=== PATIENT | female | born 1950 | race Caucasian/White ===

== ENCOUNTER 2020-04-10 13:35 | Inpatient (IN) | payer MEDICARE, OTHER ==
[~2020-04-10] VITALS: Ht 160 cm; Wt 86.2 kg
[~2020-04-10 13:35] MED LIST: CIPRO500 MG PO
[2020-04-10] MEDS ORDERED: SODIUM CHLORIDE 0.9% 1000ML 1,000 ML IV STA (13:41)
--- NOTE | 2020-04-10 13:59 | Emergency Department Note ---
History of Present Illnes History of Present Illness Chief Complaint: Genitourinary History of Present Illness This is a 69 year old female . SENT FROM [facility] FOR HEMATURIA, WEAKNESS, AND PSEUDOMONAS IN URINE. CLIENT TO ROOM 9 AND PLACED IN CONTACT ISOLATION. HAS URINARY CATHETER IN PLACE. 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 Any updates have been documented here. (HÉCTOR THOMSON NP) Past Medical History Recent Fever: No Clinical Suspicion of Infectio: Yes New/Unexplained Change in Ment: No Past Medical History: Hypertension, CHF, UTI's, Hyperlipedemia Other Medical History: DYSPHAGIA, AMS UNSPECIFIED; CONSTIPATION;HIGH CHOLESTEROL ; ANEMIA DEMENTIA Past Surgical History: Cholecysctectomy (HÉCTOR THOMSON NP) Social History Smoking Cessation: Never Smoker Alcohol Use: None Any Illegal Drug Use: No TB Exposure/Symptoms: No (HÉCTOR THOMSON NP) Family History Family history of heart diseas: No (HÉCTOR THOMSON NP) Other Last Tetanus: UNKNOWN Any Pre-Existing Lines (PICC,: Yes (patel) (HÉCTOR THOMSON NP) Review of Systems Review of Systems Constitutional: no symptoms EENTM: no symptoms Cardiovascular: no symptoms Respiratory: no symptoms Gastrointestinal: no symptoms Genitourinary: no symptoms Musculoskeletal: no symptoms Neurological: no symptoms Psychological: no symptoms Endocrine: no symptoms Hematological/Lymphatic: no symptoms Review of other systems All other systems reviewed and negative. (HÉCTOR THOMSON NP) Physical Exam Related Data Allergies: Coded Allergies: No Known Allergies (Unverified , 02/17/16) Triage Vital Signs Vital Signs Date Time Temp Pulse Resp B/P (MAP) Pulse Ox O2 Delivery O2 Flow Rate FiO2 04/10/20 13:37 98.0 60 16 129/95 98 Vital signs reviewed: Yes (HÉCTOR THOMSON NP) Physical Exam CONSTITUTIONAL Constitutional: well-nourished HENT HENT: normocephalic, atraumatic HENT L/R: left ext ear normal, right ext ear normal EYES Eyes: conjunctivae normal NECK Neck: ROM normal PULMONARY Pulmonary: effort normal, breath sounds normal CARDIOVASCULAR Cardiovascular: regular rhythm, heart sounds normal, capillary refill normal, normal rate GASTROINTESTINAL Abdominal: soft, nontender, bowel sounds normal GENITOURINARY Genitourinary: exam deferred SKIN Skin: warm, dry; erythema, pale, rash, jaundiced, bruising, lesion, other MUSCULOSKELETAL Musculoskeletal: ROM normal NEUROLOGICAL Neurological: alert, other (orient x 2 ) PSYCHOLOGICAL Psychological: mood/affect normal, behavior normal Exam - additional comments pt hx dementia / pleasent / resting quietly Dr Sweet at bed side eval pt - explained why she was here and plan of care (HÉCTOR THOMSON NP) Results Laboratory Laboratory Laboratory Tests Test 04/10/20 14:24 04/10/20 13:10 White Blood Count 4.22 x10e3/uL (4.8-10.8) Red Blood Count 4.40 x10e6/uL (3.6-5.1) Hemoglobin 11.4 g/dL (12.0-16.0) Hematocrit 38.4 % (34.2-44.1) Mean Corpuscular Volume 87.3 fL (81-99) Mean Corpuscular Hemoglobin 25.9 pg (28-32) Mean Corpuscular Hemoglobin Concent 29.7 g/dL (31-35) Red Cell Distribution Width 16.3 % (11.7-14.4) Platelet Count 171 x10e3/uL (140-360) Neutrophils (%) (Auto) 65.2 % (38.7-80.0) Lymphocytes (%) (Auto) 19.9 % (18.0-39.1) Monocytes (%) (Auto) 6.2 % (4.4-11.3) Eosinophils (%) (Auto) 7.1 % (0.0-6.0) Basophils (%) (Auto) 0.9 % (0.0-1.0) Neutrophils # (Auto) 2.8 (2.1-6.9) Lymphocytes # (Auto) 0.8 (1.0-3.2) Monocytes # (Auto) 0.3 (0.2-0.8) Eosinophils # (Auto) 0.3 (0.0-0.4) Basophils # (Auto) 0.0 (0.0-0.1) Absolute Immature Granulocyte (auto 0.03 x10e3/uL (0-0.1) Prothrombin Time 13.4 seconds (11.9-14.5) Prothromb Time International Ratio 0.96 Activated Partial Thromboplast Time 34.3 seconds (23.8-35.5) Urine Color [employer] [place] (YELLOW) Urine Clarity Cloudy (CLEAR) Urine pH 6.5 (5 - 7) Urine Specific [place] >=1.030 (1.010-1.025) Urine Protein >=300 (NEGATIVE) Urine Glucose (UA) Negative (NEGATIVE) Urine Ketones Negative (NEGATIVE) Urine Blood Large (NEGATIVE) Urine Nitrite Negative (NEGATIVE) Urine Bilirubin Small (NEGATIVE) Urine Urobilinogen 1 mg/dL (0.2 - 1) Urine Leukocyte Esterase Large (NEGATIVE) Urine RBC >50 /HPF (0-5) Urine WBC >50 /HPF (0-5) Urine Epithelial Cells Few /LPF (NONE) Urine Bacteria Many /HPF (NONE) Sodium Level 143 mmol/L (136-145) Potassium Level 4.0 mmol/L (3.5-5.1) Chloride Level 107 mmol/L (98-107) Carbon Dioxide Level 27 mmol/L (22-29) Anion Gap 13.0 mmol/L (8-16) Blood Urea Nitrogen 13 mg/dL (7-26) Creatinine 1.04 mg/dL (0.57-1.11) Estimat Glomerular Filtration Rate 53 ML/MIN (60-) BUN/Creatinine Ratio 13 (6-25) Glucose Level 101 mg/dL (74-118) Calcium Level 8.7 mg/dL (8.4-10.2) Total Bilirubin 0.7 mg/dL (0.2-1.2) Aspartate Amino Transf (AST/SGOT) 16 IU/L (5-34) Alanine Aminotransferase (ALT/SGPT) 8 IU/L (0-55) Alkaline Phosphatase 115 IU/L (40-150) Creatine Kinase 11 IU/L (29-168) Creatine Kinase MB 0.20 ng/mL (0-5.0) Troponin I 0.003 ng/mL (0-0.300) Total Protein 6.9 g/dL (6.5-8.1) Albumin 2.7 g/dL (3.5-5.0) Globulin 4.2 g/dL (2.3-3.5) Albumin/Globulin Ratio 0.6 (0.8-2.0) Lab results reviewed: Yes (HÉCTOR THOMSON NP) Imaging Imaging results reviewed: Yes Impressions Procedure: [id number] DX/CHEST SINGLE (PORTABLE) Exam Date: 04/10/20 Exam Time: 1436 REPORT STATUS: Signed EXAMINATION: CHEST SINGLE (PORTABLE) INDICATION: Pseudomonas in urine. COMPARISON: None FINDINGS: TUBES and LINES: None. LUNGS: Lungs are well inflated. There is no evidence of pneumonia or pulmonary edema. Minimal patchy left basilar opacity, likely atelectasis. PLEURA: No pleural effusion or pneumothorax. HEART AND MEDIASTINUM: The cardiomediastinal silhouette is unremarkable. There are atherosclerotic calcifications within the aorta. BONES AND SOFT TISSUES: No acute osseous lesion. Soft tissues are unremarkable. UPPER ABDOMEN: No free air under the diaphragm. There are cholecystectomy clips. IMPRESSION: No acute thoracic abnormality. Signed by: Dr. Glenna Phipps MD on 04/10/2020 3:06 PM Dictated By: GLENNA PHIPPS MD [id number] Transcribed By: DAVID on 04/10/20 1506 COPY TO: HÉCTOR THOMSON NP~ (HÉCTOR THOMSON NP) Procedures 12 Lead ECG Interpretation Embedded Firmware Engineer: Interpreted by ED physician (Dr Peña) Date: April 10, 2020 Time: 15:29 Rhythm: sinus bradycardia Rate: bradycardia BPM: 50 QRS axis: normal ST segments normal: Yes T waves normal: Yes Other findings: no other findings (HÉCTOR THOMSON NP) Critical Care Time Subsequent provider I assumed direction of critical care for this patient from another provider of my specialty. (HÉCTOR THOMSON NP) Assessment & Plan Assessment & Plan Problems: (1) Urinary tract infection Assessment & Plan 69y f presented to ed from [place] sent to ed for eval admit for iv abx for UTI - Dr Peña in eval pt status - lab ekg cxr ordered - pt medicated w/ ns and tobramycin in ed Dr Peña spoke w/ Dr Rizvi will admit Dr Peña spoke w/ Dr Funez will consult (HÉCTOR THOMSON NP) Depart Disposition: ADMITTED Last Vital Signs Date Time Temp Pulse Resp B/P (MAP) Pulse Ox O2 Delivery O2 Flow Rate FiO2 5/17/20 13:37 98.0 60 16 129/95 98 (HÉCTOR THOMSON ELECTRICAL SYSTEMS DESIGNER) Home Meds Reported Medications Ciprofloxacin Hcl (CIPRO) 500 Mg Tablet, 500 MG PO Q12H, #30 TAB 02/17/16 Medications in the ED Sodium Chloride 1,000 ml @ 0 mls/hr Q0M STAT IV ; Start 04/10/20 at 13:41; Stop 04/10/20 at 13:42 Tobramycin 80 mg ONCE ONCE IV ; Start 04/10/20 at 13:45; Stop 04/10/20 at 13:46; Status UNV (HÉCTOR THOMSON ELECTRICAL SYSTEMS DESIGNER) Attestation Provider Attestation Pt seen and examined with laborer hoisting, pt presents for GENERALIZED WEAKNESS, AND UTI WITH CX GROWING PSEUDOMONAS SENSITIVE ONLY TO TOBRAMYCIN Exam as follows - ALERT, ORIENTED TO NAME & PLACE NOT TIME, GENERALIZED 4/5 STR THROUGHOUT, NON-FOCAL NEURO EXAM I agree with laborer hoisting assessment and disposition. (KENY PEÑA MD) HÉCTOR THOMSON NP April 10, 2020 13:58 KENY PEÑA MD April 10, 2020 15:48
[2020-04-10] MEDS ORDERED: TOBRAMYCIN 40 MG/ML 2ML VIAL IV ONE (14:00)
[2020-04-10] MEDS ORDERED: TOBRAMYCIN IV ONE (14:30)
[2020-04-10] MEDS ORDERED: SODIUM CHLORIDE 0.9% IV ONE (14:30)
[2020-04-10 14:33] LABS: BASOPHILS % 0.9 % (0.0-1.0); EOSINOPHILS # (AUTO) 0.3 (0.0-0.4); EOSINOPHILS % 7.1 % (0.0-6.0); HEMATOCRIT 38.4 % (34.2-44.1); HEMOGLOBIN 11.4 g/dL (12.0-16.0); LYMPHOCYTES # (AUTO) 0.8 (1.0-3.2); LYMPHOCYTES % 19.9 % (18.0-39.1); MEAN CORPUSCULAR HEMOGLOBIN 25.9 pg (28-32); MEAN CORPUSCULAR HGB CONC 29.7 g/dL (31-35); MEAN CORPUSCULAR VOLUME 87.3 fL (81-99); MONOCYTES # (AUTO) 0.3 (0.2-0.8); MONOCYTES % 6.2 % (4.4-11.3); NEUTROPHILS # (AUTO) 2.8 (2.1-6.9); NEUTROPHILS % 65.2 % (38.7-80.0); PLATELET COUNT 171 x10e3/uL (140-360); RED CELL DISTRIBUTION WIDTH 16.3 % (11.7-14.4)
[2020-04-10 14:45] LABS: INR 0.96; PROTHROMBIN TIME 13.4 seconds (11.9-14.5)
[2020-04-10 14:46] LABS: PARTIAL THROMBOPLASTIN TIME 34.3 seconds (23.8-35.5)
[2020-04-10 14:54] LABS: ALBUMIN 2.7 g/dL (3.5-5.0); ALBUMIN/GLOBULIN RATIO 0.6 (0.8-2.0); CALCIUM 8.7 mg/dL (8.4-10.2); CREATININE, SERUM 1.04 mg/dL (0.57-1.11)
[2020-04-10 15:00] LABS: CREATINE KINASE MB 0.2 ng/mL (0-5.0)
--- NOTE | 2020-04-10 15:09 | Diagnostic Imaging Report ---
EXAMINATION: CHEST SINGLE (PORTABLE) INDICATION: Pseudomonas in urine. COMPARISON: None FINDINGS: TUBES and LINES: None. LUNGS: Lungs are well inflated. There is no evidence of pneumonia or pulmonary edema. Minimal patchy left basilar opacity, likely atelectasis. PLEURA: No pleural effusion or pneumothorax. HEART AND MEDIASTINUM: The cardiomediastinal silhouette is unremarkable. There are atherosclerotic calcifications within the aorta. BONES AND SOFT TISSUES: No acute osseous lesion. Soft tissues are unremarkable. UPPER ABDOMEN: No free air under the diaphragm. There are cholecystectomy clips. IMPRESSION: No acute thoracic abnormality. Signed by: Dr. Eber Buitrago MD on 04/10/2020 3:06 PM
[2020-04-10 15:15] LABS: CLARITY,URINE CLOUDY (CLEAR); COLOR,URINE ORANGE (YELLOW); LEUKOCYTE ESTERASE ,URINE LARGE (NEGATIVE); NITRITE,URINE NEGATIVE (NEGATIVE); PROTEIN,URINE DIPSTICK >=300 (NEGATIVE)
[2020-04-10 15:16] LABS: BILIRUBIN,URINE SMALL (NEGATIVE); KETONES,URINE NEGATIVE (NEGATIVE); URINE UROBILINOGEN 1 mg/dL (0.2 - 1)
[2020-04-10 15:21] LABS: WBC,URINE (MAN) >50 /HPF (0-5)
[2020-04-10 15:22] LABS: RBC,URINE >50 /HPF (0-5)
[2020-04-10 15:23] LABS: BACTERIA,URINE MANY /HPF; EPITHELIAL CELLS,URINE FEW /LPF
[2020-04-10] MEDS ORDERED: SODIUM CHLORIDE 0.9% 1000ML 1,000 ML IV ONE (15:45)
[2020-04-10] MEDS ORDERED: ONDANSETRON HCL INJ 2MG/ML 2ML 2 MG/ML VIAL IV PRN (15:45)
[2020-04-10 17:10] VITALS: BP 119/69
--- NOTE | 2020-04-10 17:10 | NUR ---
PATIENT RECEIVED FROM ER PER STRETCHER. ALERT AND VERBALLY RESPONSIVE. SKIN WARM AND DRY TO TOUCH WITH SOME REDNESS TO PERINEAL AREA AND SACRUM, RESPIRATION EVEN AND UNLABORED, ABDOMEN SOFT AND NON DISTENDED. SUPRAPUBIC CATHETER WITH REDNESS AROUND THE SITE. ASSISTED WITH DIAPER CHANGE, HAD A MODERATE BM. BED IN LOWER POSITION AND LOCKED. CALL LIGHT AT REACH.
--- NOTE | 2020-04-10 19:09 | Diagnostic Imaging Report ---
EXAM: CT Abdomen and Pelvis WITHOUT contrast INDICATION: Stone protocol. COMPARISON: None. TECHNIQUE: Abdomen and pelvis were scanned utilizing a multidetector helical scanner from the lung base to the pubic symphysis without administration of IV contrast. Absence of intravenous contrast decreases sensitivity for detection of focal lesions and vascular pathology. Coronal and sagittal reformations were obtained. Stone protocol is performed. IV CONTRAST: None. ORAL CONTRAST: None. RADIATION DOSE: Total DLP: 413.4 mGy*cm Estimated effective dose: (DLP x 0.015 x size factor) mSv COMPLICATIONS: None FINDINGS: LOWER THORAX: Mitral annular calcifications. Trace pericardial effusion. Mild cardiomegaly. Coronary atherosclerosis. Bronchial wall thickening with minimal patchy opacities in the bilateral lower lobes. HEPATOBILIARY: No focal hepatic lesions. No biliary ductal dilation. GALLBLADDER: Status post cholecystectomy. SPLEEN: No splenomegaly. PANCREAS: No focal masses or ductal dilatation. Fatty atrophy. ADRENALS: No adrenal nodules KIDNEYS/URETERS: There is a 1.1 cm conglomerate of stones in the right renal pelvis with mild right pelviectasis and no hydronephrosis. There is a 0.8 cm nonobstructing left lower pole renal stone. Additional punctate bilateral nonobstructing nephrolithiasis. No evidence of ureteral stone. Left-sided double-J internal ureteral stent without hydronephrosis. No evidence of solid mass. GI TRACT: No evidence of bowel obstruction or wall thickening. Moderate amount of stool in the colon. Sigmoid colonic diverticulosis without evidence of colitis. Normal appendix. PELVIC ORGANS/BLADDER: Suprapubic catheter terminates in the bladder which appears decompressed and possibly thick walled. LYMPH NODES: No lymphadenopathy. VESSELS: There is severe atherosclerotic disease in the aorta and major arterial branches. PERITONEUM / RETROPERITONEUM: No free air or fluid. BONES: Unremarkable. SOFT TISSUES: Diffuse mild anasarca. There is a midline decubitus ulcer which does not extend to the bony surface. There is subcutaneous edema within the presacral and posterior sacral soft tissues. No specific findings of osteomyelitis. Skin folds versus subcutaneous decubitus ulcers in the bilateral gluteal regions. IMPRESSION: Bilateral nonobstructing left lithiasis, measuring up to 1.1 cm in the right renal pelvis and 0.8 cm in the left lower pole kidney. Left-sided internal ureteral stent in place. No evidence of ureteral stone. Suprapubic catheter terminates in the bladder which is decompressed and appears mildly thick-walled. Suggest correlation for possible cystitis. Decubitus ulcer superficial to the coccyx which extends inferiorly to the level of the anus. Surrounding inflammatory changes. No specific findings of osteomyelitis. Skin folds versus subcutaneous decubitus ulcers in the bilateral gluteal regions. Recommend clinical correlation. Nonspecific presacral fat stranding may be secondary to anasarca or nonspecific inflammatory changes. Bronchial wall thickening with minimal patchy opacities in the lower lobes, likely representing small foci of aspiration in this patient with dementia. Signed by: Dr. Eber Buitrago MD on 04/10/2020 7:06 PM
[2020-04-10] MEDS ORDERED: ACETAMINOPHEN 325 MG TAB PO PRN (19:15)
[2020-04-10] MEDS ORDERED: HYDRALAZINE HCL 20 MG/ML VIAL IV PRN (19:15)
[2020-04-10] MEDS ORDERED: MELATONIN 5 MG TABLET PO PRN (19:15)
[2020-04-10] MEDS ORDERED: METOPROLOL TART50 MG PO (19:22)
[2020-04-10] MEDS ORDERED: LACTULOSE20 GM/30 M PO (19:22)
[2020-04-10] MEDS ORDERED: MIDODRINE HCL5 MG PO (19:22)
[2020-04-10] MEDS ORDERED: NEPHRO-VITE TABL1 EA PO (19:22)
[2020-04-10] MEDS ORDERED: DOCUSATE SODIU100 MG PO (19:22)
[2020-04-10] MEDS ORDERED: LEVOTHYROXINE75 MCG PO (19:22)
[2020-04-10] MEDS ORDERED: ASPIRIN81 MG PO (19:22)
[2020-04-10] MEDS ORDERED: FERROUS SULFAT325 MG PO (19:22)
[2020-04-10] MEDS ORDERED: ATORVASTATIN CA40 MG PO (19:22)
[2020-04-10] MEDS ORDERED: PRADAXA75 MG PO (19:22)
[2020-04-10] MEDS ORDERED: LORAZEPAM INJ 2 MG/ML VIAL IV PRN (19:30)
[2020-04-10] MEDS ORDERED: ACETAMINOPHEN/CODEINE 300MG - 30MG TAB PO PRN (19:30)
[2020-04-10 20:35] VITALS: BP 103/57
[2020-04-10] MEDS: TOBRAMYCIN IV SCH (20:47)
[2020-04-10] MEDS: SODIUM CHLORIDE 0.9% IV SCH (20:47)
[2020-04-10] MEDS: METOPROLOL TARTRATE 50 MG TAB PO SCH (20:47)
[2020-04-10] MEDS ORDERED: ATORVASTATIN 40 MG TAB PO SCH (21:00)
[2020-04-10 21:25] VITALS: BP 103/57
[2020-04-10] MEDS ORDERED: TOBRAMYCIN 40 MG/ML 2ML VIAL IV SCH (22:00)
[2020-04-11 01:08] VITALS: BP 126/47
[2020-04-11] MEDS: TOBRAMYCIN IV SCH ×2 (05:42→14:43)
[2020-04-11] MEDS: SODIUM CHLORIDE 0.9% IV SCH ×2 (05:42→14:43)
[2020-04-11 05:48] VITALS: BP 108/53
[2020-04-11] MEDS ORDERED: LEVOTHYROXINE SODIUM 75 MCG TAB PO SCH (06:00)
--- NOTE | 2020-04-11 06:38 | NUR ---
patient is resting comfortably in the bed. no distress noted. bed is in lowest position.
[2020-04-11 06:48] LABS: BASOPHILS # (AUTO) 0.1 (0.0-0.1); EOSINOPHILS # (AUTO) 0.3 (0.0-0.4); EOSINOPHILS % 6.3 % (0.0-6.0); HEMOGLOBIN 10.2 g/dL (12.0-16.0); LYMPHOCYTES # (AUTO) 0.9 (1.0-3.2); LYMPHOCYTES % 17.7 % (18.0-39.1); MEAN CORPUSCULAR HEMOGLOBIN 26.8 pg (28-32); MEAN CORPUSCULAR VOLUME 89.2 fL (81-99); MONOCYTES # (AUTO) 0.3 (0.2-0.8); MONOCYTES % 5.3 % (4.4-11.3); NEUTROPHILS # (AUTO) 3.5 (2.1-6.9); NEUTROPHILS % 69.3 % (38.7-80.0); PLATELET COUNT 144 x10e3/uL (140-360); RED BLOOD COUNT 3.81 x10e6/uL (3.6-5.1); RED CELL DISTRIBUTION WIDTH 15.9 % (11.7-14.4)
[2020-04-11 07:01] LABS: ALBUMIN 2.3 g/dL (3.5-5.0); ALBUMIN/GLOBULIN RATIO 0.7 (0.8-2.0); ALKALINE PHOSPHATASE 91 IU/L (40-150); ANION GAP 10.9 mmol/L (8-16); BLOOD UREA NITROGEN 11 mg/dL (7-26); BUN/CREATININE RATIO 13 (6-25); CALCIUM 8.1 mg/dL (8.4-10.2); CARBON DIOXIDE 21 mmol/L (22-29); CHLORIDE 114 mmol/L (98-107); CREATININE, SERUM 0.86 mg/dL (0.57-1.11); EST GLOMERULAR FILTRATION RATE > 60 ML/MIN (60-); GLUCOSE 80 mg/dL (74-118); POTASSIUM 3.9 mmol/L (3.5-5.1); SODIUM 142 mmol/L (136-145)
[2020-04-11 07:02] LABS: ALANINE AMINOTRANSFERASE < 6 IU/L (0-55)
--- NOTE | 2020-04-11 07:14 | NUR ---
PATIENT IN BED RESTING WITH EYES CLOSED, NO DISTRESS NOTED. SUPRAPUBIC CATHETER DRAINING PINKISH URINE. BED IN LOWER POSITION, CALL LIGHT AT REACH.
[2020-04-11] MEDS: FAMOTIDINE 20 MG TAB PO SCH ×2 (07:30→16:30)
[2020-04-11 07:41] VITALS: BP 120/56
[2020-04-11 07:49] VITALS: BP 120/56
[2020-04-11] MEDS: METOPROLOL TARTRATE 50 MG TAB PO SCH (09:00)
[2020-04-11] MEDS ORDERED: DABIGATRAN ETEXILATE 75 MG CAP PO SCH (09:00)
[2020-04-11] MEDS ORDERED: ASPIRIN 81 MG CHEW TAB PO SCH (09:00)
[2020-04-11] MEDS ORDERED: LACTULOSE SYRUP 20 GM/30 ML UDC PO SCH (09:00)
[2020-04-11] MEDS ORDERED: DOCUSATE SODIUM 100 MG CAP PO SCH (09:00)
[2020-04-11] MEDS: FERROUS SULFATE 325 MG TAB PO SCH ×2 (09:10→17:16)
[2020-04-11] MEDS: MIDODRINE HCL 5 MG TABLET PO SCH ×2 (09:10→17:16)
--- NOTE | 2020-04-11 11:08 | NUR ---
WOUND CARE STAFF IN TO SEE PATIENT. NEW ORDER RECEIVED.
[2020-04-11 11:35] VITALS: BP 129/53
--- NOTE | 2020-04-11 14:23 | NUR ---
WOUND CARE CONSULT FOR 69 YO FEMALE HX OF DEMENTIA , UTI NAVYA PUP STATUS AND INTERVENTIONS AND MATTRESS LABS: WBC-PEND HGB_PEND GLUCOSE-PEND SKIN ASSESSMENT COMPLETE PATIENT PRESENTS WITH SACRAL STAGE 2 ULCERATION 0.5CM X0.5CM X0.1CM DENUDED ASTRID AREA RELATED TO MOISTURE IRRITATION RECOMMENDATIONS: NURSING TO CONTINUE TO MAINTAIN MODERATE PUP STATUS AND INTERVENTIONS AND ALTERNATING PRESSURE MATTRESS NURSING TO CONTINUE TO ASSIST PATIENT OUT OF BED FOR MEALS AND MUCH TOLERATED NURSING TO CONTINUE TO ASSIST PATIENT NEEDED WITH MEALS AND NUTRITIONAL SUPPLEMENTS TO ENSURE PROPER REQUIREMENTS FOR HEALING NURSING TO CONTINUE TO OFFLOAD FEET AND HEELS NEEDED WITH PILLOW SUSPENSION WHEN IN BED NURSING TO CLEAN SACRAL STAGE 2 ULCERATION WITH NORMAL SALINE DAILY AND APPLY VENELEX OINTMENT AND ALLEVYN FOAM DRESSING NURSING TO CLEAN ASTRID AREA IRRITATION WITH SOAP AND WATER DAILY AND APPLY REMEDY BARRIER PASTE KEEP PATIENT CLEAN AND DRY Addendum: 04/11/20 at 1429 by Everett Galvan RN Amended: Links added.
--- NOTE | 2020-04-11 14:46 | NUR ---
Spoke with DAX Phillip regarding plan. Possible transfer back to [place] today, pending ID rec for abx. Spoke with pt's daughter in law Mounika Brunson [phone] regarding DC plan. Pt lives at [facility] and family is agreeable with pt returning on discharge. Choice letter placed in front of chart. Spoke to Osmel, director of online merchandising at [facility]. Updated her on discharge plan. States pt can return today, if discharged. Will call back with room number. Clinicals faxed to [facility] at [phone].
--- NOTE | 2020-04-11 15:22 | NUR ---
PATIENT ASSISTED WITH DIAPER CHANGE, HAD A LARGE BM. REPOSITIONED IN BED, CALL LIGHT AT REACH.
[2020-04-11 16:01] VITALS: BP 119/63
--- NOTE | 2020-04-11 16:23 | NUR ---
LONG-TERM FACILITY DISCHARGE INFORMATION PATIENT HAS BEEN ACCEPTED TO: [facility] [address] [place] [address] ACCEPTING STABLE HAND: Dario Rice ACCEPTING MD: Dr. Janay Brody ROOM: 48 NURSE CALL REPORT TO: [phone] IMM SIGNED AND OBTAINED (if applicable): THE FOLLOWING DOCUMENTS MUST ACCOMPANY PATIENT FOR TRANSFER: copy of chart, transfer MAR COPIED CHART: [place], rn progressive care unit RTF: completed and placed with pt's packet at nurses station; MEGHA Gunter informed [id number] DNR: n/a Spoke with Osmel. Informed her that [facility] test every pt for COVID, regardless of symptoms, and results are still pending. She states it's fine to send pt back since they just tested the whole facility last week and pt was negative. Also spoke with Osmel about pt's medications - pt is to not receive Aspirin and Pradaxa needs to be stopped starting Saturday. Pt to return to hospital on Saturday for urologic procedure on Saturday.
--- NOTE | 2020-04-11 18:49 | NUR ---
PATIENT TRANSFERRED TO HALF-WAY FACILITY. REPORT CALLED AND GIVEN TO RECEIVING NURSE. IV TO LEFT AC REMOVED WITH TIP INTACT. ALL PERSONAL ITEMS TAKEN WITH PATIENT. FAMILY MEMBER NOTIFIED OF TRANSFER. LEFT UNIT ON STRETCHER PER AMBULANCE IN STABLE CONDITION.
--- NOTE | 2020-04-12 01:02 | Discharge Summary ---
ADMISSION DIAGNOSES: 1. Pseudomonas urinary tract infection, present on admission. 2. Hypertension. 3. Dementia. 4. Bilateral nonobstructing stone with left stent. 5. Coronary artery disease. 6. Hypothyroidism. DISCHARGE DIAGNOSES: 1. Pseudomonas urinary tract infection, present on admission. 2. Hypertension. 3. Dementia. 4. Bilateral nonobstructing stone with left stent. 5. Coronary artery disease. 6. Hypothyroidism.. HISTORY: Hypertension, dementia, hyperlipidemia, hypothyroidism, CAD, neurogenic bladder with suprapubic catheter placement. SURGICAL HISTORY: Unable to obtain. FAMILY HISTORY: Unable to obtain. SOCIAL HISTORY: Noncontributory. HOSPITAL COURSE: A 69-year-old female, admitted from [facility] for weakness and Pseudomonas in the urine. Per custodial staff, the patient was sent to the hospital to monitor renal function, even though they are able to do tobramycin IV at the facility. Due to the suprapubic catheter, Urology was consulted and Infectious Disease was also consulted. Due to the bilateral nonobstructing stone and the left stent, Urology wants to have a cystoscopy and take out the stones and exchange the stent, but the patient is taking aspirin and Pradaxa in the custodial. Her last dose was yesterday. According to Urology, the patient needs to be off aspirin for one week and according to Dr. Rizvi, she can be off the Pradaxa for 2 days. retirement staff was instructed on these requests. Per Infectious Disease recommendation, the patient is colonized with Pseudomonas. She does not have an acute Pseudomonas UTI. They recommend that she does not get any antibiotics as that will increase her resistance. Dr. Rizvi agrees with plan. The patient was discharged back to [facility] with the aspirin and anticoagulation instructions and will readmit in one week for Urology workup. At the time of discharge, vital signs are stable and the patient afebrile. Dictated by Marjan Kwok NP Festus Rizvi MD MEAGHAN/MODL /[id number]
[2020-04-12] MEDS ORDERED: BALSAM PERU/CASTOR OIL 60 GM OINT...G. TP SCH (09:00)
--- NOTE | 2020-04-12 11:18 | NUR ---
. Pseudomonas urinary tract infection, present on admission. 2. Hypertension. 3. Dementia. 4. Bilateral nonobstructing stone with left stent. 5. Coronary artery disease. 6. Hypothyroidism. [id number] late entery 04/11/2020 patiient was seen and examined
--- NOTE | 2020-04-12 16:19 | Consultation ---
DATE OF CONSULTATION: 04/12/2020 REASON FOR CONSULTATION: UTI. HISTORY OF PRESENT ILLNESS: This patient, who is a 69-year-old female, who comes into the emergency room of [facility] with a diagnosis of altered mental status. The patient, who does have underlying history of hypertension, dementia, hyperlipidemia, obesity, hypothyroidism, suprapubic catheter, neurogenic bladder, and coronary artery disease, comes in with altered mental status. Urine culture shows Pseudomonas. The patient was started on antibiotic and Infectious Disease was consulted. When I saw the patient, she was alert. She is complaining of shoulder pain. Since her hospitalization, there was no fever, no chills. She is confused, but that is her underlying condition. The patient when she first came, she was on aspirin 81 mg daily, atorvastatin 40 daily, Pradaxa, docusate, folic acid, and levothyroxine. PAST MEDICAL HISTORY: In addition to what mentioned above, hypothyroidism. PAST SURGICAL HISTORY: Suprapubic catheter. ALLERGIES: NKA. SOCIAL HISTORY: From halfway. FAMILY HISTORY: Could not be obtained. REVIEW OF SYSTEMS: She denies any as mentioned above. LABORATORY DATA: White count 5.29 and hemoglobin 10.2. Sodium 142, potassium 3.9 with creatinine 0.86. The patient apparently was getting tobramycin. Her blood culture was negative. Urine culture showed 10-50,000 E. coli pansensitive and I was told at halfway she had Pseudomonas aeruginosa. PHYSICAL EXAMINATION: GENERAL: She is currently alert and oriented. Does not seem to be in acute distress. VITAL SIGNS: Stable, currently afebrile. HEENT: She is not icteric. NECK: Supple. CHEST: Clear. COR: S1 and S2. No S3, S4, or murmur. ABDOMEN: Soft. Bowel sounds present. No tenderness. EXTREMITIES: No edema. IMPRESSION: 1. This 69-year-old from a halfway comes with altered mental status. 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 There is no need for antibiotic. Continue local care. Can try to give Hiprex 1 g p.o. b.i.d. 2. No need for antibiotic. Discussed with Internal Medicine. Answered all their questions. 3. Dementia. 4. History of hypothyroidism. Thank you for asking me to see this patient. MD ERIC West/CARMELA /[id number]
[2020-04-12] MEDS ORDERED: [UNRECOGNIZED DRUG - OTHER] TOP (17:09)
[2020-04-12] MEDS ORDERED: ACETAMINOPHEN650 M1 PO (17:09)
[2020-04-12] MEDS ORDERED: MELATONIN3 MG PO (17:09)
[2020-04-12] MEDS ORDERED: ZOFRAN8 MG PO (17:09)
== END 2020-04-11 18:48 | DRG 699 ==
LOC: ER 14:08 → ERHOLD 15:47 → MED/SURG3 16:16
PROVIDERS: ADMIT Internal Medicine; ATTEND Internal Medicine
DX: T83.510A Infection and inflammatory reaction due to cystostomy catheter, initial encounter (principal); N30.00 Acute cystitis without hematuria; R78.81 Bacteremia; N20.1 Calculus of ureter; B96.5 Pseudomonas (aeruginosa) (mallei) (pseudomallei) as the cause of diseases classified elsewhere; I10 Essential (primary) hypertension; F03.90 Unspecified dementia, unspecified severity, without behavioral disturbance, psychotic disturbance, mood disturbance, and anxiety; E78.5 Hyperlipidemia, unspecified; E03.9 Hypothyroidism, unspecified; I25.10 Atherosclerotic heart disease of native coronary artery without angina pectoris; N31.9 Neuromuscular dysfunction of bladder, unspecified; Z96.0 Presence of urogenital implants; L89.892 Pressure ulcer of other site, stage 2; R41.82 Altered mental status, unspecified; D64.9 Anemia, unspecified; E66.9 Obesity, unspecified; Z68.33 Body mass index [BMI] 33.0-33.9, adult; B96.20 Unspecified Escherichia coli [E. coli] as the cause of diseases classified elsewhere
CPT/HCPCS: 36415; 71045; 74176; 80053; 81001; 82550; 82553; 84443; 84484; 85025; 85610; 85730; 87040; 87086; 87186; 87635; 93005; 97139; 99251; J3260; J7030

== ENCOUNTER → 2020-04-13 | Day surgery (SDC) | payer MEDICARE ==
[~2020-04-13] MED LIST changes: +ACETAMINOPHEN650 M1 PO; +ASPIRIN81 MG PO; +ATORVASTATIN CA40 MG PO; +B&O 60MG R/S 60 MG SUPP PR ONE; +BUPIVACAINE HCL 0.5% INJ 30 ML VIAL INJ ONE; +CEFAZOLIN SOD 1 GM/NS 50ML 50 ML IV ONE; +DOCUSATE SODIU100 MG PO; +ETOMIDATE 2 MG/ML 10 ML INJ IV ONE; +FENTANYL CITRATE/PF 100MCG/2 ML INJ ONE; +FERROUS SULFAT325 MG PO; +IOPAMIDOL 300MG/ML 50ML INFUS..BTL IV ONE; +LACTULOSE20 GM/30 M PO; +LEVOTHYROXINE75 MCG PO; +LIDOCAINE 1% W/EPINEPHRINE 20 ML VIAL ONE; +MELATONIN3 MG PO; +METOPROLOL TART50 MG PO; +MIDODRINE HCL5 MG PO; +NEPHRO-VITE TABL1 EA PO; +PRADAXA75 MG PO; +SEVOFLURANE INHAL SOLN 250 ML PEN BTL ONE; +SODIUM CHLORIDE 0.9% IV ONE; +TOBRAMYCIN 40 MG/ML 2ML VIAL IV ONE; +TOBRAMYCIN IV ONE; +ZOFRAN8 MG PO; +[UNRECOGNIZED DRUG - OTHER] TOP
--- NOTE | 2020-04-13 12:44 | Diagnostic Imaging Report ---
OR Fluoroscopy: IMPRESSION: Fluoroscopy service provided in the OR. Interpretation not requested. Signed by: Josiah Rendon MD on 04/13/2020 12:40 PM
[2020-04-13 12:55] VITALS: BP 146/55
--- NOTE | 2020-04-13 14:09 | Operative Report ---
DATE OF PROCEDURE: 04/13/2020 SURGEON: Clayton Du MD SERVICE: Urology. PREOPERATIVE DIAGNOSES: 1. Bilateral nephrolithiasis. 2. Left double-J stent. 3. Urinary tract infection. 4. Chronic suprapubic tube. POSTOPERATIVE DIAGNOSES: 1. Bilateral nephrolithiasis. 2. Left double-J stent. 3. Urinary tract infection. 4. Chronic suprapubic tube. OPERATIONS PERFORMED: 1. Cystoscopy and right retrograde pyelograms under fluoroscopic control, not related to the contralateral side. 2. Placement of double-J stent to the right side, 22 cm long 6-[place]. 3. Removal of double-J stent from the left kidney. 4. Left retrograde pyelograms under fluoroscopy control. 5. Left ureteroscopy with holmium laser fragmentation of stone. 6. Placement of double-J stent to the left side. This is done for hydronephrosis as well as the stone. 7. Interpretation of x-ray. Radiologist not present. 8. Supervision of fluoroscopy. Radiologist not present. 9. Change of suprapubic tube, 24-[place] 5 mL. PHOTO OPTICS TECHNICIAN: None. ANESTHESIA: General. CLINICAL INDICATION NOTE: This is a 69-year-old [facility] patient, who has bilateral nephrolithiasis. She had treatment of the stone initially on the left side by another urologist and in another facility. She has a double-J stent in place. She was brought for assessment of both sides and possible laser treatment of stones on the left. Procedure was discussed with her daughter. Potential benefit and complication discussed and this is a staged procedure. She will require additional procedures in the future. DESCRIPTION OF PROCEDURE AND FINDING: After proper level of anesthesia was achieved, she was placed in lithotomy position, prepped and draped in a sterile fashion. Urethra inspected and is unremarkable. The bladder is quite small and appeared to be having inflammatory changes in the bladder. The double-J stent was protruding to the left ureteral orifice. The right ureteral orifice was identified. Open-end catheter was placed and retrograde pyelogram demonstrating minimal dilation of the ureter and upper collecting system. A possibility of a stone was seen on the x-ray and in the pelvis. The J-stent was then placed with a 6-[place] 22 cm long to the right side. Proper position was verified by x-ray and endoscopy. Following this, the left double-J stent was removed. Open-end catheter was inserted. Retrograde pyelogram demonstrating some minimal dilation. No obstruction of the ureter. Wire was kept in place and a flexible ureteroscopy was done. Stones were identified in the mid calyx, however, was not possible to enter the lower calyx stones. A few stone was seen and fragmented with holmium laser 200 fiber. Following this, a wire was kept in place and a double-J stent 6-[place] 22 cm long was properly positioned on the left side. The bladder was then irrigated. The scope was removed. The suprapubic tube was removed and a 24-[place] 5 mL Jansen catheter was inserted. The suprapubic x-ray was done with the cystogram to verify the proper positioning of the catheter. The patient tolerated the procedure well and was transferred in satisfactory condition to recovery room. If she recovers well, she may be sent back to the [facility]. The procedure was explained and discussed with her daughter. MD TENISHA Dyer/CARMELA /[id number]
--- OUTSIDE RECORDS SUMMARY | 2020-04-14 08:49 | XMS REPORT ---
Author Author [facility] t Organization [facility] Address [address] [place] [address] Phone Unavailable Care Team Providers Care Factory Process Workers Name Role Phone MD Miguel REA PCP HAMPEL, NEHEMIA Attphys Unavailable JUANY AWAD Attphys Unavailable JUANY AWAD Admphys Unavailable Payers Payer Name Policy Type Policy Number Effective Date Expiration Date S ource Advance Directives Directive Decision Effective Date Termination Date Comments Sour ce Yes N/A [facility] Problems Condition Name Condition Details Condition Category Status Onset Date Resolution Date Last Treatment Date Treating Clinician Comments Source Urinary tract infection Problem [facility] Weakness Problem [facility] Dementia Problem [facility] Pseudomonas urinary tract infection Problem [facility] Allergies, Adverse Reactions, Alerts Allergy Name Allergy Type Status Severity Reaction(s) Onset Date Inacti ve Date Treating Clinician Comments Source No Known Allergies DA Active U 2020-03-24 00:00:00 [facility] No Known Allergies DA Active U 2019-06-26 00:00:00 [facility] No Known Allergies DA Active U 2019-05-04 00:00:00 [facility] No Known Allergies DA Active U 2019-03-07 00:00:00 [facility] No Known Allergies DA Active U 2017-11-26 00:00:00 [facility] Social History Social Habit Start Date Stop Date Quantity Comments Source Sex Assigned At 1950 00:00:00 1950 00:00:00 Female [facility] Medications Ordered Medication Name Filled Medication Name Start Date Stop Da te Current Medication? Ordering Clinician Indication Dosage Frequency Signature (SIG) Comments Components Source Aspirin Aspirin Yes 1 [facility] Atorvastatin Calcium Atorvastatin Calcium Yes 40 [facility] Dabigatran Etexilate Mesylate (Pradaxa) 75 Mg CAPSULE Dabigatran Etexilate Mesylate (Pradaxa) 75 Mg CAPSULE Yes 1 [facility] Docusate Sodium Docusate Sodium Yes 100 [facility] Ferrous Sulfate Ferrous Sulfate Yes 1 [facility] Folic Acid/Cyanocob/Pyridoxine (Nephro-Annie Tablet) 1 Ea TAB Folic Acid/Cyanocob/Pyridoxine (Nephro-Annie Tablet) 1 Ea TAB Yes 1 [facility] Lactulose Lactulose Yes 30 [facility] Levothyroxine Sodium Levothyroxine Sodium Yes 75 [facility] Metoprolol Tartrate Metoprolol Tartrate Yes 75 [facility] Midodrine Hcl Midodrine Hcl Yes 5 [facility] Ciprofloxacin Hcl (Cipro) 500 Mg TABLET Ciprofloxacin Hcl (C ipro) 500 Mg TABLET 2020-04-11 00:00:00 No 500 [facility] Vital Signs Vital Name Observation Time Observation Value Comments Source Body Temperature 2020-04-11 16:01:00 98.3 [degF] [facility] BMI (Body Mass Index) 2020-04-10 17:10:00 33.7 kg/m2 [facility] Weight 2020-04-10 13:37:00 190 [lb_av] [facility] Procedures Procedure Date / Time Performed Performing Clinician Eyal wakefield CT of abdomen and pelvis without contrast 2020-04-10 00:00:00 [facility] Encounters Start Date/Time End Date/Time [facility] ID Source 2020-04-10 15:47:00 2020-04-11 18:48:00 Discharged Inpatient 1 JUANY AWAD [facility] [id number] [facility] Results Test Description Test Time Test Comments Results Result Comments Source RETROGRADE PYELOGRAM 2020-04-13 12:40:00 [place] [address] Patient Name: SADA KARIMI MR #: [id number] : 1950 Age/Sex: 69/F Req #: [id number] Adm Physician: Ordered by: ARSLAN GRIGSBY MD Report #: [id number] Location: OR Room/Bed: Procedure: [id number] DX/RETROGRADE PYELOGRAM Exam Date: 04/13/20 Exam Time: 946 REPORT STATUS: Signed OR Fluoroscopy: IMPRESSION: Fluoroscopy service provided in the OR. Interpretation not requested. Signed by: Josiah Gandhi MD on 04/13/2020 12:40 PM Dictated By: JOSIAH GANDHI MD 1240 [address] anscribed By: DAVID on 04/13/20 1240 COPY TO: ARSLAN GRIGSBY MD Blood leukocytes automated count (number/volume) 2020-04-11 05:20:00 Test Item White Blood Count (test code = 6690-2) 5.09 [facility] automated count (number/volume)2020-04-11 05:20:00* Test Item Value Reference Range Interpretation Comments Red Blood Count (test code = 789-8) 3.81 [facility] hemoglobin measurement (moles/volume)2020-04-11 05:20:00* Test Item Value Reference Range Interpretation Comments Hemoglobin (test code = 77582-1) 10.2 [facility] blood hematocrit (volume fraction)2020-04-11 05:20:00* Test Item Value Reference Range Interpretation Comments Hematocrit (test code = 4544-3) 34.0 [facility]Automated erythrocyte mean corpuscular dsuapd5843-75-04 05:20:00* Test Item Value Reference Range Interpretation Comments Mean Corpuscular Volume (test code = 787-2) 89.2 [facility]Autom[facility] erythrocyte mean corpuscular hemoglobin (mass per erythrocyte)2020-04-11 05:20:00* Test Item Value Reference Range Interpretation Comments Mean Corpuscular Hemoglobin (test code = 785-6) 26.8 [facility] CampusAutomated erythrocyte mean corpuscular hemoglobin concentration measurement (mass/volume)2020-04-11 05:20:00* Test Item Value Reference Range Interpretation Comments Mean Corpuscular Hemoglobin Concent (test code = 786-4) 30.0 [facility] CampusRDW XndJr-Fcc7137-00-18 05:20:00* Test Item Value Reference Range Interpretation Comments Red Cell Distribution Width (test code = 91881-4) 15.9 [facility] CampusAutomated blood platelet count (count/volume)2020-04-11 05:20:00* Test Item Value Reference Range Interpretation Comments Platelet Count (test code = 777-3) [address] [facility] segmented neutrophil count as percentage of total luqtzsrbwx4411-33-38 05:20:00* Test Item Value Reference Range Interpretation Comments Neutrophils (%) (Auto) (test code = 61695-7) 69.3 [facility] CampusAutomated blood lymphocyte count as percentage ot total wdzikibluz7264-63-06 05:20:00* Test Item Value Reference Range Interpretation Comments Lymphocytes (%) (Auto) (test code = 736-9) 17.7 [facility] CampusAutom[facility] blood monocyte count as percentage of total hrbswvjzwe0735-46-86 05:20:00* Test Item Value Reference Range Interpretation Comments Monocytes (%) (Auto) (test code = 5905-5) 5.3 [facility] CampusAutomated blood eosinophil count as percentage of total qnjbwuevzl5547-25-45 05:20:00* Test Item Value Reference Range Interpretation Comments Eosinophils (%) (Auto) (test code = 713-8) 6.3 [facility] CampusAutomated blood basophil count as percentage of total xtotsmcamc8318-33-02 05:20:00* Test Item Value Reference Range Interpretation Comments Basophils (%) (Auto) (test code = 706-2) 1.0 [facility] CampusFluoroscopic procedure less than one hour itxkxssm0743-14-96 05:20:00* Test Item Value Reference Range Interpretation Comments IM GRANULOCYTES % (test code = IM GRANULOCYTES %) 0.4 [facility] CampusAutom[facility] blood neutrophil count 2020-04-11 05:20:00* Test Item Value Reference Range Interpretation Comments Neutrophils # (Auto) (test code = 751-8) 3.5 [facility] lymphocytes count (number/volume) 2020-04-11 05:20:00* Test Item Value Reference Range Interpretation Comments Lymphocytes # (Auto) (test code = 65394-8) 0.9 [facility] monocytes automated count (number/volume)2020-04-11 05:20:00* Test Item Value Reference Range Interpretation Comments Monocytes # (Auto) (test code = 742-7) 0.3 [facility] CampusAutomated blood eosinophil count 2020-04-11 05:20:00* Test Item Value Reference Range Interpretation Comments Eosinophils # (Auto) (test code = 711-2) 0.3 [facility] CampusAutomated blood basophil count (count/volume)2020-04-11 05:20:00* Test Item Value Reference Range Interpretation Comments Basophils # (Auto) (test code = 704-7) 0.1 [facility] CampusFluoroscopic procedure less than one hour zecjhcmn6562-20-01 05:20:00* Test Item Value Reference Range Interpretation Comments Absolute Immature Granulocyte (auto (kaz t code = Absolute Immature Granulocyte (auto) 0.02 [facility] sodium measurement (moles/volume)2020-04-11 05:20:00* Test Item Value Reference Range Interpretation Comments Sodium Level (test code = 2951-2) 142 [facility] plasma potassium measurement (moles/volume)2020-04-11 05:20:00* Test Item Value Reference Range Interpretation Comments Potassium Level (test code = 2823-3) 3.9 [facility] plasma chloride measurement (moles/volume)2020-04-11 05:20:00* Test Item Value Reference Range Interpretation Comments Chloride Level (test code = 2075-0) 114 [facility] or plasma carbon dioxide, total measurement (moles/volume)2020-04-11 05:20:00* Test Item Value Reference Range Interpretation Comments Carbon Dioxide Level (test code = 2028-9) 21 [facility] or plasma anion wra5049-10-51 05:20:00* Test Item Value Reference Range Interpretation Comments Anion Gap (test code = 41185-5) 10.9 [facility] plasma urea nitrogen measurement (mass/volume)2020-04-11 05:20:00* Test Item Value Reference Range Interpretation Comments Blood Urea Nitrogen (test code = 3094-0) 11 [facility] plasma creatinine measurement (mass/volume)2020-04-11 05:20:00* Test Item Value Reference Range Interpretation Comments Creatinine (test code = 2160-0) 0.86 [facility] or plasma urea nitrogen/creatinine mass ycydc7003-46-37 05:20:00* Test Item Value Reference Range Interpretation Comments BUN/Creatinine Ratio (test code = 3097-3) 13 [facility] CampusEstimated glomerular filtration rate (GFR) egkvnnawkksng2793-07-75 05:20:00* Test Item Value Reference Range Interpretation Comments Estimat Glomerular Filtration Rate (test code = 973024587) > 60 [facility] CampusGlucose mitjkvwuucj2567-33-31 05:20:00* Test Item Value Reference Range Interpretation Comments Glucose Level (test code = AJC6414) 80 [facility] plasma calcium measurement (mass/volume)2020-04-11 05:20:00* Test Item Value Reference Range Interpretation Comments Calcium Level (test code = 98933-0) 8.1 [facility] or plasma total bilirubin measurement (mass/volume)2020-04-11 05:20:00* Test Item Value Reference Range Interpretation Comments Total Bilirubin (test code = 1975-2) 0.6 [facility] CampusFluoroscopic procedure less than one hour qmjdboxa9837-97-34 05:20:00* Test Item Value Reference Range Interpretation Comments Aspartate Amino Transf (AST/SGOT) (test code = Aspartate Amino Transf (AST/SGOT)) 13 [facility] or plasma alanine aminotransferase measurement (enzymatic activity/volume)2020-04-11 05:20:00* Test Item Value Reference Range Interpretation Comments Alanine Aminotransferase (ALT/SGPT) (test code = 1742-6) < 6 [facility] or plasma protein measurement (mass/volume)2020-04-11 05:20:00* Test Item Value Reference Range Interpretation Comments Total Protein (test code = 2885-2) 5.6 [facility] or plasma albumin measurement (mass/volume)2020-04-11 05:20:00* Test Item Value Reference Range Interpretation Comments Albumin (test code = 1751-7) 2.3 [facility] CampusPlasma globulin measurement (mass/volume) 2020-04-11 05:20:00* Test Item Value Reference Range Interpretation Comments Globulin (test code = 44425-8) 3.3 [facility] or plasma albumin/globulin mass ceidp1779-19-42 05:20:00* Test Item Value Reference Range Interpretation Comments Albumin/Globulin Ratio (test code = 1759-0) 0.7 [facility] or plasma alkaline phosphatase measurement (enzymatic activity/volume)2020-04-11 05:20:00* Test Item Value Reference Range Interpretation Comments Alkaline Phosphatase (test code = 6768-6) 91 [facility]er[facility] or plasma thyrotropin measurement by detection limit <= 0.005 miu/l (units/volume)2020-04-11 05:20:00* Test Item Value Reference Range Interpretation Comments Thyroid Stimulating Hormone (TSH) (test code = 37982-7) 7.359 [facility] CampusCT ABDOMEN/PELVIS PZ1986-55-06 17:02:00 [place] [address] Patient Name: SADA KARIMI MR #: [id number] : 1950 Age/Sex: 69/F Req #: [id number] Adm Physician: JUANY AWAD MD Ordered by: KENY PEÑA MD Re port #: [id number] Location: [facility] Room/ Bed: [facility] Procedure: CT/CT ABDOMEN /PELVIS WO Exam Date: 04/10/20 Exam Time: 1600 REPORT STATUS: Signed EXAM: CT Abdome n and Pelvis WITHOUT contrast INDICATION: Stone protocol. COMPARISON : None. TECHNIQUE: Abdomen and pelvis were scanned utilizing a multidetecto r helical scanner from the lung base to the pubic symphysis without administra tion of IV contrast. Absence of intravenous contrast decreases sensitivity for detection of focal lesions and vascular pathology. Coronal and sagittal refor mations were obtained. Stone protocol is performed. IV CONTRAST: None. ORAL CONTRAST: None. RADIATION DOSE: Total DL P: 413.4 mGy*cm Estimated effective dose: (DLP x 0.015 x size fac tor) mSv COMPLICATIONS: None FINDINGS: LOWER THORAX: Mitral annular calcifications. Trace pericardial effusion. Mild cardiomegaly. Daniels ry atherosclerosis. Bronchial wall thickening with minimal patchy opacities in the bilateral lower lobes. HEPATOBILIARY: No focal hepatic lesions. N o biliary ductal dilation. GALLBLADDER: Status post cholecystectomy. SPLEEN: No splenomegaly. PANCREAS: No focal masses or ductal dilatation. Fatty atrophy. ADRENALS: No adrenal nodules KIDNEYS/URETERS: There is a 1.1 cm conglomerate of stones in the right renal pelvis with mild right pelviectasis and no hydronephrosis. There is a 0.8 cm nonobstructing left lowe r pole renal stone. Additional punctate bilateral nonobstructing nephrolithias is. No evidence of ureteral stone. Left-sided double-J internal ureteral stent without hydronephrosis. No evidence of solid mass. GI TRACT: No evidence of bowel obstruction or wall thickening. Moderate amount of stool in the colo n. Sigmoid colonic diverticulosis without evidence of colitis. Normal appendix . PELVIC ORGANS/BLADDER: Suprapubic catheter terminates in the bladder whic h appears decompressed and possibly thick walled. LYMPH NODES: No lymphad enopathy. VESSELS: There is severe atherosclerotic disease in the aorta and major arterial branches. PERITONEUM / RETROPERITONEUM: No free air or fl uid. BONES: Unremarkable. SOFT TISSUES: Diffuse mild anasarca. There i s a midline decubitus ulcer which does not extend to the bony surface. There i s subcutaneous edema within the presacral and posterior sacral soft tissues. N o specific findings of osteomyelitis. Skin folds versus subcutaneous decubitus ulcers in the bilateral gluteal regions. IMPRESSION: Bilateral nonob structing left lithiasis, measuring up to 1.1 cm in the right renal pelvis and 0.8 cm in the left lower pole kidney. Left-sided internal ureteral stent in p lace. No evidence of ureteral stone. Suprapubic catheter terminates in the bladder which is decompressed and appears mildly thick-walled. Suggest correla tion for possible cystitis. Decubitus ulcer superficial to the coccyx which extends inferiorly to the level of the anus. Surrounding inflammatory changes . No specific findings of osteomyelitis. Skin folds versus subcutaneous decubi tus ulcers in the bilateral gluteal regions. Recommend clinical correlation . Nonspecific presacral fat stranding may be secondary to anasarca or nons pecific inflammatory changes. Bronchial wall thickening with minimal patc hy opacities in the lower lobes, likely representing small foci of aspiration in this patient with dementia. Signed by: Dr. Glenna Phipps MD on 04/10/2020 7 :06 PM Dictated By: GLENNA PHIPPS MD 05 Transcribed By: DAVID on 04/10/201905 COPY TO: KENY SMITH MD CHEST SINGLE (PORTABLE)2020-04-10 15:05:00 [place] [address] Patient Name: SADA KARIMI MR #: [id number] : 1950 Age/Sex: 69/F Req #: [id number] Adm Physician: Ordered by: HÉCTOR THOMSON CONTRACT PROCESSOR Report #: [id number] Location: [facility] bah/Bed: Procedure: [id number] DX/CHEST SI NGLE (PORTABLE) Exam Date: 04/10/20 Exam Time: 1436 REPORT STATUS: Signed EXAMINATIO N: CHEST SINGLE (PORTABLE) INDICATION: Pseudomonas in urine. COMP ARISON: None FINDINGS: TUBES and LINES: None. LUNGS: Lungs a re well inflated. There is no evidence of pneumonia or pulmonary edema. Minim al patchy left basilar opacity, likely atelectasis. PLEURA: No pleural eff usion or pneumothorax. HEART AND MEDIASTINUM: The cardiomediastinal silho uette is unremarkable. There are atherosclerotic calcifications within the aor ta. BONES AND SOFT TISSUES: No acute osseous lesion. Soft tissues are u nremarkable. UPPER ABDOMEN: No free air under the diaphragm. There are chol ecystectomy clips. IMPRESSION: No acute thoracic abnormality. Sig jose by: Dr. Glenna Phipps MD on 04/10/2020 3:06 PM Dictated By: GLENNA Calixto 150 Transcribed By: ODALYS PEREZ on 04/10/20 1506 COPY TO: HÉCTOR THOMSON NP Prothrombin time (PT) in platelet poor plasma by coagulation josmr7596-34-13 13:10:00* Test Item Value Reference Range Interpretation Comments Prothrombin Time (test code = 5902-2) 13.4 [facility]INR in Platelet poor plasma by Coagulation zhffy8889-54-53 13:10:00* Test Item Value Reference Range Interpretation Comments Prothromb Time International Ratio (test code = 6301-6) 0.96 [facility] CampusActivated partial thromboplastin time (aPTT) in platelet poor plasma by coagulation gnilg0680-50-92 13:10:00* Test Item Value Reference Range Interpretation Comments Activated Partial Thromboplast Time (test code = 93295-5) 34.3 [facility] CampusUrine color hpqkkjsunivts1260-19-08 13:10:00* Test Item Value Reference Range Interpretation Comments Urine Color (test code = 5778-6) ORANGE [facility] CampusUrine cmpctnh7627-61-32 13:10:00* Test Item Value Reference Range Interpretation Comments Urine Clarity (test code = 94965-3) CLOUDY [facility] Hospitalpecific gravity of Urine by Test strip 2020-04-10 13:10:00* Test Item Value Reference Range Interpretation Comments Urine Specific [place] (test code = 5811-5) >=1.030 [facility] pH measurement by automated test fsthb3500-58-60 13:10:00* Test Item Value Reference Range Interpretation Comments Urine pH (test code = 87350-9) 6.5 [facility] CampusUrine leukocyte esterase detection by esaysplv4767-88-52 13:10:00* Test Item Value Reference Range Interpretation Comments Urine Leukocyte Esterase (test code = 5799-2) LARGE [facility] CampusUrine nitrite lelzvxife1282-77-40 13:10:00* Test Item Value Reference Range Interpretation Comments Urine Nitrite (test code = 36658-3) NEGATIVE [facility]Urine protein measurement by test strip (mass/volume)2020-04-10 13:10:00* Test Item Value Reference Range Interpretation Comments Urine Protein (test code = 5804-0) >=300 [facility] CampusUrine glucose ndckhwxxu1670-84-18 13:10:00* Test Item Value Reference Range Interpretation Comments Urine Glucose (UA) (test code = 2349-9) NEGATIVE [facility] CampusUrine ketones detection by automated test srxkc0565-20-80 13:10:00* Test Item Value Reference Range Interpretation Comments Urine Ketones (test code = 38197-9) NEGATIVE [facility] CampusUrine urobilinogen measurement by test strip (mass/volume)2020-04-10 13:10:00* Test Item Value Reference Range Interpretation Comments Urine Urobilinogen (test code = 00997-3) 1 [facility] CampusUrine total bilirubin measurement (mass/volume)2020-04-10 13:10:00* Test Item Value Reference Range Interpretation Comments Urine Bilirubin (test code = 1978-6) SMALL [facility] CampusUrine erythrocytes zvrrqfgia4788-29-91 13:10:00* Test Item Value Reference Range Interpretation Comments Urine Blood (test code = 49990-3) LARGE [facility] CampusAutomated urine sediment leukocyte count by microscopy (number/high power field)2020-04-10 13:10:00* Test Item Value Reference Range Interpretation Comments Urine WBC (test code = 5821-4) >50 [facility] CampusErythrocytes detection in urine sediment by light pkinjsbzkv5310-19-61 13:10:00* Test Item Value Reference Range Interpretation Comments Urine RBC (test code = 30852-2) >50 [facility] CampusBacteria detection in urine sediment by light fsyrdznclt6432-27-70 13:10:00* Test Item Value Reference Range Interpretation Comments Urine Bacteria (test code = 38737-7) MANY [facility] CampusEpithelial cells detection in urine sediment by light ewkbsxcatl2322-44-06 13:10:00* Test Item Value Reference Range Interpretation Comments Urine Epithelial Cells (test code = 29025-1) FEW [facility] or plasma creatine kinase measurement (enzymatic activity/volume)2020-04-10 13:10:00* Test Item Value Reference Range Interpretation Comments Creatine Kinase (test code = 2157-6) 11 [facility] or plasma creatine kinase MB measurement (mass/volume)2020-04-10 13:10:00* Test Item Value Reference Range Interpretation Comments Creatine Kinase MB (test code = 51271-8) 0.20 [facility] CampusTroponin I measurement by highly sensitive enzyme zdbizwgfahj1164-21-53 13:10:00* Test Item Value Reference Range Interpretation Comments Troponin I (test code = 20134-2) 0.003 [facility] CampusBlood exgboim7492-58-96 13:10:00* Test Item Value Reference Range Interpretation Comments Blood Culture (test code = 32365523) NO GROWTH AFTER 24 HOURS [facility] CampusBacterial urine xtmhkwd3609-64-69 13:10:00* Test Item Value Reference Range Interpretation Comments Urine Culture (test code = 630-4) GRAM NEGATIVE BACILLUS [facility] CampusTROPONIN-V2642-82-81 08:22:00* Test Item Value Reference Range Interpretation Comments TROPONIN-I (test code = TROPI) <0.015 ng/mL 0-0.045 N - CT ABD PELVIS W/DRVG2794-65-35 08:11:00 Name: SADA KARIMI [facility] : 1950 Age/S: 69 / F [address] Unit #: [id number] Loc: [place] [address] Phys: Carlos Townsend DO Acct: [id number] Dis Date: Status: REG ER PHONE #: [phone] Exam Date: 03/24/2020753 FAX #: [phone] Reason: abd pain EXAMS: CPT CODE: [id number] CT ABD PELVIS W/CONT 37238 HISTORY: Abdominal pain. COMPARISON: CT scan from February 29, 2020. Location: [facility]. CT abdomen and pelvis with IV contrast: 100 mL of Isovue-370. Automated exposure control. CT of abdomen: The lung bases demonstrating small left effusion. Dependent changes. Cardiomegaly with small pericardial effusion. The liver is enhancing homogeneously. No mass. Patient is post cholecystectomy. Portal vein and hepatic artery are patent. Liver is not enlarged. Unremarkable spleen with accessory spleens. Stomach is distended incompletely and is very limited in evaluation. Pancreas is enhancing homogeneously. Unremarkable adrenals with hyperplasia on the left. Both kidneys are free from hydroureteronephrosis with double-J stent noted left side to be in good position. Multiple calyceal stones seen previously are poorly visible but noted on either side and appear essentially unchanged. Partially obstructing 6.6 mm right renal pelvic stone. Excretion is visi ble on the right and not clearly seen on the left. Delayed enhancement as well on the left kidney. No pathologic adenopathy. Heavy atheros clerotic calcifications of the abdominal and pelvic vasculature which bernadette ins patent. No bowel obstruction or colitis or diverticulitis or e nteritis. Constipation. CT PELVIS: Appendix i s normal. Pelvic bowel loops are unobstructed with extensive sigmoid dive rticulosis. Fecal impaction in the rectosigmoid colon with mild pericolon ic inflammation. Correlate for stercoral colitis. Double-J stent on the left. Suprapubic catheter noted within the PAGE 1 Signed Report (CONTINUED) Name: SADA KARIMI [facility] : 1950 Age/S: 69 / F [address] [facility] Unit #: [id number] Loc: [place] [address] Phys: Carlos Townsend DO Acct: [id number] Dis Date: atus: REG ER PHONE #: [phone] Exam [facility] e: 03/24/2020 075 FAX #: [phone] Reason: abd zuleika n EXAMS: CPT CODE: [id number] CT ABD PELVIS W/CONT 90044 <Continued> decompressed urinary bladder is well which is difficult to assess. Unremarkable uterus. Ovaries are not clearly identified separately. No free fluid or free air or abscess. No pelvic pathologic adenopathy. Subcutaneous tissues and musculature are normal in appearance. No lytic or blastic lesions noted within the bony skeleton. DJD. Bone island within the posterior lip of the left acetabulum. IMPRESSION: Delayed enhancement and no excretion noted within the left kidney with double-J stent which is in good position. No overt hydroureteronephrosis noted. No hydroureteronephrosis on the right with partially obstructing renal pelvic stone measuring 6.6 mm. Decompressed urinary bladder with suprapubic catheter and left sided double-J stent. Normal appendix without bowel obstruction. Moderate amount of fecal material in the rectosigmoid colon with inflammation may suggest stercoral colitis. Sigmoid diverticulosis without diverticulitis. No free fluid or free air or abscess. at 0811 Reported and signed by: Ty Avery M.D. CC: Carlos Townsend DO Technologist:RT Bry(R),CT CTDI: DLP: Trnscb Date/Time: 03/24/2020 (810) [email or web address] Orig Print D/T: S: 03/24/2020 (813) PAGE 2 Signed Report BASIC METABOLIC [id number] 08:04:00* Test Item Value Reference Range Interpretation Comments SODIUM (test code = NA) 142 mmol/L 136-145 N POTASSIUM (test code = K) 4.6 mmol/L 3.5-5.1 N CHLORIDE (test code = CL) 110.0 mmol/L 98-107 H CARBON DIOXIDE (test code = CO2) 23.0 mmol/L 21-32 N ANION GAP (test code = GAP) 13.6 10-20 N GLUCOSE (test code = GLU) 82 mg/dL 74-106 N BLOOD UREA NITROGEN (test code = BUN) 14 mg/dL 7-18 N GLOMERULAR FILTRATION RATE (test code = GFR) > 60 mL/min >=60 Estimated GFR by using Modified MDRD formula.Chronic kidney disease is defined as either kidney damageor GFR <60 mL/min/1.73 m2 for >3 months. CREATININE (test code = CREAT) 0.90 mg/dL 0.55-1.02 N Note change in reference range due to change in reagent. BUN/CREATININE RATIO (test code = BUN/CREA) 15.6 10-20 N CALCIUM (test code = CA) 8.0 mg/dL 8.5-10.1 L HEPATIC FUNCTION [id number] 08:04:00* Test Item Value Reference Range Interpretation Comments TOTAL PROTEIN (test code = PROT) 6.9 gram/dL 6.4-8.2 N ALBUMIN (test code = ALB) 2.2 g/dL 3.4-5.0 L GLOBULIN (test code = GLOB) 4.7 gram/dL 2.7-4.2 H ALBUMIN/GLOBULIN RATIO (test code = A/G) 0.5 0.75-1.50 L BILIRUBIN TOTAL (test code = BILT) 0.50 mg/dL 0.0-1.0 N BILIRUBIN DIRECT (test code = BILD) 0.12 mg/dL 0.0-0.20 N SGOT/AST (test code = AST) 21 IUnit/L 15-37 N SGPT/ALT (test code = ALT) 8 IUnit/L 12-78 L ALKALINE PHOSPHATASE TOTAL (test code = ALKP) 112 IUnit/L 45-117 N Note change in reference range due to change in reagent. [id number] 08:04:00* Test Item Value Reference Range Interpretation Comments LIPASE (test code = LIP) 66 U/L 73.0-393.0 L BASIC METABOLIC [id number] 07:16:00* Test Item Value Reference Range Interpretation Comments SODIUM (test code = NA) 142 mmol/L 136-145 N POTASSIUM (test code = K) 4.6 mmol/L 3.5-5.1 N CHLORIDE (test code = CL) 110.0 mmol/L 98-107 H CARBON DIOXIDE (test code = CO2) 23.0 mmol/L 21-32 N ANION GAP (test code = GAP) 13.6 10-20 N GLUCOSE (test code = GLU) 82 mg/dL 74-106 N BLOOD UREA NITROGEN (test code = BUN) 14 mg/dL 7-18 N GLOMERULAR FILTRATION RATE (test code = GFR) > 60 mL/min >=60 Estimated GFR by using Modified MDRD formula.Chronic kidney disease is defined as either kidney damageor GFR <60 mL/min/1.73 m2 for >3 months. CREATININE (test code = CREAT) 0.90 mg/dL 0.55-1.02 N Note change in reference range due to change in reagent. BUN/CREATININE RATIO (test code = BUN/CREA) 15.6 10-20 N CALCIUM (test code = CA) 8.0 mg/dL 8.5-10.1 L HEPATIC FUNCTION [id number] 07:16:00* Test Item Value Reference Range Interpretation Comments TOTAL PROTEIN (test code = PROT) gram/dL 6.4-8.2 ALBUMIN (test code = ALB) g/dL 3.4-5.0 GLOBULIN (test code = GLOB) gram/dL 2.7-4.2 ALBUMIN/GLOBULIN RATIO (test code = A/G) 0.75-1.50 BILIRUBIN TOTAL (test code = BILT) mg/dL 0.0-1.0 BILIRUBIN DIRECT (test code = BILD) mg/dL 0.0-0.20 SGOT/AST (test code = AST) IUnit/L 15-37 SGPT/ALT (test code = ALT) IUnit/L 12-78 ALKALINE PHOSPHATASE TOTAL (test code = ALKP) IUnit/L 45-117 [id number] 07:16:00* Test Item Value Reference Range Interpretation Comments LIPASE (test code = LIP) U/L 73.0-393.0 BASIC METABOLIC [id number] 07:08:00* Test Item Value Reference Range Interpretation Comments SODIUM (test code = NA) 142 mmol/L 136-145 N POTASSIUM (test code = K) 4.6 mmol/L 3.5-5.1 N CHLORIDE (test code = CL) 110.0 mmol/L 98-107 H CARBON DIOXIDE (test code = CO2) mmol/L 21-32 ANION GAP (test code = GAP) 10-20 GLUCOSE (test code = GLU) mg/dL 74-106 BLOOD UREA NITROGEN (test code = BUN) mg/dL 7-18 GLOMERULAR FILTRATION RATE (test code = GFR) mL/min >=60 CREATININE (test code = CREAT) mg/dL 0.55-1.02 BUN/CREATININE RATIO (test code = BUN/CREA) 10-20 CALCIUM (test code = CA) mg/dL 8.5-10.1 HEPATIC FUNCTION [id number] 07:08:00* Test Item Value Reference Range Interpretation Comments TOTAL PROTEIN (test code = PROT) gram/dL 6.4-8.2 ALBUMIN (test code = ALB) g/dL 3.4-5.0 GLOBULIN (test code = GLOB) gram/dL 2.7-4.2 ALBUMIN/GLOBULIN RATIO (test code = A/G) 0.75-1.50 BILIRUBIN TOTAL (test code = BILT) mg/dL 0.0-1.0 BILIRUBIN DIRECT (test code = BILD) mg/dL 0.0-0.20 SGOT/AST (test code = AST) IUnit/L 15-37 SGPT/ALT (test code = ALT) IUnit/L 12-78 ALKALINE PHOSPHATASE TOTAL (test code = ALKP) IUnit/L 45-117 [id number] 07:08:00* Test Item Value Reference Range Interpretation Comments LIPASE (test code = LIP) U/L 73.0-393.0 CBC W/O [id number] 06:33:00* Test Item Value Reference Range Interpretation Comments WHITE BLOOD CELL (test code = WBC) 6.1 K/mm3 4.5-12.5 N RED BLOOD CELL (test code = RBC) 4.21 mill/mm3 3.7-5.2 N HEMOGLOBIN (test code = HGB) 11.1 gram/dL 11.5-15.5 L HEMATOCRIT (test code = HCT) 37.2 % 36.0-46.0 N MEAN CELL VOLUME (test code = MCV) 88.4 fL 80-98 N MEAN CELL HGB (test code = MCH) 26.4 picogram 27.0-33.0 L MEAN CELL HGB CONCETRATION (test code = MCHC) 29.8 gram/dL 33.0-36. 0 L RED CELL DISTRIBUTION WIDTH (test code = RDW) 16.8 % 11.6-16. 2 H PLATELET COUNT (test code = PLT) 172 K/mm3 150-450 N MEAN PLATELET VOLUME (test code = MPV) 10.4 fL 6.7-11.0 N - XR CHEST 1 [id number] 06:21:00 FAX: Carlos Townsend DO [place]: B St: REG Name: SADA LANDAVERDE [facility] : [birth year] Age/S: 69/F [address] Unit #: [id number] Loc: [place] [address] Phys: Carlos Townsend DO Acct: [id number] Dis Date: Status: REG ER PHONE #: [phone] Exam Date: 03/24/2020603 FAX #: [phone] Reason: abd pain EXAMS: CPT CODE: [id number] XR CHEST 1 V 35761 - XR CHEST 1 V, 03/24/2020 5:49 AM Reason For Examination: abd pain Comparison: February 29, 2020 Location: R16 Findings LUNGS : No definite pulmonary edema or consolidation, although exam findings limited by low lung volumes PLEURA: No pleural effusion s CARDIOMEDIASTINAL SILHOUETTE Unremarkable IMPRESSION: No plain film evidence of acute cardiopulmonary abnormality within the given limitations above Elect ronically Signed by Rosana Akers M.D. on 02/25 at 0621 Reported and signed by: Maximus Akers M.D. CC: Carlos Townsend DO Technologist: LUZ ESPINOZA JR Trnscrd Date/Time/By: 03/24/2020 (620) : By: [email or web address] Orig Print D/T: S: 03/24/2020 (1222) PAGE 1 Signed Report URINALYSIS [id number] 06:19:00* Test Item Value Reference Range Interpretation Comments UA COLOR (test code = COLU) RED YELLOW A Previously reported result: ORANGE Edited by: [email or web address] on 03/24/20:15790003/24/20 06: COLOR previously reported as: ORANGE H UA APPEARANCE (test code = APPU) TURBID CLEAR A UA GLUCOSE DIPSTICK (test code = DGLUU) NEGATIVE mg/dL NEGATIVE UA BILIRUBIN DIPSTICK (test code = BILU) NEGATIVE mg/dL NEGATIVE UA KETONE DIPSTICK (test code = KETU) NEGATIVE mg/dL NEGATIVE UA SPECIFIC GRAVITY (test code = SGU) 1.012 1.001-1.035 UA BLOOD DIPSTICK (test code = VU) 1.0 mg/dL (3+) mg/dL NEGATIVE A UA PH DIPSTICK (test code = NIDHI) 6.0 5.0-8.0 UA PROTEIN DIPSTICK (test code = PROU) 70 (1+) mg/dL NEGATIVE A UA UROBILINIOGEN DIPSTICK (test code = URO) Normal mg/dL NEGATIVE UA NITRITE DIPSTICK (test code = DENISE) NEGATIVE NEGATIVE UA LEUKOCYTE ESTERASE W REFLEX (test code = LEUUR) 500 Fermin/u L (3+) Fermin/uL NEGATIVE A UA WBC (test code = WBCU) >200 per HPF 0-5 A UA RBC (test code = RBCU) >200 #/HPF 0-5 UA WBC CLUMPS (test code = WBCUCL) >10 /HPF NONE A UA EPITHELIAL CELLS (test code = EPIU) None seen per HPF FEW UA BACTERIA (test code = BACU) MANY #/HPF NONE A UA MUCUS (test code = MUCU) FEW #/LPF FEW Urine Source? Clean CatchURINALYSIS [id number] 06:17:00* Test Item Value Reference Range Interpretation Comments UA COLOR (test code = COLU) ORANGE YELLOW A UA APPEARANCE (test code = APPU) TURBID CLEAR A UA GLUCOSE DIPSTICK (test code = DGLUU) NEGATIVE mg/dL NEGATIVE UA BILIRUBIN DIPSTICK (test code = BILU) NEGATIVE mg/dL NEGATIVE UA KETONE DIPSTICK (test code = KETU) NEGATIVE mg/dL NEGATIVE UA SPECIFIC GRAVITY (test code = SGU) 1.012 1.001-1.035 UA BLOOD DIPSTICK (test code = VU) 1.0 mg/dL (3+) mg/dL NEGATIVE A UA PH DIPSTICK (test code = NIDHI) 6.0 5.0-8.0 UA PROTEIN DIPSTICK (test code = PROU) 70 (1+) mg/dL NEGATIVE A UA UROBILINIOGEN DIPSTICK (test code = URO) Normal mg/dL NEGATIVE UA NITRITE DIPSTICK (test code = DENISE) NEGATIVE NEGATIVE UA LEUKOCYTE ESTERASE W REFLEX (test code = LEUUR) 500 Fermin/u L (3+) Fermin/uL NEGATIVE A UA WBC (test code = WBCU) >200 per HPF 0-5 A UA RBC (test code = RBCU) >200 #/HPF 0-5 UA WBC CLUMPS (test code = WBCUCL) >10 /HPF NONE A UA EPITHELIAL CELLS (test code = EPIU) None seen per HPF FEW UA BACTERIA (test code = BACU) MANY #/HPF NONE A UA MUCUS (test code = MUCU) FEW #/LPF FEW Urine Source? Clean Catch- XR CYSTOURETHRO [id number] 13:42:00 FAX: Ashu Carlton MD [phone] [place]: St: ADM FAX: Jaden Mcmahon [phone] Name: SADA KARIMI [facility] : 1950 Age/S: 69/F [address] [facility] Unit #: [id number] Loc: V.[address] [place] [address] Phys: Jaden Rodgers Acct: [id number] Dis Date: Status: ADM IN PHONE #: [phone] Exam Date: 03/11/2020 1330 FAX #: [phone] Reason: CYSTO EXAMS: CPT CODE: [id number] XR CYSTOURETHRO RETRO 01268 CLINICAL HISTORY: CYSTO TECHNIQUE: Intraoperative fluoroscopic images from retrograde urogram. Fluoroscopy time 18 seconds;D ose: 3.1 mGy. IMPRESSION: Left percutaneous ne phrostomy tube was removed and left ureteral stent was placed. Location: [facility] Electronically Signed by Caleb Salas MD on at 1342 Reported and signed by: Caleb Salas MD CC: Ashu Carlton MD; Jaden Rodgers M.D. Technologist: Felecia Fuentes (R) crd Date/Time/By: 03/11/2020 (1683) : By: [email or web address] Orig Print D/T: S: 03/11/2020 (2110) PAGE 1 Signed Report BASIC METABOLIC [id number] 05:57:00* Test Item Value Reference Range Interpretation Comments SODIUM (test code = NA) 143 mmol/L 136-145 N POTASSIUM (test code = K) 4.1 mmol/L 3.5-5.1 N CHLORIDE (test code = CL) 110.0 mmol/L 98-107 H CARBON DIOXIDE (test code = CO2) 27.0 mmol/L 21-32 N ANION GAP (test code = GAP) 10.1 10-20 N GLUCOSE (test code = GLU) 72 mg/dL 74-106 L BLOOD UREA NITROGEN (test code = BUN) 6 mg/dL 7-18 L GLOMERULAR FILTRATION RATE (test code = GFR) > 60 mL/min >=60 Estimated GFR by using Modified MDRD formula.Chronic kidney disease is defined as either kidney damageor GFR <60 mL/min/1.73 m2 for >3 months. CREATININE (test code = CREAT) 0.70 mg/dL 0.55-1.02 N Note change in reference range due to change in reagent. BUN/CREATININE RATIO (test code = BUN/CREA) 8.6 10-20 L CALCIUM (test code = CA) 7.6 mg/dL 8.5-10.1 L CBC W/O [id number] 05:26:00* Test Item Value Reference Range Interpretation Comments WHITE BLOOD CELL (test code = WBC) 7.6 K/mm3 4.5-12.5 N RED BLOOD CELL (test code = RBC) 3.39 mill/mm3 3.7-5.2 L HEMOGLOBIN (test code = HGB) 8.9 gram/dL 11.5-15.5 L HEMATOCRIT (test code = HCT) 30.0 % 36.0-46.0 L MEAN CELL VOLUME (test code = MCV) 88.5 fL 80-98 N MEAN CELL HGB (test code = MCH) 26.3 picogram 27.0-33.0 L MEAN CELL HGB CONCETRATION (test code = MCHC) 29.7 gram/dL 33.0-36. 0 L RED CELL DISTRIBUTION WIDTH (test code = RDW) 15.3 % 11.6-16. 2 N PLATELET COUNT (test code = PLT) 197 K/mm3 150-450 N MEAN PLATELET VOLUME (test code = MPV) 10.9 fL 6.7-11.[id number] 18:04:00* Test Item Value Reference Range Interpretation Comments FLUID SOURCE (test code = SOURCEFL) ABSCESS FLUID COLOR (test code = COLFL) PINKISH COLORLESS FLUID APPEARANCE (test code = APPFL) HAZY FLUID WBC AUTO (test code = WBCFLA) 501951 cells/uL FLUID RBC AUTO (test code = RBCFLA) 066752 cells/uL FLUID TOTAL CELLS (test code = TCFL) 360934 cells/uL >0 Fluid WBC RBC Type cells/uL cells/uL CSF (0-5) n/a Peritoneal n/a n/a Pleural n/a n/a Synovial <200 n/a CSF (0-30) n/a FLUID POLY (test code = POLYFL) 68.2 % FLUID LYMPHOCYTE (test code = LYMPHFL) 14.0 % FLUID EOSINOPHIL (test code = EOSFL) 15.0 % FLUID BASOPHIL (test code = BASOFL) 0.0 % FLUID MACROPHAGE (test code = MACFL) 2.8 % FLUID OTHER CELL (test code = OTHERFL) 0.0 % TOTAL CELLS COUNTED ON DIFF (test code = TOTCELLFL) 100 cells REVIEWED BY (test code = REVIEW) PATHOLOGIST RODRÍGUEZ SHELLEY M.D.03/10/20REVIEWED - [facility] NEPHR CATH [id number] 15:23:00 Name: SADA KARIMI [facility] : 1950 Age/S: 69 / F [facility] Unit #: [id number] Loc: [place] [address] Phys: Ashu Carlton MD Acct: [id number] Dis Date: Status: ADM IN PHONE #: [phone] Exam Date: 03/10/2020 1029 FAX #: [phone] Reason: EXAMS: CPT CODE: [id number] [facility] [place] [address] Fluoro Time: 322 DAP (Gy m2): 8.83 Air Kerma (mGy): 77 EXAM: Antegrade nephrostogram with sonographic and fluoroscopic guidance; percutaneous nephrostomy; insertion of a nephroureteral tube; INFORMATION: Sepsis; left ureteral stone; failed attempt at retrograde insertion of a ureteral stent; TECHNIQUE AND FINDINGS: Informed consent was obtained and the patient was placed prone on the procedure table. General anesthesia was initiated. The patient's skin in the left flank region was prepped and draped in the usual sterile fashion. Using sonographic guidance a 20-gauge Chiba needle was inserted into a mid calyx. Small amount of dilute contrast material was injected opacifying slightly dilated collecting system with irregular filling defects. Pus was aspirated from the needle. Using the Daily Dealy system, an 035 guidewire was inserted. A 5 Barbadian Kumpe catheter was then inserted into the proximal ureter. Contrast was injected and ir regular filling defects were seen in the ureter consistent with curette ma terial and probably also a stone. However this stone was not clearly ident ified due to other filling defects. The guidewire was then directed into t he urinary bladder which have been decompressed with a Jansen catheter. 9 Barbadian peel-away sheath was inserted followed by insertion of a secon d guidewire. Subsequently, a 10 Barbadian nephrostomy tube was inserted and c oiled with its pigtail portion in the renal pelvis. Purulent urine w as aspirated and samples were sent to the lab. A [address] was then advanced over the second guidewire and was positioned with it s tip in the urinary bladder. This catheter was flushed and was then close d. The nephrostomy tube was also flushed, was sutured to the skin and connected to a drainage bag. No apparent complications. IMPRESSION: 1. Antegrade puncture of the mildly dilated left renal colle cting system with sonographic guidance showed evidence of pyuria. A limi orquidea nephrostogram showed irregular filling defects consistent with pus within the collecting system. Mild hydronephrosis and mild hydroureter were present. 2. Successful insertion of a 10 Barbadian nephrostomy t ube. 3. Successful insertion of a temporary 5 Barbadian nephroureteral internal/external tube. Fluoroscopy Time: 322 sec PAGE 1 Signed Report (CONTINUED) Name: SADA MAYFIELD [facility] : [birth year] Age/S: 69 / F [address] Unit #: [id number] Loc: [place] [address] Phys: Ashu Carlton Acct: [id number] Dis Date: Status: ADM IN PHONE #: [phone] Exam Date: 03/10/2020 1029 FAX #: [phone] R dale: EXAMS: CPT CODE: [id number] [facility] [place] [address] Fluoro Time: 322 DAP (Gy m2): 8.83 Air Kerma (mGy): 77 <Continued> CAK : 77 mGy DAP : 8830 mGy sq cm Location code: [facility] at 1523 Reported and signed by: Gregorio Hartman M.D. CC: Ashu Carlton MD Technologist: Nicolle Fernandez Trnflb Date/Time: 03/10/2020 (1523) [email or web address] Orig Print D/T: S: 03/10/2020 (1526) PAGE 2 Signed Report - [facility] NEPH [id number] 15:23:00 Name: SADA KARIMI [facility] : 1950 Age/S: 69 / F [address] [facility] Unit #: [id number] Loc: [place] [address] Phys: Ashu Carlton MD Acct: [id number] Dis Date: Status: ADM IN PHONE #: [phone] Exam Date: 03/10/2020 1029 FAX #: [phone] Reason: EXAMS: CPT CODE: [id number] [facility] NEPH CATH [address] Fluoro Time: 322 DAP (Gy m2): 8.83 Air Kerma (mGy): 77 EXAM: Antegrade nephrostogram with sonographic and fluoroscopic guidance; percutaneous nephrostomy; insertion of a nephroureteral tube; INFORMATION: Sepsis; left ureteral stone; failed attempt at retrograde insertion of a ureteral stent; TECHNIQUE AND FINDINGS: Informed consent was obtained and the patient was placed prone on the procedure table. General anesthesia was initiated. The patient's skin in the left flank region was prepped and draped in the usual sterile fashion. Using sonographic guidance a 20-gauge Chiba needle was inserted into a mid calyx. Small amount of dilute contrast material was injected opacifying slightly dilated collecting system with irregular filling defects. Pus was aspirated from the needle. Using the Daily Dealy system, an 035 guidewire was inserted. A 5 Barbadian Kumpe catheter was then inserted into the proximal ureter. Contrast was injected and irregular filling defects were seen in the ureter consistent with curette material and probably also a stone. However this stone was not clearly identified due to other filling defects. The guidewire was then directed into the urinary bladder which have been decompressed with a Jansen catheter. 9 Barbadian peel-away sheath was inserted followed by insertion of a second guidewire. Subsequently, a 10 Barbadian nephrostomy tube was inserted and c oiled with its pigtail portion in the renal pelvis. Purulent urine w as aspirated and samples were sent to the lab. A [address] was then advanced over the second guidewire and was positioned with it s tip in the urinary bladder. This catheter was flushed and was then close d. The nephrostomy tube was also flushed, was sutured to the skin and connected to a drainage bag. No apparent complications. IMPRESSION: 1. Antegrade puncture of the mildly dilated left renal colle cting system with sonographic guidance showed evidence of pyuria. A limi orquidea nephrostogram showed irregular filling defects consistent with pus within the collecting system. Mild hydronephrosis and mild hydroureter were present. 2. Successful insertion of a 10 Barbadian nephrostomy t ube. 3. Successful insertion of a temporary 5 Barbadian nephroureteral internal/external tube. Fluoroscopy Time: 322 sec PAGE 1 Signed Report (CONTINUED) Name: SADA MAYFIELD [facility] : [birth year] Age/S: 69 / F [address] [facility] Unit #: [id number] Loc: [place] [address] Phys: Ashu Carlton Acct: [id number] Dis Date: Status: ADM IN PHONE #: Exam Date: 03/10/2020 1029 FAX #: [phone] R dale: EXAMS: CPT CODE: [id number] [facility] NEPH CATH [address] Fluoro Time: 322 DAP (Gy m2): 8.83 Air Kerma (mGy): 77 <Continued> CAK : 77 mGy DAP : 8830 mGy sq cm Location code: [facility] at 1523 Reported and signed by: Gregorio Hartman M.D. CC: Ashu Carlton MD Technologist: Nicolle Fernandez Trnflb Date/Time: 03/10/2020 (1522) [email or web address] Orig Print D/T: S: 03/10/2020 (2716) PAGE 2 Signed Report - [facility] NEPH NEW [id number] 15:23:00 Name: SADA KARIMI [facility] : 1950 Age/S: 69 / F [address] [facility] Unit #: [id number] Loc: [place] [address] Phys: Ashu Carlton MD Acct: [id number] Dis Date: Status: ADM IN PHONE #: [phone] Exam Date: 03/10/2020 1029 FAX #: [phone] Reason: EXAMS: CPT CODE: [id number] [facility] NEPH NEW ACCESS [address] Fluoro Time: 322 DAP (Gy m2): 8.83 Air Kerma (mGy): 77 EXAM: Antegrade nephrostogram with sonographic and fluoroscopic guidance; percutaneous nephrostomy; insertion of a nephroureteral tube; INFORMATION: Sepsis; left ureteral stone; failed attempt at retrograde insertion of a ureteral stent; TECHNIQUE AND FINDINGS: Informed consent was obtained and the patient was placed prone on the procedure table. General anesthesia was initiated. The patient's skin in the left flank region was prepped and draped in the usual sterile fashion. Using sonographic guidance a 20-gauge Chiba needle was inserted into a mid calyx. Small amount of dilute contrast material was injected opacifying slightly dilated collecting system with irregular filling defects. Pus was aspirated from the needle. Using the Daily Dealy system, an 035 guidewire was inserted. A 5 Barbadian Kumpe catheter was then inserted into the proximal ureter. Contrast was injected and irregular filling defects were seen in the ureter consistent with curette material and probably also a stone. However this stone was not clearly identified due to other filling defects. The guidewire was then directed into the urinary bladder which have been decompressed with a Jansen catheter. 9 Barbadian peel-away sheath was inserted followed by insertion of a second guidewire. Subsequently, a 10 Barbadian nephrostomy tube was inserted and c oiled with its pigtail portion in the renal pelvis. Purulent urine w as aspirated and samples were sent to the lab. A [address] [place] [address] was then advanced over the second guidewire and was positioned with it s tip in the urinary bladder. This catheter was flushed and was then close d. The nephrostomy tube was also flushed, was sutured to the skin and connected to a drainage bag. No apparent complications. IMPRESSION: 1. Antegrade puncture of the mildly dilated left renal colle cting system with sonographic guidance showed evidence of pyuria. A limi orquidea nephrostogram showed irregular filling defects consistent with pus within the collecting system. Mild hydronephrosis and mild hydroureter were present. 2. Successful insertion of a 10 Barbadian nephrostomy t ube. 3. Successful insertion of a temporary 5 Barbadian nephroureteral internal/external tube. Fluoroscopy Time: 322 sec PAGE 1 Signed Report (CONTINUED) Name: INGRID ALEJASADA ALTA [facility] : 951 Age/S: 69 / F [address] [facility] Unit #: [id number] Loc: [place] [address] Phys: Ashu Carlton Acct: [id number] Dis Date: Status: ADM IN PHONE #: Exam Date: 03/10/2020 1025 FAX #: [phone] R dale: EXAMS: CPT CODE: [id number] INJ NEPH NEW ACCESS 23322 Fluoro Time: 322 DAP (Gy m2): 8.83 Air Kerma (mGy): 77 <Continued> CAK : 77 mGy DAP : 8830 mGy sq cm Location code: [facility] at 1523 Reported and signed by: Gregorio Hartman M.D. CC: Ashu Carlton MD Technologist: Nicolle Fernandez Trnflb Date/Time: 03/10/2020 (1522) [email or web address] Orig Print D/T: S: 03/10/2020 (1526) PAGE 2 Signed Report - USG NDL PLACEMENT (Bxg/Asp) 2020-03-10 15:23:00 Name: SADA KARIMI [facility] : 1950 Age/S: 69 / F [address] [facility] Unit #: [id number] Loc: [place] [address] Phys: Gregorio Hartman MD Acct: [id number] Dis Date: Status: ADM IN PHONE #: [phone] Exam Date: 03/10/2020 1021 FAX #: [phone] Reason: KIDNEY STONE EXAMS: CPT CODE: [id number] USG NDL PLACEMENT (Bxg/Asp) 60486 EXAM: Antegrade nephrostogram with sonographic and fluoroscopic guidance; percutaneous nephrostomy; insertion of a nephroureteral tube; INFORMATION: Sepsis; left ureteral stone; failed attempt at retrograde insertion of a ureteral stent; TECHNIQUE AND FINDINGS: Informed consent was obtained and the patient was placed prone on the procedure table. General anesthesia was initiated. The patient's skin in the left flank region was prepped and draped in the usual sterile fashion. Using sonographic guidance a 20-gauge Chiba needle was inserted into a mid calyx. Small amount of dilute contrast material was injected opacifying slightly dilated collecting system with irregular filling defects. Pus was aspirated from the needle. Using the Daily Dealy system, an 035 guidewire was inserted. A 5 Barbadian Kumpe catheter was then inserted into the proximal ureter. Contrast was injected and irregular filling defects were seen in the ureter consistent with curette material and probably also a stone. However this stone was not clearly identified due to other filling defects. The guidewire was then directed into the urinary bladder which have been decompressed with a Jansen catheter. 9 Barbadian peel-away sheath was inserted followed by insertion of a second guidewire. Subsequently, a 10 Barbadian nephrostomy tube was inserted and coiled with its pigtail portion in the renal pelvis. Purulent urine was aspirated and samples were sent to the lab. A 5 Barbadian Omni Flush catheter was then advanced over the second guidewire and was positioned with its tip in the urinary bladder. This catheter was flushed and was then closed. The nephrostomy tube was also flushed, was sutured to the skin and connected to a drainage bag. No apparent complications. IMPRESSION: 1. Antegrade puncture of the mildly dilated lef t renal collecting system with sonographic guidance showed evidence of p yuria. A limited nephrostogram showed irregular filling defects consiste nt with pus within the collecting system. Mild hydronephrosis and mild h ydroureter were present. 2. Successful insertion of a 10 Barbadian nephrostomy tube. 3. Successful insertion of a temporary 5 Barbadian nephro ureteral internal/external tube. PAGE 1 Signed Report (CONTINUED) Name: SADA KARIMI [facility] : 1950 Age/S: 69 / F [address] [facility] Unit #: [id number] Loc: [place] [address] Phys: Gregorio Hartman MD Acct: [id number] Dis Date: Status: ADM IN PHONE #: [phone] Exam Date: 1021 FAX #: [phone] Reason: KIDNEY STONE EXAMS: CPT CODE: [id number] USG NDL PLACEMENT (Bxg/Asp) 67080 <Continued> Fluoroscopy Time: 322 sec CAK : 77 mGy DAP : 8830 mGy sq cm Location code: [facility] at 1523 Reported and signed by: Gregorio Hartman M.D. CC: Ashu Carlton MD Technologist: SUELLEN HUDDLESTON RT(R),RDMS Trnflb Date/Time: 03/10/2020 (1523) [email or web address] Orig Print D/T: S: 03/10/2020 (1526) Probe: PAGE 2 Signed Report BODY FLUID CELL [id number] 13:11:00 * Test Item Value Reference Range Interpretation Comments FLUID SOURCE (test code = SOURCEFL) ABSCESS FLUID COLOR (test code = COLFL) PINKISH COLORLESS FLUID APPEARANCE (test code = APPFL) HAZY FLUID WBC AUTO (test code = WBCFLA) 721079 cells/uL FLUID RBC AUTO (test code = RBCFLA) 240800 cells/uL FLUID TOTAL CELLS (test code = TCFL) 089117 cells/uL >0 Fluid WBC RBC Type cells/uL cells/uL CSF (0-5) n/a Peritoneal n/a n/a Pleural n/a n/a Synovial <200 n/a CSF (0-30) n/a FLUID POLY (test code = POLYFL) 68.2 % FLUID LYMPHOCYTE (test code = LYMPHFL) 14.0 % FLUID EOSINOPHIL (test code = EOSFL) 15.0 % FLUID BASOPHIL (test code = BASOFL) 0.0 % FLUID MACROPHAGE (test code = MACFL) 2.8 % FLUID OTHER CELL (test code = OTHERFL) 0.0 % TOTAL CELLS COUNTED ON DIFF (test code = TOTCELLFL) 100 cells REVIEWED BY (test code = REVIEW) PATHOLOGIST BODY FLUID CELL [id number] 13:00:00* Test Item Value Reference Range Interpretation Comments FLUID SOURCE (test code = SOURCEFL) FLUID COLOR (test code = COLFL) COLORLESS FLUID APPEARANCE (test code = APPFL) FLUID WBC (test code = WBCFL) per mm3 0-150 FLUID WBC AUTO (test code = WBCFLA) 682242 cells/uL FLUID RBC (test code = RBCFL) per mm3 0-50 FLUID RBC AUTO (test code = RBCFLA) 792971 cells/uL FLUID TOTAL CELLS (test code = TCFL) 100095 cells/uL >0 Fluid WBC RBC Type cells/uL cells/uL CSF (0-5) n/a Peritoneal n/a n/a Pleural n/a n/a Synovial <200 n/a CSF (0-30) n/a FLUID POLY (test code = POLYFL) 68.2 % FLUID LYMPHOCYTE (test code = LYMPHFL) 14.0 % FLUID EOSINOPHIL (test code = EOSFL) 15.0 % FLUID BASOPHIL (test code = BASOFL) 0.0 % FLUID MACROPHAGE (test code = MACFL) 2.8 % FLUID OTHER CELL (test code = OTHERFL) 0.0 % TOTAL CELLS COUNTED ON DIFF (test code = TOTCELLFL) cells REVIEWED BY (test code = REVIEW) PATHOLOGIST BODY FLUID CELL [id number] 10:57:00* Test Item Value Reference Range Interpretation Comments FLUID SOURCE (test code = SOURCEFL) FLUID COLOR (test code = COLFL) COLORLESS FLUID APPEARANCE (test code = APPFL) FLUID WBC (test code = WBCFL) per mm3 0-150 FLUID WBC AUTO (test code = WBCFLA) 103601 cells/uL FLUID RBC (test code = RBCFL) per mm3 0-50 FLUID RBC AUTO (test code = RBCFLA) 098214 cells/uL FLUID TOTAL CELLS (test code = TCFL) 234904 cells/uL >0 Fluid WBC RBC Type cells/uL cells/uL CSF (0-5) n/a Peritoneal n/a n/a Pleural n/a n/a Synovial <200 n/a CSF (0-30) n/a TOTAL CELLS COUNTED ON DIFF (test code = TOTCELLFL) cells REVIEWED BY (test code = REVIEW) PATHOLOGIST CBC W/MANUAL [id number] 06:28:00* Test Item Value Reference Range Interpretation Comments WHITE BLOOD CELL (test code = WBC) 7.2 K/mm3 4.5-12.5 N RED BLOOD CELL (test code = RBC) 3.40 mill/mm3 3.7-5.2 L HEMOGLOBIN (test code = HGB) 8.8 gram/dL 11.5-15.5 L HEMATOCRIT (test code = HCT) 29.9 % 36.0-46.0 L MEAN CELL VOLUME (test code = MCV) 87.9 fL 80-98 N MEAN CELL HGB (test code = MCH) 25.9 picogram 27.0-33.0 L MEAN CELL HGB CONCETRATION (test code = MCHC) 29.4 gram/dL 33.0-36. 0 L RED CELL DISTRIBUTION WIDTH (test code = RDW) 15.6 % 11.6-16. 2 N RED CELL DISTRIBUTION WIDTH SD (test code = RDW-SD) 48.0 fL 37 .0-51.0 N PLATELET COUNT (test code = PLT) 216 K/mm3 150-450 N MEAN PLATELET VOLUME (test code = MPV) 10.6 fL 6.7-11.0 N IMMATURE GRANULOCYTE % (test code = IG%) 6.4 % 0.0-5.0 H "The appearance of immature granulocytes (myelocytes,pro-myelocytes, meta-myelocytes) in the peripheral blood ofnon- individuals can indicate a response toinfection, inflammation, or other stimulus to the bonemarrow" NUCLEATED RBC % (test code = NRBC%) 0.0 % 0-0 N NEUTROPHIL # (test code = NT#) 5.05 K/mm3 1.8-7.7 N IMMATURE GRANULOCYTE # (test code = IG#) 0.46 x10 3/uL 0-0.03 H LYMPHOCYTE # (test code = LY#) 1.09 K/mm3 1.0-5.0 N MONOCYTE # (test code = MO#) 0.33 K/mm3 0-0.8 N EOSINOPHIL # (test code = EO#) 0.24 K/mm3 0.0-0.5 N BASOPHIL # (test code = BA#) 0.05 K/mm3 0.0-0.2 N NUCLEATED RBC # (test code = NRBC#) 0.00 K/mm3 0.0-0.1 N MANUAL DIFF REQUIRED (test code = MDIFF) YES STAIN ACCEPTABILITY (test code = STN ACCEPTABLE) STAIN ACCEPTABLE TOTAL CELLS COUNTED (test code = TCC) 115 #CELLS SEGMENTED NEUTROPHILS (test code = SEG) 74.8 % 39-69 H BAND NEUTROPHIL (test code = BAND) 7.8 % 0-10 N LYMPHOCYTE (test code = LYMPH) 12.2 % 25-55 L REACTIVE LYMPH (test code = RELYMPH) 0 % MONOCYTE (test code = MON) 0.9 % 0-10 N EOSINOPHIL (test code = EOS) 0 % 0.0-5.0 N BASOPHIL (test code = BASO) 0.8 % 0-1.0 N METAMYELOCYTE (test code = META) 0.9 % 0-0 H MYELOCYTE (test code = MYELO) 2.6 % 0.0-0.0 H PROMYELOCYTE (test code = PROM) 0 % 0-0 N POLYCHROMASIA (test code = POLC) 1+ HYPOCHROMIA (test code = HYPO) 1+ ANISOCYTOSIS (test code = ANISO) 1+ MICROCYTOSIS (test code = MICR) 1+ PLATELET ESTIMATE (test code = PLTEST) ADEQUATE PLATELET MORPHOLOGY (test code = PLTMORPH) NORMAL IMMATURE FORMS (test code = IMMAT) 0 % 0-0 N PROTHROMBIN [id number] 05:07:00* Test Item Value Reference Range Interpretation Comments PROTHROMBIN TIME PATIENT (test code = PTP) 12.7 seconds 9.0-14.0 N INTERNATIONAL NORMAL RATIO (test code = INR) 1.1 0.8-1.2 N The therapeutic range for oral anticoagulant therapy formost indications is an international normalized ratio (INR)of between 2.0 and 3.0. The recommended therapeutic INRrange for various clinical situations is listed below: Clinical Situation INR range Pulmonary e mbolism treatment (2.0-3.0)Venous thrombosis treatmentVenous thrombosis prophylaxis (high risk surgery)Prevention of systemic embolism from: Acute myocardial infarction Valvular heart disease Atrial fibrillation Mechanical prosthetic heart valves (2.5-3.5) IS PATIENT ON ANTICOAGULANTS? YLIST ANTICOAGULANTS ASPIRIN HEPARINSPECIM EN COMMENTS: FOR PROCEDURE TOMORROW.SPECIMEN COMMENTS: FPR PROCEDURE TOMORROW. THROMBOPLASTIN TIME [id number] 05:07:00* Test Item Value Reference Range Interpretation Comments THROMBOPLASTIN TIME PARTIAL (test code = PTT) 44.6 seconds 25.0-36. 5 H IS PATIENT ON ANTICOAGULANTS? YLIST ANTICOAGULANTS ASPIRIN HEPARINSPECIM EN COMMENTS: FOR PROCEDURE TOMORROW.SPECIMEN COMMENTS: FPR PROCEDURE TOMORROW. CBC W/MANUAL [id number] 05:00:00* Test Item Value Reference Range Interpretation Comments WHITE BLOOD CELL (test code = WBC) 7.2 K/mm3 4.5-12.5 N RED BLOOD CELL (test code = RBC) 3.40 mill/mm3 3.7-5.2 L HEMOGLOBIN (test code = HGB) 8.8 gram/dL 11.5-15.5 L HEMATOCRIT (test code = HCT) 29.9 % 36.0-46.0 L MEAN CELL VOLUME (test code = MCV) 87.9 fL 80-98 N MEAN CELL HGB (test code = MCH) 25.9 picogram 27.0-33.0 L MEAN CELL HGB CONCETRATION (test code = MCHC) 29.4 gram/dL 33.0-36. 0 L RED CELL DISTRIBUTION WIDTH (test code = RDW) 15.6 % 11.6-16. 2 N RED CELL DISTRIBUTION WIDTH SD (test code = RDW-SD) 48.0 fL 37 .0-51.0 N PLATELET COUNT (test code = PLT) 216 K/mm3 150-450 N MEAN PLATELET VOLUME (test code = MPV) 10.6 fL 6.7-11.0 N IMMATURE GRANULOCYTE % (test code = IG%) 6.4 % 0.0-5.0 H "The appearance of immature granulocytes (myelocytes,pro-myelocytes, meta-myelocytes) in the peripheral blood ofnon- individuals can indicate a response toinfection, inflammation, or other stimulus to the bonemarrow" NUCLEATED RBC % (test code = NRBC%) 0.0 % 0-0 N NEUTROPHIL # (test code = NT#) 5.05 K/mm3 1.8-7.7 N IMMATURE GRANULOCYTE # (test code = IG#) 0.46 x10 3/uL 0-0.03 H LYMPHOCYTE # (test code = LY#) 1.09 K/mm3 1.0-5.0 N MONOCYTE # (test code = MO#) 0.33 K/mm3 0-0.8 N EOSINOPHIL # (test code = EO#) 0.24 K/mm3 0.0-0.5 N BASOPHIL # (test code = BA#) 0.05 K/mm3 0.0-0.2 N NUCLEATED RBC # (test code = NRBC#) 0.00 K/mm3 0.0-0.1 N MANUAL DIFF REQUIRED (test code = MDIFF) YES STAIN ACCEPTABILITY (test code = STN ACCEPTABLE) TOTAL CELLS COUNTED (test code = TCC) #CELLS SEGMENTED NEUTROPHILS (test code = SEG) % 39-69 LYMPHOCYTE (test code = LYMPH) % 25-55 MONOCYTE (test code = MON) % 0-10 EOSINOPHIL (test code = EOS) % 0.0-5.0 CABOT RINGS (test code = CAB) MORPHOLOGY COMMENT (test code = MOC) PLATELET ESTIMATE (test code = PLTEST) PLATELET MORPHOLOGY (test code = PLTMORPH) CBC W/MANUAL [id number] 05:00:00* Test Item Value Reference Range Interpretation Comments WHITE BLOOD CELL (test code = WBC) 7.2 K/mm3 4.5-12.5 N RED BLOOD CELL (test code = RBC) 3.40 mill/mm3 3.7-5.2 L HEMOGLOBIN (test code = HGB) 8.8 gram/dL 11.5-15.5 L HEMATOCRIT (test code = HCT) 29.9 % 36.0-46.0 L MEAN CELL VOLUME (test code = MCV) 87.9 fL 80-98 N MEAN CELL HGB (test code = MCH) 25.9 picogram 27.0-33.0 L MEAN CELL HGB CONCETRATION (test code = MCHC) 29.4 gram/dL 33.0-36. 0 L RED CELL DISTRIBUTION WIDTH (test code = RDW) 15.6 % 11.6-16. 2 N RED CELL DISTRIBUTION WIDTH SD (test code = RDW-SD) 48.0 fL 37 .0-51.0 N PLATELET COUNT (test code = PLT) 216 K/mm3 150-450 N MEAN PLATELET VOLUME (test code = MPV) 10.6 fL 6.7-11.0 N IMMATURE GRANULOCYTE % (test code = IG%) 6.4 % 0.0-5.0 H "The appearance of immature granulocytes (myelocytes,pro-myelocytes, meta-myelocytes) in the peripheral blood ofnon- individuals can indicate a response toinfection, inflammation, or other stimulus to the bonemarrow" NUCLEATED RBC % (test code = NRBC%) 0.0 % 0-0 N NEUTROPHIL # (test code = NT#) 5.05 K/mm3 1.8-7.7 N IMMATURE GRANULOCYTE # (test code = IG#) 0.46 x10 3/uL 0-0.03 H LYMPHOCYTE # (test code = LY#) 1.09 K/mm3 1.0-5.0 N MONOCYTE # (test code = MO#) 0.33 K/mm3 0-0.8 N EOSINOPHIL # (test code = EO#) 0.24 K/mm3 0.0-0.5 N BASOPHIL # (test code = BA#) 0.05 K/mm3 0.0-0.2 N NUCLEATED RBC # (test code = NRBC#) 0.00 K/mm3 0.0-0.1 N MANUAL DIFF REQUIRED (test code = MDIFF) YES STAIN ACCEPTABILITY (test code = STN ACCEPTABLE) TOTAL CELLS COUNTED (test code = TCC) #CELLS SEGMENTED NEUTROPHILS (test code = SEG) % 39-69 LYMPHOCYTE (test code = LYMPH) % 25-55 MONOCYTE (test code = MON) % 0-10 EOSINOPHIL (test code = EOS) % 0.0-5.0 MORPHOLOGY COMMENT (test code = MOC) PLATELET ESTIMATE (test code = PLTEST) PLATELET MORPHOLOGY (test code = PLTMORPH) CBC W/MANUAL [id number] 05:00:00* Test Item Value Reference Range Interpretation Comments WHITE BLOOD CELL (test code = WBC) 7.2 K/mm3 4.5-12.5 N RED BLOOD CELL (test code = RBC) 3.40 mill/mm3 3.7-5.2 L HEMOGLOBIN (test code = HGB) 8.8 gram/dL 11.5-15.5 L HEMATOCRIT (test code = HCT) 29.9 % 36.0-46.0 L MEAN CELL VOLUME (test code = MCV) 87.9 fL 80-98 N MEAN CELL HGB (test code = MCH) 25.9 picogram 27.0-33.0 L MEAN CELL HGB CONCETRATION (test code = MCHC) 29.4 gram/dL 33.0-36. 0 L RED CELL DISTRIBUTION WIDTH (test code = RDW) 15.6 % 11.6-16. 2 N RED CELL DISTRIBUTION WIDTH SD (test code = RDW-SD) 48.0 fL 37 .0-51.0 N PLATELET COUNT (test code = PLT) 216 K/mm3 150-450 N MEAN PLATELET VOLUME (test code = MPV) 10.6 fL 6.7-11.0 N IMMATURE GRANULOCYTE % (test code = IG%) 6.4 % 0.0-5.0 H "The appearance of immature granulocytes (myelocytes,pro-myelocytes, meta-myelocytes) in the peripheral blood ofnon- individuals can indicate a response toinfection, inflammation, or other stimulus to the bonemarrow" NUCLEATED RBC % (test code = NRBC%) 0.0 % 0-0 N NEUTROPHIL # (test code = NT#) 5.05 K/mm3 1.8-7.7 N IMMATURE GRANULOCYTE # (test code = IG#) 0.46 x10 3/uL 0-0.03 H LYMPHOCYTE # (test code = LY#) 1.09 K/mm3 1.0-5.0 N MONOCYTE # (test code = MO#) 0.33 K/mm3 0-0.8 N EOSINOPHIL # (test code = EO#) 0.24 K/mm3 0.0-0.5 N BASOPHIL # (test code = BA#) 0.05 K/mm3 0.0-0.2 N NUCLEATED RBC # (test code = NRBC#) 0.00 K/mm3 0.0-0.1 N MANUAL DIFF REQUIRED (test code = MDIFF) YES STAIN ACCEPTABILITY (test code = STN ACCEPTABLE) TOTAL CELLS COUNTED (test code = TCC) #CELLS SEGMENTED NEUTROPHILS (test code = SEG) % 39-69 LYMPHOCYTE (test code = LYMPH) % 25-55 MONOCYTE (test code = MON) % 0-10 MORPHOLOGY COMMENT (test code = MOC) PLATELET ESTIMATE (test code = PLTEST) PLATELET MORPHOLOGY (test code = PLTMORPH) CBC W/MANUAL [id number] 04:59:00* Test Item Value Reference Range Interpretation Comments WHITE BLOOD CELL (test code = WBC) 7.2 K/mm3 4.5-12.5 N RED BLOOD CELL (test code = RBC) 3.40 mill/mm3 3.7-5.2 L HEMOGLOBIN (test code = HGB) 8.8 gram/dL 11.5-15.5 L HEMATOCRIT (test code = HCT) 29.9 % 36.0-46.0 L MEAN CELL VOLUME (test code = MCV) 87.9 fL 80-98 N MEAN CELL HGB (test code = MCH) 25.9 picogram 27.0-33.0 L MEAN CELL HGB CONCETRATION (test code = MCHC) 29.4 gram/dL 33.0-36. 0 L RED CELL DISTRIBUTION WIDTH (test code = RDW) 15.6 % 11.6-16. 2 N RED CELL DISTRIBUTION WIDTH SD (test code = RDW-SD) 48.0 fL 37 .0-51.0 N PLATELET COUNT (test code = PLT) 216 K/mm3 150-450 N MEAN PLATELET VOLUME (test code = MPV) 10.6 fL 6.7-11.0 N IMMATURE GRANULOCYTE % (test code = IG%) 6.4 % 0.0-5.0 H "The appearance of immature granulocytes (myelocytes,pro-myelocytes, meta-myelocytes) in the peripheral blood ofnon- individuals can indicate a response toinfection, inflammation, or other stimulus to the bonemarrow" NUCLEATED RBC % (test code = NRBC%) 0.0 % 0-0 N NEUTROPHIL # (test code = NT#) 5.05 K/mm3 1.8-7.7 N IMMATURE GRANULOCYTE # (test code = IG#) 0.46 x10 3/uL 0-0.03 H LYMPHOCYTE # (test code = LY#) 1.09 K/mm3 1.0-5.0 N MONOCYTE # (test code = MO#) 0.33 K/mm3 0-0.8 N EOSINOPHIL # (test code = EO#) 0.24 K/mm3 0.0-0.5 N BASOPHIL # (test code = BA#) 0.05 K/mm3 0.0-0.2 N NUCLEATED RBC # (test code = NRBC#) 0.00 K/mm3 0.0-0.1 N MANUAL DIFF REQUIRED (test code = MDIFF) YES STAIN ACCEPTABILITY (test code = STN ACCEPTABLE) TOTAL CELLS COUNTED (test code = TCC) #CELLS SEGMENTED NEUTROPHILS (test code = SEG) % 39-69 LYMPHOCYTE (test code = LYMPH) % 25-55 MONOCYTE (test code = MON) % 0-10 EOSINOPHIL (test code = EOS) % 0.0-5.0 CABOT RINGS (test code = CAB) MORPHOLOGY COMMENT (test code = MOC) PLATELET ESTIMATE (test code = PLTEST) PLATELET MORPHOLOGY (test code = PLTMORPH) CBC W/MANUAL [id number] 04:59:00* Test Item Value Reference Range Interpretation Comments WHITE BLOOD CELL (test code = WBC) 7.2 K/mm3 4.5-12.5 N RED BLOOD CELL (test code = RBC) 3.40 mill/mm3 3.7-5.2 L HEMOGLOBIN (test code = HGB) 8.8 gram/dL 11.5-15.5 L HEMATOCRIT (test code = HCT) 29.9 % 36.0-46.0 L MEAN CELL VOLUME (test code = MCV) 87.9 fL 80-98 N MEAN CELL HGB (test code = MCH) 25.9 picogram 27.0-33.0 L MEAN CELL HGB CONCETRATION (test code = MCHC) 29.4 gram/dL 33.0-36. 0 L RED CELL DISTRIBUTION WIDTH (test code = RDW) 15.6 % 11.6-16. 2 N RED CELL DISTRIBUTION WIDTH SD (test code = RDW-SD) 48.0 fL 37 .0-51.0 N PLATELET COUNT (test code = PLT) 216 K/mm3 150-450 N MEAN PLATELET VOLUME (test code = MPV) 10.6 fL 6.7-11.0 N IMMATURE GRANULOCYTE % (test code = IG%) 6.4 % 0.0-5.0 H "The appearance of immature granulocytes (myelocytes,pro-myelocytes, meta-myelocytes) in the peripheral blood ofnon- individuals can indicate a response toinfection, inflammation, or other stimulus to the bonemarrow" NUCLEATED RBC % (test code = NRBC%) 0.0 % 0-0 N NEUTROPHIL # (test code = NT#) 5.05 K/mm3 1.8-7.7 N IMMATURE GRANULOCYTE # (test code = IG#) 0.46 x10 3/uL 0-0.03 H LYMPHOCYTE # (test code = LY#) 1.09 K/mm3 1.0-5.0 N MONOCYTE # (test code = MO#) 0.33 K/mm3 0-0.8 N EOSINOPHIL # (test code = EO#) 0.24 K/mm3 0.0-0.5 N BASOPHIL # (test code = BA#) 0.05 K/mm3 0.0-0.2 N NUCLEATED RBC # (test code = NRBC#) 0.00 K/mm3 0.0-0.1 N MANUAL DIFF REQUIRED (test code = MDIFF) YES STAIN ACCEPTABILITY (test code = STN ACCEPTABLE) TOTAL CELLS COUNTED (test code = TCC) #CELLS SEGMENTED NEUTROPHILS (test code = SEG) % 39-69 LYMPHOCYTE (test code = LYMPH) % 25-55 MONOCYTE (test code = MON) % 0-10 EOSINOPHIL (test code = EOS) % 0.0-5.0 CABOT RINGS (test code = CAB) MORPHOLOGY COMMENT (test code = MOC) PLATELET ESTIMATE (test code = PLTEST) PLATELET MORPHOLOGY (test code = PLTMORPH) BASIC METABOLIC [id number] 04:56:00* Test Item Value Reference Range Interpretation Comments SODIUM (test code = NA) 146 mmol/L 136-145 H POTASSIUM (test code = K) 3.3 mmol/L 3.5-5.1 L CHLORIDE (test code = CL) 114.0 mmol/L 98-107 H CARBON DIOXIDE (test code = CO2) 26.0 mmol/L 21-32 N ANION GAP (test code = GAP) 9.3 10-20 L GLUCOSE (test code = GLU) 78 mg/dL 74-106 N BLOOD UREA NITROGEN (test code = BUN) 8 mg/dL 7-18 N GLOMERULAR FILTRATION RATE (test code = GFR) > 60 mL/min >=60 Estimated GFR by using Modified MDRD formula.Chronic kidney disease is defined as either kidney damageor GFR <60 mL/min/1.73 m2 for >3 months. CREATININE (test code = CREAT) 0.80 mg/dL 0.55-1.02 N Note change in reference range due to change in reagent. BUN/CREATININE RATIO (test code = BUN/CREA) 10.0 10-20 N CALCIUM (test code = CA) 7.9 mg/dL 8.5-10.1 L BASIC METABOLIC [id number] 04:49:00* Test Item Value Reference Range Interpretation Comments SODIUM (test code = NA) 146 mmol/L 136-145 H POTASSIUM (test code = K) 3.3 mmol/L 3.5-5.1 L CHLORIDE (test code = CL) 114.0 mmol/L 98-107 H CARBON DIOXIDE (test code = CO2) mmol/L 21-32 ANION GAP (test code = GAP) 10-20 GLUCOSE (test code = GLU) mg/dL 74-106 BLOOD UREA NITROGEN (test code = BUN) mg/dL 7-18 GLOMERULAR FILTRATION RATE (test code = GFR) mL/min >=60 CREATININE (test code = CREAT) mg/dL 0.55-1.02 BUN/CREATININE RATIO (test code = BUN/CREA) 10-20 CALCIUM (test code = CA) mg/dL 8.5-10.1 BASIC METABOLIC [id number] 05:09:00* Test Item Value Reference Range Interpretation Comments SODIUM (test code = NA) 145 mmol/L 136-145 N POTASSIUM (test code = K) 4.2 mmol/L 3.5-5.1 N CHLORIDE (test code = CL) 115.0 mmol/L 98-107 H CARBON DIOXIDE (test code = CO2) 22.0 mmol/L 21-32 N ANION GAP (test code = GAP) 12.2 10-20 N GLUCOSE (test code = GLU) 82 mg/dL 74-106 N BLOOD UREA NITROGEN (test code = BUN) 11 mg/dL 7-18 N GLOMERULAR FILTRATION RATE (test code = GFR) > 60 mL/min >=60 Estimated GFR by using Modified MDRD formula.Chronic kidney disease is defined as either kidney damageor GFR <60 mL/min/1.73 m2 for >3 months. CREATININE (test code = CREAT) 0.90 mg/dL 0.55-1.02 N Note change in reference range due to change in reagent. BUN/CREATININE RATIO (test code = BUN/CREA) 12.2 10-20 N CALCIUM (test code = CA) 7.1 mg/dL 8.5-10.1 L BASIC METABOLIC [id number] 05:05:00* Test Item Value Reference Range Interpretation Comments SODIUM (test code = NA) 145 mmol/L 136-145 N POTASSIUM (test code = K) 4.2 mmol/L 3.5-5.1 N CHLORIDE (test code = CL) 115.0 mmol/L 98-107 H CARBON DIOXIDE (test code = CO2) mmol/L 21-32 ANION GAP (test code = GAP) 10-20 GLUCOSE (test code = GLU) mg/dL 74-106 BLOOD UREA NITROGEN (test code = BUN) mg/dL 7-18 GLOMERULAR FILTRATION RATE (test code = GFR) mL/min >=60 CREATININE (test code = CREAT) mg/dL 0.55-1.02 BUN/CREATININE RATIO (test code = BUN/CREA) 10-20 CALCIUM (test code = CA) 7.1 mg/dL 8.5-10.1 L BASIC METABOLIC [id number] 11:48:00* Test Item Value Reference Range Interpretation Comments SODIUM (test code = NA) 147 mmol/L 136-145 H POTASSIUM (test code = K) 4.5 mmol/L 3.5-5.1 N CHLORIDE (test code = CL) 113.0 mmol/L 98-107 H CARBON DIOXIDE (test code = CO2) 26.0 mmol/L 21-32 N ANION GAP (test code = GAP) 12.5 10-20 N GLUCOSE (test code = GLU) 95 mg/dL 74-106 N BLOOD UREA NITROGEN (test code = BUN) 11 mg/dL 7-18 N GLOMERULAR FILTRATION RATE (test code = GFR) 45 mL/min >=60 Estimated GFR by using Modified MDRD formula.Chronic kidney disease is defined as either kidney damageor GFR <60 mL/min/1.73 m2 for >3 months. CREATININE (test code = CREAT) 1.20 mg/dL 0.55-1.02 H Note change in reference range due to change in reagent. BUN/CREATININE RATIO (test code = BUN/CREA) 9.2 10-20 L CALCIUM (test code = CA) 7.6 mg/dL 8.5-10.1 L CBC W/AUTO [id number] 03:31:00* Test Item Value Reference Range Interpretation Comments WHITE BLOOD CELL (test code = WBC) 6.4 K/mm3 4.5-12.5 N RED BLOOD CELL (test code = RBC) 3.67 mill/mm3 3.7-5.2 L HEMOGLOBIN (test code = HGB) 9.4 gram/dL 11.5-15.5 L HEMATOCRIT (test code = HCT) 31.5 % 36.0-46.0 L MEAN CELL VOLUME (test code = MCV) 85.8 fL 80-98 N MEAN CELL HGB (test code = MCH) 25.6 picogram 27.0-33.0 L MEAN CELL HGB CONCETRATION (test code = MCHC) 29.8 gram/dL 33.0-36. 0 L RED CELL DISTRIBUTION WIDTH (test code = RDW) 14.6 % 11.6-16. 2 N RED CELL DISTRIBUTION WIDTH SD (test code = RDW-SD) 45.9 fL 37 .0-51.0 N PLATELET COUNT (test code = PLT) 130 K/mm3 150-450 L MEAN PLATELET VOLUME (test code = MPV) 11.4 fL 6.7-11.0 H NEUTROPHIL % (test code = NT%) 67.4 % 39.0-69.0 N IMMATURE GRANULOCYTE % (test code = IG%) 4.4 % 0.0-5.0 N LYMPHOCYTE % (test code = LY%) 18.6 % 25.0-55.0 L MONOCYTE % (test code = MO%) 5.4 % 0.0-10.0 N EOSINOPHIL % (test code = EO%) 3.6 % 0.0-5.0 N BASOPHIL % (test code = BA%) 0.6 % 0.0-1.0 N NUCLEATED RBC % (test code = NRBC%) 0.0 % 0-0 N NEUTROPHIL # (test code = NT#) 4.28 K/mm3 1.8-7.7 N IMMATURE GRANULOCYTE # (test code = IG#) 0.28 x10 3/uL 0-0.03 H LYMPHOCYTE # (test code = LY#) 1.18 K/mm3 1.0-5.0 N MONOCYTE # (test code = MO#) 0.34 K/mm3 0-0.8 N EOSINOPHIL # (test code = EO#) 0.23 K/mm3 0.0-0.5 N BASOPHIL # (test code = BA#) 0.04 K/mm3 0.0-0.2 N NUCLEATED RBC # (test code = NRBC#) 0.00 K/mm3 0.0-0.1 N MANUAL DIFF REQUIRED (test code = MDIFF) NO, ONLY SCAN NEEDED DIFFERENTIAL [id number] 03:31:00* Test Item Value Reference Range Interpretation Comments STAIN ACCEPTABILITY (test code = STN ACCEPTABLE) STAIN ACCEPTABLE MORPHOLOGY COMMENT (test code = MOC) TEST NOT PERFORMED PLATELET ESTIMATE (test code = PLTEST) DECREASED PLATELET MORPHOLOGY (test code = PLTMORPH) NORMAL BASIC METABOLIC [id number] 02:25:00* Test Item Value Reference Range Interpretation Comments SODIUM (test code = NA) 146 mmol/L 136-145 H POTASSIUM (test code = K) 3.9 mmol/L 3.5-5.1 N CHLORIDE (test code = CL) 117.0 mmol/L 98-107 H CARBON DIOXIDE (test code = CO2) 25.0 mmol/L 21-32 N ANION GAP (test code = GAP) 7.9 10-20 L GLUCOSE (test code = GLU) 92 mg/dL 74-106 N BLOOD UREA NITROGEN (test code = BUN) 20 mg/dL 7-18 H GLOMERULAR FILTRATION RATE (test code = GFR) 49 mL/min >=60 Estimated GFR by using Modified MDRD formula.Chronic kidney disease is defined as either kidney damageor GFR <60 mL/min/1.73 m2 for >3 months. CREATININE (test code = CREAT) 1.10 mg/dL 0.55-1.02 H Note change in reference range due to change in reagent. BUN/CREATININE RATIO (test code = BUN/CREA) 18.2 10-20 N CALCIUM (test code = CA) 7.8 mg/dL 8.5-10.1 L [id number] 02:25:00* Test Item Value Reference Range Interpretation Comments PHOSPHORUS (test code = PHOS) 2.1 mg/dL 2.5-4.9 L [id number] 02:25:00* Test Item Value Reference Range Interpretation Comments MAGNESIUM (test code = MAG) 2.0 mg/dL 1.8-2.4 N CALCIUM [id number] 02:25:00* Test Item Value Reference Range Interpretation Comments CALCIUM IONIZED (test code = OCHOA) 1.20 mmol/L 1.12-1.32 N BASIC METABOLIC [id number] 02:18:00* Test Item Value Reference Range Interpretation Comments SODIUM (test code = NA) 146 mmol/L 136-145 H POTASSIUM (test code = K) 3.9 mmol/L 3.5-5.1 N CHLORIDE (test code = CL) 117.0 mmol/L 98-107 H CARBON DIOXIDE (test code = CO2) 25.0 mmol/L 21-32 N ANION GAP (test code = GAP) 7.9 10-20 L GLUCOSE (test code = GLU) 92 mg/dL 74-106 N BLOOD UREA NITROGEN (test code = BUN) 20 mg/dL 7-18 H GLOMERULAR FILTRATION RATE (test code = GFR) 49 mL/min >=60 Estimated GFR by using Modified MDRD formula.Chronic kidney disease is defined as either kidney damageor GFR <60 mL/min/1.73 m2 for >3 months. CREATININE (test code = CREAT) 1.10 mg/dL 0.55-1.02 H Note change in reference range due to change in reagent. BUN/CREATININE RATIO (test code = BUN/CREA) 18.2 10-20 N CALCIUM (test code = CA) 7.8 mg/dL 8.5-10.1 L [id number] 02:18:00* Test Item Value Reference Range Interpretation Comments PHOSPHORUS (test code = PHOS) 2.1 mg/dL 2.5-4.9 L [id number] 02:18:00* Test Item Value Reference Range Interpretation Comments MAGNESIUM (test code = MAG) 2.0 mg/dL 1.8-2.4 N CALCIUM [id number] 02:18:00* Test Item Value Reference Range Interpretation Comments CALCIUM IONIZED (test code = OCHOA) mmol/L 1.12-1.32 CBC W/AUTO [id number] 02:14:00* Test Item Value Reference Range Interpretation Comments WHITE BLOOD CELL (test code = WBC) 6.4 K/mm3 4.5-12.5 N RED BLOOD CELL (test code = RBC) 3.67 mill/mm3 3.7-5.2 L HEMOGLOBIN (test code = HGB) 9.4 gram/dL 11.5-15.5 L HEMATOCRIT (test code = HCT) 31.5 % 36.0-46.0 L MEAN CELL VOLUME (test code = MCV) 85.8 fL 80-98 N MEAN CELL HGB (test code = MCH) 25.6 picogram 27.0-33.0 L MEAN CELL HGB CONCETRATION (test code = MCHC) 29.8 gram/dL 33.0-36. 0 L RED CELL DISTRIBUTION WIDTH (test code = RDW) 14.6 % 11.6-16. 2 N RED CELL DISTRIBUTION WIDTH SD (test code = RDW-SD) 45.9 fL 37 .0-51.0 N PLATELET COUNT (test code = PLT) 130 K/mm3 150-450 L MEAN PLATELET VOLUME (test code = MPV) 11.4 fL 6.7-11.0 H NEUTROPHIL % (test code = NT%) 67.4 % 39.0-69.0 N IMMATURE GRANULOCYTE % (test code = IG%) 4.4 % 0.0-5.0 N LYMPHOCYTE % (test code = LY%) 18.6 % 25.0-55.0 L MONOCYTE % (test code = MO%) 5.4 % 0.0-10.0 N EOSINOPHIL % (test code = EO%) 3.6 % 0.0-5.0 N BASOPHIL % (test code = BA%) 0.6 % 0.0-1.0 N NUCLEATED RBC % (test code = NRBC%) 0.0 % 0-0 N NEUTROPHIL # (test code = NT#) 4.28 K/mm3 1.8-7.7 N IMMATURE GRANULOCYTE # (test code = IG#) 0.28 x10 3/uL 0-0.03 H LYMPHOCYTE # (test code = LY#) 1.18 K/mm3 1.0-5.0 N MONOCYTE # (test code = MO#) 0.34 K/mm3 0-0.8 N EOSINOPHIL # (test code = EO#) 0.23 K/mm3 0.0-0.5 N BASOPHIL # (test code = BA#) 0.04 K/mm3 0.0-0.2 N NUCLEATED RBC # (test code = NRBC#) 0.00 K/mm3 0.0-0.1 N MANUAL DIFF REQUIRED (test code = MDIFF) NO, ONLY SCAN NEEDED DIFFERENTIAL [id number] 02:14:00* Test Item Value Reference Range Interpretation Comments STAIN ACCEPTABILITY (test code = STN ACCEPTABLE) CABOT RINGS (test code = CAB) MORPHOLOGY COMMENT (test code = MOC) PLATELET ESTIMATE (test code = PLTEST) PLATELET MORPHOLOGY (test code = PLTMORPH) CBC W/AUTO [id number] 02:14:00* Test Item Value Reference Range Interpretation Comments WHITE BLOOD CELL (test code = WBC) 6.4 K/mm3 4.5-12.5 N RED BLOOD CELL (test code = RBC) 3.67 mill/mm3 3.7-5.2 L HEMOGLOBIN (test code = HGB) 9.4 gram/dL 11.5-15.5 L HEMATOCRIT (test code = HCT) 31.5 % 36.0-46.0 L MEAN CELL VOLUME (test code = MCV) 85.8 fL 80-98 N MEAN CELL HGB (test code = MCH) 25.6 picogram 27.0-33.0 L MEAN CELL HGB CONCETRATION (test code = MCHC) 29.8 gram/dL 33.0-36. 0 L RED CELL DISTRIBUTION WIDTH (test code = RDW) 14.6 % 11.6-16. 2 N RED CELL DISTRIBUTION WIDTH SD (test code = RDW-SD) 45.9 fL 37 .0-51.0 N PLATELET COUNT (test code = PLT) 130 K/mm3 150-450 L MEAN PLATELET VOLUME (test code = MPV) 11.4 fL 6.7-11.0 H NEUTROPHIL % (test code = NT%) 67.4 % 39.0-69.0 N IMMATURE GRANULOCYTE % (test code = IG%) 4.4 % 0.0-5.0 N LYMPHOCYTE % (test code = LY%) 18.6 % 25.0-55.0 L MONOCYTE % (test code = MO%) 5.4 % 0.0-10.0 N EOSINOPHIL % (test code = EO%) 3.6 % 0.0-5.0 N BASOPHIL % (test code = BA%) 0.6 % 0.0-1.0 N NUCLEATED RBC % (test code = NRBC%) 0.0 % 0-0 N NEUTROPHIL # (test code = NT#) 4.28 K/mm3 1.8-7.7 N IMMATURE GRANULOCYTE # (test code = IG#) 0.28 x10 3/uL 0-0.03 H LYMPHOCYTE # (test code = LY#) 1.18 K/mm3 1.0-5.0 N MONOCYTE # (test code = MO#) 0.34 K/mm3 0-0.8 N EOSINOPHIL # (test code = EO#) 0.23 K/mm3 0.0-0.5 N BASOPHIL # (test code = BA#) 0.04 K/mm3 0.0-0.2 N NUCLEATED RBC # (test code = NRBC#) 0.00 K/mm3 0.0-0.1 N MANUAL DIFF REQUIRED (test code = MDIFF) NO, ONLY SCAN NEEDED DIFFERENTIAL [id number] 02:14:00* Test Item Value Reference Range Interpretation Comments STAIN ACCEPTABILITY (test code = STN ACCEPTABLE) CABOT RINGS (test code = CAB) MORPHOLOGY COMMENT (test code = MOC) PLATELET ESTIMATE (test code = PLTEST) PLATELET MORPHOLOGY (test code = PLTMORPH) CBC W/AUTO [id number] 02:14:00* Test Item Value Reference Range Interpretation Comments WHITE BLOOD CELL (test code = WBC) 6.4 K/mm3 4.5-12.5 N RED BLOOD CELL (test code = RBC) 3.67 mill/mm3 3.7-5.2 L HEMOGLOBIN (test code = HGB) 9.4 gram/dL 11.5-15.5 L HEMATOCRIT (test code = HCT) 31.5 % 36.0-46.0 L MEAN CELL VOLUME (test code = MCV) 85.8 fL 80-98 N MEAN CELL HGB (test code = MCH) 25.6 picogram 27.0-33.0 L MEAN CELL HGB CONCETRATION (test code = MCHC) 29.8 gram/dL 33.0-36. 0 L RED CELL DISTRIBUTION WIDTH (test code = RDW) 14.6 % 11.6-16. 2 N RED CELL DISTRIBUTION WIDTH SD (test code = RDW-SD) 45.9 fL 37 .0-51.0 N PLATELET COUNT (test code = PLT) 130 K/mm3 150-450 L MEAN PLATELET VOLUME (test code = MPV) 11.4 fL 6.7-11.0 H NEUTROPHIL % (test code = NT%) 67.4 % 39.0-69.0 N IMMATURE GRANULOCYTE % (test code = IG%) 4.4 % 0.0-5.0 N LYMPHOCYTE % (test code = LY%) 18.6 % 25.0-55.0 L MONOCYTE % (test code = MO%) 5.4 % 0.0-10.0 N EOSINOPHIL % (test code = EO%) 3.6 % 0.0-5.0 N BASOPHIL % (test code = BA%) 0.6 % 0.0-1.0 N NUCLEATED RBC % (test code = NRBC%) 0.0 % 0-0 N NEUTROPHIL # (test code = NT#) 4.28 K/mm3 1.8-7.7 N IMMATURE GRANULOCYTE # (test code = IG#) 0.28 x10 3/uL 0-0.03 H LYMPHOCYTE # (test code = LY#) 1.18 K/mm3 1.0-5.0 N MONOCYTE # (test code = MO#) 0.34 K/mm3 0-0.8 N EOSINOPHIL # (test code = EO#) 0.23 K/mm3 0.0-0.5 N BASOPHIL # (test code = BA#) 0.04 K/mm3 0.0-0.2 N NUCLEATED RBC # (test code = NRBC#) 0.00 K/mm3 0.0-0.1 N MANUAL DIFF REQUIRED (test code = MDIFF) NO, ONLY SCAN NEEDED DIFFERENTIAL [id number] 02:14:00* Test Item Value Reference Range Interpretation Comments STAIN ACCEPTABILITY (test code = STN ACCEPTABLE) MORPHOLOGY COMMENT (test code = MOC) PLATELET ESTIMATE (test code = PLTEST) PLATELET MORPHOLOGY (test code = PLTMORPH) CBC W/AUTO [id number] 02:14:00* Test Item Value Reference Range Interpretation Comments WHITE BLOOD CELL (test code = WBC) 6.4 K/mm3 4.5-12.5 N RED BLOOD CELL (test code = RBC) 3.67 mill/mm3 3.7-5.2 L HEMOGLOBIN (test code = HGB) 9.4 gram/dL 11.5-15.5 L HEMATOCRIT (test code = HCT) 31.5 % 36.0-46.0 L MEAN CELL VOLUME (test code = MCV) 85.8 fL 80-98 N MEAN CELL HGB (test code = MCH) 25.6 picogram 27.0-33.0 L MEAN CELL HGB CONCETRATION (test code = MCHC) 29.8 gram/dL 33.0-36. 0 L RED CELL DISTRIBUTION WIDTH (test code = RDW) 14.6 % 11.6-16. 2 N RED CELL DISTRIBUTION WIDTH SD (test code = RDW-SD) 45.9 fL 37 .0-51.0 N PLATELET COUNT (test code = PLT) 130 K/mm3 150-450 L MEAN PLATELET VOLUME (test code = MPV) 11.4 fL 6.7-11.0 H NEUTROPHIL % (test code = NT%) 67.4 % 39.0-69.0 N IMMATURE GRANULOCYTE % (test code = IG%) 4.4 % 0.0-5.0 N LYMPHOCYTE % (test code = LY%) 18.6 % 25.0-55.0 L MONOCYTE % (test code = MO%) 5.4 % 0.0-10.0 N EOSINOPHIL % (test code = EO%) 3.6 % 0.0-5.0 N BASOPHIL % (test code = BA%) 0.6 % 0.0-1.0 N NUCLEATED RBC % (test code = NRBC%) 0.0 % 0-0 N NEUTROPHIL # (test code = NT#) 4.28 K/mm3 1.8-7.7 N IMMATURE GRANULOCYTE # (test code = IG#) 0.28 x10 3/uL 0-0.03 H LYMPHOCYTE # (test code = LY#) 1.18 K/mm3 1.0-5.0 N MONOCYTE # (test code = MO#) 0.34 K/mm3 0-0.8 N EOSINOPHIL # (test code = EO#) 0.23 K/mm3 0.0-0.5 N BASOPHIL # (test code = BA#) 0.04 K/mm3 0.0-0.2 N NUCLEATED RBC # (test code = NRBC#) 0.00 K/mm3 0.0-0.1 N MANUAL DIFF REQUIRED (test code = MDIFF) NO, ONLY SCAN NEEDED DIFFERENTIAL [id number] 02:14:00* Test Item Value Reference Range Interpretation Comments STAIN ACCEPTABILITY (test code = STN ACCEPTABLE) CABOT RINGS (test code = CAB) MORPHOLOGY COMMENT (test code = MOC) PLATELET ESTIMATE (test code = PLTEST) PLATELET MORPHOLOGY (test code = PLTMORPH) BASIC METABOLIC [id number] 02:13:00* Test Item Value Reference Range Interpretation Comments SODIUM (test code = NA) 146 mmol/L 136-145 H POTASSIUM (test code = K) 3.9 mmol/L 3.5-5.1 N CHLORIDE (test code = CL) 117.0 mmol/L 98-107 H CARBON DIOXIDE (test code = CO2) mmol/L 21-32 ANION GAP (test code = GAP) 10-20 GLUCOSE (test code = GLU) mg/dL 74-106 BLOOD UREA NITROGEN (test code = BUN) mg/dL 7-18 GLOMERULAR FILTRATION RATE (test code = GFR) mL/min >=60 CREATININE (test code = CREAT) mg/dL 0.55-1.02 BUN/CREATININE RATIO (test code = BUN/CREA) 10-20 CALCIUM (test code = CA) mg/dL 8.5-10.1 [id number] 02:13:00* Test Item Value Reference Range Interpretation Comments PHOSPHORUS (test code = PHOS) mg/dL 2.5-4.9 [id number] 02:13:00* Test Item Value Reference Range Interpretation Comments MAGNESIUM (test code = MAG) mg/dL 1.8-2.4 CALCIUM [id number] 02:13:00* Test Item Value Reference Range Interpretation Comments CALCIUM IONIZED (test code = OCHOA) mmol/L 1.12-1.32 CALCIUM [id number] 05:02:00* Test Item Value Reference Range Interpretation Comments CALCIUM IONIZED (test code = OCHOA) 1.19 mmol/L 1.12-1.32 N REQUESTED A SERUM TUBE, NOTIFIED [id number] CBC W/AUTO [id number] 02:31:00* Test Item Value Reference Range Interpretation Comments WHITE BLOOD CELL (test code = WBC) 7.5 K/mm3 4.5-12.5 N RED BLOOD CELL (test code = RBC) 3.75 mill/mm3 3.7-5.2 N HEMOGLOBIN (test code = HGB) 9.7 gram/dL 11.5-15.5 L HEMATOCRIT (test code = HCT) 33.1 % 36.0-46.0 L MEAN CELL VOLUME (test code = MCV) 88.3 fL 80-98 N MEAN CELL HGB (test code = MCH) 25.9 picogram 27.0-33.0 L MEAN CELL HGB CONCETRATION (test code = MCHC) 29.3 gram/dL 33.0-36. 0 L RED CELL DISTRIBUTION WIDTH (test code = RDW) 14.8 % 11.6-16. 2 N RED CELL DISTRIBUTION WIDTH SD (test code = RDW-SD) 48.1 fL 37 .0-51.0 N PLATELET COUNT (test code = PLT) 135 K/mm3 150-450 L MEAN PLATELET VOLUME (test code = MPV) 11.3 fL 6.7-11.0 H NEUTROPHIL % (test code = NT%) 80.1 % 39.0-69.0 H IMMATURE GRANULOCYTE % (test code = IG%) 1.2 % 0.0-5.0 N LYMPHOCYTE % (test code = LY%) 11.5 % 25.0-55.0 L MONOCYTE % (test code = MO%) 3.3 % 0.0-10.0 N EOSINOPHIL % (test code = EO%) 3.4 % 0.0-5.0 N BASOPHIL % (test code = BA%) 0.5 % 0.0-1.0 N NUCLEATED RBC % (test code = NRBC%) 0.0 % 0-0 N NEUTROPHIL # (test code = NT#) 6.03 K/mm3 1.8-7.7 N IMMATURE GRANULOCYTE # (test code = IG#) 0.09 x10 3/uL 0-0.03 H LYMPHOCYTE # (test code = LY#) 0.87 K/mm3 1.0-5.0 L MONOCYTE # (test code = MO#) 0.25 K/mm3 0-0.8 N EOSINOPHIL # (test code = EO#) 0.26 K/mm3 0.0-0.5 N BASOPHIL # (test code = BA#) 0.04 K/mm3 0.0-0.2 N NUCLEATED RBC # (test code = NRBC#) 0.00 K/mm3 0.0-0.1 N MANUAL DIFF REQUIRED (test code = MDIFF) NO, ONLY SCAN NEEDED DIFFERENTIAL [id number] 02:31:00* Test Item Value Reference Range Interpretation Comments STAIN ACCEPTABILITY (test code = STN ACCEPTABLE) STAIN ACCEPTABLE POIKILOCYTOSIS (test code = POIK) 1+ ANISOCYTOSIS (test code = ANISO) 1+ MICROCYTOSIS (test code = MICR) 1+ AMELIA CELLS (test code = AMELIA) 2+ NONE MORPHOLOGY COMMENT (test code = MOC) TEST NOT PERFORMED PLATELET ESTIMATE (test code = PLTEST) DECREASED PLATELET MORPHOLOGY (test code = PLTMORPH) NORMAL BASIC METABOLIC [id number] 02:30:00* Test Item Value Reference Range Interpretation Comments SODIUM (test code = NA) 146 mmol/L 136-145 H POTASSIUM (test code = K) 3.8 mmol/L 3.5-5.1 N CHLORIDE (test code = CL) 118.0 mmol/L 98-107 H CARBON DIOXIDE (test code = CO2) 23.0 mmol/L 21-32 N ANION GAP (test code = GAP) 8.8 10-20 L GLUCOSE (test code = GLU) 80 mg/dL 74-106 N BLOOD UREA NITROGEN (test code = BUN) 21 mg/dL 7-18 H GLOMERULAR FILTRATION RATE (test code = GFR) 45 mL/min >=60 Estimated GFR by using Modified MDRD formula.Chronic kidney disease is defined as either kidney damageor GFR <60 mL/min/1.73 m2 for >3 months. CREATININE (test code = CREAT) 1.20 mg/dL 0.55-1.02 H Note change in reference range due to change in reagent. BUN/CREATININE RATIO (test code = BUN/CREA) 17.5 10-20 N CALCIUM (test code = CA) 7.8 mg/dL 8.5-10.1 L [id number] 02:30:00* Test Item Value Reference Range Interpretation Comments PHOSPHORUS (test code = PHOS) 2.5 mg/dL 2.5-4.9 N [id number] 02:30:00* Test Item Value Reference Range Interpretation Comments MAGNESIUM (test code = MAG) 2.0 mg/dL 1.8-2.4 N CALCIUM [id number] 02:30:00* Test Item Value Reference Range Interpretation Comments CALCIUM IONIZED (test code = OCHOA) mmol/L 1.12-1.32 BASIC METABOLIC [id number] 02:25:00* Test Item Value Reference Range Interpretation Comments SODIUM (test code = NA) 146 mmol/L 136-145 H POTASSIUM (test code = K) 3.8 mmol/L 3.5-5.1 N CHLORIDE (test code = CL) 118.0 mmol/L 98-107 H CARBON DIOXIDE (test code = CO2) mmol/L 21-32 ANION GAP (test code = GAP) 10-20 GLUCOSE (test code = GLU) mg/dL 74-106 BLOOD UREA NITROGEN (test code = BUN) mg/dL 7-18 GLOMERULAR FILTRATION RATE (test code = GFR) mL/min >=60 CREATININE (test code = CREAT) mg/dL 0.55-1.02 BUN/CREATININE RATIO (test code = BUN/CREA) 10-20 CALCIUM (test code = CA) mg/dL 8.5-10.1 [id number] 02:25:00* Test Item Value Reference Range Interpretation Comments PHOSPHORUS (test code = PHOS) mg/dL 2.5-4.9 [id number] 02:25:00* Test Item Value Reference Range Interpretation Comments MAGNESIUM (test code = MAG) mg/dL 1.8-2.4 CALCIUM [id number] 02:25:00* Test Item Value Reference Range Interpretation Comments CALCIUM IONIZED (test code = OCHOA) mmol/L 1.12-1.32 CBC W/AUTO [id number] 02:11:00* Test Item Value Reference Range Interpretation Comments WHITE BLOOD CELL (test code = WBC) 7.5 K/mm3 4.5-12.5 N RED BLOOD CELL (test code = RBC) 3.75 mill/mm3 3.7-5.2 N HEMOGLOBIN (test code = HGB) 9.7 gram/dL 11.5-15.5 L HEMATOCRIT (test code = HCT) 33.1 % 36.0-46.0 L MEAN CELL VOLUME (test code = MCV) 88.3 fL 80-98 N MEAN CELL HGB (test code = MCH) 25.9 picogram 27.0-33.0 L MEAN CELL HGB CONCETRATION (test code = MCHC) 29.3 gram/dL 33.0-36. 0 L RED CELL DISTRIBUTION WIDTH (test code = RDW) 14.8 % 11.6-16. 2 N RED CELL DISTRIBUTION WIDTH SD (test code = RDW-SD) 48.1 fL 37 .0-51.0 N PLATELET COUNT (test code = PLT) 135 K/mm3 150-450 L MEAN PLATELET VOLUME (test code = MPV) 11.3 fL 6.7-11.0 H NEUTROPHIL % (test code = NT%) 80.1 % 39.0-69.0 H IMMATURE GRANULOCYTE % (test code = IG%) 1.2 % 0.0-5.0 N LYMPHOCYTE % (test code = LY%) 11.5 % 25.0-55.0 L MONOCYTE % (test code = MO%) 3.3 % 0.0-10.0 N EOSINOPHIL % (test code = EO%) 3.4 % 0.0-5.0 N BASOPHIL % (test code = BA%) 0.5 % 0.0-1.0 N NUCLEATED RBC % (test code = NRBC%) 0.0 % 0-0 N NEUTROPHIL # (test code = NT#) 6.03 K/mm3 1.8-7.7 N IMMATURE GRANULOCYTE # (test code = IG#) 0.09 x10 3/uL 0-0.03 H LYMPHOCYTE # (test code = LY#) 0.87 K/mm3 1.0-5.0 L MONOCYTE # (test code = MO#) 0.25 K/mm3 0-0.8 N EOSINOPHIL # (test code = EO#) 0.26 K/mm3 0.0-0.5 N BASOPHIL # (test code = BA#) 0.04 K/mm3 0.0-0.2 N NUCLEATED RBC # (test code = NRBC#) 0.00 K/mm3 0.0-0.1 N MANUAL DIFF REQUIRED (test code = MDIFF) NO, ONLY SCAN NEEDED DIFFERENTIAL [id number] 02:11:00* Test Item Value Reference Range Interpretation Comments STAIN ACCEPTABILITY (test code = STN ACCEPTABLE) CABOT RINGS (test code = CAB) MORPHOLOGY COMMENT (test code = MOC) PLATELET ESTIMATE (test code = PLTEST) PLATELET MORPHOLOGY (test code = PLTMORPH) CBC W/AUTO [id number] 02:11:00* Test Item Value Reference Range Interpretation Comments WHITE BLOOD CELL (test code = WBC) 7.5 K/mm3 4.5-12.5 N RED BLOOD CELL (test code = RBC) 3.75 mill/mm3 3.7-5.2 N HEMOGLOBIN (test code = HGB) 9.7 gram/dL 11.5-15.5 L HEMATOCRIT (test code = HCT) 33.1 % 36.0-46.0 L MEAN CELL VOLUME (test code = MCV) 88.3 fL 80-98 N MEAN CELL HGB (test code = MCH) 25.9 picogram 27.0-33.0 L MEAN CELL HGB CONCETRATION (test code = MCHC) 29.3 gram/dL 33.0-36. 0 L RED CELL DISTRIBUTION WIDTH (test code = RDW) 14.8 % 11.6-16. 2 N RED CELL DISTRIBUTION WIDTH SD (test code = RDW-SD) 48.1 fL 37 .0-51.0 N PLATELET COUNT (test code = PLT) 135 K/mm3 150-450 L MEAN PLATELET VOLUME (test code = MPV) 11.3 fL 6.7-11.0 H NEUTROPHIL % (test code = NT%) 80.1 % 39.0-69.0 H IMMATURE GRANULOCYTE % (test code = IG%) 1.2 % 0.0-5.0 N LYMPHOCYTE % (test code = LY%) 11.5 % 25.0-55.0 L MONOCYTE % (test code = MO%) 3.3 % 0.0-10.0 N EOSINOPHIL % (test code = EO%) 3.4 % 0.0-5.0 N BASOPHIL % (test code = BA%) 0.5 % 0.0-1.0 N NUCLEATED RBC % (test code = NRBC%) 0.0 % 0-0 N NEUTROPHIL # (test code = NT#) 6.03 K/mm3 1.8-7.7 N IMMATURE GRANULOCYTE # (test code = IG#) 0.09 x10 3/uL 0-0.03 H LYMPHOCYTE # (test code = LY#) 0.87 K/mm3 1.0-5.0 L MONOCYTE # (test code = MO#) 0.25 K/mm3 0-0.8 N EOSINOPHIL # (test code = EO#) 0.26 K/mm3 0.0-0.5 N BASOPHIL # (test code = BA#) 0.04 K/mm3 0.0-0.2 N NUCLEATED RBC # (test code = NRBC#) 0.00 K/mm3 0.0-0.1 N MANUAL DIFF REQUIRED (test code = MDIFF) NO, ONLY SCAN NEEDED DIFFERENTIAL [id number] 02:11:00* Test Item Value Reference Range Interpretation Comments STAIN ACCEPTABILITY (test code = STN ACCEPTABLE) CABOT RINGS (test code = CAB) MORPHOLOGY COMMENT (test code = MOC) PLATELET ESTIMATE (test code = PLTEST) PLATELET MORPHOLOGY (test code = PLTMORPH) CBC W/AUTO [id number] 02:11:00* Test Item Value Reference Range Interpretation Comments WHITE BLOOD CELL (test code = WBC) 7.5 K/mm3 4.5-12.5 N RED BLOOD CELL (test code = RBC) 3.75 mill/mm3 3.7-5.2 N HEMOGLOBIN (test code = HGB) 9.7 gram/dL 11.5-15.5 L HEMATOCRIT (test code = HCT) 33.1 % 36.0-46.0 L MEAN CELL VOLUME (test code = MCV) 88.3 fL 80-98 N MEAN CELL HGB (test code = MCH) 25.9 picogram 27.0-33.0 L MEAN CELL HGB CONCETRATION (test code = MCHC) 29.3 gram/dL 33.0-36. 0 L RED CELL DISTRIBUTION WIDTH (test code = RDW) 14.8 % 11.6-16. 2 N RED CELL DISTRIBUTION WIDTH SD (test code = RDW-SD) 48.1 fL 37 .0-51.0 N PLATELET COUNT (test code = PLT) 135 K/mm3 150-450 L MEAN PLATELET VOLUME (test code = MPV) 11.3 fL 6.7-11.0 H NEUTROPHIL % (test code = NT%) 80.1 % 39.0-69.0 H IMMATURE GRANULOCYTE % (test code = IG%) 1.2 % 0.0-5.0 N LYMPHOCYTE % (test code = LY%) 11.5 % 25.0-55.0 L MONOCYTE % (test code = MO%) 3.3 % 0.0-10.0 N EOSINOPHIL % (test code = EO%) 3.4 % 0.0-5.0 N BASOPHIL % (test code = BA%) 0.5 % 0.0-1.0 N NUCLEATED RBC % (test code = NRBC%) 0.0 % 0-0 N NEUTROPHIL # (test code = NT#) 6.03 K/mm3 1.8-7.7 N IMMATURE GRANULOCYTE # (test code = IG#) 0.09 x10 3/uL 0-0.03 H LYMPHOCYTE # (test code = LY#) 0.87 K/mm3 1.0-5.0 L MONOCYTE # (test code = MO#) 0.25 K/mm3 0-0.8 N EOSINOPHIL # (test code = EO#) 0.26 K/mm3 0.0-0.5 N BASOPHIL # (test code = BA#) 0.04 K/mm3 0.0-0.2 N NUCLEATED RBC # (test code = NRBC#) 0.00 K/mm3 0.0-0.1 N MANUAL DIFF REQUIRED (test code = MDIFF) NO, ONLY SCAN NEEDED DIFFERENTIAL [id number] 02:11:00* Test Item Value Reference Range Interpretation Comments STAIN ACCEPTABILITY (test code = STN ACCEPTABLE) MORPHOLOGY COMMENT (test code = MOC) PLATELET ESTIMATE (test code = PLTEST) PLATELET MORPHOLOGY (test code = PLTMORPH) CBC W/AUTO [id number] 02:11:00* Test Item Value Reference Range Interpretation Comments WHITE BLOOD CELL (test code = WBC) 7.5 K/mm3 4.5-12.5 N RED BLOOD CELL (test code = RBC) 3.75 mill/mm3 3.7-5.2 N HEMOGLOBIN (test code = HGB) 9.7 gram/dL 11.5-15.5 L HEMATOCRIT (test code = HCT) 33.1 % 36.0-46.0 L MEAN CELL VOLUME (test code = MCV) 88.3 fL 80-98 N MEAN CELL HGB (test code = MCH) 25.9 picogram 27.0-33.0 L MEAN CELL HGB CONCETRATION (test code = MCHC) 29.3 gram/dL 33.0-36. 0 L RED CELL DISTRIBUTION WIDTH (test code = RDW) 14.8 % 11.6-16. 2 N RED CELL DISTRIBUTION WIDTH SD (test code = RDW-SD) 48.1 fL 37 .0-51.0 N PLATELET COUNT (test code = PLT) 135 K/mm3 150-450 L MEAN PLATELET VOLUME (test code = MPV) 11.3 fL 6.7-11.0 H NEUTROPHIL % (test code = NT%) 80.1 % 39.0-69.0 H IMMATURE GRANULOCYTE % (test code = IG%) 1.2 % 0.0-5.0 N LYMPHOCYTE % (test code = LY%) 11.5 % 25.0-55.0 L MONOCYTE % (test code = MO%) 3.3 % 0.0-10.0 N EOSINOPHIL % (test code = EO%) 3.4 % 0.0-5.0 N BASOPHIL % (test code = BA%) 0.5 % 0.0-1.0 N NUCLEATED RBC % (test code = NRBC%) 0.0 % 0-0 N NEUTROPHIL # (test code = NT#) 6.03 K/mm3 1.8-7.7 N IMMATURE GRANULOCYTE # (test code = IG#) 0.09 x10 3/uL 0-0.03 H LYMPHOCYTE # (test code = LY#) 0.87 K/mm3 1.0-5.0 L MONOCYTE # (test code = MO#) 0.25 K/mm3 0-0.8 N EOSINOPHIL # (test code = EO#) 0.26 K/mm3 0.0-0.5 N BASOPHIL # (test code = BA#) 0.04 K/mm3 0.0-0.2 N NUCLEATED RBC # (test code = NRBC#) 0.00 K/mm3 0.0-0.1 N MANUAL DIFF REQUIRED (test code = MDIFF) NO, ONLY SCAN NEEDED DIFFERENTIAL [id number] 02:11:00* Test Item Value Reference Range Interpretation Comments STAIN ACCEPTABILITY (test code = STN ACCEPTABLE) CABOT RINGS (test code = CAB) MORPHOLOGY COMMENT (test code = MOC) PLATELET ESTIMATE (test code = PLTEST) PLATELET MORPHOLOGY (test code = PLTMORPH) [id number] 17:36:00* Test Item Value Reference Range Interpretation Comments VANCOMYCIN (test code = VANCO) 10.2 UG/ML 5.0-45.0 N WANTS LAB STILL COLLECTED V.LAB.LB2 03/03/20 1639CBC W/AUTO [id number] 04:19:00* Test Item Value Reference Range Interpretation Comments WHITE BLOOD CELL (test code = WBC) 12.6 K/mm3 4.5-12.5 H RED BLOOD CELL (test code = RBC) 3.45 mill/mm3 3.7-5.2 L HEMOGLOBIN (test code = HGB) 9.0 gram/dL 11.5-15.5 L HEMATOCRIT (test code = HCT) 30.5 % 36.0-46.0 L MEAN CELL VOLUME (test code = MCV) 88.4 fL 80-98 N MEAN CELL HGB (test code = MCH) 26.1 picogram 27.0-33.0 L MEAN CELL HGB CONCETRATION (test code = MCHC) 29.5 gram/dL 33.0-36. 0 L RED CELL DISTRIBUTION WIDTH (test code = RDW) 15.2 % 11.6-16. 2 N RED CELL DISTRIBUTION WIDTH SD (test code = RDW-SD) 49.1 fL 37 .0-51.0 N PLATELET COUNT (test code = PLT) 121 K/mm3 150-450 L MEAN PLATELET VOLUME (test code = MPV) 10.9 fL 6.7-11.0 N NEUTROPHIL % (test code = NT%) 87.7 % 39.0-69.0 H IMMATURE GRANULOCYTE % (test code = IG%) 1.6 % 0.0-5.0 N LYMPHOCYTE % (test code = LY%) 5.5 % 25.0-55.0 L MONOCYTE % (test code = MO%) 2.4 % 0.0-10.0 N EOSINOPHIL % (test code = EO%) 2.5 % 0.0-5.0 N BASOPHIL % (test code = BA%) 0.3 % 0.0-1.0 N NUCLEATED RBC % (test code = NRBC%) 0.0 % 0-0 N NEUTROPHIL # (test code = NT#) 11.00 K/mm3 1.8-7.7 H IMMATURE GRANULOCYTE # (test code = IG#) 0.20 x10 3/uL 0-0.03 H LYMPHOCYTE # (test code = LY#) 0.69 K/mm3 1.0-5.0 L MONOCYTE # (test code = MO#) 0.30 K/mm3 0-0.8 N EOSINOPHIL # (test code = EO#) 0.32 K/mm3 0.0-0.5 N BASOPHIL # (test code = BA#) 0.04 K/mm3 0.0-0.2 N NUCLEATED RBC # (test code = NRBC#) 0.00 K/mm3 0.0-0.1 N MANUAL DIFF REQUIRED (test code = MDIFF) NO, ONLY SCAN NEEDED DIFFERENTIAL [id number] 04:19:00* Test Item Value Reference Range Interpretation Comments STAIN ACCEPTABILITY (test code = STN ACCEPTABLE) STAIN ACCEPTABLE POIKILOCYTOSIS (test code = POIK) 2+ ANISOCYTOSIS (test code = ANISO) 1+ AMELIA CELLS (test code = AMELIA) 1+ NONE MORPHOLOGY COMMENT (test code = MOC) TEST NOT PERFORMED PLATELET ESTIMATE (test code = PLTEST) DECREASED PLATELET MORPHOLOGY (test code = PLTMORPH) NORMAL BASIC METABOLIC [id number] 04:16:00* Test Item Value Reference Range Interpretation Comments SODIUM (test code = NA) 146 mmol/L 136-145 H POTASSIUM (test code = K) 3.8 mmol/L 3.5-5.1 N CHLORIDE (test code = CL) 118.0 mmol/L 98-107 H CARBON DIOXIDE (test code = CO2) 23.0 mmol/L 21-32 N ANION GAP (test code = GAP) 8.8 10-20 L GLUCOSE (test code = GLU) 104 mg/dL 74-106 N BLOOD UREA NITROGEN (test code = BUN) 30 mg/dL 7-18 H GLOMERULAR FILTRATION RATE (test code = GFR) 37 mL/min >=60 Estimated GFR by using Modified MDRD formula.Chronic kidney disease is defined as either kidney damageor GFR <60 mL/min/1.73 m2 for >3 months. CREATININE (test code = CREAT) 1.40 mg/dL 0.55-1.02 H Note change in reference range due to change in reagent. BUN/CREATININE RATIO (test code = BUN/CREA) 21.4 10-20 H CALCIUM (test code = CA) 7.4 mg/dL 8.5-10.1 L [id number] 04:16:00* Test Item Value Reference Range Interpretation Comments PHOSPHORUS (test code = PHOS) 2.5 mg/dL 2.5-4.9 N [id number] 04:16:00* Test Item Value Reference Range Interpretation Comments MAGNESIUM (test code = MAG) 2.2 mg/dL 1.8-2.4 N CALCIUM [id number] 04:16:00* Test Item Value Reference Range Interpretation Comments CALCIUM IONIZED (test code = OCHOA) 1.17 mmol/L 1.12-1.32 N BASIC METABOLIC [id number] 04:04:00* Test Item Value Reference Range Interpretation Comments SODIUM (test code = NA) mmol/L 136-145 POTASSIUM (test code = K) mmol/L 3.5-5.1 CHLORIDE (test code = CL) mmol/L 98-107 CARBON DIOXIDE (test code = CO2) mmol/L 21-32 ANION GAP (test code = GAP) 10-20 GLUCOSE (test code = GLU) mg/dL 74-106 BLOOD UREA NITROGEN (test code = BUN) mg/dL 7-18 GLOMERULAR FILTRATION RATE (test code = GFR) mL/min >=60 CREATININE (test code = CREAT) mg/dL 0.55-1.02 BUN/CREATININE RATIO (test code = BUN/CREA) 10-20 CALCIUM (test code = CA) mg/dL 8.5-10.1 [id number] 04:04:00* Test Item Value Reference Range Interpretation Comments PHOSPHORUS (test code = PHOS) mg/dL 2.5-4.9 [id number] 04:04:00* Test Item Value Reference Range Interpretation Comments MAGNESIUM (test code = MAG) mg/dL 1.8-2.4 CALCIUM [id number] 04:04:00* Test Item Value Reference Range Interpretation Comments CALCIUM IONIZED (test code = OCHOA) 1.17 mmol/L 1.12-1.32 N CBC W/AUTO [id number] 03:51:00* Test Item Value Reference Range Interpretation Comments WHITE BLOOD CELL (test code = WBC) 12.6 K/mm3 4.5-12.5 H RED BLOOD CELL (test code = RBC) 3.45 mill/mm3 3.7-5.2 L HEMOGLOBIN (test code = HGB) 9.0 gram/dL 11.5-15.5 L HEMATOCRIT (test code = HCT) 30.5 % 36.0-46.0 L MEAN CELL VOLUME (test code = MCV) 88.4 fL 80-98 N MEAN CELL HGB (test code = MCH) 26.1 picogram 27.0-33.0 L MEAN CELL HGB CONCETRATION (test code = MCHC) 29.5 gram/dL 33.0-36. 0 L RED CELL DISTRIBUTION WIDTH (test code = RDW) 15.2 % 11.6-16. 2 N RED CELL DISTRIBUTION WIDTH SD (test code = RDW-SD) 49.1 fL 37 .0-51.0 N PLATELET COUNT (test code = PLT) 121 K/mm3 150-450 L MEAN PLATELET VOLUME (test code = MPV) 10.9 fL 6.7-11.0 N NEUTROPHIL % (test code = NT%) 87.7 % 39.0-69.0 H IMMATURE GRANULOCYTE % (test code = IG%) 1.6 % 0.0-5.0 N LYMPHOCYTE % (test code = LY%) 5.5 % 25.0-55.0 L MONOCYTE % (test code = MO%) 2.4 % 0.0-10.0 N EOSINOPHIL % (test code = EO%) 2.5 % 0.0-5.0 N BASOPHIL % (test code = BA%) 0.3 % 0.0-1.0 N NUCLEATED RBC % (test code = NRBC%) 0.0 % 0-0 N NEUTROPHIL # (test code = NT#) 11.00 K/mm3 1.8-7.7 H IMMATURE GRANULOCYTE # (test code = IG#) 0.20 x10 3/uL 0-0.03 H LYMPHOCYTE # (test code = LY#) 0.69 K/mm3 1.0-5.0 L MONOCYTE # (test code = MO#) 0.30 K/mm3 0-0.8 N EOSINOPHIL # (test code = EO#) 0.32 K/mm3 0.0-0.5 N BASOPHIL # (test code = BA#) 0.04 K/mm3 0.0-0.2 N NUCLEATED RBC # (test code = NRBC#) 0.00 K/mm3 0.0-0.1 N MANUAL DIFF REQUIRED (test code = MDIFF) NO, ONLY SCAN NEEDED DIFFERENTIAL [id number] 03:51:00* Test Item Value Reference Range Interpretation Comments STAIN ACCEPTABILITY (test code = STN ACCEPTABLE) CABOT RINGS (test code = CAB) MORPHOLOGY COMMENT (test code = MOC) PLATELET ESTIMATE (test code = PLTEST) PLATELET MORPHOLOGY (test code = PLTMORPH) CBC W/AUTO [id number] 03:51:00* Test Item Value Reference Range Interpretation Comments WHITE BLOOD CELL (test code = WBC) 12.6 K/mm3 4.5-12.5 H RED BLOOD CELL (test code = RBC) 3.45 mill/mm3 3.7-5.2 L HEMOGLOBIN (test code = HGB) 9.0 gram/dL 11.5-15.5 L HEMATOCRIT (test code = HCT) 30.5 % 36.0-46.0 L MEAN CELL VOLUME (test code = MCV) 88.4 fL 80-98 N MEAN CELL HGB (test code = MCH) 26.1 picogram 27.0-33.0 L MEAN CELL HGB CONCETRATION (test code = MCHC) 29.5 gram/dL 33.0-36. 0 L RED CELL DISTRIBUTION WIDTH (test code = RDW) 15.2 % 11.6-16. 2 N RED CELL DISTRIBUTION WIDTH SD (test code = RDW-SD) 49.1 fL 37 .0-51.0 N PLATELET COUNT (test code = PLT) 121 K/mm3 150-450 L MEAN PLATELET VOLUME (test code = MPV) 10.9 fL 6.7-11.0 N NEUTROPHIL % (test code = NT%) 87.7 % 39.0-69.0 H IMMATURE GRANULOCYTE % (test code = IG%) 1.6 % 0.0-5.0 N LYMPHOCYTE % (test code = LY%) 5.5 % 25.0-55.0 L MONOCYTE % (test code = MO%) 2.4 % 0.0-10.0 N EOSINOPHIL % (test code = EO%) 2.5 % 0.0-5.0 N BASOPHIL % (test code = BA%) 0.3 % 0.0-1.0 N NUCLEATED RBC % (test code = NRBC%) 0.0 % 0-0 N NEUTROPHIL # (test code = NT#) 11.00 K/mm3 1.8-7.7 H IMMATURE GRANULOCYTE # (test code = IG#) 0.20 x10 3/uL 0-0.03 H LYMPHOCYTE # (test code = LY#) 0.69 K/mm3 1.0-5.0 L MONOCYTE # (test code = MO#) 0.30 K/mm3 0-0.8 N EOSINOPHIL # (test code = EO#) 0.32 K/mm3 0.0-0.5 N BASOPHIL # (test code = BA#) 0.04 K/mm3 0.0-0.2 N NUCLEATED RBC # (test code = NRBC#) 0.00 K/mm3 0.0-0.1 N MANUAL DIFF REQUIRED (test code = MDIFF) NO, ONLY SCAN NEEDED DIFFERENTIAL [id number] 03:51:00* Test Item Value Reference Range Interpretation Comments STAIN ACCEPTABILITY (test code = STN ACCEPTABLE) MORPHOLOGY COMMENT (test code = MOC) PLATELET ESTIMATE (test code = PLTEST) PLATELET MORPHOLOGY (test code = PLTMORPH) CBC W/AUTO [id number] 03:50:00* Test Item Value Reference Range Interpretation Comments WHITE BLOOD CELL (test code = WBC) 12.6 K/mm3 4.5-12.5 H RED BLOOD CELL (test code = RBC) 3.45 mill/mm3 3.7-5.2 L HEMOGLOBIN (test code = HGB) 9.0 gram/dL 11.5-15.5 L HEMATOCRIT (test code = HCT) 30.5 % 36.0-46.0 L MEAN CELL VOLUME (test code = MCV) 88.4 fL 80-98 N MEAN CELL HGB (test code = MCH) 26.1 picogram 27.0-33.0 L MEAN CELL HGB CONCETRATION (test code = MCHC) 29.5 gram/dL 33.0-36. 0 L RED CELL DISTRIBUTION WIDTH (test code = RDW) 15.2 % 11.6-16. 2 N RED CELL DISTRIBUTION WIDTH SD (test code = RDW-SD) 49.1 fL 37 .0-51.0 N PLATELET COUNT (test code = PLT) 121 K/mm3 150-450 L MEAN PLATELET VOLUME (test code = MPV) 10.9 fL 6.7-11.0 N NEUTROPHIL % (test code = NT%) 87.7 % 39.0-69.0 H IMMATURE GRANULOCYTE % (test code = IG%) 1.6 % 0.0-5.0 N LYMPHOCYTE % (test code = LY%) 5.5 % 25.0-55.0 L MONOCYTE % (test code = MO%) 2.4 % 0.0-10.0 N EOSINOPHIL % (test code = EO%) 2.5 % 0.0-5.0 N BASOPHIL % (test code = BA%) 0.3 % 0.0-1.0 N NUCLEATED RBC % (test code = NRBC%) 0.0 % 0-0 N NEUTROPHIL # (test code = NT#) 11.00 K/mm3 1.8-7.7 H IMMATURE GRANULOCYTE # (test code = IG#) 0.20 x10 3/uL 0-0.03 H LYMPHOCYTE # (test code = LY#) 0.69 K/mm3 1.0-5.0 L MONOCYTE # (test code = MO#) 0.30 K/mm3 0-0.8 N EOSINOPHIL # (test code = EO#) 0.32 K/mm3 0.0-0.5 N BASOPHIL # (test code = BA#) 0.04 K/mm3 0.0-0.2 N NUCLEATED RBC # (test code = NRBC#) 0.00 K/mm3 0.0-0.1 N MANUAL DIFF REQUIRED (test code = MDIFF) NO, ONLY SCAN NEEDED DIFFERENTIAL [id number] 03:50:00* Test Item Value Reference Range Interpretation Comments STAIN ACCEPTABILITY (test code = STN ACCEPTABLE) CABOT RINGS (test code = CAB) MORPHOLOGY COMMENT (test code = MOC) PLATELET ESTIMATE (test code = PLTEST) PLATELET MORPHOLOGY (test code = PLTMORPH) CBC W/AUTO [id number] 03:50:00* Test Item Value Reference Range Interpretation Comments WHITE BLOOD CELL (test code = WBC) 12.6 K/mm3 4.5-12.5 H RED BLOOD CELL (test code = RBC) 3.45 mill/mm3 3.7-5.2 L HEMOGLOBIN (test code = HGB) 9.0 gram/dL 11.5-15.5 L HEMATOCRIT (test code = HCT) 30.5 % 36.0-46.0 L MEAN CELL VOLUME (test code = MCV) 88.4 fL 80-98 N MEAN CELL HGB (test code = MCH) 26.1 picogram 27.0-33.0 L MEAN CELL HGB CONCETRATION (test code = MCHC) 29.5 gram/dL 33.0-36. 0 L RED CELL DISTRIBUTION WIDTH (test code = RDW) 15.2 % 11.6-16. 2 N RED CELL DISTRIBUTION WIDTH SD (test code = RDW-SD) 49.1 fL 37 .0-51.0 N PLATELET COUNT (test code = PLT) 121 K/mm3 150-450 L MEAN PLATELET VOLUME (test code = MPV) 10.9 fL 6.7-11.0 N NEUTROPHIL % (test code = NT%) 87.7 % 39.0-69.0 H IMMATURE GRANULOCYTE % (test code = IG%) 1.6 % 0.0-5.0 N LYMPHOCYTE % (test code = LY%) 5.5 % 25.0-55.0 L MONOCYTE % (test code = MO%) 2.4 % 0.0-10.0 N EOSINOPHIL % (test code = EO%) 2.5 % 0.0-5.0 N BASOPHIL % (test code = BA%) 0.3 % 0.0-1.0 N NUCLEATED RBC % (test code = NRBC%) 0.0 % 0-0 N NEUTROPHIL # (test code = NT#) 11.00 K/mm3 1.8-7.7 H IMMATURE GRANULOCYTE # (test code = IG#) 0.20 x10 3/uL 0-0.03 H LYMPHOCYTE # (test code = LY#) 0.69 K/mm3 1.0-5.0 L MONOCYTE # (test code = MO#) 0.30 K/mm3 0-0.8 N EOSINOPHIL # (test code = EO#) 0.32 K/mm3 0.0-0.5 N BASOPHIL # (test code = BA#) 0.04 K/mm3 0.0-0.2 N NUCLEATED RBC # (test code = NRBC#) 0.00 K/mm3 0.0-0.1 N MANUAL DIFF REQUIRED (test code = MDIFF) NO, ONLY SCAN NEEDED DIFFERENTIAL [id number] 03:50:00* Test Item Value Reference Range Interpretation Comments STAIN ACCEPTABILITY (test code = STN ACCEPTABLE) CABOT RINGS (test code = CAB) MORPHOLOGY COMMENT (test code = MOC) PLATELET ESTIMATE (test code = PLTEST) PLATELET MORPHOLOGY (test code = PLTMORPH) - XR SWLW [facility] W/C [id number] 15:24:00 FAX: Desi Mcmillan MD [phone] [place]: St: [facility] FAX: Shaun Benjamin MD Name: SADA KARIMI [facility] : 1950 Age/S: 69/F [age] [address] Unit #: [id number] Loc: [address] [address] Phys: Desi Mcmillan MD Acct: [id number] Dis Date: Status: ADM IN PHONE #: [phone] Exam Date: 03/02/2020 1538 FAX #: [phone] Reason: DYSPHAGIA EXAMS: CPT CODE: [id number] XR SWLElder PITTMANC W/C V 22581 EXAM: Modified barium swallow; INFORMATION: Dyspha dalia; IMPRESSION: 1. Silent aspiration was noticed with t hin liquids via cup. 2. Laryngeal penetration was noticed with thin liqu ids wire cup and also with nectar via straw. Fluorosco py Time: 119.2 sec CAK : 7.01 mGy Location code: [facility] at 1524 Reported and signed by: Gregorio Hartman M.D. CC: Desi Mcmillan MD; Shaun Benjamin MD Technologist: Rose Mary JIMENEZ) Trnscrd Date/Time/By: 03/02/2020 (2106) : By: ShirleyGRW Orig Print D/T: S: 03/02/2020 (6458) PAGE 1 Signed Report BASIC METABOLIC [id number] 04:33:00* Test Item Value Reference Range Interpretation Comments SODIUM (test code = NA) 148 mmol/L 136-145 H POTASSIUM (test code = K) 3.6 mmol/L 3.5-5.1 N CHLORIDE (test code = CL) 118.0 mmol/L 98-107 H CARBON DIOXIDE (test code = CO2) 23.0 mmol/L 21-32 N ANION GAP (test code = GAP) 10.6 10-20 N GLUCOSE (test code = GLU) 91 mg/dL 74-106 N BLOOD UREA NITROGEN (test code = BUN) 34 mg/dL 7-18 H GLOMERULAR FILTRATION RATE (test code = GFR) 32 mL/min >=60 Estimated GFR by using Modified MDRD formula.Chronic kidney disease is defined as either kidney damageor GFR <60 mL/min/1.73 m2 for >3 months. CREATININE (test code = CREAT) 1.60 mg/dL 0.55-1.02 H Note change in reference range due to change in reagent. BUN/CREATININE RATIO (test code = BUN/CREA) 21.3 10-20 H CALCIUM (test code = CA) 7.7 mg/dL 8.5-10.1 L [id number] 04:33:00* Test Item Value Reference Range Interpretation Comments PHOSPHORUS (test code = PHOS) 3.0 mg/dL 2.5-4.9 N [id number] 04:33:00* Test Item Value Reference Range Interpretation Comments MAGNESIUM (test code = MAG) 2.2 mg/dL 1.8-2.4 N CALCIUM [id number] 04:33:00* Test Item Value Reference Range Interpretation Comments CALCIUM IONIZED (test code = OCHOA) 1.17 mmol/L 1.12-1.32 N BASIC METABOLIC [id number] 04:32:00* Test Item Value Reference Range Interpretation Comments SODIUM (test code = NA) mmol/L 136-145 POTASSIUM (test code = K) mmol/L 3.5-5.1 CHLORIDE (test code = CL) mmol/L 98-107 CARBON DIOXIDE (test code = CO2) mmol/L 21-32 ANION GAP (test code = GAP) 10-20 GLUCOSE (test code = GLU) mg/dL 74-106 BLOOD UREA NITROGEN (test code = BUN) mg/dL 7-18 GLOMERULAR FILTRATION RATE (test code = GFR) mL/min >=60 CREATININE (test code = CREAT) mg/dL 0.55-1.02 BUN/CREATININE RATIO (test code = BUN/CREA) 10-20 CALCIUM (test code = CA) mg/dL 8.5-10.1 [id number] 04:32:00* Test Item Value Reference Range Interpretation Comments PHOSPHORUS (test code = PHOS) mg/dL 2.5-4.9 [id number] 04:32:00* Test Item Value Reference Range Interpretation Comments MAGNESIUM (test code = MAG) mg/dL 1.8-2.4 CALCIUM [id number] 04:32:00* Test Item Value Reference Range Interpretation Comments CALCIUM IONIZED (test code = OCHOA) 1.17 mmol/L 1.12-1.32 N CBC W/MANUAL [id number] 04:26:00* Test Item Value Reference Range Interpretation Comments WHITE BLOOD CELL (test code = WBC) 18.3 K/mm3 4.5-12.5 H RED BLOOD CELL (test code = RBC) 3.45 mill/mm3 3.7-5.2 L HEMOGLOBIN (test code = HGB) 9.0 gram/dL 11.5-15.5 L HEMATOCRIT (test code = HCT) 30.8 % 36.0-46.0 L MEAN CELL VOLUME (test code = MCV) 89.3 fL 80-98 N MEAN CELL HGB (test code = MCH) 26.1 picogram 27.0-33.0 L MEAN CELL HGB CONCETRATION (test code = MCHC) 29.2 gram/dL 33.0-36. 0 L RED CELL DISTRIBUTION WIDTH (test code = RDW) 15.2 % 11.6-16. 2 N RED CELL DISTRIBUTION WIDTH SD (test code = RDW-SD) 49.5 fL 37 .0-51.0 N PLATELET COUNT (test code = PLT) 148 K/mm3 150-450 L MEAN PLATELET VOLUME (test code = MPV) 10.8 fL 6.7-11.0 N NEUTROPHIL % (test code = NT%) 85.6 % 39.0-69.0 H IMMATURE GRANULOCYTE % (test code = IG%) 6.9 % 0.0-5.0 H "The appearance of immature granulocytes (myelocytes,pro-myelocytes, meta-myelocytes) in the peripheral blood ofnon- individuals can indicate a response toinfection, inflammation, or other stimulus to the bonemarrow" LYMPHOCYTE % (test code = LY%) 3.9 % 25.0-55.0 L MONOCYTE % (test code = MO%) 2.4 % 0.0-10.0 N EOSINOPHIL % (test code = EO%) 1.0 % 0.0-5.0 N BASOPHIL % (test code = BA%) 0.2 % 0.0-1.0 N NUCLEATED RBC % (test code = NRBC%) 0.0 % 0-0 N NEUTROPHIL # (test code = NT#) 15.67 K/mm3 1.8-7.7 H IMMATURE GRANULOCYTE # (test code = IG#) 1.26 x10 3/uL 0-0.03 H LYMPHOCYTE # (test code = LY#) 0.72 K/mm3 1.0-5.0 L MONOCYTE # (test code = MO#) 0.44 K/mm3 0-0.8 N EOSINOPHIL # (test code = EO#) 0.19 K/mm3 0.0-0.5 N BASOPHIL # (test code = BA#) 0.04 K/mm3 0.0-0.2 N NUCLEATED RBC # (test code = NRBC#) 0.00 K/mm3 0.0-0.1 N MANUAL DIFF REQUIRED (test code = MDIFF) DIFF NEEDED STAIN ACCEPTABILITY (test code = STN ACCEPTABLE) STAIN ACCEPTABLE TOTAL CELLS COUNTED (test code = TCC) 100 #CELLS SEGMENTED NEUTROPHILS (test code = SEG) 84 % 39-69 H BAND NEUTROPHIL (test code = BAND) 6 % 0-10 N LYMPHOCYTE (test code = LYMPH) 5 % 25-55 L MONOCYTE (test code = MON) 2 % 0-10 N EOSINOPHIL (test code = EOS) 3 % 0.0-5.0 N POIKILOCYTOSIS (test code = POIK) 1+ ANISOCYTOSIS (test code = ANISO) 1+ AMELIA CELLS (test code = AMELIA) 1+ NONE MORPHOLOGY COMMENT (test code = MOC) TEST NOT PERFORMED PLATELET ESTIMATE (test code = PLTEST) SLIGHTLY DECREASED PLATELET MORPHOLOGY (test code = PLTMORPH) NORMAL CBC W/MANUAL [id number] 04:07:00* Test Item Value Reference Range Interpretation Comments WHITE BLOOD CELL (test code = WBC) 18.3 K/mm3 4.5-12.5 H RED BLOOD CELL (test code = RBC) 3.45 mill/mm3 3.7-5.2 L HEMOGLOBIN (test code = HGB) 9.0 gram/dL 11.5-15.5 L HEMATOCRIT (test code = HCT) 30.8 % 36.0-46.0 L MEAN CELL VOLUME (test code = MCV) 89.3 fL 80-98 N MEAN CELL HGB (test code = MCH) 26.1 picogram 27.0-33.0 L MEAN CELL HGB CONCETRATION (test code = MCHC) 29.2 gram/dL 33.0-36. 0 L RED CELL DISTRIBUTION WIDTH (test code = RDW) 15.2 % 11.6-16. 2 N RED CELL DISTRIBUTION WIDTH SD (test code = RDW-SD) 49.5 fL 37 .0-51.0 N PLATELET COUNT (test code = PLT) 148 K/mm3 150-450 L MEAN PLATELET VOLUME (test code = MPV) 10.8 fL 6.7-11.0 N NEUTROPHIL % (test code = NT%) 85.6 % 39.0-69.0 H IMMATURE GRANULOCYTE % (test code = IG%) 6.9 % 0.0-5.0 H "The appearance of immature granulocytes (myelocytes,pro-myelocytes, meta-myelocytes) in the peripheral blood ofnon- individuals can indicate a response toinfection, inflammation, or other stimulus to the bonemarrow" LYMPHOCYTE % (test code = LY%) 3.9 % 25.0-55.0 L MONOCYTE % (test code = MO%) 2.4 % 0.0-10.0 N EOSINOPHIL % (test code = EO%) 1.0 % 0.0-5.0 N BASOPHIL % (test code = BA%) 0.2 % 0.0-1.0 N NUCLEATED RBC % (test code = NRBC%) 0.0 % 0-0 N NEUTROPHIL # (test code = NT#) 15.67 K/mm3 1.8-7.7 H IMMATURE GRANULOCYTE # (test code = IG#) 1.26 x10 3/uL 0-0.03 H LYMPHOCYTE # (test code = LY#) 0.72 K/mm3 1.0-5.0 L MONOCYTE # (test code = MO#) 0.44 K/mm3 0-0.8 N EOSINOPHIL # (test code = EO#) 0.19 K/mm3 0.0-0.5 N BASOPHIL # (test code = BA#) 0.04 K/mm3 0.0-0.2 N NUCLEATED RBC # (test code = NRBC#) 0.00 K/mm3 0.0-0.1 N MANUAL DIFF REQUIRED (test code = MDIFF) DIFF NEEDED STAIN ACCEPTABILITY (test code = STN ACCEPTABLE) TOTAL CELLS COUNTED (test code = TCC) #CELLS SEGMENTED NEUTROPHILS (test code = SEG) % 39-69 LYMPHOCYTE (test code = LYMPH) % 25-55 MONOCYTE (test code = MON) % 0-10 EOSINOPHIL (test code = EOS) % 0.0-5.0 CABOT RINGS (test code = CAB) MORPHOLOGY COMMENT (test code = MOC) PLATELET ESTIMATE (test code = PLTEST) PLATELET MORPHOLOGY (test code = PLTMORPH) CBC W/MANUAL [id number] 04:07:00* Test Item Value Reference Range Interpretation Comments WHITE BLOOD CELL (test code = WBC) 18.3 K/mm3 4.5-12.5 H RED BLOOD CELL (test code = RBC) 3.45 mill/mm3 3.7-5.2 L HEMOGLOBIN (test code = HGB) 9.0 gram/dL 11.5-15.5 L HEMATOCRIT (test code = HCT) 30.8 % 36.0-46.0 L MEAN CELL VOLUME (test code = MCV) 89.3 fL 80-98 N MEAN CELL HGB (test code = MCH) 26.1 picogram 27.0-33.0 L MEAN CELL HGB CONCETRATION (test code = MCHC) 29.2 gram/dL 33.0-36. 0 L RED CELL DISTRIBUTION WIDTH (test code = RDW) 15.2 % 11.6-16. 2 N RED CELL DISTRIBUTION WIDTH SD (test code = RDW-SD) 49.5 fL 37 .0-51.0 N PLATELET COUNT (test code = PLT) 148 K/mm3 150-450 L MEAN PLATELET VOLUME (test code = MPV) 10.8 fL 6.7-11.0 N NEUTROPHIL % (test code = NT%) 85.6 % 39.0-69.0 H IMMATURE GRANULOCYTE % (test code = IG%) 6.9 % 0.0-5.0 H "The appearance of immature granulocytes (myelocytes,pro-myelocytes, meta-myelocytes) in the peripheral blood ofnon- individuals can indicate a response toinfection, inflammation, or other stimulus to the bonemarrow" LYMPHOCYTE % (test code = LY%) 3.9 % 25.0-55.0 L MONOCYTE % (test code = MO%) 2.4 % 0.0-10.0 N EOSINOPHIL % (test code = EO%) 1.0 % 0.0-5.0 N BASOPHIL % (test code = BA%) 0.2 % 0.0-1.0 N NUCLEATED RBC % (test code = NRBC%) 0.0 % 0-0 N NEUTROPHIL # (test code = NT#) 15.67 K/mm3 1.8-7.7 H IMMATURE GRANULOCYTE # (test code = IG#) 1.26 x10 3/uL 0-0.03 H LYMPHOCYTE # (test code = LY#) 0.72 K/mm3 1.0-5.0 L MONOCYTE # (test code = MO#) 0.44 K/mm3 0-0.8 N EOSINOPHIL # (test code = EO#) 0.19 K/mm3 0.0-0.5 N BASOPHIL # (test code = BA#) 0.04 K/mm3 0.0-0.2 N NUCLEATED RBC # (test code = NRBC#) 0.00 K/mm3 0.0-0.1 N MANUAL DIFF REQUIRED (test code = MDIFF) DIFF NEEDED STAIN ACCEPTABILITY (test code = STN ACCEPTABLE) TOTAL CELLS COUNTED (test code = TCC) #CELLS SEGMENTED NEUTROPHILS (test code = SEG) % 39-69 LYMPHOCYTE (test code = LYMPH) % 25-55 MONOCYTE (test code = MON) % 0-10 EOSINOPHIL (test code = EOS) % 0.0-5.0 MORPHOLOGY COMMENT (test code = MOC) PLATELET ESTIMATE (test code = PLTEST) PLATELET MORPHOLOGY (test code = PLTMORPH) CBC W/MANUAL [id number] 04:07:00* Test Item Value Reference Range Interpretation Comments WHITE BLOOD CELL (test code = WBC) 18.3 K/mm3 4.5-12.5 H RED BLOOD CELL (test code = RBC) 3.45 mill/mm3 3.7-5.2 L HEMOGLOBIN (test code = HGB) 9.0 gram/dL 11.5-15.5 L HEMATOCRIT (test code = HCT) 30.8 % 36.0-46.0 L MEAN CELL VOLUME (test code = MCV) 89.3 fL 80-98 N MEAN CELL HGB (test code = MCH) 26.1 picogram 27.0-33.0 L MEAN CELL HGB CONCETRATION (test code = MCHC) 29.2 gram/dL 33.0-36. 0 L RED CELL DISTRIBUTION WIDTH (test code = RDW) 15.2 % 11.6-16. 2 N RED CELL DISTRIBUTION WIDTH SD (test code = RDW-SD) 49.5 fL 37 .0-51.0 N PLATELET COUNT (test code = PLT) 148 K/mm3 150-450 L MEAN PLATELET VOLUME (test code = MPV) 10.8 fL 6.7-11.0 N NEUTROPHIL % (test code = NT%) 85.6 % 39.0-69.0 H IMMATURE GRANULOCYTE % (test code = IG%) 6.9 % 0.0-5.0 H "The appearance of immature granulocytes (myelocytes,pro-myelocytes, meta-myelocytes) in the peripheral blood ofnon- individuals can indicate a response toinfection, inflammation, or other stimulus to the bon[place]" LYMPHOCYTE % (test code = LY%) 3.9 % 25.0-55.0 L MONOCYTE % (test code = MO%) 2.4 % 0.0-10.0 N EOSINOPHIL % (test code = EO%) 1.0 % 0.0-5.0 N BASOPHIL % (test code = BA%) 0.2 % 0.0-1.0 N NUCLEATED RBC % (test code = NRBC%) 0.0 % 0-0 N NEUTROPHIL # (test code = NT#) 15.67 K/mm3 1.8-7.7 H IMMATURE GRANULOCYTE # (test code = IG#) 1.26 x10 3/uL 0-0.03 H LYMPHOCYTE # (test code = LY#) 0.72 K/mm3 1.0-5.0 L MONOCYTE # (test code = MO#) 0.44 K/mm3 0-0.8 N EOSINOPHIL # (test code = EO#) 0.19 K/mm3 0.0-0.5 N BASOPHIL # (test code = BA#) 0.04 K/mm3 0.0-0.2 N NUCLEATED RBC # (test code = NRBC#) 0.00 K/mm3 0.0-0.1 N MANUAL DIFF REQUIRED (test code = MDIFF) DIFF NEEDED STAIN ACCEPTABILITY (test code = STN ACCEPTABLE) TOTAL CELLS COUNTED (test code = TCC) #CELLS SEGMENTED NEUTROPHILS (test code = SEG) % 39-69 LYMPHOCYTE (test code = LYMPH) % 25-55 MONOCYTE (test code = MON) % 0-10 MORPHOLOGY COMMENT (test code = MOC) PLATELET ESTIMATE (test code = PLTEST) PLATELET MORPHOLOGY (test code = PLTMORPH) CBC W/MANUAL [id number] 04:06:00* Test Item Value Reference Range Interpretation Comments WHITE BLOOD CELL (test code = WBC) 18.3 K/mm3 4.5-12.5 H RED BLOOD CELL (test code = RBC) 3.45 mill/mm3 3.7-5.2 L HEMOGLOBIN (test code = HGB) 9.0 gram/dL 11.5-15.5 L HEMATOCRIT (test code = HCT) 30.8 % 36.0-46.0 L MEAN CELL VOLUME (test code = MCV) 89.3 fL 80-98 N MEAN CELL HGB (test code = MCH) 26.1 picogram 27.0-33.0 L MEAN CELL HGB CONCETRATION (test code = MCHC) 29.2 gram/dL 33.0-36. 0 L RED CELL DISTRIBUTION WIDTH (test code = RDW) 15.2 % 11.6-16. 2 N RED CELL DISTRIBUTION WIDTH SD (test code = RDW-SD) 49.5 fL 37 .0-51.0 N PLATELET COUNT (test code = PLT) 148 K/mm3 150-450 L MEAN PLATELET VOLUME (test code = MPV) 10.8 fL 6.7-11.0 N NEUTROPHIL % (test code = NT%) 85.6 % 39.0-69.0 H IMMATURE GRANULOCYTE % (test code = IG%) 6.9 % 0.0-5.0 H "The appearance of immature granulocytes (myelocytes,pro-myelocytes, meta-myelocytes) in the peripheral blood ofnon- individuals can indicate a response toinfection, inflammation, or other stimulus to the bonemarrow" LYMPHOCYTE % (test code = LY%) 3.9 % 25.0-55.0 L MONOCYTE % (test code = MO%) 2.4 % 0.0-10.0 N EOSINOPHIL % (test code = EO%) 1.0 % 0.0-5.0 N BASOPHIL % (test code = BA%) 0.2 % 0.0-1.0 N NUCLEATED RBC % (test code = NRBC%) 0.0 % 0-0 N NEUTROPHIL # (test code = NT#) 15.67 K/mm3 1.8-7.7 H IMMATURE GRANULOCYTE # (test code = IG#) 1.26 x10 3/uL 0-0.03 H LYMPHOCYTE # (test code = LY#) 0.72 K/mm3 1.0-5.0 L MONOCYTE # (test code = MO#) 0.44 K/mm3 0-0.8 N EOSINOPHIL # (test code = EO#) 0.19 K/mm3 0.0-0.5 N BASOPHIL # (test code = BA#) 0.04 K/mm3 0.0-0.2 N NUCLEATED RBC # (test code = NRBC#) 0.00 K/mm3 0.0-0.1 N MANUAL DIFF REQUIRED (test code = MDIFF) DIFF NEEDED STAIN ACCEPTABILITY (test code = STN ACCEPTABLE) TOTAL CELLS COUNTED (test code = TCC) #CELLS SEGMENTED NEUTROPHILS (test code = SEG) % 39-69 LYMPHOCYTE (test code = LYMPH) % 25-55 MONOCYTE (test code = MON) % 0-10 EOSINOPHIL (test code = EOS) % 0.0-5.0 CABOT RINGS (test code = CAB) MORPHOLOGY COMMENT (test code = MOC) PLATELET ESTIMATE (test code = PLTEST) PLATELET MORPHOLOGY (test code = PLTMORPH) CBC W/MANUAL [id number] 04:06:00* Test Item Value Reference Range Interpretation Comments WHITE BLOOD CELL (test code = WBC) 18.3 K/mm3 4.5-12.5 H RED BLOOD CELL (test code = RBC) 3.45 mill/mm3 3.7-5.2 L HEMOGLOBIN (test code = HGB) 9.0 gram/dL 11.5-15.5 L HEMATOCRIT (test code = HCT) 30.8 % 36.0-46.0 L MEAN CELL VOLUME (test code = MCV) 89.3 fL 80-98 N MEAN CELL HGB (test code = MCH) 26.1 picogram 27.0-33.0 L MEAN CELL HGB CONCETRATION (test code = MCHC) 29.2 gram/dL 33.0-36. 0 L RED CELL DISTRIBUTION WIDTH (test code = RDW) 15.2 % 11.6-16. 2 N RED CELL DISTRIBUTION WIDTH SD (test code = RDW-SD) 49.5 fL 37 .0-51.0 N PLATELET COUNT (test code = PLT) 148 K/mm3 150-450 L MEAN PLATELET VOLUME (test code = MPV) 10.8 fL 6.7-11.0 N NEUTROPHIL % (test code = NT%) 85.6 % 39.0-69.0 H IMMATURE GRANULOCYTE % (test code = IG%) 6.9 % 0.0-5.0 H "The appearance of immature granulocytes (myelocytes,pro-myelocytes, meta-myelocytes) in the peripheral blood ofnon- individuals can indicate a response toinfection, inflammation, or other stimulus to the bonemarrow" LYMPHOCYTE % (test code = LY%) 3.9 % 25.0-55.0 L MONOCYTE % (test code = MO%) 2.4 % 0.0-10.0 N EOSINOPHIL % (test code = EO%) 1.0 % 0.0-5.0 N BASOPHIL % (test code = BA%) 0.2 % 0.0-1.0 N NUCLEATED RBC % (test code = NRBC%) 0.0 % 0-0 N NEUTROPHIL # (test code = NT#) 15.67 K/mm3 1.8-7.7 H IMMATURE GRANULOCYTE # (test code = IG#) 1.26 x10 3/uL 0-0.03 H LYMPHOCYTE # (test code = LY#) 0.72 K/mm3 1.0-5.0 L MONOCYTE # (test code = MO#) 0.44 K/mm3 0-0.8 N EOSINOPHIL # (test code = EO#) 0.19 K/mm3 0.0-0.5 N BASOPHIL # (test code = BA#) 0.04 K/mm3 0.0-0.2 N NUCLEATED RBC # (test code = NRBC#) 0.00 K/mm3 0.0-0.1 N MANUAL DIFF REQUIRED (test code = MDIFF) DIFF NEEDED STAIN ACCEPTABILITY (test code = STN ACCEPTABLE) TOTAL CELLS COUNTED (test code = TCC) #CELLS SEGMENTED NEUTROPHILS (test code = SEG) % 39-69 LYMPHOCYTE (test code = LYMPH) % 25-55 MONOCYTE (test code = MON) % 0-10 EOSINOPHIL (test code = EOS) % 0.0-5.0 CABOT RINGS (test code = CAB) MORPHOLOGY COMMENT (test code = MOC) PLATELET ESTIMATE (test code = PLTEST) PLATELET MORPHOLOGY (test code = PLTMORPH) BASIC METABOLIC [id number] 15:09:00* Test Item Value Reference Range Interpretation Comments SODIUM (test code = NA) 147 mmol/L 136-145 H POTASSIUM (test code = K) 3.9 mmol/L 3.5-5.1 N CHLORIDE (test code = CL) 116.0 mmol/L 98-107 H CARBON DIOXIDE (test code = CO2) 22.0 mmol/L 21-32 N ANION GAP (test code = GAP) 12.9 10-20 N GLUCOSE (test code = GLU) 92 mg/dL 74-106 N BLOOD UREA NITROGEN (test code = BUN) 32 mg/dL 7-18 H GLOMERULAR FILTRATION RATE (test code = GFR) 28 mL/min >=60 Estimated GFR by using Modified MDRD formula.Chronic kidney disease is defined as either kidney damageor GFR <60 mL/min/1.73 m2 for >3 months. CREATININE (test code = CREAT) 1.80 mg/dL 0.55-1.02 H Note change in reference range due to change in reagent. BUN/CREATININE RATIO (test code = BUN/CREA) 17.8 10-20 N CALCIUM (test code = CA) 7.4 mg/dL 8.5-10.1 L [id number] 15:09:00* Test Item Value Reference Range Interpretation Comments PHOSPHORUS (test code = PHOS) 3.6 mg/dL 2.5-4.9 N [id number] 15:09:00* Test Item Value Reference Range Interpretation Comments MAGNESIUM (test code = MAG) 2.3 mg/dL 1.8-2.4 N BASIC METABOLIC [id number] 15:03:00* Test Item Value Reference Range Interpretation Comments SODIUM (test code = NA) 147 mmol/L 136-145 H POTASSIUM (test code = K) 3.9 mmol/L 3.5-5.1 N CHLORIDE (test code = CL) 116.0 mmol/L 98-107 H CARBON DIOXIDE (test code = CO2) mmol/L 21-32 ANION GAP (test code = GAP) 10-20 GLUCOSE (test code = GLU) mg/dL 74-106 BLOOD UREA NITROGEN (test code = BUN) mg/dL 7-18 GLOMERULAR FILTRATION RATE (test code = GFR) mL/min >=60 CREATININE (test code = CREAT) mg/dL 0.55-1.02 BUN/CREATININE RATIO (test code = BUN/CREA) 10-20 CALCIUM (test code = CA) mg/dL 8.5-10.1 [id number] 15:03:00* Test Item Value Reference Range Interpretation Comments PHOSPHORUS (test code = PHOS) mg/dL 2.5-4.9 [id number] 15:03:00* Test Item Value Reference Range Interpretation Comments MAGNESIUM (test code = MAG) mg/dL 1.8-2.4 [id number] 13:05:00* Test Item Value Reference Range Interpretation Comments TROPONIN-I (test code = TROPI) 0.037 ng/mL 0-0.045 N COMMENTS TO LANDSCAPE ARCHITECTURE PROFESSOR: COLLECT 3 HOURS AFTER PREVIOUS [id number] 10:40:00* Test Item Value Reference Range Interpretation Comments TROPONIN-I (test code = TROPI) 0.049 ng/mL 0-0.045 HH Results called to [id number] by [email or web address] 03/01/20 1040Critical results verified and read back by Nurse? YES [id number] 08:33:00* Test Item Value Reference Range Interpretation Comments TROPONIN-I (test code = TROPI) 0.068 ng/mL 0-0.045 HH Results called to [id number] by [email or web address] 03/01/20 0833Critical results verified and read back by Nurse? YES COMMENTS TO LANDSCAPE ARCHITECTURE PROFESSOR: COLLECT 3 HOURS AFTER PREVIOUS SAMPLELIPID PROFILE (CORONARY RISK)2020-03-01 03:48:00* Test Item Value Reference Range Interpretation Comments TRIGLYCERIDES (test code = TRIG) 112 mg/dL 20-150 N CHOLESTEROL (test code = CHOL) 62 mg/dL 0-200 N CHOLESTEROL/HDL RATIO (test code = CHOLHDL) 2.0 RATIO 0-4.9 N RISK ASSOCIATED WITH CHOL/HDL RATIOS: Risk Male Female1/2 AVERAGE 3.43 3.27AVERAGE 4.97 4.442X AVERAGE 9.55 7.053X AVERAGE 23.39 11.04 REFERENCE VALUE IS RELATED TO RISK LEVELS ASRECOMMENDED BY THE [facility]. HEART, LUNG, AND BLOOD INST. HDL CHOLESTEROL (test code = HDL) 22 mg/dL 40-60 L LIPOPROTEIN LDL (test code = LDL) 17 mg/dL 100-129 L Reference Interval: mg/dL mmol/L Optimal <100 <2.6Near/above optimal 100-129 2.6- 3.3Borderline High 130-159 3.4-4.1High 160-189 4.1-4.9Very High >=190 >=4.9========= This LDL result is a direct measurement.========= BASIC METABOLIC [id number] 03:39:00* Test Item Value Reference Range Interpretation Comments SODIUM (test code = NA) 146 mmol/L 136-145 H POTASSIUM (test code = K) 3.6 mmol/L 3.5-5.1 N CHLORIDE (test code = CL) 118.0 mmol/L 98-107 H CARBON DIOXIDE (test code = CO2) 21.0 mmol/L 21-32 N ANION GAP (test code = GAP) 10.6 10-20 N GLUCOSE (test code = GLU) 131 mg/dL 74-106 H BLOOD UREA NITROGEN (test code = BUN) 30 mg/dL 7-18 H GLOMERULAR FILTRATION RATE (test code = GFR) 23 mL/min >=60 Estimated GFR by using Modified MDRD formula.Chronic kidney disease is defined as either kidney damageor GFR <60 mL/min/1.73 m2 for >3 months. CREATININE (test code = CREAT) 2.10 mg/dL 0.55-1.02 H Note change in reference range due to change in reagent. BUN/CREATININE RATIO (test code = BUN/CREA) 14.3 10-20 N CALCIUM (test code = CA) 6.8 mg/dL 8.5-10.1 L [id number] 03:39:00* Test Item Value Reference Range Interpretation Comments PHOSPHORUS (test code = PHOS) 3.5 mg/dL 2.5-4.9 N [id number] 03:39:00* Test Item Value Reference Range Interpretation Comments MAGNESIUM (test code = MAG) 1.6 mg/dL 1.8-2.4 L CALCIUM [id number] 03:39:00* Test Item Value Reference Range Interpretation Comments CALCIUM IONIZED (test code = OCHOA) 1.07 mmol/L 1.12-1.32 L BASIC METABOLIC [id number] 03:19:00* Test Item Value Reference Range Interpretation Comments SODIUM (test code = NA) 146 mmol/L 136-145 H POTASSIUM (test code = K) 3.6 mmol/L 3.5-5.1 N CHLORIDE (test code = CL) 118.0 mmol/L 98-107 H CARBON DIOXIDE (test code = CO2) 21.0 mmol/L 21-32 N ANION GAP (test code = GAP) 10.6 10-20 N GLUCOSE (test code = GLU) 131 mg/dL 74-106 H BLOOD UREA NITROGEN (test code = BUN) 30 mg/dL 7-18 H GLOMERULAR FILTRATION RATE (test code = GFR) 23 mL/min >=60 Estimated GFR by using Modified MDRD formula.Chronic kidney disease is defined as either kidney damageor GFR <60 mL/min/1.73 m2 for >3 months. CREATININE (test code = CREAT) 2.10 mg/dL 0.55-1.02 H Note change in reference range due to change in reagent. BUN/CREATININE RATIO (test code = BUN/CREA) 14.3 10-20 N CALCIUM (test code = CA) 6.8 mg/dL 8.5-10.1 L [id number] 03:19:00* Test Item Value Reference Range Interpretation Comments PHOSPHORUS (test code = PHOS) 3.5 mg/dL 2.5-4.9 N [id number] 03:19:00* Test Item Value Reference Range Interpretation Comments MAGNESIUM (test code = MAG) 1.6 mg/dL 1.8-2.4 L CALCIUM [id number] 03:19:00* Test Item Value Reference Range Interpretation Comments CALCIUM IONIZED (test code = OCHOA) mmol/L 1.12-1.32 BASIC METABOLIC [id number] 03:15:00* Test Item Value Reference Range Interpretation Comments SODIUM (test code = NA) 146 mmol/L 136-145 H POTASSIUM (test code = K) 3.6 mmol/L 3.5-5.1 N CHLORIDE (test code = CL) 118.0 mmol/L 98-107 H CARBON DIOXIDE (test code = CO2) mmol/L 21-32 ANION GAP (test code = GAP) 10-20 GLUCOSE (test code = GLU) mg/dL 74-106 BLOOD UREA NITROGEN (test code = BUN) mg/dL 7-18 GLOMERULAR FILTRATION RATE (test code = GFR) mL/min >=60 CREATININE (test code = CREAT) mg/dL 0.55-1.02 BUN/CREATININE RATIO (test code = BUN/CREA) 10-20 CALCIUM (test code = CA) 6.8 mg/dL 8.5-10.1 L [id number] 03:15:00* Test Item Value Reference Range Interpretation Comments PHOSPHORUS (test code = PHOS) mg/dL 2.5-4.9 [id number] 03:15:00* Test Item Value Reference Range Interpretation Comments MAGNESIUM (test code = MAG) mg/dL 1.8-2.4 CALCIUM [id number] 03:15:00* Test Item Value Reference Range Interpretation Comments CALCIUM IONIZED (test code = OCHOA) mmol/L 1.12-1.32 CBC W/MANUAL [id number] 03:13:00* Test Item Value Reference Range Interpretation Comments WHITE BLOOD CELL (test code = WBC) 26.9 K/mm3 4.5-12.5 H RED BLOOD CELL (test code = RBC) 3.69 mill/mm3 3.7-5.2 L HEMOGLOBIN (test code = HGB) 9.8 gram/dL 11.5-15.5 L HEMATOCRIT (test code = HCT) 32.8 % 36.0-46.0 L MEAN CELL VOLUME (test code = MCV) 88.9 fL 80-98 N MEAN CELL HGB (test code = MCH) 26.6 picogram 27.0-33.0 L MEAN CELL HGB CONCETRATION (test code = MCHC) 29.9 gram/dL 33.0-36. 0 L RED CELL DISTRIBUTION WIDTH (test code = RDW) 14.7 % 11.6-16. 2 N RED CELL DISTRIBUTION WIDTH SD (test code = RDW-SD) 47.8 fL 37 .0-51.0 N PLATELET COUNT (test code = PLT) 170 K/mm3 150-450 N MEAN PLATELET VOLUME (test code = MPV) 9.7 fL 6.7-11.0 N NEUTROPHIL % (test code = NT%) 88.1 % 39.0-69.0 H IMMATURE GRANULOCYTE % (test code = IG%) 6.2 % 0.0-5.0 H "The appearance of immature granulocytes (myelocytes,pro-myelocytes, meta-myelocytes) in the peripheral blood ofnon- individuals can indicate a response toinfection, inflammation, or other stimulus to the bonemarrow" LYMPHOCYTE % (test code = LY%) 2.5 % 25.0-55.0 L MONOCYTE % (test code = MO%) 2.9 % 0.0-10.0 N EOSINOPHIL % (test code = EO%) 0.0 % 0.0-5.0 N BASOPHIL % (test code = BA%) 0.3 % 0.0-1.0 N NUCLEATED RBC % (test code = NRBC%) 0.0 % 0-0 N NEUTROPHIL # (test code = NT#) 23.70 K/mm3 1.8-7.7 H IMMATURE GRANULOCYTE # (test code = IG#) 1.66 x10 3/uL 0-0.03 H LYMPHOCYTE # (test code = LY#) 0.68 K/mm3 1.0-5.0 L MONOCYTE # (test code = MO#) 0.78 K/mm3 0-0.8 N EOSINOPHIL # (test code = EO#) 0.01 K/mm3 0.0-0.5 N BASOPHIL # (test code = BA#) 0.07 K/mm3 0.0-0.2 N NUCLEATED RBC # (test code = NRBC#) 0.00 K/mm3 0.0-0.1 N MANUAL DIFF REQUIRED (test code = MDIFF) DIFF NEEDED STAIN ACCEPTABILITY (test code = STN ACCEPTABLE) STAIN ACCEPTABLE TOTAL CELLS COUNTED (test code = TCC) 115 #CELLS SEGMENTED NEUTROPHILS (test code = SEG) 81.7 % 39-69 H BAND NEUTROPHIL (test code = BAND) 13.0 % 0-10 H LYMPHOCYTE (test code = LYMPH) 0.9 % 25-55 L REACTIVE LYMPH (test code = RELYMPH) 0 % MONOCYTE (test code = MON) 0 % 0-10 N EOSINOPHIL (test code = EOS) 0 % 0.0-5.0 N BASOPHIL (test code = BASO) 0 % 0-1.0 N METAMYELOCYTE (test code = META) 4.4 % 0-0 H MYELOCYTE (test code = MYELO) 0 % 0.0-0.0 N PROMYELOCYTE (test code = PROM) 0 % 0-0 N POIKILOCYTOSIS (test code = POIK) 1+ ANISOCYTOSIS (test code = ANISO) 1+ OVALOCYTES (test code = OVAL) 1+ MORPHOLOGY COMMENT (test code = MOC) TEST NOT PERFORMED PLATELET ESTIMATE (test code = PLTEST) ADEQUATE PLATELET MORPHOLOGY (test code = PLTMORPH) NORMAL IMMATURE FORMS (test code = IMMAT) 0 % 0-0 N CBC W/MANUAL [id number] 02:50:00* Test Item Value Reference Range Interpretation Comments WHITE BLOOD CELL (test code = WBC) 26.9 K/mm3 4.5-12.5 H RED BLOOD CELL (test code = RBC) 3.69 mill/mm3 3.7-5.2 L HEMOGLOBIN (test code = HGB) 9.8 gram/dL 11.5-15.5 L HEMATOCRIT (test code = HCT) 32.8 % 36.0-46.0 L MEAN CELL VOLUME (test code = MCV) 88.9 fL 80-98 N MEAN CELL HGB (test code = MCH) 26.6 picogram 27.0-33.0 L MEAN CELL HGB CONCETRATION (test code = MCHC) 29.9 gram/dL 33.0-36. 0 L RED CELL DISTRIBUTION WIDTH (test code = RDW) 14.7 % 11.6-16. 2 N RED CELL DISTRIBUTION WIDTH SD (test code = RDW-SD) 47.8 fL 37 .0-51.0 N PLATELET COUNT (test code = PLT) 170 K/mm3 150-450 N MEAN PLATELET VOLUME (test code = MPV) 9.7 fL 6.7-11.0 N NEUTROPHIL % (test code = NT%) 88.1 % 39.0-69.0 H IMMATURE GRANULOCYTE % (test code = IG%) 6.2 % 0.0-5.0 H "The appearance of immature granulocytes (myelocytes,pro-myelocytes, meta-myelocytes) in the peripheral blood ofnon- individuals can indicate a response toinfection, inflammation, or other stimulus to the bonemarrow" LYMPHOCYTE % (test code = LY%) 2.5 % 25.0-55.0 L MONOCYTE % (test code = MO%) 2.9 % 0.0-10.0 N EOSINOPHIL % (test code = EO%) 0.0 % 0.0-5.0 N BASOPHIL % (test code = BA%) 0.3 % 0.0-1.0 N NUCLEATED RBC % (test code = NRBC%) 0.0 % 0-0 N NEUTROPHIL # (test code = NT#) 23.70 K/mm3 1.8-7.7 H IMMATURE GRANULOCYTE # (test code = IG#) 1.66 x10 3/uL 0-0.03 H LYMPHOCYTE # (test code = LY#) 0.68 K/mm3 1.0-5.0 L MONOCYTE # (test code = MO#) 0.78 K/mm3 0-0.8 N EOSINOPHIL # (test code = EO#) 0.01 K/mm3 0.0-0.5 N BASOPHIL # (test code = BA#) 0.07 K/mm3 0.0-0.2 N NUCLEATED RBC # (test code = NRBC#) 0.00 K/mm3 0.0-0.1 N MANUAL DIFF REQUIRED (test code = MDIFF) DIFF NEEDED STAIN ACCEPTABILITY (test code = STN ACCEPTABLE) TOTAL CELLS COUNTED (test code = TCC) #CELLS SEGMENTED NEUTROPHILS (test code = SEG) % 39-69 LYMPHOCYTE (test code = LYMPH) % 25-55 MONOCYTE (test code = MON) % 0-10 MORPHOLOGY COMMENT (test code = MOC) PLATELET ESTIMATE (test code = PLTEST) PLATELET MORPHOLOGY (test code = PLTMORPH) CBC W/MANUAL [id number] 02:47:00* Test Item Value Reference Range Interpretation Comments WHITE BLOOD CELL (test code = WBC) 26.9 K/mm3 4.5-12.5 H RED BLOOD CELL (test code = RBC) 3.69 mill/mm3 3.7-5.2 L HEMOGLOBIN (test code = HGB) 9.8 gram/dL 11.5-15.5 L HEMATOCRIT (test code = HCT) 32.8 % 36.0-46.0 L MEAN CELL VOLUME (test code = MCV) 88.9 fL 80-98 N MEAN CELL HGB (test code = MCH) 26.6 picogram 27.0-33.0 L MEAN CELL HGB CONCETRATION (test code = MCHC) 29.9 gram/dL 33.0-36. 0 L RED CELL DISTRIBUTION WIDTH (test code = RDW) 14.7 % 11.6-16. 2 N RED CELL DISTRIBUTION WIDTH SD (test code = RDW-SD) 47.8 fL 37 .0-51.0 N PLATELET COUNT (test code = PLT) 170 K/mm3 150-450 N MEAN PLATELET VOLUME (test code = MPV) 9.7 fL 6.7-11.0 N NEUTROPHIL % (test code = NT%) 88.1 % 39.0-69.0 H IMMATURE GRANULOCYTE % (test code = IG%) 6.2 % 0.0-5.0 H "The appearance of immature granulocytes (myelocytes,pro-myelocytes, meta-myelocytes) in the peripheral blood ofnon- individuals can indicate a response toinfection, inflammation, or other stimulus to the bonemarrow" LYMPHOCYTE % (test code = LY%) 2.5 % 25.0-55.0 L MONOCYTE % (test code = MO%) 2.9 % 0.0-10.0 N EOSINOPHIL % (test code = EO%) 0.0 % 0.0-5.0 N BASOPHIL % (test code = BA%) 0.3 % 0.0-1.0 N NUCLEATED RBC % (test code = NRBC%) 0.0 % 0-0 N NEUTROPHIL # (test code = NT#) 23.70 K/mm3 1.8-7.7 H IMMATURE GRANULOCYTE # (test code = IG#) 1.66 x10 3/uL 0-0.03 H LYMPHOCYTE # (test code = LY#) 0.68 K/mm3 1.0-5.0 L MONOCYTE # (test code = MO#) 0.78 K/mm3 0-0.8 N EOSINOPHIL # (test code = EO#) 0.01 K/mm3 0.0-0.5 N BASOPHIL # (test code = BA#) 0.07 K/mm3 0.0-0.2 N NUCLEATED RBC # (test code = NRBC#) 0.00 K/mm3 0.0-0.1 N MANUAL DIFF REQUIRED (test code = MDIFF) DIFF NEEDED STAIN ACCEPTABILITY (test code = STN ACCEPTABLE) TOTAL CELLS COUNTED (test code = TCC) #CELLS SEGMENTED NEUTROPHILS (test code = SEG) % 39-69 LYMPHOCYTE (test code = LYMPH) % 25-55 MONOCYTE (test code = MON) % 0-10 EOSINOPHIL (test code = EOS) % 0.0-5.0 CABOT RINGS (test code = CAB) MORPHOLOGY COMMENT (test code = MOC) PLATELET ESTIMATE (test code = PLTEST) PLATELET MORPHOLOGY (test code = PLTMORPH) CBC W/MANUAL [id number] 02:47:00* Test Item Value Reference Range Interpretation Comments WHITE BLOOD CELL (test code = WBC) 26.9 K/mm3 4.5-12.5 H RED BLOOD CELL (test code = RBC) 3.69 mill/mm3 3.7-5.2 L HEMOGLOBIN (test code = HGB) 9.8 gram/dL 11.5-15.5 L HEMATOCRIT (test code = HCT) 32.8 % 36.0-46.0 L MEAN CELL VOLUME (test code = MCV) 88.9 fL 80-98 N MEAN CELL HGB (test code = MCH) 26.6 picogram 27.0-33.0 L MEAN CELL HGB CONCETRATION (test code = MCHC) 29.9 gram/dL 33.0-36. 0 L RED CELL DISTRIBUTION WIDTH (test code = RDW) 14.7 % 11.6-16. 2 N RED CELL DISTRIBUTION WIDTH SD (test code = RDW-SD) 47.8 fL 37 .0-51.0 N PLATELET COUNT (test code = PLT) 170 K/mm3 150-450 N MEAN PLATELET VOLUME (test code = MPV) 9.7 fL 6.7-11.0 N NEUTROPHIL % (test code = NT%) 88.1 % 39.0-69.0 H IMMATURE GRANULOCYTE % (test code = IG%) 6.2 % 0.0-5.0 H "The appearance of immature granulocytes (myelocytes,pro-myelocytes, meta-myelocytes) in the peripheral blood ofnon- individuals can indicate a response toinfection, inflammation, or other stimulus to the bonemarrow" LYMPHOCYTE % (test code = LY%) 2.5 % 25.0-55.0 L MONOCYTE % (test code = MO%) 2.9 % 0.0-10.0 N EOSINOPHIL % (test code = EO%) 0.0 % 0.0-5.0 N BASOPHIL % (test code = BA%) 0.3 % 0.0-1.0 N NUCLEATED RBC % (test code = NRBC%) 0.0 % 0-0 N NEUTROPHIL # (test code = NT#) 23.70 K/mm3 1.8-7.7 H IMMATURE GRANULOCYTE # (test code = IG#) 1.66 x10 3/uL 0-0.03 H LYMPHOCYTE # (test code = LY#) 0.68 K/mm3 1.0-5.0 L MONOCYTE # (test code = MO#) 0.78 K/mm3 0-0.8 N EOSINOPHIL # (test code = EO#) 0.01 K/mm3 0.0-0.5 N BASOPHIL # (test code = BA#) 0.07 K/mm3 0.0-0.2 N NUCLEATED RBC # (test code = NRBC#) 0.00 K/mm3 0.0-0.1 N MANUAL DIFF REQUIRED (test code = MDIFF) DIFF NEEDED STAIN ACCEPTABILITY (test code = STN ACCEPTABLE) TOTAL CELLS COUNTED (test code = TCC) #CELLS SEGMENTED NEUTROPHILS (test code = SEG) % 39-69 LYMPHOCYTE (test code = LYMPH) % 25-55 MONOCYTE (test code = MON) % 0-10 EOSINOPHIL (test code = EOS) % 0.0-5.0 CABOT RINGS (test code = CAB) MORPHOLOGY COMMENT (test code = MOC) PLATELET ESTIMATE (test code = PLTEST) PLATELET MORPHOLOGY (test code = PLTMORPH) CBC W/MANUAL [id number] 02:47:00* Test Item Value Reference Range Interpretation Comments WHITE BLOOD CELL (test code = WBC) 26.9 K/mm3 4.5-12.5 H RED BLOOD CELL (test code = RBC) 3.69 mill/mm3 3.7-5.2 L HEMOGLOBIN (test code = HGB) 9.8 gram/dL 11.5-15.5 L HEMATOCRIT (test code = HCT) 32.8 % 36.0-46.0 L MEAN CELL VOLUME (test code = MCV) 88.9 fL 80-98 N MEAN CELL HGB (test code = MCH) 26.6 picogram 27.0-33.0 L MEAN CELL HGB CONCETRATION (test code = MCHC) 29.9 gram/dL 33.0-36. 0 L RED CELL DISTRIBUTION WIDTH (test code = RDW) 14.7 % 11.6-16. 2 N RED CELL DISTRIBUTION WIDTH SD (test code = RDW-SD) 47.8 fL 37 .0-51.0 N PLATELET COUNT (test code = PLT) 170 K/mm3 150-450 N MEAN PLATELET VOLUME (test code = MPV) 9.7 fL 6.7-11.0 N NEUTROPHIL % (test code = NT%) 88.1 % 39.0-69.0 H IMMATURE GRANULOCYTE % (test code = IG%) 6.2 % 0.0-5.0 H "The appearance of immature granulocytes (myelocytes,pro-myelocytes, meta-myelocytes) in the peripheral blood ofnon- individuals can indicate a response toinfection, inflammation, or other stimulus to the bonemarrow" LYMPHOCYTE % (test code = LY%) 2.5 % 25.0-55.0 L MONOCYTE % (test code = MO%) 2.9 % 0.0-10.0 N EOSINOPHIL % (test code = EO%) 0.0 % 0.0-5.0 N BASOPHIL % (test code = BA%) 0.3 % 0.0-1.0 N NUCLEATED RBC % (test code = NRBC%) 0.0 % 0-0 N NEUTROPHIL # (test code = NT#) 23.70 K/mm3 1.8-7.7 H IMMATURE GRANULOCYTE # (test code = IG#) 1.66 x10 3/uL 0-0.03 H LYMPHOCYTE # (test code = LY#) 0.68 K/mm3 1.0-5.0 L MONOCYTE # (test code = MO#) 0.78 K/mm3 0-0.8 N EOSINOPHIL # (test code = EO#) 0.01 K/mm3 0.0-0.5 N BASOPHIL # (test code = BA#) 0.07 K/mm3 0.0-0.2 N NUCLEATED RBC # (test code = NRBC#) 0.00 K/mm3 0.0-0.1 N MANUAL DIFF REQUIRED (test code = MDIFF) DIFF NEEDED STAIN ACCEPTABILITY (test code = STN ACCEPTABLE) TOTAL CELLS COUNTED (test code = TCC) #CELLS SEGMENTED NEUTROPHILS (test code = SEG) % 39-69 LYMPHOCYTE (test code = LYMPH) % 25-55 MONOCYTE (test code = MON) % 0-10 EOSINOPHIL (test code = EOS) % 0.0-5.0 MORPHOLOGY COMMENT (test code = MOC) PLATELET ESTIMATE (test code = PLTEST) PLATELET MORPHOLOGY (test code = PLTMORPH) CBC W/MANUAL [id number] 02:47:00* Test Item Value Reference Range Interpretation Comments WHITE BLOOD CELL (test code = WBC) 26.9 K/mm3 4.5-12.5 H RED BLOOD CELL (test code = RBC) 3.69 mill/mm3 3.7-5.2 L HEMOGLOBIN (test code = HGB) 9.8 gram/dL 11.5-15.5 L HEMATOCRIT (test code = HCT) 32.8 % 36.0-46.0 L MEAN CELL VOLUME (test code = MCV) 88.9 fL 80-98 N MEAN CELL HGB (test code = MCH) 26.6 picogram 27.0-33.0 L MEAN CELL HGB CONCETRATION (test code = MCHC) 29.9 gram/dL 33.0-36. 0 L RED CELL DISTRIBUTION WIDTH (test code = RDW) 14.7 % 11.6-16. 2 N RED CELL DISTRIBUTION WIDTH SD (test code = RDW-SD) 47.8 fL 37 .0-51.0 N PLATELET COUNT (test code = PLT) 170 K/mm3 150-450 N MEAN PLATELET VOLUME (test code = MPV) 9.7 fL 6.7-11.0 N NEUTROPHIL % (test code = NT%) 88.1 % 39.0-69.0 H IMMATURE GRANULOCYTE % (test code = IG%) 6.2 % 0.0-5.0 H "The appearance of immature granulocytes (myelocytes,pro-myelocytes, meta-myelocytes) in the peripheral blood ofnon- individuals can indicate a response toinfection, inflammation, or other stimulus to the bon[place]arrow" LYMPHOCYTE % (test code = LY%) 2.5 % 25.0-55.0 L MONOCYTE % (test code = MO%) 2.9 % 0.0-10.0 N EOSINOPHIL % (test code = EO%) 0.0 % 0.0-5.0 N BASOPHIL % (test code = BA%) 0.3 % 0.0-1.0 N NUCLEATED RBC % (test code = NRBC%) 0.0 % 0-0 N NEUTROPHIL # (test code = NT#) 23.70 K/mm3 1.8-7.7 H IMMATURE GRANULOCYTE # (test code = IG#) 1.66 x10 3/uL 0-0.03 H LYMPHOCYTE # (test code = LY#) 0.68 K/mm3 1.0-5.0 L MONOCYTE # (test code = MO#) 0.78 K/mm3 0-0.8 N EOSINOPHIL # (test code = EO#) 0.01 K/mm3 0.0-0.5 N BASOPHIL # (test code = BA#) 0.07 K/mm3 0.0-0.2 N NUCLEATED RBC # (test code = NRBC#) 0.00 K/mm3 0.0-0.1 N MANUAL DIFF REQUIRED (test code = MDIFF) DIFF NEEDED STAIN ACCEPTABILITY (test code = STN ACCEPTABLE) TOTAL CELLS COUNTED (test code = TCC) #CELLS SEGMENTED NEUTROPHILS (test code = SEG) % 39-69 LYMPHOCYTE (test code = LYMPH) % 25-55 MONOCYTE (test code = MON) % 0-10 EOSINOPHIL (test code = EOS) % 0.0-5.0 CABOT RINGS (test code = CAB) MORPHOLOGY COMMENT (test code = MOC) PLATELET ESTIMATE (test code = PLTEST) PLATELET MORPHOLOGY (test code = PLTMORPH) URINALYSIS [id number] 22:37:00* Test Item Value Reference Range Interpretation Comments UA COLOR (test code = COLU) Dark-Yellow YELLOW UA APPEARANCE (test code = APPU) TURBID CLEAR A UA GLUCOSE DIPSTICK (test code = DGLUU) NEGATIVE mg/dL NEGATIVE UA BILIRUBIN DIPSTICK (test code = BILU) NEGATIVE mg/dL NEGATIVE UA KETONE DIPSTICK (test code = KETU) NEGATIVE mg/dL NEGATIVE UA SPECIFIC GRAVITY (test code = SGU) 1.018 1.001-1.035 UA BLOOD DIPSTICK (test code = VU) 1.0 mg/dL (3+) mg/dL NEGATIVE A UA PH DIPSTICK (test code = NIDHI) 6.0 5.0-8.0 UA PROTEIN DIPSTICK (test code = PROU) 300 (3+) mg/dL NEGATIVE A UA UROBILINIOGEN DIPSTICK (test code = URO) Normal mg/dL NEGATIVE UA NITRITE DIPSTICK (test code = DENISE) NEGATIVE NEGATIVE UA LEUKOCYTE ESTERASE W REFLEX (test code = LEUUR) 500 Fermin/u L (3+) Fermin/uL NEGATIVE A UA WBC (test code = WBCU) per HPF 0-5 UA RBC (test code = RBCU) per HPF 0-5 UA EPITHELIAL CELLS (test code = EPIU) per HPF Few UA BACTERIA (test code = BACU) per HPF NONE Urine Source? Clean CatchURINALYSIS [id number] 22:37:00* Test Item Value Reference Range Interpretation Comments UA COLOR (test code = COLU) Dark-Yellow YELLOW UA APPEARANCE (test code = APPU) TURBID CLEAR A UA GLUCOSE DIPSTICK (test code = DGLUU) NEGATIVE mg/dL NEGATIVE UA BILIRUBIN DIPSTICK (test code = BILU) NEGATIVE mg/dL NEGATIVE UA KETONE DIPSTICK (test code = KETU) NEGATIVE mg/dL NEGATIVE UA SPECIFIC GRAVITY (test code = SGU) 1.018 1.001-1.035 UA BLOOD DIPSTICK (test code = VU) 1.0 mg/dL (3+) mg/dL NEGATIVE A UA PH DIPSTICK (test code = NIDHI) 6.0 5.0-8.0 UA PROTEIN DIPSTICK (test code = PROU) 300 (3+) mg/dL NEGATIVE A UA UROBILINIOGEN DIPSTICK (test code = URO) Normal mg/dL NEGATIVE UA NITRITE DIPSTICK (test code = DENISE) NEGATIVE NEGATIVE UA LEUKOCYTE ESTERASE W REFLEX (test code = LEUUR) 500 Fermin/u L (3+) Fermin/uL NEGATIVE A UA WBC (test code = WBCU) >200 per HPF 0-5 A UA RBC (test code = RBCU) >200 #/HPF 0-5 UA WBC CLUMPS (test code = WBCUCL) >10 /HPF NONE A UA EPITHELIAL CELLS (test code = EPIU) FEW per HPF FEW UA BACTERIA (test code = BACU) MANY #/HPF NONE A Urine Source? Clean Catch- CT ABD PELVIS W/O [id number] 22:00:00 Name: SADA KARIMI [facility] : 1950 Age/S: 69 / F [address] Unit #: [id number] Loc: L[place]I [place] [address] Phys: Erick Frias MD Acct: [id number] Di s Date: Status: REG ER PHONE #: Exam Date: 02/29/20202148 FAX #: Reason: ttp lower abd EXAMS: CPT CODE: [id number] CT ABD PELVIS W/O CONT 82636 REASON FOR EXAM: ttp lowe r abd EXAM ORDER DATE: 02/29/2020 9:28 PM Ordering M.D .: Leilani Frias MD PROCEDURE: - CT ABD PELVIS W/O CONT non contrast axial CT images were acquired through the abdomen/pelvis at 5 mm intervals. Sagittal and coronal reformatted images were generated. Autom ated exposure control was utilized for this reduction. Phase s of contrast: None COMPARISON: CT of the abdomen and pelvis Octob er 2018 FINDINGS: The absence of IV contrast bowens its sensitivity of this exam for the detection of soft tissue pathology Visualized thorax: Trace bilateral pleural effusions with compressiv e subsegmental atelectasis in the underlying lower lobes. There is also bronchial wall thickening in the right lung base with small calcificat ions which may represent dendriform summary ossifications secondary to chr onic aspiration. Three-vessel coronary atherosclerosis is present. There i s also calcifications of the mitral annulus Hepatobiliary system: Prior cholecystectomy. Hepatic parenchyma is grossly normal Pancreas: Atrophic Spleen: Grossly normal Adrenal gl ands: Grossly normal Genitourinary system: there is a stone in th e distal left ureter () that measures 5 mm in size and there is ipsila teral hydroureter and hydronephrosis suggesting obstruction. 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 The right ureter is normal in c aliber. Urinary bladder is decompressed by Suprapubic catheter. There has been a prior hysterectomy Gastrointestinal tract and appendix: The re is diverticulosis of the PAGE 1 Signed Report (CONTINUED) [facility] 1950 Age/S: 69 / F [address] [facility] Unit #: [id number] Loc: L[place]I [place] [address] Phys: Leilani Frias MD Acct: [id number] Dis Date: Status: REG ER PHONE #: [phone] Exam Date: 02/29/20202148 FAX #: [phone] Reason: ttp lower abd EXAMS: CPT CODE: [id number] CT ABD PELVIS W/O CONT 87055 < Continued> sigmoid and descending colon without evidence of diverticulitis. The remainder of the gastrointestinal tract is within normal limits. The appendix is grossly unremarkable Abdominal vascular structures: Severe atherosclerotic calcifications are seen throughout the abdominal aorta and the iliac arteries Peritoneum and retroperitoneum: No free fluid or free air. No omental or mesenteric masses. No abnormal lymph nodes. Musculoskeletal structures and abdominal wall: Degenerative changes are seen throughout the visualized spine IMPRESSION: Obstructing stone in the distal left ureter measures 5 mm in size. There are additional stones in both kidneys. Diverticulosis of the sigmoid and descending colon without evidence of diverticulitis. Bronchial wall thickening in the right lower lobe with dendriform pulmonary ossifications chronic aspiration. Location: [facility] at 2200 Reported and signed by: Caleb Salas MD CC: Leilani Frias MD Technologist:Cristal Hamilton RT(R); [facility] CTDI: DLP: Trnscb Date/Time: 02/29/2020 (2199) [email or web address] Orig Print D/T: S: 02/29/2020 (2202) PAGE 2 Signed Report LACTIC [id number] 21:02:00* Test Item Value Reference Range Interpretation Comments LACTIC ACID (test code = LACT) 1.6 mmol/L 0.4-1.9 N - CT HEAD/BRAIN W/O [id number] 20:57:00 Name: SADA KARIMI [facility] : 1950 Age/S: 69 / F [address] [facility] Unit #: [id number] Loc: LENI S[place] [address] Phys: Leilani Frias MD Acct: [id number] Dis Date: Status: REG ER PHONE #: [phone] Exam Date: 02/29/20202049 FAX #: [phone] Reason: AMS EXAMS: CPT CODE: [id number] CT HEAD/BRAIN W/O CONT 27102 HISTORY: AMS TECHNIQUE: Noncontrast 2.[address] of the head. Examination acquired within 24 hours of arrival. Automated exposure control for dose reduction. COMPARISON: Noncontrast CT brain September 02, 2017 FINDINGS: No lacerations or contusions of the scalp or facial soft tissues. Calvarium and skull base are intact. No acute hemorrhage. No intracranial mass, mass effect, or midline shift. No effacement of the sulci or kay-white matter interface. 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 Visualized paranasal sinuses are clear. Mastoid air cells and middle ear cavities are clear. There is cerumen in the bilateral external auditory canals. Orbital contents are unremarkable. IMPRESSION: No acute intracranial process or appreciable change from prior CT scan of the brain. Location: [facility] at 2056 Reported and signed by: Caleb Salas MD CC: Leilani Alanis MD Technologist:Cristal Hamilton RT (R); [facility] CTDI: DLP: Trnscb Date/Time: 02/29/2020 (2056) [email or web address] Orig Print D/T: S: 02/29/2020 (2100) PAGE 1 Signed Report - XR CHEST 1 V 2020-02-29 20:16:00 FAX: Ashley Denis [phone] [place]: St: REG FAX: Leilani Bedolla [phone] Name: SADA KARIMI [facility] : 1950 Age/S: 69/F [address] [facility] Unit #: [id number] Loc: LENI [place] [address] Phys: Ashley Atkinson MD Acct: [id number] Dis Date: Status: REG ER PHONE #: [phone] Exam Date: 02/29/2020 0824 FAX #: [phone] Reason: line placement EXAMS: CPT CODE: [id number] XR CHEST 1 V [id number] REASON FOR EXAM: line placement Exam Order Date: 02/29/2020 8:05 PM Ordering M.DZakiya: Ashley Atkinson MD PROCEDURE: - XR CHEST 1 V COMPARISON: Chest x-ray earlier today FINDINGS/ IMPRESSION: A right IJ central line has been placed into the right atrium. No postprocedure pneumothorax. Remaining findings are unchanged. Location: [facility] at 2016 Reported and signed by: Caleb Salas MD CC: Ashley Atkinson MD; Leilani Frias MD Technologist: BHARTI MARIN , RT(R); ... Trnscrd Date/Time/By: 02/29/2020 (2015) : By: [email or web address] Orig Print D/T: S: 02/29/2020 (2023) PAGE 1 Signed Report CBC W/MANUAL [id number] 17:24:00* Test Item Value Reference Range Interpretation Comments WHITE BLOOD CELL (test code = WBC) 30.3 K/mm3 4.5-12.5 H RESULT VERIFIED BY REPEAT ANALYSIS RED BLOOD CELL (test code = RBC) 4.37 mill/mm3 3.7-5.2 N HEMOGLOBIN (test code = HGB) 11.6 gram/dL 11.5-15.5 N HEMATOCRIT (test code = HCT) 38.5 % 36.0-46.0 N MEAN CELL VOLUME (test code = MCV) 88.1 fL 80-98 N MEAN CELL HGB (test code = MCH) 26.5 picogram 27.0-33.0 L MEAN CELL HGB CONCETRATION (test code = MCHC) 30.1 gram/dL 33.0-36. 0 L RED CELL DISTRIBUTION WIDTH (test code = RDW) 14.6 % 11.6-16. 2 N RED CELL DISTRIBUTION WIDTH SD (test code = RDW-SD) 46.7 fL 37 .0-51.0 N PLATELET COUNT (test code = PLT) 214 K/mm3 150-450 N MEAN PLATELET VOLUME (test code = MPV) 9.7 fL 6.7-11.0 N IMMATURE GRANULOCYTE % (test code = IG%) 4.0 % 0.0-5.0 N NUCLEATED RBC % (test code = NRBC%) 0.0 % 0-0 N NEUTROPHIL # (test code = NT#) 27.48 K/mm3 1.8-7.7 H IMMATURE GRANULOCYTE # (test code = IG#) 1.21 x10 3/uL 0-0.03 H LYMPHOCYTE # (test code = LY#) 0.45 K/mm3 1.0-5.0 L MONOCYTE # (test code = MO#) 1.03 K/mm3 0-0.8 H EOSINOPHIL # (test code = EO#) 0.00 K/mm3 0.0-0.5 N BASOPHIL # (test code = BA#) 0.12 K/mm3 0.0-0.2 N NUCLEATED RBC # (test code = NRBC#) 0.00 K/mm3 0.0-0.1 N MANUAL DIFF REQUIRED (test code = MDIFF) YES STAIN ACCEPTABILITY (test code = STN ACCEPTABLE) STAIN ACCEPTABLE TOTAL CELLS COUNTED (test code = TCC) 115 #CELLS SEGMENTED NEUTROPHILS (test code = SEG) 75.4 % 39-69 H BAND NEUTROPHIL (test code = BAND) 21.1 % 0-10 H LYMPHOCYTE (test code = LYMPH) 0.9 % 25-55 L REACTIVE LYMPH (test code = RELYMPH) 0 % MONOCYTE (test code = MON) 2.6 % 0-10 N EOSINOPHIL (test code = EOS) 0 % 0.0-5.0 N BASOPHIL (test code = BASO) 0 % 0-1.0 N METAMYELOCYTE (test code = META) 0 % 0-0 N MYELOCYTE (test code = MYELO) 0 % 0.0-0.0 N PROMYELOCYTE (test code = PROM) 0 % 0-0 N MORPHOLOGY COMMENT (test code = MOC) TEST NOT PERFORMED PLATELET ESTIMATE (test code = PLTEST) ADEQUATE PLATELET MORPHOLOGY (test code = PLTMORPH) NORMAL IMMATURE FORMS (test code = IMMAT) 0 % 0-0 N B-TYPE NATRIURETIC [id number] 17:22:00* Test Item Value Reference Range Interpretation Comments B-TYPE NATRIURETIC PEPTIDE (test code = BNP) 388.52 pgram/mL 0-100 H BASIC METABOLIC [id number] 17:11:00* Test Item Value Reference Range Interpretation Comments SODIUM (test code = NA) 143 mmol/L 136-145 N POTASSIUM (test code = K) 3.9 mmol/L 3.5-5.1 N CHLORIDE (test code = CL) 108.0 mmol/L 98-107 H CARBON DIOXIDE (test code = CO2) 22.0 mmol/L 21-32 N ANION GAP (test code = GAP) 16.9 10-20 N GLUCOSE (test code = GLU) 158 mg/dL 74-106 H BLOOD UREA NITROGEN (test code = BUN) 31 mg/dL 7-18 H GLOMERULAR FILTRATION RATE (test code = GFR) 15 mL/min >=60 Estimated GFR by using Modified MDRD formula.Chronic kidney disease is defined as either kidney damageor GFR <60 mL/min/1.73 m2 for >3 months. CREATININE (test code = CREAT) 3.00 mg/dL 0.55-1.02 H Note change in reference range due to change in reagent. BUN/CREATININE RATIO (test code = BUN/CREA) 10.3 10-20 N CALCIUM (test code = CA) 8.7 mg/dL 8.5-10.1 N HEPATIC FUNCTION [id number] 17:11:00* Test Item Value Reference Range Interpretation Comments TOTAL PROTEIN (test code = PROT) 7.4 gram/dL 6.4-8.2 N ALBUMIN (test code = ALB) 1.9 g/dL 3.4-5.0 L GLOBULIN (test code = GLOB) 5.5 gram/dL 2.7-4.2 H ALBUMIN/GLOBULIN RATIO (test code = A/G) 0.4 0.75-1.50 L BILIRUBIN TOTAL (test code = BILT) 0.60 mg/dL 0.0-1.0 N BILIRUBIN DIRECT (test code = BILD) 0.21 mg/dL 0.0-0.20 H SGOT/AST (test code = AST) 24 IUnit/L 15-37 N SGPT/ALT (test code = ALT) 9 IUnit/L 12-78 L ALKALINE PHOSPHATASE TOTAL (test code = ALKP) 100 IUnit/L 45-117 N Note change in reference range due to change in reagent. [id number] 17:11:00* Test Item Value Reference Range Interpretation Comments LIPASE (test code = LIP) 30 U/L 73.0-393.0 L [id number] 17:11:00* Test Item Value Reference Range Interpretation Comments TROPONIN-I (test code = TROPI) 0.076 ng/mL 0-0.045 HH Results called to [id number] by V.LAB.SPR 02/29/20 1710Critical results verified and read back by Nurse? Y LACTIC [id number] 17:10:00* Test Item Value Reference Range Interpretation Comments LACTIC ACID (test code = LACT) 6.7 mmol/L 0.4-1.9 HH Results called to [id number] by [employer].LAB.SPR 02/29/20 1710Critical results verified and read back by Nurse? Y PROTHROMBIN [id number] 16:58:00* Test Item Value Reference Range Interpretation Comments PROTHROMBIN TIME PATIENT (test code = PTP) 16.7 seconds 9.0-14.0 H INTERNATIONAL NORMAL RATIO (test code = INR) 1.4 0.8-1.2 H The therapeutic range for oral anticoagulant therapy formost indications is an international normalized ratio (INR)of between 2.0 and 3.0. The recommended therapeutic INRrange for various clinical situations is listed below: Clinical Situation INR range Pulmonary e mbolism treatment (2.0-3.0)Venous thrombosis treatmentVenous thrombosis prophylaxis (high risk surgery)Prevention of systemic embolism from: Acute myocardial infarction Valvular heart disease Atrial fibrillation Mechanical prosthetic heart valves (2.5-3.5) IS PATIENT ON ANTICOAGULANTS? NTHROMBOPLASTIN TIME [id number] 16:58:00* Test Item Value Reference Range Interpretation Comments THROMBOPLASTIN TIME PARTIAL (test code = PTT) 52.1 seconds 25.0-36. 5 H IS PATIENT ON ANTICOAGULANTS? N- XR CHEST 1 [id number] 16:57:00 FAX: Leilani Bedolla [phone] [place]: St: REG Name: SADA LANDAVERDE [facility] : [birth year] Age/S: 69/F [address] [facility] Unit #: [id number] Loc: [place] [address] Phys: Leilani Frias Acct: [id number] Dis Date: Status: REG ER PHONE #: [phone] Exam Date: 02/29/2020 1635 FAX #: [phone] Reason: CODE SEPSIS EXAMS: CPT CODE: [id number] XR CHEST 1 V [id number] REASON FOR EXAM: CODE SEPS IS Exam Order Date: 02/29/2020 4:23 PM Ordering M.Laverne: Leilani Frias MD PROCEDURE: - XR CHEST 1 V COM PARISON: Chest x-ray June 26, 2019 FINDINGS: The lungs ar e hypoinflated but clear. There is no pleural effusion or pneumothorax. P ulmonary vascularity is within normal limits. Cardiomediastinal si lhouette is prominent but stable in size. The mediastinal contours are wit hin normal limits. Degenerative changes are again seen in the spin e. The visualized upper abdomen is within normal limits. IMPRESSION: No acute cardiopulmonary process. Cardiomegal y is unchanged from prior exam. Location: [facility] at 1657 Reported and signed by: Caleb Salas MD CC: Leilani Frias MD Technologist: Rei Bell RT(R; ... Trnscrd Date/Time/By: 02/29/2020 (8949) : By: Geronimo .[email or web address] Orig Print D/T: S: 02/29/2020 (4587) PAGE 1 Signed Report BASIC METABOLIC [id number] 16:56:00* Test Item Value Reference Range Interpretation Comments SODIUM (test code = NA) 143 mmol/L 136-145 N POTASSIUM (test code = K) 3.9 mmol/L 3.5-5.1 N CHLORIDE (test code = CL) 108.0 mmol/L 98-107 H CARBON DIOXIDE (test code = CO2) mmol/L 21-32 ANION GAP (test code = GAP) 10-20 GLUCOSE (test code = GLU) mg/dL 74-106 BLOOD UREA NITROGEN (test code = BUN) mg/dL 7-18 GLOMERULAR FILTRATION RATE (test code = GFR) mL/min >=60 CREATININE (test code = CREAT) mg/dL 0.55-1.02 BUN/CREATININE RATIO (test code = BUN/CREA) 10-20 CALCIUM (test code = CA) mg/dL 8.5-10.1 HEPATIC FUNCTION [id number] 16:56:00* Test Item Value Reference Range Interpretation Comments TOTAL PROTEIN (test code = PROT) gram/dL 6.4-8.2 ALBUMIN (test code = ALB) g/dL 3.4-5.0 GLOBULIN (test code = GLOB) gram/dL 2.7-4.2 ALBUMIN/GLOBULIN RATIO (test code = A/G) 0.75-1.50 BILIRUBIN TOTAL (test code = BILT) mg/dL 0.0-1.0 BILIRUBIN DIRECT (test code = BILD) mg/dL 0.0-0.20 SGOT/AST (test code = AST) IUnit/L 15-37 SGPT/ALT (test code = ALT) IUnit/L 12-78 ALKALINE PHOSPHATASE TOTAL (test code = ALKP) IUnit/L 45-117 [id number] 16:56:00* Test Item Value Reference Range Interpretation Comments LIPASE (test code = LIP) U/L 73.0-393.0 [id number] 16:56:00* Test Item Value Reference Range Interpretation Comments TROPONIN-I (test code = TROPI) ng/mL 0-0.045 CBC W/MANUAL [id number] 16:49:00* Test Item Value Reference Range Interpretation Comments WHITE BLOOD CELL (test code = WBC) 30.3 K/mm3 4.5-12.5 H RESULT VERIFIED BY REPEAT ANALYSIS RED BLOOD CELL (test code = RBC) 4.37 mill/mm3 3.7-5.2 N HEMOGLOBIN (test code = HGB) 11.6 gram/dL 11.5-15.5 N HEMATOCRIT (test code = HCT) 38.5 % 36.0-46.0 N MEAN CELL VOLUME (test code = MCV) 88.1 fL 80-98 N MEAN CELL HGB (test code = MCH) 26.5 picogram 27.0-33.0 L MEAN CELL HGB CONCETRATION (test code = MCHC) 30.1 gram/dL 33.0-36. 0 L RED CELL DISTRIBUTION WIDTH (test code = RDW) 14.6 % 11.6-16. 2 N RED CELL DISTRIBUTION WIDTH SD (test code = RDW-SD) 46.7 fL 37 .0-51.0 N PLATELET COUNT (test code = PLT) 214 K/mm3 150-450 N MEAN PLATELET VOLUME (test code = MPV) 9.7 fL 6.7-11.0 N IMMATURE GRANULOCYTE % (test code = IG%) 4.0 % 0.0-5.0 N NUCLEATED RBC % (test code = NRBC%) 0.0 % 0-0 N NEUTROPHIL # (test code = NT#) 27.48 K/mm3 1.8-7.7 H IMMATURE GRANULOCYTE # (test code = IG#) 1.21 x10 3/uL 0-0.03 H LYMPHOCYTE # (test code = LY#) 0.45 K/mm3 1.0-5.0 L MONOCYTE # (test code = MO#) 1.03 K/mm3 0-0.8 H EOSINOPHIL # (test code = EO#) 0.00 K/mm3 0.0-0.5 N BASOPHIL # (test code = BA#) 0.12 K/mm3 0.0-0.2 N NUCLEATED RBC # (test code = NRBC#) 0.00 K/mm3 0.0-0.1 N MANUAL DIFF REQUIRED (test code = MDIFF) YES STAIN ACCEPTABILITY (test code = STN ACCEPTABLE) TOTAL CELLS COUNTED (test code = TCC) #CELLS SEGMENTED NEUTROPHILS (test code = SEG) % 39-69 LYMPHOCYTE (test code = LYMPH) % 25-55 MONOCYTE (test code = MON) % 0-10 MORPHOLOGY COMMENT (test code = MOC) PLATELET ESTIMATE (test code = PLTEST) PLATELET MORPHOLOGY (test code = PLTMORPH) CBC W/MANUAL [id number] 16:48:00* Test Item Value Reference Range Interpretation Comments WHITE BLOOD CELL (test code = WBC) 30.3 K/mm3 4.5-12.5 H RESULT VERIFIED BY REPEAT ANALYSIS RED BLOOD CELL (test code = RBC) 4.37 mill/mm3 3.7-5.2 N HEMOGLOBIN (test code = HGB) 11.6 gram/dL 11.5-15.5 N HEMATOCRIT (test code = HCT) 38.5 % 36.0-46.0 N MEAN CELL VOLUME (test code = MCV) 88.1 fL 80-98 N MEAN CELL HGB (test code = MCH) 26.5 picogram 27.0-33.0 L MEAN CELL HGB CONCETRATION (test code = MCHC) 30.1 gram/dL 33.0-36. 0 L RED CELL DISTRIBUTION WIDTH (test code = RDW) 14.6 % 11.6-16. 2 N RED CELL DISTRIBUTION WIDTH SD (test code = RDW-SD) 46.7 fL 37 .0-51.0 N PLATELET COUNT (test code = PLT) 214 K/mm3 150-450 N MEAN PLATELET VOLUME (test code = MPV) 9.7 fL 6.7-11.0 N IMMATURE GRANULOCYTE % (test code = IG%) 4.0 % 0.0-5.0 N NUCLEATED RBC % (test code = NRBC%) 0.0 % 0-0 N NEUTROPHIL # (test code = NT#) 27.48 K/mm3 1.8-7.7 H IMMATURE GRANULOCYTE # (test code = IG#) 1.21 x10 3/uL 0-0.03 H LYMPHOCYTE # (test code = LY#) 0.45 K/mm3 1.0-5.0 L MONOCYTE # (test code = MO#) 1.03 K/mm3 0-0.8 H EOSINOPHIL # (test code = EO#) 0.00 K/mm3 0.0-0.5 N BASOPHIL # (test code = BA#) 0.12 K/mm3 0.0-0.2 N NUCLEATED RBC # (test code = NRBC#) 0.00 K/mm3 0.0-0.1 N MANUAL DIFF REQUIRED (test code = MDIFF) YES STAIN ACCEPTABILITY (test code = STN ACCEPTABLE) TOTAL CELLS COUNTED (test code = TCC) #CELLS SEGMENTED NEUTROPHILS (test code = SEG) % 39-69 LYMPHOCYTE (test code = LYMPH) % 25-55 MONOCYTE (test code = MON) % 0-10 EOSINOPHIL (test code = EOS) % 0.0-5.0 CABOT RINGS (test code = CAB) MORPHOLOGY COMMENT (test code = MOC) PLATELET ESTIMATE (test code = PLTEST) PLATELET MORPHOLOGY (test code = PLTMORPH) CBC W/MANUAL [id number] 16:48:00* Test Item Value Reference Range Interpretation Comments WHITE BLOOD CELL (test code = WBC) 30.3 K/mm3 4.5-12.5 H RESULT VERIFIED BY REPEAT ANALYSIS RED BLOOD CELL (test code = RBC) 4.37 mill/mm3 3.7-5.2 N HEMOGLOBIN (test code = HGB) 11.6 gram/dL 11.5-15.5 N HEMATOCRIT (test code = HCT) 38.5 % 36.0-46.0 N MEAN CELL VOLUME (test code = MCV) 88.1 fL 80-98 N MEAN CELL HGB (test code = MCH) 26.5 picogram 27.0-33.0 L MEAN CELL HGB CONCETRATION (test code = MCHC) 30.1 gram/dL 33.0-36. 0 L RED CELL DISTRIBUTION WIDTH (test code = RDW) 14.6 % 11.6-16. 2 N RED CELL DISTRIBUTION WIDTH SD (test code = RDW-SD) 46.7 fL 37 .0-51.0 N PLATELET COUNT (test code = PLT) 214 K/mm3 150-450 N MEAN PLATELET VOLUME (test code = MPV) 9.7 fL 6.7-11.0 N IMMATURE GRANULOCYTE % (test code = IG%) 4.0 % 0.0-5.0 N NUCLEATED RBC % (test code = NRBC%) 0.0 % 0-0 N NEUTROPHIL # (test code = NT#) 27.48 K/mm3 1.8-7.7 H IMMATURE GRANULOCYTE # (test code = IG#) 1.21 x10 3/uL 0-0.03 H LYMPHOCYTE # (test code = LY#) 0.45 K/mm3 1.0-5.0 L MONOCYTE # (test code = MO#) 1.03 K/mm3 0-0.8 H EOSINOPHIL # (test code = EO#) 0.00 K/mm3 0.0-0.5 N BASOPHIL # (test code = BA#) 0.12 K/mm3 0.0-0.2 N NUCLEATED RBC # (test code = NRBC#) 0.00 K/mm3 0.0-0.1 N MANUAL DIFF REQUIRED (test code = MDIFF) YES STAIN ACCEPTABILITY (test code = STN ACCEPTABLE) TOTAL CELLS COUNTED (test code = TCC) #CELLS SEGMENTED NEUTROPHILS (test code = SEG) % 39-69 LYMPHOCYTE (test code = LYMPH) % 25-55 MONOCYTE (test code = MON) % 0-10 EOSINOPHIL (test code = EOS) % 0.0-5.0 CABOT RINGS (test code = CAB) MORPHOLOGY COMMENT (test code = MOC) PLATELET ESTIMATE (test code = PLTEST) PLATELET MORPHOLOGY (test code = PLTMORPH) CBC W/MANUAL [id number] 16:48:00* Test Item Value Reference Range Interpretation Comments WHITE BLOOD CELL (test code = WBC) 30.3 K/mm3 4.5-12.5 H RESULT VERIFIED BY REPEAT ANALYSIS RED BLOOD CELL (test code = RBC) 4.37 mill/mm3 3.7-5.2 N HEMOGLOBIN (test code = HGB) 11.6 gram/dL 11.5-15.5 N HEMATOCRIT (test code = HCT) 38.5 % 36.0-46.0 N MEAN CELL VOLUME (test code = MCV) 88.1 fL 80-98 N MEAN CELL HGB (test code = MCH) 26.5 picogram 27.0-33.0 L MEAN CELL HGB CONCETRATION (test code = MCHC) 30.1 gram/dL 33.0-36. 0 L RED CELL DISTRIBUTION WIDTH (test code = RDW) 14.6 % 11.6-16. 2 N RED CELL DISTRIBUTION WIDTH SD (test code = RDW-SD) 46.7 fL 37 .0-51.0 N PLATELET COUNT (test code = PLT) 214 K/mm3 150-450 N MEAN PLATELET VOLUME (test code = MPV) 9.7 fL 6.7-11.0 N IMMATURE GRANULOCYTE % (test code = IG%) 4.0 % 0.0-5.0 N NUCLEATED RBC % (test code = NRBC%) 0.0 % 0-0 N NEUTROPHIL # (test code = NT#) 27.48 K/mm3 1.8-7.7 H IMMATURE GRANULOCYTE # (test code = IG#) 1.21 x10 3/uL 0-0.03 H LYMPHOCYTE # (test code = LY#) 0.45 K/mm3 1.0-5.0 L MONOCYTE # (test code = MO#) 1.03 K/mm3 0-0.8 H EOSINOPHIL # (test code = EO#) 0.00 K/mm3 0.0-0.5 N BASOPHIL # (test code = BA#) 0.12 K/mm3 0.0-0.2 N NUCLEATED RBC # (test code = NRBC#) 0.00 K/mm3 0.0-0.1 N MANUAL DIFF REQUIRED (test code = MDIFF) YES STAIN ACCEPTABILITY (test code = STN ACCEPTABLE) TOTAL CELLS COUNTED (test code = TCC) #CELLS SEGMENTED NEUTROPHILS (test code = SEG) % 39-69 LYMPHOCYTE (test code = LYMPH) % 25-55 MONOCYTE (test code = MON) % 0-10 EOSINOPHIL (test code = EOS) % 0.0-5.0 MORPHOLOGY COMMENT (test code = MOC) PLATELET ESTIMATE (test code = PLTEST) PLATELET MORPHOLOGY (test code = PLTMORPH) CBC W/MANUAL [id number] 16:48:00* Test Item Value Reference Range Interpretation Comments WHITE BLOOD CELL (test code = WBC) 30.3 K/mm3 4.5-12.5 H RESULT VERIFIED BY REPEAT ANALYSIS RED BLOOD CELL (test code = RBC) 4.37 mill/mm3 3.7-5.2 N HEMOGLOBIN (test code = HGB) 11.6 gram/dL 11.5-15.5 N HEMATOCRIT (test code = HCT) 38.5 % 36.0-46.0 N MEAN CELL VOLUME (test code = MCV) 88.1 fL 80-98 N MEAN CELL HGB (test code = MCH) 26.5 picogram 27.0-33.0 L MEAN CELL HGB CONCETRATION (test code = MCHC) 30.1 gram/dL 33.0-36. 0 L RED CELL DISTRIBUTION WIDTH (test code = RDW) 14.6 % 11.6-16. 2 N RED CELL DISTRIBUTION WIDTH SD (test code = RDW-SD) 46.7 fL 37 .0-51.0 N PLATELET COUNT (test code = PLT) 214 K/mm3 150-450 N MEAN PLATELET VOLUME (test code = MPV) 9.7 fL 6.7-11.0 N IMMATURE GRANULOCYTE % (test code = IG%) 4.0 % 0.0-5.0 N NUCLEATED RBC % (test code = NRBC%) 0.0 % 0-0 N NEUTROPHIL # (test code = NT#) 27.48 K/mm3 1.8-7.7 H IMMATURE GRANULOCYTE # (test code = IG#) 1.21 x10 3/uL 0-0.03 H LYMPHOCYTE # (test code = LY#) 0.45 K/mm3 1.0-5.0 L MONOCYTE # (test code = MO#) 1.03 K/mm3 0-0.8 H EOSINOPHIL # (test code = EO#) 0.00 K/mm3 0.0-0.5 N BASOPHIL # (test code = BA#) 0.12 K/mm3 0.0-0.2 N NUCLEATED RBC # (test code = NRBC#) 0.00 K/mm3 0.0-0.1 N MANUAL DIFF REQUIRED (test code = MDIFF) YES STAIN ACCEPTABILITY (test code = STN ACCEPTABLE) TOTAL CELLS COUNTED (test code = TCC) #CELLS SEGMENTED NEUTROPHILS (test code = SEG) % 39-69 LYMPHOCYTE (test code = LYMPH) % 25-55 MONOCYTE (test code = MON) % 0-10 EOSINOPHIL (test code = EOS) % 0.0-5.0 CABOT RINGS (test code = CAB) MORPHOLOGY COMMENT (test code = MOC) PLATELET ESTIMATE (test code = PLTEST) PLATELET MORPHOLOGY (test code = PLTMORPH) - XR FLUORO [id number] 14:03:00 Name: SADA KARIMI [facility] : 1950 Age/S: 68 / F [address] [facility] Unit #: [id number] Loc: LEN[place] [address] Phys: Andrew Hedrick II, MD Acct: [id number] Dis Date: Status: ADM IN PHONE #: [phone] Exam Date: 09/03/2019 1305 FAX #: [phone] Reason: EXAMS: CPT CODE: [id number] XR FLUORO NDL [id number] Fluoro Time: 33 DAP (Gy m2): 2.91 Air Kerma (mGy): 9 REASON FOR EXAM:Nonfunctioning suprapubic catheter PROCEDURE: Ultrasound and fluoroscopic guided peripherally inserted Central catheter placement FINDINGS: Prior to the procedure, informed consent was obtained after risks and benefits of the procedure were explained to the patient. The patient agreed and wanted to proceed. The patient was brought to special procedures and placed supine on the table. The abdomen was prepped was draped in the usual fashion. All elements of maximal sterile barrier techniques were applied. The existing suprapubic catheter was removed. A micropuncture sheath was advanced into the tract. Contrast injected shows opacification of a contracted urinary bladder. A guidewire was inserted through the micropuncture sheath into the urinary bladder. A 22 Barbadian Jansen catheter was advanced over the guidewire into the urinary bladder. The retention balloon was inflated. Contrast was injected to document intraluminal position of the new suprapubic catheter MEDICATIONS: None COMPLICATIONS: None Blood loss: Less than 5 mL Fluoroscopic time: 33 seconds Radiation dose: 9 mGy IMPRESSION: Technically successful placement of 22 Barbadian suprapubic catheter at 1403 Reported and signed by: Richie Howard M.D. CC: Andrew Hedrick II, MD Technologist: Kena Avina RT(R) Trnscb Date/Time: 09/03/2019 (6894) ShirleyVTL Orig Print D/T: S: 09/03/2019 (6553) PAGE 1 Signed Report PROTHROMBIN [id number] 12:38:00* Test Item Value Reference Range Interpretation Comments PROTHROMBIN TIME PATIENT (test code = PTP) 12.7 seconds 9.0-14.0 N INTERNATIONAL NORMAL RATIO (test code = INR) 1.1 0.8-1.2 N The therapeutic range for oral anticoagulant therapy formost indications is an international normalized ratio (INR)of between 2.0 and 3.0. The recommended therapeutic INRrange for various clinical situations is listed below: Clinical Situation INR range Pulmonary e mbolism treatment (2.0-3.0)Venous thrombosis treatmentVenous thrombosis prophylaxis (high risk surgery)Prevention of systemic embolism from: Acute myocardial infarction Valvular heart disease Atrial fibrillation Mechanical prosthetic heart valves (2.5-3.5) IS PATIENT ON ANTICOAGULANTS? YLIST ANTICOAGULANTS ASPIRINCOMMENTS TO PHLEBO TOMIST: NEED STAT FOR PROCEDURETHROMBOPLASTIN TIME [id number] 12:38:00* Test Item Value Reference Range Interpretation Comments THROMBOPLASTIN TIME PARTIAL (test code = PTT) 38.3 seconds 25.0-36. 5 H IS PATIENT ON ANTICOAGULANTS? YLIST ANTICOAGULANTS ASPIRINCOMMENTS TO PHLEBO TOMIST: NEED STAT FOR PROCEDURE- CT ABD PELVIS W/O [id number] 18:52:00 Name: SADA KARIMI [facility] : 1950 Age/S: 68 / F [address] [facility] Unit #: [id number] Loc: L[place] [address] Phys: Flavio Michele MD Acct: [id number] Di s Date: Status: REG ER PHONE #: [phone] Exam Date: 09/02/2019 0354 FAX #: [phone] Reason: abd pain, suprapubic cath placement Report Has Been Amended EXAMS: CPT CODE: [id number] CT ABD PELVIS W/O CONT 83362 Addendum - 09/02/2019 SIGNED 09/02 ADDENDUM: [id number] CT/CTABPLWO The s uprapubic catheter balloon is within the urinary bladder. No radiopaque ob struction is seen within the catheter lumen. The catheter does not appear to enter the urethra. Electronically Signed by Caleb Salas MD on 07/2019 at 1852 Reported and signed by: Caleb Salas MD Transcribed: 09/02/2019 (1851) [email or web address] Report REASON FOR EXAM: abd pain, suprapubic cath placement EXAM ORDER D ATE: 09/02/2019 3:40 PM Ordering M.D.: Theodore Michele MD PROCEDURE: - CT ABD PELVIS W/O CONT noncontrast axial CT images were acquired through the abdomen/pelvis at 5 mm intervals. Sagittal and coron al reformatted images were generated. Automated exposure control was util ized for this reduction. Phases of contrast: None CO MPARISON: CT abdomen and pelvis May 05, 2019 FINDINGS: The absence of IV contrast limits sensitivity of this exam for the de tection of soft tissue pathology Visualized thorax: Lung bases are clear. Three-vessel coronary atherosclerosis is present. There are also m itral annular calcifications. Small pericardial effusion is present. Hepatobiliary system: Prior cholecystectomy. Otherwise grossly normal Pancreas: Atrophic PAGE 1 Signed Report (CONTINUED) Name: SADA KARIMI [facility] : 1950 Age/S: 68 / F [address] [facility] Unit #: [id number] Loc: LENI S[place] [address] Phys: Theodore Michele MD Acct: [id number] Dis Date: Status: REG ER PHONE #: [phone] Exam Date: 09/02/2019 16 45 FAX #: [phone] Reason: abd pain, suprapubic cat h placement Report Has Been Amended EXAMS: CPT CODE: [id number] CT ABD PELVIS W/O CONT 35699 <Continued> Spleen: Grossly normal Adrenal glands: Grossly normal Genitourinary system: There is left-sided hydronephrosis and there is a 5 mm stone in the proximal left ureter (2/40) there are also additional stones in the inferior pole of the left kidney. Right kidney and right ureter are within normal limits. Suprapubic catheter is present and the bladder is decompressed. Small amount of gas within the bladder lumen is likely instrumentation. Uterus is within normal limits. Scott rointestinal tract and appendix: There is diverticulosis of the descending and sigmoid colon. The remainder of the colon is within normal limits. Ap pendix, stomach, and small bowel are within normal limits Ab dominal vascular structures: Atherosclerotic disease is scattered througho ut the abdominal aorta, splenic artery, proximal superior mesenteric arter y, and the iliac arteries Peritoneum and retroperitoneum: No free fluid or free air. No omental or mesenteric masses. No abnormal lymph no rhonda. Musculoskeletal structures and abdominal wall: Degenerative c hanges are seen throughout the thoracic and lumbar spine. IMPRESSION: Obstructing 5 mm stone in the proximal left ureter. Addition al stones are seen in the inferior pole of the left kidney. Dive rticulosis of the descending and sigmoid colon without evidence of diver ticulitis. Coronary and aortic atherosclerosis. Electronical ly Signed by Caleb Saals MD on 09/02/2019 at 1752 Report ed and signed by: Caleb Salas MD PAGE 2 Signed R eport (CONTINUED) Name: TREVSADA [facility] : 1950 Age/S: 68 / F [address] [facility] Unit #: [id number] Loc: LENI S[place] [address] Phys: Theodore Michele MD Acct: [id number] Dis Date: Status: REG ER PHONE #: [phone] Exam Date: 09/02/2019 1645 FAX #: [phone] Reason: abd pain, suprapubic cath placement Report Has Been Amended EXAMS: CPT CODE: [id number] C T ABD PELVIS W/O CONT 84240 <Continued> CC: Theodore Michele MD Technologist:Holley Liao RT(R),CT; CTDI: DLP: Trnscb Date/Time: 09/02/2019 (1751) [email or web address] Orig Print D/T: S: 09/02/2019 (1754) PAGE 3 Signed Report - CT ABD PELVIS W/O [id number] 17:52:00 Name: TREVSADA [facility] : 1950 Age/S: 68 / F [address] Unit #: [id number] Loc: LENI Sellers [address] Phys: Flavio Michele MD Acct: [id number] Di s Date: Status: REG ER PHONE #: Exam Date: 09/02/2019 1645 FAX #: Reason: abd pain, suprapubic cath placement EXAMS: CPT CODE: [id number] CT ABD PELVIS W/O CONT 35915 REASON FOR EXAM: abd pain , suprapubic cath placement EXAM ORDER DATE: 09/02/2019 3:40 PM Ordering M.D.: Theodore Michele MD PROCEDURE: - CT ABD PE LVIS W/O CONT noncontrast axial CT images were acquired through the abdom en/pelvis at 5 mm intervals. Sagittal and coronal reformatted images were generated. Automated exposure control was utilized for this reduction. Phases of contrast: None COMPARISON: CT abdomen and p margie May 05, 2019 FINDINGS: The absence of IV con trast limits sensitivity of this exam for the detection of soft tissue pat hology Visualized thorax: Lung bases are clear. Three-vessel coron galen atherosclerosis is present. There are also mitral annular calcif ications. Small pericardial effusion is present. Hepatobiliary sys tem: Prior cholecystectomy. Otherwise grossly normal Pancreas: Atr ophic Spleen: Grossly normal Adrenal glands: Grossly normal Genitourinary system: There is left-sided hydronephrosis a nd there is a 5 mm stone in the proximal left ureter (2/40) there are also additional stones in the inferior pole of the left kidney. Right ki dney and right ureter are within normal limits. Suprapubic catheter is pre sent and the bladder is decompressed. Small amount of gas within the bladd er lumen is likely instrumentation. Uterus is within normal limits. Gastrointestinal tract and appendix: There is diverticulosis of the descending and sigmoid colon. The remainder of the colon is within homa l limits. Appendix, stomach, and small bowel are within normal limits PAGE 1 Signed Report (CONTINUE D) Name: SADA KARIMI [facility] : 1950 Age/S: 68 / F [address] Unit #: [id number] Loc: LENI S[place] [address] Phys: Theodore Michele MD Acct: [id number] Dis Date: Status: REG ER PHONE # : [phone] Exam Date: 09/02/2019 1645 FAX #: [phone] Reason: abd pain, suprapubic cath placement EXAMS: CPT CODE: [id number] CT ABD PEL VIS W/O CONT 56494 <Continued> Abdominal vascular structures: Atherosclerotic disease is scattered throughout the abdominal aorta, splenic artery, proximal superior mesent nery artery, and the iliac arteries Peritoneum and retroperitoneum : No free fluid or free air. No omental or mesenteric masses. No abnorma l lymph nodes. Musculoskeletal structures and abdominal wall: Dege nerative changes are seen throughout the thoracic and lumbar spine. IMPRESSION: Obstructing 5 mm stone in the proximal left ureter . Additional stones are seen in the inferior pole of the left kidney. Diverticulosis of the descending and sigmoid colon without evidence of diverticulitis. Coronary and aortic atherosclerosis. El ectronically Signed by Caleb Salas MD on 09/02/2019 at 1752 Reported and signed by: Caleb Salas MD CC: Theodore Michele MD Technologist:Holley Liao RT( R),CT; CTDI: DLP: Trnscb Date/Time: 09/02/2019 (175) [email or web address] Orig Print D/T: S: 09/02/2019 (012) PAGE 2 Signed Report BASIC METABOLIC PANEL 2019-09-02 17:01:00* Test Item Value Reference Range Interpretation Comments SODIUM (test code = NA) 144 mmol/L 136-145 N POTASSIUM (test code = K) 4.0 mmol/L 3.5-5.1 N CHLORIDE (test code = CL) 108.0 mmol/L 98-107 H CARBON DIOXIDE (test code = CO2) 30.0 mmol/L 21-32 N ANION GAP (test code = GAP) 10.0 10-20 N GLUCOSE (test code = GLU) 75 mg/dL 74-106 N BLOOD UREA NITROGEN (test code = BUN) 17 mg/dL 7-18 N GLOMERULAR FILTRATION RATE (test code = GFR) > 60 mL/min >=60 Estimated GFR by using Modified MDRD formula.Chronic kidney disease is defined as either kidney damageor GFR <60 mL/min/1.73 m2 for >3 months. CREATININE (test code = CREAT) 0.80 mg/dL 0.55-1.02 N Note change in reference range due to change in reagent. BUN/CREATININE RATIO (test code = BUN/CREA) 20.4 10-20 H CALCIUM (test code = CA) 8.8 mg/dL 8.5-10.1 N HEPATIC FUNCTION [id number] 17:01:00* Test Item Value Reference Range Interpretation Comments TOTAL PROTEIN (test code = PROT) 7.3 gram/dL 6.4-8.2 N ALBUMIN (test code = ALB) 2.6 g/dL 3.4-5.0 L GLOBULIN (test code = GLOB) 4.7 gram/dL 2.7-4.2 H ALBUMIN/GLOBULIN RATIO (test code = A/G) 0.6 0.75-1.50 L BILIRUBIN TOTAL (test code = BILT) 0.40 mg/dL 0.0-1.0 N BILIRUBIN DIRECT (test code = BILD) 0.14 mg/dL 0.0-0.20 N SGOT/AST (test code = AST) 13 IUnit/L 15-37 L SGPT/ALT (test code = ALT) 10 IUnit/L 12-78 L ALKALINE PHOSPHATASE TOTAL (test code = ALKP) 107 IUnit/L 45-117 N Note change in reference range due to change in reagent. [id number] 17:01:00* Test Item Value Reference Range Interpretation Comments LIPASE (test code = LIP) 116 U/L 73.0-393.0 N BASIC METABOLIC [id number] 16:53:00* Test Item Value Reference Range Interpretation Comments SODIUM (test code = NA) 144 mmol/L 136-145 N POTASSIUM (test code = K) 4.0 mmol/L 3.5-5.1 N CHLORIDE (test code = CL) 108.0 mmol/L 98-107 H CARBON DIOXIDE (test code = CO2) mmol/L 21-32 ANION GAP (test code = GAP) 10-20 GLUCOSE (test code = GLU) mg/dL 74-106 BLOOD UREA NITROGEN (test code = BUN) mg/dL 7-18 GLOMERULAR FILTRATION RATE (test code = GFR) mL/min >=60 CREATININE (test code = CREAT) mg/dL 0.55-1.02 BUN/CREATININE RATIO (test code = BUN/CREA) 10-20 CALCIUM (test code = CA) mg/dL 8.5-10.1 HEPATIC FUNCTION [id number] 16:53:00* Test Item Value Reference Range Interpretation Comments TOTAL PROTEIN (test code = PROT) gram/dL 6.4-8.2 ALBUMIN (test code = ALB) g/dL 3.4-5.0 GLOBULIN (test code = GLOB) gram/dL 2.7-4.2 ALBUMIN/GLOBULIN RATIO (test code = A/G) 0.75-1.50 BILIRUBIN TOTAL (test code = BILT) mg/dL 0.0-1.0 BILIRUBIN DIRECT (test code = BILD) mg/dL 0.0-0.20 SGOT/AST (test code = AST) IUnit/L 15-37 SGPT/ALT (test code = ALT) IUnit/L 12-78 ALKALINE PHOSPHATASE TOTAL (test code = ALKP) IUnit/L 45-117 [id number] 16:53:00* Test Item Value Reference Range Interpretation Comments LIPASE (test code = LIP) U/L 73.0-393.0 CBC W/O [id number] 16:44:00* Test Item Value Reference Range Interpretation Comments WHITE BLOOD CELL (test code = WBC) 7.0 K/mm3 4.5-12.5 N RED BLOOD CELL (test code = RBC) 3.89 mill/mm3 3.7-5.2 N HEMOGLOBIN (test code = HGB) 10.4 gram/dL 11.5-15.5 L HEMATOCRIT (test code = HCT) 34.4 % 36.0-46.0 L MEAN CELL VOLUME (test code = MCV) 88.4 fL 80-98 N MEAN CELL HGB (test code = MCH) 26.7 picogram 27.0-33.0 L MEAN CELL HGB CONCETRATION (test code = MCHC) 30.2 gram/dL 33.0-36. 0 L RED CELL DISTRIBUTION WIDTH (test code = RDW) 14.5 % 11.6-16. 2 N PLATELET COUNT (test code = PLT) 265 K/mm3 150-450 N MEAN PLATELET VOLUME (test code = MPV) 9.7 fL 6.7-11.0 N - XR SWLW FUNC W/C [id number] 11:41:00 FAX: Jackelin Parham MD [phone] [place]: B St: DIS FAX: Betty Mejia [phone] Name: SADA KARIMI [facility] : 1950 Age/S: 68/F [address] [facility] Unit #: [id number] Loc: V.4003 [place] [address] Phys: Betty Mejia NP Acct: [id number] Dis Date: [id number] Status: DIS IN PHONE #: [phone] Exam Date: 07/01/2019 1333 FAX #: [phone] Reason: EVALULATION FOR THIN LIQUID EXAMS: CPT CODE: [id number] XR SWLW FUN W/C V 68187 EXAM: Modified barium swallow; INFORMATION: Dyspha dalia; IMPRESSION: There was delayed triggering of pharyng eal swallow and laryngeal penetration was seen when using thin liquids. No evidence of aspiration. Fluoroscopy Time: 134 sec CAK : 9.83 mGy at 1141 Reported and signed by: Gregorio Hartman M.D. CC: Jackelin Kurtz MD; Betty Mejia NP Te chnologist: Wanda SOSA(Rose Mary) Trnscrd Date/ Time/By: 07/02/2019 (1141) : By: ShirleyGRW PAGE 1 Signed Report [id number] 16:22:00* Test Item Value Reference Range Interpretation Comments GLUBED (test code = GLUBED) 72 mg/dL 74-106 L Performed by certified concrete wall grinder operator at [facility] [id number] 11:41:00* Test Item Value Reference Range Interpretation Comments GLUBED (test code = GLUBED) 96 mg/dL 74-106 N Performed by certified concrete wall grinder operator at [facility] [id number] 08:24:00* Test Item Value Reference Range Interpretation Comments GLUBED (test code = GLUBED) 68 mg/dL 74-106 L Performed by certified concrete wall grinder operator at [facility] [id number] 20:31:00* Test Item Value Reference Range Interpretation Comments GLUBED (test code = GLUBED) 81 mg/dL 74-106 N Performed by certified concrete wall grinder operator at [facility] [id number] 15:45:00* Test Item Value Reference Range Interpretation Comments GLUBED (test code = GLUBED) 105 mg/dL 74-106 N Performed by certified concrete wall grinder operator at [facility] [id number] 11:46:00* Test Item Value Reference Range Interpretation Comments GLUBED (test code = GLUBED) 120 mg/dL 74-106 H Performed by certified concrete wall grinder operator at [facility] [id number] 08:01:00* Test Item Value Reference Range Interpretation Comments GLUBED (test code = GLUBED) 80 mg/dL 74-106 N Performed by certified concrete wall grinder operator at [facility] BASIC METABOLIC [id number] 05:51:00* Test Item Value Reference Range Interpretation Comments SODIUM (test code = NA) 145 mmol/L 136-145 N POTASSIUM (test code = K) 3.9 mmol/L 3.5-5.1 N CHLORIDE (test code = CL) 111.0 mmol/L 98-107 H CARBON DIOXIDE (test code = CO2) mmol/L 21-32 ANION GAP (test code = GAP) 10-20 GLUCOSE (test code = GLU) mg/dL 74-106 BLOOD UREA NITROGEN (test code = BUN) mg/dL 7-18 GLOMERULAR FILTRATION RATE (test code = GFR) mL/min >=60 CREATININE (test code = CREAT) mg/dL 0.55-1.02 BUN/CREATININE RATIO (test code = BUN/CREA) 10-20 CALCIUM (test code = CA) 7.7 mg/dL 8.5-10.1 L BASIC METABOLIC [id number] 05:51:00* Test Item Value Reference Range Interpretation Comments SODIUM (test code = NA) 145 mmol/L 136-145 N POTASSIUM (test code = K) 3.9 mmol/L 3.5-5.1 N CHLORIDE (test code = CL) 111.0 mmol/L 98-107 H CARBON DIOXIDE (test code = CO2) 27.0 mmol/L 21-32 N ANION GAP (test code = GAP) 10.9 10-20 N GLUCOSE (test code = GLU) 94 mg/dL 74-106 N BLOOD UREA NITROGEN (test code = BUN) 21 mg/dL 7-18 H GLOMERULAR FILTRATION RATE (test code = GFR) 49 mL/min >=60 Estimated GFR by using Modified MDRD formula.Chronic kidney disease is defined as either kidney damageor GFR <60 mL/min/1.73 m2 for >3 months. CREATININE (test code = CREAT) 1.10 mg/dL 0.55-1.02 H Note change in reference range due to change in reagent. BUN/CREATININE RATIO (test code = BUN/CREA) 19.1 10-20 N CALCIUM (test code = CA) 7.7 mg/dL 8.5-10.1 L CBC W/AUTO [id number] 05:31:00* Test Item Value Reference Range Interpretation Comments WHITE BLOOD CELL (test code = WBC) 12.0 K/mm3 4.5-12.5 N RED BLOOD CELL (test code = RBC) 4.05 mill/mm3 3.7-5.2 N HEMOGLOBIN (test code = HGB) 11.9 gram/dL 11.5-15.5 N HEMATOCRIT (test code = HCT) 36.8 % 36.0-46.0 N MEAN CELL VOLUME (test code = MCV) 90.9 fL 80-98 N MEAN CELL HGB (test code = MCH) 29.4 picogram 27.0-33.0 N MEAN CELL HGB CONCETRATION (test code = MCHC) 32.3 gram/dL 33.0-36. 0 L RED CELL DISTRIBUTION WIDTH (test code = RDW) 12.8 % 11.6-16. 2 N RED CELL DISTRIBUTION WIDTH SD (test code = RDW-SD) 42.9 fL 37 .0-51.0 N PLATELET COUNT (test code = PLT) 115 K/mm3 150-450 L MEAN PLATELET VOLUME (test code = MPV) 11.6 fL 6.7-11.0 H NEUTROPHIL % (test code = NT%) 82.8 % 39.0-69.0 H IMMATURE GRANULOCYTE % (test code = IG%) 2.7 % 0.0-5.0 N LYMPHOCYTE % (test code = LY%) 8.4 % 25.0-55.0 L MONOCYTE % (test code = MO%) 3.3 % 0.0-10.0 N EOSINOPHIL % (test code = EO%) 2.3 % 0.0-5.0 N BASOPHIL % (test code = BA%) 0.5 % 0.0-1.0 N NUCLEATED RBC % (test code = NRBC%) 0.0 % 0-0 N NEUTROPHIL # (test code = NT#) 9.95 K/mm3 1.8-7.7 H IMMATURE GRANULOCYTE # (test code = IG#) 0.32 x10 3/uL 0-0.03 H LYMPHOCYTE # (test code = LY#) 1.01 K/mm3 1.0-5.0 N MONOCYTE # (test code = MO#) 0.39 K/mm3 0-0.8 N EOSINOPHIL # (test code = EO#) 0.27 K/mm3 0.0-0.5 N BASOPHIL # (test code = BA#) 0.06 K/mm3 0.0-0.2 N NUCLEATED RBC # (test code = NRBC#) 0.00 K/mm3 0.0-0.1 N MANUAL DIFF REQUIRED (test code = MDIFF) NO [id number] 21:07:00* Test Item Value Reference Range Interpretation Comments GLUBED (test code = GLUBED) 81 mg/dL 74-106 N [facility] certified concrete wall grinder [facility]~ [id number] 16:38:00* Test Item Value Reference Range Interpretation Comments GLUBED (test code = GLUBED) 78 mg/dL 74-106 N Performed by certified concrete wall grinder operator at [facility] BASIC METABOLIC [id number] 13:24:00* Test Item Value Reference Range Interpretation Comments SODIUM (test code = NA) 145 mmol/L 136-145 N POTASSIUM (test code = K) 2.9 mmol/L 3.5-5.1 L Re sults called to [id number] by HECTOR 06/29/19 1323Critical results verified and read back by Nurse? Y CHLORIDE (test code = CL) 110.0 mmol/L 98-107 H CARBON DIOXIDE (test code = CO2) 25.0 mmol/L 21-32 N ANION GAP (test code = GAP) 12.9 10-20 N GLUCOSE (test code = GLU) 128 mg/dL 74-106 H BLOOD UREA NITROGEN (test code = BUN) 26 mg/dL 7-18 H GLOMERULAR FILTRATION RATE (test code = GFR) 49 mL/min >=60 Estimated GFR by using Modified MDRD formula.Chronic kidney disease is defined as either kidney damageor GFR <60 mL/min/1.73 m2 for >3 months. CREATININE (test code = CREAT) 1.10 mg/dL 0.55-1.02 H Note change in reference range due to change in reagent. BUN/CREATININE RATIO (test code = BUN/CREA) 23.6 10-20 H CALCIUM (test code = CA) 7.9 mg/dL 8.5-10.1 L [id number] 12:56:00* Test Item Value Reference Range Interpretation Comments GLUBED (test code = GLUBED) 124 mg/dL 74-106 H Performed by certified concrete wall grinder operator at [facility] CBC W/AUTO [id number] 12:32:00* Test Item Value Reference Range Interpretation Comments WHITE BLOOD CELL (test code = WBC) 12.4 K/mm3 4.5-12.5 N RED BLOOD CELL (test code = RBC) 4.31 mill/mm3 3.7-5.2 N HEMOGLOBIN (test code = HGB) 12.8 gram/dL 11.5-15.5 N HEMATOCRIT (test code = HCT) 39.3 % 36.0-46.0 N MEAN CELL VOLUME (test code = MCV) 91.2 fL 80-98 RESULT VERIFIED BY REPEAT ANALYSIS MEAN CELL HGB (test code = MCH) 29.7 picogram 27.0-33.0 N MEAN CELL HGB CONCETRATION (test code = MCHC) 32.6 gram/dL 33.0-36. 0 L RED CELL DISTRIBUTION WIDTH (test code = RDW) 12.9 % 11.6-16. 2 N RED CELL DISTRIBUTION WIDTH SD (test code = RDW-SD) 43.1 fL 37 .0-51.0 N PLATELET COUNT (test code = PLT) 110 K/mm3 150-450 L MEAN PLATELET VOLUME (test code = MPV) 12.2 fL 6.7-11.0 H NEUTROPHIL % (test code = NT%) 87.3 % 39.0-69.0 H IMMATURE GRANULOCYTE % (test code = IG%) 1.8 % 0.0-5.0 N LYMPHOCYTE % (test code = LY%) 6.2 % 25.0-55.0 L MONOCYTE % (test code = MO%) 1.9 % 0.0-10.0 N EOSINOPHIL % (test code = EO%) 2.3 % 0.0-5.0 N BASOPHIL % (test code = BA%) 0.5 % 0.0-1.0 N NUCLEATED RBC % (test code = NRBC%) 0.0 % 0-0 N NEUTROPHIL # (test code = NT#) 10.79 K/mm3 1.8-7.7 H IMMATURE GRANULOCYTE # (test code = IG#) 0.22 x10 3/uL 0-0.03 H LYMPHOCYTE # (test code = LY#) 0.76 K/mm3 1.0-5.0 L MONOCYTE # (test code = MO#) 0.24 K/mm3 0-0.8 N EOSINOPHIL # (test code = EO#) 0.28 K/mm3 0.0-0.5 N BASOPHIL # (test code = BA#) 0.06 K/mm3 0.0-0.2 N NUCLEATED RBC # (test code = NRBC#) 0.00 K/mm3 0.0-0.1 N [id number] 08:10:00* Test Item Value Reference Range Interpretation Comments GLUBED (test code = GLUBED) 99 mg/dL 74-106 N Performed by certified concrete wall grinder operator at [facility] [id number] 20:56:00* Test Item Value Reference Range Interpretation Comments GLUBED (test code = GLUBED) 95 mg/dL 74-106 N [facility]~ [id number] 18:55:00* Test Item Value Reference Range Interpretation Comments GLUBED (test code = GLUBED) 112 mg/dL 74-106 H Performed by certified concrete wall grinder operator at [facility] [id number] 12:44:00* Test Item Value Reference Range Interpretation Comments GLUBED (test code = GLUBED) 136 mg/dL 74-106 H Performed by certified concrete wall grinder operator at [facility] BASIC METABOLIC [id number] 11:35:00* Test Item Value Reference Range Interpretation Comments SODIUM (test code = NA) 141 mmol/L 136-145 RESU LT VERIFIED BY REPEAT ANALYSIS POTASSIUM (test code = K) 3.4 mmol/L 3.5-5.1 L CHLORIDE (test code = CL) 114.0 mmol/L 98-107 H CARBON DIOXIDE (test code = CO2) 21.0 mmol/L 21-32 N ANION GAP (test code = GAP) 9.4 10-20 L GLUCOSE (test code = GLU) 125 mg/dL 74-106 H BLOOD UREA NITROGEN (test code = BUN) 37 mg/dL 7-18 H RESULT VERIFIED BY REPEAT ANALYSIS GLOMERULAR FILTRATION RATE (test code = GFR) > 60 mL/min >=60 Estimated GFR by using Modified MDRD formula.Chronic kidney disease is defined as either kidney damageor GFR <60 mL/min/1.73 m2 for >3 months. CREATININE (test code = CREAT) 0.90 mg/dL 0.55-1.02 N Note change in reference range due to change in reagent. BUN/CREATININE RATIO (test code = BUN/CREA) 41.1 10-20 H CALCIUM (test code = CA) 7.6 mg/dL 8.5-10.1 L [id number] 08:28:00* Test Item Value Reference Range Interpretation Comments GLUBED (test code = GLUBED) 118 mg/dL 74-106 H Performed by certified concrete wall grinder operator at [facility] CBC W/MANUAL [id number] 08:03:00* Test Item Value Reference Range Interpretation Comments WHITE BLOOD CELL (test code = WBC) 14.5 K/mm3 4.5-12.5 H RED BLOOD CELL (test code = RBC) 3.97 mill/mm3 3.7-5.2 N HEMOGLOBIN (test code = HGB) 11.9 gram/dL 11.5-15.5 N HEMATOCRIT (test code = HCT) 40.2 % 36.0-46.0 N MEAN CELL VOLUME (test code = MCV) 101.3 fL 80-98 H RESULT VERIFIED BY REPEAT ANALYSIS MEAN CELL HGB (test code = MCH) 30.0 picogram 27.0-33.0 N MEAN CELL HGB CONCETRATION (test code = MCHC) 29.6 gram/dL 33.0-36. 0 L RED CELL DISTRIBUTION WIDTH (test code = RDW) 13.4 % 11.6-16. 2 N RED CELL DISTRIBUTION WIDTH SD (test code = RDW-SD) 50.2 fL 37 .0-51.0 N PLATELET COUNT (test code = PLT) 93 K/mm3 150-450 L MEAN PLATELET VOLUME (test code = MPV) 11.4 fL 6.7-11.0 H IMMATURE GRANULOCYTE % (test code = IG%) 1.2 % 0.0-5.0 N NUCLEATED RBC % (test code = NRBC%) 0.0 % 0-0 N NEUTROPHIL # (test code = NT#) 12.57 K/mm3 1.8-7.7 H IMMATURE GRANULOCYTE # (test code = IG#) 0.18 x10 3/uL 0-0.03 H LYMPHOCYTE # (test code = LY#) 1.00 K/mm3 1.0-5.0 N MONOCYTE # (test code = MO#) 0.42 K/mm3 0-0.8 N EOSINOPHIL # (test code = EO#) 0.23 K/mm3 0.0-0.5 N BASOPHIL # (test code = BA#) 0.05 K/mm3 0.0-0.2 N NUCLEATED RBC # (test code = NRBC#) 0.00 K/mm3 0.0-0.1 N MANUAL DIFF REQUIRED (test code = MDIFF) YES STAIN ACCEPTABILITY (test code = STN ACCEPTABLE) STAIN ACCEPTABLE TOTAL CELLS COUNTED (test code = TCC) 100 #CELLS SEGMENTED NEUTROPHILS (test code = SEG) 86 % 39-69 H BAND NEUTROPHIL (test code = BAND) 2 % 0-10 N LYMPHOCYTE (test code = LYMPH) 9 % 25-55 L MONOCYTE (test code = MON) 2 % 0-10 N EOSINOPHIL (test code = EOS) 1 % 0.0-5.0 N MACROCYTOSIS (test code = MACR) 1+ TOXIC GRANULATION (test code = TOX) 1+ OCCASIONAL DOHLE BODIES (test code = DB) 1+ OCCASIONAL PLATELET ESTIMATE (test code = PLTEST) DECREASED PLATELET MORPHOLOGY (test code = PLTMORPH) NORMAL CBC W/MANUAL [id number] 05:03:00* Test Item Value Reference Range Interpretation Comments WHITE BLOOD CELL (test code = WBC) 14.5 K/mm3 4.5-12.5 H RED BLOOD CELL (test code = RBC) 3.97 mill/mm3 3.7-5.2 N HEMOGLOBIN (test code = HGB) 11.9 gram/dL 11.5-15.5 N HEMATOCRIT (test code = HCT) 40.2 % 36.0-46.0 N MEAN CELL VOLUME (test code = MCV) 101.3 fL 80-98 H RESULT VERIFIED BY REPEAT ANALYSIS MEAN CELL HGB (test code = MCH) 30.0 picogram 27.0-33.0 N MEAN CELL HGB CONCETRATION (test code = MCHC) 29.6 gram/dL 33.0-36. 0 L RED CELL DISTRIBUTION WIDTH (test code = RDW) 13.4 % 11.6-16. 2 N RED CELL DISTRIBUTION WIDTH SD (test code = RDW-SD) 50.2 fL 37 .0-51.0 N PLATELET COUNT (test code = PLT) 93 K/mm3 150-450 L MEAN PLATELET VOLUME (test code = MPV) 11.4 fL 6.7-11.0 H IMMATURE GRANULOCYTE % (test code = IG%) 1.2 % 0.0-5.0 N NUCLEATED RBC % (test code = NRBC%) 0.0 % 0-0 N NEUTROPHIL # (test code = NT#) 12.57 K/mm3 1.8-7.7 H IMMATURE GRANULOCYTE # (test code = IG#) 0.18 x10 3/uL 0-0.03 H LYMPHOCYTE # (test code = LY#) 1.00 K/mm3 1.0-5.0 N MONOCYTE # (test code = MO#) 0.42 K/mm3 0-0.8 N EOSINOPHIL # (test code = EO#) 0.23 K/mm3 0.0-0.5 N BASOPHIL # (test code = BA#) 0.05 K/mm3 0.0-0.2 N NUCLEATED RBC # (test code = NRBC#) 0.00 K/mm3 0.0-0.1 N MANUAL DIFF REQUIRED (test code = MDIFF) YES STAIN ACCEPTABILITY (test code = STN ACCEPTABLE) TOTAL CELLS COUNTED (test code = TCC) #CELLS SEGMENTED NEUTROPHILS (test code = SEG) % 39-69 LYMPHOCYTE (test code = LYMPH) % 25-55 MONOCYTE (test code = MON) % 0-10 EOSINOPHIL (test code = EOS) % 0.0-5.0 CABOT RINGS (test code = CAB) MORPHOLOGY COMMENT (test code = MOC) PLATELET ESTIMATE (test code = PLTEST) PLATELET MORPHOLOGY (test code = PLTMORPH) CBC W/MANUAL [id number] 05:03:00* Test Item Value Reference Range Interpretation Comments WHITE BLOOD CELL (test code = WBC) 14.5 K/mm3 4.5-12.5 H RED BLOOD CELL (test code = RBC) 3.97 mill/mm3 3.7-5.2 N HEMOGLOBIN (test code = HGB) 11.9 gram/dL 11.5-15.5 N HEMATOCRIT (test code = HCT) 40.2 % 36.0-46.0 N MEAN CELL VOLUME (test code = MCV) 101.3 fL 80-98 H RESULT VERIFIED BY REPEAT ANALYSIS MEAN CELL HGB (test code = MCH) 30.0 picogram 27.0-33.0 N MEAN CELL HGB CONCETRATION (test code = MCHC) 29.6 gram/dL 33.0-36. 0 L RED CELL DISTRIBUTION WIDTH (test code = RDW) 13.4 % 11.6-16. 2 N RED CELL DISTRIBUTION WIDTH SD (test code = RDW-SD) 50.2 fL 37 .0-51.0 N PLATELET COUNT (test code = PLT) 93 K/mm3 150-450 L MEAN PLATELET VOLUME (test code = MPV) 11.4 fL 6.7-11.0 H IMMATURE GRANULOCYTE % (test code = IG%) 1.2 % 0.0-5.0 N NUCLEATED RBC % (test code = NRBC%) 0.0 % 0-0 N NEUTROPHIL # (test code = NT#) 12.57 K/mm3 1.8-7.7 H IMMATURE GRANULOCYTE # (test code = IG#) 0.18 x10 3/uL 0-0.03 H LYMPHOCYTE # (test code = LY#) 1.00 K/mm3 1.0-5.0 N MONOCYTE # (test code = MO#) 0.42 K/mm3 0-0.8 N EOSINOPHIL # (test code = EO#) 0.23 K/mm3 0.0-0.5 N BASOPHIL # (test code = BA#) 0.05 K/mm3 0.0-0.2 N NUCLEATED RBC # (test code = NRBC#) 0.00 K/mm3 0.0-0.1 N MANUAL DIFF REQUIRED (test code = MDIFF) YES STAIN ACCEPTABILITY (test code = STN ACCEPTABLE) TOTAL CELLS COUNTED (test code = TCC) #CELLS SEGMENTED NEUTROPHILS (test code = SEG) % 39-69 LYMPHOCYTE (test code = LYMPH) % 25-55 MONOCYTE (test code = MON) % 0-10 EOSINOPHIL (test code = EOS) % 0.0-5.0 MORPHOLOGY COMMENT (test code = MOC) PLATELET ESTIMATE (test code = PLTEST) PLATELET MORPHOLOGY (test code = PLTMORPH) CBC W/MANUAL [id number] 05:03:00* Test Item Value Reference Range Interpretation Comments WHITE BLOOD CELL (test code = WBC) 14.5 K/mm3 4.5-12.5 H RED BLOOD CELL (test code = RBC) 3.97 mill/mm3 3.7-5.2 N HEMOGLOBIN (test code = HGB) 11.9 gram/dL 11.5-15.5 N HEMATOCRIT (test code = HCT) 40.2 % 36.0-46.0 N MEAN CELL VOLUME (test code = MCV) 101.3 fL 80-98 H RESULT VERIFIED BY REPEAT ANALYSIS MEAN CELL HGB (test code = MCH) 30.0 picogram 27.0-33.0 N MEAN CELL HGB CONCETRATION (test code = MCHC) 29.6 gram/dL 33.0-36. 0 L RED CELL DISTRIBUTION WIDTH (test code = RDW) 13.4 % 11.6-16. 2 N RED CELL DISTRIBUTION WIDTH SD (test code = RDW-SD) 50.2 fL 37 .0-51.0 N PLATELET COUNT (test code = PLT) 93 K/mm3 150-450 L MEAN PLATELET VOLUME (test code = MPV) 11.4 fL 6.7-11.0 H IMMATURE GRANULOCYTE % (test code = IG%) 1.2 % 0.0-5.0 N NUCLEATED RBC % (test code = NRBC%) 0.0 % 0-0 N NEUTROPHIL # (test code = NT#) 12.57 K/mm3 1.8-7.7 H IMMATURE GRANULOCYTE # (test code = IG#) 0.18 x10 3/uL 0-0.03 H LYMPHOCYTE # (test code = LY#) 1.00 K/mm3 1.0-5.0 N MONOCYTE # (test code = MO#) 0.42 K/mm3 0-0.8 N EOSINOPHIL # (test code = EO#) 0.23 K/mm3 0.0-0.5 N BASOPHIL # (test code = BA#) 0.05 K/mm3 0.0-0.2 N NUCLEATED RBC # (test code = NRBC#) 0.00 K/mm3 0.0-0.1 N MANUAL DIFF REQUIRED (test code = MDIFF) YES STAIN ACCEPTABILITY (test code = STN ACCEPTABLE) TOTAL CELLS COUNTED (test code = TCC) #CELLS SEGMENTED NEUTROPHILS (test code = SEG) % 39-69 LYMPHOCYTE (test code = LYMPH) % 25-55 MONOCYTE (test code = MON) % 0-10 MORPHOLOGY COMMENT (test code = MOC) PLATELET ESTIMATE (test code = PLTEST) PLATELET MORPHOLOGY (test code = PLTMORPH) CBC W/MANUAL [id number] 05:02:00* Test Item Value Reference Range Interpretation Comments WHITE BLOOD CELL (test code = WBC) 14.5 K/mm3 4.5-12.5 H RED BLOOD CELL (test code = RBC) 3.97 mill/mm3 3.7-5.2 N HEMOGLOBIN (test code = HGB) 11.9 gram/dL 11.5-15.5 N HEMATOCRIT (test code = HCT) 40.2 % 36.0-46.0 N MEAN CELL VOLUME (test code = MCV) 101.3 fL 80-98 H RESULT VERIFIED BY REPEAT ANALYSIS MEAN CELL HGB (test code = MCH) 30.0 picogram 27.0-33.0 N MEAN CELL HGB CONCETRATION (test code = MCHC) 29.6 gram/dL 33.0-36. 0 L RED CELL DISTRIBUTION WIDTH (test code = RDW) 13.4 % 11.6-16. 2 N RED CELL DISTRIBUTION WIDTH SD (test code = RDW-SD) 50.2 fL 37 .0-51.0 N PLATELET COUNT (test code = PLT) 93 K/mm3 150-450 L MEAN PLATELET VOLUME (test code = MPV) 11.4 fL 6.7-11.0 H IMMATURE GRANULOCYTE % (test code = IG%) 1.2 % 0.0-5.0 N NUCLEATED RBC % (test code = NRBC%) 0.0 % 0-0 N NEUTROPHIL # (test code = NT#) 12.57 K/mm3 1.8-7.7 H IMMATURE GRANULOCYTE # (test code = IG#) 0.18 x10 3/uL 0-0.03 H LYMPHOCYTE # (test code = LY#) 1.00 K/mm3 1.0-5.0 N MONOCYTE # (test code = MO#) 0.42 K/mm3 0-0.8 N EOSINOPHIL # (test code = EO#) 0.23 K/mm3 0.0-0.5 N BASOPHIL # (test code = BA#) 0.05 K/mm3 0.0-0.2 N NUCLEATED RBC # (test code = NRBC#) 0.00 K/mm3 0.0-0.1 N MANUAL DIFF REQUIRED (test code = MDIFF) YES STAIN ACCEPTABILITY (test code = STN ACCEPTABLE) TOTAL CELLS COUNTED (test code = TCC) #CELLS SEGMENTED NEUTROPHILS (test code = SEG) % 39-69 LYMPHOCYTE (test code = LYMPH) % 25-55 MONOCYTE (test code = MON) % 0-10 EOSINOPHIL (test code = EOS) % 0.0-5.0 CABOT RINGS (test code = CAB) MORPHOLOGY COMMENT (test code = MOC) PLATELET ESTIMATE (test code = PLTEST) PLATELET MORPHOLOGY (test code = PLTMORPH) CBC W/MANUAL [id number] 05:02:00* Test Item Value Reference Range Interpretation Comments WHITE BLOOD CELL (test code = WBC) 14.5 K/mm3 4.5-12.5 H RED BLOOD CELL (test code = RBC) 3.97 mill/mm3 3.7-5.2 N HEMOGLOBIN (test code = HGB) 11.9 gram/dL 11.5-15.5 N HEMATOCRIT (test code = HCT) 40.2 % 36.0-46.0 N MEAN CELL VOLUME (test code = MCV) 101.3 fL 80-98 H RESULT VERIFIED BY REPEAT ANALYSIS MEAN CELL HGB (test code = MCH) 30.0 picogram 27.0-33.0 N MEAN CELL HGB CONCETRATION (test code = MCHC) 29.6 gram/dL 33.0-36. 0 L RED CELL DISTRIBUTION WIDTH (test code = RDW) 13.4 % 11.6-16. 2 N RED CELL DISTRIBUTION WIDTH SD (test code = RDW-SD) 50.2 fL 37 .0-51.0 N PLATELET COUNT (test code = PLT) 93 K/mm3 150-450 L MEAN PLATELET VOLUME (test code = MPV) 11.4 fL 6.7-11.0 H IMMATURE GRANULOCYTE % (test code = IG%) 1.2 % 0.0-5.0 N NUCLEATED RBC % (test code = NRBC%) 0.0 % 0-0 N NEUTROPHIL # (test code = NT#) 12.57 K/mm3 1.8-7.7 H IMMATURE GRANULOCYTE # (test code = IG#) 0.18 x10 3/uL 0-0.03 H LYMPHOCYTE # (test code = LY#) 1.00 K/mm3 1.0-5.0 N MONOCYTE # (test code = MO#) 0.42 K/mm3 0-0.8 N EOSINOPHIL # (test code = EO#) 0.23 K/mm3 0.0-0.5 N BASOPHIL # (test code = BA#) 0.05 K/mm3 0.0-0.2 N NUCLEATED RBC # (test code = NRBC#) 0.00 K/mm3 0.0-0.1 N MANUAL DIFF REQUIRED (test code = MDIFF) YES STAIN ACCEPTABILITY (test code = STN ACCEPTABLE) TOTAL CELLS COUNTED (test code = TCC) #CELLS SEGMENTED NEUTROPHILS (test code = SEG) % 39-69 LYMPHOCYTE (test code = LYMPH) % 25-55 MONOCYTE (test code = MON) % 0-10 EOSINOPHIL (test code = EOS) % 0.0-5.0 CABOT RINGS (test code = CAB) MORPHOLOGY COMMENT (test code = MOC) PLATELET ESTIMATE (test code = PLTEST) PLATELET MORPHOLOGY (test code = PLTMORPH) [id number] 16:09:00* Test Item Value Reference Range Interpretation Comments GLUBED (test code = GLUBED) 111 mg/dL 74-106 H [facility] concrete wall grinder [facility]~ [id number] 12:16:00* Test Item Value Reference Range Interpretation Comments GLUBED (test code = GLUBED) 61 mg/dL 74-106 L Performed by certified concrete wall grinder operator at [facility] BASIC METABOLIC [id number] 11:47:00* Test Item Value Reference Range Interpretation Comments SODIUM (test code = NA) 152 mmol/L 136-145 H POTASSIUM (test code = K) 4.0 mmol/L 3.5-5.1 N CHLORIDE (test code = CL) 124.0 mmol/L 98-107 H CARBON DIOXIDE (test code = CO2) 18.0 mmol/L 21-32 L ANION GAP (test code = GAP) 14.0 10-20 N GLUCOSE (test code = GLU) 65 mg/dL 74-106 L BLOOD UREA NITROGEN (test code = BUN) 56 mg/dL 7-18 H GLOMERULAR FILTRATION RATE (test code = GFR) 37 mL/min >=60 Estimated GFR by using Modified MDRD formula.Chronic kidney disease is defined as either kidney damageor GFR <60 mL/min/1.73 m2 for >3 months. CREATININE (test code = CREAT) 1.40 mg/dL 0.55-1.02 H Note change in reference range due to change in reagent. BUN/CREATININE RATIO (test code = BUN/CREA) 38.6 10-20 H CALCIUM (test code = CA) 7.8 mg/dL 8.5-10.1 L TSH REFLEX TO [id number] 11:47:00* Test Item Value Reference Range Interpretation Comments TSH REFLEX TO FT4 (test code = TSHREFLEX) 2.7 0.4-5.5 N BASIC METABOLIC [id number] 11:37:00* Test Item Value Reference Range Interpretation Comments SODIUM (test code = NA) 152 mmol/L 136-145 H POTASSIUM (test code = K) 4.0 mmol/L 3.5-5.1 N CHLORIDE (test code = CL) 124.0 mmol/L 98-107 H CARBON DIOXIDE (test code = CO2) mmol/L 21-32 ANION GAP (test code = GAP) 10-20 GLUCOSE (test code = GLU) mg/dL 74-106 BLOOD UREA NITROGEN (test code = BUN) mg/dL 7-18 GLOMERULAR FILTRATION RATE (test code = GFR) mL/min >=60 CREATININE (test code = CREAT) mg/dL 0.55-1.02 BUN/CREATININE RATIO (test code = BUN/CREA) 10-20 CALCIUM (test code = CA) mg/dL 8.5-10.1 TSH REFLEX TO [id number] 11:37:00* Test Item Value Reference Range Interpretation Comments TSH REFLEX TO FT4 (test code = TSHREFLEX) 0.4-5.5 CBC W/MANUAL [id number] 09:44:00* Test Item Value Reference Range Interpretation Comments WHITE BLOOD CELL (test code = WBC) 13.2 K/mm3 4.5-12.5 H RED BLOOD CELL (test code = RBC) 3.42 mill/mm3 3.7-5.2 L HEMOGLOBIN (test code = HGB) 10.1 gram/dL 11.5-15.5 L HEMATOCRIT (test code = HCT) 32.2 % 36.0-46.0 L MEAN CELL VOLUME (test code = MCV) 94.2 fL 80-98 N MEAN CELL HGB (test code = MCH) 29.5 picogram 27.0-33.0 N MEAN CELL HGB CONCETRATION (test code = MCHC) 31.4 gram/dL 33.0-36. 0 L RED CELL DISTRIBUTION WIDTH (test code = RDW) 13.6 % 11.6-16. 2 N RED CELL DISTRIBUTION WIDTH SD (test code = RDW-SD) 46.5 fL 37 .0-51.0 N PLATELET COUNT (test code = PLT) 113 K/mm3 150-450 L MEAN PLATELET VOLUME (test code = MPV) 11.7 fL 6.7-11.0 H IMMATURE GRANULOCYTE % (test code = IG%) 1.1 % 0.0-5.0 N NUCLEATED RBC % (test code = NRBC%) 0.0 % 0-0 N NEUTROPHIL # (test code = NT#) 11.89 K/mm3 1.8-7.7 H IMMATURE GRANULOCYTE # (test code = IG#) 0.14 x10 3/uL 0-0.03 H LYMPHOCYTE # (test code = LY#) 0.69 K/mm3 1.0-5.0 L MONOCYTE # (test code = MO#) 0.42 K/mm3 0-0.8 N EOSINOPHIL # (test code = EO#) 0.05 K/mm3 0.0-0.5 N BASOPHIL # (test code = BA#) 0.04 K/mm3 0.0-0.2 N NUCLEATED RBC # (test code = NRBC#) 0.00 K/mm3 0.0-0.1 N MANUAL DIFF REQUIRED (test code = MDIFF) YES STAIN ACCEPTABILITY (test code = STN ACCEPTABLE) STAIN ACCEPTABLE TOTAL CELLS COUNTED (test code = TCC) 114 #CELLS SEGMENTED NEUTROPHILS (test code = SEG) 96.5 % 39-69 H BAND NEUTROPHIL (test code = BAND) 0.9 % 0-10 N LYMPHOCYTE (test code = LYMPH) 1.7 % 25-55 L REACTIVE LYMPH (test code = RELYMPH) 0 % MONOCYTE (test code = MON) 0.9 % 0-10 N EOSINOPHIL (test code = EOS) 0 % 0.0-5.0 N BASOPHIL (test code = BASO) 0 % 0-1.0 N METAMYELOCYTE (test code = META) 0 % 0-0 N MYELOCYTE (test code = MYELO) 0 % 0.0-0.0 N PROMYELOCYTE (test code = PROM) 0 % 0-0 N MORPHOLOGY COMMENT (test code = MOC) NORMAL PLATELET ESTIMATE (test code = PLTEST) DECREASED PLATELET MORPHOLOGY (test code = PLTMORPH) NORMAL IMMATURE FORMS (test code = IMMAT) 0 % 0-0 N [id number] 09:07:00* Test Item Value Reference Range Interpretation Comments GLUBED (test code = GLUBED) 63 mg/dL 74-106 L Performed by certified concrete wall grinder operator at [facility] CBC W/MANUAL [id number] 08:46:00* Test Item Value Reference Range Interpretation Comments WHITE BLOOD CELL (test code = WBC) 13.2 K/mm3 4.5-12.5 H RED BLOOD CELL (test code = RBC) 3.42 mill/mm3 3.7-5.2 L HEMOGLOBIN (test code = HGB) 10.1 gram/dL 11.5-15.5 L HEMATOCRIT (test code = HCT) 32.2 % 36.0-46.0 L MEAN CELL VOLUME (test code = MCV) 94.2 fL 80-98 N MEAN CELL HGB (test code = MCH) 29.5 picogram 27.0-33.0 N MEAN CELL HGB CONCETRATION (test code = MCHC) 31.4 gram/dL 33.0-36. 0 L RED CELL DISTRIBUTION WIDTH (test code = RDW) 13.6 % 11.6-16. 2 N RED CELL DISTRIBUTION WIDTH SD (test code = RDW-SD) 46.5 fL 37 .0-51.0 N PLATELET COUNT (test code = PLT) 113 K/mm3 150-450 L MEAN PLATELET VOLUME (test code = MPV) 11.7 fL 6.7-11.0 H IMMATURE GRANULOCYTE % (test code = IG%) 1.1 % 0.0-5.0 N NUCLEATED RBC % (test code = NRBC%) 0.0 % 0-0 N NEUTROPHIL # (test code = NT#) 11.89 K/mm3 1.8-7.7 H IMMATURE GRANULOCYTE # (test code = IG#) 0.14 x10 3/uL 0-0.03 H LYMPHOCYTE # (test code = LY#) 0.69 K/mm3 1.0-5.0 L MONOCYTE # (test code = MO#) 0.42 K/mm3 0-0.8 N EOSINOPHIL # (test code = EO#) 0.05 K/mm3 0.0-0.5 N BASOPHIL # (test code = BA#) 0.04 K/mm3 0.0-0.2 N NUCLEATED RBC # (test code = NRBC#) 0.00 K/mm3 0.0-0.1 N MANUAL DIFF REQUIRED (test code = MDIFF) YES STAIN ACCEPTABILITY (test code = STN ACCEPTABLE) TOTAL CELLS COUNTED (test code = TCC) #CELLS SEGMENTED NEUTROPHILS (test code = SEG) % 39-69 LYMPHOCYTE (test code = LYMPH) % 25-55 MONOCYTE (test code = MON) % 0-10 EOSINOPHIL (test code = EOS) % 0.0-5.0 CABOT RINGS (test code = CAB) MORPHOLOGY COMMENT (test code = MOC) PLATELET ESTIMATE (test code = PLTEST) PLATELET MORPHOLOGY (test code = PLTMORPH) [id number] 08:46:00* Test Item Value Reference Range Interpretation Comments GLYCOSYLATED HEMOGLOBIN (HA1C) (test code = GLYHGB) 5.0 % HbA1 4. 8-6.0 N ESTIMATED AVERAGE GLUCOSE (test code = EAG) 97 MG/DL CBC W/MANUAL [id number] 08:46:00* Test Item Value Reference Range Interpretation Comments WHITE BLOOD CELL (test code = WBC) 13.2 K/mm3 4.5-12.5 H RED BLOOD CELL (test code = RBC) 3.42 mill/mm3 3.7-5.2 L HEMOGLOBIN (test code = HGB) 10.1 gram/dL 11.5-15.5 L HEMATOCRIT (test code = HCT) 32.2 % 36.0-46.0 L MEAN CELL VOLUME (test code = MCV) 94.2 fL 80-98 N MEAN CELL HGB (test code = MCH) 29.5 picogram 27.0-33.0 N MEAN CELL HGB CONCETRATION (test code = MCHC) 31.4 gram/dL 33.0-36. 0 L RED CELL DISTRIBUTION WIDTH (test code = RDW) 13.6 % 11.6-16. 2 N RED CELL DISTRIBUTION WIDTH SD (test code = RDW-SD) 46.5 fL 37 .0-51.0 N PLATELET COUNT (test code = PLT) 113 K/mm3 150-450 L MEAN PLATELET VOLUME (test code = MPV) 11.7 fL 6.7-11.0 H IMMATURE GRANULOCYTE % (test code = IG%) 1.1 % 0.0-5.0 N NUCLEATED RBC % (test code = NRBC%) 0.0 % 0-0 N NEUTROPHIL # (test code = NT#) 11.89 K/mm3 1.8-7.7 H IMMATURE GRANULOCYTE # (test code = IG#) 0.14 x10 3/uL 0-0.03 H LYMPHOCYTE # (test code = LY#) 0.69 K/mm3 1.0-5.0 L MONOCYTE # (test code = MO#) 0.42 K/mm3 0-0.8 N EOSINOPHIL # (test code = EO#) 0.05 K/mm3 0.0-0.5 N BASOPHIL # (test code = BA#) 0.04 K/mm3 0.0-0.2 N NUCLEATED RBC # (test code = NRBC#) 0.00 K/mm3 0.0-0.1 N MANUAL DIFF REQUIRED (test code = MDIFF) YES STAIN ACCEPTABILITY (test code = STN ACCEPTABLE) TOTAL CELLS COUNTED (test code = TCC) #CELLS SEGMENTED NEUTROPHILS (test code = SEG) % 39-69 LYMPHOCYTE (test code = LYMPH) % 25-55 MONOCYTE (test code = MON) % 0-10 EOSINOPHIL (test code = EOS) % 0.0-5.0 CABOT RINGS (test code = CAB) MORPHOLOGY COMMENT (test code = MOC) PLATELET ESTIMATE (test code = PLTEST) PLATELET MORPHOLOGY (test code = PLTMORPH) CBC W/MANUAL [id number] 08:46:00* Test Item Value Reference Range Interpretation Comments WHITE BLOOD CELL (test code = WBC) 13.2 K/mm3 4.5-12.5 H RED BLOOD CELL (test code = RBC) 3.42 mill/mm3 3.7-5.2 L HEMOGLOBIN (test code = HGB) 10.1 gram/dL 11.5-15.5 L HEMATOCRIT (test code = HCT) 32.2 % 36.0-46.0 L MEAN CELL VOLUME (test code = MCV) 94.2 fL 80-98 N MEAN CELL HGB (test code = MCH) 29.5 picogram 27.0-33.0 N MEAN CELL HGB CONCETRATION (test code = MCHC) 31.4 gram/dL 33.0-36. 0 L RED CELL DISTRIBUTION WIDTH (test code = RDW) 13.6 % 11.6-16. 2 N RED CELL DISTRIBUTION WIDTH SD (test code = RDW-SD) 46.5 fL 37 .0-51.0 N PLATELET COUNT (test code = PLT) 113 K/mm3 150-450 L MEAN PLATELET VOLUME (test code = MPV) 11.7 fL 6.7-11.0 H IMMATURE GRANULOCYTE % (test code = IG%) 1.1 % 0.0-5.0 N NUCLEATED RBC % (test code = NRBC%) 0.0 % 0-0 N NEUTROPHIL # (test code = NT#) 11.89 K/mm3 1.8-7.7 H IMMATURE GRANULOCYTE # (test code = IG#) 0.14 x10 3/uL 0-0.03 H LYMPHOCYTE # (test code = LY#) 0.69 K/mm3 1.0-5.0 L MONOCYTE # (test code = MO#) 0.42 K/mm3 0-0.8 N EOSINOPHIL # (test code = EO#) 0.05 K/mm3 0.0-0.5 N BASOPHIL # (test code = BA#) 0.04 K/mm3 0.0-0.2 N NUCLEATED RBC # (test code = NRBC#) 0.00 K/mm3 0.0-0.1 N MANUAL DIFF REQUIRED (test code = MDIFF) YES STAIN ACCEPTABILITY (test code = STN ACCEPTABLE) TOTAL CELLS COUNTED (test code = TCC) #CELLS SEGMENTED NEUTROPHILS (test code = SEG) % 39-69 LYMPHOCYTE (test code = LYMPH) % 25-55 MONOCYTE (test code = MON) % 0-10 EOSINOPHIL (test code = EOS) % 0.0-5.0 MORPHOLOGY COMMENT (test code = MOC) PLATELET ESTIMATE (test code = PLTEST) PLATELET MORPHOLOGY (test code = PLTMORPH) CBC W/MANUAL [id number] 08:46:00* Test Item Value Reference Range Interpretation Comments WHITE BLOOD CELL (test code = WBC) 13.2 K/mm3 4.5-12.5 H RED BLOOD CELL (test code = RBC) 3.42 mill/mm3 3.7-5.2 L HEMOGLOBIN (test code = HGB) 10.1 gram/dL 11.5-15.5 L HEMATOCRIT (test code = HCT) 32.2 % 36.0-46.0 L MEAN CELL VOLUME (test code = MCV) 94.2 fL 80-98 N MEAN CELL HGB (test code = MCH) 29.5 picogram 27.0-33.0 N MEAN CELL HGB CONCETRATION (test code = MCHC) 31.4 gram/dL 33.0-36. 0 L RED CELL DISTRIBUTION WIDTH (test code = RDW) 13.6 % 11.6-16. 2 N RED CELL DISTRIBUTION WIDTH SD (test code = RDW-SD) 46.5 fL 37 .0-51.0 N PLATELET COUNT (test code = PLT) 113 K/mm3 150-450 L MEAN PLATELET VOLUME (test code = MPV) 11.7 fL 6.7-11.0 H IMMATURE GRANULOCYTE % (test code = IG%) 1.1 % 0.0-5.0 N NUCLEATED RBC % (test code = NRBC%) 0.0 % 0-0 N NEUTROPHIL # (test code = NT#) 11.89 K/mm3 1.8-7.7 H IMMATURE GRANULOCYTE # (test code = IG#) 0.14 x10 3/uL 0-0.03 H LYMPHOCYTE # (test code = LY#) 0.69 K/mm3 1.0-5.0 L MONOCYTE # (test code = MO#) 0.42 K/mm3 0-0.8 N EOSINOPHIL # (test code = EO#) 0.05 K/mm3 0.0-0.5 N BASOPHIL # (test code = BA#) 0.04 K/mm3 0.0-0.2 N NUCLEATED RBC # (test code = NRBC#) 0.00 K/mm3 0.0-0.1 N MANUAL DIFF REQUIRED (test code = MDIFF) YES STAIN ACCEPTABILITY (test code = STN ACCEPTABLE) TOTAL CELLS COUNTED (test code = TCC) #CELLS SEGMENTED NEUTROPHILS (test code = SEG) % 39-69 LYMPHOCYTE (test code = LYMPH) % 25-55 MONOCYTE (test code = MON) % 0-10 MORPHOLOGY COMMENT (test code = MOC) PLATELET ESTIMATE (test code = PLTEST) PLATELET MORPHOLOGY (test code = PLTMORPH) CBC W/MANUAL [id number] 08:46:00* Test Item Value Reference Range Interpretation Comments WHITE BLOOD CELL (test code = WBC) 13.2 K/mm3 4.5-12.5 H RED BLOOD CELL (test code = RBC) 3.42 mill/mm3 3.7-5.2 L HEMOGLOBIN (test code = HGB) 10.1 gram/dL 11.5-15.5 L HEMATOCRIT (test code = HCT) 32.2 % 36.0-46.0 L MEAN CELL VOLUME (test code = MCV) 94.2 fL 80-98 N MEAN CELL HGB (test code = MCH) 29.5 picogram 27.0-33.0 N MEAN CELL HGB CONCETRATION (test code = MCHC) 31.4 gram/dL 33.0-36. 0 L RED CELL DISTRIBUTION WIDTH (test code = RDW) 13.6 % 11.6-16. 2 N RED CELL DISTRIBUTION WIDTH SD (test code = RDW-SD) 46.5 fL 37 .0-51.0 N PLATELET COUNT (test code = PLT) 113 K/mm3 150-450 L MEAN PLATELET VOLUME (test code = MPV) 11.7 fL 6.7-11.0 H IMMATURE GRANULOCYTE % (test code = IG%) 1.1 % 0.0-5.0 N NUCLEATED RBC % (test code = NRBC%) 0.0 % 0-0 N NEUTROPHIL # (test code = NT#) 11.89 K/mm3 1.8-7.7 H IMMATURE GRANULOCYTE # (test code = IG#) 0.14 x10 3/uL 0-0.03 H LYMPHOCYTE # (test code = LY#) 0.69 K/mm3 1.0-5.0 L MONOCYTE # (test code = MO#) 0.42 K/mm3 0-0.8 N EOSINOPHIL # (test code = EO#) 0.05 K/mm3 0.0-0.5 N BASOPHIL # (test code = BA#) 0.04 K/mm3 0.0-0.2 N NUCLEATED RBC # (test code = NRBC#) 0.00 K/mm3 0.0-0.1 N MANUAL DIFF REQUIRED (test code = MDIFF) YES STAIN ACCEPTABILITY (test code = STN ACCEPTABLE) TOTAL CELLS COUNTED (test code = TCC) #CELLS SEGMENTED NEUTROPHILS (test code = SEG) % 39-69 LYMPHOCYTE (test code = LYMPH) % 25-55 MONOCYTE (test code = MON) % 0-10 EOSINOPHIL (test code = EOS) % 0.0-5.0 CABOT RINGS (test code = CAB) MORPHOLOGY COMMENT (test code = MOC) PLATELET ESTIMATE (test code = PLTEST) PLATELET MORPHOLOGY (test code = PLTMORPH) URINALYSIS [id number] 03:08:00* Test Item Value Reference Range Interpretation Comments UA COLOR (test code = COLU) YELLOW YELLOW UA APPEARANCE (test code = APPU) Cloudy CLEAR A UA GLUCOSE DIPSTICK (test code = DGLUU) NEGATIVE mg/dL NEGATIVE UA BILIRUBIN DIPSTICK (test code = BILU) NEGATIVE mg/dL NEGATIVE UA KETONE DIPSTICK (test code = KETU) NEGATIVE mg/dL NEGATIVE UA SPECIFIC GRAVITY (test code = SGU) 1.016 1.001-1.035 UA BLOOD DIPSTICK (test code = VU) 1.0 mg/dL (3+) mg/dL NEGATIVE A UA PH DIPSTICK (test code = NIDHI) 7.0 5.0-8.0 UA PROTEIN DIPSTICK (test code = PROU) 70 (1+) mg/dL NEGATIVE A UA UROBILINIOGEN DIPSTICK (test code = URO) Normal mg/dL NEGATIVE UA NITRITE DIPSTICK (test code = DENISE) NEGATIVE NEGATIVE UA LEUKOCYTE ESTERASE W REFLEX (test code = LEUUR) 500 Fermin/u L (3+) Fermin/uL NEGATIVE A UA WBC (test code = WBCU) >200 per HPF 0-5 A UA RBC (test code = RBCU) 21-50Y #/HPF 0-5 UA WBC CLUMPS (test code = WBCUCL) >10 /HPF NONE A UA EPITHELIAL CELLS (test code = EPIU) Moderate (5-10/hpf) per HPF Few UA BACTERIA (test code = BACU) MANY #/HPF NONE A UA RENAL CELLS (test code = JASON) 3-5 #/HPF 0-5 UA TRIPLE PHOSPHATE CRYSTALS (test code = TRPHOSU) MODERATE per LPF NONE A UA MUCUS (test code = MUCU) FEW #/LPF FEW Urine Source? Clean CatchPROTHROMBIN [id number] 22:45:00* Test Item Value Reference Range Interpretation Comments PROTHROMBIN TIME PATIENT (test code = PTP) 14.1 seconds 9.0-14.0 H INTERNATIONAL NORMAL RATIO (test code = INR) 1.2 0.8-1.2 N The therapeutic range for oral anticoagulant therapy formost indications is an international normalized ratio (INR)of between 2.0 and 3.0. The recommended therapeutic INRrange for various clinical situations is listed below: Clinical Situation INR range Pulmonary e mbolism treatment (2.0-3.0)Venous thrombosis treatmentVenous thrombosis prophylaxis (high risk surgery)Prevention of systemic embolism from: Acute myocardial infarction Valvular heart disease Atrial fibrillation Mechanical prosthetic heart valves (2.5-3.5) HEMOLYZED, REDRAW REQUESTED FROM JET THEODORE V.LAB.LL06/26/19 1936IS PATIENT O N ANTICOAGULANTS? NTHROMBOPLASTIN TIME [id number] 22:45:00* Test Item Value Reference Range Interpretation Comments THROMBOPLASTIN TIME PARTIAL (test code = PTT) 30.4 seconds 25.0-36. 5 N HEMOLYZED, REDRAW REQUESTED FROM JET THEODORE V.LAB.LL06/26/19 193IS PATIENT O N ANTICOAGULANTS? NCBC W/MANUAL [id number] 22:12:00* Test Item Value Reference Range Interpretation Comments WHITE BLOOD CELL (test code = WBC) 16.0 K/mm3 4.5-12.5 H RED BLOOD CELL (test code = RBC) 3.73 mill/mm3 3.7-5.2 N HEMOGLOBIN (test code = HGB) 10.8 gram/dL 11.5-15.5 L HEMATOCRIT (test code = HCT) 34.1 % 36.0-46.0 L MEAN CELL VOLUME (test code = MCV) 91.4 fL 80-98 N MEAN CELL HGB (test code = MCH) 29.0 picogram 27.0-33.0 N MEAN CELL HGB CONCETRATION (test code = MCHC) 31.7 gram/dL 33.0-36. 0 L RED CELL DISTRIBUTION WIDTH (test code = RDW) 13.4 % 11.6-16. 2 N RED CELL DISTRIBUTION WIDTH SD (test code = RDW-SD) 45.3 fL 37 .0-51.0 N PLATELET COUNT (test code = PLT) 136 K/mm3 150-450 L MEAN PLATELET VOLUME (test code = MPV) 11.2 fL 6.7-11.0 H IMMATURE GRANULOCYTE % (test code = IG%) 0.8 % 0.0-5.0 N NUCLEATED RBC % (test code = NRBC%) 0.0 % 0-0 N NEUTROPHIL # (test code = NT#) 14.75 K/mm3 1.8-7.7 H IMMATURE GRANULOCYTE # (test code = IG#) 0.13 x10 3/uL 0-0.03 H LYMPHOCYTE # (test code = LY#) 0.67 K/mm3 1.0-5.0 L MONOCYTE # (test code = MO#) 0.40 K/mm3 0-0.8 N EOSINOPHIL # (test code = EO#) 0.00 K/mm3 0.0-0.5 N BASOPHIL # (test code = BA#) 0.04 K/mm3 0.0-0.2 N NUCLEATED RBC # (test code = NRBC#) 0.00 K/mm3 0.0-0.1 N MANUAL DIFF REQUIRED (test code = MDIFF) YES STAIN ACCEPTABILITY (test code = STN ACCEPTABLE) STAIN ACCEPTABLE TOTAL CELLS COUNTED (test code = TCC) 115 #CELLS SEGMENTED NEUTROPHILS (test code = SEG) 83.5 % 39-69 H BAND NEUTROPHIL (test code = BAND) 9.5 % 0-10 N LYMPHOCYTE (test code = LYMPH) 3.5 % 25-55 L REACTIVE LYMPH (test code = RELYMPH) 0 % MONOCYTE (test code = MON) 2.6 % 0-10 N EOSINOPHIL (test code = EOS) 0 % 0.0-5.0 N BASOPHIL (test code = BASO) 0 % 0-1.0 N METAMYELOCYTE (test code = META) 0.9 % 0-0 H MYELOCYTE (test code = MYELO) 0 % 0.0-0.0 N PROMYELOCYTE (test code = PROM) 0 % 0-0 N MORPHOLOGY COMMENT (test code = MOC) NORMAL PLATELET ESTIMATE (test code = PLTEST) ADEQUATE PLATELET MORPHOLOGY (test code = PLTMORPH) NORMAL IMMATURE FORMS (test code = IMMAT) 0 % 0-0 N [id number] 20:05:00* Test Item Value Reference Range Interpretation Comments MAGNESIUM (test code = MAG) 2.2 mg/dL 1.8-2.4 N B-TYPE NATRIURETIC [id number] 20:05:00* Test Item Value Reference Range Interpretation Comments B-TYPE NATRIURETIC PEPTIDE (test code = BNP) 144.16 pgram/mL 0-100 H LACTIC [id number] 19:27:00* Test Item Value Reference Range Interpretation Comments LACTIC ACID (test code = LACT) 1.0 mmol/L 0.4-1.9 N BASIC METABOLIC [id number] 19:26:00* Test Item Value Reference Range Interpretation Comments SODIUM (test code = NA) 154 mmol/L 136-145 H POTASSIUM (test code = K) 3.1 mmol/L 3.5-5.1 L CHLORIDE (test code = CL) 120.0 mmol/L 98-107 H CARBON DIOXIDE (test code = CO2) 25.0 mmol/L 21-32 N ANION GAP (test code = GAP) 12.1 10-20 N GLUCOSE (test code = GLU) 92 mg/dL 74-106 N BLOOD UREA NITROGEN (test code = BUN) 69 mg/dL 7-18 H GLOMERULAR FILTRATION RATE (test code = GFR) 20 mL/min >=60 Estimated GFR by using Modified MDRD formula.Chronic kidney disease is defined as either kidney damageor GFR <60 mL/min/1.73 m2 for >3 months. CREATININE (test code = CREAT) 2.40 mg/dL 0.55-1.02 H Note change in reference range due to change in reagent. BUN/CREATININE RATIO (test code = BUN/CREA) 29.1 10-20 H CALCIUM (test code = CA) 7.7 mg/dL 8.5-10.1 L HEPATIC FUNCTION [id number] 19:26:00* Test Item Value Reference Range Interpretation Comments TOTAL PROTEIN (test code = PROT) 5.4 gram/dL 6.4-8.2 L ALBUMIN (test code = ALB) 1.9 g/dL 3.4-5.0 L GLOBULIN (test code = GLOB) 3.5 gram/dL 2.7-4.2 N ALBUMIN/GLOBULIN RATIO (test code = A/G) 0.5 0.75-1.50 L BILIRUBIN TOTAL (test code = BILT) 0.50 mg/dL 0.0-1.0 N BILIRUBIN DIRECT (test code = BILD) 0.15 mg/dL 0.0-0.20 N SGOT/AST (test code = AST) 25 IUnit/L 15-37 N SGPT/ALT (test code = ALT) 20 IUnit/L 12-78 N ALKALINE PHOSPHATASE TOTAL (test code = ALKP) 109 IUnit/L 45-117 N Note change in reference range due to change in reagent. [id number] 19:26:00* Test Item Value Reference Range Interpretation Comments TROPONIN-I (test code = TROPI) <0.015 ng/mL 0-0.045 N CBC W/MANUAL [id number] 19:25:00* Test Item Value Reference Range Interpretation Comments WHITE BLOOD CELL (test code = WBC) 16.0 K/mm3 4.5-12.5 H RED BLOOD CELL (test code = RBC) 3.73 mill/mm3 3.7-5.2 N HEMOGLOBIN (test code = HGB) 10.8 gram/dL 11.5-15.5 L HEMATOCRIT (test code = HCT) 34.1 % 36.0-46.0 L MEAN CELL VOLUME (test code = MCV) 91.4 fL 80-98 N MEAN CELL HGB (test code = MCH) 29.0 picogram 27.0-33.0 N MEAN CELL HGB CONCETRATION (test code = MCHC) 31.7 gram/dL 33.0-36. 0 L RED CELL DISTRIBUTION WIDTH (test code = RDW) 13.4 % 11.6-16. 2 N RED CELL DISTRIBUTION WIDTH SD (test code = RDW-SD) 45.3 fL 37 .0-51.0 N PLATELET COUNT (test code = PLT) 136 K/mm3 150-450 L MEAN PLATELET VOLUME (test code = MPV) 11.2 fL 6.7-11.0 H IMMATURE GRANULOCYTE % (test code = IG%) 0.8 % 0.0-5.0 N NUCLEATED RBC % (test code = NRBC%) 0.0 % 0-0 N NEUTROPHIL # (test code = NT#) 14.75 K/mm3 1.8-7.7 H IMMATURE GRANULOCYTE # (test code = IG#) 0.13 x10 3/uL 0-0.03 H LYMPHOCYTE # (test code = LY#) 0.67 K/mm3 1.0-5.0 L MONOCYTE # (test code = MO#) 0.40 K/mm3 0-0.8 N EOSINOPHIL # (test code = EO#) 0.00 K/mm3 0.0-0.5 N BASOPHIL # (test code = BA#) 0.04 K/mm3 0.0-0.2 N NUCLEATED RBC # (test code = NRBC#) 0.00 K/mm3 0.0-0.1 N MANUAL DIFF REQUIRED (test code = MDIFF) YES STAIN ACCEPTABILITY (test code = STN ACCEPTABLE) TOTAL CELLS COUNTED (test code = TCC) #CELLS SEGMENTED NEUTROPHILS (test code = SEG) % 39-69 LYMPHOCYTE (test code = LYMPH) % 25-55 MONOCYTE (test code = MON) % 0-10 EOSINOPHIL (test code = EOS) % 0.0-5.0 CABOT RINGS (test code = CAB) MORPHOLOGY COMMENT (test code = MOC) PLATELET ESTIMATE (test code = PLTEST) PLATELET MORPHOLOGY (test code = PLTMORPH) CBC W/MANUAL [id number] 19:25:00* Test Item Value Reference Range Interpretation Comments WHITE BLOOD CELL (test code = WBC) 16.0 K/mm3 4.5-12.5 H RED BLOOD CELL (test code = RBC) 3.73 mill/mm3 3.7-5.2 N HEMOGLOBIN (test code = HGB) 10.8 gram/dL 11.5-15.5 L HEMATOCRIT (test code = HCT) 34.1 % 36.0-46.0 L MEAN CELL VOLUME (test code = MCV) 91.4 fL 80-98 N MEAN CELL HGB (test code = MCH) 29.0 picogram 27.0-33.0 N MEAN CELL HGB CONCETRATION (test code = MCHC) 31.7 gram/dL 33.0-36. 0 L RED CELL DISTRIBUTION WIDTH (test code = RDW) 13.4 % 11.6-16. 2 N RED CELL DISTRIBUTION WIDTH SD (test code = RDW-SD) 45.3 fL 37 .0-51.0 N PLATELET COUNT (test code = PLT) 136 K/mm3 150-450 L MEAN PLATELET VOLUME (test code = MPV) 11.2 fL 6.7-11.0 H IMMATURE GRANULOCYTE % (test code = IG%) 0.8 % 0.0-5.0 N NUCLEATED RBC % (test code = NRBC%) 0.0 % 0-0 N NEUTROPHIL # (test code = NT#) 14.75 K/mm3 1.8-7.7 H IMMATURE GRANULOCYTE # (test code = IG#) 0.13 x10 3/uL 0-0.03 H LYMPHOCYTE # (test code = LY#) 0.67 K/mm3 1.0-5.0 L MONOCYTE # (test code = MO#) 0.40 K/mm3 0-0.8 N EOSINOPHIL # (test code = EO#) 0.00 K/mm3 0.0-0.5 N BASOPHIL # (test code = BA#) 0.04 K/mm3 0.0-0.2 N NUCLEATED RBC # (test code = NRBC#) 0.00 K/mm3 0.0-0.1 N MANUAL DIFF REQUIRED (test code = MDIFF) YES STAIN ACCEPTABILITY (test code = STN ACCEPTABLE) TOTAL CELLS COUNTED (test code = TCC) #CELLS SEGMENTED NEUTROPHILS (test code = SEG) % 39-69 LYMPHOCYTE (test code = LYMPH) % 25-55 MONOCYTE (test code = MON) % 0-10 EOSINOPHIL (test code = EOS) % 0.0-5.0 CABOT RINGS (test code = CAB) MORPHOLOGY COMMENT (test code = MOC) PLATELET ESTIMATE (test code = PLTEST) PLATELET MORPHOLOGY (test code = PLTMORPH) CBC W/MANUAL [id number] 19:25:00* Test Item Value Reference Range Interpretation Comments WHITE BLOOD CELL (test code = WBC) 16.0 K/mm3 4.5-12.5 H RED BLOOD CELL (test code = RBC) 3.73 mill/mm3 3.7-5.2 N HEMOGLOBIN (test code = HGB) 10.8 gram/dL 11.5-15.5 L HEMATOCRIT (test code = HCT) 34.1 % 36.0-46.0 L MEAN CELL VOLUME (test code = MCV) 91.4 fL 80-98 N MEAN CELL HGB (test code = MCH) 29.0 picogram 27.0-33.0 N MEAN CELL HGB CONCETRATION (test code = MCHC) 31.7 gram/dL 33.0-36. 0 L RED CELL DISTRIBUTION WIDTH (test code = RDW) 13.4 % 11.6-16. 2 N RED CELL DISTRIBUTION WIDTH SD (test code = RDW-SD) 45.3 fL 37 .0-51.0 N PLATELET COUNT (test code = PLT) 136 K/mm3 150-450 L MEAN PLATELET VOLUME (test code = MPV) 11.2 fL 6.7-11.0 H IMMATURE GRANULOCYTE % (test code = IG%) 0.8 % 0.0-5.0 N NUCLEATED RBC % (test code = NRBC%) 0.0 % 0-0 N NEUTROPHIL # (test code = NT#) 14.75 K/mm3 1.8-7.7 H IMMATURE GRANULOCYTE # (test code = IG#) 0.13 x10 3/uL 0-0.03 H LYMPHOCYTE # (test code = LY#) 0.67 K/mm3 1.0-5.0 L MONOCYTE # (test code = MO#) 0.40 K/mm3 0-0.8 N EOSINOPHIL # (test code = EO#) 0.00 K/mm3 0.0-0.5 N BASOPHIL # (test code = BA#) 0.04 K/mm3 0.0-0.2 N NUCLEATED RBC # (test code = NRBC#) 0.00 K/mm3 0.0-0.1 N MANUAL DIFF REQUIRED (test code = MDIFF) YES STAIN ACCEPTABILITY (test code = STN ACCEPTABLE) TOTAL CELLS COUNTED (test code = TCC) #CELLS SEGMENTED NEUTROPHILS (test code = SEG) % 39-69 LYMPHOCYTE (test code = LYMPH) % 25-55 MONOCYTE (test code = MON) % 0-10 EOSINOPHIL (test code = EOS) % 0.0-5.0 MORPHOLOGY COMMENT (test code = MOC) PLATELET ESTIMATE (test code = PLTEST) PLATELET MORPHOLOGY (test code = PLTMORPH) CBC W/MANUAL [id number] 19:25:00* Test Item Value Reference Range Interpretation Comments WHITE BLOOD CELL (test code = WBC) 16.0 K/mm3 4.5-12.5 H RED BLOOD CELL (test code = RBC) 3.73 mill/mm3 3.7-5.2 N HEMOGLOBIN (test code = HGB) 10.8 gram/dL 11.5-15.5 L HEMATOCRIT (test code = HCT) 34.1 % 36.0-46.0 L MEAN CELL VOLUME (test code = MCV) 91.4 fL 80-98 N MEAN CELL HGB (test code = MCH) 29.0 picogram 27.0-33.0 N MEAN CELL HGB CONCETRATION (test code = MCHC) 31.7 gram/dL 33.0-36. 0 L RED CELL DISTRIBUTION WIDTH (test code = RDW) 13.4 % 11.6-16. 2 N RED CELL DISTRIBUTION WIDTH SD (test code = RDW-SD) 45.3 fL 37 .0-51.0 N PLATELET COUNT (test code = PLT) 136 K/mm3 150-450 L MEAN PLATELET VOLUME (test code = MPV) 11.2 fL 6.7-11.0 H IMMATURE GRANULOCYTE % (test code = IG%) 0.8 % 0.0-5.0 N NUCLEATED RBC % (test code = NRBC%) 0.0 % 0-0 N NEUTROPHIL # (test code = NT#) 14.75 K/mm3 1.8-7.7 H IMMATURE GRANULOCYTE # (test code = IG#) 0.13 x10 3/uL 0-0.03 H LYMPHOCYTE # (test code = LY#) 0.67 K/mm3 1.0-5.0 L MONOCYTE # (test code = MO#) 0.40 K/mm3 0-0.8 N EOSINOPHIL # (test code = EO#) 0.00 K/mm3 0.0-0.5 N BASOPHIL # (test code = BA#) 0.04 K/mm3 0.0-0.2 N NUCLEATED RBC # (test code = NRBC#) 0.00 K/mm3 0.0-0.1 N MANUAL DIFF REQUIRED (test code = MDIFF) YES STAIN ACCEPTABILITY (test code = STN ACCEPTABLE) TOTAL CELLS COUNTED (test code = TCC) #CELLS SEGMENTED NEUTROPHILS (test code = SEG) % 39-69 LYMPHOCYTE (test code = LYMPH) % 25-55 MONOCYTE (test code = MON) % 0-10 MORPHOLOGY COMMENT (test code = MOC) PLATELET ESTIMATE (test code = PLTEST) PLATELET MORPHOLOGY (test code = PLTMORPH) CBC W/MANUAL [id number] 19:25:00* Test Item Value Reference Range Interpretation Comments WHITE BLOOD CELL (test code = WBC) 16.0 K/mm3 4.5-12.5 H RED BLOOD CELL (test code = RBC) 3.73 mill/mm3 3.7-5.2 N HEMOGLOBIN (test code = HGB) 10.8 gram/dL 11.5-15.5 L HEMATOCRIT (test code = HCT) 34.1 % 36.0-46.0 L MEAN CELL VOLUME (test code = MCV) 91.4 fL 80-98 N MEAN CELL HGB (test code = MCH) 29.0 picogram 27.0-33.0 N MEAN CELL HGB CONCETRATION (test code = MCHC) 31.7 gram/dL 33.0-36. 0 L RED CELL DISTRIBUTION WIDTH (test code = RDW) 13.4 % 11.6-16. 2 N RED CELL DISTRIBUTION WIDTH SD (test code = RDW-SD) 45.3 fL 37 .0-51.0 N PLATELET COUNT (test code = PLT) 136 K/mm3 150-450 L MEAN PLATELET VOLUME (test code = MPV) 11.2 fL 6.7-11.0 H IMMATURE GRANULOCYTE % (test code = IG%) 0.8 % 0.0-5.0 N NUCLEATED RBC % (test code = NRBC%) 0.0 % 0-0 N NEUTROPHIL # (test code = NT#) 14.75 K/mm3 1.8-7.7 H IMMATURE GRANULOCYTE # (test code = IG#) 0.13 x10 3/uL 0-0.03 H LYMPHOCYTE # (test code = LY#) 0.67 K/mm3 1.0-5.0 L MONOCYTE # (test code = MO#) 0.40 K/mm3 0-0.8 N EOSINOPHIL # (test code = EO#) 0.00 K/mm3 0.0-0.5 N BASOPHIL # (test code = BA#) 0.04 K/mm3 0.0-0.2 N NUCLEATED RBC # (test code = NRBC#) 0.00 K/mm3 0.0-0.1 N MANUAL DIFF REQUIRED (test code = MDIFF) YES STAIN ACCEPTABILITY (test code = STN ACCEPTABLE) TOTAL CELLS COUNTED (test code = TCC) #CELLS SEGMENTED NEUTROPHILS (test code = SEG) % 39-69 LYMPHOCYTE (test code = LYMPH) % 25-55 MONOCYTE (test code = MON) % 0-10 EOSINOPHIL (test code = EOS) % 0.0-5.0 CABOT RINGS (test code = CAB) MORPHOLOGY COMMENT (test code = MOC) PLATELET ESTIMATE (test code = PLTEST) PLATELET MORPHOLOGY (test code = PLTMORPH) BASIC METABOLIC [id number] 19:17:00* Test Item Value Reference Range Interpretation Comments SODIUM (test code = NA) 154 mmol/L 136-145 H POTASSIUM (test code = K) 3.1 mmol/L 3.5-5.1 L CHLORIDE (test code = CL) 120.0 mmol/L 98-107 H CARBON DIOXIDE (test code = CO2) mmol/L 21-32 ANION GAP (test code = GAP) 10-20 GLUCOSE (test code = GLU) mg/dL 74-106 BLOOD UREA NITROGEN (test code = BUN) mg/dL 7-18 GLOMERULAR FILTRATION RATE (test code = GFR) mL/min >=60 CREATININE (test code = CREAT) mg/dL 0.55-1.02 BUN/CREATININE RATIO (test code = BUN/CREA) 10-20 CALCIUM (test code = CA) mg/dL 8.5-10.1 HEPATIC FUNCTION [id number] 19:17:00* Test Item Value Reference Range Interpretation Comments TOTAL PROTEIN (test code = PROT) gram/dL 6.4-8.2 ALBUMIN (test code = ALB) g/dL 3.4-5.0 GLOBULIN (test code = GLOB) gram/dL 2.7-4.2 ALBUMIN/GLOBULIN RATIO (test code = A/G) 0.75-1.50 BILIRUBIN TOTAL (test code = BILT) mg/dL 0.0-1.0 BILIRUBIN DIRECT (test code = BILD) mg/dL 0.0-0.20 SGOT/AST (test code = AST) IUnit/L 15-37 SGPT/ALT (test code = ALT) IUnit/L 12-78 ALKALINE PHOSPHATASE TOTAL (test code = ALKP) IUnit/L 45-117 [id number] 19:17:00* Test Item Value Reference Range Interpretation Comments TROPONIN-I (test code = TROPI) ng/mL 0-0.045 POC LACTIC [id number] 18:59:00* Test Item Value Reference Range Interpretation Comments POC LACTIC ACID (test code = POCLAC) 1.19 MMOL/L 0.4-2.2 N - XR CHEST 1 [id number] 18:58:00 FAX: Ashley Denis [phone] [place]: [address]: PRE Name: Rose Mary GALLAGHERSADAVIN [facility] : [birth year] Age/S: 68/F [address] [facility] [address] #: [id number] Loc: [place] [address] Phys: Ashley Atkinson Acct: [id number] Dis Date: Status: PRE ER PHONE #: [phone] Exam Date: 06/26/2019 1850 FAX #: [phone] Reason: CODE SEPSIS EXAMS: CPT CODE: [id number] XR CHEST 1 V [id number] REASON FOR EXAM: CODE SEPS IS EXAM ORDER DATE: 06/26/2019 6:34 PM Ordering Caitie: Ashley Atknison MD PROCEDURE: - XR CHEST 1 V CO MPARISON: FINDINGS: Portable AP frontal view of the chest obtaine d at 6:48 PM shows clear lungs without evidence of consolidation. There is no evidence of effusion. The heart size is minimally enlarged. Pulmonary vasculatures are unremarkable. IMPRESSION: No active dise ase. at 1858 Reported and signed by: Richie Howard M.D. CC: Ashley Atkinson MD Technologist: CAN CHANEY RT (R) Trnscrd Date/Time/By: 06/26/20 19 (1857) : By: ShirleyVTL Orig Print D/T: S: 06/26/2019 (190) PAGE 1 Signed Report - CT ABD PELVIS W/[id number] 02:44:00 Name: SADA KARIMI [facility] : 1950 Age/S: 68 / F [address] [facility] [address] #: [id number] Loc: [place] [address] Phys: Carla Hunt MD Acct: [id number] Dis Date: Status: REG ER PHONE #: [phone] Exam Date: 05/05/2019 0215 FAX #: [phone] Reason: ABD PAIN EXAMS: CPT CODE: [id number] CT ABD PELVIS W/CONT [id number] EXAM: - CT ABD PELVIS W/CONT HISTORY: Abdominal pain. TECHNIQUE: Axial tomograms through the abdomen and pelvis were obtained after intravenous contrast. Coronal and sagittal reformatted images are provided. This exam was performed according to our departmental dose-optimization program, which includes automated exposure control, adjustment of the mA and/or kV a ccording to patient size and/or use of iterative reconstruction technique. COMPARISON: None available time of interpretation. FINDINGS: The visualized lung bases are clear. Again noted is a ch ronic trace pericardial effusion. Calcific plaques in daniels ry arteries. Status post cholecystectomy. The liver, spleen, pancreas, adrenal glands and kidneys demonstrate no significant abnormali ties. No hydronephrosis. The appendix has a normal appearanc e. The bowel is unremarkable. There is no adenopathy or free flui d. Suprapubic urinary bladder catheter is present. The urinary lucian dder is decompressed. There is minimal chronic urinary bladder wall thickening. The osseous structures demonstrate degenerative parrish e without focal lesion. There is calcified plaque involving the abdominal aorta and it's major branching vessels. IMPRESSIO N: No definite acute abnormality. Multiple c hronic findings as above. PAGE 1 Signed Report (CONTINUED) Name: SADA KARIMI [facility] : 1950 Age/S: 68 / F [address] [facility] [address] #: [id number] Loc: [place] [address] Phys: Carla Hunt MD Acct: [id number] Dis Date: Status: REG ER PHONE #: [phone] Exam Date: 05/05/2019 021 FAX #: [phone] Reason: ABD PAIN EXAMS: CPT CODE: [id number] CT ABD PELVIS W/CONT [id number] < Continued> at 0244 Reported and signed by: Peyman Pereira MD CC: Carla Hunt MD Technologist:ISABELLE JACOBO CTDI: DLP: Trnscb Date/Time: 05/05/2019 (024) [id number] Orig Print D/T: S: 05/05/2019 (024) PAGE 2 Signed Report CBC W/AUTO [id number] 22:51:00* Test Item Value Reference Range Interpretation Comments WHITE BLOOD CELL (test code = WBC) 4.7 K/mm3 4.5-12.5 N RED BLOOD CELL (test code = RBC) 4.65 mill/mm3 3.7-5.2 N HEMOGLOBIN (test code = HGB) 14.0 gram/dL 11.5-15.5 N HEMATOCRIT (test code = HCT) 44.2 % 36.0-46.0 N MEAN CELL VOLUME (test code = MCV) 95.1 fL 80-98 N MEAN CELL HGB (test code = MCH) 30.1 picogram 27.0-33.0 N MEAN CELL HGB CONCETRATION (test code = MCHC) 31.7 gram/dL 33.0-36. 0 L RED CELL DISTRIBUTION WIDTH (test code = RDW) 12.7 % 11.6-16. 2 N RED CELL DISTRIBUTION WIDTH SD (test code = RDW-SD) 43.8 fL 37 .0-51.0 N PLATELET COUNT (test code = PLT) 158 K/mm3 150-450 N MEAN PLATELET VOLUME (test code = MPV) 10.1 fL 6.7-11.0 N NEUTROPHIL % (test code = NT%) 63.8 % 39.0-69.0 N IMMATURE GRANULOCYTE % (test code = IG%) 0.6 % 0.0-5.0 N LYMPHOCYTE % (test code = LY%) 23.2 % 25.0-55.0 L MONOCYTE % (test code = MO%) 6.3 % 0.0-10.0 N EOSINOPHIL % (test code = EO%) 5.3 % 0.0-5.0 H BASOPHIL % (test code = BA%) 0.8 % 0.0-1.0 N NUCLEATED RBC % (test code = NRBC%) 0.0 % 0-0 N NEUTROPHIL # (test code = NT#) 3.02 K/mm3 1.8-7.7 N IMMATURE GRANULOCYTE # (test code = IG#) 0.03 x10 3/uL 0-0.03 N LYMPHOCYTE # (test code = LY#) 1.10 K/mm3 1.0-5.0 N MONOCYTE # (test code = MO#) 0.30 K/mm3 0-0.8 N EOSINOPHIL # (test code = EO#) 0.25 K/mm3 0.0-0.5 N BASOPHIL # (test code = BA#) 0.04 K/mm3 0.0-0.2 N NUCLEATED RBC # (test code = NRBC#) 0.00 K/mm3 0.0-0.1 N MANUAL DIFF REQUIRED (test code = MDIFF) NO COMPREHENSIVE METABOLIC [id number] 22:44:00* Test Item Value Reference Range Interpretation Comments SODIUM (test code = NA) 144 mmol/L 136-145 N POTASSIUM (test code = K) 3.9 mmol/L 3.5-5.1 N CHLORIDE (test code = CL) 107.0 mmol/L 98-107 N CARBON DIOXIDE (test code = CO2) 32.0 mmol/L 21-32 N ANION GAP (test code = GAP) 8.9 10-20 L GLUCOSE (test code = GLU) 82 mg/dL 74-106 N BLOOD UREA NITROGEN (test code = BUN) 20 mg/dL 7-18 H GLOMERULAR FILTRATION RATE (test code = GFR) > 60 mL/min >=60 Estimated GFR by using Modified MDRD formula.Chronic kidney disease is defined as either kidney damageor GFR <60 mL/min/1.73 m2 for >3 months. CREATININE (test code = CREAT) 0.60 mg/dL 0.55-1.02 N Note change in reference range due to change in reagent. BUN/CREATININE RATIO (test code = BUN/CREA) 33.3 10-20 H TOTAL PROTEIN (test code = PROT) 6.9 gram/dL 6.4-8.2 N ALBUMIN (test code = ALB) 2.9 g/dL 3.4-5.0 L GLOBULIN (test code = GLOB) 4.0 gram/dL 2.7-4.2 N ALBUMIN/GLOBULIN RATIO (test code = A/G) 0.7 0.75-1.50 L CALCIUM (test code = CA) 9.0 mg/dL 8.5-10.1 N BILIRUBIN TOTAL (test code = BILT) 0.60 mg/dL 0.0-1.0 N SGOT/AST (test code = AST) 13 IUnit/L 15-37 L SGPT/ALT (test code = ALT) 11 IUnit/L 12-78 L ALKALINE PHOSPHATASE TOTAL (test code = ALKP) 130 IUnit/L 45-117 H Note change in reference range due to change in reagent. COMPREHENSIVE METABOLIC [id number] 22:37:00* Test Item Value Reference Range Interpretation Comments SODIUM (test code = NA) 144 mmol/L 136-145 N POTASSIUM (test code = K) 3.9 mmol/L 3.5-5.1 N CHLORIDE (test code = CL) 107.0 mmol/L 98-107 N CARBON DIOXIDE (test code = CO2) mmol/L 21-32 ANION GAP (test code = GAP) 10-20 GLUCOSE (test code = GLU) mg/dL 74-106 BLOOD UREA NITROGEN (test code = BUN) mg/dL 7-18 GLOMERULAR FILTRATION RATE (test code = GFR) mL/min >=60 CREATININE (test code = CREAT) mg/dL 0.55-1.02 BUN/CREATININE RATIO (test code = BUN/CREA) 10-20 TOTAL PROTEIN (test code = PROT) gram/dL 6.4-8.2 ALBUMIN (test code = ALB) g/dL 3.4-5.0 GLOBULIN (test code = GLOB) gram/dL 2.7-4.2 ALBUMIN/GLOBULIN RATIO (test code = A/G) 0.75-1.50 CALCIUM (test code = CA) mg/dL 8.5-10.1 BILIRUBIN TOTAL (test code = BILT) mg/dL 0.0-1.0 SGOT/AST (test code = AST) IUnit/L 15-37 SGPT/ALT (test code = ALT) IUnit/L 12-78 ALKALINE PHOSPHATASE TOTAL (test code = ALKP) IUnit/L 45-117 URINALYSIS [id number] 19:29:00* Test Item Value Reference Range Interpretation Comments UA COLOR (test code = COLU) YELLOW YELLOW UA APPEARANCE (test code = APPU) TURBID CLEAR A UA GLUCOSE DIPSTICK (test code = DGLUU) NEGATIVE mg/dL NEGATIVE UA BILIRUBIN DIPSTICK (test code = BILU) NEGATIVE mg/dL NEGATIVE UA KETONE DIPSTICK (test code = KETU) NEGATIVE mg/dL NEGATIVE UA SPECIFIC GRAVITY (test code = SGU) 1.015 1.001-1.035 UA BLOOD DIPSTICK (test code = VU) 3+ (Large) mg/dL NEGATIVE A UA PH DIPSTICK (test code = NIDHI) 6.0 5.0-8.0 UA PROTEIN DIPSTICK (test code = PROU) 30 (1+) mg/dL NEGATIVE A UA UROBILINIOGEN DIPSTICK (test code = URO) NEGATIVE mg/dL NEGATIVE UA NITRITE DIPSTICK (test code = DENISE) POSITIVE NEGATIVE A UA LEUKOCYTE ESTERASE W REFLEX (test code = LEUUR) 3+ Fermin/uL NEG ATIVE A UA WBC (test code = WBCU) >50 per HPF 0-5 A UA RBC (test code = RBCU) >20 #/HPF 0-5 A UA WBC CLUMPS (test code = WBCUCL) >10 /HPF NONE A UA EPITHELIAL CELLS (test code = EPIU) Rare (0-1/hpf) per HPF FEW UA BACTERIA (test code = BACU) MODERATE #/HPF NONE A UA MUCUS (test code = MUCU) FEW #/LPF FEW Urine Source? Clean Catch
== END | disposition home or self-care (01) ==
LOC: OR 07:11
PROVIDERS: ATTEND Urology
DX: N20.0 Calculus of kidney (principal); N39.0 Urinary tract infection, site not specified; N18.9 Chronic kidney disease, unspecified; G47.33 Obstructive sleep apnea (adult) (pediatric); I69.321 Dysphasia following cerebral infarction; E03.9 Hypothyroidism, unspecified; G89.29 Other chronic pain; I25.10 Atherosclerotic heart disease of native coronary artery without angina pectoris; I50.9 Heart failure, unspecified; E78.5 Hyperlipidemia, unspecified; K21.9 Gastro-esophageal reflux disease without esophagitis; F03.90 Unspecified dementia, unspecified severity, without behavioral disturbance, psychotic disturbance, mood disturbance, and anxiety; F32.9 Major depressive disorder, single episode, unspecified; R00.1 Bradycardia, unspecified; Z46.6 Encounter for fitting and adjustment of urinary device; Z43.5 Encounter for attention to cystostomy; Z79.82 Long term (current) use of aspirin
CPT/HCPCS: 51705; 52332; 52356; 74420; C1758; C2617; J0690; J3010; J3260; Q9967

== ENCOUNTER 2020-08-07 17:17 | Inpatient (IN) | payer MEDICARE, OTHER ==
[~2020-08-07] VITALS: Ht 160 cm; Wt 86.2 kg
[~2020-08-07 17:17] MED LIST changes: -B&O 60MG R/S 60 MG SUPP PR ONE; -BUPIVACAINE HCL 0.5% INJ 30 ML VIAL INJ ONE; -CEFAZOLIN SOD 1 GM/NS 50ML 50 ML IV ONE; -ETOMIDATE 2 MG/ML 10 ML INJ IV ONE; -FENTANYL CITRATE/PF 100MCG/2 ML INJ ONE; -IOPAMIDOL 300MG/ML 50ML INFUS..BTL IV ONE; -LIDOCAINE 1% W/EPINEPHRINE 20 ML VIAL ONE; -SEVOFLURANE INHAL SOLN 250 ML PEN BTL ONE; -SODIUM CHLORIDE 0.9% IV ONE; -TOBRAMYCIN 40 MG/ML 2ML VIAL IV ONE; -TOBRAMYCIN IV ONE
--- OUTSIDE RECORDS SUMMARY | 2020-08-07 17:42 | XMS REPORT | Continuity of Care Document ---
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 Name Role Phone MD Miguel BRODYUL PCP HAMPEL, NEHEMIA Attphys Unavailable KILLAM, JUANY Attphys Unavailable KILLAM, JUANY Admphys Unavailable Payers Payer Name Policy Type Policy Number Effective Date Expiration Date S ource Medicare A & B NA 2015 00:00:00 [facility] TM NA 2015 00:00:00 [facility] NA [facility] Problems Condition Name Condition Details Condition Category Status Onset Date Resolution Date Last Treatment Date Treating Clinician Comments Source Urinary tract infection Problem Active [facility] Weakness Problem Active [facility] Dementia Problem Active [facility] Pseudomonas urinary tract infection Problem Active [facility] Allergies, Adverse Reactions, Alerts Allergy Name Allergy Type Status Severity Reaction(s) Onset Date Inacti ve Date Treating Clinician Comments Source No Known Allergies DA Active U 2020-03-24 00:00:00 [facility] No Known Allergies DA Active U 2019-06-26 00:00:00 [facility] No Known Allergies DA Active U 2019-05-04 00:00:00 [facility] No Known Allergies DA Active U 2019-03-07 00:00:00 [facility] No Known Allergies DA Active U 2017-11-26 00:00:00 [facility] Social History Social Habit Start Date Stop Date Quantity Comments Source Sex Assigned At 1950 00:00:00 1950 00:[birth year]:00 Female [facility] Medications Ordered Medication Name Filled Medication Name Start Date Stop Da te Current Medication? Ordering Clinician Indication Dosage Frequency Signature (SIG) Comments Components Source Aspirin Aspirin Yes 1 Daily [facility] Atorvastatin Calcium Atorvastatin Calcium Yes 40 Bedtime [facility] Dabigatran Etexilate Mesylate (Pradaxa) 75 Mg CAPSULE Dabigatran Etexilate Mesylate (Pradaxa) 75 Mg CAPSULE Yes 1 Twice A Day [facility] Docusate Sodium Docusate Sodium Yes 100 Daily [facility] Ferrous Sulfate Ferrous Sulfate Yes 1 Twice A Day [facility] Folic Acid/Cyanocob/Pyridoxine (Nephro-Annie Tablet) 1 Ea TAB Folic Acid/Cyanocob/Pyridoxine (Nephro-Annie Tablet) 1 Ea TAB Yes 1 Daily [facility] Lactulose Lactulose Yes 30 Daily [facility] Levothyroxine Sodium Levothyroxine Sodium Yes 75 Daily [facility] Metoprolol Tartrate Metoprolol Tartrate Yes 75 Every 12 Hours [facility] Midodrine Hcl Midodrine Hcl Yes 5 Twice A Day [facility] Ciprofloxacin Hcl (Cipro) 500 Mg TABLET Ciprofloxacin Hcl (C ipro) 500 Mg TABLET 2020-04-11 00:00:00 No 500 Every 12 Hours [facility] Vital [...] Date/Time End Date/Time Encounter Type Admission Type [facility] Care Department Encounter ID Source 2020-04-10 15:47:00 2020-04-11 18:48:00 Discharged Inpatient 1 JUANY AWAD [facility] [id number] [facility] Results Test Description Test Time Test Comments Results Result Comments Source RETROGRADE PYELOGRAM 2020-04-13 12:40:00 [facility] [address] [address] Patient Name: SADA KARIMI MR #: [id number] : 1950 Age/Sex: 69/F Req #: [id number] Adm Physician: Ordered by: ARSLAN GRIGSBY MD Report #: [id number] Location: OR Room/Bed: Procedure: [id number] DX/RETROGRADE PYELOGRAM Exam Date: 04/13/20 Exam Time: 47 REPORT STATUS: Signed OR Fluoroscopy: IMPRESSION: Fluoroscopy service provided in the OR. Interpretation not requested. Signed by: Josiah Gandhi MD on 04/13/2020 12:40 PM Dictated By: JOSIAH GANDHI MD [address] anscribed By: DAVID on 04/13/20 1240 COPY TO: HAMPEL,NEHEMIA MD Blood leukocytes automated count (number/volume) 2020-04-11 05:20:00 Test Item White Blood Count (test code = 6690-2) 5.09 4.8-10.8 [facility] automated count (number/volume)2020-04-11 05:20:00* Test Item Value Reference Range Interpretation Comments Red Blood Count (test code = 789-8) 3.81 3.6-5.1 [facility] hemoglobin measurement (moles/volume)2020-04-11 05:20:00* Test Item Value Reference Range Interpretation Comments Hemoglobin (test code = 91004-9) 10.2 12.0-16.0 [facility] CampusAutomated blood hematocrit (volume fraction)2020-04-11 05:20:00* Test Item Value Reference Range Interpretation Comments Hematocrit (test code = 4544-3) 34.0 34.2-44.1 [facility]Automated erythrocyte mean corpuscular ksbshv8783-11-66 05:20:00* Test Item Value Reference Range Interpretation Comments Mean Corpuscular Volume (test code = 787-2) 89.2 81-99 [facility] CampusAutomated erythrocyte mean corpuscular hemoglobin (mass per erythrocyte)2020-04-11 05:20:00* Test Item Value Reference Range Interpretation Comments Mean Corpuscular Hemoglobin (test code = 785-6) 26.8 28-32 [facility] CampusAutomated erythrocyte mean corpuscular hemoglobin concentration measurement (mass/volume)2020-04-11 05:20:00* Test Item Value Reference Range Interpretation Comments Mean Corpuscular Hemoglobin Concent (test code = 786-4) 30.0 31-35 [facility] CampusRDW FxjSz-Jmn6593-55-18 05:20:00* Test Item Value Reference Range Interpretation Comments Red Cell Distribution Width (test code = 51236-7) 15.9 11.7 -14.4 [facility] CampusAutomated blood platelet count (count/volume)2020-04-11 05:20:00* Test Item Value Reference Range Interpretation Comments Platelet Count (test code = 777-3) 144 140-360 [facility] CampusAutomated blood segmented neutrophil count as percentage of total vfvkpvlcbd0233-12-91 05:20:00* Test Item Value Reference Range Interpretation Comments Neutrophils (%) (Auto) (test code = 45385-7) 69.3 38.7-80.0 [facility] CampusAutomated blood lymphocyte count as percentage ot total ycusugorgv2200-98-30 05:20:00* Test Item Value Reference Range Interpretation Comments Lymphocytes (%) (Auto) (test code = 736-9) 17.7 18.0-39.1 [facility] CampusAutomated blood monocyte count as percentage of total vnacemzzph9810-53-68 05:20:00* Test Item Value Reference Range Interpretation Comments Monocytes (%) (Auto) (test code = 5905-5) 5.3 4.4-11.3 [facility] CampusAutomated blood eosinophil count as percentage of total hdwmmelkxr6552-63-50 05:20:00* Test Item Value Reference Range Interpretation Comments Eosinophils (%) (Auto) (test code = 713-8) 6.3 0.0-6.0 [facility] CampusAutomated blood basophil count as percentage of total kthyqwhwon8906-32-30 05:20:00* Test Item Value Reference Range Interpretation Comments Basophils (%) (Auto) (test code = 706-2) 1.0 0.0-1.0 [facility] CampusFluoroscopic procedure less than one hour vysnzgwj3777-77-65 05:20:00* Test Item Value Reference Range Interpretation Comments IM GRANULOCYTES % (test code = IM GRANULOCYTES %) 0.4 0.0- 1.0 [facility] CampusAutomated blood neutrophil count 2020-04-11 05:20:00* Test Item Value Reference Range Interpretation Comments Neutrophils # (Auto) (test code = 751-8) 3.5 2.1-6.9 [facility] lymphocytes count (number/volume) 2020-04-11 05:20:00* Test Item Value Reference Range Interpretation Comments Lymphocytes # (Auto) (test code = 96898-5) 0.9 1.0-3.2 [facility]Blood monocytes automated count (number/volume)2020-04-11 05:20:00* Test Item Value Reference Range Interpretation Comments Monocytes # (Auto) (test code = 742-7) 0.3 0.2-0.8 [facility] CampusAutomated blood eosinophil count 2020-04-11 05:20:00* Test Item Value Reference Range Interpretation Comments Eosinophils # (Auto) (test code = 711-2) 0.3 0.0-0.4 [facility] CampusAutomated blood basophil count (count/volume)2020-04-11 05:20:00* Test Item Value Reference Range Interpretation Comments Basophils # (Auto) (test code = 704-7) 0.1 0.0-0.1 [facility] CampusFluoroscopic procedure less than one hour uvdkeikp3937-10-64 05:20:00* Test Item Value Reference Range Interpretation Comments Absolute Immature Granulocyte (auto (kaz t code = Absolute Immature Granulocyte (auto) 0.02 0-0.[address] [facility] [place], [place]erum or plasma sodium measurement (moles/volume)2020-04-11 05:20:00* Test Item Value Reference Range Interpretation Comments Sodium Level (test code = 2951-2) 142 136-[address] [facility], TXerum or plasma potassium measurement (moles/volume)2020-04-11 05:20:00* Test Item Value Reference Range Interpretation Comments Potassium Level (test code = 2823-3) 3.9 3.5-5.[address] [facility], TXerum or plasma chloride measurement (moles/volume)2020-04-11 05:20:00* Test Item Value Reference Range Interpretation Comments Chloride Level (test code = 2075-0) 114 98-[address] [facility], TXerum or plasma carbon dioxide, total measurement (moles/volume)2020-04-11 05:20:00* Test Item Value Reference Range Interpretation Comments Carbon Dioxide Level (test code = 2028-9) 21 22-[address] [facility], TXerum or plasma anion otv4597-33-43 05:20:00* Test Item Value Reference Range Interpretation Comments Anion Gap (test code = 05734-7) 10.9 8-[address] [facility], TXerum or plasma urea nitrogen measurement (mass/volume)2020-04-11 05:20:00* Test Item Value Reference Range Interpretation Comments Blood Urea Nitrogen (test code = 3094-0) 11 7-[address] [facility], TXerum or plasma creatinine measurement (mass/volume)2020-04-11 05:20:00* Test Item Value Reference Range Interpretation Comments Creatinine (test code = 2160-0) 0.86 0.57-1.[address] [facility], TXerum or plasma urea nitrogen/creatinine mass fvmau3133-52-63 05:20:00* Test Item Value Reference Range Interpretation Comments BUN/Creatinine Ratio (test code = 3097-3) 13 6-25 [facility] CampusEstimated glomerular filtration rate (GFR) kgowjxxbnmlev2166-43-17 05:20:00* Test Item Value Reference Range Interpretation Comments Estimat Glomerular Filtration Rate (test code = 676142910) > 60 >60 Ranges were taken from the National Kidney Disease Education Program and the [facility] literature.Reference ranges:60 or greater: Grvxll82-19 ( for 3 consecutive months): Chronic kidney disease 15 or less: Kidney failureThe Hospitals of Providence Sierra CampusGlucose xmusjcxvyyk7460-69-32 05:20:00* Test Item Value Reference Range Interpretation Comments Glucose Level (test code = TOU0712) 80 74-[address] [facility], TXerum or plasma calcium measurement (mass/volume)2020-04-11 05:20:00* Test Item Value Reference Range Interpretation Comments Calcium Level (test code = 84971-9) 8.1 8.4-10.[address] [facility], TXerum or plasma total bilirubin measurement (mass/volume)2020-04-11 05:20:00* Test Item Value Reference Range Interpretation Comments Total Bilirubin (test code = 1975-2) 0.6 0.2-1.2 [facility] CampusFluoroscopic procedure less than one hour xjtxfwga6120-06-97 05:20:00* Test Item Value Reference Range Interpretation Comments Aspartate Amino Transf (AST/SGOT) (test code = Aspartate Amino Transf (AST/SGOT)) 13 5-[address] [facility], TXerum or plasma alanine aminotransferase measurement (enzymatic activity/volume)2020-04-11 05:20:00* Test Item Value Reference Range Interpretation Comments Alanine Aminotransferase (ALT/SGPT) (test code = 1742-6) < 6 0-[address] [facility], TXerum or plasma protein measurement (mass/volume)2020-04-11 05:20:00* Test Item Value Reference Range Interpretation Comments Total Protein (test code = 2885-2) 5.6 6.5-8.[address] [facility], TXerum or plasma albumin measurement (mass/volume)2020-04-11 05:20:00* Test Item Value Reference Range Interpretation Comments Albumin (test code = 1751-7) 2.3 3.5-5.0 [facility] CampusPlasma globulin measurement (mass/volume) 2020-04-11 05:20:00* Test Item Value Reference Range Interpretation Comments Globulin (test code = 84286-2) 3.3 2.3-3.[address] [facility], TXerum or plasma albumin/globulin mass cvhne8790-00-30 05:20:00* Test Item Value Reference Range Interpretation Comments Albumin/Globulin Ratio (test code = 1759-0) 0.7 0.8-2.[address] [facility], TXerum or plasma alkaline phosphatase measurement (enzymatic activity/volume)2020-04-11 05:20:00* Test Item Value Reference Range Interpretation Comments Alkaline Phosphatase (test code = 6768-6) 91 40-[address] [facility], TXerum or plasma thyrotropin measurement by detection limit <= 0.005 miu/l (units/volume)2020-04-11 05:20:00* Test Item Value Reference Range Interpretation Comments Thyroid Stimulating Hormone (TSH) (test code = 08724-9) 7.359 0.350-4.940 [facility] CampusCT ABDOMEN/PELVIS UM1660-93-65 17:02:00 [facility] [address] [place] [address] Patient Name: SADA KARIMI MR #: [id number] : 1950 Age/Sex: 69/F Req #: [id number] Adm Physician: JUANY AWAD MD Ordered by: KENY PEÑA MD Re port #: [id number] Location: MED/SURG3 Room/ Bed: [facility] Procedure: [id number] CT/CT ABDOMEN /PELVIS WO Exam Date: 04/10/20 [...] KENY SMITH MD CHEST SINGLE (PORTABLE)2020-04-10 15:05:[address] [address] Patient Name: SADA KARIMI MR #: [id number] : 1950 Age/Sex: 69/F Req #: [id number] Adm Physician: Ordered by: HÉCTOR THOMSON [employer] Report #: [id number] Location: [facility] bah/Bed: Procedure: [id number] DX/CHEST SI NGLE (PORTABLE) Exam Date: 04/10/20 [...] 04/10/2020 3:06 PM Dictated By: GLENNA Calixto 1506 Transcribed By: Adomos PEREZ on 04/10/20 1506 COPY TO: HÉ[employer] Prothrombin time (PT) in platelet poor plasma by coagulation svfmm9478-76-93 13:10:00* Test Item Value Reference Range Interpretation Comments Prothrombin Time (test code = 5902-2) 13.4 11.9-14.5 [facility] CampusINR in Platelet poor plasma by Coagulation vpkgx* Test Item Value Reference Range Interpretation Comments Prothromb Time International Ratio (test code = 6301-6) 0.96 Oral Anticoagulant Therapy INR Values:1. Low Intensity Therapy 1.5 - 2.02 . Moderate Intensity Therapy 2.0 - 3.03. High Intensity Therapy(1) 2.5 - 3. 54. High Intensity Therapy(2) 3.0 - 4.05. Panic Value INR > 5.0 [facility] CampusActivated partial thromboplastin time (aPTT) in platelet poor plasma by coagulation ldvbb9221-14-39 13:10:00* Test Item Value Reference Range Interpretation Comments Activated Partial Thromboplast Time (test code = 13003-7) 34.3 23.8-35.5 [facility] CampusUrine color oiezltoddbhmp1967-79-66 13:10:00* Test Item Value Reference Range Interpretation Comments Urine Color (test code = 5778-6) ORANGE YELLOW [facility] CampusUrine cnrofdt1251-37-66 13:10:00* Test Item Value Reference Range Interpretation Comments Urine Clarity (test code = 54762-1) CLOUDY CLEAR [facility] [place], TXpecific gravity of Urine by Test strip 2020-04-10 13:10:00* Test Item Value Reference Range Interpretation Comments Urine Specific [place] (test code = 5811-5) >=1.030 1.010-1.02 5 [facility] CampusUrine pH measurement by automated test dambc4739-68-41 13:10:00* Test Item Value Reference Range Interpretation Comments Urine pH (test code = 29297-6) 6.5 5-7 [facility] CampusUrine leukocyte esterase detection by bqpdtfdw5065-15-73 13:10:00* Test Item Value Reference Range Interpretation Comments Urine Leukocyte Esterase (test code = 5799-2) LARGE NEGATIVE [facility] CampusUrine nitrite jrillnxih8254-11-86 13:10:00* Test Item Value Reference Range Interpretation Comments Urine Nitrite (test code = 36622-1) NEGATIVE NEGATIVE [facility] CampusUrine protein measurement by test strip (mass/volume)2020-04-10 13:10:00* Test Item Value Reference Range Interpretation Comments Urine Protein (test code = 5804-0) >=300 NEGATIVE [facility] CampusUrine glucose jintuzero2904-39-98 13:10:00* Test Item Value Reference Range Interpretation Comments Urine Glucose (UA) (test code = 2349-9) NEGATIVE NEGATIVE [facility] CampusUrine ketones detection by automated test qlhlx2934-27-74 13:10:00* Test Item Value Reference Range Interpretation Comments Urine Ketones (test code = 58929-2) NEGATIVE NEGATIVE [facility] CampusUrine urobilinogen measurement by test strip (mass/volume)2020-04-10 13:10:00* Test Item Value Reference Range Interpretation Comments Urine Urobilinogen (test code = 10978-8) 1 0.2-1 [facility] CampusUrine total bilirubin measurement (mass/volume)2020-04-10 13:10:00* Test Item Value Reference Range Interpretation Comments Urine Bilirubin (test code = 1978-6) SMALL NEGATIVE [facility] CampusUrine erythrocytes iwzqrpayr8423-11-21 13:10:00* Test Item Value Reference Range Interpretation Comments Urine Blood (test code = 01151-0) LARGE NEGATIVE [facility] CampusAutomated urine sediment leukocyte count by microscopy (number/high power field)2020-04-10 13:10:00* Test Item Value Reference Range Interpretation Comments Urine WBC (test code = 5821-4) >50 0-5 [facility] CampusErythrocytes detection in urine sediment by light bxvjugjhyg3507-86-40 13:10:00* Test Item Value Reference Range Interpretation Comments Urine RBC (test code = 32681-1) >50 0-5 [facility] CampusBacteria detection in urine sediment by light eblyovaxda3103-23-81 13:10:00* Test Item Value Reference Range Interpretation Comments Urine Bacteria (test code = 07772-7) MANY NONE [facility] CampusEpithelial cells detection in urine sediment by light timpbcrssd9493-30-11 13:10:00* Test Item Value Reference Range Interpretation Comments Urine Epithelial Cells (test code = 11864-3) FEW NONE [facility], TXerum or plasma creatine kinase measurement (enzymatic activity/volume)2020-04-10 13:10:00* Test Item Value Reference Range Interpretation Comments Creatine Kinase (test code = 2157-6) 11 29-[address] [facility], TXerum or plasma creatine kinase MB measurement (mass/volume)2020-04-10 13:10:00* Test Item Value Reference Range Interpretation Comments Creatine Kinase MB (test code = 18316-8) 0.20 0-5.0 [facility] CampusTroponin I measurement by highly sensitive enzyme vfhlonssgtm9876-90-25 13:10:00* Test Item Value Reference Range Interpretation Comments Troponin I (test code = 77887-5) 0.003 0-0.300 [facility] CampusBlood wpbmymj3601-06-26 13:10:00* Test Item Value Reference Range Interpretation Comments Blood Culture (test code = 63299400) NO GROWTH AFTER 24 HOURS [facility] CampusBacterial urine kjcdjbe4604-07-73 13:10:00* Test Item Value Reference Range Interpretation Comments Urine Culture (test code = 630-4) GRAM NEGATIVE BACILLUS [facility] CampusTROPONIN-S6602-22-06 08:22:00* Test Item Value Reference Range Interpretation Comments TROPONIN-I (test code = TROPI) <0.015 ng/mL 0-0.045 N - CT ABD PELVIS W/LOGH1901-73-12 08:11:00 Name: SADA KARIMI [facility] : 1950 Age/S: 69 / F [address] [facility] Unit #: [id number] Loc: [facility] [place] [address] Phys: Carlos Townsend DO Acct: [id number] Dis Date: Status: REG ER PHONE #: [phone] Exam Date: 03/24/2020 4479 FAX #: [phone] Reason: abd pain EXAMS: CPT CODE: [id number] CT ABD PELVIS W/CONT 50752 HISTORY: Abdominal pain. COMPARISON: CT scan from February 29, 2020. Location: . CT abdomen and pelvis with IV contrast: [...] 1 Signed Report (CONTINUED) Name: SADA KARIMI [facility] : 1950 Age/S: 69 / F [address] [facility] Unit #: [id number] Loc: [place] [address] Phys: Carlos Townsend DO Acct: [id number] Dis Date: atus: REG ER PHONE #: [phone] Exam [facility] e: 03/24/2020 0754 FAX #: [phone] Reason: abd zuleika n EXAMS: CPT CODE: [id number] CT ABD PELVIS W/CONT 60224 <Continued> decompressed urinary bladder is well which [...] Ty Avery M.D. CC: Carlos Townsend DO Technologist:Danielle Brody,RT(R),CT CTDI: DLP: Trnscb Date/Time: 03/24/2020 (0811) t.SDR.TH4 Orig Print D/T: S: 03/24/2020 (14) PAGE 2 Signed Report BASIC METABOLIC GEJOR2404-81-90 08:04:00* Test Item Value Reference Range Interpretation [...] CA) 8.0 mg/dL 8.5-10.1 L HEPATIC FUNCTION REYJM2562-74-65 08:04:00* Test Item Value Reference Range Interpretation [...] reference range due to change in reagent. PZPDRI3360-60-77 08:04:00* Test Item Value Reference Range Interpretation Comments LIPASE (test code = LIP) 66 U/L 73.0-393.0 L BASIC METABOLIC [id number] 07:16:00* Test Item Value Reference Range Interpretation [...] CA) 8.0 mg/dL 8.5-10.1 L HEPATIC FUNCTION [id number] 07:16:00* Test Item Value Reference Range Interpretation [...] TOTAL (test code = ALKP) IUnit/L 45-117 [id number] 07:16:00* Test Item Value Reference Range Interpretation Comments LIPASE (test code = LIP) U/L 73.0-393.0 BASIC METABOLIC [id number] 07:08:00* Test Item Value Reference Range Interpretation [...] code = CA) mg/dL 8.5-10.1 HEPATIC FUNCTION [id number] 07:08:00* Test Item Value Reference Range Interpretation [...] TOTAL (test code = ALKP) IUnit/L 45-117 [id number] 07:08:00* Test Item Value Reference Range Interpretation Comments LIPASE (test code = LIP) U/L 73.0-393.0 CBC W/O [id number] 06:33:00* Test Item Value Reference Range Interpretation [...] fL 6.7-11.0 N - XR CHEST 1 [id number] 06:21:00 FAX: Carlos Townsend DO [place]: B St: REG Name: SADA LANDAVERDE [facility] : [birth year] Age/S: 69/F [address] [facility] Unit #: [id number] Loc: [place], [place] [address] Phys: Carlos Townsend DO Acct: [id number] Dis Date: Status: REG ER PHONE #: [phone] Exam Date: 03/24/2020 0604 FAX #: [phone] Reason: abd pain EXAMS: CPT CODE: [id number] XR CHEST 1 V 98558 - XR CHEST 1 V, 03/24/2020 5:49 [...] By: ShirleySR31 Orig Print D/T: S: 03/24/2020 (623) PAGE 1 Signed Report URINALYSIS [id number] 06:19:00* Test Item Value Reference Range Interpretation Comments UA COLOR (test code = COLU) RED YELLOW A Previously reported result: ORANGE Edited by: MIGUELGP on 03/24/20:97154803/24/20 0619: COLOR previously reported as: ORANGE H UA [...] FEW #/LPF FEW Urine Source? Clean CatchURINALYSIS [id number] 06:17:00* Test Item Value Reference Range Interpretation [...] FEW Urine Source? Clean Catch- XR CYSTOURETHRO URSWM0311-80-69 13:42:00 FAX: Ashu Carlton MD [phone] [place]: St: ADM FAX: Jaden Mcmahon [phone] Name: SADA KARIMI [facility] : 1950 Age/S: 69/F [address] [facility] Unit #: [id number] Loc: .[address] [place] [address] Phys: Jaden Rodgers Acct: [id number] Dis Date: Status: ADM IN PHONE #: [phone] Exam Date: 03/11/2020 1330 FAX #: [phone] Reason: CYSTO EXAMS: CPT CODE: [id number] XR CYSTOURETHRO RETRO 44222 CLINICAL HISTORY: CYSTO TECHNIQUE: Intraoperative fluoroscopic images from retrograde urogram. Fluoroscopy time 18 seconds;D ose: 3.1 mGy. IMPRESSION: Left percutaneous ne phrostomy tube was removed and left ureteral stent was placed. Location: [facility] Electronically Signed by Caleb Salas MD on at 1342 Reported and signed by: Caleb Salas MD CC: Ashu Carlton MD; Jaden Rodgers M.D. Technologist: Felecia Abdul) Alfredo [facility] Date/Time/By: 03/11/2020 (3412) : By: [email or web address] Orig Print D/T: S: 03/11/2020 (5700) PAGE 1 Signed Report BASIC METABOLIC [id number] 05:57:00* Test Item Value Reference Range Interpretation [...] CA) 7.6 mg/dL 8.5-10.1 L CBC W/O [id number] 05:26:00* Test Item Value Reference Range Interpretation [...] 10.9 fL 6.7-11.[id number] 18:04:00* Test Item Value Reference Range Interpretation Comments FLUID SOURCE (test code = SOURCEFL) ABSCESS FLUID COLOR (test code = COLFL) PINKISH COLORLESS FLUID APPEARANCE (test code = APPFL) HAZY FLUID WBC AUTO (test code = WBCFLA) 553908 cells/uL FLUID RBC AUTO (test code = RBCFLA) 219564 cells/uL FLUID TOTAL CELLS (test code = TCFL) 925341 cells/uL >0 Fluid WBC RBC Type cells/uL [...] = REVIEW) PATHOLOGIST RODRÍGUEZ SHELLEY M.D.03/10/20REVIEWED - [facility] NEPHR CATH [id number] 15:23:00 Name: SADA KARIMI [facility] : 1950 Age/S: 69 / F [address] [facility] Unit #: [id number] Loc: [place] [address] Phys: Ashu Carlton MD Acct: [id number] Dis Date: Status: ADM IN PHONE #: [phone] Exam Date: 03/10/2020 1026 FAX #: [phone] Reason: EXAMS: CPT CODE: [id number] [facility] NEPHR CATH 96631 Fluoro Time: 322 DAP (Gy m2): 8.83 [...] was aspirated from the needle. Using the AirPR system, an 035 guidewire was inserted. A 5 [place] Kumpe catheter was then inserted into the [...] been decompressed with a Jansen catheter. 9 [place] peel-away sheath was inserted followed by insertion of a secon d guidewire. Subsequently, a 10 [place] nephrostomy tube was inserted and c oiled with its pigtail portion in the renal pelvis. Purulent urine w as aspirated and samples were sent to the lab. A 5 [place] [address] Fl[address] was then advanced [...] present. 2. Successful insertion of a 10 [place] nephrostomy t ube. 3. Successful insertion of a temporary 5 [place] nephroureteral internal/external tube. Fluoroscopy Time: 322 sec PAGE 1 Signed Report (CONTINUED) Name: SADA MAYFIELD [facility] : [birth year] Age/S: 69 / F [address] [facility] Unit #: [id number] Loc: [place] [address] Phys: Ashu Carlton Acct: [id number] Dis Date: Status: ADM IN PHONE #: [phone] Exam Date: 03/10/2020 1029 FAX #: [phone] R dale: EXAMS: CPT CODE: [id number] [facility] [place] [address] Fluoro Time: 322 DAP (Gy m2): 8.83 Air Kerma (mGy): 77 <Continued> CAK : 77 mGy DAP : 8830 mGy sq cm Location code: [facility] at 1523 Reported and signed by: Gregorio Hartman M.D. CC: Ashu Carlton MD Technologist: Nicolle Fernandez Trnksb Date/Time: 03/10/2020 (152) [email or web address] Orig Print D/T: S: 03/10/2020 (1526) PAGE 2 Signed Report - [facility] NEPH [id number] 15:23:00 Name: SADA KARIMI [facility] : 1950 Age/S: 69 / F [address] Unit #: [id number] Loc: [place] [address] Phys: Ashu Carlton MD Acct: [id number] Dis Date: Status: ADM IN PHONE #: [phone] Exam Date: 03/10/2020 1029 FAX #: [phone] Reason: EXAMS: CPT CODE: [id number] [facility] NEPH CATH 56643 Fluoro Time: 322 DAP (Gy m2): 8.83 [...] was aspirated from the needle. Using the AirPR system, an 035 guidewire was inserted. A 5 [place] Kumpe catheter was then inserted into the proximal ureter. Contrast was injected and irregular filling defects were seen in the ureter consistent with curette material and probably also a stone. However this stone was not clearly identified due to other filling defects. The guidewire was then directed into the urinary bladder which have been decompressed with a Jansen catheter. 9 [place] peel-away sheath was inserted followed by insertion of a second guidewire. Subsequently, a 10 [place] nephrostomy tube was inserted and c oiled with its pigtail portion in the renal pelvis. Purulent urine w as aspirated and samples were sent to the lab. A 5 [place] Omni Flush [address] was then advanced [...] present. 2. Successful insertion of a 10 [place] nephrostomy t ube. 3. Successful insertion of a temporary 5 [place] nephroureteral internal/external tube. Fluoroscopy Time: 322 sec PAGE 1 Signed Report (CONTINUED) Name: SADA MAYFIELD [facility] : [birth year] Age/S: 69 / F [address] [facility] Unit #: [id number] Loc: [place] [address] Phys: Ashu Carlton Acct: [id number] Dis Date: Status: ADM IN PHONE #: Exam Date: 03/10/2020 1028 FAX #: [phone] R dale: EXAMS: CPT CODE: [id number] [facility] NEPH CATH 77264 Fluoro Time: 322 DAP (Gy m2): 8.83 Air Kerma (mGy): 77 <Continued> CAK : 77 mGy DAP : 8830 mGy sq cm Location code: [facility] at 1523 Reported and signed by: Gregorio Hartman M.D. CC: Ashu Carlton MD Technologist: Nicolle Fernandez Trnscb Date/Time: 03/10/2020 (152) ShirleyGRW Orig Print D/T: S: 03/10/2020 (2285) PAGE 2 Signed Report - [facility] NEPH NEW [id number] 15:23:00 Name: SADA KARIMI [facility] : 1950 Age/S: 69 / F [address] [facility] Unit #: [id number] Loc: [place] [address] Phys: Ashu Carlton MD Acct: [id number] Dis Date: Status: ADM IN PHONE #: [phone] Exam Date: 03/10/2020 1022 FAX #: [phone] Reason: EXAMS: CPT CODE: [id number] [facility] NEPH NEW ACCESS 39096 Fluoro Time: 322 DAP (Gy m2): 8.83 [...] was aspirated from the needle. Using the AirPR system, an 035 guidewire was inserted. A 5 [place] Kumpe catheter was then inserted into the proximal ureter. Contrast was injected and irregular filling defects were seen in the ureter consistent with curette material and probably also a stone. However this stone was not clearly identified due to other filling defects. The guidewire was then directed into the urinary bladder which have been decompressed with a Jansen catheter. 9 [place] peel-away sheath was inserted followed by insertion of a second guidewire. Subsequently, a 10 [place] nephrostomy tube was inserted and c oiled with its pigtail portion in the renal pelvis. Purulent urine w as aspirated and samples were sent to the lab. A 5 [place] Omni Flush [address] was then advanced [...] present. 2. Successful insertion of a 10 [place] nephrostomy t ube. 3. Successful insertion of a temporary 5 [place] nephroureteral internal/external tube. Fluoroscopy Time: 322 sec PAGE 1 Signed Report (CONTINUED) Name: INGRID PARDOSADA PIZANO [facility] : [birth year] Age/S: 69 / F [address] [facility] Unit #: [id number] Loc: [place] [address] Phys: Ashu Carlton Acct: [id number] Dis Date: Status: ADM IN PHONE #: Exam Date: 03/10/2020 1029 FAX #: [phone] R dale: EXAMS: CPT CODE: [id number] IN[facility] NEPH NEW ACCESS 02390 Fluoro Time: 322 DAP (Gy m2): 8.83 Air Kerma (mGy): 77 <Continued> CAK : 77 mGy DAP : 8830 mGy sq cm Location code: [facility] at 1523 Reported and signed by: Gregorio Hartman M.D. CC: Ashu Carlton MD Technologist: Nicolle Fernandez Trnksb Date/Time: 03/10/2020 (1523) [email or web address] Orig Print D/T: S: 03/10/2020 (1526) PAGE 2 Signed Report - USG NDL PLACEMENT (Bxg/Asp) 2020-03-10 15:23:00 Name: SADA KARIMI [facility] : 1950 Age/S: 69 / F [address] Unit #: [id number] Loc: [place] [address] Phys: Gregorio Hartman MD Acct: [id number] Dis Date: Status: ADM IN PHONE #: [phone] Exam Date: 03/10/2020 1021 FAX #: [phone] Reason: KIDNEY STONE EXAMS: CPT CODE: [id number] USG NDL PLACEMENT (Bxg/Asp) 41640 EXAM: Antegrade nephrostogram with sonographic and fluoroscopic [...] was aspirated from the needle. Using the AirPR system, an 035 guidewire was inserted. A 5 [place] Kumpe catheter was then inserted into the proximal ureter. Contrast was injected and irregular filling defects were seen in the ureter consistent with curette material and probably also a stone. However this stone was not clearly identified due to other filling defects. The guidewire was then directed into the urinary bladder which have been decompressed with a Jansen catheter. 9 [place] peel-away sheath was inserted followed by insertion of a second guidewire. Subsequently, a 10 [place] nephrostomy tube was inserted and coiled with its pigtail portion in the renal pelvis. Purulent urine was aspirated and samples were sent to the lab. A 5 [place] Omni Flush catheter was then advanced over [...] present. 2. Successful insertion of a 10 [place] nephrostomy tube. 3. Successful insertion of a temporary 5 [place] nephro ureteral internal/external tube. PAGE 1 Signed Report (CONTINUED) Name: SADA KARIMI [facility] : 1950 Age/S: 69 / F [address] [facility] Unit #: [id number] Loc: [place] [address] Phys: Gregorio Hartman MD Acct: [id number] Dis Date: Status: ADM IN PHONE #: [phone] Exam Date: 1021 FAX #: [phone] Reason: KIDNEY STONE EXAMS: CPT CODE: [id number] USG NDL PLACEMENT (Bxg/Asp) 30947 <Continued> Fluoroscopy Time: 322 sec CAK : 77 mGy DAP : 8830 mGy sq cm Location code: [facility] at 1523 Reported and signed by: Gregorio Hartman M.D. CC: Ashu Carlton MD Technologist: SUELLEN HUDDLESTON RT(R),[facility] Trnksb Date/Time: 03/10/2020 (1523) [email or web address] Orig Print D/T: S: 03/10/2020 (1526) Probe: PAGE 2 Signed Report BODY FLUID CELL CT/[id number] 13:11:00 * Test Item Value Reference Range Interpretation Comments FLUID SOURCE (test code = SOURCEFL) ABSCESS FLUID COLOR (test code = COLFL) PINKISH COLORLESS FLUID APPEARANCE (test code = APPFL) HAZY FLUID WBC AUTO (test code = WBCFLA) 541207 cells/uL FLUID RBC AUTO (test code = RBCFLA) 373606 cells/uL FLUID TOTAL CELLS (test code = TCFL) 742279 cells/uL >0 Fluid WBC RBC Type cells/uL [...] code = REVIEW) PATHOLOGIST BODY FLUID CELL CT/[id number] 13:00:00* Test Item Value Reference Range Interpretation Comments FLUID SOURCE (test code = SOURCEFL) FLUID COLOR (test code = COLFL) COLORLESS FLUID APPEARANCE (test code = APPFL) FLUID WBC (test code = WBCFL) per mm3 0-150 FLUID WBC AUTO (test code = WBCFLA) 052529 cells/uL FLUID RBC (test code = RBCFL) per mm3 0-50 FLUID RBC AUTO (test code = RBCFLA) 811392 cells/uL FLUID TOTAL CELLS (test code = TCFL) 766251 cells/uL >0 Fluid WBC RBC Type cells/uL [...] code = REVIEW) PATHOLOGIST BODY FLUID CELL [id number] 10:57:00* Test Item Value Reference Range Interpretation Comments FLUID SOURCE (test code = SOURCEFL) FLUID COLOR (test code = COLFL) COLORLESS FLUID APPEARANCE (test code = APPFL) FLUID WBC (test code = WBCFL) per mm3 0-150 FLUID WBC AUTO (test code = WBCFLA) 241438 cells/uL FLUID RBC (test code = RBCFL) per mm3 0-50 FLUID RBC AUTO (test code = RBCFLA) 197915 cells/uL FLUID TOTAL CELLS (test code = TCFL) 781186 cells/uL >0 Fluid WBC RBC Type cells/uL cells/uL CSF (0-5) n/a Peritoneal n/a n/a Pleural n/a n/a Synovial <200 n/a CSF (0-30) n/a TOTAL CELLS COUNTED ON DIFF (test code = TOTCELLFL) cells REVIEWED BY (test code = REVIEW) PATHOLOGIST CBC W/MANUAL [id number] 06:28:00* Test Item Value Reference Range Interpretation [...] = IMMAT) 0 % 0-0 N PROTHROMBIN [id number] 05:07:00* Test Item Value Reference Range Interpretation [...] TOMORROW.SPECIMEN COMMENTS: FPR PROCEDURE TOMORROW. THROMBOPLASTIN TIME [id number] 05:07:00* Test Item Value Reference Range Interpretation Comments THROMBOPLASTIN TIME PARTIAL (test code = PTT) 44.6 seconds 25.0-36. 5 H IS PATIENT ON ANTICOAGULANTS? YLIST ANTICOAGULANTS ASPIRIN HEPARINSPECIM EN COMMENTS: FOR PROCEDURE TOMORROW.SPECIMEN COMMENTS: FPR PROCEDURE TOMORROW. CBC W/MANUAL [id number] 05:00:00* Test Item Value Reference Range Interpretation [...] MORPHOLOGY (test code = PLTMORPH) CBC W/MANUAL [id number] 05:00:00* Test Item Value Reference Range Interpretation [...] MORPHOLOGY (test code = PLTMORPH) CBC W/MANUAL [id number] 05:00:00* Test Item Value Reference Range Interpretation [...] MORPHOLOGY (test code = PLTMORPH) CBC W/MANUAL [id number] 04:59:00* Test Item Value Reference Range Interpretation [...] MORPHOLOGY (test code = PLTMORPH) CBC W/MANUAL [id number] 04:59:00* Test Item Value Reference Range Interpretation [...] MORPHOLOGY (test code = PLTMORPH) BASIC METABOLIC [id number] 04:56:00* Test Item Value Reference Range Interpretation [...] CA) 7.9 mg/dL 8.5-10.1 L BASIC METABOLIC [id number] 04:49:00* Test Item Value Reference Range Interpretation [...] code = CA) mg/dL 8.5-10.1 BASIC METABOLIC [id number] 05:09:00* Test Item Value Reference Range Interpretation [...] CA) 7.1 mg/dL 8.5-10.1 L BASIC METABOLIC [id number] 05:05:00* Test Item Value Reference Range Interpretation [...] CA) 7.1 mg/dL 8.5-10.1 L BASIC METABOLIC [id number] 11:48:00* Test Item Value Reference Range Interpretation [...] CA) 7.6 mg/dL 8.5-10.1 L CBC W/AUTO [id number] 03:31:00* Test Item Value Reference Range Interpretation [...] = MDIFF) NO, ONLY SCAN NEEDED DIFFERENTIAL [id number] 03:31:00* Test Item Value Reference Range Interpretation Comments STAIN ACCEPTABILITY (test code = STN ACCEPTABLE) STAIN ACCEPTABLE MORPHOLOGY COMMENT (test code = MOC) TEST NOT PERFORMED PLATELET ESTIMATE (test code = PLTEST) DECREASED PLATELET MORPHOLOGY (test code = PLTMORPH) NORMAL BASIC METABOLIC [id number] 02:25:00* Test Item Value Reference Range Interpretation [...] code = CA) 7.8 mg/dL 8.5-10.1 L [id number] 02:25:00* Test Item Value Reference Range Interpretation Comments PHOSPHORUS (test code = PHOS) 2.1 mg/dL 2.5-4.9 L [id number] 02:25:00* Test Item Value Reference Range Interpretation Comments MAGNESIUM (test code = MAG) 2.0 mg/dL 1.8-2.4 N CALCIUM [id number] 02:25:00* Test Item Value Reference Range Interpretation Comments CALCIUM IONIZED (test code = OCHOA) 1.20 mmol/L 1.12-1.32 N BASIC METABOLIC [id number] 02:18:00* Test Item Value Reference Range Interpretation [...] code = CA) 7.8 mg/dL 8.5-10.1 L [id number] 02:18:00* Test Item Value Reference Range Interpretation Comments PHOSPHORUS (test code = PHOS) 2.1 mg/dL 2.5-4.9 L [id number] 02:18:00* Test Item Value Reference Range Interpretation Comments MAGNESIUM (test code = MAG) 2.0 mg/dL 1.8-2.4 N CALCIUM [id number] 02:18:00* Test Item Value Reference Range Interpretation Comments CALCIUM IONIZED (test code = OCHOA) mmol/L 1.12-1.32 CBC W/AUTO [id number] 02:14:00* Test Item Value Reference Range Interpretation [...] = MDIFF) NO, ONLY SCAN NEEDED DIFFERENTIAL [id number] 02:14:00* Test Item Value Reference Range Interpretation Comments STAIN ACCEPTABILITY (test code = STN ACCEPTABLE) CABOT RINGS (test code = CAB) MORPHOLOGY COMMENT (test code = MOC) PLATELET ESTIMATE (test code = PLTEST) PLATELET MORPHOLOGY (test code = PLTMORPH) CBC W/AUTO [id number] 02:14:00* Test Item Value Reference Range Interpretation [...] = MDIFF) NO, ONLY SCAN NEEDED DIFFERENTIAL [id number] 02:14:00* Test Item Value Reference Range Interpretation Comments STAIN ACCEPTABILITY (test code = STN ACCEPTABLE) CABOT RINGS (test code = CAB) MORPHOLOGY COMMENT (test code = MOC) PLATELET ESTIMATE (test code = PLTEST) PLATELET MORPHOLOGY (test code = PLTMORPH) CBC W/AUTO [id number] 02:14:00* Test Item Value Reference Range Interpretation [...] = MDIFF) NO, ONLY SCAN NEEDED DIFFERENTIAL [id number] 02:14:00* Test Item Value Reference Range Interpretation Comments STAIN ACCEPTABILITY (test code = STN ACCEPTABLE) MORPHOLOGY COMMENT (test code = MOC) PLATELET ESTIMATE (test code = PLTEST) PLATELET MORPHOLOGY (test code = PLTMORPH) CBC W/AUTO [id number] 02:14:00* Test Item Value Reference Range Interpretation [...] = MDIFF) NO, ONLY SCAN NEEDED DIFFERENTIAL [id number] 02:14:00* Test Item Value Reference Range Interpretation Comments STAIN ACCEPTABILITY (test code = STN ACCEPTABLE) CABOT RINGS (test code = CAB) MORPHOLOGY COMMENT (test code = MOC) PLATELET ESTIMATE (test code = PLTEST) PLATELET MORPHOLOGY (test code = PLTMORPH) BASIC METABOLIC [id number] 02:13:00* Test Item Value Reference Range Interpretation [...] CALCIUM (test code = CA) mg/dL 8.5-10.1 [id number] 02:13:00* Test Item Value Reference Range Interpretation Comments PHOSPHORUS (test code = PHOS) mg/dL 2.5-4.9 [id number] 02:13:00* Test Item Value Reference Range Interpretation Comments MAGNESIUM (test code = MAG) mg/dL 1.8-2.4 CALCIUM [id number] 02:13:00* Test Item Value Reference Range Interpretation Comments CALCIUM IONIZED (test code = OCHOA) mmol/L 1.12-1.32 CALCIUM [id number] 05:02:00* Test Item Value Reference Range Interpretation Comments CALCIUM IONIZED (test code = OCHOA) 1.19 mmol/L 1.12-1.32 N REQUESTED A SERUM TUBE, NOTIFIED [id number] CBC W/AUTO [id number] 02:31:00* Test Item Value Reference Range Interpretation [...] = MDIFF) NO, ONLY SCAN NEEDED DIFFERENTIAL [id number] 02:31:00* Test Item Value Reference Range Interpretation [...] (test code = PLTMORPH) NORMAL BASIC METABOLIC [id number] 02:30:00* Test Item Value Reference Range Interpretation [...] code = CA) 7.8 mg/dL 8.5-10.1 L [id number] 02:30:00* Test Item Value Reference Range Interpretation Comments PHOSPHORUS (test code = PHOS) 2.5 mg/dL 2.5-4.9 N [id number] 02:30:00* Test Item Value Reference Range Interpretation Comments MAGNESIUM (test code = MAG) 2.0 mg/dL 1.8-2.4 N CALCIUM [id number] 02:30:00* Test Item Value Reference Range Interpretation Comments CALCIUM IONIZED (test code = OCHOA) mmol/L 1.12-1.32 BASIC METABOLIC [id number] 02:25:00* Test Item Value Reference Range Interpretation [...] CALCIUM (test code = CA) mg/dL 8.5-10.1 [id number] 02:25:00* Test Item Value Reference Range Interpretation Comments PHOSPHORUS (test code = PHOS) mg/dL 2.5-4.9 [id number] 02:25:00* Test Item Value Reference Range Interpretation Comments MAGNESIUM (test code = MAG) mg/dL 1.8-2.4 CALCIUM [id number] 02:25:00* Test Item Value Reference Range Interpretation Comments CALCIUM IONIZED (test code = OCHOA) mmol/L 1.12-1.32 CBC W/AUTO [id number] 02:11:00* Test Item Value Reference Range Interpretation [...] = MDIFF) NO, ONLY SCAN NEEDED DIFFERENTIAL [id number] 02:11:00* Test Item Value Reference Range Interpretation Comments STAIN ACCEPTABILITY (test code = STN ACCEPTABLE) CABOT RINGS (test code = CAB) MORPHOLOGY COMMENT (test code = MOC) PLATELET ESTIMATE (test code = PLTEST) PLATELET MORPHOLOGY (test code = PLTMORPH) CBC W/AUTO [id number] 02:11:00* Test Item Value Reference Range Interpretation [...] = MDIFF) NO, ONLY SCAN NEEDED DIFFERENTIAL [id number] 02:11:00* Test Item Value Reference Range Interpretation Comments STAIN ACCEPTABILITY (test code = STN ACCEPTABLE) CABOT RINGS (test code = CAB) MORPHOLOGY COMMENT (test code = MOC) PLATELET ESTIMATE (test code = PLTEST) PLATELET MORPHOLOGY (test code = PLTMORPH) CBC W/AUTO [id number] 02:11:00* Test Item Value Reference Range Interpretation [...] = MDIFF) NO, ONLY SCAN NEEDED DIFFERENTIAL [id number] 02:11:00* Test Item Value Reference Range Interpretation Comments STAIN ACCEPTABILITY (test code = STN ACCEPTABLE) MORPHOLOGY COMMENT (test code = MOC) PLATELET ESTIMATE (test code = PLTEST) PLATELET MORPHOLOGY (test code = PLTMORPH) CBC W/AUTO [id number] 02:11:00* Test Item Value Reference Range Interpretation [...] = MDIFF) NO, ONLY SCAN NEEDED DIFFERENTIAL [id number] 02:11:00* Test Item Value Reference Range Interpretation Comments STAIN ACCEPTABILITY (test code = STN ACCEPTABLE) CABOT RINGS (test code = CAB) MORPHOLOGY COMMENT (test code = MOC) PLATELET ESTIMATE (test code = PLTEST) PLATELET MORPHOLOGY (test code = PLTMORPH) [id number] 17:36:00* Test Item Value Reference Range Interpretation Comments VANCOMYCIN (test code = VANCO) 10.2 UG/ML 5.0-45.0 N WANTS LAB STILL COLLECTED V.LAB.LB2 03/03/20 1639CBC W/AUTO [id number] 04:19:00* Test Item Value Reference Range Interpretation [...] = MDIFF) NO, ONLY SCAN NEEDED DIFFERENTIAL [id number] 04:19:00* Test Item Value Reference Range Interpretation Comments STAIN ACCEPTABILITY (test code = STN ACCEPTABLE) STAIN ACCEPTABLE POIKILOCYTOSIS (test code = POIK) 2+ ANISOCYTOSIS (test code = ANISO) 1+ AMELIA CELLS (test code = AMELIA) 1+ NONE MORPHOLOGY COMMENT (test code = MOC) TEST NOT PERFORMED PLATELET ESTIMATE (test code = PLTEST) DECREASED PLATELET MORPHOLOGY (test code = PLTMORPH) NORMAL BASIC METABOLIC [id number] 04:16:00* Test Item Value Reference Range Interpretation [...] code = CA) 7.4 mg/dL 8.5-10.1 L [id number] 04:16:00* Test Item Value Reference Range Interpretation Comments PHOSPHORUS (test code = PHOS) 2.5 mg/dL 2.5-4.9 N [id number] 04:16:00* Test Item Value Reference Range Interpretation Comments MAGNESIUM (test code = MAG) 2.2 mg/dL 1.8-2.4 N CALCIUM [id number] 04:16:00* Test Item Value Reference Range Interpretation Comments CALCIUM IONIZED (test code = OCHOA) 1.17 mmol/L 1.12-1.32 N BASIC METABOLIC [id number] 04:04:00* Test Item Value Reference Range Interpretation [...] CALCIUM (test code = CA) mg/dL 8.5-10.1 [id number] 04:04:00* Test Item Value Reference Range Interpretation Comments PHOSPHORUS (test code = PHOS) mg/dL 2.5-4.9 [id number] 04:04:00* Test Item Value Reference Range Interpretation Comments MAGNESIUM (test code = MAG) mg/dL 1.8-2.4 CALCIUM [id number] 04:04:00* Test Item Value Reference Range Interpretation Comments CALCIUM IONIZED (test code = OCHOA) 1.17 mmol/L 1.12-1.32 N CBC W/AUTO [id number] 03:51:00* Test Item Value Reference Range Interpretation [...] = MDIFF) NO, ONLY SCAN NEEDED DIFFERENTIAL [id number] 03:51:00* Test Item Value Reference Range Interpretation Comments STAIN ACCEPTABILITY (test code = STN ACCEPTABLE) CABOT RINGS (test code = CAB) MORPHOLOGY COMMENT (test code = MOC) PLATELET ESTIMATE (test code = PLTEST) PLATELET MORPHOLOGY (test code = PLTMORPH) CBC W/AUTO [id number] 03:51:00* Test Item Value Reference Range Interpretation [...] = MDIFF) NO, ONLY SCAN NEEDED DIFFERENTIAL [id number] 03:51:00* Test Item Value Reference Range Interpretation Comments STAIN ACCEPTABILITY (test code = STN ACCEPTABLE) MORPHOLOGY COMMENT (test code = MOC) PLATELET ESTIMATE (test code = PLTEST) PLATELET MORPHOLOGY (test code = PLTMORPH) CBC W/AUTO [id number] 03:50:00* Test Item Value Reference Range Interpretation [...] = MDIFF) NO, ONLY SCAN NEEDED DIFFERENTIAL [id number] 03:50:00* Test Item Value Reference Range Interpretation Comments STAIN ACCEPTABILITY (test code = STN ACCEPTABLE) CABOT RINGS (test code = CAB) MORPHOLOGY COMMENT (test code = MOC) PLATELET ESTIMATE (test code = PLTEST) PLATELET MORPHOLOGY (test code = PLTMORPH) CBC W/AUTO [id number] 03:50:00* Test Item Value Reference Range Interpretation [...] = MDIFF) NO, ONLY SCAN NEEDED DIFFERENTIAL [id number] 03:50:00* Test Item Value Reference Range Interpretation Comments STAIN ACCEPTABILITY (test code = STN ACCEPTABLE) CABOT RINGS (test code = CAB) MORPHOLOGY COMMENT (test code = MOC) PLATELET ESTIMATE (test code = PLTEST) PLATELET MORPHOLOGY (test code = PLTMORPH) - XR SWLW FUNC W/C [id number] 15:24:00 FAX: Desi Mcmillan MD [phone] [place]: St: [facility] FAX: Shaun Benjamin MD Name: SADA KARIMI [facility] : 1950 Age/S: 69/F [address] [facility] Unit #: [id number] Loc: [address] [address] Phys: Desi Mcmillan MD Acct: [id number] Dis Date: Status: ADM IN PHONE #: [phone] Exam Date: 03/02/2020 1536 FAX #: [phone] Reason: DYSPHAGIA EXAMS: CPT CODE: [id number] XR SWLW FUNC W/C V 75966 EXAM: Modified barium swallow; INFORMATION: Dyspha dalia; IMPRESSION: 1. Silent aspiration was noticed with t hin liquids via cup. 2. Laryngeal penetration was noticed with thin liqu ids wire cup and also with nectar via straw. Fluorosco py Time: 119.2 sec CAK : 7.01 mGy Location code: [facility] at 1524 Reported and signed by: Gregorio Hartman M.D. CC: Desi Mcmillan MD; Shaun Benjamin MD Technologist: Rose Mary JIMENEZ) Trnscrd Date/Time/By: 03/02/2020 (1245) : By: ShirleyGRW Orig Print D/T: S: 03/02/2020 (3149) PAGE 1 Signed Report BASIC METABOLIC [id number] 04:33:00* Test Item Value Reference Range Interpretation [...] code = CA) 7.7 mg/dL 8.5-10.1 L [id number] 04:33:00* Test Item Value Reference Range Interpretation Comments PHOSPHORUS (test code = PHOS) 3.0 mg/dL 2.5-4.9 N [id number] 04:33:00* Test Item Value Reference Range Interpretation Comments MAGNESIUM (test code = MAG) 2.2 mg/dL 1.8-2.4 N CALCIUM [id number] 04:33:00* Test Item Value Reference Range Interpretation Comments CALCIUM IONIZED (test code = OCHOA) 1.17 mmol/L 1.12-1.32 N BASIC METABOLIC [id number] 04:32:00* Test Item Value Reference Range Interpretation [...] CALCIUM (test code = CA) mg/dL 8.5-10.1 [id number] 04:32:00* Test Item Value Reference Range Interpretation Comments PHOSPHORUS (test code = PHOS) mg/dL 2.5-4.9 [id number] 04:32:00* Test Item Value Reference Range Interpretation Comments MAGNESIUM (test code = MAG) mg/dL 1.8-2.4 CALCIUM [id number] 04:32:00* Test Item Value Reference Range Interpretation Comments CALCIUM IONIZED (test code = OCHOA) 1.17 mmol/L 1.12-1.32 N CBC W/MANUAL [id number] 04:26:00* Test Item Value Reference Range Interpretation [...] (test code = PLTMORPH) NORMAL CBC W/MANUAL [id number] 04:07:00* Test Item Value Reference Range Interpretation [...] MORPHOLOGY (test code = PLTMORPH) CBC W/MANUAL [id number] 04:07:00* Test Item Value Reference Range Interpretation [...] MORPHOLOGY (test code = PLTMORPH) CBC W/MANUAL [id number] 04:07:00* Test Item Value Reference Range Interpretation [...] MORPHOLOGY (test code = PLTMORPH) CBC W/MANUAL [id number] 04:06:00* Test Item Value Reference Range Interpretation [...] MORPHOLOGY (test code = PLTMORPH) CBC W/MANUAL [id number] 04:06:00* Test Item Value Reference Range Interpretation [...] MORPHOLOGY (test code = PLTMORPH) BASIC METABOLIC [id number] 15:09:00* Test Item Value Reference Range Interpretation [...] code = CA) 7.4 mg/dL 8.5-10.1 L [id number] 15:09:00* Test Item Value Reference Range Interpretation Comments PHOSPHORUS (test code = PHOS) 3.6 mg/dL 2.5-4.9 N [id number] 15:09:00* Test Item Value Reference Range Interpretation Comments MAGNESIUM (test code = MAG) 2.3 mg/dL 1.8-2.4 N BASIC METABOLIC [id number] 15:03:00* Test Item Value Reference Range Interpretation [...] CALCIUM (test code = CA) mg/dL 8.5-10.1 [id number] 15:03:00* Test Item Value Reference Range Interpretation Comments PHOSPHORUS (test code = PHOS) mg/dL 2.5-4.9 [id number] 15:03:00* Test Item Value Reference Range Interpretation Comments MAGNESIUM (test code = MAG) mg/dL 1.8-2.4 [id number] 13:05:00* Test Item Value Reference Range Interpretation Comments TROPONIN-I (test code = TROPI) 0.037 ng/mL 0-0.045 N COMMENTS TO MANUFACTURING PLANT TECHNICIAN: COLLECT 3 HOURS AFTER PREVIOUS [id number] 10:40:00* Test Item Value Reference Range Interpretation Comments TROPONIN-I (test code = TROPI) 0.049 ng/mL 0-0.045 HH Results called to YOZ2378 by V.LAB.KP3 03/01/20 1040Critical results verified and read back by Nurse? YES [id number] 08:33:00* Test Item Value Reference Range Interpretation Comments TROPONIN-I (test code = TROPI) 0.068 ng/mL 0-0.045 HH Results called to IEH3987 by V.LAB.JP1 03/01/20 0833Critical results verified and read back by Nurse? YES COMMENTS TO MANUFACTURING PLANT TECHNICIAN: COLLECT 3 HOURS AFTER PREVIOUS SAMPLELIPID PROFILE [...] result is a direct measurement.========= BASIC METABOLIC [id number] 03:39:00* Test Item Value Reference Range Interpretation [...] code = CA) 6.8 mg/dL 8.5-10.1 L [id number] 03:39:00* Test Item Value Reference Range Interpretation Comments PHOSPHORUS (test code = PHOS) 3.5 mg/dL 2.5-4.9 N [id number] 03:39:00* Test Item Value Reference Range Interpretation Comments MAGNESIUM (test code = MAG) 1.6 mg/dL 1.8-2.4 L CALCIUM [id number] 03:39:00* Test Item Value Reference Range Interpretation Comments CALCIUM IONIZED (test code = OCHOA) 1.07 mmol/L 1.12-1.32 L BASIC METABOLIC [id number] 03:19:00* Test Item Value Reference Range Interpretation [...] code = CA) 6.8 mg/dL 8.5-10.1 L [id number] 03:19:00* Test Item Value Reference Range Interpretation Comments PHOSPHORUS (test code = PHOS) 3.5 mg/dL 2.5-4.9 N [id number] 03:19:00* Test Item Value Reference Range Interpretation Comments MAGNESIUM (test code = MAG) 1.6 mg/dL 1.8-2.4 L CALCIUM [id number] 03:19:00* Test Item Value Reference Range Interpretation Comments CALCIUM IONIZED (test code = OCHOA) mmol/L 1.12-1.32 BASIC METABOLIC [id number] 03:15:00* Test Item Value Reference Range Interpretation [...] code = CA) 6.8 mg/dL 8.5-10.1 L [id number] 03:15:00* Test Item Value Reference Range Interpretation Comments PHOSPHORUS (test code = PHOS) mg/dL 2.5-4.9 [id number] 03:15:00* Test Item Value Reference Range Interpretation Comments MAGNESIUM (test code = MAG) mg/dL 1.8-2.4 CALCIUM [id number] 03:15:00* Test Item Value Reference Range Interpretation Comments CALCIUM IONIZED (test code = OCHOA) mmol/L 1.12-1.32 CBC W/MANUAL [id number] 03:13:00* Test Item Value Reference Range Interpretation [...] IMMAT) 0 % 0-0 N CBC W/MANUAL [id number] 02:50:00* Test Item Value Reference Range Interpretation [...] MORPHOLOGY (test code = PLTMORPH) CBC W/MANUAL [id number] 02:47:00* Test Item Value Reference Range Interpretation [...] MORPHOLOGY (test code = PLTMORPH) CBC W/MANUAL [id number] 02:47:00* Test Item Value Reference Range Interpretation [...] MORPHOLOGY (test code = PLTMORPH) CBC W/MANUAL [id number] 02:47:00* Test Item Value Reference Range Interpretation [...] MORPHOLOGY (test code = PLTMORPH) CBC W/MANUAL [id number] 02:47:00* Test Item Value Reference Range Interpretation [...] PLATELET MORPHOLOGY (test code = PLTMORPH) URINALYSIS [id number] 22:37:00* Test Item Value Reference Range Interpretation [...] per HPF NONE Urine Source? Clean CatchURINALYSIS [id number] 22:37:00* Test Item Value Reference Range Interpretation [...] Source? Clean Catch- CT ABD PELVIS W/O [id number] 22:00:00 Name: SADA KARIMI [facility] : 1950 Age/S: 69 / F [address] [facility] Unit #: [id number] Loc: [place] [address] Phys: Erick Frias MD Acct: [id number] Di s Date: Status: REG ER PHONE #: Exam Date: 02/29/20202148 FAX #: Reason: ttp lower abd EXAMS: CPT CODE: [id number] CT ABD PELVIS W/O CONT 46391 REASON FOR EXAM: ttp lowe r abd [...] 1 Signed Report (CONTINUED) Name: SADA KARIMI [facility] : 1950 Age/S: 69 / F [address] [facility] Unit #: [id number] Loc: [place] [address] Phys: Leilani Frias MD Acct: [id number] Dis Date: Status: REG ER PHONE #: [phone] Exam Date: 02/29/20202148 FAX #: [phone] Reason: ttp lower abd EXAMS: CPT CODE: [id number] CT ABD PELVIS W/O CONT 02252 < Continued> sigmoid and descending colon without [...] with dendriform pulmonary ossifications chronic aspiration. Location: [facility] at 2200 Reported and signed by: Caleb Salas MD CC: Leilani Frias MD Technologist:Cristal Hamilton RT(R); [facility] Doa CTDI: DLP: Trnscb Date/Time: 02/29/2020 (2199) [email or web address] Orig Print D/T: S: 02/29/2020 (2202) PAGE 2 Signed Report LACTIC [id number] 21:02:00* Test Item Value Reference Range Interpretation Comments LACTIC ACID (test code = LACT) 1.6 mmol/L 0.4-1.9 N - CT HEAD/BRAIN W/O [id number] 20:57:00 Name: SADA KARIMI [facility] : 1950 Age/S: 69 / F [address] [facility] Unit #: [id number] Loc: [place] [address] Phys: Leilani Frias MD Acct: [id number] Dis Date: Status: REG ER PHONE #: [phone] Exam Date: 02/29/20202049 FAX #: [phone] Reason: AMS EXAMS: CPT CODE: [id number] CT HEAD/BRAIN W/O CONT 45507 HISTORY: AMS TECHNIQUE: Noncontrast 2.5 mm axial [...] prior CT scan of the brain. Location: [facility] at 2056 Reported and signed by: Caleb Salas MD CC: Leilani Alanis MD Technologist:Cristal Hamilton RT (R); Bladimir Dyer CTDI: DLP: Trnscb Date/Time: 02/29/2020 (2056) t.[email or web address] R.[email or web address] Orig Print D/T: S: 02/29/2020 (2100) PAGE 1 Signed Report - XR CHEST 1 V 2020-02-29 20:16:00 FAX: Ashley Denis [phone] [place]: St: REG FAX: Leilani Bedolla [phone] Name: SADA KARIMI [facility] : 1950 Age/S: 69/F [address] [facility] Unit #: [id number] Loc: [place] [address] Phys: Ashley Atkinson MD Acct: [id number] Dis Date: Status: REG ER PHONE #: [phone] Exam Date: 02/29/2020 08 FAX #: [phone] Reason: line placement EXAMS: CPT CODE: [id number] XR CHEST 1 V 52852 REASON FOR EXAM: line placement Exam Order Date: 02/29/2020 8:05 PM Ordering Caitie: Ashley Atkinson MD PROCEDURE: - XR CHEST 1 V COMPARISON: Chest x-ray earlier today FINDINGS/ IMPRESSION: A right IJ central line has been placed into the right atrium. No postprocedure pneumothorax. Remaining findings are unchanged. Location: [facility] at 2016 Reported and signed by: Caleb Salas MD CC: Ashley Atkinson MD; Leilani Frias MD Technologist: BHARTI MARIN , RT(R); ... Trnscrd Date/Time/By: 02/29/2020 (2015) : By: [email or web address] Orig Print D/T: S: 02/29/2020 (2023) PAGE 1 Signed Report CBC W/MANUAL [id number] 17:24:00* Test Item Value Reference Range Interpretation [...] IMMAT) 0 % 0-0 N B-TYPE NATRIURETIC [id number] 17:22:00* Test Item Value Reference Range Interpretation Comments B-TYPE NATRIURETIC PEPTIDE (test code = BNP) 388.52 pgram/mL 0-100 H BASIC METABOLIC [id number] 17:11:00* Test Item Value Reference Range Interpretation [...] CA) 8.7 mg/dL 8.5-10.1 N HEPATIC FUNCTION [id number] 17:11:00* Test Item Value Reference Range Interpretation [...] reference range due to change in reagent. [id number] 17:11:00* Test Item Value Reference Range Interpretation Comments LIPASE (test code = LIP) 30 U/L 73.0-393.0 L [id number] 17:11:00* Test Item Value Reference Range Interpretation Comments TROPONIN-I (test code = TROPI) 0.076 ng/mL 0-0.045 Results called to [id number] by VZakiyaLAB.[facility] 02/29/20 1710Critical results verified and read back by Nurse? Y LACTIC [id number] 17:10:00* Test Item Value Reference Range Interpretation Comments LACTIC ACID (test code = LACT) 6.7 mmol/L 0.4-1.9 HH Results called to [id number] by SMITH 02/29/20 1710Critical results verified and read back by Nurse? Y PROTHROMBIN [id number] 16:58:00* Test Item Value Reference Range Interpretation [...] (2.5-3.5) IS PATIENT ON ANTICOAGULANTS? NTHROMBOPLASTIN TIME [id number] 16:58:00* Test Item Value Reference Range Interpretation Comments THROMBOPLASTIN TIME PARTIAL (test code = PTT) 52.1 seconds 25.0-36. 5 H IS PATIENT ON ANTICOAGULANTS? N- XR CHEST 1 [id number] 16:57:00 FAX: Leilani Bedolla [phone] [place]: B St: REG Name: SADA LANDAVERDE [facility] : [birth year] Age/S: 69/F [address] Unit #: [id number] Loc: [place] [address] Phys: Leilani Frias Acct: [id number] Dis Date: Status: REG ER PHONE #: [phone] Exam Date: 02/29/2020 1635 FAX #: [phone] Reason: CODE SEPSIS EXAMS: CPT CODE: [id number] XR CHEST 1 V 29723 REASON FOR EXAM: CODE SEPS IS Exam Order Date: 02/29/2020 4:23 PM Ordering Caitie: Leilani Frias MD PROCEDURE: - XR CHEST [...] y is unchanged from prior exam. Location: [facility] at 1657 Reported and signed by: Caleb Salas MD CC: Leilani Frias MD Technologist: Rei Bell, RT(R; ... Trnscrd Date/Time/By: 02/29/2020 (956) : By: [email or web address] .[email or web address] Orig Print D/T: S: 02/29/2020 (9278) PAGE 1 Signed Report BASIC METABOLIC [id number] 16:56:00* Test Item Value Reference Range Interpretation [...] code = CA) mg/dL 8.5-10.1 HEPATIC FUNCTION [id number] 16:56:00* Test Item Value Reference Range Interpretation [...] TOTAL (test code = ALKP) IUnit/L 45-117 [id number] 16:56:00* Test Item Value Reference Range Interpretation Comments LIPASE (test code = LIP) U/L 73.0-393.0 [id number] 16:56:00* Test Item Value Reference Range Interpretation Comments TROPONIN-I (test code = TROPI) ng/mL 0-0.045 CBC W/MANUAL [id number] 16:49:00* Test Item Value Reference Range Interpretation [...] MORPHOLOGY (test code = PLTMORPH) CBC W/MANUAL [id number] 16:48:00* Test Item Value Reference Range Interpretation [...] MORPHOLOGY (test code = PLTMORPH) CBC W/MANUAL [id number] 16:48:00* Test Item Value Reference Range Interpretation [...] MORPHOLOGY (test code = PLTMORPH) CBC W/MANUAL [id number] 16:48:00* Test Item Value Reference Range Interpretation [...] MORPHOLOGY (test code = PLTMORPH) CBC W/MANUAL [id number] 16:48:00* Test Item Value Reference Range Interpretation [...] (test code = PLTMORPH) - XR FLUORO [id number] 14:03:00 Name: SADA KARIMI [facility] : 1950 Age/S: 68 / F [address] [facility] Unit #: [id number] Loc: [place] [address] Phys: Andrew Hedrick II, MD Acct: [id number] Dis Date: Status: ADM IN PHONE #: [phone] Exam Date: 09/03/2019 1305 FAX #: [phone] Reason: EXAMS: CPT CODE: [id number] XR FLUORO NDL 37791 Fluoro Time: 33 DAP (Gy m2): 2.91 [...] sheath into the urinary bladder. A 22 Citizen [place] Jansen catheter was advanced over the guidewire into the urinary bladder. The retention balloon was inflated. Contrast was injected to document intraluminal position of the new suprapubic catheter MEDICATIONS: None COMPLICATIONS: None Blood loss: Less than 5 mL Fluoroscopic time: 33 seconds Radiation dose: 9 mGy IMPRESSION: Technically successful placement of 22 Citizen [place] suprapubic catheter at 1403 Reported and signed by: Richie Howard M.D. CC: Andrew Hedrick II, MD Technologist: Kena SOSA(R) Trnscb Date/Time: 09/03/2019 (3755) [email or web address] Orig Print D/T: S: 09/03/2019 (6278) PAGE 1 Signed Report PROTHROMBIN [id number] 12:38:00* Test Item Value Reference Range Interpretation [...] PHLEBO TOMIST: NEED STAT FOR PROCEDURETHROMBOPLASTIN TIME [id number] 12:38:00* Test Item Value Reference Range Interpretation Comments THROMBOPLASTIN TIME PARTIAL (test code = PTT) 38.3 seconds 25.0-36. 5 H IS PATIENT ON ANTICOAGULANTS? YLIST ANTICOAGULANTS ASPIRINCOMMENTS TO PHLEBO TOMIST: NEED STAT FOR PROCEDURE- CT ABD PELVIS W/O [id number] 18:52:00 Name: SADA KARIMI [facility] : 1950 Age/S: 68 / F [address] [facility] Unit #: [id number] Loc: [place] [address] Phys: Flavio Michele MD Acct: [id number] Di s Date: Status: REG ER PHONE #: [phone] Exam Date: 09/02/2019 3467 FAX #: [phone] Reason: abd pain, suprapubic cath placement Report Has Been Amended EXAMS: CPT CODE: [id number] CT ABD PELVIS W/O CONT 77897 Addendum - 09/02/2019 SIGNED 09/02 ADDENDUM: [id number] CT/CTABPLWO The s uprapubic catheter balloon is within the urinary bladder. No radiopaque ob struction is seen within the catheter lumen. The catheter does not appear to enter the urethra. Electronically Signed by Caleb Salas MD on 07/2019 at 1852 Reported and signed by: Caleb Salas MD Transcribed: 09/02/2019 (789) [email or web address] Report REASON FOR EXAM: abd pain, suprapubic cath placement EXAM ORDER D ATE: 09/02/2019 3:40 PM Ordering M.DZakiya: Theodore Michele MD PROCEDURE: - CT ABD [...] 1 Signed Report (CONTINUED) Name: SADA KARIMI [facility] : 1950 Age/S: 68 / F [address] [facility] Unit #: [id number] Loc: [place] [address] Phys: Theodore Michele MD Acct: [id number] Dis Date: Status: REG ER PHONE #: [phone] Exam Date: 09/02/2019 16 45 FAX #: [phone] Reason: abd pain, suprapubic cat h placement Report Has Been Amended EXAMS: CPT CODE: [id number] CT ABD PELVIS W/O CONT 15281 <Continued> Spleen: Grossly normal Adrenal glands: Grossly [...] aortic atherosclerosis. Electronical ly Signed by Caleb Salas MD on 09/02/2019 at 1752 Report ed and signed by: Caleb Salas MD PAGE 2 Signed R eport (CONTINUED) Name: SADA KARIMI [facility] : 1950 Age/S: 68 / F [address] Unit #: [id number] Loc: [place] [address] Phys: Theodore Michele MD Acct: [id number] Dis Date: Status: REG ER PHONE #: [phone] Exam Date: 09/02/20191644 FAX #: [phone] Reason: abd pain, suprapubic cath placement Report Has Been Amended EXAMS: CPT CODE: [id number] C T ABD PELVIS W/O CONT 53701 <Continued> CC: Theodore Michele MD Technologist:Holley Liao RT(R),CT; CTDI: DLP: Trnscb Date/Time: 09/02/2019 (1751) [email or web address] Orig Print D/T: S: 09/02/2019 (1754) PAGE 3 Signed Report - CT ABD PELVIS W/O [id number] 17:52:00 Name: SADA KARIMI [facility] : 1950 Age/S: 68 / F [address] [facility] [facility] Unit #: [id number] Loc: [place] [address] Phys: Flavio Michele MD Acct: [id number] Di s Date: Status: REG ER PHONE #: Exam Date: 09/02/2019 164 FAX #: Reason: abd pain, suprapubic cath placement EXAMS: CPT CODE: [id number] CT ABD PELVIS W/O CONT 42672 REASON FOR EXAM: abd pain , suprapubic cath placement EXAM ORDER DATE: 09/02/2019 3:40 PM Ordering MAna Maria: Theodore Michele MD PROCEDURE: - CT ABD [...] Signed Report (CONTINUE D) Name: SADA KARIMI [facility] : 1950 Age/S: 68 / F [address] [facility] Unit #: [id number] Loc: [place] [address] Phys: Theodore Michele MD Acct: [id number] Dis Date: Status: REG ER PHONE # : [phone] Exam Date: 09/02/2019 1645 FAX #: Reason: abd pain, suprapubic cath placement EXAMS: CPT CODE: [id number] CT ABD PEL VIS W/O CONT 47146 <Continued> Abdominal vascular structures: Atherosclerotic disease is [...] (175) t.[email or web address].RR31 Orig Print D/T: S: 09/02/2019 (8683) PAGE 2 Signed Report BASIC METABOLIC PANEL [...] CA) 8.8 mg/dL 8.5-10.1 N HEPATIC FUNCTION [id number] 17:01:00* Test Item Value Reference Range Interpretation [...] reference range due to change in reagent. [id number] 17:01:00* Test Item Value Reference Range Interpretation Comments LIPASE (test code = LIP) 116 U/L 73.0-393.0 N BASIC METABOLIC [id number] 16:53:00* Test Item Value Reference Range Interpretation [...] code = CA) mg/dL 8.5-10.1 HEPATIC FUNCTION [id number] 16:53:00* Test Item Value Reference Range Interpretation [...] TOTAL (test code = ALKP) IUnit/L 45-117 [id number] 16:53:00* Test Item Value Reference Range Interpretation Comments LIPASE (test code = LIP) U/L 73.0-393.0 CBC W/O [id number] 16:44:00* Test Item Value Reference Range Interpretation [...] 9.7 fL 6.7-11.0 N - XR SWLW [facility] W/C [id number] 11:41:00 FAX: Jackelin Parham MD [phone] [place]: B St: DIS FAX: Betty Mejia [phone] Name: SADA KARIMI [facility] : 1950 Age/S: 68/F [address] Unit #: [id number] Loc: [place] [place] [address] Phys: Betty Mejia NP Acct: [id number] Dis Date: [id number] Status: DIS IN PHONE #: [phone] Exam Date: 07/01/2019 1333 FAX #: [phone] Reason: EVALULATION FOR THIN LIQUID EXAMS: CPT CODE: [id number] XR SWLW FUNC W/C V 65685 EXAM: Modified barium swallow; INFORMATION: Dyspha dalia; [...] : By: ShirleyGRW PAGE 1 Signed Report [id number] 16:22:00* Test Item Value Reference Range Interpretation Comments GLUBED (test code = GLUBED) 72 mg/dL 74-106 L Performed by certified coordinate measuring equipment operator at [facility] [id number] 11:41:00* Test Item Value Reference Range Interpretation Comments GLUBED (test code = GLUBED) 96 mg/dL 74-106 N Performed by certified coordinate measuring equipment operator at [facility] [id number] 08:24:00* Test Item Value Reference Range Interpretation Comments GLUBED (test code = GLUBED) 68 mg/dL 74-106 L Performed by certified coordinate measuring equipment operator at [facility] [id number] 20:31:00* Test Item Value Reference Range Interpretation Comments GLUBED (test code = GLUBED) 81 mg/dL 74-106 N Performed by certified coordinate measuring equipment operator at [facility] [id number] 15:45:00* Test Item Value Reference Range Interpretation Comments GLUBED (test code = GLUBED) 105 mg/dL 74-106 N Performed by certified coordinate measuring equipment operator at [facility] [id number] 11:46:00* Test Item Value Reference Range Interpretation Comments GLUBED (test code = GLUBED) 120 mg/dL 74-106 H Performed by certified coordinate measuring equipment operator at [facility] [id number] 08:01:00* Test Item Value Reference Range Interpretation Comments GLUBED (test code = GLUBED) 80 mg/dL 74-106 N Performed by certified coordinate measuring equipment operator at [facility] BASIC METABOLIC [id number] 05:51:00* Test Item Value Reference Range Interpretation [...] CA) 7.7 mg/dL 8.5-10.1 L BASIC METABOLIC [id number] 05:51:00* Test Item Value Reference Range Interpretation [...] CA) 7.7 mg/dL 8.5-10.1 L CBC W/AUTO [id number] 05:31:00* Test Item Value Reference Range Interpretation [...] DIFF REQUIRED (test code = MDIFF) NO [id number] 21:07:00* Test Item Value Reference Range Interpretation Comments GLUBED (test code = GLUBED) 81 mg/dL 74-106 N Performed by certified coordinate measuring equipment [facility]ified Nurse~ [id number] 16:38:00* Test Item Value Reference Range Interpretation Comments GLUBED (test code = GLUBED) 78 mg/dL 74-106 N Performed by certified coordinate measuring equipment operator at [facility] BASIC METABOLIC [id number] 13:24:00* Test Item Value Reference Range Interpretation Comments SODIUM (test code = NA) 145 mmol/L 136-145 N POTASSIUM (test code = K) 2.9 mmol/L 3.5-5.1 L Re sults called to [id number] by V.LABCAIO 06/29/19 1323Critical results verified and read back [...] code = CA) 7.9 mg/dL 8.5-10.1 L [id number] 12:56:00* Test Item Value Reference Range Interpretation Comments GLUBED (test code = GLUBED) 124 mg/dL 74-106 H Performed by certified coordinate measuring equipment operator at [facility] CBC W/AUTO [id number] 12:32:00* Test Item Value Reference Range Interpretation [...] code = NRBC#) 0.00 K/mm3 0.0-0.1 N [id number] 08:10:00* Test Item Value Reference Range Interpretation Comments GLUBED (test code = GLUBED) 99 mg/dL 74-106 N Performed by certified coordinate measuring equipment operator at [facility] [id number] 20:56:00* Test Item Value Reference Range Interpretation Comments GLUBED (test code = GLUBED) 95 mg/dL 74-106 N Performed by certified coordinate measuring equipment operator at [facility]~ [id number] 18:55:00* Test Item Value Reference Range Interpretation Comments GLUBED (test code = GLUBED) 112 mg/dL 74-106 H Performed by certified coordinate measuring equipment operator at [facility] [id number] 12:44:00* Test Item Value Reference Range Interpretation Comments GLUBED (test code = GLUBED) 136 mg/dL 74-106 H Performed by certified coordinate measuring equipment operator at [facility] BASIC METABOLIC [id number] 11:35:00* Test Item Value Reference Range Interpretation [...] code = CA) 7.6 mg/dL 8.5-10.1 L [id number] 08:28:00* Test Item Value Reference Range Interpretation Comments GLUBED (test code = GLUBED) 118 mg/dL 74-106 H Performed by certified coordinate measuring equipment operator at [facility] CBC W/MANUAL [id number] 08:03:00* Test Item Value Reference Range Interpretation [...] (test code = PLTMORPH) NORMAL CBC W/MANUAL [id number] 05:03:00* Test Item Value Reference Range Interpretation [...] MORPHOLOGY (test code = PLTMORPH) CBC W/MANUAL [id number] 05:03:00* Test Item Value Reference Range Interpretation [...] MORPHOLOGY (test code = PLTMORPH) CBC W/MANUAL [id number] 05:03:00* Test Item Value Reference Range Interpretation [...] MORPHOLOGY (test code = PLTMORPH) CBC W/MANUAL [id number] 05:02:00* Test Item Value Reference Range Interpretation [...] MORPHOLOGY (test code = PLTMORPH) CBC W/MANUAL [id number] 05:02:00* Test Item Value Reference Range Interpretation [...] PLTEST) PLATELET MORPHOLOGY (test code = PLTMORPH) [id number] 16:09:00* Test Item Value Reference Range Interpretation Comments GLUBED (test code = GLUBED) 111 mg/dL 74-106 H Performed by certified coordinate measuring equipment operator [facility]~ [id number] 12:16:00* Test Item Value Reference Range Interpretation Comments GLUBED (test code = GLUBED) 61 mg/dL 74-106 L Performed by certified coordinate measuring equipment operator at [facility] BASIC METABOLIC [id number] 11:47:00* Test Item Value Reference Range Interpretation [...] 7.8 mg/dL 8.5-10.1 L TSH REFLEX TO [id number] 11:47:00* Test Item Value Reference Range Interpretation Comments TSH REFLEX TO FT4 (test code = TSHREFLEX) 2.7 0.4-5.5 N BASIC METABOLIC [id number] 11:37:00* Test Item Value Reference Range Interpretation [...] = CA) mg/dL 8.5-10.1 TSH REFLEX TO [id number] 11:37:00* Test Item Value Reference Range Interpretation Comments TSH REFLEX TO FT4 (test code = TSHREFLEX) 0.4-5.5 CBC W/MANUAL [id number] 09:44:00* Test Item Value Reference Range Interpretation [...] code = IMMAT) 0 % 0-0 N [id number] 09:07:00* Test Item Value Reference Range Interpretation Comments GLUBED (test code = GLUBED) 63 mg/dL 74-106 L Performed by certified coordinate measuring equipment operator at [facility] CBC W/MANUAL [id number] 08:46:00* Test Item Value Reference Range Interpretation [...] PLTEST) PLATELET MORPHOLOGY (test code = PLTMORPH) [id number] 08:46:00* Test Item Value Reference Range Interpretation Comments GLYCOSYLATED HEMOGLOBIN (HA1C) (test code = GLYHGB) 5.0 % HbA1 4. 8-6.0 N ESTIMATED AVERAGE GLUCOSE (test code = EAG) 97 MG/DL CBC W/MANUAL [id number] 08:46:00* Test Item Value Reference Range Interpretation [...] MORPHOLOGY (test code = PLTMORPH) CBC W/MANUAL [id number] 08:46:00* Test Item Value Reference Range Interpretation [...] MORPHOLOGY (test code = PLTMORPH) CBC W/MANUAL [id number] 08:46:00* Test Item Value Reference Range Interpretation [...] MORPHOLOGY (test code = PLTMORPH) CBC W/MANUAL [id number] 08:46:00* Test Item Value Reference Range Interpretation [...] PLATELET MORPHOLOGY (test code = PLTMORPH) URINALYSIS [id number] 03:08:00* Test Item Value Reference Range Interpretation [...] FEW #/LPF FEW Urine Source? Clean CatchPROTHROMBIN [id number] 22:45:00* Test Item Value Reference Range Interpretation [...] heart valves (2.5-3.5) HEMOLYZED, REDRAW REQUESTED FROM [facility].06/26/191935 PATIENT O N ANTICOAGULANTS? NTHROMBOPLASTIN TIME [id number] 22:45:00* Test Item Value Reference Range Interpretation Comments THROMBOPLASTIN TIME PARTIAL (test code = PTT) 30.4 seconds 25.0-36. 5 N HEMOLYZED, REDRAW REQUESTED FROM [facility].06/26/19 PATIENT O N ANTICOAGULANTS? NCBC W/MANUAL [id number] 22:12:00* Test Item Value Reference Range Interpretation [...] code = IMMAT) 0 % 0-0 N [id number] 20:05:00* Test Item Value Reference Range Interpretation Comments MAGNESIUM (test code = MAG) 2.2 mg/dL 1.8-2.4 N B-TYPE NATRIURETIC [id number] 20:05:00* Test Item Value Reference Range Interpretation Comments B-TYPE NATRIURETIC PEPTIDE (test code = BNP) 144.16 pgram/mL 0-100 H LACTIC [id number] 19:27:00* Test Item Value Reference Range Interpretation Comments LACTIC ACID (test code = LACT) 1.0 mmol/L 0.4-1.9 N BASIC METABOLIC [id number] 19:26:00* Test Item Value Reference Range Interpretation [...] CA) 7.7 mg/dL 8.5-10.1 L HEPATIC FUNCTION [id number] 19:26:00* Test Item Value Reference Range Interpretation [...] reference range due to change in reagent. [id number] 19:26:00* Test Item Value Reference Range Interpretation Comments TROPONIN-I (test code = TROPI) <0.015 ng/mL 0-0.045 N CBC W/MANUAL [id number] 19:25:00* Test Item Value Reference Range Interpretation [...] MORPHOLOGY (test code = PLTMORPH) CBC W/MANUAL [id number] 19:25:00* Test Item Value Reference Range Interpretation [...] MORPHOLOGY (test code = PLTMORPH) CBC W/MANUAL [id number] 19:25:00* Test Item Value Reference Range Interpretation [...] MORPHOLOGY (test code = PLTMORPH) CBC W/MANUAL [id number] 19:25:00* Test Item Value Reference Range Interpretation [...] MORPHOLOGY (test code = PLTMORPH) CBC W/MANUAL [id number] 19:25:00* Test Item Value Reference Range Interpretation [...] MORPHOLOGY (test code = PLTMORPH) BASIC METABOLIC [id number] 19:17:00* Test Item Value Reference Range Interpretation [...] code = CA) mg/dL 8.5-10.1 HEPATIC FUNCTION [id number] 19:17:00* Test Item Value Reference Range Interpretation [...] TOTAL (test code = ALKP) IUnit/L 45-117 [id number] 19:17:00* Test Item Value Reference Range Interpretation Comments TROPONIN-I (test code = TROPI) ng/mL 0-0.045 POC LACTIC [id number] 18:59:00* Test Item Value Reference Range Interpretation Comments POC LACTIC ACID (test code = POCLAC) 1.19 MMOL/L 0.4-2.2 N - XR CHEST 1 [id number] 18:58:00 FAX: Ashley Denis [phone] [place]: [address] St: PRE Name: Rose Mary RUEDASADA SHERIDAN [facility] : [birth year] Age/S: 68/F [address] [facility] Unit #: [id number] Loc: [place] [address] Phys: Ashley Atkinson Acct: [id number] Dis Date: Status: PRE ER PHONE #: [phone] Exam Date: 06/26/2019 1850 FAX #: [phone] Reason: CODE SEPSIS EXAMS: CPT CODE: [id number] XR CHEST 1 V 26633 REASON FOR EXAM: CODE SEPS IS EXAM ORDER DATE: 06/26/2019 6:34 PM Ordering M.DZakiya: Ashley Aktinson MD PROCEDURE: - XR CHEST 1 V [...] Trnscrd Date/Time/By: 06/26/20 19 (1857) : By: [email or web address] Orig Print D/T: S: 06/26/2019 (190) PAGE 1 Signed Report - CT ABD PELVIS [id number] 02:44:00 Name: SADA KARIMI [facility] : 1950 Age/S: 68 / F [address] [facility] Unit #: [id number] Loc: [place] [address] Phys: Carla Hunt MD Acct: [id number] Dis Date: Status: REG ER PHONE #: [phone] Exam Date: 05/05/2019 0215 FAX #: [phone] Reason: ABD PAIN EXAMS: CPT CODE: [id number] CT ABD PELVIS W/CONT 11696 EXAM: - CT ABD PELVIS W/CONT HISTORY: [...] Signed Report (CONTINUED) Name: SADA KARIMI [facility] : 1950 Age/S: 68 / F [address] [facility] Unit #: [id number] Loc: [place] [address] Phys: Carla Hunt MD Acct: [id number] Dis Date: Status: REG ER PHONE #: [phone] Exam Date: 05/05/2019214 FAX #: [phone] Reason: ABD PAIN EXAMS: CPT CODE: [id number] CT ABD PELVIS W/CONT 28021 < Continued> at 0244 Reported and signed by: Peyman Pereira MD CC: Carla Hunt MD Technologist:ISABELLE JACOBO CTDI: DLP: Trnscb Date/Time: 05/05/2019 (024) [email or web address] Orig Print D/T: S: 05/05/2019 (024) PAGE 2 Signed Report CBC W/AUTO [id number] 22:51:00* Test Item Value Reference Range Interpretation [...] (test code = MDIFF) NO COMPREHENSIVE METABOLIC [id number] 22:44:00* Test Item Value Reference Range Interpretation [...] due to change in reagent. COMPREHENSIVE METABOLIC [id number] 22:37:00* Test Item Value Reference Range Interpretation [...] (test code = ALKP) IUnit/L 45-117 URINALYSIS [id number] 19:29:00* Test Item Value Reference Range Interpretation [...]
[2020-08-07] MEDS ORDERED: GENTAMICIN SULFATE 100 MG in SODIUM CHLORIDE 0.9% 100 ML 100 ML IV ONE (17:45)
[2020-08-07] MEDS ORDERED: ONDANSETRON HCL INJ 2MG/ML 2ML 2 MG/ML VIAL IV PRN (17:45)
[2020-08-07] MEDS ORDERED: SODIUM CHLORIDE 0.9% 1000ML 1,000 ML IV SCH (17:45)
--- OUTSIDE RECORDS SUMMARY | 2020-08-07 17:57 | XMS REPORT | Continuity of Care Document ---
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 Name Role Phone MD Miguel BRODY EMERALD PCP HAMPEL, NEHEMIA Attphys Unavailable KILLAM, JUANY Attphys Unavailable KILLAM, JUANY Admphys Unavailable Payers Payer Name Policy Type Policy Number Effective Date Expiration Date S ource Medicare A & B NA 2015 00:00:00 [facility] TMHP NA 2015 00:00:00 [facility] NA [facility] Problems Condition Name Condition Details Condition Category Status Onset Date Resolution Date Last Treatment Date Treating Clinician Comments Source Urinary tract infection Problem Active [facility] Weakness Problem Active [facility] Dementia Problem Active [facility] Pseudomonas urinary tract infection Problem Active [facility] Allergies, Adverse Reactions, Alerts Allergy Name Allergy Type Status Severity Reaction(s) Onset Date Inacti ve Date Treating Clinician Comments Source No Known Allergies DA Active U 2020-03-24 00:00:00 [facility] No Known Allergies DA Active U 2019-06-26 00:00:00 [facility] No Known Allergies DA Active U 2019-05-04 00:00:00 [facility] No Known Allergies DA Active U 2019-03-07 00:00:00 [facility] No Known Allergies DA Active U 2017-11-26 00:00:00 [facility] Social History Social Habit Start Date Stop Date Quantity Comments Source Sex Assigned At 1950 00:00:00 1950 00:00:00 Female [facility] Medications Ordered Medication Name Filled Medication Name Start Date Stop Da te Current Medication? Ordering Clinician Indication Dosage Frequency Signature (SIG) Comments Components Source Aspirin Aspirin Yes 1 Daily [facility] Atorvastatin Calcium Atorvastatin Calcium Yes 40 Bedtime [facility] Dabigatran Etexilate Mesylate (Pradaxa) 75 Mg CAPSULE Dabigatran Etexilate Mesylate (Pradaxa) 75 Mg CAPSULE Yes 1 Twice A Day [facility] Docusate Sodium Docusate Sodium Yes 100 Daily [facility] Ferrous Sulfate Ferrous Sulfate Yes 1 Twice A Day [facility] Folic Acid/Cyanocob/Pyridoxine (Nephro-Annie Tablet) 1 Ea TAB Folic Acid/Cyanocob/Pyridoxine (Nephro-Annie Tablet) 1 Ea TAB Yes 1 Daily [facility] Lactulose Lactulose Yes 30 Daily [facility] Levothyroxine Sodium Levothyroxine Sodium Yes 75 Daily [facility] Metoprolol Tartrate Metoprolol Tartrate Yes 75 Every 12 Hours [facility] Midodrine Hcl Midodrine Hcl Yes 5 Twice A Day [facility] Ciprofloxacin Hcl (Cipro) 500 Mg TABLET Ciprofloxacin Hcl (C ipro) 500 Mg TABLET 2020-04-11 00:00:00 No 500 Every 12 Hours [facility] Vital Signs Vital Name Observation Time Observation Value Comments Source Body Temperature 2020-04-11 16:01:00 98.3 [degF] [facility] BMI (Body Mass Index) 2020-04-10 17:10:00 33.7 kg/m2 [facility] Weight 2020-04-10 13:37:00 190 [lb_av] [facility] Procedures Procedure Date / Time Performed Performing Clinician Eyal wake[place] CT of abdomen and pelvis without contrast 2020-04-10 00:00:00 [facility] Encounters Start Date/Time End Date/Time [facility] ID Source 2020-04-10 15:47:00 2020-04-11 18:48:00 Discharged Inpatient 1 JUANY AWAD [facility] [id number] [facility] Results Test Description Test Time Test Comments Results Result Comments Source RETROGRADE PYELOGRAM 2020-04-13 12:40:00 [facility] [address] [address] Patient Name: SADA KARIMI MR #: [id number] : 1950 Age/Sex: 69/F Req #: [id number] Adm Physician: Ordered by: ARSLAN GRIGSBY MD Report #: [id number] Location: OR Room/Bed: Procedure: [id number] DX/RETROGRADE PYELOGRAM Exam Date: 04/13/20 Exam Time: [...] Count (test code = 6690-2) 5.09 4.8-10.8 [facility] automated count (number/volume)2020-04-11 05:20:00* Test Item Value Reference Range Interpretation Comments Red Blood Count (test code = 789-8) 3.81 3.6-5.1 [facility] hemoglobin measurement (moles/volume)2020-04-11 05:20:00* Test Item Value Reference Range Interpretation Comments Hemoglobin (test code = 70775-1) 10.2 12.0-16.0 [facility] Texas[facility] blood hematocrit (volume fraction)2020-04-11 05:20:00* Test Item Value Reference Range Interpretation Comments Hematocrit (test code = 4544-3) 34.0 34.2-44.1 [facility] Texas[facility] erythrocyte mean corpuscular rvzynj1299-60-59 05:20:00* Test Item Value Reference Range Interpretation Comments Mean Corpuscular Volume (test code = 787-2) 89.2 81-99 [facility] TexasAutom[facility] erythrocyte mean corpuscular hemoglobin (mass per erythrocyte)2020-04-11 05:20:00* Test Item Value Reference Range Interpretation Comments Mean Corpuscular Hemoglobin (test code = 785-6) 26.8 28-32 [facility] TexasAutom[facility] erythrocyte mean corpuscular hemoglobin concentration measurement (mass/volume)2020-04-11 05:20:00* Test Item Value Reference Range Interpretation Comments Mean Corpuscular Hemoglobin Concent (test code = 786-4) 30.0 31-35 [facility] TexasRDW TmjIx-Hdu7235-98-18 05:20:00* Test Item Value Reference Range Interpretation Comments Red Cell Distribution Width (test code = 70818-0) 15.9 11.7 -14.4 [facility] TexasAutom[facility] blood platelet count (count/volume)2020-04-11 05:20:00* Test Item Value Reference Range Interpretation Comments Platelet Count (test code = 777-3) 144 140-360 [facility] TexasAutom[facility] blood segmented neutrophil count as percentage of total brfzgtmlsd4511-89-56 05:20:00* Test Item Value Reference Range Interpretation Comments Neutrophils (%) (Auto) (test code = 06931-1) 69.3 38.7-80.0 [facility] TexasAutom[facility] blood lymphocyte count as percentage ot total jhmmayfgbq6960-19-22 05:20:00* Test Item Value Reference Range Interpretation Comments Lymphocytes (%) (Auto) (test code = 736-9) 17.7 18.0-39.1 [facility] TexasAutom[facility] blood monocyte count as percentage of total zhfepnrido3597-08-14 05:20:00* Test Item Value Reference Range Interpretation Comments Monocytes (%) (Auto) (test code = 5905-5) 5.3 4.4-11.3 [facility] TexasAutom[facility] blood eosinophil count as percentage of total wfirksmrhp4257-42-98 05:20:00* Test Item Value Reference Range Interpretation Comments Eosinophils (%) (Auto) (test code = 713-8) 6.3 0.0-6.0 [facility] TexasAutom[facility] blood basophil count as percentage of total ppenjbtjrh0495-16-56 05:20:00* Test Item Value Reference Range Interpretation Comments Basophils (%) (Auto) (test code = 706-2) 1.0 0.0-1.0 [facility] TexasFluoroscopic procedure less than one hour baxfwytu9874-00-74 05:20:00* Test Item Value Reference Range Interpretation Comments IM GRANULOCYTES % (test code = IM GRANULOCYTES %) 0.4 0.0- 1.0 [facility] TexasAutom[facility] blood neutrophil count 2020-04-11 05:20:00* Test Item Value Reference Range Interpretation Comments Neutrophils # (Auto) (test code = 751-8) 3.5 2.1-6.9 [facility] TexasBlood lymphocytes count (number/volume) 2020-04-11 05:20:00* Test Item Value Reference Range Interpretation Comments Lymphocytes # (Auto) (test code = 02279-9) 0.9 1.0-3.2 [facility] TexasBlood monocytes automated count (number/volume)2020-04-11 05:20:00* Test Item Value Reference Range Interpretation Comments Monocytes # (Auto) (test code = 742-7) 0.3 0.2-0.8 [facility] TexasAutomated blood eosinophil count 2020-04-11 05:20:00* Test Item Value Reference Range Interpretation Comments Eosinophils # (Auto) (test code = 711-2) 0.3 0.0-0.4 [facility] TexasAutomated blood basophil count (count/volume)2020-04-11 05:20:00* Test Item Value Reference Range Interpretation Comments Basophils # (Auto) (test code = 704-7) 0.1 0.0-0.1 [facility] TexasFluoroscopic procedure less than one hour vtarebrq0467-66-12 05:20:00* Test Item Value Reference Range Interpretation Comments Absolute Immature Granulocyte (auto (kaz t code = Absolute Immature Granulocyte (auto) 0.02 0-0.1 [facility] or plasma sodium measurement (moles/volume)2020-04-11 05:20:00* Test Item Value Reference Range Interpretation Comments Sodium Level (test code = 2951-2) 142 136-145 [facility]westerum or plasma potassium measurement (moles/volume)2020-04-11 05:20:00* Test Item Value Reference Range Interpretation Comments Potassium Level (test code = 2823-3) 3.9 3.5-5.1 [facility]westerum or plasma chloride measurement (moles/volume)2020-04-11 05:20:00* Test Item Value Reference Range Interpretation Comments Chloride Level (test code = 2075-0) 114 98-107 [facility]westerum or plasma carbon dioxide, total measurement (moles/volume)2020-04-11 05:20:00* Test Item Value Reference Range Interpretation Comments Carbon Dioxide Level (test code = 2028-9) 21 22-29 [facility]westerum or plasma anion nub9567-29-72 05:20:00* Test Item Value Reference Range Interpretation Comments Anion Gap (test code = 45086-6) 10.9 8-16 [facility]westerum or plasma urea nitrogen measurement (mass/volume)2020-04-11 05:20:00* Test Item Value Reference Range Interpretation Comments Blood Urea Nitrogen (test code = 3094-0) 11 7-26 [facility]westerum or plasma creatinine measurement (mass/volume)2020-04-11 05:20:00* Test Item Value Reference Range Interpretation Comments Creatinine (test code = 2160-0) 0.86 0.57-1.11 [facility]um or plasma urea nitrogen/creatinine mass inqms2075-62-19 05:20:00* Test Item Value Reference Range Interpretation Comments BUN/Creatinine Ratio (test code = 3097-3) 13 6-25 [facility] TexasEstimated glomerular filtration rate (GFR) npcputkkolacu9203-45-98 05:20:00* Test Item Value Reference Range Interpretation Comments Estimat Glomerular Filtration Rate (test code = 409817088) > 60 >60 Ranges were taken from the National Kidney Disease Education Program and the [facility] Kidney Foundation literature.Reference ranges:60 or greater: Vwjzgm45-55 ( for 3 consecutive months): Chronic kidney disease 15 or less: Kidney failureWoman's Hospital of TexasGlucose vlqxnlnzgqm9019-65-79 05:20:00* Test Item Value Reference Range Interpretation Comments Glucose Level (test code = HTD7124) 80 74-118 [facility]westerum or plasma calcium measurement (mass/volume)2020-04-11 05:20:00* Test Item Value Reference Range Interpretation Comments Calcium Level (test code = 44504-0) 8.1 8.4-10.2 [facility]westerum or plasma total bilirubin measurement (mass/volume)2020-04-11 05:20:00* Test Item Value Reference Range Interpretation Comments Total Bilirubin (test code = 1975-2) 0.6 0.2-1.2 [facility] TexasFluoroscopic procedure less than one hour hvgppgyz0819-09-15 05:20:00* Test Item Value Reference Range Interpretation Comments Aspartate Amino Transf (AST/SGOT) (test code = Aspartate Amino Transf (AST/SGOT)) 13 5-34 [facility]westerum or plasma alanine aminotransferase measurement (enzymatic activity/volume)2020-04-11 05:20:00* Test Item Value Reference Range Interpretation Comments Alanine Aminotransferase (ALT/SGPT) (test code = 1742-6) < 6 0-55 [facility]westerum or plasma protein measurement (mass/volume)2020-04-11 05:20:00* Test Item Value Reference Range Interpretation Comments Total Protein (test code = 2885-2) 5.6 6.5-8.1 [facility]westerum or plasma albumin measurement (mass/volume)2020-04-11 05:20:00* Test Item Value Reference Range Interpretation Comments Albumin (test code = 1751-7) 2.3 3.5-5.0 [facility] TexasPlasma globulin measurement (mass/volume) 2020-04-11 05:20:00* Test Item Value Reference Range Interpretation Comments Globulin (test code = 79879-6) 3.3 2.3-3.5 [facility]westerum or plasma albumin/globulin mass jaidh8096-23-58 05:20:00* Test Item Value Reference Range Interpretation Comments Albumin/Globulin Ratio (test code = 1759-0) 0.7 0.8-2.0 [facility]um or plasma alkaline phosphatase measurement (enzymatic activity/volume)2020-04-11 05:20:00* Test Item Value Reference Range Interpretation Comments Alkaline Phosphatase (test code = 6768-6) 91 40-150 [facility]westerum or plasma thyrotropin measurement by detection limit <= 0.005 miu/l (units/volume)2020-04-11 05:20:00* Test Item Value Reference Range Interpretation Comments Thyroid Stimulating Hormone (TSH) (test code = 02881-1) 7.359 0.350-4.940 [facility] TexasCT [facility]BDOM[facility]/PELVIS EL2310-07-42 17:02:00 [facility] [address] [place] [address] Patient Name: SADA KARIMI MR #: [id number] : 1950 Age/Sex: 69/F Req #: [id number] Adm Physician: JUANY AWAD MD Ordered by: KENY PEÑA MD Re port #: [id number] Location: [facility]UR[facility] Room/ Bed: [facility]-1 Procedure: [id number] CT/CT ABDOMEN /PELVIS WO Exam Date: 04/10/20 [...] KENY SMITH MD CHEST SINGLE (PORTABLE)2020-04-10 15:05:[address] [address] Patient Name: SADA KARIMI MR #: [id number] : 1950 Age/Sex: 69/F Req #: [id number] Adm Physician: Ordered by: HÉCTOR THOMSON SUPPLY CHAIN COORDINATOR Report #: [id number] Location: [facility] bah/Bed: Procedure: [id number] DX/CHEST SI NGLE (PORTABLE) Exam Date: 04/10/20 [...] Dictated By: GLENNA Calixto 1506 Transcribed By: ODALYS PEREZ on 04/10/20 1506 COPY TO: HÉCTOR THOMSON SUPPLY CHAIN COORDINATOR Prothrombin time (PT) in platelet poor plasma by coagulation hcwtq2432-70-36 13:10:00* Test Item Value Reference Range Interpretation Comments Prothrombin Time (test code = 5902-2) 13.4 11.9-14.5 [facility] TexasINR in Platelet poor plasma by Coagulation izhql3320-17-19 13:10:00* Test Item Value Reference Range Interpretation Comments Prothromb Time International Ratio (test code = 6301-6) 0.96 Oral Anticoagulant Therapy INR Values:1. Low Intensity Therapy 1.5 - 2.02 . Moderate Intensity Therapy 2.0 - 3.03. High Intensity Therapy(1) 2.5 - 3. 54. High Intensity Therapy(2) 3.0 - 4.05. Panic Value INR > 5.0 [facility] TexasActivated partial thromboplastin time (aPTT) in platelet poor plasma by coagulation tqlgn9846-43-84 13:10:00* Test Item Value Reference Range Interpretation Comments Activated Partial Thromboplast Time (test code = 17724-6) 34.3 23.8-35.5 [facility] TexasUrine color oygvtiulvdbwe1730-13-50 13:10:00* Test Item Value Reference Range Interpretation Comments Urine Color (test code = 5778-6) ORANGE YELLOW [facility] TexasUrine mdmvrst5613-57-56 13:10:00* Test Item Value Reference Range Interpretation Comments Urine Clarity (test code = 52919-3) CLOUDY CLEAR [facility] Northwestpecific gravity of Urine by Test strip 2020-04-10 13:10:00* Test Item Value Reference Range Interpretation Comments Urine Specific [place] (test code = 5811-5) >=1.030 1.010-1.02 5 [facility] TexasUrine pH measurement by automated test bctkx2067-45-63 13:10:00* Test Item Value Reference Range Interpretation Comments Urine pH (test code = 66096-8) 6.5 5-7 [facility] TexasUrine leukocyte esterase detection by nvnwkhix8239-16-59 13:10:00* Test Item Value Reference Range Interpretation Comments Urine Leukocyte Esterase (test code = 5799-2) LARGE NEGATIVE [facility] TexasUrine nitrite xyfttcgma6386-16-30 13:10:00* Test Item Value Reference Range Interpretation Comments Urine Nitrite (test code = 06865-8) NEGATIVE NEGATIVE [facility] TexasUrine protein measurement by test strip (mass/volume)2020-04-10 13:10:00* Test Item Value Reference Range Interpretation Comments Urine Protein (test code = 5804-0) >=300 NEGATIVE [facility] TexasUrine glucose elthpamii3989-32-43 13:10:00* Test Item Value Reference Range Interpretation Comments Urine Glucose (UA) (test code = 2349-9) NEGATIVE NEGATIVE [facility] TexasUrine ketones detection by automated test hiicj7268-35-67 13:10:00* Test Item Value Reference Range Interpretation Comments Urine Ketones (test code = 29143-8) NEGATIVE NEGATIVE [facility] TexasUrine urobilinogen measurement by test strip (mass/volume)2020-04-10 13:10:00* Test Item Value Reference Range Interpretation Comments Urine Urobilinogen (test code = 90870-8) 1 0.2-1 [facility] TexasUrine total bilirubin measurement (mass/volume)2020-04-10 13:10:00* Test Item Value Reference Range Interpretation Comments Urine Bilirubin (test code = 1978-6) SMALL NEGATIVE [facility] TexasUrine erythrocytes lppjkhjuu6960-88-95 13:10:00* Test Item Value Reference Range Interpretation Comments Urine Blood (test code = 35416-2) LARGE NEGATIVE [facility] TexasAutomated urine sediment leukocyte count by microscopy (number/high power field)2020-04-10 13:10:00* Test Item Value Reference Range Interpretation Comments Urine WBC (test code = 5821-4) >50 0-5 [facility] TexasErythrocytes detection in urine sediment by light keylwjrwru2506-56-46 13:10:00* Test Item Value Reference Range Interpretation Comments Urine RBC (test code = 25181-3) >50 0-5 [facility] TexasBacteria detection in urine sediment by light hdtcgmxlkk3985-79-40 13:10:00* Test Item Value Reference Range Interpretation Comments Urine Bacteria (test code = 40431-3) MANY NONE [facility] TexasEpithelial cells detection in urine sediment by light dsgtqsrrcd2820-69-44 13:10:00* Test Item Value Reference Range Interpretation Comments Urine Epithelial Cells (test code = 61270-2) FEW NONE [facility]westerum or plasma creatine kinase measurement (enzymatic activity/volume)2020-04-10 13:10:00* Test Item Value Reference Range Interpretation Comments Creatine Kinase (test code = 2157-6) 11 29-168 [facility]westerum or plasma creatine kinase MB measurement (mass/volume)2020-04-10 13:10:00* Test Item Value Reference Range Interpretation Comments Creatine Kinase MB (test code = 94612-7) 0.20 0-5.0 [facility] TexasTroponin I measurement by highly sensitive enzyme wbsvbtfqlem3430-15-35 13:10:00* Test Item Value Reference Range Interpretation Comments Troponin I (test code = 79875-5) 0.003 0-0.300 [facility] TexasBlood oklbdrh1796-84-00 13:10:00* Test Item Value Reference Range Interpretation Comments Blood Culture (test code = 53400702) NO GROWTH AFTER 24 HOURS [facility] TexasBacterial urine cjdonix9267-14-37 13:10:00* Test Item Value Reference Range Interpretation Comments Urine Culture (test code = 630-4) GRAM NEGATIVE BACILLUS [facility] TexasTROPONIN-E8866-63-29 08:22:00* Test Item Value Reference Range Interpretation Comments TROPONIN-I (test code = TROPI) <0.015 ng/mL 0-0.045 N - CT ABD PELVIS W/DNVQ6597-22-82 08:11:00 Name: SADA KARIMI [facility] : 1950 Age/S: 69 / F [address] [facility] Unit #: [id number] [place] [address] Phys: Carlos Townsend DO Acct: [id number] Dis Date: Status: REG ER PHONE #: [phone] Exam Date: 03/24/2020 0322 FAX #: [phone] Reason: abd pain EXAMS: CPT CODE: [id number] CT ABD PELVIS W/CONT 33202 HISTORY: Abdominal pain. COMPARISON: CT scan from [...] 1 Signed Report (CONTINUED) Name: SADA KARIMI [facility] : 1950 Age/S: 69 / F [address] [facility] Unit #: [id number] [place]: [place] [address] Phys: Carlos Townsend DO Acct: [id number] Dis Date: atus: [facility] ER PHONE #: [phone] Exam [facility] e: 03/24/2020 0755 FAX #: [phone] Reason: abd zuleika n EXAMS: CPT CODE: [id number] CT ABD PELVIS W/CONT 91210 <Continued> decompressed urinary bladder is well which [...] Technologist:Danielle Brody,RT(R),CT CTDI: DLP: Trnscb Date/Time: 03/24/2020 (08) t.SDR.TH4 Orig Print D/T: S: 03/24/2020 (14) PAGE 2 Signed Report BASIC METABOLIC [id number] 08:04:00* Test Item Value Reference Range Interpretation [...] CA) 8.0 mg/dL 8.5-10.1 L HEPATIC FUNCTION [id number] 08:04:00* Test Item Value Reference Range Interpretation [...] reference range due to change in reagent. [id number] 08:04:00* Test Item Value Reference Range Interpretation Comments LIPASE (test code = LIP) 66 U/L 73.0-393.0 L BASIC METABOLIC [id number] 07:16:00* Test Item Value Reference Range Interpretation [...] CA) 8.0 mg/dL 8.5-10.1 L HEPATIC FUNCTION [id number] 07:16:00* Test Item Value Reference Range Interpretation [...] TOTAL (test code = ALKP) IUnit/L 45-117 [id number] 07:16:00* Test Item Value Reference Range Interpretation Comments LIPASE (test code = LIP) U/L 73.0-393.0 BASIC METABOLIC [id number] 07:08:00* Test Item Value Reference Range Interpretation [...] code = CA) mg/dL 8.5-10.1 HEPATIC FUNCTION [id number] 07:08:00* Test Item Value Reference Range Interpretation [...] TOTAL (test code = ALKP) IUnit/L 45-117 [id number] 07:08:00* Test Item Value Reference Range Interpretation Comments LIPASE (test code = LIP) U/L 73.0-393.0 CBC W/O [id number] 06:33:00* Test Item Value Reference Range Interpretation [...] fL 6.7-11.0 N - XR CHEST 1 E0489-07-06 06:21:00 FAX: Carlos Townsend DO [place]: B St: REG Name: SADA LANDAVERDE [facility] : [birth year] Age/S: 69/F [address] Unit #: [id number] Loc: [place], [place] [address] Phys: Carlos Townsend DO Acct: [id number] Dis Date: Status: REG ER PHONE #: [phone] Exam Date: 03/24/2020 0604 FAX #: [phone] Reason: abd pain EXAMS: CPT CODE: [id number] XR CHEST 1 V 59333 - XR CHEST 1 V, 03/24/2020 5:49 [...] 03/24/2020 (623) PAGE 1 Signed Report URINALYSIS [id number] 06:19:00* Test Item Value Reference Range Interpretation Comments UA COLOR (test code = COLU) RED YELLOW A Previously reported result: ORANGE Edited by: MIGUELGP on 03/24/20:63574703/24/20 0619: COLOR previously reported as: ORANGE H [...] FEW #/LPF FEW Urine Source? Clean CatchURINALYSIS [id number] 06:17:00* Test Item Value Reference Range Interpretation [...] FEW Urine Source? Clean Catch- XR CYSTOURETHRO [id number] 13:42:00 FAX: Ashu Carlton MD [phone] [place]: St: ADM FAX: Jaden Mcmahon [phone] Name: SADA KARIMI [facility] : 1950 Age/S: 69/F [address] [facility] Unit #: [id number] Loc: V.[address] [place] [address] Phys: Jaden Rodgers Acct: [id number] Dis Date: Status: ADM IN PHONE #: [phone] Exam Date: 03/11/2020 1330 FAX #: [phone] Reason: CYSTO EXAMS: CPT CODE: [id number] XR CYSTOURETHRO RETRO 16282 CLINICAL HISTORY: CYSTO TECHNIQUE: Intraoperative fluoroscopic images from retrograde urogram. Fluoroscopy time 18 seconds;D ose: 3.1 mGy. IMPRESSION: Left percutaneous ne phrostomy tube was removed and left ureteral stent was placed. Location: [facility] Electronically Signed by Caleb Salas MD on at 1342 Reported and signed by: Caleb Salas MD CC: Ashu Carlton MD; Jaden Rodgers M.D. Technologist: Felecia Abdul) Nylas crd Date/Time/By: 03/11/2020 (5442) : By: [email or web address] Orig Print D/T: S: 03/11/2020 (8387) PAGE 1 Signed Report BASIC METABOLIC [id number] 05:57:00* Test Item Value Reference Range Interpretation [...] CA) 7.6 mg/dL 8.5-10.1 L CBC W/O [id number] 05:26:00* Test Item Value Reference Range Interpretation [...] 10.9 fL 6.7-11.[address] BODY FLUID CELL CT/[id number] 18:04:00* Test Item Value Reference Range Interpretation Comments FLUID SOURCE (test code = SOURCEFL) ABSCESS FLUID COLOR (test code = COLFL) PINKISH COLORLESS FLUID APPEARANCE (test code = APPFL) HAZY FLUID WBC AUTO (test code = WBCFLA) 805859 cells/uL FLUID RBC AUTO (test code = RBCFLA) 509860 cells/uL FLUID TOTAL CELLS (test code = TCFL) 734592 cells/uL >0 Fluid WBC RBC Type cells/uL [...] = REVIEW) PATHOLOGIST RODRÍGUEZ SHELLEY M.D.03/10/20REVIEWED - [facility] NEPHR CATH [id number] 15:23:00 Name: SADA KARIMI [facility] : 1950 Age/S: 69 / F [address] [facility] Unit #: [id number] Loc: [place] [address] Phys: Ashu Carlton MD Acct: [id number] Dis Date: Status: ADM IN PHONE #: [phone] Exam Date: 03/10/2020 1023 FAX #: [phone] Reason: EXAMS: CPT CODE: [id number] [facility] NEPHR CATH 67516 Fluoro Time: 322 DAP (Gy m2): 8.83 [...] was aspirated from the needle. Using the 3 day Blinds system, an 035 guidewire was inserted. A 5 Gibraltarian Kumpe catheter was then inserted into the [...] been decompressed with a Jansen catheter. 9 Gibraltarian peel-away sheath was inserted followed by insertion of a secon d guidewire. Subsequently, a 10 Gibraltarian nephrostomy tube was inserted and c oiled with its pigtail portion in the renal pelvis. Purulent urine w as aspirated and samples were sent to the lab. A 5 [place] [address] was then advanced [...] present. 2. Successful insertion of a 10 Gibraltarian nephrostomy t ube. 3. Successful insertion of a temporary 5 Gibraltarian nephroureteral internal/external tube. Fluoroscopy Time: 322 sec PAGE 1 Signed Report (CONTINUED) Name: SADA MAYFIELD [facility] : [birth year] Age/S: 69 / F [address] [facility] Unit #: [id number] Loc: [place] [address] Phys: Ashu Carlton Acct: [id number] Dis Date: Status: ADM IN PHONE #: [phone] Exam Date: 03/10/2020 1029 FAX #: [phone] R dale: EXAMS: CPT CODE: [id number] [facility] [place] [address] Fluoro Time: 322 DAP (Gy m2): 8.83 Air Kerma (mGy): 77 <Continued> CAK : 77 mGy DAP : 8830 mGy sq cm Location code: [facility] at 1523 Reported and signed by: Gregorio Hartman M.D. CC: Ashu Carlton MD Technologist: Nicolle Fernandez Trnakb Date/Time: 03/10/2020 (152) [email or web address] Orig Print D/T: S: 03/10/2020 (1526) PAGE 2 Signed Report - [facility] NEPH [id number] 15:23:00 Name: SADA KARIMI [facility] : 1950 Age/S: 69 / F [address] [facility] Unit #: [id number] Loc: [place] [address] Phys: Ashu Carlton MD Acct: [id number] Dis Date: Status: ADM IN PHONE #: [phone] Exam Date: 03/10/2020 1029 FAX #: [phone] Reason: EXAMS: CPT CODE: [id number] [facility] NEPH CATH 30867 Fluoro Time: 322 DAP (Gy m2): 8.83 [...] was aspirated from the needle. Using the 3 day Blinds system, an 035 guidewire was inserted. A 5 [place]tarian Kumpe catheter was then inserted into the proximal ureter. Contrast was injected and irregular filling defects were seen in the ureter consistent with curette material and probably also a stone. However this stone was not clearly identified due to other filling defects. The guidewire was then directed into the urinary bladder which have been decompressed with a Jansen catheter. 9 Gibraltarian peel-away sheath was inserted followed by insertion of a second guidewire. Subsequently, a 10 Gibraltarian nephrostomy tube was inserted and c oiled with its pigtail portion in the renal pelvis. Purulent urine w as aspirated and samples were sent to the lab. A 5 [place] [address] was then advanced [...] present. 2. Successful insertion of a 10 Gibraltarian nephrostomy t ube. 3. Successful insertion of a temporary 5 Gibraltarian nephroureteral internal/external tube. Fluoroscopy Time: 322 sec PAGE 1 Signed Report (CONTINUED) Name: SADA MAYFIELD [facility] : [birth year] Age/S: 69 / F [address] [facility] Unit #: [id number] Loc: [place] [address] Phys: Ashu Carlton Acct: [id number] Dis Date: Status: ADM IN PHONE #: [phone] Exam Date: 03/10/2020 1023 FAX #: [phone] R dale: EXAMS: CPT CODE: [id number] [facility] NEPH CATH 33164 Fluoro Time: 322 DAP (Gy m2): 8.83 Air Kerma (mGy): 77 <Continued> CAK : 77 mGy DAP : 8830 mGy sq cm Location code: [facility] at 1523 Reported and signed by: Gregorio Hartman M.D. CC: Ashu Carlton MD Technologist: Nicolle Fernandez Trnscb Date/Time: 03/10/2020 (152) ShirleyGRW Orig Print D/T: S: 03/10/2020 (6322) PAGE 2 Signed Report - [facility] NEPH NEW [id number] 15:23:00 Name: SADA KARIMI [facility] : 1950 Age/S: 69 / F [address] [facility] Unit #: [id number] [place]: [place] [address] Phys: Ashu Carlton MD Acct: [id number] Dis Date: Status: ADM IN PHONE #: [phone] Exam Date: 03/10/2020 1026 FAX #: [phone] Reason: EXAMS: CPT CODE: [id number] [facility] NEPH NEW ACCESS 38816 Fluoro Time: 322 DAP (Gy m2): 8.83 [...] was aspirated from the needle. Using the 3 day Blinds system, an 035 guidewire was inserted. A 5 [place]tarian Kumpe catheter was then inserted into the proximal ureter. Contrast was injected and irregular filling defects were seen in the ureter consistent with curette material and probably also a stone. However this stone was not clearly identified due to other filling defects. The guidewire was then directed into the urinary bladder which have been decompressed with a Jansen catheter. 9 Gibraltarian peel-away sheath was inserted followed by insertion of a second guidewire. Subsequently, a 10 Gibraltarian nephrostomy tube was inserted and c oiled with its pigtail portion in the renal pelvis. Purulent urine w as aspirated and samples were sent to the lab. A 5 [place] [address] Flush [address] was then advanced [...] present. 2. Successful insertion of a 10 Gibraltarian nephrostomy t ube. 3. Successful insertion of a temporary 5 Gibraltarian nephroureteral internal/external tube. Fluoroscopy Time: 322 sec PAGE 1 Signed Report (CONTINUED) Name: SADA MAYFIELD [facility] : [birth year] Age/S: 69 / F [address] [facility] Unit #: [id number] Loc: [place] [address] Phys: Ashu Carlton Acct: [id number] Dis Date: Status: ADM IN PHONE #: [phone] Exam Date: 03/10/2020 1029 FAX #: [phone] R dale: EXAMS: CPT CODE: [id number] [facility] NEPH NEW ACCESS 89595 Fluoro Time: 322 DAP (Gy m2): 8.83 Air Kerma (mGy): 77 <Continued> CAK : 77 mGy DAP : 8830 mGy sq cm Location code: [facility] at 1523 Reported and signed by: Gregorio Hartman M.D. CC: Ashu Carlton MD Technologist: Nicolle Fernandez Trnakb Date/Time: 03/10/2020 (1523) [email or web address] Orig Print D/T: S: 03/10/2020 (1526) PAGE 2 Signed Report - USG NDL PLACEMENT (Bxg/Asp) 2020-03-10 15:23:00 Name: SADA KARIMI [facility] : 1950 Age/S: 69 / F [address] Unit #: [id number] Loc: [place] [address] Phys: Gregorio Hartman MD Acct: [id number] Dis Date: Status: ADM IN PHONE #: [phone] Exam Date: 03/10/2020 1021 FAX #: [phone] Reason: KIDNEY STONE EXAMS: CPT CODE: [id number] USG NDL PLACEMENT (Bxg/Asp) 30967 EXAM: Antegrade nephrostogram with sonographic and fluoroscopic [...] was aspirated from the needle. Using the 3 day Blinds system, an 035 guidewire was inserted. A 5 Gibraltarian Kumpe catheter was then inserted into the proximal ureter. Contrast was injected and irregular filling defects were seen in the ureter consistent with curette material and probably also a stone. However this stone was not clearly identified due to other filling defects. The guidewire was then directed into the urinary bladder which have been decompressed with a Jansen catheter. 9 Gibraltarian peel-away sheath was inserted followed by insertion of a second guidewire. Subsequently, a 10 Gibraltarian nephrostomy tube was inserted and coiled with its pigtail portion in the renal pelvis. Purulent urine was aspirated and samples were sent to the lab. A 5 Gibraltarian Omni Flush catheter was then advanced over [...] present. 2. Successful insertion of a 10 Gibraltarian nephrostomy tube. 3. Successful insertion of a temporary 5 Gibraltarian nephro ureteral internal/external tube. PAGE 1 Signed Report (CONTINUED) Name: SADA KARIMI [facility] : 1950 Age/S: 69 / F [address] [facility] Unit #: [id number] Loc: [place] [address] Phys: Gregorio Hartman MD Acct: [id number] Dis Date: Status: ADM IN PHONE #: [phone] Exam Date: 1021 FAX #: [phone] Reason: KIDNEY STONE EXAMS: CPT CODE: [id number] USG NDL PLACEMENT (Bxg/Asp) 34591 <Continued> Fluoroscopy Time: 322 sec CAK : 77 mGy DAP : 8830 mGy sq cm Location code: [facility] at 1523 Reported and signed by: Gregorio Hartman M.D. CC: Ashu Carlton MD Technologist: SUELLEN HUDDLESTON RT(R),[facility] Trnscb Date/Time: 03/10/2020 (1523) [email or web address] Orig Print D/T: S: 03/10/2020 (1526) Probe: PAGE 2 Signed Report BODY FLUID CELL [id number] 13:11:00 * Test Item Value Reference Range Interpretation Comments FLUID SOURCE (test code = SOURCEFL) ABSCESS FLUID COLOR (test code = COLFL) PINKISH COLORLESS FLUID APPEARANCE (test code = APPFL) HAZY FLUID WBC AUTO (test code = WBCFLA) 313806 cells/uL FLUID RBC AUTO (test code = RBCFLA) 352656 cells/uL FLUID TOTAL CELLS (test code = TCFL) 763748 cells/uL >0 Fluid WBC RBC Type cells/uL [...] code = REVIEW) PATHOLOGIST BODY FLUID CELL [id number] 13:00:00* Test Item Value Reference Range Interpretation Comments FLUID SOURCE (test code = SOURCEFL) FLUID COLOR (test code = COLFL) COLORLESS FLUID APPEARANCE (test code = APPFL) FLUID WBC (test code = WBCFL) per mm3 0-150 FLUID WBC AUTO (test code = WBCFLA) 344496 cells/uL FLUID RBC (test code = RBCFL) per mm3 0-50 FLUID RBC AUTO (test code = RBCFLA) 857442 cells/uL FLUID TOTAL CELLS (test code = TCFL) 984579 cells/uL >0 Fluid WBC RBC Type cells/uL [...] code = REVIEW) PATHOLOGIST BODY FLUID CELL [id number] 10:57:00* Test Item Value Reference Range Interpretation Comments FLUID SOURCE (test code = SOURCEFL) FLUID COLOR (test code = COLFL) COLORLESS FLUID APPEARANCE (test code = APPFL) FLUID WBC (test code = WBCFL) per mm3 0-150 FLUID WBC AUTO (test code = WBCFLA) 915132 cells/uL FLUID RBC (test code = RBCFL) per mm3 0-50 FLUID RBC AUTO (test code = RBCFLA) 051255 cells/uL FLUID TOTAL CELLS (test code = TCFL) 154524 cells/uL >0 Fluid WBC RBC Type cells/uL cells/uL CSF (0-5) n/a Peritoneal n/a n/a Pleural n/a n/a Synovial <200 n/a CSF (0-30) n/a TOTAL CELLS COUNTED ON DIFF (test code = TOTCELLFL) cells REVIEWED BY (test code = REVIEW) PATHOLOGIST CBC W/MANUAL [id number] 06:28:00* Test Item Value Reference Range Interpretation [...] = IMMAT) 0 % 0-0 N PROTHROMBIN [id number] 05:07:00* Test Item Value Reference Range Interpretation [...] TOMORROW.SPECIMEN COMMENTS: FPR PROCEDURE TOMORROW. THROMBOPLASTIN TIME [id number] 05:07:00* Test Item Value Reference Range Interpretation Comments THROMBOPLASTIN TIME PARTIAL (test code = PTT) 44.6 seconds 25.0-36. 5 H IS PATIENT ON ANTICOAGULANTS? YLIST ANTICOAGULANTS ASPIRIN HEPARINSPECIM EN COMMENTS: FOR PROCEDURE TOMORROW.SPECIMEN COMMENTS: FPR PROCEDURE TOMORROW. CBC W/MANUAL [id number] 05:00:00* Test Item Value Reference Range Interpretation [...] MORPHOLOGY (test code = PLTMORPH) CBC W/MANUAL [id number] 05:00:00* Test Item Value Reference Range Interpretation [...] MORPHOLOGY (test code = PLTMORPH) CBC W/MANUAL [id number] 05:00:00* Test Item Value Reference Range Interpretation [...] MORPHOLOGY (test code = PLTMORPH) CBC W/MANUAL [id number] 04:59:00* Test Item Value Reference Range Interpretation [...] MORPHOLOGY (test code = PLTMORPH) CBC W/MANUAL [id number] 04:59:00* Test Item Value Reference Range Interpretation [...] MORPHOLOGY (test code = PLTMORPH) BASIC METABOLIC [id number] 04:56:00* Test Item Value Reference Range Interpretation [...] CA) 7.9 mg/dL 8.5-10.1 L BASIC METABOLIC [id number] 04:49:00* Test Item Value Reference Range Interpretation [...] code = CA) mg/dL 8.5-10.1 BASIC METABOLIC [id number] 05:09:00* Test Item Value Reference Range Interpretation [...] CA) 7.1 mg/dL 8.5-10.1 L BASIC METABOLIC [id number] 05:05:00* Test Item Value Reference Range Interpretation [...] CA) 7.1 mg/dL 8.5-10.1 L BASIC METABOLIC [id number] 11:48:00* Test Item Value Reference Range Interpretation [...] CA) 7.6 mg/dL 8.5-10.1 L CBC W/AUTO [id number] 03:31:00* Test Item Value Reference Range Interpretation [...] = MDIFF) NO, ONLY SCAN NEEDED DIFFERENTIAL [id number] 03:31:00* Test Item Value Reference Range Interpretation Comments STAIN ACCEPTABILITY (test code = STN ACCEPTABLE) STAIN ACCEPTABLE MORPHOLOGY COMMENT (test code = MOC) TEST NOT PERFORMED PLATELET ESTIMATE (test code = PLTEST) DECREASED PLATELET MORPHOLOGY (test code = PLTMORPH) NORMAL BASIC METABOLIC [id number] 02:25:00* Test Item Value Reference Range Interpretation [...] code = CA) 7.8 mg/dL 8.5-10.1 L [id number] 02:25:00* Test Item Value Reference Range Interpretation Comments PHOSPHORUS (test code = PHOS) 2.1 mg/dL 2.5-4.9 L [id number] 02:25:00* Test Item Value Reference Range Interpretation Comments MAGNESIUM (test code = MAG) 2.0 mg/dL 1.8-2.4 N CALCIUM [id number] 02:25:00* Test Item Value Reference Range Interpretation Comments CALCIUM IONIZED (test code = OCHOA) 1.20 mmol/L 1.12-1.32 N BASIC METABOLIC [id number] 02:18:00* Test Item Value Reference Range Interpretation [...] code = CA) 7.8 mg/dL 8.5-10.1 L [id number] 02:18:00* Test Item Value Reference Range Interpretation Comments PHOSPHORUS (test code = PHOS) 2.1 mg/dL 2.5-4.9 L [id number] 02:18:00* Test Item Value Reference Range Interpretation Comments MAGNESIUM (test code = MAG) 2.0 mg/dL 1.8-2.4 N CALCIUM [id number] 02:18:00* Test Item Value Reference Range Interpretation Comments CALCIUM IONIZED (test code = OCHOA) mmol/L 1.12-1.32 CBC W/AUTO [id number] 02:14:00* Test Item Value Reference Range Interpretation [...] = MDIFF) NO, ONLY SCAN NEEDED DIFFERENTIAL [id number] 02:14:00* Test Item Value Reference Range Interpretation Comments STAIN ACCEPTABILITY (test code = STN ACCEPTABLE) CABOT RINGS (test code = CAB) MORPHOLOGY COMMENT (test code = MOC) PLATELET ESTIMATE (test code = PLTEST) PLATELET MORPHOLOGY (test code = PLTMORPH) CBC W/AUTO [id number] 02:14:00* Test Item Value Reference Range Interpretation [...] = MDIFF) NO, ONLY SCAN NEEDED DIFFERENTIAL [id number] 02:14:00* Test Item Value Reference Range Interpretation Comments STAIN ACCEPTABILITY (test code = STN ACCEPTABLE) CABOT RINGS (test code = CAB) MORPHOLOGY COMMENT (test code = MOC) PLATELET ESTIMATE (test code = PLTEST) PLATELET MORPHOLOGY (test code = PLTMORPH) CBC W/AUTO [id number] 02:14:00* Test Item Value Reference Range Interpretation [...] = MDIFF) NO, ONLY SCAN NEEDED DIFFERENTIAL [id number] 02:14:00* Test Item Value Reference Range Interpretation Comments STAIN ACCEPTABILITY (test code = STN ACCEPTABLE) MORPHOLOGY COMMENT (test code = MOC) PLATELET ESTIMATE (test code = PLTEST) PLATELET MORPHOLOGY (test code = PLTMORPH) CBC W/AUTO [id number] 02:14:00* Test Item Value Reference Range Interpretation [...] = MDIFF) NO, ONLY SCAN NEEDED DIFFERENTIAL [id number] 02:14:00* Test Item Value Reference Range Interpretation Comments STAIN ACCEPTABILITY (test code = STN ACCEPTABLE) CABOT RINGS (test code = CAB) MORPHOLOGY COMMENT (test code = MOC) PLATELET ESTIMATE (test code = PLTEST) PLATELET MORPHOLOGY (test code = PLTMORPH) BASIC METABOLIC [id number] 02:13:00* Test Item Value Reference Range Interpretation [...] CALCIUM (test code = CA) mg/dL 8.5-10.1 [id number] 02:13:00* Test Item Value Reference Range Interpretation Comments PHOSPHORUS (test code = PHOS) mg/dL 2.5-4.9 [id number] 02:13:00* Test Item Value Reference Range Interpretation Comments MAGNESIUM (test code = MAG) mg/dL 1.8-2.4 CALCIUM [id number] 02:13:00* Test Item Value Reference Range Interpretation Comments CALCIUM IONIZED (test code = OCHOA) mmol/L 1.12-1.32 CALCIUM [id number] 05:02:00* Test Item Value Reference Range Interpretation Comments CALCIUM IONIZED (test code = OCHOA) 1.19 mmol/L 1.12-1.32 N REQUESTED A SERUM TUBE, NOTIFIED [id number] CBC W/AUTO [id number] 02:31:00* Test Item Value Reference Range Interpretation [...] = MDIFF) NO, ONLY SCAN NEEDED DIFFERENTIAL [id number] 02:31:00* Test Item Value Reference Range Interpretation [...] (test code = PLTMORPH) NORMAL BASIC METABOLIC [id number] 02:30:00* Test Item Value Reference Range Interpretation [...] code = CA) 7.8 mg/dL 8.5-10.1 L [id number] 02:30:00* Test Item Value Reference Range Interpretation Comments PHOSPHORUS (test code = PHOS) 2.5 mg/dL 2.5-4.9 N [id number] 02:30:00* Test Item Value Reference Range Interpretation Comments MAGNESIUM (test code = MAG) 2.0 mg/dL 1.8-2.4 N CALCIUM [id number] 02:30:00* Test Item Value Reference Range Interpretation Comments CALCIUM IONIZED (test code = OCHOA) mmol/L 1.12-1.32 BASIC METABOLIC [id number] 02:25:00* Test Item Value Reference Range Interpretation [...] CALCIUM (test code = CA) mg/dL 8.5-10.1 [id number] 02:25:00* Test Item Value Reference Range Interpretation Comments PHOSPHORUS (test code = PHOS) mg/dL 2.5-4.9 [id number] 02:25:00* Test Item Value Reference Range Interpretation Comments MAGNESIUM (test code = MAG) mg/dL 1.8-2.4 CALCIUM [id number] 02:25:00* Test Item Value Reference Range Interpretation Comments CALCIUM IONIZED (test code = OCHOA) mmol/L 1.12-1.32 CBC W/AUTO [id number] 02:11:00* Test Item Value Reference Range Interpretation [...] = MDIFF) NO, ONLY SCAN NEEDED DIFFERENTIAL [id number] 02:11:00* Test Item Value Reference Range Interpretation Comments STAIN ACCEPTABILITY (test code = STN ACCEPTABLE) CABOT RINGS (test code = CAB) MORPHOLOGY COMMENT (test code = MOC) PLATELET ESTIMATE (test code = PLTEST) PLATELET MORPHOLOGY (test code = PLTMORPH) CBC W/AUTO [id number] 02:11:00* Test Item Value Reference Range Interpretation [...] = MDIFF) NO, ONLY SCAN NEEDED DIFFERENTIAL [id number] 02:11:00* Test Item Value Reference Range Interpretation Comments STAIN ACCEPTABILITY (test code = STN ACCEPTABLE) CABOT RINGS (test code = CAB) MORPHOLOGY COMMENT (test code = MOC) PLATELET ESTIMATE (test code = PLTEST) PLATELET MORPHOLOGY (test code = PLTMORPH) CBC W/AUTO [id number] 02:11:00* Test Item Value Reference Range Interpretation [...] = MDIFF) NO, ONLY SCAN NEEDED DIFFERENTIAL [id number] 02:11:00* Test Item Value Reference Range Interpretation Comments STAIN ACCEPTABILITY (test code = STN ACCEPTABLE) MORPHOLOGY COMMENT (test code = MOC) PLATELET ESTIMATE (test code = PLTEST) PLATELET MORPHOLOGY (test code = PLTMORPH) CBC W/AUTO [id number] 02:11:00* Test Item Value Reference Range Interpretation [...] = MDIFF) NO, ONLY SCAN NEEDED DIFFERENTIAL [id number] 02:11:00* Test Item Value Reference Range Interpretation Comments STAIN ACCEPTABILITY (test code = STN ACCEPTABLE) CABOT RINGS (test code = CAB) MORPHOLOGY COMMENT (test code = MOC) PLATELET ESTIMATE (test code = PLTEST) PLATELET MORPHOLOGY (test code = PLTMORPH) [id number] 17:36:00* Test Item Value Reference Range Interpretation Comments VANCOMYCIN (test code = VANCO) 10.2 UG/ML 5.0-45.0 N WANTS LAB STILL COLLECTED V.LAB.LB2 03/03/20 1639CBC W/AUTO [id number] 04:19:00* Test Item Value Reference Range Interpretation [...] = MDIFF) NO, ONLY SCAN NEEDED DIFFERENTIAL [id number] 04:19:00* Test Item Value Reference Range Interpretation Comments STAIN ACCEPTABILITY (test code = STN ACCEPTABLE) STAIN ACCEPTABLE POIKILOCYTOSIS (test code = POIK) 2+ ANISOCYTOSIS (test code = ANISO) 1+ AMELIA CELLS (test code = AMELIA) 1+ NONE MORPHOLOGY COMMENT (test code = MOC) TEST NOT PERFORMED PLATELET ESTIMATE (test code = PLTEST) DECREASED PLATELET MORPHOLOGY (test code = PLTMORPH) NORMAL BASIC METABOLIC [id number] 04:16:00* Test Item Value Reference Range Interpretation [...] code = CA) 7.4 mg/dL 8.5-10.1 L [id number] 04:16:00* Test Item Value Reference Range Interpretation Comments PHOSPHORUS (test code = PHOS) 2.5 mg/dL 2.5-4.9 N [id number] 04:16:00* Test Item Value Reference Range Interpretation Comments MAGNESIUM (test code = MAG) 2.2 mg/dL 1.8-2.4 N CALCIUM [id number] 04:16:00* Test Item Value Reference Range Interpretation Comments CALCIUM IONIZED (test code = OCHOA) 1.17 mmol/L 1.12-1.32 N BASIC METABOLIC [id number] 04:04:00* Test Item Value Reference Range Interpretation [...] CALCIUM (test code = CA) mg/dL 8.5-10.1 [id number] 04:04:00* Test Item Value Reference Range Interpretation Comments PHOSPHORUS (test code = PHOS) mg/dL 2.5-4.9 [id number] 04:04:00* Test Item Value Reference Range Interpretation Comments MAGNESIUM (test code = MAG) mg/dL 1.8-2.4 CALCIUM [id number] 04:04:00* Test Item Value Reference Range Interpretation Comments CALCIUM IONIZED (test code = OCHOA) 1.17 mmol/L 1.12-1.32 N CBC W/AUTO [id number] 03:51:00* Test Item Value Reference Range Interpretation [...] = MDIFF) NO, ONLY SCAN NEEDED DIFFERENTIAL [id number] 03:51:00* Test Item Value Reference Range Interpretation Comments STAIN ACCEPTABILITY (test code = STN ACCEPTABLE) CABOT RINGS (test code = CAB) MORPHOLOGY COMMENT (test code = MOC) PLATELET ESTIMATE (test code = PLTEST) PLATELET MORPHOLOGY (test code = PLTMORPH) CBC W/AUTO [id number] 03:51:00* Test Item Value Reference Range Interpretation [...] = MDIFF) NO, ONLY SCAN NEEDED DIFFERENTIAL [id number] 03:51:00* Test Item Value Reference Range Interpretation Comments STAIN ACCEPTABILITY (test code = STN ACCEPTABLE) MORPHOLOGY COMMENT (test code = MOC) PLATELET ESTIMATE (test code = PLTEST) PLATELET MORPHOLOGY (test code = PLTMORPH) CBC W/AUTO [id number] 03:50:00* Test Item Value Reference Range Interpretation [...] = MDIFF) NO, ONLY SCAN NEEDED DIFFERENTIAL [id number] 03:50:00* Test Item Value Reference Range Interpretation Comments STAIN ACCEPTABILITY (test code = STN ACCEPTABLE) CABOT RINGS (test code = CAB) MORPHOLOGY COMMENT (test code = MOC) PLATELET ESTIMATE (test code = PLTEST) PLATELET MORPHOLOGY (test code = PLTMORPH) CBC W/AUTO [id number] 03:50:00* Test Item Value Reference Range Interpretation [...] = MDIFF) NO, ONLY SCAN NEEDED DIFFERENTIAL [id number] 03:50:00* Test Item Value Reference Range Interpretation Comments STAIN ACCEPTABILITY (test code = STN ACCEPTABLE) CABOT RINGS (test code = CAB) MORPHOLOGY COMMENT (test code = MOC) PLATELET ESTIMATE (test code = PLTEST) PLATELET MORPHOLOGY (test code = PLTMORPH) - XR SWLW FUNC W/C [id number] 15:24:00 FAX: Desi Mcmillan MD [phone] [place]: St: [facility] FAX: Shaun Benjamin MD Name: SADA KARIMI [facility] : 1950 Age/S: 69/F [address] [facility] Unit #: [id number] Loc: [address] [address] Phys: Desi Mcmillan MD Acct: [id number] Dis Date: Status: ADM IN PHONE #: [phone] Exam Date: 03/02/2020 1535 FAX #: [phone] Reason: DYSPHAGIA EXAMS: CPT CODE: [id number] XR SWLW FUNC W/C V [id number] EXAM: Modified barium swallow; INFORMATION: Dyspha dalia; IMPRESSION: 1. Silent aspiration was noticed with t hin liquids via cup. 2. Laryngeal penetration was noticed with thin liqu ids wire cup and also with nectar via straw. Fluorosco py Time: 119.2 sec CAK : 7.01 mGy Location code: [facility] at 1524 Reported and signed by: Gregorio Hartman M.D. CC: Desi Mcmillan MD; Shaun Benjamin MD Technologist: Rose Mary JIMENEZ) Trnscrd Date/Time/By: 03/02/2020 (9525) : By: ShirleyGRW Orig Print D/T: S: 03/02/2020 (7241) PAGE 1 Signed Report BASIC METABOLIC [id number] 04:33:00* Test Item Value Reference Range Interpretation [...] code = CA) 7.7 mg/dL 8.5-10.1 L [id number] 04:33:00* Test Item Value Reference Range Interpretation Comments PHOSPHORUS (test code = PHOS) 3.0 mg/dL 2.5-4.9 N [id number] 04:33:00* Test Item Value Reference Range Interpretation Comments MAGNESIUM (test code = MAG) 2.2 mg/dL 1.8-2.4 N CALCIUM [id number] 04:33:00* Test Item Value Reference Range Interpretation Comments CALCIUM IONIZED (test code = OCHOA) 1.17 mmol/L 1.12-1.32 N BASIC METABOLIC [id number] 04:32:00* Test Item Value Reference Range Interpretation [...] CALCIUM (test code = CA) mg/dL 8.5-10.1 [id number] 04:32:00* Test Item Value Reference Range Interpretation Comments PHOSPHORUS (test code = PHOS) mg/dL 2.5-4.9 [id number] 04:32:00* Test Item Value Reference Range Interpretation Comments MAGNESIUM (test code = MAG) mg/dL 1.8-2.4 CALCIUM [id number] 04:32:00* Test Item Value Reference Range Interpretation Comments CALCIUM IONIZED (test code = OCHOA) 1.17 mmol/L 1.12-1.32 N CBC W/MANUAL [id number] 04:26:00* Test Item Value Reference Range Interpretation [...] (test code = PLTMORPH) NORMAL CBC W/MANUAL [id number] 04:07:00* Test Item Value Reference Range Interpretation [...] MORPHOLOGY (test code = PLTMORPH) CBC W/MANUAL [id number] 04:07:00* Test Item Value Reference Range Interpretation [...] MORPHOLOGY (test code = PLTMORPH) CBC W/MANUAL [id number] 04:07:00* Test Item Value Reference Range Interpretation [...] MORPHOLOGY (test code = PLTMORPH) CBC W/MANUAL [id number] 04:06:00* Test Item Value Reference Range Interpretation [...] MORPHOLOGY (test code = PLTMORPH) CBC W/MANUAL [id number] 04:06:00* Test Item Value Reference Range Interpretation [...] MORPHOLOGY (test code = PLTMORPH) BASIC METABOLIC [id number] 15:09:00* Test Item Value Reference Range Interpretation [...] code = CA) 7.4 mg/dL 8.5-10.1 L [id number] 15:09:00* Test Item Value Reference Range Interpretation Comments PHOSPHORUS (test code = PHOS) 3.6 mg/dL 2.5-4.9 N [id number] 15:09:00* Test Item Value Reference Range Interpretation Comments MAGNESIUM (test code = MAG) 2.3 mg/dL 1.8-2.4 N BASIC METABOLIC [id number] 15:03:00* Test Item Value Reference Range Interpretation [...] CALCIUM (test code = CA) mg/dL 8.5-10.1 [id number] 15:03:00* Test Item Value Reference Range Interpretation Comments PHOSPHORUS (test code = PHOS) mg/dL 2.5-4.9 [id number] 15:03:00* Test Item Value Reference Range Interpretation Comments MAGNESIUM (test code = MAG) mg/dL 1.8-2.4 [id number] 13:05:00* Test Item Value Reference Range Interpretation Comments TROPONIN-I (test code = TROPI) 0.037 ng/mL 0-0.045 N COMMENTS TO PHYSICAL TESTING SUPERVISOR: COLLECT 3 HOURS AFTER PREVIOUS [id number] 10:40:00* Test Item Value Reference Range Interpretation Comments TROPONIN-I (test code = TROPI) 0.049 ng/mL 0-0.045 HH Results called to [id number] by V.LAB.KP3 03/01/20 1040Critical results verified and read back by Nurse? YES [id number] 08:33:00* Test Item Value Reference Range Interpretation Comments TROPONIN-I (test code = TROPI) 0.068 ng/mL 0-0.045 HH Results called to [id number] by V.LAB.JP1 03/01/20 0833Critical results verified and read back by Nurse? YES COMMENTS TO PHYSICAL TESTING SUPERVISOR: COLLECT 3 HOURS AFTER PREVIOUS SAMPLELIPID PROFILE [...] result is a direct measurement.========= BASIC METABOLIC [id number] 03:39:00* Test Item Value Reference Range Interpretation [...] code = CA) 6.8 mg/dL 8.5-10.1 L [id number] 03:39:00* Test Item Value Reference Range Interpretation Comments PHOSPHORUS (test code = PHOS) 3.5 mg/dL 2.5-4.9 N [id number] 03:39:00* Test Item Value Reference Range Interpretation Comments MAGNESIUM (test code = MAG) 1.6 mg/dL 1.8-2.4 L CALCIUM [id number] 03:39:00* Test Item Value Reference Range Interpretation Comments CALCIUM IONIZED (test code = OCHOA) 1.07 mmol/L 1.12-1.32 L BASIC METABOLIC [id number] 03:19:00* Test Item Value Reference Range Interpretation [...] code = CA) 6.8 mg/dL 8.5-10.1 L [id number] 03:19:00* Test Item Value Reference Range Interpretation Comments PHOSPHORUS (test code = PHOS) 3.5 mg/dL 2.5-4.9 N [id number] 03:19:00* Test Item Value Reference Range Interpretation Comments MAGNESIUM (test code = MAG) 1.6 mg/dL 1.8-2.4 L CALCIUM [id number] 03:19:00* Test Item Value Reference Range Interpretation Comments CALCIUM IONIZED (test code = OCHOA) mmol/L 1.12-1.32 BASIC METABOLIC [id number] 03:15:00* Test Item Value Reference Range Interpretation [...] code = CA) 6.8 mg/dL 8.5-10.1 L [id number] 03:15:00* Test Item Value Reference Range Interpretation Comments PHOSPHORUS (test code = PHOS) mg/dL 2.5-4.9 [id number] 03:15:00* Test Item Value Reference Range Interpretation Comments MAGNESIUM (test code = MAG) mg/dL 1.8-2.4 CALCIUM [id number] 03:15:00* Test Item Value Reference Range Interpretation Comments CALCIUM IONIZED (test code = OCHOA) mmol/L 1.12-1.32 CBC W/MANUAL [id number] 03:13:00* Test Item Value Reference Range Interpretation [...] IMMAT) 0 % 0-0 N CBC W/MANUAL [id number] 02:50:00* Test Item Value Reference Range Interpretation [...] MORPHOLOGY (test code = PLTMORPH) CBC W/MANUAL [id number] 02:47:00* Test Item Value Reference Range Interpretation [...] MORPHOLOGY (test code = PLTMORPH) CBC W/MANUAL [id number] 02:47:00* Test Item Value Reference Range Interpretation [...] MORPHOLOGY (test code = PLTMORPH) CBC W/MANUAL [id number] 02:47:00* Test Item Value Reference Range Interpretation [...] MORPHOLOGY (test code = PLTMORPH) CBC W/MANUAL [id number] 02:47:00* Test Item Value Reference Range Interpretation [...] PLATELET MORPHOLOGY (test code = PLTMORPH) URINALYSIS [id number] 22:37:00* Test Item Value Reference Range Interpretation [...] per HPF NONE Urine Source? Clean CatchURINALYSIS [id number] 22:37:00* Test Item Value Reference Range Interpretation [...] Source? Clean Catch- CT ABD PELVIS W/O [id number] 22:00:00 Name: SADA KARIMI [facility] : 1950 Age/S: 69 / F [address] [facility] Unit #: [id number] Loc: [place] [address] Phys: Erick Frias MD Acct: [id number] Di s Date: Status: REG ER PHONE #: [phone] Exam Date: 02/29/20202148 FAX #: [phone] Reason: ttp lower abd EXAMS: CPT CODE: [id number] CT ABD PELVIS W/O CONT 08809 REASON FOR EXAM: ttp lowe r abd EXAM ORDER DATE: 02/29/2020 9:28 PM Ordering M.Durga Sigala: Leilani Frias MD PROCEDURE: - CT ABD [...] 1 Signed Report (CONTINUED) Name: SADA KARIMI [facility] : 1950 Age/S: 69 / F [address] [facility] Unit #: [id number] Loc: [place] [address] Phys: Leilani Frias MD Acct: [id number] Dis Date: Status: REG ER PHONE #: [phone] Exam Date: 02/29/20202148 FAX #: [phone] Reason: ttp lower abd EXAMS: CPT CODE: [id number] CT ABD PELVIS W/O CONT 01815 < Continued> sigmoid and descending colon without [...] with dendriform pulmonary ossifications chronic aspiration. Location: [facility] at 2200 Reported and signed by: Caleb Salas MD CC: Leilani Frias MD Technologist:Cristal Hamilton RT(R); [facility] CTDI: DLP: Trnscb Date/Time: 02/29/2020 (2199) [email or web address] Orig Print D/T: S: 02/29/2020 (2202) PAGE 2 Signed Report LACTIC [id number] 21:02:00* Test Item Value Reference Range Interpretation Comments LACTIC ACID (test code = LACT) 1.6 mmol/L 0.4-1.9 N - CT HEAD/BRAIN W/O [id number] 20:57:00 Name: SADA KARIMI [facility] : 1950 Age/S: 69 / F [address] [facility] Unit #: [id number] Loc: [place] [address] Phys: Leilani Frias MD Acct: [id number] Dis Date: Status: REG ER PHONE #: [phone] Exam Date: 02/29/20202049 FAX #: [phone] Reason: AMS EXAMS: CPT CODE: [id number] CT HEAD/BRAIN W/O CONT 70307 HISTORY: AMS TECHNIQUE: Noncontrast 2.5 mm axial [...] prior CT scan of the brain. Location: [facility] at 2056 Reported and signed by: Caleb Salas MD CC: Leilani Alanis MD Technologist:Cristal Hamilton RT (R); [facility] CTDI: DLP: Trnscb Date/Time: 02/29/2020 (2056) t.BRITANY R.RR31 Orig Print D/T: S: 02/29/2020 (2100) PAGE 1 Signed Report - XR CHEST 1 V 2020-02-29 20:16:00 FAX: Ashley Denis [phone] [place]: St: REG FAX: Leilani Bedolla [phone] Name: SADA KARIMI [facility] : 1950 Age/S: 69/F [address] [facility] Unit #: [id number] Loc: [place] [address] Phys: Ashley Atkinson MD Acct: [id number] Dis Date: Status: REG ER PHONE #: [phone] Exam Date: 02/29/2020 08 FAX #: [phone] Reason: line placement EXAMS: CPT CODE: [id number] XR CHEST 1 V 04838 REASON FOR EXAM: line placement Exam Order Date: 02/29/2020 8:05 PM Ordering MAna Maria: Ashley Atkinson MD PROCEDURE: - XR CHEST [...] (2023) PAGE 1 Signed Report CBC W/MANUAL [id number] 17:24:00* Test Item Value Reference Range Interpretation [...] IMMAT) 0 % 0-0 N B-TYPE NATRIURETIC [id number] 17:22:00* Test Item Value Reference Range Interpretation Comments B-TYPE NATRIURETIC PEPTIDE (test code = BNP) 388.52 pgram/mL 0-100 H BASIC METABOLIC [id number] 17:11:00* Test Item Value Reference Range Interpretation [...] CA) 8.7 mg/dL 8.5-10.1 N HEPATIC FUNCTION [id number] 17:11:00* Test Item Value Reference Range Interpretation [...] reference range due to change in reagent. [id number] 17:11:00* Test Item Value Reference Range Interpretation Comments LIPASE (test code = LIP) 30 U/L 73.0-393.0 L [id number] 17:11:00* Test Item Value Reference Range Interpretation Comments TROPONIN-I (test code = TROPI) 0.076 ng/mL 0-0.045 Results called to [id number] by [email or web address] 02/29/20 1710Critical results verified and read back by Nurse? Y LACTIC [id number] 17:10:00* Test Item Value Reference Range Interpretation Comments LACTIC ACID (test code = LACT) 6.7 mmol/L 0.4-1.9 HH Results called to [id number] by SMITH 02/29/20 1710Critical results verified and read back by Nurse? Y PROTHROMBIN [id number] 16:58:00* Test Item Value Reference Range Interpretation [...] (2.5-3.5) IS PATIENT ON ANTICOAGULANTS? NTHROMBOPLASTIN TIME [id number] 16:58:00* Test Item Value Reference Range Interpretation Comments THROMBOPLASTIN TIME PARTIAL (test code = PTT) 52.1 seconds 25.0-36. 5 H IS PATIENT ON ANTICOAGULANTS? N- XR CHEST 1 [id number] 16:57:00 FAX: Leilani Bedolla [phone] [place]: B St: REG Name: SADA LANDAVERDE [facility] : [birth year] Age/S: 69/F [address] Unit #: [id number] Loc: [place] [address] Phys: Leilani Frias Acct: [id number] Dis Date: Status: REG ER PHONE #: [phone] Exam Date: 02/29/2020 1635 FAX #: [phone] Reason: CODE SEPSIS EXAMS: CPT CODE: [id number] XR CHEST 1 V 56975 REASON FOR EXAM: CODE SEPS IS Exam [...] y is unchanged from prior exam. Location: [facility] at 1657 Reported and signed by: Caleb Salas MD CC: Leilani Frias MD Technologist: Rei Bell, RT(R; ... Trnscrd Date/Time/By: 02/29/2020 (0376) : By: Geronimo .RR31 Orig Print D/T: S: 02/29/2020 (1609) PAGE 1 Signed Report BASIC METABOLIC [id number] 16:56:00* Test Item Value Reference Range Interpretation [...] code = CA) mg/dL 8.5-10.1 HEPATIC FUNCTION [id number] 16:56:00* Test Item Value Reference Range Interpretation [...] TOTAL (test code = ALKP) IUnit/L 45-117 [id number] 16:56:00* Test Item Value Reference Range Interpretation Comments LIPASE (test code = LIP) U/L 73.0-393.0 [id number] 16:56:00* Test Item Value Reference Range Interpretation Comments TROPONIN-I (test code = TROPI) ng/mL 0-0.045 CBC W/MANUAL [id number] 16:49:00* Test Item Value Reference Range Interpretation [...] MORPHOLOGY (test code = PLTMORPH) CBC W/MANUAL [id number] 16:48:00* Test Item Value Reference Range Interpretation [...] MORPHOLOGY (test code = PLTMORPH) CBC W/MANUAL [id number] 16:48:00* Test Item Value Reference Range Interpretation [...] MORPHOLOGY (test code = PLTMORPH) CBC W/MANUAL [id number] 16:48:00* Test Item Value Reference Range Interpretation [...] MORPHOLOGY (test code = PLTMORPH) CBC W/MANUAL [id number] 16:48:00* Test Item Value Reference Range Interpretation [...] (test code = PLTMORPH) - XR FLUORO [id number] 14:03:00 Name: SADA KARIMI [facility] : 1950 Age/S: 68 / F [address] [facility] Unit #: [id number] Loc: [place] [address] Phys: Andrew Hedrick II, MD Acct: [id number] Dis Date: Status: ADM IN PHONE #: [phone] Exam Date: 09/03/2019 1305 FAX #: [phone] Reason: EXAMS: CPT CODE: [id number] XR FLUORO NDL 17770 Fluoro Time: 33 DAP (Gy m2): 2.91 [...] sheath into the urinary bladder. A 22 [place] Jansen catheter was advanced over the guidewire into the urinary bladder. The retention balloon was inflated. Contrast was injected to document intraluminal position of the new suprapubic catheter MEDICATIONS: None COMPLICATIONS: None Blood loss: Less than 5 mL Fluoroscopic time: 33 seconds Radiation dose: 9 mGy IMPRESSION: Technically successful placement of 22 Gibraltarian suprapubic catheter at 1403 Reported and signed by: Richie Howard M.D. CC: Andrew Hedrick II, MD Technologist: Kena SOSA(R) Trnscb Date/Time: 09/03/2019 (1638) [email or web address] Orig Print D/T: S: 09/03/2019 (4179) PAGE 1 Signed Report PROTHROMBIN [id number] 12:38:00* Test Item Value Reference Range Interpretation [...] PHLEBO TOMIST: NEED STAT FOR PROCEDURETHROMBOPLASTIN TIME [id number] 12:38:00* Test Item Value Reference Range Interpretation Comments THROMBOPLASTIN TIME PARTIAL (test code = PTT) 38.3 seconds 25.0-36. 5 H IS PATIENT ON ANTICOAGULANTS? YLIST ANTICOAGULANTS ASPIRINCOMMENTS TO PHLEBO TOMIST: NEED STAT FOR PROCEDURE- CT ABD PELVIS W/O [id number] 18:52:00 Name: SADA KARIMI [facility] : 1950 Age/S: 68 / F [address] [facility] Unit #: [id number] Loc: [place] [address] Phys: Flavio Michele MD Acct: [id number] Di s Date: Status: REG ER PHONE #: Exam Date: 09/02/2019 1640 FAX #: [phone] Reason: abd pain, suprapubic cath placement Report Has Been Amended EXAMS: CPT CODE: [id number] CT ABD PELVIS W/O CONT 52919 Addendum - 09/02/2019 SIGNED 09/02 ADDENDUM: [id number] CT/CTABPLWO The s uprapubic catheter balloon is within the urinary bladder. No radiopaque ob struction is seen within the catheter lumen. The catheter does not appear to enter the urethra. Electronically Signed by Caleb Salas MD on 07/2019 at 1852 Reported and signed by: Caleb Salas MD Transcribed: 09/02/2019 (039) [email or web address] Report REASON FOR EXAM: abd pain, suprapubic [...] 1 Signed Report (CONTINUED) Name: SADA KARIMI [facility] : 1950 Age/S: 68 / F [address] [facility] Unit #: [id number] Loc: [place] [address] Phys: Theodore Michele MD Acct: [id number] Dis Date: Status: REG ER PHONE #: [phone] Exam Date: 09/02/2019 16 45 FAX #: [phone] Reason: abd pain, suprapubic cat h placement Report Has Been Amended EXAMS: CPT CODE: [id number] CT ABD PELVIS W/O CONT 39963 <Continued> Spleen: Grossly normal Adrenal glands: Grossly [...] Signed R eport (CONTINUED) Name: SADA KARIMI [facility] : 1950 Age/S: 68 / F [address] Unit #: [id number] Loc: [place] [address] Phys: Theodore Michele MD Acct: [id number] Dis Date: Status: REG ER PHONE #: [phone] Exam Date: 09/02/20191644 FAX #: [phone] Reason: abd pain, suprapubic cath placement Report Has Been Amended EXAMS: CPT CODE: [id number] C T ABD PELVIS W/O CONT 20725 <Continued> CC: Theodore Michele MD Technologist:Holley Liao RT(R),CT; CTDI: DLP: Trnscb Date/Time: 09/02/2019 (1751) t.SDR.RR31 Orig Print D/T: S: 09/02/2019 (1754) PAGE 3 Signed Report - CT ABD PELVIS W/O [id number] 17:52:00 Name: SADA KARIMI [facility] : 1950 Age/S: 68 / F [address] [facility] Unit #: [id number] Loc: [place] [address] Phys: Flavio Michele MD Acct: [id number] Di s Date: Status: REG ER PHONE #: [phone] Exam Date: 09/02/2019 164 FAX #: [phone] Reason: abd pain, suprapubic cath placement EXAMS: CPT CODE: [id number] CT ABD PELVIS W/O CONT 44925 REASON FOR EXAM: abd pain , suprapubic [...] Signed Report (CONTINUE D) Name: SADA KARIMI [facility] : 1950 Age/S: 68 / F [address] [facility] Unit #: [id number] Loc: [place] [address] Phys: Theodore Michele MD Acct: [id number] Dis Date: Status: REG ER PHONE # : [phone] Exam Date: 09/02/2019 1645 FAX #: [phone] Reason: abd pain, suprapubic cath placement EXAMS: CPT CODE: [id number] CT ABD PEL VIS W/O CONT 59314 <Continued> Abdominal vascular structures: Atherosclerotic disease is [...] (175) t.SDR.RR31 Orig Print D/T: S: 09/02/2019 (2913) PAGE 2 Signed Report BASIC METABOLIC PANEL [...] CA) 8.8 mg/dL 8.5-10.1 N HEPATIC FUNCTION [id number] 17:01:00* Test Item Value Reference Range Interpretation [...] reference range due to change in reagent. [id number] 17:01:00* Test Item Value Reference Range Interpretation Comments LIPASE (test code = LIP) 116 U/L 73.0-393.0 N BASIC METABOLIC [id number] 16:53:00* Test Item Value Reference Range Interpretation [...] code = CA) mg/dL 8.5-10.1 HEPATIC FUNCTION [id number] 16:53:00* Test Item Value Reference Range Interpretation [...] TOTAL (test code = ALKP) IUnit/L 45-117 [id number] 16:53:00* Test Item Value Reference Range Interpretation Comments LIPASE (test code = LIP) U/L 73.0-393.0 CBC W/O [id number] 16:44:00* Test Item Value Reference Range Interpretation [...] 9.7 fL 6.7-11.0 N - XR SWLW FUN W/C [id number] 11:41:00 FAX: Jackelin Parham MD [phone] [place]: B St: DIS FAX: Betty Mejia [phone] Name: SADA KARIMI [facility] : 1950 Age/S: 68/F [address] Unit #: [id number] Loc: V.[address] [place] [address] Phys: Betty Mejia NP Acct: [id number] Dis Date: [id number] Status: DIS IN PHONE #: [phone] Exam Date: 07/01/2019 1333 FAX #: [phone] Reason: EVALULATION FOR THIN LIQUID EXAMS: CPT CODE: [id number] XR SWLW FUNC W/C V 49517 EXAM: Modified barium swallow; INFORMATION: Dyspha dalia; IMPRESSION: There was delayed triggering of pharyng eal swallow and laryngeal penetration was seen when using thin liquids. No evidence of aspiration. Fluoroscopy Time: 134 sec CAK : 9.83 mGy at 1141 Reported and signed by: Gregorio Hartman M.D. CC: Jackelin Kurtz MD; Betty Mejia NP chnologist: Wanda SOSA(R) Trnscrd Date/ Time/By: 07/02/2019 (1141) : By: ShirleyGRW PAGE 1 Signed Report [id number] 16:22:00* Test Item Value Reference Range Interpretation Comments GLUBED (test code = GLUBED) 72 mg/dL 74-106 L Performed by certified charging board operator at [facility] [id number] 11:41:00* Test Item Value Reference Range Interpretation Comments GLUBED (test code = GLUBED) 96 mg/dL 74-106 N Performed by certified charging board operator at [facility] [id number] 08:24:00* Test Item Value Reference Range Interpretation Comments GLUBED (test code = GLUBED) 68 mg/dL 74-106 L Performed by certified charging board operator at [facility] [id number] 20:31:00* Test Item Value Reference Range Interpretation Comments GLUBED (test code = GLUBED) 81 mg/dL 74-106 N Performed by certified charging board operator at [facility] [id number] 15:45:00* Test Item Value Reference Range Interpretation Comments GLUBED (test code = GLUBED) 105 mg/dL 74-106 N Performed by certified charging board operator at [facility] [id number] 11:46:00* Test Item Value Reference Range Interpretation Comments GLUBED (test code = GLUBED) 120 mg/dL 74-106 H Performed by certified charging board operator at [facility] [id number] 08:01:00* Test Item Value Reference Range Interpretation Comments GLUBED (test code = GLUBED) 80 mg/dL 74-106 N Performed by certified charging board operator at [facility]) BASIC METABOLIC [id number] 05:51:00* Test Item Value Reference Range Interpretation [...] CA) 7.7 mg/dL 8.5-10.1 L BASIC METABOLIC [id number] 05:51:00* Test Item Value Reference Range Interpretation [...] CA) 7.7 mg/dL 8.5-10.1 L CBC W/AUTO [id number] 05:31:00* Test Item Value Reference Range Interpretation [...] DIFF REQUIRED (test code = MDIFF) NO [id number] 21:07:00* Test Item Value Reference Range Interpretation Comments GLUBED (test code = GLUBED) 81 mg/dL 74-106 N Performed by certified charging board operator at [facility])Notified Nurse~ [id number] 16:38:00* Test Item Value Reference Range Interpretation Comments GLUBED (test code = GLUBED) 78 mg/dL 74-106 N Performed by certified charging board operator at [facility]) BASIC METABOLIC [id number] 13:24:00* Test Item Value Reference Range Interpretation Comments SODIUM (test code = NA) 145 mmol/L 136-145 N POTASSIUM (test code = K) 2.9 mmol/L 3.5-5.1 L Re sults called to [id number] by V.LAB.RYAN 06/29/19 1323Critical results verified and read back [...] code = CA) 7.9 mg/dL 8.5-10.1 L [id number] 12:56:00* Test Item Value Reference Range Interpretation Comments GLUBED (test code = GLUBED) 124 mg/dL 74-106 H Performed by certified charging board operator at [facility]) CBC W/AUTO [id number] 12:32:00* Test Item Value Reference Range Interpretation [...] code = NRBC#) 0.00 K/mm3 0.0-0.1 N [id number] 08:10:00* Test Item Value Reference Range Interpretation Comments GLUBED (test code = GLUBED) 99 mg/dL 74-106 N Performed by certified charging board operator at [facility] [id number] 20:56:00* Test Item Value Reference Range Interpretation Comments GLUBED (test code = GLUBED) 95 mg/dL 74-106 N Performed by certified charging board operator at [facility])Notified Nurse~ [id number] 18:55:00* Test Item Value Reference Range Interpretation Comments GLUBED (test code = GLUBED) 112 mg/dL 74-106 H Performed by certified charging board operator at [facility]) [id number] 12:44:00* Test Item Value Reference Range Interpretation Comments GLUBED (test code = GLUBED) 136 mg/dL 74-106 H Performed by certified charging board operator at [facility]) BASIC METABOLIC [id number] 11:35:00* Test Item Value Reference Range Interpretation [...] code = CA) 7.6 mg/dL 8.5-10.1 L [id number] 08:28:00* Test Item Value Reference Range Interpretation Comments GLUBED (test code = GLUBED) 118 mg/dL 74-106 H Performed by certified charging board operator at [facility] CBC W/MANUAL [id number] 08:03:00* Test Item Value Reference Range Interpretation [...] (test code = PLTMORPH) NORMAL CBC W/MANUAL [id number] 05:03:00* Test Item Value Reference Range Interpretation [...] MORPHOLOGY (test code = PLTMORPH) CBC W/MANUAL [id number] 05:03:00* Test Item Value Reference Range Interpretation [...] MORPHOLOGY (test code = PLTMORPH) CBC W/MANUAL [id number] 05:03:00* Test Item Value Reference Range Interpretation [...] MORPHOLOGY (test code = PLTMORPH) CBC W/MANUAL [id number] 05:02:00* Test Item Value Reference Range Interpretation [...] MORPHOLOGY (test code = PLTMORPH) CBC W/MANUAL [id number] 05:02:00* Test Item Value Reference Range Interpretation [...] PLTEST) PLATELET MORPHOLOGY (test code = PLTMORPH) [id number] 16:09:00* Test Item Value Reference Range Interpretation Comments GLUBED (test code = GLUBED) 111 mg/dL 74-106 H Performed by certified charging board operator at [facility])Notified Nurse~ [id number] 12:16:00* Test Item Value Reference Range Interpretation Comments GLUBED (test code = GLUBED) 61 mg/dL 74-106 L Performed by certified charging board operator at [facility] BASIC METABOLIC [id number] 11:47:00* Test Item Value Reference Range Interpretation [...] 7.8 mg/dL 8.5-10.1 L TSH REFLEX TO [id number] 11:47:00* Test Item Value Reference Range Interpretation Comments TSH REFLEX TO FT4 (test code = TSHREFLEX) 2.7 0.4-5.5 N BASIC METABOLIC [id number] 11:37:00* Test Item Value Reference Range Interpretation [...] = CA) mg/dL 8.5-10.1 TSH REFLEX TO [id number] 11:37:00* Test Item Value Reference Range Interpretation Comments TSH REFLEX TO FT4 (test code = TSHREFLEX) 0.4-5.5 CBC W/MANUAL [id number] 09:44:00* Test Item Value Reference Range Interpretation [...] code = IMMAT) 0 % 0-0 N [id number] 09:07:00* Test Item Value Reference Range Interpretation Comments GLUBED (test code = GLUBED) 63 mg/dL 74-106 L Performed by certified charging board operator at [facility] (Formerly [facility]) CBC W/MANUAL [id number] 08:46:00* Test Item Value Reference Range Interpretation [...] PLTEST) PLATELET MORPHOLOGY (test code = PLTMORPH) [id number] 08:46:00* Test Item Value Reference Range Interpretation Comments GLYCOSYLATED HEMOGLOBIN (HA1C) (test code = GLYHGB) 5.0 % HbA1 4. 8-6.0 N ESTIMATED AVERAGE GLUCOSE (test code = EAG) 97 MG/DL CBC W/MANUAL [id number] 08:46:00* Test Item Value Reference Range Interpretation [...] MORPHOLOGY (test code = PLTMORPH) CBC W/MANUAL [id number] 08:46:00* Test Item Value Reference Range Interpretation [...] MORPHOLOGY (test code = PLTMORPH) CBC W/MANUAL [id number] 08:46:00* Test Item Value Reference Range Interpretation [...] MORPHOLOGY (test code = PLTMORPH) CBC W/MANUAL [id number] 08:46:00* Test Item Value Reference Range Interpretation [...] PLATELET MORPHOLOGY (test code = PLTMORPH) URINALYSIS [id number] 03:08:00* Test Item Value Reference Range Interpretation [...] FEW #/LPF FEW Urine Source? Clean CatchPROTHROMBIN [id number] 22:45:00* Test Item Value Reference Range Interpretation [...] V.LAB.06/26/191935 PATIENT O N ANTICOAGULANTS? NTHROMBOPLASTIN TIME [id number] 22:45:00* Test Item Value Reference Range Interpretation Comments THROMBOPLASTIN TIME PARTIAL (test code = PTT) 30.4 seconds 25.0-36. 5 N HEMOLYZED, REDRAW REQUESTED FROM JET THEODORE V.LAB.06/26/19 PATIENT O N ANTICOAGULANTS? NCBC W/MANUAL [id number] 22:12:00* Test Item Value Reference Range Interpretation [...] code = IMMAT) 0 % 0-0 N [id number] 20:05:00* Test Item Value Reference Range Interpretation Comments MAGNESIUM (test code = MAG) 2.2 mg/dL 1.8-2.4 N B-TYPE NATRIURETIC [id number] 20:05:00* Test Item Value Reference Range Interpretation Comments B-TYPE NATRIURETIC PEPTIDE (test code = BNP) 144.16 pgram/mL 0-100 H LACTIC [id number] 19:27:00* Test Item Value Reference Range Interpretation Comments LACTIC ACID (test code = LACT) 1.0 mmol/L 0.4-1.9 N BASIC METABOLIC [id number] 19:26:00* Test Item Value Reference Range Interpretation [...] CA) 7.7 mg/dL 8.5-10.1 L HEPATIC FUNCTION [id number] 19:26:00* Test Item Value Reference Range Interpretation [...] reference range due to change in reagent. [id number] 19:26:00* Test Item Value Reference Range Interpretation Comments TROPONIN-I (test code = TROPI) <0.015 ng/mL 0-0.045 N CBC W/MANUAL [id number] 19:25:00* Test Item Value Reference Range Interpretation [...] MORPHOLOGY (test code = PLTMORPH) CBC W/MANUAL [id number] 19:25:00* Test Item Value Reference Range Interpretation [...] MORPHOLOGY (test code = PLTMORPH) CBC W/MANUAL [id number] 19:25:00* Test Item Value Reference Range Interpretation [...] MORPHOLOGY (test code = PLTMORPH) CBC W/MANUAL [id number] 19:25:00* Test Item Value Reference Range Interpretation [...] MORPHOLOGY (test code = PLTMORPH) CBC W/MANUAL [id number] 19:25:00* Test Item Value Reference Range Interpretation [...] MORPHOLOGY (test code = PLTMORPH) BASIC METABOLIC [id number] 19:17:00* Test Item Value Reference Range Interpretation [...] code = CA) mg/dL 8.5-10.1 HEPATIC FUNCTION [id number] 19:17:00* Test Item Value Reference Range Interpretation [...] TOTAL (test code = ALKP) IUnit/L 45-117 [id number] 19:17:00* Test Item Value Reference Range Interpretation Comments TROPONIN-I (test code = TROPI) ng/mL 0-0.045 POC LACTIC [id number] 18:59:00* Test Item Value Reference Range Interpretation Comments POC LACTIC ACID (test code = POCLAC) 1.19 MMOL/L 0.4-2.2 N - XR CHEST 1 [id number] 18:58:00 FAX: Ashley Denis [phone] [place]: St: PRE Name: Rose Mary RUEDASADA SHERIDAN [facility] : [birth year] Age/S: 68/F [address] [facility] Unit #: [id number] Loc: [place] [address] Phys: Ashley Atkinson Acct: [id number] Dis Date: Status: PRE ER PHONE #: [phone] Exam Date: 06/26/2019 1850 FAX #: [phone] Reason: CODE SEPSIS EXAMS: CPT CODE: [id number] XR CHEST 1 V 67272 REASON FOR EXAM: CODE SEPS IS EXAM ORDER DATE: 06/26/2019 6:34 PM Ordering M.DZakiya: Ashley Atkinson MD PROCEDURE: [...] By: [email or web address] Orig Print D/T: S: 06/26/2019 (1900) PAGE 1 Signed Report - CT ABD PELVIS [id number] 02:44:00 Name: SADA KARIMI [facility] : 1950 Age/S: 68 / F [address] [facility] Unit #: [id number] Loc: [place] [address] Phys: Carla Hunt MD Acct: [id number] Dis Date: Status: REG ER PHONE #: [phone] Exam Date: 05/05/2019 021 FAX #: [phone] Reason: ABD PAIN EXAMS: CPT CODE: [id number] CT ABD PELVIS W/CONT 64168 EXAM: - CT ABD PELVIS W/CONT HISTORY: [...] 1 Signed Report (CONTINUED) Name: SADA KARIMI [facility] : 1950 Age/S: 68 / F [address] [facility] Unit #: [id number] Loc: [place] [address] Phys: Carla Hunt MD Acct: [id number] Dis Date: Status: REG ER PHONE #: [phone] Exam Date: 05/05/2019214 FAX #: [phone] Reason: ABD PAIN EXAMS: CPT CODE: [id number] CT ABD PELVIS W/CONT 40650 < Continued> at 0244 Reported and signed by: Peyman Pereira MD CC: Carla Hunt MD Technologist:ISABELLE JACOBO CTDI: DLP: Trnscb Date/Time: 05/05/2019 (024) [email or web address] Orig Print D/T: S: 05/05/2019 (024) PAGE 2 Signed Report CBC W/AUTO [id number] 22:51:00* Test Item Value Reference Range Interpretation [...] (test code = MDIFF) NO COMPREHENSIVE METABOLIC [id number] 22:44:00* Test Item Value Reference Range Interpretation [...] due to change in reagent. COMPREHENSIVE METABOLIC [id number] 22:37:00* Test Item Value Reference Range Interpretation [...] (test code = ALKP) IUnit/L 45-117 URINALYSIS [id number] 19:29:00* Test Item Value Reference Range Interpretation [...]
--- NOTE | 2020-08-07 18:03 | Emergency Department Note ---
History of Present Illnes History of Present Illness Chief Complaint: Genitourinary History of Present Illness This is a 69 year old female [place]IENT [place] GRIGSBY FOR EVALUATION OF MDRO URINARY TRACT INFECTION FROM SUPRAPUBIC CATH AND CONFUSION/AMS. PATIENT ALERT AND ORIENTED X 2, APPEARS IN NO DISTRESS, RESP EVEN AND NONLABORED, DENIES PAIN. UA CULTURE GROWING PSEUDOMONAS AND PROVIDENCIA (SENSITIVITIES ON CHART - BOTH SENS TO GENTAMICIN) Historian: Patient, Furnace Converter/EMS Arrival Mode: Acadian History limited by: condition of the patient News Clipping Cutter Required: No Onset (how long ago): day(s) (3) Radiation: Reports non-radiation Severity: moderate Onset quality: gradual Duration (how long): day(s) Timing of current episode: intermittent Chronicity: new Context: Denies recent illness Relieving factors: none Exacerbating factors: none Associated symptoms: Reports confusion Past Medical/Family History Physician Review I have reviewed the patient's past medical and family history. Any updates have been documented here. Past Medical History Recent Fever: No Clinical Suspicion of Infectio: Yes New/Unexplained Change in Ment: No Past Medical History: Hypertension, CHF, UTI's, Hyperlipedemia Other Medical History: DYSPHAGIA, AMS UNSPECIFIED; CONSTIPATION;HIGH CHOLESTEROL ; ANEMIA DEMENTIA Past Surgical History: Cholecysctectomy Social History Smoking Cessation: Unknown if ever smoked Counseling Performed: No Alcohol Use: None Any Illegal Drug Use: No TB Exposure/Symptoms: No Physically hurt or threatened: No Family History Family history of heart diseas: No Other Last Tetanus: UNKNOWN Any Pre-Existing Lines (PICC,: No Review of Systems ROS Narrative Unable to obtain ROS: altered mental status Review of Systems Constitutional: Reports no symptoms EENTM: Reports no symptoms Cardiovascular: Reports no symptoms Respiratory: Reports no symptoms Gastrointestinal: Reports no symptoms Genitourinary: Reports no symptoms Musculoskeletal: Reports no symptoms Integumentary: Reports no symptoms Neurological: Reports as per HPI Psychological: Reports no symptoms Endocrine: Reports no symptoms Hematological/Lymphatic: Reports no symptoms Physical Exam Related Data Allergies: Coded Allergies: No Known Allergies (Unverified , 08/07/20) Triage Vital Signs Vital Signs Date Time Temp Pulse Resp B/P (MAP) Pulse Ox O2 Delivery O2 Flow Rate FiO2 08/07/20 17:17 98.5 61 16 131/75 99 Room Air Vital signs reviewed: Yes Physical Exam CONSTITUTIONAL Constitutional: Present well-developed, Present well-nourished HENT HENT: Present normocephalic, Present atraumatic, Present oropharynx clear/moist, Present nose normal HENT L/R: Present left ext ear normal, Present right ext ear normal EYES Eyes: Reports PERRL, Reports conjunctivae normal NECK Neck: Present ROM normal PULMONARY Pulmonary: Present effort normal, Present breath sounds normal CARDIOVASCULAR Cardiovascular: Present regular rhythm, Present heart sounds normal, Present capillary refill normal, Present normal rate GASTROINTESTINAL Abdominal: Present soft, Present nontender, Present bowel sounds normal, Present other (SUPRAPUBIC CATH PRESENT); Absent tender GENITOURINARY Genitourinary: Present exam deferred SKIN Skin: Present warm, Present dry MUSCULOSKELETAL Musculoskeletal: Present ROM normal NEUROLOGICAL Neurological: Present alert, Present no gross motor or sensory deficits, Present other (ORIENTED TO NAME AND PLACE, NOT TIME) PSYCHOLOGICAL Psychological: Present mood/affect normal, Present judgement normal Results Laboratory Lab results reviewed: Yes Imaging Imaging Comments CT AND CXR RESULTS [facility], DR BROWN Assessment & Plan Medical Decision Making MDM AMS WITH UTI - CHECK CBC, CHEM'S, UA/CX, BLOOD CX'S, CT BRAIN - R/O LEUKOCYTOSIS, RENAL INSUFF, UTI, CEREBRAL HEMORRHAGE/CVA Reassessment Reassessment SPOKE WITH DR SEB WATT PT ON GENTAMICIN BUT WANTS DR BOWEN CONSULTED, SPOKE WITH DR JESSI WATT 200 MG IV GENTAMICIN X 1 DOSE AND HE WILL SEE PT, SPOKE WITH DR AWAD FOR ADMISSION. REPORT TO [facility] DR STEPHANIE THEODORE MD TO F/U STUDIES INCLUDING CT BRAIN Assessment & Plan Final Impression: (1) UTI (urinary tract infection) (2) Altered mental status Depart Disposition: ADMITTED Last Vital Signs Date Time Temp Pulse Resp B/P (MAP) Pulse Ox O2 Delivery O2 Flow Rate FiO2 08/07/20 17:17 98.5 61 16 131/75 99 Room Air Home Meds Reported Medications [Bas[place] Carolyn] No Conflict Check, 1 PUMP TOP DAILY 04/12/20 Melatonin (MELATONIN) 3 Mg Tablet, 5 MG PO PRN, TAB 04/12/20 Acetaminophen (ACETAMINOPHEN) 650 Mg Tablet, 650 MG PO PRN 04/12/20 Ondansetron Hcl (ZOFRAN) 8 Mg Tablet, 4 MG PO PRN 04/12/20 Dabigatran Etexilate Mesylate (PRADAXA) 75 Mg Capsule, 1 CAP PO BID 04/10/20 Ferrous Sulfate (FERROUS SULFATE) 325 Mg Tablet, 1 TAB PO BID 04/10/20 Metoprolol Tartrate (METOPROLOL TARTRATE) 50 Mg Tablet, 75 MG PO Q12HR, TAB 04/10/20 Midodrine Hcl (MIDODRINE HCL) 5 Mg Tablet, 5 MG PO BID, TAB HOLD IF SBP > 130 04/10/20 Levothyroxine Sodium (LEVOTHYROXINE SODIUM) 75 Mcg Tablet, 75 MCG PO DAILY, #30 TAB 04/10/20 Atorvastatin Calcium (ATORVASTATIN CALCIUM) 40 Mg Tablet, 40 MG PO HS, #30 TAB 04/10/20 Lactulose (LACTULOSE) 20 Gm/30 Ml Solution, 30 ML PO DAILY, EACH 04/10/20 Docusate Sodium (DOCUSATE SODIUM) 100 Mg Capsule, 100 MG PO DAILY, CAP 04/10/20 Aspirin (ASPIRIN) 81 Mg Tab.chew, 1 TAB PO DAILY 04/10/20 Medications in the ED Gentamicin Sulfate 100 mg/ Sodium Chloride 102.5 ml @ 102.5 mls/ hr NOW ONCE IV ; Start 08/07/20 at 17:45; Stop 08/07/20 at 18:44; Status UNV Ondansetron HCl 4 mg Q4H PRN IV NAUSEA AND VOMITING; Start 08/07/20 at 17:45; Stop 09/06/20 at 17:44 Sodium Chloride 1,000 ml @ 100 mls/hr Q10H IV ; Start 08/07/20 at 17:45; Stop 08/08/20 at 03:44 KENY PEÑA MD Aug 07, 2020 18:03
[2020-08-07 18:09] LABS: BASOPHILS # (AUTO) 0.1 (0.0-0.1); BASOPHILS % 0.9 % (0.0-1.0); EOSINOPHILS # (AUTO) 0.2 (0.0-0.4); EOSINOPHILS % 3.4 % (0.0-6.0); HEMATOCRIT 44.2 % (34.2-44.1); HEMOGLOBIN 13.1 g/dL (12.0-16.0); LYMPHOCYTES # (AUTO) 0.9 (1.0-3.2); LYMPHOCYTES % 15.4 % (18.0-39.1); MEAN CORPUSCULAR HEMOGLOBIN 27.5 pg (28-32); MEAN CORPUSCULAR HGB CONC 29.6 g/dL (31-35); MEAN CORPUSCULAR VOLUME 92.9 fL (81-99); MONOCYTES # (AUTO) 0.3 (0.2-0.8); MONOCYTES % 4.5 % (4.4-11.3); NEUTROPHILS # (AUTO) 4.1 (2.1-6.9); NEUTROPHILS % 74.9 % (38.7-80.0); PLATELET COUNT 179 x10e3/uL (140-360); RED BLOOD COUNT 4.76 x10e6/uL (3.6-5.1); RED CELL DISTRIBUTION WIDTH 15.3 % (11.7-14.4)
--- NOTE | 2020-08-07 18:13 | Diagnostic Imaging Report ---
EXAMINATION: CHEST SINGLE (PORTABLE) INDICATION: Altered mental status COMPARISON: Chest x-ray on 04/10/2020 FINDINGS: TUBES and LINES: None. LUNGS: Normal lung volumes. Lungs are clear. No consolidations. PLEURA: No pleural effusion or pneumothorax. HEART AND MEDIASTINUM: The cardiomediastinal silhouette is unremarkable. BONES AND SOFT TISSUES: No acute osseous lesion. Soft tissues are unremarkable. UPPER ABDOMEN: No free air under the diaphragm. Cholecystectomy clips. IMPRESSION: No acute thoracic radiographic abnormality. Signed by: Norman Cummings MD on 08/07/2020 6:10 PM
--- NOTE | 2020-08-07 18:15 | Diagnostic Imaging Report ---
EXAMINATION: Head CT HISTORY: 69-year-old female with altered mental status, confusion for the last few days COMPARISON: None. TECHNIQUE: Helical axial images of the head were obtained. Reformatted coronal and sagittal images from the axial data. Dose modulation, iterative reconstruction, and/or weight based adjustment of the mA/kV was utilized to reduce the radiation dose to as low as reasonably achievable. Image quality: Motion artifact limits evaluation of the vertex region. FINDINGS: Parenchyma: 1. No abnormal densities. 2. No mass or hemorrhage. No CT evidence of acute territorial vascular insult. Extra-axial spaces:No abnormal density. No extra-axial fluid collections Brain volume: Mild generalized brain volume loss Ventricles: No hydrocephalus or displacement. Arteries: No density suggestive of thrombus. Dural sinuses: No abnormal density. Foramen magnum: No mass, Chiari malformation, or basilar invagination. Sella: Enlarged, partially empty, mostly CSF field Paranasal/mastoid sinuses: Hypo pneumatization and sclerosis of the mastoid air cells, may represent sequela from remote inflammatory process. Skull/Scalp: No lytic or blastic lesions. No fractures. IMPRESSION: 1. No acute intracranial abnormalities. 2. Moderate generalized brain volume loss. Signed by: Dr. Haven Holly M.D. on 08/07/2020 6:11 PM
[2020-08-07 18:58] LABS: INR 1.07; PROTHROMBIN TIME 14.4 seconds (11.9-14.5)
[2020-08-07 18:59] LABS: PARTIAL THROMBOPLASTIN TIME 42.3 seconds (23.8-35.5)
[2020-08-07] MEDS ORDERED: GENTAMICIN SULFATE 200 MG in SODIUM CHLORIDE 0.9% 100 ML 100 ML IV ONE (19:00)
[2020-08-07 19:08] LABS: ALBUMIN 2.4 g/dL (3.5-5.0); ALBUMIN/GLOBULIN RATIO 0.6 (0.8-2.0); ANION GAP 17.7 mmol/L (8-16); CALCIUM 7.9 mg/dL (8.4-10.2); CREATININE, SERUM 1.4 mg/dL (0.57-1.11); MAGNESIUM 2.2 MG/DL (1.3-2.1); POTASSIUM 3.7 mmol/L (3.5-5.1)
[2020-08-07 19:15] LABS: CREATINE KINASE MB 0.7 ng/mL (0-5.0)
[2020-08-07 19:31] LABS: CLARITY,URINE CLOUDY (CLEAR); COLOR,URINE YELLOW (YELLOW); LEUKOCYTE ESTERASE ,URINE LARGE (NEGATIVE); NITRITE,URINE NEGATIVE (NEGATIVE); PROTEIN,URINE DIPSTICK 3+ (NEGATIVE)
[2020-08-07 19:32] LABS: BILIRUBIN,URINE NEGATIVE (NEGATIVE); KETONES,URINE NEGATIVE (NEGATIVE); URINE UROBILINOGEN 0.2 mg/dL (0.2 - 1)
[2020-08-07 19:36] LABS: BACTERIA,URINE MODERATE /HPF; EPITHELIAL CELLS,URINE FEW /LPF; MUCUS,URINE MODERATE (RARE); RBC,URINE >50 /HPF (0-5); WBC,URINE (MAN) >50 /HPF (0-5)
[2020-08-07 20:26] VITALS: BP 114/52
[2020-08-07 20:27] VITALS: BP 114/52
[2020-08-07 20:36] VITALS: BP 114/52
--- NOTE | 2020-08-07 20:40 | NUR ---
patient is a new admit that arrived via stretcher. patient is asleep. patient has been transferred into the bed. bed is in the lowest position and call light is within reach. will continue to monitor patient.
[2020-08-07 21:29] VITALS: BP 114/52
--- NOTE | 2020-08-07 23:59 | NUR ---
infectious disease consultationhis the patient was seen and examined chart reviewed the events noted Discussed with medical team discussed the ER physician The patient was referred to us with UTI multidrug-resistant is a 69 year old female PATIENT SENT [place] BY [place] GRIGSBY FOR EVALUATION OF MDRO URINARY TRACT INFECTION FROM SUPRAPUBIC CATH AND CONFUSION/AMS. PATIENT ALERT AND ORIENTED X 2, APPEARS IN NO DISTRESS, RESP EVEN AND NONLABORED, DENIES PAIN. UA CULTURE GROWING PSEUDOMONAS AND PROVIDENCIA (SENSITIVITIES ON CHART - BOTH SENS TO GENTAMICIN) Historian: Patient, Paedodontist/EMS Arrival Mode: Acadian History limited by: condition of the patient Election Watcher Required: No Onset (how long ago): day(s) (3) Radiation: Reports non-radiation Severity: moderate Onset quality: gradual Duration (how long): day(s) Timing of current episode: intermittentgent Chronicity: new Context: Denies recent illness Relieving factors: none Exacerbating factors: none Associated symptoms: Reports confusion her past medical history as above past surgical history as above allergies NKDA social history there is no smoking drug abuse alcohol abuse family history otherwise noncontributory Review of systems could not be obtained Her physical examination is currently alert oriented her vitals stable afebrile HEENT normocephalic Neck supple Chest few rhonchi bilateral Heart S1-S2 abdomen soft points are present extremities no edema she has suprapubic catheter UTI/cystitis with multidrug-resistant will give one dose of gent rechechk in am WELLINGTON/ iv f recheck cultures
[2020-08-08] VITALS (8 sets, daily range): BP systolic 119–148; BP diastolic 48–88
[2020-08-08 05:59] LABS: BASOPHILS % 0.8 % (0.0-1.0); EOSINOPHILS # (AUTO) 0.2 (0.0-0.4); EOSINOPHILS % 4.5 % (0.0-6.0); HEMATOCRIT 39.7 % (34.2-44.1); HEMOGLOBIN 11.6 g/dL (12.0-16.0); LYMPHOCYTES # (AUTO) 1.1 (1.0-3.2); LYMPHOCYTES % 22.9 % (18.0-39.1); MEAN CORPUSCULAR HEMOGLOBIN 26.9 pg (28-32); MEAN CORPUSCULAR HGB CONC 29.2 g/dL (31-35); MEAN CORPUSCULAR VOLUME 92.1 fL (81-99); MONOCYTES # (AUTO) 0.3 (0.2-0.8); MONOCYTES % 5.3 % (4.4-11.3); NEUTROPHILS # (AUTO) 3.2 (2.1-6.9); NEUTROPHILS % 64.5 % (38.7-80.0); PLATELET COUNT 170 x10e3/uL (140-360); RED BLOOD COUNT 4.31 x10e6/uL (3.6-5.1); RED CELL DISTRIBUTION WIDTH 15.4 % (11.7-14.4)
[2020-08-08 06:50] LABS: ALBUMIN 2.1 g/dL (3.5-5.0); ALBUMIN/GLOBULIN RATIO 0.6 (0.8-2.0); ANION GAP 12.7 mmol/L (8-16); CALCIUM 7.5 mg/dL (8.4-10.2); CREATININE, SERUM 1.24 mg/dL (0.57-1.11); POTASSIUM 3.7 mmol/L (3.5-5.1)
--- NOTE | 2020-08-08 07:00 | NUR ---
RCD PT AT BED PT IS ALERT AND ORIENTED RESTING ON BED IV PATENT BY SALINE FLUSH PT ON SPC BED LOW AND LOCKED CALL LIGHT IN REACH
[2020-08-08] MEDS ORDERED: D5.45%NS/KCL 20MEQ 1,000 ML IV SCH (10:30)
[2020-08-08] MEDS ORDERED: HYDRALAZINE HCL 20 MG/ML VIAL IV PRN (10:30)
[2020-08-08] MEDS ORDERED: MELATONIN 3 MG TAB PO PRN (10:30)
[2020-08-08] MEDS ORDERED: NON-FORMULARY MEDICATION (Acetaminophen 650 MG) PO PRN (10:30)
[2020-08-08] MEDS ORDERED: ONDANSETRON HCL INJ 2MG/ML 2ML 2 MG/ML VIAL IV PRN (10:30)
[2020-08-08 11:40] LABS: PLATELET ESTIMATE ADEQUATE; PLATELET MORPHOLOGY COMMENT NORMAL; RBC MORPHOLOGY COMMENT NORMAL
--- NOTE | 2020-08-08 11:44 | NUR ---
REPORT GIVEN TO BONNIE CLEVELAND
--- NOTE | 2020-08-08 11:50 | NUR ---
PT TRANSFERRED TO ROOM 200 IN SAFE CONDITION
--- NOTE | 2020-08-08 12:00 | NUR ---
PHONE REPORT RECEIVED FROM MED SURG 1. PATIENT RECEIVED RESTING IN BED IN NO ACUTE DISTRESS. PATIENT AAOX1. BED ALARM ON. I ASKED THE PATIENT TO STATE TODAY'S DATE/YEAR. PT REPLIED "MEDICAL INSURANCE". I ASKED THE PATIENT TO STATE THE NAME OF THE BATTERY REPAIRER AND THE PATIENT DID NOT REPLY. PATIENT STATES SHE IS HAVING A GOOD DAY SO FAR AND DENIED FURTHER NEEDS. ROOM CLOSE TO NURSING STATION. CALL LIGHT AND BELONGINGS PLACED NEARBY. WILL CONTINUE TO MONITOR.
--- NOTE | 2020-08-08 14:26 | NUR ---
WOUND CARE CONSULT 69 YO FEMALE HX OF AMS,UTI NAVYA 16 0N MODERATE PUP STATUS AND INTERVENTIONS ON VISCO MATTRESS LABS: WBC- 4.90 HGB- 11.6 GLUCOSE-69 SKIN ASSESSMENT COMPLETE PATIENT PRESENTS WITH STAGE 2 ULCERATION TO RIGHT GLUTEAL MEASURES 0.8 X 1CM X0.1CM RECOMMENDATIONS: NURSING TO CONTINUE TO MONITOR PATIENT AND KEEP SKIN CLEAN AND FREE FROM LOOSE STOOL OR IRRITATING MOISTURE AND CONTINUE TO FOLLOW MODERATE PUP INTERVENTIONS NURSING TO CONTINUE TO GET PATIENT OUT OF BED FOR MEALS AND MUCH TOLERATED NURSING TO CLEAN RIGHT GLUTE STAGE 2 ULCERATION WITH NORMAL SALINE DAILY AND APPLY COLLAGEN TO WOUND BASE AND COVER WITH ALLEVYN FOAM DRESSING Addendum: 08/08/20 at 1431 by Everett Galvan RN Amended: Links added.
[2020-08-08] MEDS ORDERED: FAMOTIDINE 20 MG TAB PO SCH (16:30)
--- NOTE | 2020-08-08 16:35 | NUR ---
SUPRAPUBIC CATHETER CHANGED PER DR. GRIGSBY. CATH FOUND DRAINING CLOUDY, LIGHT YELLOW URINE. SAMPLE OBTAINED FOR URINE CULTURE. SPECIMEN WALKED TO THE LAB. MERREM IV STARTED PER MD ORDER.
[2020-08-08] MEDS: MEROPENEM 500MG/ NS 50ML 50 ML IV SCH (16:42)
[2020-08-08] MEDS: FERROUS SULFATE 325 MG TAB PO SCH (16:43)
[2020-08-08] MEDS: MIDODRINE HCL 5 MG TABLET PO SCH (16:43)
--- NOTE | 2020-08-08 19:00 | NUR ---
Patient visited in room during nursing round. Patient alert and oriented x1 (self). Patient HOB elevated to 70 degrees at this time. On IVF (D5 1/2 NS with 20meqKCL at 50ml/hr). Pt appear in stable condition. Suprapubic catheter in place draining yellow urine. Bed alarm active. Call zhao within reach. Will monitor closely.
--- NOTE | 2020-08-08 19:42 | Progress Note ---
DATE: SUBJECTIVE: Ms. Nita Brunson is doing well. There is no new complaint. She is lying in bed comfortably. Her urine is showing gram-negative rods. Her blood culture is negative. Her white count 4.9, hemoglobin 11. Her sodium is 151, creatinine 1.24, which is down from 1.4. PHYSICAL EXAMINATION: GENERAL: She is currently alert. VITAL SIGNS: Stable, currently afebrile. HEENT: She is not icteric. NECK: Supple. CHEST: Crackles. HEART: S1 and S2. ABDOMEN: Soft. Bowel sounds present. EXTREMITIES: No edema. SKIN: No rash. IMPRESSION/PLAN: 1. Acute kidney injury, dehydration, sepsis on admission. 2. Urinary tract infection gram-negative bacilli. At the alf, it was multidrug resistant. We gave her one dose of gentamicin. Because of kidney function, we will put her on meropenem for the time being until I get the culture and sensitivity. Recheck CBC. Recheck Chem panel. Further recommendations to follow. MD ERIC West/MODL /[id number]
[2020-08-08] MEDS ORDERED: NON-FORMULARY MEDICATION (Atorvastatin Calcium 40 MG) PO SCH (21:00)
[2020-08-08] MEDS: ATORVASTATIN 40 MG TAB PO SCH (21:11)
[2020-08-08] MEDS: MELATONIN 5 MG TABLET PO SCH (21:11)
[2020-08-08] MEDS: METOPROLOL TARTRATE 50 MG TAB PO SCH (21:11)
[2020-08-09] VITALS (7 sets, daily range): BP systolic 100–123; BP diastolic 46–63
[2020-08-09] MEDS: MEROPENEM 500MG/ NS 50ML 50 ML IV SCH ×3 (00:24→17:13)
--- NOTE | 2020-08-09 06:45 | NUR ---
SBAR BEDSIDE REPORT RECEIVED FROM JOSE CLEVELAND. PATIENT FOUND RESTING IN BED IN NO ACUTE DISTRESS, EASY TO AROUSE. HOB ELEVATED AT 30 DEGREES. PATIENT AAOX1. PATIENT BED ALARM ON. IV PATENT AND CONTINUOUS IV INFUSING. CALL LIGHT AND BELONGINGS PLACED NEARBY. WILL CONTINUE TO MONITOR.
--- NOTE | 2020-08-09 06:46 | NUR ---
CONTINUOUS FLUIDS DISCONTINUED PER MD ORDER.
[2020-08-09] MEDS: MIDODRINE HCL 5 MG TABLET PO SCH ×2 (09:00→17:00)
[2020-08-09] MEDS: FERROUS SULFATE 325 MG TAB PO SCH ×2 (09:00→17:00)
[2020-08-09] MEDS: DOCUSATE SODIUM 100 MG CAP PO SCH (09:00)
[2020-08-09] MEDS: METOPROLOL TARTRATE 50 MG TAB PO SCH ×2 (09:00→21:00)
[2020-08-09] MEDS ORDERED: LEVOTHYROXINE SODIUM 75 MCG TAB PO SCH (09:00)
[2020-08-09 09:01] LABS: ALBUMIN 1.9 g/dL (3.5-5.0); ALBUMIN/GLOBULIN RATIO 0.5 (0.8-2.0); ANION GAP 13.6 mmol/L (8-16); CALCIUM 7.2 mg/dL (8.4-10.2); CHOL/HDL RATIO 2.7 (3.0-3.6); CREATININE, SERUM 1.06 mg/dL (0.57-1.11); POTASSIUM 4.6 mmol/L (3.5-5.1)
[2020-08-09 10:39] LABS: THYROID STIMULATING HORMONE 0.543 uIU/mL (0.350-4.940)
[2020-08-09] MEDS: DEXTROSE 5%/0.45% SOD CHL 1,000 ML IV SCH (12:00)
[2020-08-09 14:30] LABS: EOSINOPHILS # (AUTO) 0.2 (0.0-0.4); EOSINOPHILS % 4.4 % (0.0-6.0); HEMATOCRIT 39.5 % (34.2-44.1); HEMOGLOBIN 11.5 g/dL (12.0-16.0); LYMPHOCYTES % 24.8 % (18.0-39.1); MEAN CORPUSCULAR HGB CONC 29.1 g/dL (31-35); MEAN CORPUSCULAR VOLUME 92.7 fL (81-99); MONOCYTES # (AUTO) 0.3 (0.2-0.8); MONOCYTES % 6.8 % (4.4-11.3); NEUTROPHILS # (AUTO) 2.5 (2.1-6.9); NEUTROPHILS % 61.1 % (38.7-80.0); PLATELET COUNT 160 x10e3/uL (140-360); RED BLOOD COUNT 4.26 x10e6/uL (3.6-5.1); RED CELL DISTRIBUTION WIDTH 15.6 % (11.7-14.4)
[2020-08-09 15:06] LABS: B-TYPE NATRIURETIC PEPTIDE2 155.2 pg/mL (0-100)
--- NOTE | 2020-08-09 16:40 | NUR ---
Nutrition Intervention Note RD Recommendation(s) for Physician: - Diet per MD/FRONT OFFICE ATTENDANT. - When diet advanced recommend Ensure Enlive BID and Ensure pudding TID for adequacy. - If intake remains poor or unable to advance diet, consider DHT placement and begin TF of Osmolite 1.2 at 20 ml/hr. Advance as tolerated to goal rate of 50 ml/hr with 2 packets/day Beneprotein (1490 kcal and 77 gm protein). - Water flushes and fluid management per MD. Plan of Care: RD following, monitoring for tolerance and adequacy. Diet, ONS, and TF rec's. Nutrition reason for involvement: COAL HANDLING SUPERVISOR consult, Stage II PU on admit RD Assessment 08/09: 69 YOF admitted from [place] for AMS, UTI, [place]LL[place], and dehydration. Pt seen today per COAL HANDLING SUPERVISOR consult for "poor nutrition, swallowing issues per FRONT OFFICE ATTENDANT, AMS related to UTI" and stage II PU on admit. Pt sleeping at time of admit, did not respond to greeting. Pt appears well nourished. Noted rec's for pureed diet texture with thin liquids, supervision with meals per current diet order even though pt is on CLD. Diet, ONS, and TF rec's provided pending pt diet progression and adequacy. Chart reviewed. Will continue to monitor. Principal Problems/Diagnoses: PMH: dementia, HTN, CAD, hypothyroidism GI: Last BM 08/08 Skin: sacral stage II PU Labs: 08/09: Na 148, K 4.6, BUN 21, Cr 1.06, Gluc 66, A1C 4.9, Mg 2.2 Meds: abx, lipitor, feosol, synthroid, pepcid, colace, zofran Ht: 63 in Wt: 190 lb BMI: 33.7 kg/m2 IBW: 115 lb Malnutrition Evaluation (08/09/20) The patient does not meet criteria for a specified degree of malnutrition at this time. Will re-evaluate at follow-up as appropriate. Energy intake: RICHARD Weight loss: none, no wt loss per prior admit in March 2020 Fat loss: none, ample skinfold thickness to arm Muscle loss: none, shoulder round, clavicle not visible Supporting Evidence: Fluid accumulation: none observed Functional Status: not assessed Nutrition Prescription (Diet Order): clear liquids Estimated Nutritional Needs: 7503-4175 calories/day (22-25 kcal/kg IBW) 78-105 g protein/day (1.5-2 g pro/kg IBW) Diet Adequacy: Not meeting calorie needs, Not meeting protein needs Diet Tolerance: tolerating po Diet Education Needs Assessment: Diet education not indicated at this time. Nutrition Care Level: moderate Nutrition Diagnosis: Inadequate energy and protein intake related to current medical conditions as evidenced by not meeting needs. Goal: Patient will meet 75-100% of estimated needs by follow up Progress: N/A Interventions: -texture, fluid modified diet, Commercial beverage, Commercial food, Composition, Collaboration with other providers Monitoring/Evaluation: -Total energy intake, Total protein intake, Formula/Solution, Modified diet, Liquid supplement, Weight change Signed: Elizabeth Schrader RD, LD, [facility]
[2020-08-09] MEDS: FAMOTIDINE 20 MG/2 ML VIAL IV SCH (17:13)
--- NOTE | 2020-08-09 18:09 | Progress Note ---
DATE: CONSULTING PHYSICIANS: 1. Dr. Mango Kohler with Infectious Disease. 2. Dr. Chad Du with Urology. SUBJECTIVE: The patient is lying supine in bed, in no apparent distress. Still with altered mental status from baseline, unable to communicate effectively. She has been on a clear liquid diet. OBJECTIVE: VITAL SIGNS: Temperature 97.4, pulse 51, blood pressure 123/50, respirations 18, and oxygen saturation 98% on room air. GENERAL: Supine, no apparent distress. Eyes closed, easily arousable, pale. LUNGS: Clear to auscultation. Respiratory pattern even and nonlabored. No supplemental oxygen. HEENT: EOMI. Dry mucous membranes. NECK: Supple. No JVD. CARDIOVASCULAR: Regular rate and rhythm. Bradycardia, D5 in half-normal saline, actively infusing at 50 mL an hour into a peripheral IV. ABDOMEN: Bowel sounds positive. Soft, nontender. Suprapubic catheter. EXTREMITIES: No pitting edema. No clubbing, cyanosis, or signs of DVT. Decreased range of motion bilateral lower extremities. Bilateral footdrop. NEUROLOGIC: Grunts, moans, response to pain, unable to participate with physical therapy. GCS 11, eye 3, verbal 4, motor 4. DIAGNOSTIC STUDIES: Telemetry, sinus bradycardia with PACs. LABORATORY DATA: WBCs 4.11, hemoglobin 11.5, hematocrit 39.5, platelets 160. Sodium 148, potassium 4.6, chloride 118, CO2 of 21, anion gap 13.6. BUN 17, creatinine 1.06, estimated GFR 51, glucose 66, hemoglobin A1c 4.9%, calcium 7.2, total bilirubin 0.4. AST 21, ALT 8, alkaline phosphatase 122. Ammonia level 69. B-type natriuretic peptide 155.2, total protein 6, albumin 1.9, triglycerides 88, cholesterol 82, LDL 34, HDL 30, TSH 0.543. Coronavirus PCR negative on 08/07. On 08/07 suprapubic urine culture preliminary shows gram-negative bacillus. Another suprapubic urine culture and sensitivity collected on 08/08, shows gram-negative bacillus, Streptococcus species. IMAGING: No new Radiology results. Preliminary echocardiogram done on 08/08, shows an estimated ejection fraction of 60%. ASSESSMENT AND PLAN: 1. Multidrug resistant urinary tract infection, POA. Await final culture and sensitivity results. Per documentation, the urine culture at [facility] showed Pseudomonas aeruginosa and Providencia stuartii. Continue Merrem. Infectious Disease following, appreciate recommendations. WBCs 4.9, afebrile. 2. Sepsis due to multidrug resistant urinary tract infection, POA, currently afebrile. Temperature 97.4. WBCs 4.9. Infectious Disease following. 3. Neurogenic bladder, suprapubic catheter in situ. There are plans by Urology to change suprapubic catheter. This hospitalization appreciate recommendations. 4. Metabolic encephalopathy/altered mental status from baseline, likely due to #1, #2, and #5. 5. The patient did answer couple of my questions, may be improving from this standpoint. Continue to monitor closely. 6. Acute kidney injury. BUN 17, creatinine 1.06, estimated GFR 51. Continue gentle hydration with IV fluids, D5 and half-normal saline at 50 mL an hour. Monitor renal labs. 7. Acute hypernatremia. Sodium level 148, it was 151 on admission, gradually improving. Monitor sodium level. 8. History of cerebrovascular accident with dysphagia, edentulous. Change clear liquid diet status to n.p.o. for now per Speech Therapy recommendations. Physical therapy and Speech Therapy to continue to follow. 9. Chronic hypotension. Continue midodrine 5 mg b.i.d. Monitor blood pressure. 10. Chronic atrial fibrillation, heart rate controlled currently per telemetry and sinus bradycardia with PACs. Continue to monitor telemetry. 11. Chronic diastolic congestive heart failure with ejection fraction about 60% per preliminary echo. Estimated ejection fraction 60%. Monitor lung sounds and any chest x-ray results. B-type natriuretic peptide was 155.2. Strict intake and output. 12. Hypothyroidism. Continue levothyroxine at home dose of 75 mcg IV daily. 13. Hyperlipidemia. Continue atorvastatin. N.p.o. except medications. Clinimix unavailable from pharmacy. 14. Prophylaxis. Pepcid. Inpatient billing code [id number]. Time spent, 35 minutes. Dictated by Addison Cook NP MD MEME CurtisP/MODL /[id number]
--- NOTE | 2020-08-09 19:00 | NUR ---
Patient visited in room during nursing round. Patient alert and oriented x2. Patient resting comfortably in bed at this time. On IVF (D5 1/2 NS at 50ml/hr). Pt currently placed diet on NPO except meds. Pt appear to be in stable condition. Suprapubic catheter in place draining yellow cloudy urine. Bed alarm active. Call zhao within reach. Will monitor closely.
[2020-08-09] MEDS: MELATONIN 5 MG TABLET PO SCH (21:00)
[2020-08-09] MEDS: ATORVASTATIN 40 MG TAB PO SCH (21:50)
--- NOTE | 2020-08-09 23:37 | NUR ---
infectious disease progress note the patient's exam and chart reviewed there is no new problems. Ms. Nita Brunson is doing well. There is no new complaint. She is lying in bed comfortably. Her urine is showing gram-negative rods. Her blood culture is negative. Her white count 4.9, hemoglobin 11. Her sodium is 151, creatinine 1.24, which is down from 1.4. PHYSICAL EXAMINATION: GENERAL: She is currently alert. VITAL SIGNS: Stable, currently afebrile. HEENT: She is not icteric. NECK: Supple. CHEST: Crackles. HEART: S1 and S2. ABDOMEN: Soft. Bowel sounds present. EXTREMITIES: No edema. SKIN: No rash. IMPRESSION/PLAN: 1. Acute kidney injury, dehydration, sepsis on admission. 2. Urinary tract infection gram-negative bacilli. At the [facility], it was multidrug resistant. We gave her one dose of gentamicin. Because of kidney function, we will put her on meropenem for the time being until I get the culture and sensitivity. Recheck CBC. Recheck Chem panel. Further recommendations to follow. cultures remains pending continue supportive care as ordered
[2020-08-10] VITALS (8 sets, daily range): BP systolic 108–122; BP diastolic 56–99
[2020-08-10] MEDS: MEROPENEM 500MG/ NS 50ML 50 ML IV SCH ×3 (01:00→17:00)
--- NOTE | 2020-08-10 06:45 | NUR ---
SBAR BEDSIDE REPORT RECEIVED FROM JOSE CLEVELAND, PM SHIFT. PT FOUND LYING IN BED, HOB ELEVATED 30 DEGREES. PATIENT'S EYES WERE WIDE OPENED AND APPEARED MORE ALERT TODAY. PATIENT WAS ABLE TO HOLD A CONVERSATION DURING REPORT. PATIENT INITIATED REQUEST FOR WATER AND STATED "I AM THIRSTY". PATIENT ALSO STATED THAT SHE WAS "PROBABLY GOING HOME TODAY TO GET IN HER NEW BED". HEALTH CARE SANITARY TECHNICIAN NURSE JSOE ATTRIBUTES PATIENT'S INCREASED ALERTNESS TO HOLDING PM MELATONIN LAST NIGHT. BED ALARM REMAINS ON. PATIENT WAS EDUCATED ON FALL RISK PRECAUTIONS AND PATIENT VERBALIZED UNDERSTANDING. CALL LIGHT AND BELONGINGS PLACED NEARBY. WILL CONTINUE TO MONITOR. Addendum: 08/10/20 at 0755 by Usha Latham RN PATIENT TOOK CRUSHED MEDICATION IN PUDDING LAST NIGHT.
[2020-08-10] MEDS: DOCUSATE SODIUM 100 MG CAP PO SCH (09:08)
[2020-08-10] MEDS: DEXTROSE 5%/0.45% SOD CHL 1,000 ML IV SCH (09:08)
[2020-08-10] MEDS: FERROUS SULFATE 325 MG TAB PO SCH ×2 (09:08→18:19)
[2020-08-10] MEDS: METOPROLOL TARTRATE 50 MG TAB PO SCH ×2 (09:08→21:53)
[2020-08-10] MEDS: LEVOTHYROXINE SODIUM 100 MCG/VIAL IV SCH (09:08)
[2020-08-10] MEDS: FAMOTIDINE 20 MG/2 ML VIAL IV SCH ×2 (09:08→17:00)
[2020-08-10] MEDS: MIDODRINE HCL 5 MG TABLET PO SCH ×2 (09:09→18:19)
--- NOTE | 2020-08-10 12:00 | NUR ---
PATIENT WAS SAT UP 70 DEGREES AND TOLERATED 10 SPOONS OF PUREED TOMATO BASE. THE PATIENT REFUSED TO EAT THE MASH POTATOES. THE PATIENT TOOK A SIP OF THE LEMON FLAVORED THICKENED WATER AND STATED, "THAT TASTES NASTY". PATIENT WAS ALERT,PLEASANT AND VERY CONVERSANT BUT THE CONTENT WAS VERY BIZARRE AND INAPPROPRIATE. PATIENT HAD MULTIPLE VISUAL AND AUDITORY HALLUCINATIONS. THE PATIENT STATED THAT SHE SAW A LITTLE GIRL AND SHE OFFERED THE LITTLE GIRL TOMATO SOUP. THE PATIENT WAS ORIENTED TO SELF BUT NOT TO TIME AND PLACE. I ASKED THE PATIENT WHERE SHE WAS RIGHT NOW. THE PATIENT REPLIED, "NOW THAT I DON'T KNOW." PATIENT WAS REORIENTED AND REASSURED. PATIENT REPLIED, "I HAVE HAD A HARD DAY". PATIENT WAS LEFT TO REST.
[2020-08-10 13:34] LABS: BASOPHILS % 0.8 % (0.0-1.0); EOSINOPHILS # (AUTO) 0.2 (0.0-0.4); EOSINOPHILS % 3.7 % (0.0-6.0); HEMATOCRIT 37.3 % (34.2-44.1); LYMPHOCYTES # (AUTO) 1.1 (1.0-3.2); LYMPHOCYTES % 21.5 % (18.0-39.1); MEAN CORPUSCULAR HGB CONC 29.5 g/dL (31-35); MEAN CORPUSCULAR VOLUME 91.6 fL (81-99); MONOCYTES # (AUTO) 0.3 (0.2-0.8); MONOCYTES % 5.5 % (4.4-11.3); NEUTROPHILS # (AUTO) 3.2 (2.1-6.9); NEUTROPHILS % 65.8 % (38.7-80.0); PLATELET COUNT 171 x10e3/uL (140-360); RED BLOOD COUNT 4.07 x10e6/uL (3.6-5.1); RED CELL DISTRIBUTION WIDTH 15.2 % (11.7-14.4)
[2020-08-10 13:50] LABS: ANION GAP 12.5 mmol/L (8-16); CALCIUM 7.1 mg/dL (8.4-10.2); CREATININE, SERUM 0.95 mg/dL (0.57-1.11); MAGNESIUM 1.7 MG/DL (1.3-2.1); POTASSIUM 3.5 mmol/L (3.5-5.1)
--- NOTE | 2020-08-10 15:00 | NUR ---
PATIENT'S IV INFILTRATED. I ATTEMPTED TO RESTART IV WITHOUT SUCCESS. DIAMOND, FRONT DESK CLERK, ATTEMPTED TO START IV UNSUCCESSFUL. PICC LINE ORDER PLACED PER VIVEK HENNESSY. PHONE CONSENT OBTAINED FROM EFREM GARZA, PATIENT'S SISTER.
[2020-08-10] MEDS ORDERED: POTASSIUM PHOSPHATE 15 MM in SODIUM CHLORIDE 0.9% 250ML 250 ML IV ONE (17:00)
--- NOTE | 2020-08-10 17:44 | NUR ---
INFECTIOUS DISEASE PROGRESS NOTE DR. BOWEN CC: AMS, unable to communicate effectively ROS: discussed with RN PHYSICAL EXAMINATION: GENERAL: She is currently alert. VITAL SIGNS: Stable, currently afebrile. HEENT: She is not icteric. NECK: Supple. CHEST: Crackles. HEART: S1 and S2. ABDOMEN: Soft. Bowel sounds present. EXTREMITIES: No edema. SKIN: No rash. Labs: reviewed Radiology: reviewed IMPRESSION: 1. Acute kidney injury, dehydration, sepsis on admission. 2. Urinary tract infection gram-negative bacilli. At the [facility], MRDO 3. Metabolic Encephalopathy 4. hypernatremia PLAN: Will plan on 3 days for cystitis of Merrem Will monitor response clinically no leukocytosis no fever Marlee Rivas MSN, PERSONAL CARER, AGACNP-BC Mango Bowen M.D.
--- NOTE | 2020-08-10 18:25 | Progress Note ---
DATE: CONSULTING PHYSICIANS: 1. Dr. Mango Kohler with Infectious Disease. 2. Dr. Chad Du with Urology. SUBJECTIVE: The patient is supine in bed. The charge nurse is currently attempting to insert a peripheral IV into her left arm. Usha, bedside RN reports the patient is much more conversant today with an improvement in her mental status compared to yesterday. She is having visual hallucinations. Speaking to a little girl that is not there. Her melatonin was held by the nightshift nurse last night. She is very confused, think she is still in the senior care, much more awake and alert. She had a bowel movement today. OBJECTIVE: VITAL SIGNS: Temperature 96.4, pulse 56, blood pressure 122/56, respirations 17, oxygen saturation 100%. GENERAL: No acute distress, supine. LUNGS: Clear to auscultation. Respiratory pattern even and unlabored. HEENT: EOMI. NECK: Supple. CARDIOVASCULAR: Regular rate and rhythm. Bradycardia noted. ABDOMEN: Obese, soft, nontender, suprapubic catheter in place. EXTREMITIES: No pitting edema. No clubbing, cyanosis, or signs of DVT. Decreased range of motion bilateral lower extremities. Bilateral footdrop. NEUROLOGIC: GCS 14, eye 4, verbal 4, motor 6. LABORATORY DATA: WBCs 4.89, hemoglobin 11, hematocrit 37.3, platelets 171. Sodium 145, potassium 3.5, chloride 114, CO2 22, anion gap 12.5, BUN 12, creatinine 0.95, estimated GFR 58, glucose 80, calcium 7.1, phosphorus 2.0, magnesium 1.7. Urine culture and sensitivity collected 08/07, showed multidrug resistant ESBL Proteus mirabilis as well as multidrug resistant Pseudomonas aeruginosa. Her urine culture collected on 08/08 was positive for multidrug resistant ESBL producing Proteus mirabilis and Staphylococcus viridans. IMAGING/OTHER: Echocardiogram done 08/09 final results show atrial fibrillation, moderate concentric left ventricular hypertrophy, calculated left ventricular ejection fraction 59%. Diastolic filling pattern indicating impaired relaxation. Trace tricuspid regurgitation. ASSESSMENT AND PLAN: 1. Multidrug resistant urinary tract infection, POA, with ESBL Proteus mirabilis, Streptococcus viridans and Pseudomonas aeruginosa. Continue Merrem. Infectious disease following. It is becoming increasingly difficult to keep in a peripheral IV. PICC line placement by Interventional Radiology ordered. WBCs 4.11, afebrile. 2. Neurogenic bladder, suprapubic catheter in situ. Plans by Urology to change suprapubic catheter at some point during this hospitalization. 3. Metabolic encephalopathy/altered mental status from baseline, likely due to urinary tract infection and acute kidney injury. There are signs of improvement, hopefully getting closer to baseline. 4. Acute kidney injury. BUN 12, creatinine 0.95, estimated GFR 58. Improvement noted. Continue IV hydration as able. Monitor for any signs or symptoms of fluid volume overload. 5. Acute hypernatremia. Sodium 145, showing improvement. Monitor sodium level. 6. Acute hypokalemia. Potassium level 3.5. 15 millimoles potassium phosphate ordered. Monitor potassium level. 7. Acute hypophosphatemia with phosphorus level 2.0. Reassess phosphorus level in the morning after potassium phosphate. 8. History of CVA with dysphagia, edentulous. Per speech therapy today, the patient presented with consistent signs and symptoms of aspiration with thin liquids and would benefit from an objective evaluation of swallow safety. Diet with nectar thick liquids has been recommended as well as a modified barium swallow study to rule out aspiration and determine least restrictive diet. The patient seems much more alert. Today, we will go ahead and order modified barium swallow. Physical therapy to continue to follow. 9. Chronic hypotension. BP 122/56. Continue midodrine 5 mg b.i.d. Monitor blood pressure and telemetry. 10. Chronic diastolic congestive heart failure with ejection fraction 59% per final echo results. B-type natriuretic peptide was 155.2. Strict intake and output. Monitor for signs of fluid volume overload. 11. Prophylaxis, Pepcid and SCDs. Inpatient, billing code [id number], time spent 45 minutes. Dictated by Addison Cook NP Festus Rizvi MD HWP/MODL /[id number]
[2020-08-10] MEDS: MELATONIN 5 MG TABLET PO SCH (21:00)
[2020-08-10] MEDS: ATORVASTATIN 40 MG TAB PO SCH (21:46)
[2020-08-11] VITALS (8 sets, daily range): BP systolic 101–146; BP diastolic 47–71
--- NOTE | 2020-08-11 01:06 | NUR ---
called radiology dept about picc line order, was informed that they will be coming later on.
--- NOTE | 2020-08-11 01:57 | NUR ---
picc nurse is here to do picc line
--- NOTE | 2020-08-11 02:42 | Diagnostic Imaging Report ---
EXAMINATION: CHEST XRAY LINE PLACEMENT 1 VIEW INDICATION: picc COMPARISON: Radiograph dated August 07, 2020. FINDINGS: Right PICC tip projects over the distal SVC. No pneumothorax. Normal heart size. Pulmonary vessels are within normal limits. No consolidation. No pleural effusion. No pneumothorax. Surgical clips project over the right upper quadrant. IMPRESSION: Right PICC tip projects over the distal SVC. No pneumothorax. Signed by: Jose A Chaparro MD on 08/11/2020 2:39 AM
[2020-08-11] MEDS: MEROPENEM 500MG/ NS 50ML 50 ML IV SCH ×3 (03:00→17:58)
--- NOTE | 2020-08-11 03:14 | NUR ---
new picc line in place, xray done, got ok to use order. IV abx started.
[2020-08-11] MEDS: DEXTROSE 5%/0.45% SOD CHL 1,000 ML IV SCH ×2 (03:15→20:34)
--- NOTE | 2020-08-11 06:05 | NUR ---
patel care and picc line care provided.
--- NOTE | 2020-08-11 06:23 | NUR ---
blood drawn from picc line and sent to lab.
[2020-08-11 06:30] LABS: BASOPHILS % 0.7 % (0.0-1.0); EOSINOPHILS # (AUTO) 0.2 (0.0-0.4); EOSINOPHILS % 4.4 % (0.0-6.0); HEMATOCRIT 31.2 % (34.2-44.1); HEMOGLOBIN 9.7 g/dL (12.0-16.0); LYMPHOCYTES # (AUTO) 1.4 (1.0-3.2); LYMPHOCYTES % 32.9 % (18.0-39.1); MEAN CORPUSCULAR HEMOGLOBIN 28.5 pg (28-32); MEAN CORPUSCULAR HGB CONC 31.1 g/dL (31-35); MEAN CORPUSCULAR VOLUME 91.8 fL (81-99); MONOCYTES # (AUTO) 0.2 (0.2-0.8); MONOCYTES % 5.4 % (4.4-11.3); NEUTROPHILS # (AUTO) 2.3 (2.1-6.9); NEUTROPHILS % 54.7 % (38.7-80.0); PLATELET COUNT 145 x10e3/uL (140-360); RED CELL DISTRIBUTION WIDTH 15.3 % (11.7-14.4)
--- NOTE | 2020-08-11 06:45 | NUR ---
SBAR BEDSIDE REPORT RECEIVED FROM DEBORAH RN, PM SHIFT. PATIENT WAS FOUND ASLEEP IN BED, HOB UP 30 DEGREES. PT AROUSED AND AWAKENED BUT APPEARED TO BE IN NO ACUTE DISTRESS. PATIENT AAOX1 AND BED ALARM REMAINS ON SIDERAILS UP. PICC LINE TO SANTA PATENT AND POTASSIUM PHOSPATE INFUSING WITHOUT COMPLICATIONS. PATIENT TURNED TO LEFT SIDE. CALL LIGHT AND BELONGINGS PLACED NEARBY. WILL CONTINUE TO MONITOR.
[2020-08-11 06:55] LABS: ANION GAP 9.8 mmol/L (8-16); BLOOD UREA NITROGEN 11 mg/dL (7-26); BUN/CREATININE RATIO 12 (6-25); CARBON DIOXIDE 25 mmol/L (22-29); CHLORIDE 113 mmol/L (98-107); CREATININE, SERUM 0.92 mg/dL (0.57-1.11); EST GLOMERULAR FILTRATION RATE > 60 ML/MIN (60-); GLUCOSE 60 mg/dL (74-118); MAGNESIUM 1.7 MG/DL (1.3-2.1); PHOSPHORUS 3.4 MG/DL (2.3-4.7); POTASSIUM 3.8 mmol/L (3.5-5.1); SODIUM 144 mmol/L (136-145)
[2020-08-11] MEDS: METOPROLOL TARTRATE 50 MG TAB PO SCH ×2 (09:00→20:33)
[2020-08-11] MEDS: FERROUS SULFATE 325 MG TAB PO SCH ×2 (09:02→17:00)
[2020-08-11] MEDS: FAMOTIDINE 20 MG/2 ML VIAL IV SCH ×2 (09:02→17:58)
[2020-08-11] MEDS: MIDODRINE HCL 5 MG TABLET PO SCH ×2 (09:02→17:00)
[2020-08-11] MEDS: DOCUSATE SODIUM 100 MG CAP PO SCH (09:02)
[2020-08-11] MEDS: LEVOTHYROXINE SODIUM 100 MCG/VIAL IV SCH (09:31)
--- NOTE | 2020-08-11 11:10 | NUR ---
PATIENT OFF THE FLOOR FOR MODIFIED BARIUM SWALLOW TEST
--- NOTE | 2020-08-11 11:39 | NUR ---
PATIENT BACK ON THE FLOOR FROM MODIFIED BARIUM SWALLOW TEST. D51/2NS RECONNECTED TO PICC LINE RIGHT UPPER ARM. PATIENT SLEEPY BUT AROUSED/LOCALIZED TO PAINFUL STIMULI.
--- NOTE | 2020-08-11 17:37 | NUR ---
INFECTIOUS DISEASE PROGRESS NOTE DR. BOWEN CC: AMS, unable to communicate effectively. However, overall improved. ROS: discussed with RN PHYSICAL EXAMINATION: GENERAL: She is currently alert. VITAL SIGNS: Stable, currently afebrile. HEENT: She is not icteric. NECK: Supple. CHEST: Crackles. HEART: S1 and S2. ABDOMEN: Soft. Bowel sounds present. EXTREMITIES: No edema. SKIN: No rash. Labs: reviewed Radiology: reviewed IMPRESSION: 1. Acute kidney injury, dehydration, sepsis on admission. 2. Urinary tract infection gram-[facility] 3. Metabolic Encephalopathy 4. hypernatremia PLAN: Will plan on 3 days for cystitis of Merrem Will monitor response clinically no leukocytosis no fever Marlee Rivas MSN, METAL MINER BLASTING, AGACNP-BC Mango Bowen M.D.
[2020-08-11] MEDS: ATORVASTATIN 40 MG TAB PO SCH (20:33)
[2020-08-11] MEDS: MELATONIN 5 MG TABLET PO SCH (20:34)
[2020-08-12] VITALS (9 sets, daily range): BP systolic 99–116; BP diastolic 47–66
[2020-08-12] MEDS: MEROPENEM 500MG/ NS 50ML 50 ML IV SCH ×3 (00:46→17:37)
--- NOTE | 2020-08-12 06:45 | NUR ---
SBAR BEDSIDE REPORT RECEIVED FROM BURAK RN, PM SHIFT. PATIENT FOUND ASLEEP AND APPEARED TO BE IN NO ACUTE DISTRESS UPON AROUSAL. PATIENT IS ORIENTED TO SELF ONLY NOT TO TIME,LOCATION, SITUATION. BASELINE IS DEMENTIA. BED ALARM REMAINS ON AND SIDERAILS IN UP POSITION. PICC LINE TO SANTA PATENT AND INFUSING CONTINUOUS FLUIDS AND SUPRAPUBIC CATHETER DRAINING CLEAR RAYMOND URINE. WILL CONTINUE TO MONITOR.
[2020-08-12] MEDS: LEVOTHYROXINE SODIUM 100 MCG/VIAL IV SCH (08:28)
[2020-08-12] MEDS: FAMOTIDINE 20 MG/2 ML VIAL IV SCH ×2 (08:28→17:37)
[2020-08-12 08:33] LABS: ANION GAP 10.4 mmol/L (8-16); BLOOD UREA NITROGEN 8 mg/dL (7-26); BUN/CREATININE RATIO 10 (6-25); CARBON DIOXIDE 24 mmol/L (22-29); CHLORIDE 113 mmol/L (98-107); CREATININE, SERUM 0.84 mg/dL (0.57-1.11); EST GLOMERULAR FILTRATION RATE > 60 ML/MIN (60-); GLUCOSE 71 mg/dL (74-118); POTASSIUM 3.4 mmol/L (3.5-5.1); SODIUM 144 mmol/L (136-145)
[2020-08-12 08:41] LABS: CALCIUM 6.9 mg/dL (8.4-10.2)
[2020-08-12] MEDS: MIDODRINE HCL 5 MG TABLET PO SCH ×2 (09:00→17:37)
[2020-08-12] MEDS: METOPROLOL TARTRATE 50 MG TAB PO SCH ×2 (09:00→20:55)
[2020-08-12] MEDS: DOCUSATE SODIUM 100 MG CAP PO SCH (09:00)
[2020-08-12] MEDS: FERROUS SULFATE 325 MG TAB PO SCH ×2 (09:00→17:38)
--- NOTE | 2020-08-12 09:38 | Diagnostic Imaging Report ---
PROCEDURE: X-RAY MODIFIED BARIUM SWALLOW COMPARISON: None. INDICATION: Aspiration Radiation Details: Fluoroscopy time: 1.5 minutes Cumulative dose: 7.9 mGy DISCUSSION: Fluoroscopic examination was performed in conjunction with speech pathology during swallowing a variety of thin and thick liquid consistencies. Provided images demonstrate laryngeal penetration and aspiration. CONCLUSION: Modified barium swallow demonstrating laryngeal penetration and aspiration. Please refer to the speech pathology report for further details. Signed by: Luli Kelly MD on 08/12/2020 9:35 AM
[2020-08-12 09:45] LABS: BASOPHILS % 0.8 % (0.0-1.0); EOSINOPHILS # (AUTO) 0.2 (0.0-0.4); EOSINOPHILS % 3.9 % (0.0-6.0); HEMATOCRIT 34.8 % (34.2-44.1); HEMOGLOBIN 10.6 g/dL (12.0-16.0); LYMPHOCYTES # (AUTO) 1.1 (1.0-3.2); LYMPHOCYTES % 21.5 % (18.0-39.1); MEAN CORPUSCULAR HEMOGLOBIN 27.7 pg (28-32); MEAN CORPUSCULAR HGB CONC 30.5 g/dL (31-35); MEAN CORPUSCULAR VOLUME 90.9 fL (81-99); MONOCYTES # (AUTO) 0.3 (0.2-0.8); MONOCYTES % 6.3 % (4.4-11.3); NEUTROPHILS # (AUTO) 3.2 (2.1-6.9); NEUTROPHILS % 65.5 % (38.7-80.0); PLATELET COUNT 166 x10e3/uL (140-360); RED BLOOD COUNT 3.83 x10e6/uL (3.6-5.1); RED CELL DISTRIBUTION WIDTH 15.1 % (11.7-14.4)
--- NOTE | 2020-08-12 12:00 | NUR ---
SYED HENNESSY MADE AWARE OF THE PATIENT'S LETHARGY , DECREASED ALERTNESS, AND DECREASED ORAL INTAKE. ORDERS RECEIVED FOR STAT AMMONIA.
--- NOTE | 2020-08-12 14:57 | NUR ---
ST Note: EMR reviewed, recent events noted. Spoke with MEGHA Kerr, on the phone re: pt's po intake. Per report, pt ate very little today and so unable to make judgement re: tolerance of current diet. Will f/u as indicated.
[2020-08-12] MEDS: FLUCONAZOLE 100 MG/NS 50 ML 50 ML IV SCH ×2 (15:00→15:30)
--- NOTE | 2020-08-12 15:00 | NUR ---
PATIENT WOKE UP AND ATE PUREED PEARS AND 3 SPOONS OF PUREE ROAST BEEF AND GRAVY. PATIENT ALSO DRANK 4OZ THICKENED ORANGE JUICE.
--- NOTE | 2020-08-12 15:33 | NUR ---
Nutrition Intervention Note RD Recommendation(s) for Physician: - Continue current diet as ordered per speech therapy - Recommend Ensure Enlive BID and Ensure pudding TID for adequacy. - If intake remains poor or unable to advance diet, consider enteral nutrition Plan of Care: RD following, monitoring for tolerance and adequacy. Diet, oral nutrition supplement recommendation Nutrition reason for involvement: follow up RD Assessment 08/12: Follow up. Chart reviewed. Pt was discussed during interdisciplinary rounds. RN reports that pt is too lethargic to eat. 0-50% meal intake recorded. Oral supplement recommendations provided to RN. Will continue to monitor. 08/09: 69 YOF admitted from [place] for AMS, UTI, [place], and dehydration. Pt seen today per [employer] consult for "poor nutrition, swallowing issues per [employer], AMS related to UTI" and stage II PU on admit. Pt sleeping at time of admit, did not respond to greeting. Pt appears well nourished. Noted rec's for pureed diet texture with thin liquids, supervision with meals per current diet order even though pt is on CLD. Diet, ONS, and TF rec's provided pending pt diet progression and adequacy. Chart reviewed. Will continue to monitor. Principal Problems/Diagnoses: AMS, UTI PMH: dementia, HTN, CAD, hypothyroidism GI: Last BM 08/10 Skin: sacral stage II PU Labs: 08/12: Na 144, K 3.4, BUN 8, Cr 0.84, Glu 71, Ca 6.9 08/09: Na 148, K 4.6, BUN 21, Cr 1.06, Gluc 66, A1C 4.9, Mg 2.2 Meds: levothyroxine, pepcid, colace, Lipitor, metoprolol, ferrous sulfate, hydralazine Ht: 63 in Wt: 190 lb BMI: 33.7 kg/m2 IBW: 115 lb Malnutrition Evaluation (08/09/20) The patient does not meet criteria for a specified degree of malnutrition at this time. Will re-evaluate at follow-up as appropriate. Energy intake: RICHARD Weight loss: none, no wt loss per prior admit in March 2020 Fat loss: none, ample skinfold thickness to arm Muscle loss: none, shoulder round, clavicle not visible Supporting Evidence: Fluid accumulation: none observed Functional Status: not assessed Nutrition Prescription (Diet Order): regular diet (pureed/nectar thick) Estimated Nutritional Needs: 8578-4748 calories/day (22-25 kcal/kg IBW) 78-105 g protein/day (1.5-2 g pro/kg IBW) Diet Adequacy: Not meeting calorie needs, Not meeting protein needs Diet Tolerance: unable to assess, pt is too lethargic to eat per RN Diet Education Needs Assessment: Diet education not indicated at this time. Nutrition Care Level: moderate Nutrition Diagnosis: Inadequate energy and protein intake related to current medical conditions as evidenced by not meeting needs. Goal: Patient will meet 75-100% of estimated needs by follow up Progress: not progressing Interventions: -texture, modified diet, Commercial beverage, Commercial food Monitoring/Evaluation: -Total energy intake, Total protein intake, Modified diet, Liquid supplement, Weight change Signed: Katherine Fernandes RD, LD
[2020-08-12] MEDS ORDERED: ONDANSETRON HCL 4 MG ORAL DISINTEGRATING TAB PO PRN (16:30)
--- NOTE | 2020-08-12 16:36 | NUR ---
infectious disease personal patient's exam and chart reviewed events noted. The patient about the same. NFECTIOUS DISEASE PROGRESS NOTE DR. BOWEN CC: AMS, unable to communicate effectively ROS: discussed with RN PHYSICAL EXAMINATION: GENERAL: She is currently alert. but confused VITAL SIGNS: Stable, currently afebrile. HEENT: She is not icteric. not pale normocephalic NECK: Supple. CHEST: Crackles. clear bilateral HEART: S1 and S2. ABDOMEN: Soft. Bowel sounds present. EXTREMITIES: No edema. SKIN: No rash. Labs: reviewed Radiology: reviewed review of systems cannot be obtained but nothing new IMPRESSION: 1. Acute kidney injury, dehydration, sepsis on admission. 2. Urinary tract infection gram-negative bacilli. [facility] the [facility], MRDO 3. Metabolic Encephalopathy 4. hypernatremia
[2020-08-12] MEDS ORDERED: POTASSIUM CHLORIDE 10MEQ EA PO ONE (20:10)
[2020-08-12] MEDS: MELATONIN 5 MG TABLET PO SCH (20:55)
[2020-08-12] MEDS: DEXTROSE 5%/0.45% SOD CHL 1,000 ML IV SCH (20:55)
[2020-08-12] MEDS: ATORVASTATIN 40 MG TAB PO SCH (20:55)
[2020-08-13] VITALS (9 sets, daily range): BP systolic 105–151; BP diastolic 48–79
[2020-08-13] MEDS: MEROPENEM 500MG/ NS 50ML 50 ML IV SCH ×2 (01:15→08:00)
[2020-08-13 05:27] LABS: BASOPHILS % 0.6 % (0.0-1.0); EOSINOPHILS # (AUTO) 0.2 (0.0-0.4); EOSINOPHILS % 3.8 % (0.0-6.0); HEMATOCRIT 30.5 % (34.2-44.1); HEMOGLOBIN 9.7 g/dL (12.0-16.0); LYMPHOCYTES # (AUTO) 1.3 (1.0-3.2); LYMPHOCYTES % 27.4 % (18.0-39.1); MEAN CORPUSCULAR HEMOGLOBIN 29.3 pg (28-32); MEAN CORPUSCULAR HGB CONC 31.8 g/dL (31-35); MEAN CORPUSCULAR VOLUME 92.1 fL (81-99); MONOCYTES # (AUTO) 0.3 (0.2-0.8); MONOCYTES % 5.9 % (4.4-11.3); NEUTROPHILS # (AUTO) 2.9 (2.1-6.9); NEUTROPHILS % 60.4 % (38.7-80.0); PLATELET COUNT 140 x10e3/uL (140-360); RED BLOOD COUNT 3.31 x10e6/uL (3.6-5.1); RED CELL DISTRIBUTION WIDTH 15.5 % (11.7-14.4)
[2020-08-13 05:55] LABS: ALBUMIN 1.8 g/dL (3.5-5.0); ANION GAP 9.6 mmol/L (8-16); BLOOD UREA NITROGEN 7 mg/dL (7-26); BUN/CREATININE RATIO 9 (6-25); CARBON DIOXIDE 24 mmol/L (22-29); CHLORIDE 112 mmol/L (98-107); CREATININE, SERUM 0.79 mg/dL (0.57-1.11); EST GLOMERULAR FILTRATION RATE > 60 ML/MIN (60-); GLUCOSE 71 mg/dL (74-118); POTASSIUM 3.6 mmol/L (3.5-5.1); SODIUM 142 mmol/L (136-145)
[2020-08-13 06:06] LABS: CALCIUM 6.8 mg/dL (8.4-10.2)
[2020-08-13] MEDS ORDERED: CALCIUM GLUCONATE 10% INJ 9.3 MEQ in SODIUM CHLORIDE 0.9% 100 ML 100 ML IV ONE (06:15)
--- NOTE | 2020-08-13 06:45 | NUR ---
SBAR BEDSIDE REPORT RECEIVED FROM BURAK C[place], PM SHIFT. PATIENT FOUND RESTING IN BED. PATIENT WAS AROUSED AND APPEARED TO BE IN NO ACUTE DISTRESS. BED ALARM REMAINS ON AND SIDERAILS ARE UP. CATHETER TUBING FREE OF LOOPS. CALL LIGHT AND BELONGINGS PLACED NEARBY. WILL CONTINUE TO MONITOR.
--- NOTE | 2020-08-13 08:00 | NUR ---
TAYA DOTY ATTEMPTED TO FEED PATIENT WITHOUT SUCCESS. I ATTEMPTED TO FEED PATIENT AND THE PATIENT EXPRESSED THAT SHE WAS NOT READY TO EAT AND WILL BE READY LATER. PT REFUSED THICKENED ORANGE JUICE, ENSURE, AND PUDDING. PT REFUSED TO EAT WITH COPIOUS ENCOURAGEMENT. PT IS TIRED AND WILL NOT OPEN MOUTH. PATIENT REMAINS ORIENTED TO SELF AND DOES RESPOND TO QUESTIONS AND OPENS EYES TO VOICE. PATIENT DOES LOCALIZE TO PAINFUL STIMULI. I WILL CONTINUE TO ENCOURAGE ORAL INTAKE. WILL CONTINUE TO MONITOR. Addendum: 08/13/20 at 0949 by Usha Latham RN PT'S BLOOD SUGAR IS STABLE AND D51/2NS INFUSING CONTINUOUSLY PER MD ORDER.
[2020-08-13] MEDS ORDERED: SODIUM CHLORIDE 0.9% 50ML 50 ML ONE (08:59)
[2020-08-13] MEDS: CALCIUM CARBONATE 500 MG CHEWABLE TABS PO SCH ×2 (09:00→16:32)
[2020-08-13] MEDS: FERROUS SULFATE 325 MG TAB PO SCH ×2 (09:00→16:32)
[2020-08-13] MEDS: DOCUSATE SODIUM 100 MG CAP PO SCH (09:00)
[2020-08-13] MEDS: FAMOTIDINE 20 MG/2 ML VIAL IV SCH ×2 (09:01→15:02)
--- NOTE | 2020-08-13 09:09 | NUR ---
Infectious disease parents note patient's exam and chart reviewedCC: AMS, unable to communicate effectively. However, overall improved. ROS: discussed with RN PHYSICAL EXAMINATION: GENERAL: She is currently alert. VITAL SIGNS: Stable, currently afebrile. HEENT: She is not icteric. NECK: Supple. CHEST: Crackles. HEART: S1 and S2. ABDOMEN: Soft. Bowel sounds present. EXTREMITIES: No edema. SKIN: No rash. Labs: reviewed Radiology: reviewed IMPRESSION: 1. Acute kidney injury, dehydration, sepsis on admission. 2. Urinary tract infection gram-negative bacilli. At the [facility], MRDO 3. Metabolic Encephalopathy 4. hypernatremia
[2020-08-13] MEDS: METOPROLOL TARTRATE 50 MG TAB PO SCH ×2 (09:30→21:45)
[2020-08-13] MEDS: LEVOTHYROXINE SODIUM 100 MCG/VIAL IV SCH (09:30)
[2020-08-13] MEDS: MIDODRINE HCL 5 MG TABLET PO SCH ×2 (09:30→16:32)
--- NOTE | 2020-08-13 11:30 | NUR ---
I FED PATIENT 4OZ THICKENED ENSURE AND 4 OZ THICKENED ORANGE JUICE. PATIENT REQUESTED ORANGE JUICE BECAUSE IT IS HER "FAVORITE". PATIENT WAS ENCOURAGED TO DRINK ENSURE BUT WOULD ONLY DRINK 4OZ. PATIENT ATE 1 SPOON OF BEEF ROAST AND GRAVY. PATIENT STATED SHE WAS TOO TIRED TO EAT ANYMORE AND WANTED TO REST.
--- NOTE | 2020-08-13 12:30 | NUR ---
I RECEIVED 12 NOON VITAL SIGNS FROM WIRE ANNEALER. BP READING 151/61 HR 61. BLOOD PRESSURE WAS SIGNIFICANTLY DIFFERENT FROM 8AM. I REASSESSED BLOOD PRESSURE 118/66 HR=67. PATIENT ASYMPTOMATIC. WILL CONTINUE TO MONITOR.
--- NOTE | 2020-08-13 14:07 | NUR ---
INFECTIOUS DISEASE PROGRESS NOTE DR. BOWEN CC: AMS, unable to communicate effectively. However, overall improved. ROS: discussed with RN PHYSICAL EXAMINATION: GENERAL: She is currently alert. VITAL SIGNS: Stable, currently afebrile. HEENT: She is not icteric. NECK: Supple. CHEST: Crackles. HEART: S1 and S2. ABDOMEN: Soft. Bowel sounds present. EXTREMITIES: No edema. SKIN: No rash. Labs: reviewed Radiology: reviewed IMPRESSION: 1. Acute kidney injury, dehydration, sepsis on admission. 2. Urinary tract infection gram-negative bacilli. [facility] the [facility], MRDO 3. Metabolic Encephalopathy 4. hypernatremia PLAN: Merrem with improvement, will d/c no leukocytosis no fever Marlee Rivas MSN, PARACHUTE FOLDER, AGACNP-BC Mango Bowen M.D.
[2020-08-13] MEDS: DEXTROSE 5%/0.45% SOD CHL 1,000 ML IV SCH (15:02)
[2020-08-13] MEDS: FLUCONAZOLE 100 MG/NS 50 ML 50 ML IV SCH (15:02)
--- NOTE | 2020-08-13 16:51 | Diagnostic Imaging Report ---
EXAMINATION: CHEST SINGLE (PORTABLE) INDICATION: Altered mental status ^DIAGNOSTIC ^[id number] ^1613 ^Y COMPARISON: Chest radiograph 08/11/2020 FINDINGS: TUBES and LINES: Mild retraction of right PICC with tip now at the low SVC. LUNGS: Normal lung volumes. No focal opacity or consolidation. PLEURA: No pleural effusion or pneumothorax. HEART AND MEDIASTINUM: The cardiomediastinal silhouette is unchanged. Episodic calcifications of the aortic arch BONES AND SOFT TISSUES: No acute osseous lesion. UPPER ABDOMEN: No free air under the diaphragm. IMPRESSION: 1. Mild retraction of right PICC with tip now at the low SVC. 2. No acute cardiopulmonary abnormality. Signed by: Dr. Gorge Boggs M.D. on 08/13/2020 4:47 PM
--- NOTE | 2020-08-13 19:00 | NUR ---
Received patient awake, not in distress, call light within reach, bed alarm on, will continue to monitor closely
[2020-08-13] MEDS: MELATONIN 5 MG TABLET PO SCH (21:45)
[2020-08-13] MEDS: ATORVASTATIN 40 MG TAB PO SCH (21:45)
[2020-08-14] VITALS (9 sets, daily range): BP systolic 103–128; BP diastolic 52–75
--- NOTE | 2020-08-14 05:30 | NUR ---
irrigated suprapubic with NS per MD ordered
[2020-08-14 06:37] LABS: BASOPHILS % 0.8 % (0.0-1.0); EOSINOPHILS # (AUTO) 0.2 (0.0-0.4); EOSINOPHILS % 4.1 % (0.0-6.0); HEMATOCRIT 32.7 % (34.2-44.1); HEMOGLOBIN 10.1 g/dL (12.0-16.0); LYMPHOCYTES # (AUTO) 1.5 (1.0-3.2); LYMPHOCYTES % 30.4 % (18.0-39.1); MEAN CORPUSCULAR HEMOGLOBIN 27.3 pg (28-32); MEAN CORPUSCULAR HGB CONC 30.9 g/dL (31-35); MEAN CORPUSCULAR VOLUME 88.4 fL (81-99); MONOCYTES # (AUTO) 0.3 (0.2-0.8); MONOCYTES % 6.2 % (4.4-11.3); NEUTROPHILS # (AUTO) 2.7 (2.1-6.9); NEUTROPHILS % 56.6 % (38.7-80.0); PLATELET COUNT 169 x10e3/uL (140-360)
[2020-08-14 07:04] LABS: ALANINE AMINOTRANSFERASE 11 IU/L (0-55); ALBUMIN 1.8 g/dL (3.5-5.0); ALBUMIN/GLOBULIN RATIO 0.6 (0.8-2.0); ALKALINE PHOSPHATASE 110 IU/L (40-150); ANION GAP 10.5 mmol/L (8-16); BLOOD UREA NITROGEN 6 mg/dL (7-26); BUN/CREATININE RATIO 8 (6-25); CALCIUM 7.3 mg/dL (8.4-10.2); CARBON DIOXIDE 24 mmol/L (22-29); CHLORIDE 107 mmol/L (98-107); EST GLOMERULAR FILTRATION RATE > 60 ML/MIN (60-); GLUCOSE 71 mg/dL (74-118); POTASSIUM 3.5 mmol/L (3.5-5.1); SODIUM 138 mmol/L (136-145)
[2020-08-14] MEDS: METOPROLOL TARTRATE 50 MG TAB PO SCH ×2 (09:00→20:22)
[2020-08-14] MEDS: FAMOTIDINE 20 MG/2 ML VIAL IV SCH ×2 (09:06→16:12)
[2020-08-14] MEDS: LEVOTHYROXINE SODIUM 100 MCG/VIAL IV SCH (09:06)
[2020-08-14] MEDS: CALCIUM CARBONATE 500 MG CHEWABLE TABS PO SCH ×2 (09:07→16:12)
[2020-08-14] MEDS: DOCUSATE SODIUM 100 MG CAP PO SCH (09:07)
[2020-08-14] MEDS: FERROUS SULFATE 325 MG TAB PO SCH ×2 (09:07→16:12)
[2020-08-14] MEDS: MIDODRINE HCL 5 MG TABLET PO SCH ×2 (09:07→16:11)
--- NOTE | 2020-08-14 09:54 | NUR ---
aware of HR 50s. Orders received to hold metoprolol if HR<64
[2020-08-14] MEDS: DEXTROSE 5%/0.45% SOD CHL 1,000 ML IV SCH (12:50)
[2020-08-14] MEDS ORDERED: POTASSIUM CHLORIDE 20 MEQ TAB CR PO NR (14:45)
[2020-08-14] MEDS: FLUCONAZOLE 100 MG/NS 50 ML 50 ML IV SCH (16:12)
[2020-08-14] MEDS ORDERED: ACETAMINOPHEN 325 MG TAB PO PRN (17:30)
--- NOTE | 2020-08-14 19:05 | NUR ---
Bedside report and walking rounds completed with off going nurse. Patient in bed with call light within reach. Bed locked and in lowest position. Instructed to call for assistance as needed. Will continue to monitor.
--- NOTE | 2020-08-14 19:08 | NUR ---
Report given to oncoming nurse of patient's status. Resting in bed. No s/s of acute distress noted. Side rails upx2, call light within reach, bed alarm on.
[2020-08-14] MEDS: ATORVASTATIN 40 MG TAB PO SCH (20:22)
[2020-08-14] MEDS: MELATONIN 5 MG TABLET PO SCH (20:22)
[2020-08-15] VITALS (7 sets, daily range): BP systolic 106–135; BP diastolic 52–80
[2020-08-15 05:30] LABS: BASOPHILS % 0.7 % (0.0-1.0); EOSINOPHILS # (AUTO) 0.2 (0.0-0.4); EOSINOPHILS % 3.5 % (0.0-6.0); HEMATOCRIT 32.7 % (34.2-44.1); HEMOGLOBIN 10.1 g/dL (12.0-16.0); LYMPHOCYTES # (AUTO) 1.7 (1.0-3.2); LYMPHOCYTES % 30.2 % (18.0-39.1); MEAN CORPUSCULAR HEMOGLOBIN 27.7 pg (28-32); MEAN CORPUSCULAR HGB CONC 30.9 g/dL (31-35); MEAN CORPUSCULAR VOLUME 89.8 fL (81-99); MONOCYTES # (AUTO) 0.3 (0.2-0.8); MONOCYTES % 5.8 % (4.4-11.3); NEUTROPHILS # (AUTO) 3.2 (2.1-6.9); NEUTROPHILS % 58.3 % (38.7-80.0); PLATELET COUNT 179 x10e3/uL (140-360); RED BLOOD COUNT 3.64 x10e6/uL (3.6-5.1); RED CELL DISTRIBUTION WIDTH 14.9 % (11.7-14.4)
[2020-08-15 05:58] LABS: BLOOD UREA NITROGEN 6 mg/dL (7-26); BUN/CREATININE RATIO 7 (6-25); CALCIUM 7.5 mg/dL (8.4-10.2); CARBON DIOXIDE 27 mmol/L (22-29); CHLORIDE 109 mmol/L (98-107); CREATININE, SERUM 0.81 mg/dL (0.57-1.11); EST GLOMERULAR FILTRATION RATE > 60 ML/MIN (60-); GLUCOSE 74 mg/dL (74-118); SODIUM 140 mmol/L (136-145)
[2020-08-15] MEDS: METOPROLOL TARTRATE 50 MG TAB PO SCH ×2 (07:50→20:42)
[2020-08-15] MEDS: MIDODRINE HCL 5 MG TABLET PO SCH ×2 (07:51→17:18)
[2020-08-15] MEDS: FERROUS SULFATE 325 MG TAB PO SCH ×4 (09:00→17:18)
[2020-08-15] MEDS: CALCIUM CARBONATE 500 MG CHEWABLE TABS PO SCH ×4 (09:00→17:18)
[2020-08-15] MEDS: DOCUSATE SODIUM 100 MG CAP PO SCH ×3 (09:00→10:13)
[2020-08-15] MEDS: FAMOTIDINE 20 MG/2 ML VIAL IV SCH ×2 (09:49→17:18)
--- NOTE | 2020-08-15 11:05 | NUR ---
INFECTIOUS DISEASE PROGRESS NOTE DR. BOWEN CC: AMS, unable to communicate effectively. However, overall improved. ROS: discussed with RN PHYSICAL EXAMINATION: GENERAL: She is currently alert. VITAL SIGNS: Stable, currently afebrile. HEENT: She is not icteric. NECK: Supple. CHEST: Crackles. HEART: S1 and S2. ABDOMEN: Soft. Bowel sounds present. EXTREMITIES: No edema. SKIN: No rash. Labs: reviewed Radiology: reviewed IMPRESSION: 1. Acute kidney injury, dehydration, sepsis on admission. 2. Urinary tract infection gram-negative bacilli. At the snf, MRDO 3. Metabolic Encephalopathy 4. hypernatremia PLAN: no leukocytosis no fever clinically improved colonization of the urine Recommend hipprex 1gm po BID for life Marlee Rivas MSN, ENTER[employer] MOBILITY ARCHITECT, AGACNP-BC Mango Bowen M.D.
--- NOTE | 2020-08-15 11:18 | NUR ---
Called pt's sister Nomei England at [phone] and also daughter Mounika Brunson [phone] to discuss dc planning. Left voicemail for both to callback.
--- NOTE | 2020-08-15 11:54 | NUR ---
Received call back from pt's sister Noemi England. She states the plan is to have pt return to [facility] on discharge. They have her room reserved. Informed her CM will send clinicals and update her once pt ready to return. IMM letter discussed. She verbalized understanding. Copy of IMM placed in pt's transition of care folder. Choice letter placed in front of chart. Signed IMM placed in chart. Clinicals faxed to [facility] at [phone]. Cm called and spoke with Osmel in admissions and informed her of possible dc soon and clinicals were sent.
[2020-08-15] MEDS: DEXTROSE 5%/0.45% SOD CHL 1,000 ML IV SCH (12:10)
[2020-08-15] MEDS: LEVOTHYROXINE SODIUM 100 MCG/VIAL IV SCH (12:16)
[2020-08-15] MEDS: FLUCONAZOLE 100 MG/NS 50 ML 50 ML IV SCH (14:49)
--- NOTE | 2020-08-15 15:49 | NUR ---
attempted to tx pt but was unable to arouse, nurse also stated she was unable to arouse earlier to take meds and has been heavily asleep..will f/u Addendum: 08/15/20 at 1550 by Jose A Marcos PTA Amended: Links added.
--- NOTE | 2020-08-15 16:31 | NUR ---
[facility] FACILITY DISCHARGE INFORMATION PATIENT HAS BEEN ACCEPTED TO: NAME: [facility] ADDRESS: [address] [place] [address] ACCEPTING HAND HARDENER: Dario Rice ACCEPTING MD: Dr. Janay Brody ROOM: 10A NURSE CALL REPORT TO: [phone] IMM SIGNED AND OBTAINED (if applicable): yes THE FOLLOWING DOCUMENTS MUST ACCOMPANY PATIENT FOR TRANSFER: copy of chart. transfer MAR COPIED CHART: Rocio, community engagement leader RTF: placed with pt's packet at nurses station [id number] DNR: n/a MEGHA Bangura and DAX Jaime were informed of bed.
[2020-08-15] MEDS: ATORVASTATIN 40 MG TAB PO SCH (20:42)
--- NOTE | 2020-08-15 21:09 | Progress Note ---
DATE: CONSULTING PHYSICIANS: 1. Dr. Mango Kohler with Infectious Disease. 2. Dr. Chad Du with Urology. SUBJECTIVE: Per the nurse, the patient has been really lethargic today, unable to arouse in order to take her medications. I attempted to speak with the patient, however, she only mumbled, barely opens her eyes. OBJECTIVE: VITAL SIGNS: Temperature 97.4. She has been afebrile. Pulse 49, bradycardia, blood pressure 135/80, respirations 16, and oxygen saturation 100%. GENERAL: Supine, no apparent distress, however, difficult to arouse. LUNGS: Clear to auscultation. Respiratory pattern even and nonlabored. Poor inspiratory volume. HEENT: EOMI. NECK: Supple. CARDIOVASCULAR: Regular rate and rhythm. No murmur. D5 in half-normal saline infusing at 50 mL an hour into a peripheral IV. ABDOMEN: Bowel sounds positive. Soft and obese. EXTREMITIES: No pitting edema. No clubbing, cyanosis, or signs of DVT. NEUROLOGICAL: GCS of 11, eye 3, verbal 3, motor 5. LABORATORY DATA: WBC 5.49, hemoglobin 10.1, hematocrit 32.7, and platelets 179. Sodium 140, potassium 4.0, chloride 109, CO2 27, anion gap 8, BUN 6, creatinine 0.81, estimated GFR greater than 60, glucose 74, and calcium 7.5. No new imaging studies. ASSESSMENT AND PLAN: 1. Altered mental status from baseline, metabolic encephalopathy due to infection, monitor. Stuporous during my visit, difficult to arouse, minimally interactive. 2. Multidrug-resistant urinary tract infection with Pseudomonas, Proteus, Strep. Continue IV Merrem. Infectious Disease following. 3. Neurogenic bladder with suprapubic catheter in situ. Urology following. Appreciate recommendations. 4. Anemia of chronic illness. Hemoglobin 10.1. Monitor. 5. Prophylaxis. Pepcid and SCDs. Inpatient billing code [id number]. Time spent 35 minutes. Dictated by Addison Cook NP Festus Rizvi MD HWP/MODL /[id number]
[2020-08-16] VITALS: BP 128/65
[2020-08-16 04:00] VITALS: BP 116/49
--- NOTE | 2020-08-16 07:51 | NUR ---
Bedside report and walking rounds completed with oncoming nurse. Patient in bed with call light within reach. Bed locked and in lowest position. Instructed to call for assistance as needed. Will continue to monitor.
[2020-08-16 08:57] VITALS: BP 114/63
[2020-08-16] MEDS: MIDODRINE HCL 5 MG TABLET PO SCH ×2 (09:00→09:40)
[2020-08-16] MEDS: METOPROLOL TARTRATE 50 MG TAB PO SCH ×2 (09:00→09:40)
[2020-08-16] MEDS: DOCUSATE SODIUM 100 MG CAP PO SCH ×2 (09:00→09:39)
[2020-08-16] MEDS: CALCIUM CARBONATE 500 MG CHEWABLE TABS PO SCH ×2 (09:00→09:40)
[2020-08-16] MEDS: FERROUS SULFATE 325 MG TAB PO SCH ×2 (09:00→09:40)
[2020-08-16 09:28] VITALS: BP 114/63
[2020-08-16] MEDS: FAMOTIDINE 20 MG/2 ML VIAL IV SCH (09:39)
--- NOTE | 2020-08-16 10:10 | NUR ---
ST Note: Attempted f/u for diet tolerance and dysphagia treatment. Pt sleeping. She opened her eyes to verbal stim and sternal rub but did not maintain level of alertness more than 10 seconds. Tx deferred. Will f/u later time permitting.
[2020-08-16 12:00] VITALS: BP 120/61
--- NOTE | 2020-08-16 12:23 | NUR ---
Called and spoke to Osmel at [facility]. Informed her that pt will need 5 more days of Merrem and that she will be transferring back today. Osmel states that was fine, they are able to give Merrem. also called and left message for pt's sister Noemi and informed her that pt will be discharging back to [facility] today. Left callback number for any questions.
--- NOTE | 2020-08-16 13:38 | NUR ---
Report given to Nurse Way in [facility].
--- NOTE | 2020-08-16 13:39 | Progress Note ---
DATE: SUBJECTIVE: Ms. Moya is doing about the same. She is comfortable and does not seem to be in acute distress. VITAL SIGNS: Stable, afebrile. HEENT: She is not icteric. NECK: Supple. CHEST: Clear. HEART: S1 and S2. ABDOMEN: Soft. Bowel sounds present. EXTREMITIES: No edema. SKIN: No rash. IMPRESSION: Urinary tract infection, bacteriuria, stable so far. Continue with plan as ordered and recommendations. Physical examination is unchanged and follow. MD ERIC West/MODL /[id number]
--- NOTE | 2020-08-16 16:00 | NUR ---
Patient transported via EMS to [facility]. Right upper PICC in placed intact. Suprapubic catheter intact, in placed draining yellow-colored urine to drainage bag. All personal belongings are taken with the patient. Respiration even and unlabored without SOB.
[2020-08-17] MEDS ORDERED: MEROPENEM 500MG/ NS 50ML 50 ML IV SCH (06:00)
[2020-08-17] MEDS ORDERED: LEVOTHYROXINE SODIUM 75 MCG TAB PO SCH (06:00)
[2020-08-17] MEDS ORDERED: FLUCONAZOLE 100 MG TAB PO SCH (09:00)
--- NOTE | 2020-08-17 12:59 | Discharge Summary ---
ADMISSION DIAGNOSES: Multi-drug resistant organism urinary tract infection, present on admission; neurogenic bladder; cerebrovascular accident with dysphagia; hypotension; atrial fibrillation; hypothyroidism; hypernatremia; acute kidney injury; hyperlipidemia; chronic diastolic congestive heart failure. DISCHARGE DIAGNOSES: Multi-drug resistant organism urinary tract infection, present on admission; neurogenic bladder; cerebrovascular accident with dysphagia; hypotension; atrial fibrillation; hypothyroidism; hypernatremia; acute kidney injury; hyperlipidemia; chronic diastolic congestive heart failure; rule out coronavirus disease 2019; extended-spectrum beta-lactamases Streptococcus viridans, Pseudomonas aeruginosa urinary tract infection, present on admission. HISTORY: CVA with dysphagia, neurogenic bladder,, hypertension with hypotension, chronic diastolic CHF, hyperlipidemia, anemia of chronic disease, AFib, hypothyroidism, CAD, and insomnia. HOSPITAL COURSE: A 69-year-old female from [facility], admitted by Dr. Du due to UTI. Urine culture in the [facility]cc showed Pseudomonas aeruginosa and Providencia stuartii. On admission, Urology and ID were consulted. The patient was started on gentamicin. CT of the brain was negative. Chest x-ray was negative. The patient had a right PICC line placed because her urine culture came back positive for ESBL Pseudomonas and Streptococcus. Due to dysphagia, the patient had an MBS, which showed laryngeal penetration and aspiration. The patient had an echo, which showed an EF of 59%. Blood cultures were negative. The patient's antibiotics were changed to Merrem. She will discharge back to [facility] with 5 more days of fluconazole p.o. and Merrem IV. The patient understands instructions and agrees to plan. She will follow up with primary care in 1 to [address] Du for suprapubic catheter exchange in 1 to 2 weeks. Dictated by Marjan Kwok NP MD MEAGHAN Curtis/MODL /[id number]
== END 2020-08-16 16:00 | DRG 698 ==
LOC: ER 17:38 → ERHOLD 17:45 → MED/SURG 20:15 → MED/SURG2 08-08 11:57
PROVIDERS: ADMIT Internal Medicine; ATTEND Internal Medicine
PROC: 0T2BX0Z Change Drainage Device in Bladder, External Approach (ICD-10-PCS; principal; 2020-08-08)
PROC: 02HV33Z Insertion of Infusion Device into Superior Vena Cava, Percutaneous Approach (ICD-10-PCS; 2020-08-10)
PROC: B548ZZA Ultrasonography of Superior Vena Cava, Guidance (ICD-10-PCS; 2020-08-10)
DX: T83.510A Infection and inflammatory reaction due to cystostomy catheter, initial encounter (principal); A41.9 Sepsis, unspecified organism; G93.41 Metabolic encephalopathy; E87.0 Hyperosmolality and hypernatremia; N17.9 Acute kidney failure, unspecified; I50.32 Chronic diastolic (congestive) heart failure; Z16.24 Resistance to multiple antibiotics; N30.00 Acute cystitis without hematuria; I48.20 Chronic atrial fibrillation, unspecified; Z16.12 Extended spectrum beta lactamase (ESBL) resistance; I11.0 Hypertensive heart disease with heart failure; Z87.440 Personal history of urinary (tract) infections; E78.5 Hyperlipidemia, unspecified; Z90.49 Acquired absence of other specified parts of digestive tract; I69.391 Dysphagia following cerebral infarction; N31.9 Neuromuscular dysfunction of bladder, unspecified; I48.91 Unspecified atrial fibrillation; E03.9 Hypothyroidism, unspecified; I25.10 Atherosclerotic heart disease of native coronary artery without angina pectoris; G47.00 Insomnia, unspecified; I95.9 Hypotension, unspecified; B96.5 Pseudomonas (aeruginosa) (mallei) (pseudomallei) as the cause of diseases classified elsewhere; B96.89 Other specified bacterial agents as the cause of diseases classified elsewhere; E86.0 Dehydration; B96.4 Proteus (mirabilis) (morganii) as the cause of diseases classified elsewhere; B95.5 Unspecified streptococcus as the cause of diseases classified elsewhere; E83.39 Other disorders of phosphorus metabolism; D64.9 Anemia, unspecified
CPT/HCPCS: 36415; 36569; 51700; 70450; 71045; 74230; 80048; 80053; 80061; 81001; 82040; 82140; 82550; 82553; 82948; 83036; 83735; 83880; 84100; 84443; 84484; 85025; 85610; 85730; 87040; 87086; 87186; 93306; 96360; 97139; 99251; 99284; J0610; J1450; J1580; J7030; J7050; U0002

== ENCOUNTER 2020-10-16 05:11 | Emergency (ER) | payer MEDICARE, OTHER ==
[~2020-10-16] VITALS: Ht 160 cm; Wt 77.1 kg
--- NOTE | 2020-10-16 05:27 | NUR ---
Called [facility] twice to obtain more information regarding patient. No answer at this time.
--- OUTSIDE RECORDS SUMMARY | 2020-10-16 05:50 | XMS REPORT | Clinical Summary ---
Author Author SARAH [facility] Address Unknown Phone Unavailable Care Team Providers Care Strategic Procurement Manager Name Role Phone Segun Brody Stevestefan PCP Allergies No Known Allergies Medications End Date Status Medication Sig Dispensed Refills Start Date Active dabigatran (PRADAXA) 75 Take by mouth 0 mg Cap 2 (two) times daily. Active atorvastatin (LIPITOR) 40 Take 40 mg by 0 MG tablet mouth daily. Active levothyroxine (SYNTHROID, Take 75 mcg 0 LEVOTHROID) 75 MCG tablet by mouth Every morning on an empty stomach. Active midodrine (PROAMATINE) 5 Take 5 mg by 0 MG tablet mouth 3 (three) times daily. Active metoprolol succinate Take 50 mg by 0 (TOPROL-XL) 50 MG 24 hr mouth daily. tablet Active ferrous gluconate Take 324 mg 0 (FERGON) 324 MG tablet by mouth daily with breakfast. Active acetaminophen (TYLENOL) Place 650 mg 0 650 MG suppository rectally every 4 (four) hours as needed for Fever. Active folic acid (FOLVITE) 1 MG Take 1 mg by 0 tablet mouth daily. 09/03/2020 Discontinued (Stop Taking at Discharge) ondansetron (ZOFRAN) 4 MG Take 4 mg by 0 tablet mouth 2 (two) times daily as needed for Nausea. 09/03/2020 Discontinued (Stop Taking at Discharge) fluconazole (DIFLUCAN) Take 200 mg 0 200 MG tablet by mouth daily. Active Problems Problem Noted Date UTI (urinary tract infection) 08/31/2020 Encounters Care Team Description Date Type Specialty Mohamud Urias MD Heinen, Yasmine Knight, Eliel Nelson MD Suprapubic catheter dysfunction, initial encounter ([facility]) (Primary Dx); Urinary tract infection associated with cystostomy catheter, initial encounter ([facility]) 08/31/2020 Hospital Cardiology - Encounter 09/03/2020 08/31/2020 Orders Only General Internal Me dicine 08/31/2020 Travel after 10/16/2019 Social History Date Tobacco Use Types Packs/Day Years Used Never Assessed Sex Assigned at Date Recorded Not on file Last Filed Vital Signs Reading Time Taken Comments Vital Sign 123/65 09/03/2020 3:48 PM CDT Blood Pressure 64 09/03/2020 3:48 PM CDT Pulse 35.9 C (96.6 F) 09/03/2020 3:48 PM CDT Temperature 19 09/03/2020 3:48 PM CDT Respiratory Rate 99% 09/03/2020 3:48 PM CDT Oxygen Saturation - - Inhaled Oxygen Concentration 53 kg (116 lb 12.8 oz) 08/31/2020 1:25 PM CDT Weight 160 cm (5' 3") 08/31/2020 1:25 PM CDT Height 20.69 08/31/2020 1:25 PM CDT Body Mass Index Plan of Treatment Health Maintenance Due Date Last Done Comments BREAST CANCER SCREENING 1950 COLON CANCER SCREENING 1950 COLONOSCOPY PNEUMOCOCCAL 65+ YRS (1 2015 of 1 - [id number]) MEDICARE ANNUAL WELLNESS 11/26/2016 (YEAR 2 or FIRST YEAR if no IPPE) INFLUENZA VACCINE (#1) 2020 Procedures Comments Procedure Name Priority Date/Time Associated Diag nosis REPORT OF PROCEDURE - 09/02/2020 ENDOSCOPY SCAN 9:42 AM CDT CBC W/PLT COUNT & AUTO Routine 09/01/2020 DIFFERENTIAL 5:20 AM CDT CBC W/PLT COUNT & AUTO Routine 09/01/2020 DIFFERENTIAL 5:20 AM CDT PHOSPHORUS Routine 09/01/2020 5:20 AM CDT MAGNESIUM Routine 09/01/2020 5:20 AM CDT BASIC METABOLIC PANEL (7) Routine 09/01/2020 5:20 AM CDT POCT-GLUCOSE METER Routine 08/31/2020 4:46 PM CDT BLOOD CULTURE Routine 08/31/2020 12:32 PM CDT LACTIC ACID, VENOUS AYLA 08/31/2020 12:31 PM CDT XR CHEST 1 VIEW STAT 08/31/2020 PORTABLE/BEDSIDE 11:18 AM CDT SARS-COV2/RT-PCR ([facility] & STAT 08/31/2020 REF LABS) 9:32 AM CDT BLOOD CULTURE Routine 08/31/2020 9:32 AM CDT ED ECG INTERPRETATION Routine 08/31/2020 8:[address] ABDOMEN/PELVIS WITH IV STAT 08/31/2020 CONTRAST 8:36 AM CDT URINALYSIS W/ REFLEX STAT 08/31/2020 URINE CULTURE 4:26 AM CDT URINE CULTURE STAT 08/31/2020 4:26 AM CDT CBC W/PLT COUNT & AUTO STAT 08/31/2020 DIFFERENTIAL 4:17 AM CDT C-REACTIVE PROTEIN STAT 08/31/2020 4:17 AM CDT HEPATIC FUNCTION PANEL STAT 08/31/2020 4:17 AM CDT BASIC METABOLIC PANEL (7) STAT 08/31/2020 4:17 AM CDT CBC W/PLT COUNT & AUTO STAT 08/31/2020 DIFFERENTIAL 4:17 AM CDT ECG 12-LEAD Routine 08/31/2020 2:32 AM CDT ECG 12-LEAD Routine 08/31/2020 2:32 AM CDT Procedure Note - Interface, External Ris In - 08/31/2020 3:51 AM CDT Ventricula r Rate 49 BPM Atrial Rate 49 BPM P-R Interval 148 ms QRS Duration 82 ms Q-T Interval 512 ms QTC Calculatio n(Bazett) 462 ms P [place] 63 degrees R [place]rex[place] 53 degrees T [place] 46 degrees Sinus bradycardi a with Premature atrial complexes Otherwise normal ECG No previous ECGs available after 10/16/2019 Results * EKG-SCANNED (09/02/2020 9:42 AM CDT) Narrative Performed At This result has an attachment that is n ot available. * CBC with platelet count + automated diff (09/01/2020 5:20 AM CDT) Only the most recent of 2 results within the time period is included. WBC 4.7 3.5 - 10.5 K/L [facility] RBC 3.69 (L) 3.93 - 5.22 M/L [facility] Hemoglobin 10.2 (L) 11.2 - 15.7 GM/DL [facility] Hematocrit 35.5 34.1 - 44.9 % [facility] MCV 96.2 (H) 79.4 - 94.[address] [facility] MCH 27.6 25.6 - 32.[address] [facility] MCHC 28.7 (L) 32.2 - 35.5 GM/DL [facility] RDW 14.7 (H) 11.7 - 14.4 % [facility] Platelets 198 150 - 450 K/CU MM [facility] MPV 10.3 9.4 - 12.[address] [facility] nRBC 0 0 - 0 /[address] [facility] % Neutros 67 % [facility] % Lymphs 17 % [facility] % Monos 8 % [facility] % Eos 5 % [facility] % Baso 2 % [facility] # Neutros 3.18 1.56 - 6.13 K/L [facility] # Lymphs 0.81 (L) 1.18 - 3.74 K/L [facility] # Monos 0.36 0.24 - 0.36 K/L [facility] # Eos 0.25 0.04 - 0.36 K/L [facility] # Baso 0.07 0.01 - 0.08 K/L [facility] Immature 1 0 - 1 % [facility] Specimen Blood Performing Organization Address [facility] Ph one [place] [phone] [place] [address] * Phosphorus (09/01/2020 5:20 AM CDT) Phosphorus 3.3 2.3 - 4.7 mg/dL [facility] Specimen Blood Narrative Performed At Uke Operator ID - ANGEL Rivera [facility] Performing Organization Address City/[facility] Ph one Number [place] [phone] [place] [address] * Magnesium (09/01/2020 5:20 AM CDT) Magnesium 1.7 1.6 - 2.6 mg/dL [facility] Specimen Blood Narrative Performed At Uke Operator ID - ANGEL Rivera [facility] Performing Organization Address City/[facility] Ph one [place] [phone] [place] [address] * Basic metabolic panel (09/01/2020 5:20 AM CDT) Only the most recent of 2 results within the time period is included. Sodium 146 (H) 136 - 145 meq/L [facility] Potassium 4.4 3.5 - 5.1 meq/L [facility] Chloride 113 (H) 98 - 107 meq/L [facility] CO2 26 22 - 29 meq/L [facility] BUN 21 7 - 21 mg/dL [facility] Creatinine 1.13 0.57 - 1.25 mg/dL [facility] Glucose 71 70 - 105 mg/dL [facility] Calcium 7.2 (L) 8.4 - 10.2 mg/dL [facility] EGFR 48Comment: ESTIMATED GFR IS mL/min/1.73 sq [facility] NOT ACCURATE CREATININE [facility] CLEARANCE IN PREDICTING MEDICAL CENTER GLOMERULAR FILTRATION RATE. ESTIMATED GFR IS NOT APPLICABLE FOR DIALYSIS PATIENTS. Specimen Blood Narrative Performed At Uke Operator ID - ANGEL Rivera [facility] Performing Organization Address [facility] one [address] [facility] [place] * POC-Glucose meter (08/31/2020 4:46 PM CDT) POC-Glucose 52 (L)Comment: : Notified 70 - 110 mg/dL [facility] Meter RN/MD: TESTED AT [address], [address]: MEDICAL CENTER Uke Operator/Anchor Tack Puller ID = [id number] for Milagros Dennison Specimen Blood Performing Organization Address [facility] one [address] [facility] [place] * Blood Culture - Routine (Right Venipuncture) (08/31/2020 12:32 PM CDT) Only the most recent of 2 results within the time period is included. Result No growth in [address] [facility] Specimen Blood - Entire right upper arm (body structure) Performing Organization Address [facility] one [place] [address] [place], [place] [address] [facility] * Lactic acid, venous (08/31/2020 12:31 PM CDT) Lactate, Venous 0.69Comment: Specimen slightly 0.50 - 2.20 mm ol/L [facility] hemolyzed [facility] Specimen Blood Narrative Performed At Uke Operator ID - HALEY Daniels [facility] Performing Organization Address City/State[facility] Ph one Number [facility] [address] [place], [place] [address] [facility] * XR chest 1 view portable / bedside (08/31/2020 11:18 AM CDT) Specimen Narrative Performed At FINAL REPORT [facility] RAD, CHEST, 1 VIEW, NON DEPT INDICATION: picc line COMPARISON: None FINDINGS: Portable frontal view of the chest. IMPRESSION: Support Lines: Right PICC terminates ov er the superior vena cava. Lungs and pleura: Lungs are clear. No p neumothorax. Heart and mediastinum: Unremarkable con tours. Additional findings: None. Signed: JR Marks Robert MD Report Verified Date/Time: 08/31/2020 11:28:27 Reading Location: [address] Transiti onal Reading Room Procedure Note Interface, External Ris In - 08/31/2020 11:31 AM CDT FINAL REPORT RAD, CHEST, 1 VIEW, NON DEPT INDICATION: picc line COMPARISON: None FINDINGS: Portable frontal view of the chest. IMPRESSION: Support Lines: Right PICC terminates over the superior vena cava. Lungs and pleura: Lungs are clear. No pneumothorax. Heart and mediastinum: Unremarkable contours. Additional findings: None. Signed: JR Marks Robert MD Report Verified Date/Time: 08/31/2020 11:28:27 Reading Location: [address] Transitional Reading Room Performing Organization Address City/State/Zipcode Ph one Number [facility] * SARS-CoV2/RT-PCR (Asymptomatic ONLY) (08/31/2020 9:32 AM CDT) SARS-COV2/RT-PC Negative Not Detected, [facility] R Negative, See [facility] external report for MEDICAL CENTER linked test SARS-COV-2 [facility] PERFORMING LAB [facility] Specimen Other - Nasopharyngeal wall structure (body structure) Narrative Performed At Negative result for this test determine s that SARS-CoV-2 RNA was not present in [facility] the specimen above the Limit of Detecti on (LOD). However, Negative results do [facility] not preclude SARS-CoV-2 infection and s hould not be used as the sole basis for treatment or patient management decisio ns. Negative results must be combined with clinical observations, patient his tory, and epidemiological information. A false negative result may occur if a sp ecimen is improperly collected, transported or handled. A false negat susy result should be considered if patient's recent exposures or clinical presentation indicate that COVID-19 (SARS-CoV-2) is likely and diagnostic t ests for other causes of illness are negative. Re-testing should be consid ered in cases of suspected false negatives. The limit of detection for this assay i s 800 copies/mL. This SARS CoV-2 test is a real-time RT- PCR test intended for the qualitative detection of nucleic acid from SARS-CoV -2 in a nasopharyngeal swab specimen collected from individuals suspected of COVID-19 by their healthcare provider. This test has not been Food and Drug Ad ministration (FDA) cleared or approved. This is a modified version of an appr ann marie Emergency Use Authorization (EUA) and is in the process of review by the FDA. Once authorized by the FDA, the issued EUA will be effective until the declaration that circumstances exist justifying the authorization of the alee rgency use of in vitro diagnostic tests for detection and/or diagnosis of COVID -19 is terminated under Section 564(b)(2) of the Act or the EUA is revoked under Section 564(g) of the Act. Fact Sheet for Healthcare Providers: https://www.[employer]/sites/default/files/product/documents/Fact_Sheet_HC_Provi bmli_Kthi_EHCJ-FyP-6.pdf Fact Sheet for Healthcare Patients: https://www.[employer]/sites/default/files/product/documents/Fact_Sheet_Patients _Dpuq_MOGU-WvW-6.pdf Performing Laboratory: [address] [place] [address] Performing Organization Address City/State/Zipcode Ph one Number [facility] [address] [place] [address] [address] [facility] * ECG/EKG Interpretation (08/31/2020 8:46 AM CDT) Narrative Performed At Mohamud Urias MD 2019 8:59 AM ECG/EKG Interpretation Date/Time: 08/31/2020 8:55 AM Performed by: Mohamud Urias MD Authorized by: Mohamud Urias MD The ECG was interpreted by ED physician . The ECG is interpreted as sinus bradycardia. Ectopy noted: atrial rajendra ture contractions. Rate is bradycardic. Heart rate is [address] segments normal. T waves normal. Cli nical Impression: non-specific ECGECG reviewed and does not meet STEMI criteria. Patient tolerance: Patient tolerated the procedure well wi th no immediate complications * CT abdomen pelvis with IV contrast (08/31/2020 8:36 AM CDT) Specimen Narrative Performed At FINAL REPORT [place] CT abdomen and pelvis with contrast History: Acute abdominal pain Comparison: none Technique: serial axial imaging was per formed following up to 100cc of non ionic iodinated intravenous cont rast as per departmental protocol. Multiplanar images are sosa nstructed and reviewed when indicated. This CT examination is performed using one or more of the following dose reduction techniques: Automated exposure control, adjustment of the mA and /or kV according to patient size, and/or use of iterativ e reconstruction technique. Findings: Small pericardial and bilateral pleural effusions. Unremarkable appearance of pancreas and spleen. Unremarkable appearance of the liver. T he patient is status post cholecystectomy. Bilateral ureteral stents as well as a suprapubic bladder catheter appear in satisfactory position. Modera te persistent right hydronephrosis. Bilateral nonobstructin g renal calculi measure up to 14 mm in size within the right kidney a nd 6 mm in size within the left kidney. There is mild increased en hancement of the right renal collecting system. No ureteral calculus is seen. . No small or large bowel obstruction. No apparent bowel wall thickening. Moderate sigmoid diverticul osis, without diverticulitis. No findings to indicate acute appendici tis. No free fluid or lymphadenopathy. No abdominal aortic aneurysm. No aggressive osseous lesion. Impression: 1. Bilateral ureteral stents and suprap ubic bladder catheter in satisfactory positions. 2. Moderate persistent right hydronephr osis. 3. There is mild increased enhancement of the right renal collecting system, which could relate to urinary t ract infection. Suggest clinical correlation. 4. Bilateral nonobstructing renal calcu li, measuring up to 14 mm in size within the right kidney and 6 mm i n size within the left kidney. 5. Moderate sigmoid diverticulosis, wit hout diverticulitis. Signed: Dante Carlos MD Report Verified Date/Time: 08/31/2020 09:02:57 Reading Location: [address] Procedure Note Interface, External Ris In - 08/31/2020 9:05 AM CDT FINAL REPORT CT abdomen and pelvis with contrast History: Acute abdominal pain Comparison: none Technique: serial axial imaging was performed following up to 100cc of non ionic iodinated intravenous contrast as per departmental protocol. Multiplanar images are reconstructed and reviewed when indicated. This CT examination is performed using one or more of the following dose reduction techniques: Automated exposure control, adjustment of the mA and /or kV according to patient size, and/or use of iterative reconstruction technique. Findings: Small pericardial and bilateral pleural effusions. Unremarkable appearance of pancreas and spleen. Unremarkable appearance of the liver. The patient is status post cholecystectomy. Bilateral ureteral stents as well as a suprapubic bladder catheter appear in satisfactory position. Moderate persistent right hydronephrosis. Bilateral nonobstructing renal calculi measure up to 14 mm in size within the right kidney an d 6 mm in size within the left kidney. There is mild increased enhancement of the right renal collecting system. No ureteral calculus is seen. . No small or large bowel obstruction. No apparent bowel wall thickening. Moderate sigmoid diverticulosis, without diverticulitis. No findings to indicate acute appendicitis. No free fluid or lymphadenopathy. No abdominal aortic aneurysm. No aggressive osseous lesion. Impression: 1. Bilateral ureteral stents and suprapu bic bladder catheter in satisfactory positions. 2. Moderate persistent right hydronephro sis. 3. There is mild increased enhancement o f the right renal collecting system, which could relate to urinary tract infection. Suggest clinical correlation. 4. Bilateral nonobstructing renal calcul i, measuring up to 14 mm in size within the right kidney and 6 mm in size within the left kidney. 5. Moderate sigmoid diverticulosis, with out diverticulitis. Signed: Dante Carlos MD Report Verified Date/Time: 08/31/2020 09:02:57 Reading Location: [address] Reading Room Performing Organization Address City/State/Zipcode Ph one Number GE [facility] * Urinalysis w/Microscopic + Reflex to Culture (08/31/2020 4:26 AM CDT) Color, UA [place] [facility] Clarity, UA Cloudy [facility] Specific 1.013 1.001 - 1.035 [facility] [place] [facility] pH, UA 6.5 5.0 - 8.0 [facility] Protein, UA 100 mg/dL (A) Negative [facility] Glucose, UA Negative Negative [facility] Ketones, UA Negative Negative [facility] Bilirubin, UA Negative Negative [facility] Blood, UA Large (A) Negative [facility] Nitrite, UA Positive (A) Negative [facility] Leukocytes, UA Large (A) Negative [facility] Urobilinogen, 0.2 0.2 - 1.0 mg/dL [facility] RBC, UA 1,201 /HPF [facility] WBC, UA 1,613 /HPF [facility] Bacteria, UA Many [facility] Mucus Few [facility] Squam Epithel, 28 /HPF [facility] Specimen Source [facility] Specimen Urine Narrative Performed At Uke Operator ID - tech [facility] Performing Organization Address City/State/Zipcode Ph one Number [facility] [address] [place], [place] [address] MEDICAL CENTER * Urine culture (08/31/2020 4:26 AM CDT) Result >100,000 col/mL Pseudomonas [facility] aeruginosa (A) [facility] Result >100,000 col/mL Providencia [facility] stuartii (A) [facility] Specimen Urine Antibiotic Method Susceptibility Organism Amikacin <=8: Susceptible Pseudomonas aeruginosa Aztreonam >16: Resistant Pseudomonas aeruginosa Cefepime 32: Resistant Pseudomonas aeruginosa Ceftazidime >16: Resistant Pseudomonas aeruginosa Ciprofloxacin >2: Resistant Pseudomonas aeruginosa Gentamicin <=2: Susceptible Pseudomonas aeruginosa Imipenem 8: Resistant Pseudomonas aeruginosa Levofloxacin >8: Resistant Pseudomonas aeruginosa Meropenem 8: Resistant Pseudomonas aeruginosa Piperacillin >64: Resistant Pseudomonas aeruginosa Piperacillin + Tazobactam >128: Resistant Pseudomonas aeruginosa Tobramycin <=2: Susceptible Pseudomonas aeruginosa Amikacin <=2: Susceptible Providencia stuartii Ampicillin + Sulbactam >=32: Resistant Providencia stuartii Aztreonam <=1: Susceptible Providencia stuartii Cefepime <=1: Susceptible Providencia stuartii Cefoxitin <=4: Susceptible Providencia stuartii Ceftazidime <=1: Susceptible Providencia stuartii Ceftriaxone <=1: Susceptible Providencia stuartii Ertapenem <=0.5: Susceptible Providencia stuartii Gentamicin Resistant Providencia stuartii Levofloxacin >=8: Resistant Providencia stuartii Meropenem 1: Susceptible Providencia stuartii Nitrofurantoin 128: Resistant Providencia stuartii Piperacillin + Tazobactam <=4: Susceptible Providencia stuartii Tetracycline >=16: Resistant Providencia stuartii Tobramycin Resistant Providencia stuartii Trimethoprim + Sulfamethoxazole 40: Susceptible Providencia stuartii Performing Organization Address [facility] one [place] [address] [facility] * C-Reactive Protein (08/31/2020 4:17 AM CDT) CRP 6.22 (H) 0.00 - 0.50 mg/dL [facility] Specimen Blood Narrative Performed At Uke Operator ID - [facility] Performing Organization Address [facility] one [place] [address] [facility] * Hepatic function panel (08/31/2020 4:17 AM CDT) Protein, Total 4.9 (L) 6.0 - 8.3 gm/dL [facility] Albumin 1.7 (L) 3.5 - 5.0 g/dL [facility] Total Bilirubin 0.4 0.2 - 1.2 mg/dL [facility] Bilirubin, 0.3 0.1 - 0.5 mg/dL [facility] Alkaline 112 40 - 150 U/L [facility] AST 11 5 - 34 U/L [facility] ALT <6 (L) 6 - 55 U/L [facility] Specimen Blood Narrative Performed At Uke Operator ID - [facility] Performing Organization Address [facility] one [place] [address] [facility] * ECG 12 lead (08/31/2020 2:32 AM CDT) Specimen Narrative Performed At Ventricular Rate 49 BPM GE MUSE Atrial Rate 49 BPM P-R Interval 148 ms QRS Duration 82 ms Q-T Interval 512 ms QTC Calculation(Bazett) 462 ms P [place] 63 degrees R [place] 53 degrees T [place] 46 degrees Sinus bradycardia with Premature atrial complexes Prolonged QT Otherwise normal ECG No previous ECGs available Confirmed by Festus Rausch ([id number]) on 08/31/2020 3:08:31 PM Procedure Note Interface, External Ris In - 08/31/2020 3:08 PM CDT Ventricular Rate 49 BPM Atrial Rate 49 BPM P-R Interval 148 ms QRS Duration 82 ms Q-T Interval 512 ms QTC Calculation(Bazett) 462 ms P [place] 63 degrees R [place] 53 degrees T [place] 46 degrees Sinus bradycardia with Premature atrial complexes Prolonged QT Otherwise normal ECG No previous ECGs available Confirmed by Festus Rausch [id number]) on 08/31/2020 3:08:31 PM Performing Organization Address City/State/Zipcode Ph one Number GE MUSE after 10/16/2019 Additional Health Concerns Last Indicated Resolved Time Infection Onset Date 09/04/2020 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
--- OUTSIDE RECORDS SUMMARY | 2020-10-16 05:52 | XMS REPORT | Continuity of Care Document ---
Author Author [facility] t Organization [facility] Address [address] [place] [address] Phone Unavailable Care Team Providers Care Assistant Professor Surgical Technology Name Role Phone MD Miguel REAUL PCP Rose Mary URIAS Attphys Unavailable Adonay BRADFORD, Rose Mary Mallory Attphys [phone] Antonia Hernadez MD Attphys Laina BRADFORD, Eliel Attphys JUANY AWAD Attphys Unavailable ARSLAN GRIGSBY Attphys Unavailable Antonia HERNADEZ Admphys Unavailable JUANY AWAD Admmichael Unavailable Payers Payer Name Policy Type Policy Number Effective Date Expiration Date S vania MEDICAREMEDICARE A [id number] 2015-PresentMedicare [id number] 2015 00:00:00 [facility] [id number] 2018 00:00 :00 [facility] Medicare A & B [id number] 2015 00:00:00 [facility] TMHP NA 2015 00:00:[address] [facility] Problems Condition Name Condition Details Condition Category Status Onset Date Resolution Date Last Treatment Date Treating Clinician Comments Source UTI (urinary tract infection) UTI (urinary tract infection) Disease Active 2020-08-31 00:00:00 [facility] Weakness Problem Active [facility] Dementia Problem Active [facility] Pseudomonas urinary tract infection Problem Active [facility] Altered mental status Problem Active [facility] Allergies, Adverse Reactions, Alerts Allergy Name Allergy Type Status Severity Reaction(s) Onset Date Inacti ve Date Treating Clinician Comments Source No Known Allergies DA Active U 2020-03-24 00:00:00 [facility] No Known Allergies DA Active U 2019-06-26 00:00:00 [facility] No Known Allergies DA Active U 2019-05-04 00:00:00 [facility] No Known Allergies DA Active U 2019-03-07 00:00:00 [facility] No Known Allergies DA Active U 2017-11-26 00:00:00 [facility] Social History Social Habit Start Date Stop Date Quantity Comments Source Sex Assigned At [facility] Medications Ordered Medication Name Filled Medication Name Start Date Stop Da te Current Medication? Ordering Clinician Indication Dosage Frequency Signature (SIG) Comments Components Source dabigatran (PRADAXA) 75 mg Cap 2020-09-03 17:58:49 Yes Q.5D Take by mouth 2 (two) times daily. [facility] atorvastatin (LIPITOR) 40 MG tablet 2020-09-03 17:58:49 Yes 40mg QD Take 40 mg by mouth daily. [facility] levothyroxine (SYNTHROID, LEVOTHROID) 75 MCG tablet 2019-11 17:58:49 Yes 75ug Take 75 mcg by mouth Every morning on an empty stomach. [facility] midodrine (PROAMATINE) 5 MG tablet 2020-09-03 17:58:49 Y es 5mg Q.[id number] Take 5 mg by mouth 3 (three) times daily. [facility] metoprolol succinate (TOPROL-XL) 50 MG 24 hr tablet 2019-11 0 17:58:49 Yes 50mg QD Take 50 mg by mouth daily. [facility] ferrous gluconate (FERGON) 324 MG tablet 2020-09-03 17:58:49 Yes 324mg Take 324 mg by mouth daily with breakfast. [facility] acetaminophen (TYLENOL) 650 MG suppository 2020-09-03 17:58:[address] 650 mg rectally every 4 (four) hours as needed f or Fever. [facility] folic acid (FOLVITE) 1 MG tablet 2020-09-03 17:58:49 Yes 1mg QD Take 1 mg by mouth daily. [facility] ondansetron (ZOFRAN) 4 MG tablet 2020-09-03 10:44:48 2020-08 00:00:00 No 4mg Take 4 mg by mouth 2 (two) times daily as neede d for Nausea. [facility] fluconazole (DIFLUCAN) 200 MG tablet 2020-09-03 10:44: 48 2020-09-03 00:00:00 No 200mg QD Take 200 mg by mouth daily. [facility] Acetaminophen Acetaminophen Yes 650 As Needed [facility] Aspirin Aspirin Yes 1 Daily [facility] Atorvastatin Calcium Atorvastatin Calcium Yes 40 Bedtime [facility] [place] Carolyn Yes 1 Daily [facility] Dabigatran Etexilate Mesylate (Pradaxa) 75 Mg CAPSULE Dabigatran Etexilate Mesylate (Pradaxa) 75 Mg CAPSULE Yes 1 Twice A Day [facility] Docusate Sodium Docusate Sodium Yes 100 Daily [facility] Ferrous Sulfate Ferrous Sulfate Yes 1 Twice A Day [facility] Lactulose Lactulose Yes 30 Daily [facility] Levothyroxine Sodium Levothyroxine Sodium Yes 75 Daily [facility] Melatonin Melatonin Yes 5 As Needed [facility] Metoprolol Tartrate Metoprolol Tartrate Yes 75 Every 12 Hours [facility] Midodrine Hcl Midodrine Hcl Yes 5 Twice A Day [facility] Ondansetron Hcl (Zofran) 8 Mg TABLET Ondansetron Hcl (Zofran) 8 Mg TABLET Yes 4 As Needed [facility] Folic Acid/Cyanocob/Pyridoxine (Nephro-Annie Tablet) 1 Ea TAB Folic Acid/Cyanocob/Pyridoxine (Nephro-Annie Tablet) 1 Ea TAB 2020-03-25 9 00:00:00 No 1 Daily [facility] Ciprofloxacin Hcl (Cipro) 500 Mg TABLET Ciprofloxacin Hcl (C ipro) 500 Mg TABLET 2020-04-11 00:00:00 No 500 Every 12 Hours [facility] Vital Signs Vital Name Observation Time Observation Value Comments Source Systolic blood pressure 2020-09-03 15:48:00 123 mm[Hg] [facility] Diastolic blood pressure 2020-09-03 15:48:00 65 mm[Hg] [facility] Heart rate 2020-09-03 15:48:00 64 /min [facility] Body temperature 2020-09-03 15:48:00 35.89 Margarita [facility] Respiratory rate 2020-09-03 15:48:00 19 /min [facility] Oxygen saturation in Arterial blood by Pulse oximetry 2019-11 15:48:00 99 /min [facility] Body height 2020-08-31 13:25:00 160 cm [facility] Body weight 2020-08-31 13:25:00 52.98 kg [facility] BMI 2020-08-31 13:25:00 20.69 kg/m2 [facility] Body Temperature 2020-08-16 12:00:00 97.4 [degF] [facility] BMI (Body Mass Index) 2020-08-07 20:27:00 33.7 kg/m2 [facility] Weight 2020-08-07 17:17:00 190 [lb_av] [facility] Body Temperature 2020-04-11 16:01:00 98.3 [degF] [facility] BMI (Body Mass Index) 2020-04-10 17:10:00 33.7 kg/m2 [facility] Weight 2020-04-10 13:37:00 190 [lb_av] [facility] Procedures Procedure Date / Time Performed Performing Clinician [facility] REPORT OF PROCEDURE - ENDOSCOPY SCAN 2020-09-02 09:42:00 Pro vider, Default Scanning [facility] BASIC METABOLIC PANEL (7) 2020-09-01 05:20:00 Yasmine Hernadez [facility] MAGNESIUM 2020-09-01 05:20:[address] [facility] PHOSPHORUS 2020-09-01 05:20:[address] [facility] CBC W/PLT COUNT & AUTO DIFFERENTIAL 2020-09-01 05:20:00 Yasmine Hernadez [facility] POCT-GLUCOSE METER 2020-08-31 16:46:00 Yasmine Hernadez [facility] BLOOD CULTURE 2020-08-31 12:32:[address] [facility] LACTIC ACID, VENOUS 2020-08-31 12:31:00 Yasmine Hernadez [facility] XR CHEST 1 VIEW PORTABLE/BEDSIDE 2020-08-31 11:18:00 Héctor Hernadez [facility] BLOOD CULTURE 2020-08-31 09:32:[address] [facility] SARS-COV2/RT-PCR ([facility]) 2020-08-31 09:32:00 Mohamud Byrne [facility] ED ECG INTERPRETATION 2020-08-31 08:46:24 Mohamud Urais [facility] CT ABDOMEN/PELVIS WITH IV CONTRAST 2020-08-31 08:36:00 Mohamud Byrne [facility] URINE CULTURE 2020-08-31 04:26:00 Mohamud Urias [facility] URINALYSIS W/ REFLEX URINE CULTURE 2020-08-31 04:26:00 Mohamud Byrne [facility] BASIC METABOLIC PANEL (7) 2020-08-31 04:17:00 Margareth Urias [facility] HEPATIC FUNCTION PANEL 2020-08-31 04:17:00 Mohamud Urias [facility] C-REACTIVE PROTEIN 2020-08-31 04:17:00 Mohamud Urias [facility] CBC W/PLT COUNT & AUTO DIFFERENTIAL 2020-08-31 04:17:00 Mohamud Morris [facility] ECG 12-LEAD 2020-08-31 02:32:13 Unknown, Hl7 Doctor [facility] Computed tomography of brain without radiopaque contrast 2020-07 00:00:00 [facility] CHANGE OF BLADDER TUBE 2020-04-13 00:00:[address] [facility] CYSTOSCOPY AND TREATMENT 2020-04-13 00:00:00 [facility] CYSTO/URETERO W/LITHOTRIPSY 2020-04-13 00:00:[address] [facility] [address] of abdomen and pelvis without contrast 2020-04-10 00:00:00 [facility] Plan of Care Planned Activity Planned Date Details Comments Source Future Scheduled Test 2020-07-26 00:00:00 INFLUENZA VACCINE (#1) [code = INFLUENZA VACCINE (#1)] [facility] Future Scheduled Test 2016-11-26 00:00:00 MEDICARE ANNUAL WE LLNESS (YEAR 2 or FIRST YEAR if no IPPE) [code = MEDICARE ANNUAL WELLNESS (YEAR 2 or FIRST YEAR if no IPPE)] [facility] Future Scheduled Test 2015 00:00:00 PNEUMOCOCCAL 65+ Y RS (1 of 1 - [id number] PCV13) [code = PNEUMOCOCCAL 65+ YRS (1 of 1 - [id number] PCV13)] [facility] Future Scheduled Test 1950 00:00:00 Screening for dorys gnant neoplasm of breast (procedure) [code = 573447267] [facility] Future Scheduled Test 1950 00:00:00 Screening for dorys gnant neoplasm of colon (procedure) [code = 680127842] [facility] Encounters Start Date/Time End Date/Time Encounter Type Admission Type [facility] Care Department Encounter ID Source 2020-08-07 17:45:00 2020-08-16 16:00:00 Discharged Inpatient 1 JUANY AWAD [facility] [id number] [facility] 2020-04-13 07:11:00 2020-04-13 07:11:00 Registered Surgical Day Car e 3 ARSLAN GRIGSBY [facility] [id number] [facility] 2020-04-10 15:47:00 2020-04-11 18:48:00 Discharged Inpatient 1 JUANY AWAD [facility] [id number] [facility] Results Test Description Test Time Test Comments Results Result Comments Source Blood Culture - Routine (Right Venipuncture) 2020-09-05 15:0 0:00 Test Item Result (test code = 6463-4) No growth in 5 days [facility] [id number] 15:00:00* Test Item Value Reference Range Interpretation Comments CULTURE (BEAKER) (test code = 1095) No growth in 5 days BLOOD [id number] 15:00:00* Test Item Value Reference Range Interpretation Comments CULTURE (BEAKER) (test code = 1095) No growth in 5 days Basic metabolic [id number] 06:23:00* Test Item Value Reference Range Interpretation Comments Sodium (test code = 2951-2) 146 meq/L 136-145 H Potassium (test code = 2823-3) 4.4 meq/L 3.5-5.1 Chloride (test code = 2075-0) 113 meq/L 98-107 H CO2 (test code = 8-9) 26 meq/L 22-29 BUN (test code = 3094-0) 21 mg/dL 7-21 Creatinine (test code = 2160-0) 1.13 mg/dL 0.57-1.25 Glucose (test code = 2345-7) 71 mg/dL 70-105 Calcium (test code = 38948-4) 7.2 mg/dL 8.4-10.2 L EGFR (test code = 89243-0) 48 mL/min/1.73 sq m ESTIMATED GFR IS NOT ACCURATE CREATININE CLEARANCE IN PREDICTING GLOMERULAR FILTRATION RATE. ESTIMATED GFR IS NOT APPLICABLE FOR DIALYSIS PATIENTS. DARWIN (test code = DARWIN) Pole Setter ID - ANGEL M Lab Interpretation (test code = 12622-1) [facility] [id number] 06:23:00* Test Item Value Reference Range Interpretation Comments SODIUM (BEAKER) (test code = 381) 146 meq/L 136-145 H POTASSIUM (BEAKER) (test code = 379) 4.4 meq/L 3.5-5.1 CHLORIDE (BEAKER) (test code = 382) 113 meq/L 98-107 H CO2 (BEAKER) (test code = 355) 26 meq/L 22-29 BLOOD UREA NITROGEN (BEAKER) (test code = 354) 21 mg/dL 7-21 CREATININE (BEAKER) (test code = 358) 1.13 mg/dL 0.57-1.25 GLUCOSE RANDOM (BEAKER) (test code = 652) 71 mg/dL 70-105 CALCIUM (BEAKER) (test code = 697) 7.2 mg/dL 8.4-10.2 L EGFR (BEAKER) (test code = 1092) 48 mL/min/1.73 sq m ESTIMATED GFR IS NOT ACCURATE CREATININE CLEARANCE IN PREDICTING GLOMERULAR FILTRATION RATE. ESTIMATED GFR IS NOT APPLICABLE FOR DIALYSIS PATIENTS. Pole Setter ID - ANGEL [id number] 06:15:00* Test Item Value Reference Range Interpretation Comments Magnesium (test code = 24175-3) 1.7 mg/dL 1.6-2.6 DARWIN (test code = DARWIN) Pole Setter ID - ANGEL Rivera Lab Interpretation (test code = 24781-7) [facility] 06:15:00* Test Item Value Reference Range Interpretation Comments Phosphorus (test code = 2777-1) 3.3 mg/dL 2.3-4.7 DARWIN (test code = DARWIN) Pole Setter ID - ANGEL M Lab Interpretation (test code = 42314-2) [facility]2020-10-08 06:15:00* Test Item Value Reference Range Interpretation Comments PHOSPHORUS (BEAKER) (test code = 604) 3.3 mg/dL 2.3-4.7 Pole Setter ID - ANGEL [id number] 06:15:00* Test Item Value Reference Range Interpretation Comments MAGNESIUM (BEAKER) (test code = 627) 1.7 mg/dL 1.6-2.6 Pole Setter ID - ANGEL MCBC with platelet count + automated [id number] 05:47:00 * Test Item Value Reference Range Interpretation Comments WBC (test code = 6690-2) 4.7 3.5- 10.5 K/L RBC (test code = 789-8) 3.69 3.93- 5.22 M/L L MCHC (test code = 786-4) 28.7 32.2- 35.5 GM/DL L Hematocrit (test code = 4544-3) 35.5 % 34.1-44.9 MCV (test code = 787-2) 96.2 fL 79.4-94.8 H MCH (test code = 785-6) 27.6 pg 25.6-32.2 RDW (test code = 788-0) 14.7 % 11.7-14.4 H Platelets (test code = 777-3) 198 150- 450 K/CU MM MPV (test code = 36726-1) 10.3 fL 9.4-12.3 nRBC (test code = 413) 0 0- 0 /100 WBC % Neutros (test code = 429) 67 % % Lymphs (test code = 430) 17 % % Monos (test code = 431) 8 % % Eos (test code = 432) 5 % % Baso (test code = 437) 2 % # Neutros (test code = 670) 3.18 1.56- 6.13 K/L # Lymphs (test code = 414) 0.81 1.18- 3.74 K/L L # Monos (test code = 415) 0.36 0.24- 0.36 K/L # Eos (test code = 416) 0.25 0.04- 0.36 K/L # Baso (test code = 417) 0.07 0.01- 0.08 K/L Immature Granulocytes-Relative (test code = 2801) 1 % 0-1 Lab Interpretation (test code = 98653-0) Abnormal [facility] W/PLT COUNT & AUTO [id number] 05:47:00* Test Item Value Reference Range Interpretation Comments WHITE BLOOD CELL COUNT (BEAKER) (test code = 775) 4.7 K/ L 3.5- 10.5 RED BLOOD CELL COUNT (BEAKER) (test code = 761) 3.69 M/ L 3.93-5 .22 L HEMOGLOBIN (BEAKER) (test code = 410) 10.2 GM/DL 11.2-15.7 L HEMATOCRIT (BEAKER) (test code = 411) 35.5 % 34.1-44.9 MEAN CORPUSCULAR VOLUME (BEAKER) (test code = 753) 96.2 fL 79. 4-94.8 H MEAN CORPUSCULAR HEMOGLOBIN (BEAKER) (test code = 751) 27.6 pg 25.6-32.2 MEAN CORPUSCULAR HEMOGLOBIN CONC (BEAKER) (test code = 752) 28.7 GM/DL 32.2-35.5 L RED CELL DISTRIBUTION WIDTH (BEAKER) (test code = 412) 14.7 % 11.7-14.4 H PLATELET COUNT (BEAKER) (test code = 756) 198 K/CU MM 150-450 MEAN PLATELET VOLUME (BEAKER) (test code = 754) 10.3 fL 9.4-12 .3 NUCLEATED RED BLOOD CELLS (BEAKER) (test code = 413) 0 /100 WBC 0 -0 NEUTROPHILS RELATIVE PERCENT (BEAKER) (test code = 429) 67 % LYMPHOCYTES RELATIVE PERCENT (BEAKER) (test code = 430) 17 % MONOCYTES RELATIVE PERCENT (BEAKER) (test code = 431) 8 % EOSINOPHILS RELATIVE PERCENT (BEAKER) (test code = 432) 5 % BASOPHILS RELATIVE PERCENT (BEAKER) (test code = 437) 2 % NEUTROPHILS ABSOLUTE COUNT (BEAKER) (test code = 670) 3.18 K/ L 1.56-6.13 LYMPHOCYTES ABSOLUTE COUNT (BEAKER) (test code = 414) 0.81 K/ L 1.18-3.74 L MONOCYTES ABSOLUTE COUNT (BEAKER) (test code = 415) 0.36 K/ L 0. 24-0.36 EOSINOPHILS ABSOLUTE COUNT (BEAKER) (test code = 416) 0.25 K/ L 0.04-0.36 BASOPHILS ABSOLUTE COUNT (BEAKER) (test code = 417) 0.07 K/ L 0. 01-0.08 IMMATURE GRANULOCYTES-RELATIVE PERCENT (BEAKER) (test code = 2801) 1 % 0-1 POC-Glucose [id number] 17:49:00* Test Item Value Reference Range Interpretation Comments POC-Glucose Meter (test code = 1538) 52 mg/dL 70-110 L : Notified RN/MD: TESTED AT [address], [address]: Pole Setter/Hand Tube Bender ID = [id number] for Milagros Dennison Lab Interpretation (test code = 57066-0) [facility]normal [facility] [id number] 17:49:00* Test Item Value Reference Range Interpretation Comments POC-GLUCOSE METER (BEAKER) (test code = 1538) 52 mg/dL 70-110 L : Notified RN/MD: TESTED AT [address], [address]: Pole Setter/Hand Tube Bender ID = [id number] for Milagros Dennison ECG 12 [id number] 15:08:36Interface, External Ris In - 08/31/2020 3:08 PM CDTVentricular Rate 49 BPMAtrial Rate 49 BPMP-R Interval 148 msQRS Duration 82 msQ-T Interval 512 msQTC Calculation(Bazett) 462 msP Casco 63 degreesR Casco 53 degreesT [place]co 46 degreesSinus bradycardia with Premature atrial complexesProlonged QTOtherwise normal ECGNo previous ECGs availableConfirmed by Juany Rausch ([id number]) on 08/31/2020 3:08:31 [facility] SARS-CoV2/RT-PCR (Asymptomatic ONLY)2020-08-31 14:50:00* Test Item Value Reference Range Interpretation Comments SARS-COV2/RT-PCR (test code = 49098-5) Negative N ot Detected, Negative, See external report for linked test SARS-COV-2 PERFORMING LAB (test code = 91768-0) [facility] DARWIN (test code = DARWIN) Negative result for this kaz t determines that SARS-CoV-2 RNA was not present in the specimen above the Limit of Detection (LOD). However, Negative results do not preclude SARS-CoV-2 infection and should not be used as the sole basis for treatment or patient management decisions. Negative results must be combined with clinical observations, patient history, and epidemiological information. A false negative result may occur if a specimen is improperly collected, transported or handled. A false negative result should be considered if patient's recent exposures or clinical presentation indicate that COVID-19 (SARS-CoV-2) is likely and diagnostic tests for other causes of illness are negative. Re-testing should be considered in cases of suspected false negatives. The limit of detection for this assay is 800 copies/mL. This SARS CoV-2 test is a real-time RT-PCR test intended for the qualitative detection of nucleic acid from SARS-CoV-2 in a nasopharyngeal swab specimen collected from individuals suspected of COVID-19 by their healthcare provider. This test has not been Food and Drug Administration (FDA) cleared or approved. This is a modified version of an approved Emergency Use Authorization (EUA) and is in the process of review by the FDA. Once authorized by the FDA, the issued EUA will be effective until the declaration that circumstances exist justifying the authorization of the emergency use of in vitro diagnostic tests for detection and/or diagnosis of COVID-19 is terminated under Section 564(b)(2) of the Act or the EUA is revoked under Section 564(g) of the Act. Fact Sheet for Healthcare Providers:https://www.[employer].Kngine/sites/default/files/product/documents/Fact_Shee d_EE_Vbvvjeddk_Jarc_RYQH-VoU-4.pdf Fact Sheet for Healthcare Patients:https://www.[employer].com/sites/default/files/pro duct/documents/Ioru_Mdvfu_Awhmvidi_Zogv_FFAO-HfS-8.pdf Performing Laboratory:[facility] [place] [address] [facility])2020-08-31 14:50:00* Test Item Value Reference Range Interpretation Comments SARS-COV2/RT-PCR (test code = 5374158) Negative N ot Detected, Negative, See external report for linked test SARS-COV-2 PERFORMING LAB (test code = 5013747) [facility] Negative result for this test determines that SARS-CoV-2 RNA was not present in the specimen above the Limit of Detection (LOD). However, Negative results do n ot preclude SARS-CoV-2 infection and should not be used as the sole basis for tr eatment or patient management decisions. Negative results must be combined with clinical observations, patient history, and epidemiological information. A false negative result may occur if a specimen is improperly collected, transported or handled. A false negative result should be considered if patient's recent expo sures or clinical presentation indicate that COVID-19 (SARS-CoV-2) is likely and diagnostic tests for other causes of illness are negative. Re-testing should be considered in cases of suspected false negatives.The limit of detection for this assay is 800 copies/mL.This SARS CoV-2 test is a real-time RT-PCR test intended for the qualitative detection of nucleic acid from SARS-CoV-2 in a nasopharyn geal swab specimen collected from individuals suspected of COVID-19 by their [facility].This test has not been Food and Drug Administration (FDA) clear ed or approved. This is a modified version of an approved Emergency Use Authori zation (EUA) and is in the process of review by the FDA. Once authorized by [facility] FDA, the issued EUA will be effective until the declaration that circumstances exist justifying the authorization of the emergency use of in vitro diagnostic tests for detection and/or diagnosis of COVID-19 is terminated under Section 564 (b)(2) of the Act or the EUA is revoked under Section 564(g) of the Act.Fact She et for Healthcare Providers:https://www.[employer]/sites/default/files/product/d ocuments/Uhgu_Gtsjn_FN_Uekipyota_Zanm_OEVE-SdD-4.pdfFact Sheet for Healthcare Pa lashawns:https://www.[employer]/sites/default/files/product/documents/Fact_Sheet_P hjfwdls_Belc_BFKM-FoZ-1.pdfPerforming Laboratory:[facility] [address], [place] [address]Pkofoa acid, [id number] 12:54:00* Test Item Value Reference Range Interpretation Comments Lactate, Venous (test code = 2872) 0.69 mmol/L 0.5-2.2 Specimen slightly hemolyzed DARWIN (test code = DARWIN) Pole Setter ID - HALEY C Lab Interpretation (test code = 54863-3) Normal [facility], [id number] 12:54:00* Test Item Value Reference Range Interpretation Comments LACTATE BLOOD VENOUS (2) (BEAKER) (test code = 2872) 0.69 mmol/L 0 .50-2.20 Specimen slightly hemolyzed Pole Setter ID - HALEY CRAD, CHEST, 1 VIEW, NON [id number] 11:28:00Reason for exam:->picc lineShould this be performed at the bedside?->YesFINAL REPORT RAD, CHEST, 1 VIEW, NON DEPT INDICATION: picc line COMPARISON: None FINDINGS: Portable frontal view of the chest. IMPRESSION: Support Lines: Right PICC terminates over the superior vena cava. Lungs and pleura: Lungs are clear. No pneumothorax.Heart and mediastinum: Unremarkable co ntours.Additional findings: None. Signed: JR Marks Robert MDReport Veri fibrett Date/Time: 08/31/2020 11:28:27 Reading Location: [facility] C013 Transitional Reading Room chest 1 view portable / [id number] 11:28:00Interface, External Ris In - 08/31/2020 11:31 AM CDTFINAL REPORT RAD, CHEST, 1 VIEW, NON DEPT INDICATION: picc line COMPARISON: None FINDINGS: Portable frontal view of the chest. IMPRESSION: Support Lines: Right PICC terminates over the superior vena cava. Lungs and pleura: Lungs are clear. No pneumothorax.Heart and mediastinum: Unremarkable contours.Additional findings: None. Signed: JR Kendrick, Geovanni Dai Verified Date/Time: 08/31/2020 11:28:27 Reading Location: [address] Transitional Reading Room Electronica ll signed by: GEOVANNI MARKS on 08/31/2020 11:28 AM [facility], [id number] 09:02:00Reason for exam:->suprapubic pain, suspected suprapubic catheter infectionWhat is the patient's sedation requirement?->No SedationFINAL REPORT CT abdomen and pelvis with contrast [...] the right renal collecting system. No ureteral ottoniel culus is seen. . No small or large bowel obstruction. No apparent bowel wall t hickening. Moderate sigmoid diverticulosis, without diverticulitis. No findings to indicate acute appendicitis. No free fluid or lymphadenopathy. No abdomina l aortic aneurysm. No aggressive osseous lesion. Impression: 1. Bilateral uret eral stents and suprapubic bladder catheter in satisfactory positions.2. Moderat e persistent right hydronephrosis.3. There is mild increased enhancement of the right renal collecting system, which could relate to urinary tract infection. Mckeon ggest clinical correlation.4. Bilateral nonobstructing renal calculi, measuring up to 14 mm in size within the right kidney and 6 mm in size within the left kid diallo.5. Moderate sigmoid diverticulosis, without diverticulitis. Signed: Dante Carlos MDReport Verified Date/Time: 08/31/2020 09:02:57 Reading Location: [address] Reading Room abdomen pelvis with IV [id number] 09:02:00 Interface, External Ris In - 08/31/2020 9:05 AM CDTFINAL REPORT PATIENT ID: [id number] abdomen and pelvis with contrast History: Acute abdominal pain Compar pari: none Technique: serial axial imaging was performed following up to 100cc o f non ionic iodinated intravenous contrast as per departmental protocol. Multip lanar images are reconstructed and reviewed when indicated. This CT examinatio n is performed using one or more of the following dose reduction techniques: Aut omated exposure control, adjustment of the mA and /or kV according to patient si ze, and/or use of iterative reconstruction technique. Findings: Small pericardia l and bilateral pleural effusions. Unremarkable appearance of pancreas and sple en. Unremarkable appearance of the liver. The patient is status post cholecyste ctomy. Bilateral ureteral stents as well as a suprapubic bladder catheter appe ar in satisfactory position. Moderate persistent right hydronephrosis. [...] without diverticulitis. No findings to indicate acute appendicit is. No free fluid or lymphadenopathy. No abdominal aortic aneurysm. No aggr essive osseous lesion. Impression: 1. Bilateral ureteral stents and suprapubic b ladder catheter in satisfactory positions.2. Moderate persistent right hydroneph rosis.3. There is mild increased enhancement of the right renal collecting syste m, which could relate to urinary tract infection. Suggest clinical correlation.4 . Bilateral nonobstructing renal calculi, measuring up to 14 mm in size within t he right kidney and 6 mm in size within the left kidney.5. Moderate sigmoid dive rticulosis, without diverticulitis. Signed: Dante Carlos MDReport Verified Da te/Time: 08/31/2020 09:02:57 Reading Location: [address] Reading Room [facility] Dticdixtfzxrnp4481-60-84 08:46:24Mohamud Urias MD 08/31/2020 8:59 AMECG/EKG InterpretationDate/Time: 08/31/2020 8:55 AMPerformed by: Mohamud Urias MDAuthorized by: Mohamud Urias MD The ECG was interpreted by ED physician. The ECG is interpreted as sinus bradycardia. Ectopy noted: atrial premature contractions. Rate is bradycardic. Heart rate is 48 BPM.ST segments normal. T waves normal. Clinical Impression: non-specific ECGECG reviewed and does not meet STEMI criteria. Pat ient tolerance: Patient tolerated the procedure well with no immediate complicat ions [facility] + Reflex to Culture 2020-08-31 06:00:00* Test Item Value Reference Range Interpretation Comments Color, UA (test code = 5778-6) [place] Clarity, UA (test code = 5767-9) Cloudy Specific [place], UA (test code = 5811-5) 1.013 1.001-1.035 pH, UA (test code = 5803-2) 6.5 5.0-8.0 Protein, UA (test code = 77447-0) 100 mg/dL Negative A Glucose, UA (test code = 365) Negative Negative Ketones, UA (test code = 2514-8) Negative Negative Bilirubin, UA (test code = 02205-3) Negative Negative Blood, UA (test code = 51833-4) Large Negative A Nitrite, UA (test code = 5802-4) Positive Negative A Leukocytes, UA (test code = 5799-2) Large Negative A Urobilinogen, UA (test code = 44073-8) 0.2 mg/dL 0.2-1 RBC, UA (test code = 11428-8) 1201 /HPF WBC, UA (test code = 5821-4) 1613 /HPF Bacteria, UA (test code = 57672-1) Many Mucus (test code = 8247-9) Few Squam Epithel, UA (test code = 86209-8) 28 /HPF Specimen Source (test code = 2795) DARWIN (test code = DARWIN) Pole Setter ID - tech Lab Interpretation (test code = 78945-1) [facility] [id number] 06:00:00* Test Item Value Reference Range Interpretation Comments COLOR (BEAKER) (test code = 470) [place] CLARITY (BEAKER) (test code = 469) Cloudy SPECIFIC GRAVITY UA (BEAKER) (test code = 468) 1.013 1.001-1 .035 PH UA (BEAKER) (test code = 467) 6.5 5.0-8.0 PROTEIN UA (BEAKER) (test code = 464) 100 mg/dL Negative A GLUCOSE UA (BEAKER) (test code = 365) Negative Negative KETONES UA (BEAKER) (test code = 371) Negative Negative BILIRUBIN UA (BEAKER) (test code = 462) Negative Negative BLOOD UA (BEAKER) (test code = 461) Large Negative A NITRITE UA (BEAKER) (test code = 465) Positive Negative A LEUKOCYTE ESTERASE UA (BEAKER) (test code = 466) Large Negat susy A UROBILINOGEN UA (BEAKER) (test code = 463) 0.2 mg/dL 0.2-1.0 RBC UA (BEAKER) (test code = 519) 1201 /HPF WBC UA (BEAKER) (test code = 520) 1613 /HPF BACTERIA (BEAKER) (test code = 517) Many MUCUS (BEAKER) (test code = 1574) Few SQUAMOUS EPITHELIAL (BEAKER) (test code = 516) 28 /HPF SOURCE(BEAKER) (test code = 2795) Pole Setter ID - techHepatic function [id number] 04:46:00* Test Item Value Reference Range Interpretation Comments Protein, Total (test code = 2885-2) 4.9 6.0- 8.3 gm/dL L Albumin (test code = 83116-8) 1.7 g/dL 3.5-5 L Total Bilirubin (test code = 1974-) 0.4 mg/dL 0.2-1.2 Bilirubin, Direct (test code = 1967-7) 0.3 mg/dL 0.1-0.5 Alkaline Phosphatase (test code = 6768-6) 112 U/L 40-150 AST (test code = 1920-8) 11 U/L 5-34 ALT (test code = 1742-6) <6 6-55 L DARWIN (test code = DARWIN) Pole Setter ID - ANGEL M Lab Interpretation (test code = 20896-2) Abnormal [facility] METABOLIC [id number] 04:46:00* Test Item Value Reference Range Interpretation Comments SODIUM (BEAKER) (test code = 381) 146 meq/L 136-145 H POTASSIUM (BEAKER) (test code = 379) 4.0 meq/L 3.5-5.1 CHLORIDE (BEAKER) (test code = 382) 115 meq/L 98-107 H CO2 (BEAKER) (test code = 355) 27 meq/L 22-29 BLOOD UREA NITROGEN (BEAKER) (test code = 354) 21 mg/dL 7-21 CREATININE (BEAKER) (test code = 358) 1.09 mg/dL 0.57-1.25 GLUCOSE RANDOM (BEAKER) (test code = 652) 77 mg/dL 70-105 CALCIUM (BEAKER) (test code = 697) 7.4 mg/dL 8.4-10.2 L EGFR (BEAKER) (test code = 1092) 50 mL/min/1.73 sq m ESTIMATED GFR IS NOT ACCURATE CREATININE CLEARANCE IN PREDICTING GLOMERULAR FILTRATION RATE. ESTIMATED GFR IS NOT APPLICABLE FOR DIALYSIS PATIENTS. Pole Setter ID - ANGEL EPATIC FUNCTION [id number] 04:46:00* Test Item Value Reference Range Interpretation Comments TOTAL PROTEIN (BEAKER) (test code = 770) 4.9 gm/dL 6.0-8.3 L ALBUMIN (BEAKER) (test code = 1145) 1.7 g/dL 3.5-5.0 L BILIRUBIN TOTAL (BEAKER) (test code = 377) 0.4 mg/dL 0.2-1.2 BILIRUBIN DIRECT (BEAKER) (test code = 706) 0.3 mg/dL 0.1-0.5 ALKALINE PHOSPHATASE (BEAKER) (test code = 346) 112 U/L 40-150 AST (SGOT) (BEAKER) (test code = 353) 11 U/L 5-34 ALT (SGPT) (BEAKER) (test code = 347) < U/L 6-55 L Pole Setter ID - ANGEL MC-Reactive [id number] 04:45:00* Test Item Value Reference Range Interpretation Comments CRP (test code = 676) 6.22 mg/dL 0-0.5 H DARWIN (test code = DARWIN) Pole Setter ID - ANGEL M Lab Interpretation (test code = 37257-7) Abnormal [facility]REACT[facility] [id number] 04:45:00* Test Item Value Reference Range Interpretation Comments C-REACTIVE PROTEIN (BEAKER) (test code = 676) 6.22 mg/dL 0.00-0.5 0 H Pole Setter ID - ANGEL MCBC W/PLT COUNT & AUTO [id number] 04:29:00* Test Item Value Reference Range Interpretation Comments WHITE BLOOD CELL COUNT (BEAKER) (test code = 775) 4.7 K/ L 3.5- 10.5 RED BLOOD CELL COUNT (BEAKER) (test code = 761) 3.68 M/ L 3.93-5 .22 L HEMOGLOBIN (BEAKER) (test code = 410) 10.2 GM/DL 11.2-15.7 L HEMATOCRIT (BEAKER) (test code = 411) 34.2 % 34.1-44.9 MEAN CORPUSCULAR VOLUME (BEAKER) (test code = 753) 92.9 fL 79. 4-94.8 MEAN CORPUSCULAR HEMOGLOBIN (BEAKER) (test code = 751) 27.7 pg 25.6-32.2 MEAN CORPUSCULAR HEMOGLOBIN CONC (BEAKER) (test code = 752) 29.8 GM/DL 32.2-35.5 L RED CELL DISTRIBUTION WIDTH (BEAKER) (test code = 412) 14.8 % 11.7-14.4 H PLATELET COUNT (BEAKER) (test code = 756) 193 K/CU MM 150-450 MEAN PLATELET VOLUME (BEAKER) (test code = 754) 9.7 fL 9.4-12 .3 NUCLEATED RED BLOOD CELLS (BEAKER) (test code = 413) 0 /100 WBC 0 -0 NEUTROPHILS RELATIVE PERCENT (BEAKER) (test code = 429) 56 % LYMPHOCYTES RELATIVE PERCENT (BEAKER) (test code = 430) 27 % MONOCYTES RELATIVE PERCENT (BEAKER) (test code = 431) 9 % EOSINOPHILS RELATIVE PERCENT (BEAKER) (test code = 432) 6 % BASOPHILS RELATIVE PERCENT (BEAKER) (test code = 437) 1 % NEUTROPHILS ABSOLUTE COUNT (BEAKER) (test code = 670) 2.60 K/ L 1.56-6.13 LYMPHOCYTES ABSOLUTE COUNT (BEAKER) (test code = 414) 1.25 K/ L 1.18-3.74 MONOCYTES ABSOLUTE COUNT (BEAKER) (test code = 415) 0.40 K/ L 0. 24-0.36 H EOSINOPHILS ABSOLUTE COUNT (BEAKER) (test code = 416) 0.30 K/ L 0.04-0.36 BASOPHILS ABSOLUTE COUNT (BEAKER) (test code = 417) 0.06 K/ L 0. 01-0.08 IMMATURE GRANULOCYTES-RELATIVE PERCENT (BEAKER) (test code = 2801) 1 % 0-1 Capillary blood glucose measurement by glucometer (mass/volume)2020-08-16 10:01:00* Test Item Value Reference Range Interpretation Comments Bedside Glucose (test code = 30216-6) 64 70-120 Meter ID: [id number] [facility] DistrictBlood leukocytes automated count (number/volume)2020-08-15 04:50:00* Test Item Value Reference Range Interpretation Comments White Blood Count (test code = 6690-2) 5.49 4.8-10.8 [facility] DistrictBlood erythrocytes automated count (number/volume)2020-08-15 04:50:00* Test Item Value Reference Range Interpretation Comments Red Blood Count (test code = 789-8) 3.64 3.6-5.1 [facility] DistrictBlood hemoglobin measurement (moles/volume)2020-08-15 04:50:00* Test Item Value Reference Range Interpretation Comments Hemoglobin (test code = 34974-4) 10.1 12.0-16.0 [facility] DistrictAutomated blood hematocrit (volume fraction)2020-08-15 04:50:00* Test Item Value Reference Range Interpretation Comments Hematocrit (test code = 4544-3) 32.7 34.2-44.1 [facility] DistrictAutomated erythrocyte mean corpuscular xquriq1187-00-98 04:50:00* Test Item Value Reference Range Interpretation Comments Mean Corpuscular Volume (test code = 787-2) 89.8 81-99 [facility] DistrictAutomated erythrocyte mean corpuscular hemoglobin (mass per erythrocyte)2020-08-15 04:50:00* Test Item Value Reference Range Interpretation Comments Mean Corpuscular Hemoglobin (test code = 785-6) 27.7 28-32 [facility] DistrictAutnovant health [facility] centered erythrocyte mean corpuscular hemoglobin concentration measurement (mass/volume)2020-08-15 04:50:00* Test Item Value Reference Range Interpretation Comments Mean Corpuscular Hemoglobin Concent (test code = 786-4) 30.9 31-35 [facility] DistrictRDW WpjHh-Qna2512-28-21 04:50:00* Test Item Value Reference Range Interpretation Comments Red Cell Distribution Width (test code = 98706-2) 14.9 11.7 -14.4 [facility] DistrictAutnovant [facility] centered blood platelet count (count/volume)2020-08-15 04:50:00* Test Item Value Reference Range Interpretation Comments Platelet Count (test code = 777-3) 179 140-360 [facility] DistrictAutomated blood segmented neutrophil count as percentage of total ywqxrusqrq5070-96-74 04:50:00* Test Item Value Reference Range Interpretation Comments Neutrophils (%) (Auto) (test code = 17323-6) 58.3 38.7-80.0 [facility] DistrictAutomated blood lymphocyte count as percentage ot total rdmnhahbmr7150-22-64 04:50:00* Test Item Value Reference Range Interpretation Comments Lymphocytes (%) (Auto) (test code = 736-9) 30.2 18.0-39.1 [facility] DistrictAutomated blood monocyte count as percentage of total pizislpkaa8875-33-49 04:50:00* Test Item Value Reference Range Interpretation Comments Monocytes (%) (Auto) (test code = 5905-5) 5.8 4.4-11.3 [facility] DistrictAutomated blood eosinophil count as percentage of total houkafegwm7471-07-17 04:50:00* Test Item Value Reference Range Interpretation Comments Eosinophils (%) (Auto) (test code = 713-8) 3.5 0.0-6.0 [facility] DistrictAutomated blood basophil count as percentage of total zknkndcokw2438-85-52 04:50:00* Test Item Value Reference Range Interpretation Comments Basophils (%) (Auto) (test code = 706-2) 0.7 0.0-1.0 [facility] DistrictFluoroscopic procedure less than one hour gwqnrqzu1132-12-62 04:50:00* Test Item Value Reference Range Interpretation Comments IM GRANULOCYTES % (test code = IM GRANULOCYTES %) 1.5 0.0- 1.0 [facility] DistrictAutomated blood neutrophil count 2020-08-15 04:50:00* Test Item Value Reference Range Interpretation Comments Neutrophils # (Auto) (test code = 751-8) 3.2 2.1-6.9 [facility] DistrictBlood lymphocytes count (number/volume) 2020-08-15 04:50:00* Test Item Value Reference Range Interpretation Comments Lymphocytes # (Auto) (test code = 09443-1) 1.7 1.0-3.2 [facility] DistrictBlood monocytes automated count (number/volume)2020-08-15 04:50:00* Test Item Value Reference Range Interpretation Comments Monocytes # (Auto) (test code = 742-7) 0.3 0.2-0.8 [facility] DistrictAutomated blood eosinophil count 2020-08-15 04:50:00* Test Item Value Reference Range Interpretation Comments Eosinophils # (Auto) (test code = 711-2) 0.2 0.0-0.4 [facility] DistrictAutomated blood basophil count (count/volume)2020-08-15 04:50:00* Test Item Value Reference Range Interpretation Comments Basophils # (Auto) (test code = 704-7) 0.0 0.0-0.1 [facility] DistrictFluoroscopic procedure less than one hour pqmfszce6251-58-80 04:50:00* Test Item Value Reference Range Interpretation Comments Absolute Immature Granulocyte (auto (kaz t code = Absolute Immature Granulocyte (auto) 0.08 0-0.1 [facility]ererum or plasma sodium measurement (moles/volume)2020-08-15 04:50:00* Test Item Value Reference Range Interpretation Comments Sodium Level (test code = 2951-2) 140 136-145 [facility] Centererum or plasma potassium measurement (moles/volume)2020-08-15 04:50:00* Test Item Value Reference Range Interpretation Comments Potassium Level (test code = 2823-3) 4.0 3.5-5.1 [facility]ererum or plasma chloride measurement (moles/volume)2020-08-15 04:50:00* Test Item Value Reference Range Interpretation Comments Chloride Level (test code = 2075-0) 109 98-107 [facility] Centererum or plasma carbon dioxide, total measurement (moles/volume)2020-08-15 04:50:00* Test Item Value Reference Range Interpretation Comments Carbon Dioxide Level (test code = 2028-9) 27 22-29 [facility] Centererum or plasma anion zyk8705-73-31 04:50:00* Test Item Value Reference Range Interpretation Comments Anion Gap (test code = 74017-1) 8.0 8-16 [facility]ererum or plasma urea nitrogen measurement (mass/volume)2020-08-15 04:50:00* Test Item Value Reference Range Interpretation Comments Blood Urea Nitrogen (test code = 3094-0) 6 7-26 [facility] Centererum or plasma creatinine measurement (mass/volume)2020-08-15 04:50:00* Test Item Value Reference Range Interpretation Comments Creatinine (test code = 2160-0) 0.81 0.57-1.11 [facility] Centererum or plasma urea nitrogen/creatinine mass urzoy3361-43-10 04:50:00* Test Item Value Reference Range Interpretation Comments BUN/Creatinine Ratio (test code = 3097-3) 7 6-25 [facility] DistrictEstimated glomerular filtration rate (GFR) micrycjuscjiq7122-12-89 04:50:00* Test Item Value Reference Range Interpretation Comments Estimat Glomerular Filtration Rate (test code = 793219669) > 60 >60 Ranges were taken from the National Kidney Disease Education Program and the [facility] literature.Reference ranges:60 or greater: Msmnyy83-28 ( for 3 consecutive months): Chronic kidney disease 15 or less: Kidney failureBallinger Memorial Hospital DistrictGlucose cfvqcndzntt0754-90-62 04:50:00* Test Item Value Reference Range Interpretation Comments Glucose Level (test code = YPR7366) 74 74-118 [facility] Centererum or plasma calcium measurement (mass/volume)2020-08-15 04:50:00* Test Item Value Reference Range Interpretation Comments Calcium Level (test code = 24898-2) 7.5 8.4-10.2 [facility] Centererum or plasma total bilirubin measurement (mass/volume)2020-08-14 06:20:00* Test Item Value Reference Range Interpretation Comments Total Bilirubin (test code = 1975-2) 0.5 0.2-1.2 [facility] DistrictFluoroscopic procedure less than one hour szpcxsce9935-52-53 06:20:00* Test Item Value Reference Range Interpretation Comments Aspartate Amino Transf (AST/SGOT) (test code = Aspartate Amino Transf (AST/SGOT)) 19 5-34 [facility] Centererum or plasma alanine aminotransferase measurement (enzymatic activity/volume)2020-08-14 06:20:00* Test Item Value Reference Range Interpretation Comments Alanine Aminotransferase (ALT/SGPT) (test code = 1742-6) 11 0-55 [facility] Centererum or plasma protein measurement (mass/volume)2020-08-14 06:20:00* Test Item Value Reference Range Interpretation Comments Total Protein (test code = 2885-2) 5.0 6.5-8.1 [facility] Centererum or plasma albumin measurement (mass/volume)2020-08-14 06:20:00* Test Item Value Reference Range Interpretation Comments Albumin (test code = 1751-7) 1.8 3.5-5.0 [facility] DistrictPlasma globulin measurement (mass/volume) 2020-08-14 06:20:00* Test Item Value Reference Range Interpretation Comments Globulin (test code = 43641-5) 3.2 2.3-3.5 [facility] Centererum or plasma albumin/globulin mass mfhum6018-84-06 06:20:00* Test Item Value Reference Range Interpretation Comments Albumin/Globulin Ratio (test code = 1759-0) 0.6 0.8-2.0 [facility] Centererum or plasma alkaline phosphatase measurement (enzymatic activity/volume)2020-08-14 06:20:00* Test Item Value Reference Range Interpretation Comments Alkaline Phosphatase (test code = 6768-6) 110 40-150 [facility] DistrictCHEST SINGLE (PORTABLE)2020-08-13 16:43:00 [facility] [address] [place] [address] Patient Name: SADA KARIMI MR #: [id number] : 1950 Age/Sex: 69/F Req #: [id number] Adm Physician: JUANY AWAD MD Ordered by: JUANY AWAD MD Report #: [id number] Location: [place] [address] Room/Bed: [facility] Procedure: DX/CHEST SI NGLE (PORTABLE) Exam Date: 08/13/20 Exam Time: 1613 REPORT STATUS: Signed EXAMINATIO N: CHEST SINGLE (PORTABLE) INDICATION: Altered mental status DIAG NOSTIC [id number] Y COMPARISON: Chest radiograph 08/11/2020 FINDINGS: TUBES and LINES: Mild retraction of right PICC with t ip now at the low SVC. LUNGS: Normal lung volumes. No focal opacity or co nsolidation. PLEURA: No pleural effusion or pneumothorax. HEART AND MEDIASTINUM: The cardiomediastinal silhouette is unchanged. Episodic calcifi cations of the aortic arch BONES AND SOFT TISSUES: No acute osseous lesion . UPPER ABDOMEN: No free air under the diaphragm. IMPRESSION: 1. Mild retraction of right PICC with tip now at the low SVC. 2. No acute c ardiopulmonary abnormality. Signed by: Dr. Gorge Boggs M.D. on 07/26 4:47 PM Dictated By: GORGE BOGGS MD 46 Transcribed By: DAVID on 08/13/201646 COPY TO: JUANY AWAD MD Ammonia Qfx-tHgc7536-03-18 12:15:00* Test Item Value Reference Range Interpretation Comments Ammonia (test code = 06569-0) 29 31-123 [facility] DistrictMODIFIED BAZakiya WEAXQDL2844-98-27 09:35:00 [place] [address] Patient Name: SADA KARIMI MR #: [id number] : 1950 Age/Sex: 69/F Req #: [id number] Adm Physician: JUANY AWAD MD Ordered by: VIVEK SPRINGER DEBURRING MACHINE OPERATOR Report #: [id number] Location: MED/SURG2 Room/Bed: [facility] Procedure: [id number] DX/MODIFIED SWALLOW Exam Date: 08/11/20 Exam Time: 1120 REPORT STATUS: Signed PROCEDURE: X- RAY MODIFIED BARIUM SWALLOW COMPARISON: None. INDICATION: Aspiration Radiation Details: Fluoroscopy time: 1.5 minutes Cumulative dose: 7.9 m Gy DISCUSSION: Fluoroscopic examination was performed in conjunction with s peech pathology during swallowing a variety of thin and thick liquid consisten cies. Provided images demonstrate laryngeal penetration and aspiration. CONCLUSION: Modified barium swallow demonstrating laryngeal penetration and a spiration. Please refer to the speech pathology report for further details. Signed by: Chrissy Alfonso MD on 08/12/2020 9:35 AM Dictated By: CHRISSY ALFONSO MD 4 Transcribed By: Jeremiah CRUZ on 08/12/20934 COPY TO: VIVEK SPRINGER DEBURRING MACHINE OPERATOR Phosphorus ghoypvsclpd2431-87-23 06:20:00* Test Item Value Reference Range Interpretation Comments Phosphorus Level (test code = USZ9779) 3.4 2.3-4.7 [facility] Centererum or plasma magnesium measurement (mass/volume)2020-08-11 06:20:00* Test Item Value Reference Range Interpretation Comments Magnesium Level (test code = 64260-3) 1.7 1.3-2.1 [facility] DistrictCHEST XRAY LINE WQXVRUXCS8385-88-47 02:35:00 [place] [address] Patient Name: SADA KARIMI MR #: [id number] : 1950 Age/Sex: 69/F Req #: [id number] Adm Physician: JUANY AWAD MD Ordered by: JUANY AWAD MD Report #: [id number] Location: MED/SURG2 Room/Bed: 200-1 Procedure: [id number] DX/CHEST XR AY LINE PLACEMENT Exam Date: 08/11/20 Exam Time: 022 0 REPORT STATUS: Signed EXAMINAT ION: CHEST XRAY LINE PLACEMENT 1 VIEW INDICATION: picc COMPARISON: Radiograph dated August 07, 2020. FINDINGS: Right PICC t ip projects over the distal SVC. No pneumothorax. Normal heart size. Pulmon galen vessels are within normal limits. No consolidation. No pleural effusio n. No pneumothorax. Surgical clips project over the right upper quadrant. IMPRESSION: Right PICC tip projects over the distal SVC. No pneumothor ax. Signed by: Isabelle Chaparro MD on 08/11/2020 2:39 AM Dictated By : ISABELLE CHAPARRO MD 8 Transcribed By: DAVID on 08/11/20238 COPY TO: JUANY AWAD MD Fluoroscopic procedure less than one hour pvnnfsyc2910-12-53 14:18:00* Test Item Value Reference Range Interpretation Comments Hemoglobin A1c Percent (test code = Hemoglobin A1c Percent) 4.9 4.0-7.0 [facility] DistrictBNP Pau-dEoe8612-45-15 14:18:00* Test Item Value Reference Range Interpretation Comments B-Type Natriuretic Peptide (test code = 13273-2) 155.2 0-100 [facility] Centererum or plasma triglyceride measurement (mass/volume)2020-08-09 08:26:00* Test Item Value Reference Range Interpretation Comments Triglycerides Level (test code = 2571-8) 88 0-149 [facility] Centererum or plasma cholesterol measurement (mass/volume)2020-08-09 08:26:00* Test Item Value Reference Range Interpretation Comments Cholesterol Level (test code = 2093-3) 82 0-199 Less than 200 mg/dL Low Dbhj353 - 239 mg/dL Borderline Lgvo956 m g/dl and greater High Risk [facility] Centererum or plasma cholesterol in LDL measurement (mass/volume) 2020-08-09 08:26:00* Test Item Value Reference Range Interpretation Comments LDL Cholesterol (test code = 2089-1) 34 60-130 [facility] Centererum or plasma cholesterol in HDL measurement (mass/volume)2020-08-09 08:26:00* Test Item Value Reference Range Interpretation Comments HDL Cholesterol (test code = 2085-9) 30 40-60 [facility] Centererum or plasma total cholesterol/cholesterol in HDL mass bossv6635-46-76 08:26:00* Test Item Value Reference Range Interpretation Comments Cholesterol/HDL Ratio (test code = 9830-1) 2.7 3.0-3.6 [facility] Centererum or plasma thyrotropin measurement by detection limit <= 0.005 miu/l (units/volume)2020-08-09 08:26:00* Test Item Value Reference Range Interpretation Comments Thyroid Stimulating Hormone (TSH) (test code = 75963-2) 0.543 0.350-4.940 [facility] DistrictBacterial urine yuqidkn9605-54-63 17:24:00* Test Item Value Reference Range Interpretation Comments Urine Culture (test code = 630-4) STREPTOCOCCUS VIRIDANS [facility] DistrictBlood platelets count by estimate (number/volume)2020-08-08 05:45:00* Test Item Value Reference Range Interpretation Comments Platelet Estimate (test code = 93235-1) ADEQUATE [facility] DistrictPlatelet xetlabidaq7407-54-98 05:45:00* Test Item Value Reference Range Interpretation Comments Platelet Morphology Comment (test code = 02959-7) NORMAL [facility] DistrictRBC bvgeqnizbm8913-46-78 05:45:00* Test Item Value Reference Range Interpretation Comments Red Cell Morphology Comment (test code = 6742-1) NORMAL [facility] DistrictFluoroscopic procedure less than one hour byzppfrv3472-93-80 19:37:00* Test Item Value Reference Range Interpretation Comments Coronavirus (PCR) (test code = Coronavirus (PCR)) NOT DETECTED NOTD ETECTED SARS-CoV-2 PCRHologic Aptima SARS-CoV-2 assay is a nucleic amplification test in tended for the qualitative detection of RNA from SARS-CoV-2 from nasopharyngeal (DEBURRING MACHINE OPERATOR) specimens. It is used under Emergency Use Authorization (EUA) by FDA.A posi tive result is indicative of the presence of SARS-CoV-2 RNA. Clinical correlatio n with patient history and other diagnostic information is necessary to determin e patient infection status.A negative (Not Detected) result does not preclude SA RS-CoV-2 infection. Clinical Correlation with patient history and other diagnost ic information should be used in patient management decisions.Invalid: Unable to generate a valid result on this specimen. Please submit a new specimen for repr at testing oc clinically indicated.Tesing performed by:[facility] Laboratory Services3 [address] [facility] [id number], Odell fleming MD, PhDBallinger Memorial Hospital DistrictUrine color determination 2020-08-07 19:10:00* Test Item Value Reference Range Interpretation Comments Urine Color (test code = 5778-6) YELLOW YELLOW [facility] DistrictUrine mjutudc9314-01-11 19:10:00* Test Item Value Reference Range Interpretation Comments Urine Clarity (test code = 14563-0) CLOUDY CLEAR [facility] Centerpecific gravity of Urine by Test strip 2020-08-07 19:10:00* Test Item Value Reference Range Interpretation Comments Urine Specific [place] (test code = 5811-5) 1.005 1.010-1.02 5 [facility] DistrictUrine pH measurement by automated test hyohw3019-94-43 19:10:00* Test Item Value Reference Range Interpretation Comments Urine pH (test code = 82117-4) 7.5 5-7 [facility] DistrictUrine leukocyte esterase detection by xtfkdoak8344-68-28 19:10:00* Test Item Value Reference Range Interpretation Comments Urine Leukocyte Esterase (test code = 5799-2) LARGE NEGATIVE [facility] DistrictUrine nitrite hwejkgqyi0207-01-25 19:10:00* Test Item Value Reference Range Interpretation Comments Urine Nitrite (test code = 51889-7) NEGATIVE NEGATIVE [facility] DistrictUrine protein measurement by test strip (mass/volume)2020-08-07 19:10:00* Test Item Value Reference Range Interpretation Comments Urine Protein (test code = 5804-0) 3+ NEGATIVE [facility] DistrictUrine glucose ivpdiwnix3372-48-83 19:10:00* Test Item Value Reference Range Interpretation Comments Urine Glucose (UA) (test code = 2349-9) NEGATIVE NEGATIVE [facility] DistrictUrine ketones detection by automated test kzsxs6325-12-82 19:10:00* Test Item Value Reference Range Interpretation Comments Urine Ketones (test code = 19420-4) NEGATIVE NEGATIVE [facility] DistrictUrine urobilinogen measurement by test strip (mass/volume)2020-08-07 19:10:00* Test Item Value Reference Range Interpretation Comments Urine Urobilinogen (test code = 34104-2) 0.2 0.2-1 [facility] DistrictUrine total bilirubin measurement (mass/volume)2020-08-07 19:10:00* Test Item Value Reference Range Interpretation Comments Urine Bilirubin (test code = 1978-6) NEGATIVE NEGATIVE [facility] DistrictUrine erythrocytes fskancrik6945-97-69 19:10:00* Test Item Value Reference Range Interpretation Comments Urine Blood (test code = 50701-7) LARGE NEGATIVE [facility] DistrictAutomated urine sediment leukocyte count by microscopy (number/high power field)2020-08-07 19:10:00* Test Item Value Reference Range Interpretation Comments Urine WBC (test code = 5821-4) >50 0-5 [facility] DistrictErythrocytes detection in urine sediment by light mrfreufetl7074-99-06 19:10:00* Test Item Value Reference Range Interpretation Comments Urine RBC (test code = 62561-3) >50 0-5 [facility] DistrictBacteria detection in urine sediment by light hmcgdhlxuz3404-07-74 19:10:00* Test Item Value Reference Range Interpretation Comments Urine Bacteria (test code = 75084-5) MODERATE NONE [facility] DistrictEpithelial cells detection in urine sediment by light sfvmvycksg3779-79-65 19:10:00* Test Item Value Reference Range Interpretation Comments Urine Epithelial Cells (test code = 38048-0) FEW NONE [facility] DistrictAutomated fine granular casts count in urine sediment by microscopy low power field (number/area)2020-08-07 19:10:00* Test Item Value Reference Range Interpretation Comments Urine Fine Granular Casts (test code = 38386-1) 1-5 >0 [facility] DistrictMucus detection in urine sediment by light eefhazqova6986-63-44 19:10:00* Test Item Value Reference Range Interpretation Comments Urine Mucus (test code = 8247-9) MODERATE RARE [facility] DistrictProthrombin time (PT) in platelet poor plasma by coagulation qkzpx6066-95-76 18:30:00* Test Item Value Reference Range Interpretation Comments Prothrombin Time (test code = 5902-2) 14.4 11.9-14.5 [facility] DistrictINR in Platelet poor plasma by Coagulation btxvw0596-96-88 18:30:00* Test Item Value Reference Range Interpretation Comments Prothromb Time International Ratio (test code = 6301-6) 1.07 Oral Anticoagulant Therapy INR Values:1. Low Intensity Therapy 1.5 - 2.02 . Moderate Intensity Therapy 2.0 - 3.03. High Intensity Therapy(1) 2.5 - 3. 54. High Intensity Therapy(2) 3.0 - 4.05. Panic Value INR > 5.0 [facility] DistrictActivated partial thromboplastin time (aPTT) in platelet poor plasma by coagulation pvxhe6624-82-67 18:30:00* Test Item Value Reference Range Interpretation Comments Activated Partial Thromboplast Time (test code = 60954-5) 42.3 23.8-35.5 [facility]ererum or plasma creatine kinase measurement (enzymatic activity/volume)2020-08-07 18:30:00* Test Item Value Reference Range Interpretation Comments Creatine Kinase (test code = 2157-6) 7 29-168 [facility] Centererum or plasma creatine kinase MB measurement (mass/volume)2020-08-07 18:30:00* Test Item Value Reference Range Interpretation Comments Creatine Kinase MB (test code = 66070-0) 0.70 0-5.0 [facility] DistrictTroponin I measurement by highly sensitive enzyme aubhkxtbbjc3980-96-17 18:30:00* Test Item Value Reference Range Interpretation Comments Troponin I (test code = 18696-7) 0.013 0-0.300 [facility] DistrictBlood vehzhjt1804-93-72 18:30:00* Test Item Value Reference Range Interpretation Comments Blood Culture (test code = 30351578) NO GROWTH AFTER 5 DAYS, FINAL REPORT [facility]CH[facility]2020-08-07 18:09:00 [facility] [address] [address] Patient Name: SADA KARIMI MR #: [id number] : 1950 Age/Sex: 69/F Req #: [id number] Adm Physician: JUANY AWAD MD Ordered by: KENY PEÑA MD Report #: [id number] Location: [facility] Room/Bed: [place] [address] Procedure: [id number] DX/CHEST SI NGLE (PORTABLE) Exam Date: 08/07/20 Exam Time: 175 REPORT STATUS: Signed EXAMINATIO N: CHEST SINGLE (PORTABLE) INDICATION: Altered mental status CO MPARISON: Chest x-ray on 04/10/2020 FINDINGS: TUBES and LINES : None. LUNGS: Normal lung volumes. Lungs are clear. No consolidations. PLEURA: No pleural effusion or pneumothorax. HEART AND MEDIASTINUM: The cardiomediastinal silhouette is unremarkable. BONES AND SOFT TISSU ES: No acute osseous lesion. Soft tissues are unremarkable. UPPER ABDOM EN: No free air under the diaphragm. Cholecystectomy clips. IMPRESSION: No acute thoracic radiographic abnormality. Signed by: Norman Roche MD on 08/07/2020 6:10 PM Dictated By: NORMAN ROCHE MD Electronically Si gned By: NORMAN ROCHE MD on 08/07/201809 Transcribed By: DAVID on 08/07/201809 COPY TO: KENY PEÑA MD CT BRAIN II0004-19-14 18:09:00 [facility] [address] [address] Patient Name: SADA KARIMI MR #: [id number] : 1950 Age/Sex: 69/F Req #: [id number] Adm Physician: JUANY AWAD MD Ordered by: KENY PEÑA MD Report #: [id number] Location: [facility] Room/Bed: [place] [address] Procedure: [id number] CT/CT BRAIN WO Exam Date: 08/07/20 Exam Time: 1750 REPORT STATUS: Signed EXAMINATION: Head CT HISTORY: 69-year-old female with altered mental status, confusion for the last few days COMPARISON: None. TECHNIQUE: Helical axial images of the head were obtained. Reformatted coronal and sagittal images from the axial data. Dose modulation, iterative reconstruction, and/or weight based adjustment of the mA/kV was utilized to reduce the radiation dose to as low as reasonably ac hievable. Image quality: Motion artifact limits evaluation of the vertex regio n. FINDINGS: Parenchyma: 1. No abnormal densities. 2. N o mass or hemorrhage. No CT evidence of acute territorial vascular insult. Extra-axial spaces:No abnormal density. No extra-axial fluid collect ions Brain volume: Mild generalized brain volume loss Ventricles : No hydrocephalus or displacement. Arteries: No density suggestive of thrombus. Dural sinuses: No abnormal density. Foramen magnum: No mass, Chiari malformation, or basilar invagination. Sella: Enlarged, pa rtially empty, mostly CSF field Paranasal/mastoid sinuses: Hypo pneumat ization and sclerosis of the mastoid air cells, may represent sequela from rem ote inflammatory process. Skull/Scalp: No lytic or blastic lesions. No fractures. IMPRESSION: 1. No acute intracranial abnormalities. 2. Moderate generalized brain volume loss. Signed by: Dr. Timur Farooq M.D. on 08/07/2020 6:11 PM Dictated By: TIMUR FAROOQ MD 10 Transcribed By: DAVID on 08/07/201810 COPY TO: KENY PEÑA MD RETROGRADE MHBEVWAVI8573-56-90 12:40:00 [facility] [address] [place] [address] Patient Name: SADA KARIMI MR #: [id number] : 1950 Age/Sex: 69/F Req #: [id number] Adm Physician: Ordered by: ARSLAN GRIGSBY MD Report #: [id number] Location: OR Room/Bed: Procedure: [id number] DX/RETROGRAD E PYELOGRAM Exam Date: 04/13/20 Exam Time: 946 REPORT STATUS: Signed OR Fluoroscopy: IMPRESSION: Fluoroscopy service provided in the OR. Interpretation not requested. Signed by: Josiah Gandhi MD on 04/13/2020 12:40 PM Dictat ed By: JOSIAH GANDHI MD 39 COPY TO: ASH GRIGSBY MD Blood leukocytes automated count (number/volume)2020-04-11 05:20:00* Test Item Value Reference Range Interpretation Comments White Blood Count (test code = 6690-2) 5.09 4.8-10.8 [facility] DistrictBlood erythrocytes automated count (number/volume)2020-04-11 05:20:00* Test Item Value Reference Range Interpretation Comments Red Blood Count (test code = 789-8) 3.81 3.6-5.1 [facility] DistrictBlood hemoglobin measurement (moles/volume)2020-04-11 05:20:00* Test Item Value Reference Range Interpretation Comments Hemoglobin (test code = 90470-0) 10.2 12.0-16.0 [facility] DistrictAutomated blood hematocrit (volume fraction)2020-04-11 05:20:00* Test Item Value Reference Range Interpretation Comments Hematocrit (test code = 4544-3) 34.0 34.2-44.1 [facility] DistrictAutomated erythrocyte mean corpuscular vqhvze7071-92-29 05:20:00* Test Item Value Reference Range Interpretation Comments Mean Corpuscular Volume (test code = 787-2) 89.2 81-99 [facility] DistrictAutomated erythrocyte mean corpuscular hemoglobin (mass per erythrocyte)2020-04-11 05:20:00* Test Item Value Reference Range Interpretation Comments Mean Corpuscular Hemoglobin (test code = 785-6) 26.8 28-32 [facility] DistrictAutomated erythrocyte mean corpuscular hemoglobin concentration measurement (mass/volume)2020-04-11 05:20:00* Test Item Value Reference Range Interpretation Comments Mean Corpuscular Hemoglobin Concent (test code = 786-4) 30.0 31-35 [facility] DistrictRDW CclCj-Xaf2337-14-18 05:20:00* Test Item Value Reference Range Interpretation Comments Red Cell Distribution Width (test code = 93276-7) 15.9 11.7 -14.4 [facility] DistrictAutomated blood platelet count (count/volume)2020-04-11 05:20:00* Test Item Value Reference Range Interpretation Comments Platelet Count (test code = 777-3) 144 140-360 [facility] DistrictAutnovant health forsy[facility] medical centered blood segmented neutrophil count as percentage of total gtcithkyqh0967-62-49 05:20:00* Test Item Value Reference Range Interpretation Comments Neutrophils (%) (Auto) (test code = 03816-8) 69.3 38.7-80.0 [facility] DistrictAutomated blood lymphocyte count as percentage ot total hfhffilefq5340-07-83 05:20:00* Test Item Value Reference Range Interpretation Comments Lymphocytes (%) (Auto) (test code = 736-9) 17.7 18.0-39.1 [facility] DistrictAutomated blood monocyte count as percentage of total xcjmpilebj1771-34-84 05:20:00* Test Item Value Reference Range Interpretation Comments Monocytes (%) (Auto) (test code = 5905-5) 5.3 4.4-11.3 [facility] DistrictAutomated blood eosinophil count as percentage of total hgbllrkgfi7315-38-75 05:20:00* Test Item Value Reference Range Interpretation Comments Eosinophils (%) (Auto) (test code = 713-8) 6.3 0.0-6.0 [facility] DistrictAutomated blood basophil count as percentage of total lchzgouued8852-24-67 05:20:00* Test Item Value Reference Range Interpretation Comments Basophils (%) (Auto) (test code = 706-2) 1.0 0.0-1.0 [facility] DistrictFluoroscopic procedure less than one hour cccfkeqz2572-05-52 05:20:00* Test Item Value Reference Range Interpretation Comments IM GRANULOCYTES % (test code = IM GRANULOCYTES %) 0.4 0.0- 1.0 [facility] DistrictAutomated blood neutrophil count 2020-04-11 05:20:00* Test Item Value Reference Range Interpretation Comments Neutrophils # (Auto) (test code = 751-8) 3.5 2.1-6.9 [facility] DistrictBlood lymphocytes count (number/volume) 2020-04-11 05:20:00* Test Item Value Reference Range Interpretation Comments Lymphocytes # (Auto) (test code = 15201-1) 0.9 1.0-3.2 [facility] DistrictBll[facility] monocytes automated count (number/volume)2020-04-11 05:20:00* Test Item Value Reference Range Interpretation Comments Monocytes # (Auto) (test code = 742-7) 0.3 0.2-0.8 [facility] DistrictAutomated blood eosinophil count 2020-04-11 05:20:00* Test Item Value Reference Range Interpretation Comments Eosinophils # (Auto) (test code = 711-2) 0.3 0.0-0.4 [facility] DistrictAutomated blood basophil count (count/volume)2020-04-11 05:20:00* Test Item Value Reference Range Interpretation Comments Basophils # (Auto) (test code = 704-7) 0.1 0.0-0.1 [facility] DistrictFluoroscopic procedure less than one hour zmjjcinj5847-89-77 05:20:00* Test Item Value Reference Range Interpretation Comments Absolute Immature Granulocyte (auto (kaz t code = Absolute Immature Granulocyte (auto) 0.02 0-0.1 [facility]ererum or plasma sodium measurement (moles/volume)2020-04-11 05:20:00* Test Item Value Reference Range Interpretation Comments Sodium Level (test code = 2951-2) 142 136-145 [facility]ererum or plasma potassium measurement (moles/volume)2020-04-11 05:20:00* Test Item Value Reference Range Interpretation Comments Potassium Level (test code = 2823-3) 3.9 3.5-5.1 [facility] Centererum or plasma chloride measurement (moles/volume)2020-04-11 05:20:00* Test Item Value Reference Range Interpretation Comments Chloride Level (test code = 2075-0) 114 98-107 [facility] Centererum or plasma carbon dioxide, total measurement (moles/volume)2020-04-11 05:20:00* Test Item Value Reference Range Interpretation Comments Carbon Dioxide Level (test code = 2028-9) 21 22-29 [facility] Centererum or plasma anion hqb6803-43-11 05:20:00* Test Item Value Reference Range Interpretation Comments Anion Gap (test code = 79764-2) 10.9 8-16 [facility] Centererum or plasma urea nitrogen measurement (mass/volume)2020-04-11 05:20:00* Test Item Value Reference Range Interpretation Comments Blood Urea Nitrogen (test code = 3094-0) 11 - [facility] Centererum or plasma creatinine measurement (mass/volume)2020-04-11 05:20:00* Test Item Value Reference Range Interpretation Comments Creatinine (test code = 2160-0) 0.86 0.57-1.11 [facility] Centererum or plasma urea nitrogen/creatinine mass fqkvw9656-84-47 05:20:00* Test Item Value Reference Range Interpretation Comments BUN/Creatinine Ratio (test code = 3097-3) 13 05-19 [facility] DistrictEstimated glomerular filtration rate (GFR) wxgaowwcfswvx6526-40-54 05:20:00* Test Item Value Reference Range Interpretation Comments Estimat Glomerular Filtration Rate (test code = 230340184) > 60 >60 Ranges were taken from the National Kidney Disease Education Program and the [facility] literature.Reference ranges:60 or greater: Ciyyhr55-40 ( for 3 consecutive months): Chronic kidney disease 15 or less: Kidney failureBallinger Memorial Hospital DistrictGlucose fnuorketdao5956-66-86 05:20:00* Test Item Value Reference Range Interpretation Comments Glucose Level (test code = NBH4293) 80 74-118 [facility]ererum or plasma calcium measurement (mass/volume)2020-04-11 05:20:00* Test Item Value Reference Range Interpretation Comments Calcium Level (test code = 34570-0) 8.1 8.4-10.2 [facility] Centererum or plasma total bilirubin measurement (mass/volume)2020-04-11 05:20:00* Test Item Value Reference Range Interpretation Comments Total Bilirubin (test code = 1975-2) 0.6 0.2-1.2 [facility] DistrictFluoroscopic procedure less than one hour btgdjlbk4172-08-81 05:20:00* Test Item Value Reference Range Interpretation Comments Aspartate Amino Transf (AST/SGOT) (test code = Aspartate Amino Transf (AST/SGOT)) 13 34 [facility] Centererum or plasma alanine aminotransferase measurement (enzymatic activity/volume)2020-04-11 05:20:00* Test Item Value Reference Range Interpretation Comments Alanine Aminotransferase (ALT/SGPT) (test code = 1742-6) < 6 0-55 [facility] Centererum or plasma protein measurement (mass/volume)2020-04-11 05:20:00* Test Item Value Reference Range Interpretation Comments Total Protein (test code = 2885-2) 5.6 6.5-8.1 [facility] Centererum or plasma albumin measurement (mass/volume)2020-04-11 05:20:00* Test Item Value Reference Range Interpretation Comments Albumin (test code = 1751-7) 2.3 3.5-5.0 [facility] DistrictPlasma globulin measurement (mass/volume) 2020-04-11 05:20:00* Test Item Value Reference Range Interpretation Comments Globulin (test code = 09227-3) 3.3 2.3-3.5 [facility]ererum or plasma albumin/globulin mass ywtkk3007-83-03 05:20:00* Test Item Value Reference Range Interpretation Comments Albumin/Globulin Ratio (test code = 1759-0) 0.7 0.8-2.0 [facility] Centererum or plasma alkaline phosphatase measurement (enzymatic activity/volume)2020-04-11 05:20:00* Test Item Value Reference Range Interpretation Comments Alkaline Phosphatase (test code = 6768-6) 91 40-150 [facility] Centererum or plasma thyrotropin measurement by detection limit <= 0.005 miu/l (units/volume)2020-04-11 05:20:00* Test Item Value Reference Range Interpretation Comments Thyroid Stimulating Hormone (TSH) (test code = 03871-0) 7.359 0.350-4.940 [facility] DistrictCT ABDOMEN/PELVIS YX6757-03-17 17:02:00 [facility] [address] [place] [address] Patient Name: SADA KARIMI MR #: [id number] : 1950 Age/Sex: 69/F Req #: [id number] Adm Physician: JUANY AWAD MD Ordered by: KENY PEÑA MD Report #: [id number] Location: MED/SURG3 Room/Bed: 288-1 Procedure: [id number] CT/CT ABDOMEN /PELVIS WO Exam Date: 04/10/20 Exam Time: 1600 REPORT STATUS: Signed EXAM: CT Abdomen and Pelvis WITHOUT contrast INDICATION: Stone protocol. COMPARISON: None. TECHNIQUE: Abdomen and pelvis were scanned utilizing a multidetector helical scanner from the lung base to [...] annular calcifications. Trace pericardial effusion. Mild cardiomegaly. León ry atherosclerosis. Bronchial wall thickening with minimal patchy opacities in the bilateral lower lobes. HEPATOBILIARY: No focal hepatic lesions. No biliary ductal dilation. GALLBLADDER: Status post cholecystectomy. [...] the level of the anus. Surrounding inflammatory changes. No specific findings of osteomyelitis. Skin folds [...] MD CHEST SINGLE (PORTABLE)2020-04-10 15:05:00 [place] [address] Patient Name: SADA KARIMI MR #: [id number] : 1950 Age/Sex: 69/F Req #: [id number] Adm Physician: Ordered by: HÉCTOR THOMSON DEBURRING MACHINE OPERATOR Report #: [id number] Location: ER Room/Bed: Procedure: [id number] DX/CHEST SI NGLE (PORTABLE) Exam Date: 04/10/20 [...] on 04/10/20 1506 COPY TO: HÉCTOR THOMSON DEBURRING MACHINE OPERATOR Prothrombin time (PT) in platelet poor plasma by coagulation sskmc8886-03-51 13:10:00* Test Item Value Reference Range Interpretation Comments Prothrombin Time (test code = 5902-2) 13.4 11.9-14.5 [facility] DistrictINR in Platelet poor plasma by Coagulation uxeki3244-64-33 13:10:00* Test Item Value Reference Range Interpretation Comments Prothromb Time International Ratio (test code = 6301-6) 0.96 Oral Anticoagulant Therapy INR Values:1. Low Intensity Therapy 1.5 - 2.02 . Moderate Intensity Therapy 2.0 - 3.03. High Intensity Therapy(1) 2.5 - 3. 54. High Intensity Therapy(2) 3.0 - 4.05. Panic Value INR > 5.0 [facility] DistrictActivated partial thromboplastin time (aPTT) in platelet poor plasma by coagulation lbdtj3539-83-95 13:10:00* Test Item Value Reference Range Interpretation Comments Activated Partial Thromboplast Time (test code = 11492-6) 34.3 23.8-35.5 [facility] DistrictUrine color ewxhsamswvzde4335-93-43 13:10:00* Test Item Value Reference Range Interpretation Comments Urine Color (test code = 5778-6) ORANGE YELLOW [facility] DistrictUrine cmgyluj0451-22-62 13:10:00* Test Item Value Reference Range Interpretation Comments Urine Clarity (test code = 83137-3) CLOUDY CLEAR [facility] Centerpecific gravity of Urine by Test strip 2020-04-10 13:10:00* Test Item Value Reference Range Interpretation Comments Urine Specific [place] (test code = 5811-5) >=1.030 1.010-1.02 5 [facility] DistrictUrine pH measurement by automated test vofgf3305-11-76 13:10:00* Test Item Value Reference Range Interpretation Comments Urine pH (test code = 84315-0) 6.5 5-7 [facility] DistrictUrine leukocyte esterase detection by qgzjwcyn4887-74-74 13:10:00* Test Item Value Reference Range Interpretation Comments Urine Leukocyte Esterase (test code = 5799-2) LARGE NEGATIVE [facility] DistrictUrine nitrite fjyhmblzi3624-07-73 13:10:00* Test Item Value Reference Range Interpretation Comments Urine Nitrite (test code = 79895-0) NEGATIVE NEGATIVE [facility] protein measurement by test strip (mass/volume)2020-04-10 13:10:00* Test Item Value Reference Range Interpretation Comments Urine Protein (test code = 5804-0) >=300 NEGATIVE [facility] glucose vgvglqarg2338-24-48 13:10:00* Test Item Value Reference Range Interpretation Comments Urine Glucose (UA) (test code = 2349-9) NEGATIVE NEGATIVE [facility] ketones detection by automated test mrcbx1431-97-09 13:10:00* Test Item Value Reference Range Interpretation Comments Urine Ketones (test code = 20361-1) NEGATIVE NEGATIVE [facility] urobilinogen measurement by test strip (mass/volume)2020-04-10 13:10:00* Test Item Value Reference Range Interpretation Comments Urine Urobilinogen (test code = 09508-1) 1 0.2-1 [facility] total bilirubin measurement (mass/volume)2020-04-10 13:10:00* Test Item Value Reference Range Interpretation Comments Urine Bilirubin (test code = 1978-6) SMALL NEGATIVE [facility] erythrocytes gdzhadxaz5831-02-20 13:10:00* Test Item Value Reference Range Interpretation Comments Urine Blood (test code = 73629-8) LARGE NEGATIVE [facility] DistrictAutom[facility] urine sediment leukocyte count by microscopy (number/high power field)2020-04-10 13:10:00* Test Item Value Reference Range Interpretation Comments Urine WBC (test code = 5821-4) >50 0-5 [facility] DistrictErythrocytes detection in urine sediment by light uefsojjzcu9212-29-26 13:10:00* Test Item Value Reference Range Interpretation Comments Urine RBC (test code = 51399-9) >50 0-5 [facility] DistrictBacteria detection in urine sediment by light pykgfdvtdx8579-06-82 13:10:00* Test Item Value Reference Range Interpretation Comments Urine Bacteria (test code = 01301-6) MANY NONE [facility] DistrictEpithelial cells detection in urine sediment by light qtpunkimov6425-70-67 13:10:00* Test Item Value Reference Range Interpretation Comments Urine Epithelial Cells (test code = 24651-3) FEW NONE [facility] plasma creatine kinase measurement (enzymatic activity/volume)2020-04-10 13:10:00* Test Item Value Reference Range Interpretation Comments Creatine Kinase (test code = 2157-6) 11 29-168 [facility]rum or plasma creatine kinase MB measurement (mass/volume)2020-04-10 13:10:00* Test Item Value Reference Range Interpretation Comments Creatine Kinase MB (test code = 48405-8) 0.20 0-5.0 [facility] DistrictTroponin I measurement by highly sensitive enzyme opedbiuoiib3265-40-67 13:10:00* Test Item Value Reference Range Interpretation Comments Troponin I (test code = 92071-4) 0.003 0-0.300 [facility] DistrictBlood vhaazwr1088-10-02 13:10:00* Test Item Value Reference Range Interpretation Comments Blood Culture (test code = 50833694) NO GROWTH AFTER 24 HOURS [facility] DistrictBacterial urine nokpuhz9334-86-79 13:10:00* Test Item Value Reference Range Interpretation Comments Urine Culture (test code = 630-4) GRAM NEGATIVE BACILLUS [facility] DistrictBacterial urine whsxowk9292-74-06 13:10:00* Test Item Value Reference Range Interpretation Comments Urine Culture (test code = 630-4) PSEUDOMONAS AERUGINOSA [facility]8415[facility]-66 08:22:00* Test Item Value Reference Range Interpretation Comments TROPONIN-I (test code = TROPI) <0.015 ng/mL 0-0.045 N - CT ABD PELVIS W/[id number] 08:11:00 Name: SADA KARIMI [facility] : 1950 Age/S: 69 / F [address] [facility] Unit #: [id number] Loc: [place] [address] Phys: Carlos Townsend DO Acct: [id number] Dis Date: Status: REG ER PHONE #: [phone] Exam Date: 03/24/2020 2485 FAX #: [phone] Reason: abd pain EXAMS: CPT CODE: [id number] CT ABD PELVIS W/CONT 18582 HISTORY: Abdominal pain. COMPARISON: CT scan from [...] mm right renal pelvic stone. Excretion is visible on the right and not clearly seen on the left. Delayed enhancement as well on the left kidney. No pathologic adenopathy. Heavy atherosclerotic calcifications of the abdominal and pelvic vasculature which remains patent. No bowel obstruction or colitis or diverticulitis or e nteritis. Constipation. CT PELVIS: Appendix i s normal. Pelvic bowel loops are unobstructed with extensive sigmoid dive rticulosis. Fecal impaction in the rectosigmoid colon with mild pericolon ic inflammation. Correlate for stercoral colitis. Double-J stent on the left. Suprapubic catheter noted within the PAGE 1 Signed Report (CONTINUED) Name: SADA KARIMI [facility] : 1950 Age/S: 69 / F [address] [facility] Unit #: [id number] Loc: [facility] [place] [address] Phys: Carlos Townsend DO Acct: [id number] Dis Date: atus: REG ER PHONE #: [phone] Exam [facility] e: 03/24/2020 0754 FAX #: [phone] Reason: abd zuleika n EXAMS: CPT CODE: [id number] CT ABD PELVIS W/CONT 28196 <Continued> decompressed urinary bladder is well which [...] Avery M.D. CC: Carlos Townsend DO Technologist:Danielle Rea,RT(R),CT CTDI: DLP: Trnscb Date/Time: 03/24/2020 (810) t.[email or web address] Orig Print D/T: S: 03/24/2020 (813) PAGE 2 Signed Report BASIC METABOLIC [id number] 08:04:00* Test Item Value Reference Range Interpretation [...] CA) 8.0 mg/dL 8.5-10.1 L HEPATIC FUNCTION [id number] 08:04:00* Test Item Value Reference Range Interpretation [...] reference range due to change in reagent. [id number] 08:04:00* Test Item Value Reference Range Interpretation Comments LIPASE (test code = LIP) 66 U/L 73.0-393.0 L BASIC METABOLIC [id number] 07:16:00* Test Item Value Reference Range Interpretation [...] CA) 8.0 mg/dL 8.5-10.1 L HEPATIC FUNCTION [id number] 07:16:00* Test Item Value Reference Range Interpretation [...] TOTAL (test code = ALKP) IUnit/L 45-117 NLWEYE7161-13-11 07:16:00* Test Item Value Reference Range Interpretation Comments LIPASE (test code = LIP) U/L 73.0-393.0 BASIC METABOLIC [id number] 07:08:00* Test Item Value Reference Range Interpretation [...] code = CA) mg/dL 8.5-10.1 HEPATIC FUNCTION [id number] 07:08:00* Test Item Value Reference Range Interpretation [...] TOTAL (test code = ALKP) IUnit/L 45-117 AFDSVA1090-05-03 07:08:00* Test Item Value Reference Range Interpretation Comments LIPASE (test code = LIP) U/L 73.0-393.0 CBC W/O [id number] 06:33:00* Test Item Value Reference Range Interpretation [...] fL 6.7-11.0 N - XR CHEST 1 [id number] 06:21:00 FAX: Carlos Townsend DO [place]: B St: REG Name: SADA LANDAVERDE ALTA [facility] : [birth year] Age/S: 69/F [address] [facility] Unit #: [id number] Loc: [place] [address] Phys: Carlos Townsend DO Acct: [id number] Dis Date: Status: REG ER PHONE #: [phone] Exam Date: 03/24/2020 0604 FAX #: [phone] Reason: abd pain EXAMS: CPT CODE: [id number] XR CHEST 1 V 35710 - XR CHEST 1 V, 03/24/2020 5:49 AM Reason For Examination: abd pain Comparison: February 29, 2020 Location: R16 Findings LUNGS: No definite pulmonary edema or consolidation, although exam findings limited by low lung volumes PLEURA: No pleural effusions CARDIOMEDIASTINAL SILHOUETTE Unremarkable IMPRESSION: No plain film evidence of acute cardiopulmonary abnormality within the given limitations above Elect ronically Signed by Rosana Akers M.D. on 02/25 at 0621 Reported and signed by: Maximus Akers M.D. CC: Carlos Townsend DO Technologist: LUZ ESPINOZA JR Trnscrd Date/Time/By: 03/24/2020 (620) : By: [email or web address] Orig Print D/T: S: 03/24/2020 (623) PAGE 1 Signed Report URINALYSIS [id number] 06:19:00* Test Item Value Reference Range Interpretation Comments UA COLOR (test code = COLU) RED YELLOW A Previously reported result: ORANGE Edited by: XIOMY on 03/24/20:85019003/24/20 0619: COLOR previously reported as: ORANGE H [...] FEW #/LPF FEW Urine Source? Clean CatchURINALYSIS [id number] 06:17:00* Test Item Value Reference Range Interpretation [...] FEW Urine Source? Clean Catch- XR CYSTOURETHRO [id number] 13:42:00 FAX: Ashu Carlton MD [phone] [place]: St: [facility] FAX: Jaden Mcmahon [phone] Name: SADA KARIMI [facility] : 1950 Age/S: 69/F [address] [facility] Unit #: [id number] Loc: V.[address] [place] [address] Phys: Jaden Rodgers Acct: [id number] Dis Date: Status: ADM IN PHONE #: [phone] Exam Date: 03/11/2020 1330 FAX #: [phone] Reason: CYSTO EXAMS: CPT CODE: [id number] XR CYSTOURETHRO RETRO 62515 CLINICAL HISTORY: CYSTO TECHNIQUE: Intraoperative fluoroscopic images from retrograde urogram. Fluoroscopy time 18 seconds;D ose: 3.1 mGy. IMPRESSION: Left percutaneous ne phrostomy tube was removed and left ureteral stent was placed. Location: [facility] Electronically Signed by Caleb Salas MD on at 1342 Reported and signed by: Caleb Salas MD CC: Ashu Carlton MD; Jaden Rodgers M.D. Technologist: Felecia Mirza(Rose Mary) Trnscrd Date/Time/By: 03/11/2020 (5837) : By: [email or web address] Orig Print D/T: S: 03/11/2020 (5447) PAGE 1 Signed Report BASIC METABOLIC [id number] 05:57:00* Test Item Value Reference Range Interpretation [...] CA) 7.6 mg/dL 8.5-10.1 L CBC W/O [id number] 05:26:00* Test Item Value Reference Range Interpretation [...] 10.9 fL 6.7-11.[address]ODY FL[address]/[id number] 18:04:00* Test Item Value Reference Range Interpretation Comments FLUID SOURCE (test code = SOURCEFL) ABSCESS FLUID COLOR (test code = COLFL) PINKISH COLORLESS FLUID APPEARANCE (test code = APPFL) HAZY FLUID WBC AUTO (test code = WBCFLA) 589120 cells/uL FLUID RBC AUTO (test code = RBCFLA) 979686 cells/uL FLUID TOTAL CELLS (test code = TCFL) 362378 cells/uL >0 Fluid WBC RBC Type cells/uL [...] = REVIEW) PATHOLOGIST RODRÍGUEZ SHELLEY M.D.03/10/20REVIEWED - [facility] NEPHR CATH [id number] 15:23:00 Name: SADA KARIMI [facility] : 1950 Age/S: 69 / F [address] [facility] Unit #: [id number] Loc: [place] [address] Phys: Ashu Carlton MD Acct: [id number] Dis Date: Status: ADM IN PHONE #: [phone] Exam Date: 03/10/2020 1028 FAX #: [phone] Reason: EXAMS: CPT CODE: [id number] [facility] [place] [address] Fluoro Time: 322 DAP (Gy m2): 8.83 [...] was aspirated from the needle. Using the Flocations system, an 035 guidewire was inserted. A 5 [place] Kumpe catheter was then inserted into the proximal ureter. Contrast was injected and irregular filling defects were seen in the ureter consistent with curette material and probably also a stone. However this stone was not clearly identified due to other filling defects. The guidewire was then directed into the urinary bladder which have been decompressed with a Jansen catheter. 9 [place] peel-away sheath was inserted followed by insertion of a second guidewire. Subsequently, a 10 [place]an nephrostomy tube was inserted and coiled with its pigtail portion in the renal pelvis. Purulent urine was aspirated and samples were sent to the lab. A 5 [place] Omni Flush catheter was then advanced over the second guidewire and was positioned with its tip in the urinary bladder. This catheter was flushed and was then closed. The nephrostomy tube was also flushed, was sutured to the skin and connected to a drainage bag. No apparent complications. IMPRESSION: 1. Antegrade puncture of the mildly dilated left renal collecting system with sonographic guidance showed evidence of pyuria. A limited nephrostogram showed irregular filling defects consistent with pus within the collecting system. Mild hydronephrosis and mild hydroureter were present. 2. Successful insertion of a 10 [place]an nephrostomy tube. 3. Successful insertion of a temporary 5 [place]an nephroureteral internal/external tube. Fluoroscopy Time: 322 sec PAGE 1 Signed Report (CONTINUED) Name: INGRID SADA MASTERSON [facility] : [birth year] Age/S: 69 / F [address] [facility] Unit #: [id number] Loc: [place] [address] Phys: Ashu Carlton MD Acct: [id number] Dis Date: Status: ADM IN PHONE #: [phone] Exam Date: 03/10/2020 1029 FAX #: [phone] R dale: EXAMS: CPT CODE: [id number] [facility] [place] [address] Fluoro Time: 322 DAP (Gy m2): 8.83 Air Kerma (mGy): 77 <Continued> CAK : 77 mGy DAP : 8830 mGy sq cm Location code: [facility] at 1523 Reported and signed by: Gregorio Hartman M.D. CC: Ashu Carlton MD Technologist: Nicolle Fernandez Trnmtb Date/Time: 03/10/2020 (1523) [email or web address] Orig Print D/T: S: 03/10/2020 (8416) PAGE 2 Signed Report - [facility] NEPH [id number] 15:23:00 Name: SADA KARIMI [facility] : 1950 Age/S: 69 / F [address] Unit #: [id number] Loc: [place] [address] Phys: Kristina Carlton MD Acct: [id number] Di s Date: Status: ADM IN PHONE #: [phone] Exam Date: 03/10/2020 1029 FAX #: Reason: EXAMS: CPT CODE: [id number] [facility] NEPH CATH [address] Fluoro Time: 322 DAP (Gy m2): 8.83 Air Kerma (mGy): 77 EXAM: Antegrade nephrostogram with son ographic and fluoroscopic guidance; percutaneous nephrostomy; insertion of a nephroureteral tube; INFORMATION: Sepsis; left ureteral s tone; failed attempt at retrograde insertion of a [...] mid calyx. Small amount of dilute contrast ma terial was injected opacifying slightly dilated collecting system with irr egular filling defects. Pus was aspirated from the needle. Using the AccThe Simpleick system, an 035 guidewire was inserted. A 5 [place] Kumpe catheter was then inserted into the [...] been decompressed with a Jansen catheter. 9 [place] peel-away sheath was inserted followed by insertion of a second guidewire. Subsequently, a 10 [place]an nephrostomy tube was inserted and c oiled with its pigtail portion in the renal pelvis. Purulent urine w as aspirated and samples were sent to the lab. A [address] [place] [address] was then advanced [...] present. 2. Successful insertion of a 10 [place]an nephrostomy t ube. 3. Successful insertion of a temporary 5 [place]an nephroureteral internal/external tube. Fluoroscopy Time: 322 sec PAGE 1 Signed Report (CONTINUED) Name: SADA MAYFIELD [facility] : [birth year] Age/S: 69 / F [address] [facility] Unit #: [id number] Loc: [place] [address] Phys: Ashu Carlton MD Acct: [id number] Dis Date: Status: ADM IN PHONE #: [phone] Exam Date: 03/10/2020 1029 FAX #: [phone] R dale: EXAMS: CPT CODE: [id number] [facility] NEPH CATH [address] Fluoro Time: 322 DAP (Gy m2): 8.83 Air Kerma (mGy): 77 <Continued> CAK : 77 mGy DAP : 8830 mGy sq cm Location code: [facility] at 1523 Reported and signed by: Gregorio Hartman M.D. CC: Ashu Carlton MD Technologist: Nicolle Fernandez Trnscb Date/Time: 03/10/2020 (152) PennyR.GRW Orig Print D/T: S: 03/10/2020 (6059) PAGE 2 Signed Report - INJ NEPH NEW [id number] 15:23:00 Name: SADA KARIMI [facility] : 1950 Age/S: 69 / F [address] [facility] Unit #: [id number] Loc: [place] [address] Phys: Ashu Carlton MD Acct: [id number] Dis Date: Status: ADM IN PHONE #: [phone] Exam Date: 03/10/2020 1029 FAX #: [phone] Reason: EXAMS: CPT CODE: [id number] IN[facility] NEPH NEW ACCESS [address] Fluoro Time: 322 DAP (Gy m2): 8.83 [...] was aspirated from the needle. Using the Flocations system, an 035 guidewire was inserted. A 5 [place] Kumpe catheter was then inserted into the proximal ureter. Contrast was injected and irregular filling defects were seen in the ureter consistent with curette material and probably also a stone. However this stone was not clearly identified due to other filling defects. The guidewire was then directed into the urinary bladder which have been decompressed with a Jansen catheter. 9 [place]an peel-away sheath was inserted followed by insertion of a second guidewire. Subsequently, a 10 [place]an nephrostomy tube was inserted and coiled with its pigtail portion in the renal pelvis. Purulent urine was aspirated and samples were sent to the lab. A 5 [place] Omni Flush catheter was then advanced over the second guidewire and was positioned with its tip in the urinary bladder. This catheter was flushed and was then closed. The nephrostomy tube was also flushed, was sutured to the skin and connected to a drainage bag. No apparent complications. IMPRESSION: 1. Antegrade puncture of the mildly dilated left renal collecting system with sonographic guidance showed evidence of pyuria. A limited nephrostogram showed irregular filling defects consistent with pus within the collecting system. Mild hydronephrosis and mild hydroureter were present. 2. Successful insertion of a 10 [place]an nephrostomy tube. 3. Successful insertion of a temporary 5 [place]an nephroureteral internal/external tube. Fluoroscopy Time: 322 sec PAGE 1 Signed Report (CONTINUED) Name: INGRID MASTERSONSADA HOLM [facility] : [birth year] Age/S: 69 / F [address] [facility] Unit #: [id number] Loc: [place] [address] Phys: Ashu Carlton MD Acct: [id number] Dis Date: Status: ADM IN PHONE #: [phone] Exam Date: 03/10/2020 1029 FAX #: [phone] R dale: EXAMS: CPT CODE: [id number] INJ NEPH NEW ACCESS [address] Fluoro Time: 322 DAP (Gy m2): 8.83 Air Kerma (mGy): 77 <Continued> CAK : 77 mGy DAP : 8830 mGy sq cm Location code: [facility] at 1523 Reported and signed by: Gregorio Hartman M.D. CC: Ashu Carlton MD Technologist: Nicolle Fernandez Trnscb Date/Time: 03/10/2020 (152) [email or web address] Orig Print D/T: S: 03/10/2020 (1526) PAGE 2 Signed Report - USG NDL PLACEMENT (Bxg/Asp) 2020-03-10 15:23:00 Name: TREVSADA [facility] : 1950 Age/S: 69 / F [address] Unit #: [id number] Loc: [place] [address] Phys: Gregorio Hartman MD Acct: [id number] Dis Date: Status: ADM IN PHONE #: [phone] Exam Date: 03/10/2020 1021 FAX #: [phone] Reason: KIDNEY STONE EXAMS: CPT CODE: [id number] USG NDL PLACEMENT (Bxg/Asp) 49146 EXAM: Antegrade nephrostogram with sonographic and fluoroscopic [...] was aspirated from the needle. Using the Flocations system, an 035 guidewire was inserted. A 5 [place]an Kumpe catheter was then inserted into the proximal ureter. Contrast was injected and irregular filling defects were seen in the ureter consistent with curette material and probably also a stone. However this stone was not clearly identified due to other filling defects. The guidewire was then directed into the urinary bladder which have been decompressed with a Jansen catheter. 9 [place]an peel-away sheath was inserted followed by insertion of a second guidewire. Subsequently, a 10 [place]an nephrostomy tube was inserted and coiled with its pigtail portion in the renal pelvis. Purulent urine was aspirated and samples were sent to the lab. A 5 [place]an Omni Flush catheter was then advanced over the second guidewire and was positioned with its tip in the urinary bladder. This catheter was flushed and was then closed. The nephrostomy tube was also flushed, was sutured to the skin and connected to a drainage bag. No apparent complications. IMPRESSION: 1. Antegrade puncture of the mildly dilated left renal collecting system with sonographic guidance showed evidence of pyuria. A limited nephrostogram showed irregular filling defects consistent with pus within the collecting system. Mild hydronephrosis and mild hydroureter were present. 2. Successful insertion of a 10 Bel[place]an nephrostomy tube. 3. Successful insertion of a temporary 5 [place]an nephroureteral internal/external tube. PAGE 1 Signed Report (CONTINUED) Name: SADA KARIMI [facility] : 1950 Age/S: 69 / F [address] [facility] Unit #: [id number] Loc: [place] [address] Phys: Gregorio Hartman MD Acct: [id number] Dis Date: Status: ADM IN PHONE #: [phone] Exam Date: 03/10/2020 1021 FAX #: [phone] Reason: KIDNEY STONE EXAMS: CPT CODE: [id number] USG NDL PLACEMENT (Bxg/Asp) 14181 <Continued> Fluoroscopy Time: 322 sec CAK : 77 mGy DAP : 8830 mGy sq cm Location code: [facility] at 1523 Reported and signed by: Gregorio Hartman M.D. CC: Ashu Carlton MD Technologist: SUELLEN HUDDLESTON RT(R),[facility] [place] Date/Time: 03/10/2020 (1523) [email or web address] Orig Print D/T: S: 03/10/2020 (1526) Probe: PAGE 2 Signed Report BODY FLUID CELL [id number] 13:11:00* Test Item Value Reference Range Interpretation Comments FLUID SOURCE (test code = SOURCEFL) ABSCESS FLUID COLOR (test code = COLFL) PINKISH COLORLESS FLUID APPEARANCE (test code = APPFL) HAZY FLUID WBC AUTO (test code = WBCFLA) 798882 cells/uL FLUID RBC AUTO (test code = RBCFLA) 512430 cells/uL FLUID TOTAL CELLS (test code = TCFL) 792038 cells/uL >0 Fluid WBC RBC Type cells/uL [...] code = REVIEW) PATHOLOGIST BODY FLUID CELL [id number] 13:00:00* Test Item Value Reference Range Interpretation Comments FLUID SOURCE (test code = SOURCEFL) FLUID COLOR (test code = COLFL) COLORLESS FLUID APPEARANCE (test code = APPFL) FLUID WBC (test code = WBCFL) per mm3 0-150 FLUID WBC AUTO (test code = WBCFLA) 400327 cells/uL FLUID RBC (test code = RBCFL) per mm3 0-50 FLUID RBC AUTO (test code = RBCFLA) 376442 cells/uL FLUID TOTAL CELLS (test code = TCFL) 644871 cells/uL >0 Fluid WBC RBC Type cells/uL [...] code = REVIEW) PATHOLOGIST BODY FLUID CELL CT/[id number] 10:57:00* Test Item Value Reference Range Interpretation Comments FLUID SOURCE (test code = SOURCEFL) FLUID COLOR (test code = COLFL) COLORLESS FLUID APPEARANCE (test code = APPFL) FLUID WBC (test code = WBCFL) per mm3 0-150 FLUID WBC AUTO (test code = WBCFLA) 267762 cells/uL FLUID RBC (test code = RBCFL) per mm3 0-50 FLUID RBC AUTO (test code = RBCFLA) 230280 cells/uL FLUID TOTAL CELLS (test code = TCFL) 445276 cells/uL >0 Fluid WBC RBC Type cells/uL cells/uL CSF (0-5) n/a Peritoneal n/a n/a Pleural n/a n/a Synovial <200 n/a CSF (0-30) n/a TOTAL CELLS COUNTED ON DIFF (test code = TOTCELLFL) cells REVIEWED BY (test code = REVIEW) PATHOLOGIST CBC W/MANUAL [id number] 06:28:00* Test Item Value Reference Range Interpretation [...] = IMMAT) 0 % 0-0 N PROTHROMBIN [id number] 05:07:00* Test Item Value Reference Range Interpretation [...] TOMORROW.SPECIMEN COMMENTS: FPR PROCEDURE TOMORROW. THROMBOPLASTIN TIME [id number] 05:07:00* Test Item Value Reference Range Interpretation Comments THROMBOPLASTIN TIME PARTIAL (test code = PTT) 44.6 seconds 25.0-36. 5 H IS PATIENT ON ANTICOAGULANTS? YLIST ANTICOAGULANTS ASPIRIN HEPARINSPECIM EN COMMENTS: FOR PROCEDURE TOMORROW.SPECIMEN COMMENTS: FPR PROCEDURE TOMORROW. CBC W/MANUAL [id number] 05:00:00* Test Item Value Reference Range Interpretation [...] MORPHOLOGY (test code = PLTMORPH) CBC W/MANUAL [id number] 05:00:00* Test Item Value Reference Range Interpretation [...] MORPHOLOGY (test code = PLTMORPH) CBC W/MANUAL [id number] 05:00:00* Test Item Value Reference Range Interpretation [...] MORPHOLOGY (test code = PLTMORPH) CBC W/MANUAL [id number] 04:59:00* Test Item Value Reference Range Interpretation [...] MORPHOLOGY (test code = PLTMORPH) CBC W/MANUAL [id number] 04:59:00* Test Item Value Reference Range Interpretation [...] MORPHOLOGY (test code = PLTMORPH) BASIC METABOLIC [id number] 04:56:00* Test Item Value Reference Range Interpretation [...] CA) 7.9 mg/dL 8.5-10.1 L BASIC METABOLIC [id number] 04:49:00* Test Item Value Reference Range Interpretation [...] code = CA) mg/dL 8.5-10.1 BASIC METABOLIC [id number] 05:09:00* Test Item Value Reference Range Interpretation [...] CA) 7.1 mg/dL 8.5-10.1 L BASIC METABOLIC [id number] 05:05:00* Test Item Value Reference Range Interpretation [...] CA) 7.1 mg/dL 8.5-10.1 L BASIC METABOLIC [id number] 11:48:00* Test Item Value Reference Range Interpretation [...] CA) 7.6 mg/dL 8.5-10.1 L CBC W/AUTO [id number] 03:31:00* Test Item Value Reference Range Interpretation [...] = MDIFF) NO, ONLY SCAN NEEDED DIFFERENTIAL [id number] 03:31:00* Test Item Value Reference Range Interpretation Comments STAIN ACCEPTABILITY (test code = STN ACCEPTABLE) STAIN ACCEPTABLE MORPHOLOGY COMMENT (test code = MOC) TEST NOT PERFORMED PLATELET ESTIMATE (test code = PLTEST) DECREASED PLATELET MORPHOLOGY (test code = PLTMORPH) NORMAL BASIC METABOLIC [id number] 02:25:00* Test Item Value Reference Range Interpretation [...] code = CA) 7.8 mg/dL 8.5-10.1 L [id number] 02:25:00* Test Item Value Reference Range Interpretation Comments PHOSPHORUS (test code = PHOS) 2.1 mg/dL 2.5-4.9 L [id number] 02:25:00* Test Item Value Reference Range Interpretation Comments MAGNESIUM (test code = MAG) 2.0 mg/dL 1.8-2.4 N CALCIUM [id number] 02:25:00* Test Item Value Reference Range Interpretation Comments CALCIUM IONIZED (test code = OCHOA) 1.20 mmol/L 1.12-1.32 N BASIC METABOLIC [id number] 02:18:00* Test Item Value Reference Range Interpretation [...] code = CA) 7.8 mg/dL 8.5-10.1 L [id number] 02:18:00* Test Item Value Reference Range Interpretation Comments PHOSPHORUS (test code = PHOS) 2.1 mg/dL 2.5-4.9 L [id number] 02:18:00* Test Item Value Reference Range Interpretation Comments MAGNESIUM (test code = MAG) 2.0 mg/dL 1.8-2.4 N CALCIUM [id number] 02:18:00* Test Item Value Reference Range Interpretation Comments CALCIUM IONIZED (test code = OCHOA) mmol/L 1.12-1.32 CBC W/AUTO [id number] 02:14:00* Test Item Value Reference Range Interpretation [...] = MDIFF) NO, ONLY SCAN NEEDED DIFFERENTIAL [id number] 02:14:00* Test Item Value Reference Range Interpretation Comments STAIN ACCEPTABILITY (test code = STN ACCEPTABLE) CABOT RINGS (test code = CAB) MORPHOLOGY COMMENT (test code = MOC) PLATELET ESTIMATE (test code = PLTEST) PLATELET MORPHOLOGY (test code = PLTMORPH) CBC W/AUTO [id number] 02:14:00* Test Item Value Reference Range Interpretation [...] = MDIFF) NO, ONLY SCAN NEEDED DIFFERENTIAL [id number] 02:14:00* Test Item Value Reference Range Interpretation Comments STAIN ACCEPTABILITY (test code = STN ACCEPTABLE) CABOT RINGS (test code = CAB) MORPHOLOGY COMMENT (test code = MOC) PLATELET ESTIMATE (test code = PLTEST) PLATELET MORPHOLOGY (test code = PLTMORPH) CBC W/AUTO [id number] 02:14:00* Test Item Value Reference Range Interpretation [...] = MDIFF) NO, ONLY SCAN NEEDED DIFFERENTIAL [id number] 02:14:00* Test Item Value Reference Range Interpretation Comments STAIN ACCEPTABILITY (test code = STN ACCEPTABLE) MORPHOLOGY COMMENT (test code = MOC) PLATELET ESTIMATE (test code = PLTEST) PLATELET MORPHOLOGY (test code = PLTMORPH) CBC W/AUTO [id number] 02:14:00* Test Item Value Reference Range Interpretation [...] = MDIFF) NO, ONLY SCAN NEEDED DIFFERENTIAL [id number] 02:14:00* Test Item Value Reference Range Interpretation Comments STAIN ACCEPTABILITY (test code = STN ACCEPTABLE) CABOT RINGS (test code = CAB) MORPHOLOGY COMMENT (test code = MOC) PLATELET ESTIMATE (test code = PLTEST) PLATELET MORPHOLOGY (test code = PLTMORPH) BASIC METABOLIC [id number] 02:13:00* Test Item Value Reference Range Interpretation [...] CALCIUM (test code = CA) mg/dL 8.5-10.1 [id number] 02:13:00* Test Item Value Reference Range Interpretation Comments PHOSPHORUS (test code = PHOS) mg/dL 2.5-4.9 [id number] 02:13:00* Test Item Value Reference Range Interpretation Comments MAGNESIUM (test code = MAG) mg/dL 1.8-2.4 CALCIUM [id number] 02:13:00* Test Item Value Reference Range Interpretation Comments CALCIUM IONIZED (test code = OCHOA) mmol/L 1.12-1.32 CALCIUM [id number] 05:02:00* Test Item Value Reference Range Interpretation Comments CALCIUM IONIZED (test code = OCHOA) 1.19 mmol/L 1.12-1.32 N REQUESTED A SERUM TUBE, NOTIFIED [id number] CBC W/AUTO [id number] 02:31:00* Test Item Value Reference Range Interpretation [...] = MDIFF) NO, ONLY SCAN NEEDED DIFFERENTIAL [id number] 02:31:00* Test Item Value Reference Range Interpretation [...] (test code = PLTMORPH) NORMAL BASIC METABOLIC [id number] 02:30:00* Test Item Value Reference Range Interpretation [...] code = CA) 7.8 mg/dL 8.5-10.1 L [id number] 02:30:00* Test Item Value Reference Range Interpretation Comments PHOSPHORUS (test code = PHOS) 2.5 mg/dL 2.5-4.9 N [id number] 02:30:00* Test Item Value Reference Range Interpretation Comments MAGNESIUM (test code = MAG) 2.0 mg/dL 1.8-2.4 N CALCIUM [id number] 02:30:00* Test Item Value Reference Range Interpretation Comments CALCIUM IONIZED (test code = OCHOA) mmol/L 1.12-1.32 BASIC METABOLIC [id number] 02:25:00* Test Item Value Reference Range Interpretation [...] CALCIUM (test code = CA) mg/dL 8.5-10.1 [id number] 02:25:00* Test Item Value Reference Range Interpretation Comments PHOSPHORUS (test code = PHOS) mg/dL 2.5-4.9 [id number] 02:25:00* Test Item Value Reference Range Interpretation Comments MAGNESIUM (test code = MAG) mg/dL 1.8-2.4 CALCIUM [id number] 02:25:00* Test Item Value Reference Range Interpretation Comments CALCIUM IONIZED (test code = OCHOA) mmol/L 1.12-1.32 CBC W/AUTO [id number] 02:11:00* Test Item Value Reference Range Interpretation [...] = MDIFF) NO, ONLY SCAN NEEDED DIFFERENTIAL [id number] 02:11:00* Test Item Value Reference Range Interpretation Comments STAIN ACCEPTABILITY (test code = STN ACCEPTABLE) CABOT RINGS (test code = CAB) MORPHOLOGY COMMENT (test code = MOC) PLATELET ESTIMATE (test code = PLTEST) PLATELET MORPHOLOGY (test code = PLTMORPH) CBC W/AUTO [id number] 02:11:00* Test Item Value Reference Range Interpretation [...] = MDIFF) NO, ONLY SCAN NEEDED DIFFERENTIAL [id number] 02:11:00* Test Item Value Reference Range Interpretation Comments STAIN ACCEPTABILITY (test code = STN ACCEPTABLE) CABOT RINGS (test code = CAB) MORPHOLOGY COMMENT (test code = MOC) PLATELET ESTIMATE (test code = PLTEST) PLATELET MORPHOLOGY (test code = PLTMORPH) CBC W/AUTO [id number] 02:11:00* Test Item Value Reference Range Interpretation [...] = MDIFF) NO, ONLY SCAN NEEDED DIFFERENTIAL [id number] 02:11:00* Test Item Value Reference Range Interpretation Comments STAIN ACCEPTABILITY (test code = STN ACCEPTABLE) MORPHOLOGY COMMENT (test code = MOC) PLATELET ESTIMATE (test code = PLTEST) PLATELET MORPHOLOGY (test code = PLTMORPH) CBC W/AUTO [id number] 02:11:00* Test Item Value Reference Range Interpretation [...] = MDIFF) NO, ONLY SCAN NEEDED DIFFERENTIAL [id number] 02:11:00* Test Item Value Reference Range Interpretation Comments STAIN ACCEPTABILITY (test code = STN ACCEPTABLE) CABOT RINGS (test code = CAB) MORPHOLOGY COMMENT (test code = MOC) PLATELET ESTIMATE (test code = PLTEST) PLATELET MORPHOLOGY (test code = PLTMORPH) [id number] 17:36:00* Test Item Value Reference Range Interpretation Comments VANCOMYCIN (test code = VANCO) 10.2 UG/ML 5.0-45.0 N WANTS LAB STILL COLLECTED V.LAB.LB2 03/03/20 1639CBC W/AUTO [id number] 04:19:00* Test Item Value Reference Range Interpretation [...] = MDIFF) NO, ONLY SCAN NEEDED DIFFERENTIAL [id number] 04:19:00* Test Item Value Reference Range Interpretation Comments STAIN ACCEPTABILITY (test code = STN ACCEPTABLE) STAIN ACCEPTABLE POIKILOCYTOSIS (test code = POIK) 2+ ANISOCYTOSIS (test code = ANISO) 1+ AMELIA CELLS (test code = AMELIA) 1+ NONE MORPHOLOGY COMMENT (test code = MOC) TEST NOT PERFORMED PLATELET ESTIMATE (test code = PLTEST) DECREASED PLATELET MORPHOLOGY (test code = PLTMORPH) NORMAL BASIC METABOLIC [id number] 04:16:00* Test Item Value Reference Range Interpretation [...] code = CA) 7.4 mg/dL 8.5-10.1 L [id number] 04:16:00* Test Item Value Reference Range Interpretation Comments PHOSPHORUS (test code = PHOS) 2.5 mg/dL 2.5-4.9 N [id number] 04:16:00* Test Item Value Reference Range Interpretation Comments MAGNESIUM (test code = MAG) 2.2 mg/dL 1.8-2.4 N CALCIUM [id number] 04:16:00* Test Item Value Reference Range Interpretation Comments CALCIUM IONIZED (test code = OCHOA) 1.17 mmol/L 1.12-1.32 N BASIC METABOLIC [id number] 04:04:00* Test Item Value Reference Range Interpretation [...] CALCIUM (test code = CA) mg/dL 8.5-10.1 [id number] 04:04:00* Test Item Value Reference Range Interpretation Comments PHOSPHORUS (test code = PHOS) mg/dL 2.5-4.9 [id number] 04:04:00* Test Item Value Reference Range Interpretation Comments MAGNESIUM (test code = MAG) mg/dL 1.8-2.4 CALCIUM [id number] 04:04:00* Test Item Value Reference Range Interpretation Comments CALCIUM IONIZED (test code = OCHOA) 1.17 mmol/L 1.12-1.32 N CBC W/AUTO [id number] 03:51:00* Test Item Value Reference Range Interpretation [...] = MDIFF) NO, ONLY SCAN NEEDED DIFFERENTIAL [id number] 03:51:00* Test Item Value Reference Range Interpretation Comments STAIN ACCEPTABILITY (test code = STN ACCEPTABLE) CABOT RINGS (test code = CAB) MORPHOLOGY COMMENT (test code = MOC) PLATELET ESTIMATE (test code = PLTEST) PLATELET MORPHOLOGY (test code = PLTMORPH) CBC W/AUTO [id number] 03:51:00* Test Item Value Reference Range Interpretation [...] = MDIFF) NO, ONLY SCAN NEEDED DIFFERENTIAL [id number] 03:51:00* Test Item Value Reference Range Interpretation Comments STAIN ACCEPTABILITY (test code = STN ACCEPTABLE) MORPHOLOGY COMMENT (test code = MOC) PLATELET ESTIMATE (test code = PLTEST) PLATELET MORPHOLOGY (test code = PLTMORPH) CBC W/AUTO [id number] 03:50:00* Test Item Value Reference Range Interpretation [...] = MDIFF) NO, ONLY SCAN NEEDED DIFFERENTIAL [id number] 03:50:00* Test Item Value Reference Range Interpretation Comments STAIN ACCEPTABILITY (test code = STN ACCEPTABLE) CABOT RINGS (test code = CAB) MORPHOLOGY COMMENT (test code = MOC) PLATELET ESTIMATE (test code = PLTEST) PLATELET MORPHOLOGY (test code = PLTMORPH) CBC W/AUTO [id number] 03:50:00* Test Item Value Reference Range Interpretation [...] = MDIFF) NO, ONLY SCAN NEEDED DIFFERENTIAL [id number] 03:50:00* Test Item Value Reference Range Interpretation Comments STAIN ACCEPTABILITY (test code = STN ACCEPTABLE) CABOT RINGS (test code = CAB) MORPHOLOGY COMMENT (test code = MOC) PLATELET ESTIMATE (test code = PLTEST) PLATELET MORPHOLOGY (test code = PLTMORPH) - XR SWLW FUNC W/C [id number] 15:24:00 FAX: Desi Mcmillan MD [phone] [place]: St: [facility] FAX: Shaun Benjamin MD Name: SADA KARIMI [facility] : 1950 Age/S: 69/F [address] [facility] Unit #: [id number] Loc: [address] [address] Phys: Desi Mcmillan MD Acct: [id number] Dis Date: Status: ADM IN PHONE #: [phone] Exam Date: 03/02/2020 1538 FAX #: [phone] Reason: DYSPHAGIA EXAMS: CPT CODE: [id number] XR SWLW FUNC W/C V 54372 EXAM: Modified barium swallow; INFORMATION: Dysphagia; IMPRESSION: 1. Silent aspiration was noticed with thin liquids via cup. 2. Laryngeal penetration was noticed with thin liquids wire cup and also with nectar via straw. Fluoroscopy Time: 119.2 sec CAK : 7.01 mGy Location code: [facility] at 1524 Reported and signed by: Gregorio Hartman M.D. CC: Desi Mcmillan MD; Shaun Benjamin MD Technologist: Rose Mary JIMENEZ (R) Date/Time/By: 03/02/2020 (8321) : By: ShirleyGRW Orig Print D/T: S: 03/02/2020 (7126) PAGE 1 Signed Report BASIC METABOLIC [id number] 04:33:00* Test Item Value Reference Range Interpretation [...] code = CA) 7.7 mg/dL 8.5-10.1 L [id number] 04:33:00* Test Item Value Reference Range Interpretation Comments PHOSPHORUS (test code = PHOS) 3.0 mg/dL 2.5-4.9 N [id number] 04:33:00* Test Item Value Reference Range Interpretation Comments MAGNESIUM (test code = MAG) 2.2 mg/dL 1.8-2.4 N CALCIUM [id number] 04:33:00* Test Item Value Reference Range Interpretation Comments CALCIUM IONIZED (test code = OCHOA) 1.17 mmol/L 1.12-1.32 N BASIC METABOLIC [id number] 04:32:00* Test Item Value Reference Range Interpretation [...] CALCIUM (test code = CA) mg/dL 8.5-10.1 [id number] 04:32:00* Test Item Value Reference Range Interpretation Comments PHOSPHORUS (test code = PHOS) mg/dL 2.5-4.9 [id number] 04:32:00* Test Item Value Reference Range Interpretation Comments MAGNESIUM (test code = MAG) mg/dL 1.8-2.4 CALCIUM [id number] 04:32:00* Test Item Value Reference Range Interpretation Comments CALCIUM IONIZED (test code = OCHOA) 1.17 mmol/L 1.12-1.32 N CBC W/MANUAL [id number] 04:26:00* Test Item Value Reference Range Interpretation [...] (test code = PLTMORPH) NORMAL CBC W/MANUAL [id number] 04:07:00* Test Item Value Reference Range Interpretation [...] MORPHOLOGY (test code = PLTMORPH) CBC W/MANUAL [id number] 04:07:00* Test Item Value Reference Range Interpretation [...] MORPHOLOGY (test code = PLTMORPH) CBC W/MANUAL [id number] 04:07:00* Test Item Value Reference Range Interpretation [...] MORPHOLOGY (test code = PLTMORPH) CBC W/MANUAL [id number] 04:06:00* Test Item Value Reference Range Interpretation [...] MORPHOLOGY (test code = PLTMORPH) CBC W/MANUAL [id number] 04:06:00* Test Item Value Reference Range Interpretation [...] MORPHOLOGY (test code = PLTMORPH) BASIC METABOLIC [id number] 15:09:00* Test Item Value Reference Range Interpretation [...] code = CA) 7.4 mg/dL 8.5-10.1 L [id number] 15:09:00* Test Item Value Reference Range Interpretation Comments PHOSPHORUS (test code = PHOS) 3.6 mg/dL 2.5-4.9 N [id number] 15:09:00* Test Item Value Reference Range Interpretation Comments MAGNESIUM (test code = MAG) 2.3 mg/dL 1.8-2.4 N BASIC METABOLIC [id number] 15:03:00* Test Item Value Reference Range Interpretation [...] CALCIUM (test code = CA) mg/dL 8.5-10.1 [id number] 15:03:00* Test Item Value Reference Range Interpretation Comments PHOSPHORUS (test code = PHOS) mg/dL 2.5-4.9 [id number] 15:03:00* Test Item Value Reference Range Interpretation Comments MAGNESIUM (test code = MAG) mg/dL 1.8-2.4 [id number] 13:05:00* Test Item Value Reference Range Interpretation Comments TROPONIN-I (test code = TROPI) 0.037 ng/mL 0-0.045 N COMMENTS TO THERMODYNAMICS PROFESSOR: COLLECT 3 HOURS AFTER PREVIOUS [id number] 10:40:00* Test Item Value Reference Range Interpretation Comments TROPONIN-I (test code = TROPI) 0.049 ng/mL 0-0.045 HH Results called to [id number] by [email or web address] 03/01/20 1040Critical results verified and read back by Nurse? YES [id number] 08:33:00* Test Item Value Reference Range Interpretation Comments TROPONIN-I (test code = TROPI) 0.068 ng/mL 0-0.045 HH Results called to [id number] by [email or web address] 03/01/20 0833Critical results verified and read back by Nurse? YES COMMENTS TO THERMODYNAMICS PROFESSOR: COLLECT 3 HOURS AFTER PREVIOUS SAMPLELIPID [...] result is a direct measurement.========= BASIC METABOLIC [id number] 03:39:00* Test Item Value Reference Range Interpretation [...] code = CA) 6.8 mg/dL 8.5-10.1 L [id number] 03:39:00* Test Item Value Reference Range Interpretation Comments PHOSPHORUS (test code = PHOS) 3.5 mg/dL 2.5-4.9 N [id number] 03:39:00* Test Item Value Reference Range Interpretation Comments MAGNESIUM (test code = MAG) 1.6 mg/dL 1.8-2.4 L CALCIUM [id number] 03:39:00* Test Item Value Reference Range Interpretation Comments CALCIUM IONIZED (test code = OCHOA) 1.07 mmol/L 1.12-1.32 L BASIC METABOLIC [id number] 03:19:00* Test Item Value Reference Range Interpretation [...] code = CA) 6.8 mg/dL 8.5-10.1 L [id number] 03:19:00* Test Item Value Reference Range Interpretation Comments PHOSPHORUS (test code = PHOS) 3.5 mg/dL 2.5-4.9 N [id number] 03:19:00* Test Item Value Reference Range Interpretation Comments MAGNESIUM (test code = MAG) 1.6 mg/dL 1.8-2.4 L CALCIUM [id number] 03:19:00* Test Item Value Reference Range Interpretation Comments CALCIUM IONIZED (test code = OCHOA) mmol/L 1.12-1.32 BASIC METABOLIC [id number] 03:15:00* Test Item Value Reference Range Interpretation [...] code = CA) 6.8 mg/dL 8.5-10.1 L [id number] 03:15:00* Test Item Value Reference Range Interpretation Comments PHOSPHORUS (test code = PHOS) mg/dL 2.5-4.9 [id number] 03:15:00* Test Item Value Reference Range Interpretation Comments MAGNESIUM (test code = MAG) mg/dL 1.8-2.4 CALCIUM [id number] 03:15:00* Test Item Value Reference Range Interpretation Comments CALCIUM IONIZED (test code = OCHOA) mmol/L 1.12-1.32 CBC W/MANUAL [id number] 03:13:00* Test Item Value Reference Range Interpretation [...] IMMAT) 0 % 0-0 N CBC W/MANUAL [id number] 02:50:00* Test Item Value Reference Range Interpretation [...] MORPHOLOGY (test code = PLTMORPH) CBC W/MANUAL [id number] 02:47:00* Test Item Value Reference Range Interpretation [...] MORPHOLOGY (test code = PLTMORPH) CBC W/MANUAL [id number] 02:47:00* Test Item Value Reference Range Interpretation [...] MORPHOLOGY (test code = PLTMORPH) CBC W/MANUAL [id number] 02:47:00* Test Item Value Reference Range Interpretation [...] MORPHOLOGY (test code = PLTMORPH) CBC W/MANUAL [id number] 02:47:00* Test Item Value Reference Range Interpretation [...] PLATELET MORPHOLOGY (test code = PLTMORPH) URINALYSIS [id number] 22:37:00* Test Item Value Reference Range Interpretation [...] per HPF NONE Urine Source? Clean CatchURINALYSIS [id number] 22:37:00* Test Item Value Reference Range Interpretation [...] Source? Clean Catch- CT ABD PELVIS W/O [id number] 22:00:00 Name: SADA KARIMI [facility] : 1950 Age/S: 69 / F [address] [facility] Unit #: [id number] Loc: [place] [address] Phys: Erick Frias MD Acct: [id number] Di s Date: Status: [facility] ER PHONE #: [phone] Exam Date: 02/29/20202148 FAX #: Reason: ttp lower abd EXAMS: CPT CODE: [id number] CT ABD PELVIS W/O CONT 61658 REASON FOR EXAM: ttp lower abd EXAM ORDER DATE: 02/29/2020 9:28 PM Ordering M.D.: Leilani Frias MD PROCEDURE: - CT ABD PELVIS W/O CONT non contrast axial CT images were acquired through the abdomen/pelvis at 5 mm intervals. Sagittal and coronal reformatted images were generated. Autom ated exposure control was utilized for this reduction. Phase s of contrast: None COMPARISON: CT of the abdomen and pelvis Octob er 9, 2019 FINDINGS: The absence of IV contrast bowens its sensitivity of this exam for the detection of soft tissue pathology Visualized thorax: Trace bilateral pleural effusions with compressive subsegmental atelectasis in the underlying lower lobes. [...] 1 Signed Report (CONTINUED) Name: SADA KARIMI [facility] ast : 1950 Age/S: 69 / F [address] [facility] Unit #: [id number] Loc: [place] [address] Phys: Leilani Frias MD Acct: [id number] Dis Date: Status: REG ER PHONE #: [phone] Exam Date: 02/29/20202148 FAX #: [phone] Reason: ttp lower abd EXAMS: CPT CODE: [id number] CT ABD PELVIS W/O CONT 64044 < Continued> sigmoid and descending colon without [...] with dendriform pulmonary ossifications chronic aspiration. Location: [facility] at 0 Reported and signed by: Caleb Salas MD CC: Leilani Frias MD Technologist:Cristal Hamilton RT(R); [facility] Doa CTDI: DLP: Trnscb Date/Time: 02/29/2020 (2199) t.[email or web address] Orig Print D/T: S: 02/29/2020 (2202) PAGE 2 Signed Report LACTIC [id number] 21:02:00 * Test Item Value Reference Range Interpretation Comments LACTIC ACID (test code = LACT) 1.6 mmol/L 0.4-1.9 N - CT HEAD/BRAIN W/O [id number] 20:57:00 Name: SADA KARIMI [facility] : 1950 Age/S: 69 / F [address] [facility] Unit #: [id number] Loc: [place] [address] Phys: Leilani Frias MD Acct: [id number] Dis Date: Status: REG ER PHONE #: [phone] Exam Date: 02/29/20202049 FAX #: [phone] Reason: AMS EXAMS: CPT CODE: [id number] CT HEAD/BRAIN W/O CONT 61347 HISTORY: AMS TECHNIQUE: Noncontrast 2.5 mm axial [...] shift. No effacement of the sulci or kay- white matter interface. 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 Visualized paranasal sinuses are clear. Mastoid air cells and middle ear cavities are clear. There is cerumen in the bilateral external auditory canals. Orbital contents are unremarkable. IMPRESSION: No acute intracranial process or appreciable change from prior CT scan of the brain. Location: [facility] at 2057 Reported and signed by: Caleb Salas MD CC: Leilani Alanis MD Technologist:Cristal Hamilton RT (R); Bladimir Dyer CTDI: DLP: Trnscb Date/Time: 02/29/2020 (2056) Penny WhiteRR31 Orig Print D/T: S: 02/29/2020 (2100) PAGE 1 Signed Report - XR CHEST 1 V 2020-02-29 20:16:00 FAX: Ashley Denis [phone] [place]: St: REG FAX: Leilani Bedolla [phone] Name: SADA KARIMI [facility] : 1950 Age/S: 69/F [address] [facility] Unit #: [id number] Loc: [place] [address] Phys: Ashley Atkinson MD Acct: [id number] Dis Date: Status: REG ER PHONE #: [phone] Exam Date: 02/29/2020823 FAX #: [phone] Reason: line placement EXAMS: CPT CODE: [id number] XR CHEST 1 V 46721 REASON FOR EXAM: line placement Exam Order Date: 02/29/2020 8:05 PM Ordering Caitie: Ashley Atkinson MD PROCEDURE: - XR CHEST 1 V COMPARISON: Chest x-ray earlier today FINDINGS/ IMPRESSION: A right IJ central line has been placed into the right atrium. No postprocedure pneumothorax. Remaining findings are unchanged. Location: [facility] at 2016 Reported and signed by: Caleb Salas MD CC: Ashley Atkinson MD; Leilani Frias MD Technologist: BHARTI MARIN, RT(R); ... Trnscrd Date/Time/By: 02/29/2020 (2015) : By: [email or web address] Orig Print D/T: S: 02/29/2020 (2023) PAGE 1 Signed Report CBC W/MANUAL DIFF 2020-02-29 17:24:00* Test Item Value Reference Range Interpretation [...] IMMAT) 0 % 0-0 N B-TYPE NATRIURETIC [id number] 17:22:00* Test Item Value Reference Range Interpretation Comments B-TYPE NATRIURETIC PEPTIDE (test code = BNP) 388.52 pgram/mL 0-100 H BASIC METABOLIC [id number] 17:11:00* Test Item Value Reference Range Interpretation [...] CA) 8.7 mg/dL 8.5-10.1 N HEPATIC FUNCTION [id number] 17:11:00* Test Item Value Reference Range Interpretation [...] reference range due to change in reagent. [id number] 17:11:00* Test Item Value Reference Range Interpretation Comments LIPASE (test code = LIP) 30 U/L 73.0-393.0 L [id number] 17:11:00* Test Item Value Reference Range Interpretation Comments TROPONIN-I (test code = TROPI) 0.076 ng/mL 0-0.045 HH Results called to [id number] by [email or web address] 02/29/20 1710Critical results verified and read back by Nurse? Y LACTIC [id number] 17:10:00* Test Item Value Reference Range Interpretation Comments LACTIC ACID (test code = LACT) 6.7 mmol/L 0.4-1.9 HH Results called to [id number] by [email or web address] 02/29/20 1710Critical results verified and read back by Nurse? Y PROTHROMBIN [id number] 16:58:00* Test Item Value Reference Range Interpretation [...] (2.5-3.5) IS PATIENT ON ANTICOAGULANTS? NTHROMBOPLASTIN TIME [id number] 16:58:00* Test Item Value Reference Range Interpretation Comments THROMBOPLASTIN TIME PARTIAL (test code = PTT) 52.1 seconds 25.0-36. 5 H IS PATIENT ON ANTICOAGULANTS? N- XR CHEST 1 [id number] 16:57:00 FAX: Leilani Bedolla [phone] [place]: B St: REG Name: SADA LANDAVERDE [facility] : [birth year] Age/S: 69/F [address] [facility] Unit #: [id number] Loc: LENI Culp [address] Phys: Leilani Frias MD Acct: [id number] Dis Date: Status: REG ER PHONE #: [phone] Exam Date: 02/29/2020 1635 FAX #: [phone] Reason: CODE SEPSIS EXAMS: CPT CODE: [id number] XR CHEST 1 V [id number] REASON FOR EXAM: CODE SEPSIS Exam Order Date: 02/29/2020 4:23 PM Ordering M.D.: Leilani Frias MD PROCEDURE: - XR CHEST [...] normal limits. IMPRESSION: No acute cardiopulmonary process. Cardiomegaly is unchanged from prior exam. Location: [facility] [place] at 1657 Reported and signed by: Caleb Salas MD CC: Leilani Frias MD Technologist: Rei Bell, RT(R; ... Trnscrd Date/Time/By: 02/29/2020 (1656) : By: [email or web address] .[email or web address] Orig Print D/T: S: 02/29/2020 (9304) PAGE 1 Signed Report BASIC METABOLIC [id number] 16:56:00* Test Item Value Reference Range Interpretation [...] code = CA) mg/dL 8.5-10.1 HEPATIC FUNCTION [id number] 16:56:00* Test Item Value Reference Range Interpretation [...] TOTAL (test code = ALKP) IUnit/L 45-117 [id number] 16:56:00* Test Item Value Reference Range Interpretation Comments LIPASE (test code = LIP) U/L 73.0-393.0 [id number] 16:56:00* Test Item Value Reference Range Interpretation Comments TROPONIN-I (test code = TROPI) ng/mL 0-0.045 CBC W/MANUAL [id number] 16:49:00* Test Item Value Reference Range Interpretation [...] MORPHOLOGY (test code = PLTMORPH) CBC W/MANUAL [id number] 16:48:00* Test Item Value Reference Range Interpretation [...] MORPHOLOGY (test code = PLTMORPH) CBC W/MANUAL [id number] 16:48:00* Test Item Value Reference Range Interpretation [...] MORPHOLOGY (test code = PLTMORPH) CBC W/MANUAL [id number] 16:48:00* Test Item Value Reference Range Interpretation [...] MORPHOLOGY (test code = PLTMORPH) CBC W/MANUAL [id number] 16:48:00* Test Item Value Reference Range Interpretation [...] (test code = PLTMORPH) - XR FLUORO [id number] 14:03:00 Name: SADA KARIMI [facility] : 1950 Age/S: 68 / F [address] [facility] Unit #: [id number] Loc: [place] [address] Phys: Andrew Hedrick II, MD Acct: [id number] Dis Date: Status: ADM IN PHONE #: [phone] Exam Date: 09/03/2019 1305 FAX #: [phone] Reason: EXAMS: CPT CODE: [id number] XR FLUORO NDL 18653 Fluoro Time: 33 DAP (Gy m2): 2.91 [...] sheath into the urinary bladder. A 22 Bel[place]an Jansen catheter was advanced over the guidewire into the urinary bladder. The retention balloon was inflated. Contrast was injected to document intraluminal position of the new suprapubic catheter MEDICATIONS: None COMPLICATIONS: None Blood loss: Less than 5 mL Fluoroscopic time: 33 seconds Radiation dose: 9 mGy IMPRESSION: Technically successful placement of 22 Belizean suprapubic catheter at 1403 Reported and signed by: Richie Howard M.D. CC: Andrew Hedrick II, MD Technologist: Kena SOSA(R) Trnscb Date/Time: 09/03/2019 (9092) ClaireL Orig Print D/T: S: 09/03/2019 (2856) PAGE 1 Signed Report PROTHROMBIN [id number] 12:38:00* Test Item Value Reference Range Interpretation [...] PHLEBO TOMIST: NEED STAT FOR PROCEDURETHROMBOPLASTIN TIME [id number] 12:38:00* Test Item Value Reference Range Interpretation Comments THROMBOPLASTIN TIME PARTIAL (test code = PTT) 38.3 seconds 25.0-36. 5 H IS PATIENT ON ANTICOAGULANTS? YLIST ANTICOAGULANTS ASPIRINCOMMENTS TO PHLEBO TOMIST: NEED STAT FOR PROCEDURE- CT ABD PELVIS W/O [id number] 18:52:00 Name: SADA KARIMI [facility] : 1950 Age/S: 68 / F [address] [facility] Unit #: [id number] Loc: [place] [address] Phys: Flavio Michele MD Acct: [id number] Di s Date: Status: REG ER PHONE #: [phone] Exam Date: 09/02/2019 1645 FAX #: [phone] Reason: abd pain, suprapubic cath placement Report Has Been Amended EXAMS: CPT CODE: [id number] CT ABD PELVIS W/O CONT 90984 Addendum - 09/02/2019 SIGNED 09/02 ADDENDUM: [id number] CT/CTABPLWO The s uprapubic catheter balloon is within the urinary bladder. No radiopaque ob struction is seen within the catheter lumen. The catheter does not appear to enter the urethra. Electronically Signed by Caleb Salas MD on 07/2019 at 1852 Reported and signed by: Caleb Salas MD Transcribed: 09/02/2019 (1851) [email or web address] Report REASON FOR EXAM: abd pain, suprapubic [...] 1 Signed Report (CONTINUED) Name: SADA KARIMI [facility] : 1950 Age/S: 68 / F [address] Unit #: [id number] Loc: [place] [address] Phys: Theodore Michele MD Acct: [id number] Dis Date: Status: REG ER PHONE #: [phone] Exam Date: 09/02/2019 1645 FAX #: [phone] Reason: abd pain, suprapubic cath placement Report Has Been Amended EXAMS: CPT CODE: [id number] CT ABD PELVIS W/O CONT 25071 <Continued> Spleen: Grossly normal Adrenal glands: Grossly [...] Signed R eport (CONTINUED) Name: SADA KARIMI [facility] : 1950 Age/S: 68 / F [address] Unit #: [id number] Loc: [place] [address] Phys: Theodore Michele MD Acct: [id number] Dis Date: Status: REG ER PHONE #: [phone] Exam Date: 09/02/2019 1645 FAX #: [phone] Reason: abd pain, suprapubic cath placement Report Has Been Amended EXAMS: CPT CODE: [id number] CT ABD PELVIS W/O CONT 54152 <Continued> CC: Theodore Michele MD Technologist:Holley Liao RT(R),CT; CTDI: DLP: Trnscb Date/Time: 09/02/2019 (1751) [email or web address] Orig Print D/T: S: 09/02/2019 (960) PAGE 3 Signed Report - CT ABD PELVIS W/O [id number] 17:52:00 Name: SADA KARIMI [facility] : 1950 Age/S: 68 / F [address] Unit #: [id number] Loc: [place] [address] Phys: Flavio Michele MD Acct: [id number] Di s Date: Status: REG ER PHONE #: Exam Date: 09/02/2019 1645 FAX #: Reason: abd pain, suprapubic cath placement EXAMS: CPT CODE: [id number] CT ABD PELVIS W/O CONT 11531 REASON FOR EXAM: abd pain, suprapubic cath placement EXAM ORDER DATE: 09/02/2019 3:40 PM Ordering M.DZakiya: Theodore Michele [...] of the colon is within normal limits. Appendix, stomach, and small bowel are within normal limits PAGE 1 Signed Report (CONTINUED) Name: SADA KARIMI [facility] : 1950 Age/S: 68 / F [address] [facility] Unit #: [id number] Loc: [place] [address] Phys: Theodore Michele MD Acct: [id number] Dis Date: Status: REG ER PHONE #: [phone] Exam Date: 09/02/2019 1645 FAX #: Reason: abd pain, suprapubic cath placement EXAMS: CPT CODE: [id number] CT ABD PELVIS W/O CONT 03655 <Continued> Abdominal vascular structures: Atherosclerotic disease is scattered throughout the abdominal aorta, splenic artery, proximal superior mesenteric artery, and the iliac arteries Peritoneum and retroperitoneum: No free fluid or free air. No omental or mesenteric masses. No abnormal lymph nodes. Musculoskeletal structures and abdominal wall: Degenerative changes are seen throughout the thoracic and lumbar spine. IMPRESSION: Obstructing 5 mm stone in the proximal left ureter. Additional stones are seen in the inferior pole of the left kidney. Diverticulosis of the descending and sigmoid colon without evidence of diverticulitis. Coronary and aortic atherosclerosis. El ectronically Signed by Caleb Salas MD on 09/02/2019 at 1752 Reported and signed by: Caleb Salas MD CC: Theodore Michele MD Technologist:Holley Liao RT( R),CT; CTDI: DLP: Trnscb Date/Time: 09/02/2019 (5994) [email or web address] Orig Print D/T: S: 09/02/2019 (8299) PAGE 2 Signed Report BASIC METABOLIC PANEL [...] CA) 8.8 mg/dL 8.5-10.1 N HEPATIC FUNCTION [id number] 17:01:00* Test Item Value Reference Range Interpretation [...] reference range due to change in reagent. [id number] 17:01:00* Test Item Value Reference Range Interpretation Comments LIPASE (test code = LIP) 116 U/L 73.0-393.0 N BASIC METABOLIC [id number] 16:53:00* Test Item Value Reference Range Interpretation [...] code = CA) mg/dL 8.5-10.1 HEPATIC FUNCTION [id number] 16:53:00* Test Item Value Reference Range Interpretation [...] TOTAL (test code = ALKP) IUnit/L 45-117 [id number] 16:53:00* Test Item Value Reference Range Interpretation Comments LIPASE (test code = LIP) U/L 73.0-393.0 CBC W/O [id number] 16:44:00* Test Item Value Reference Range Interpretation [...] 9.7 fL 6.7-11.0 N - [facility] W/C [id number] 11:41:00 FAX: Jackelin Parham MD [phone] [place]: B St: DIS FAX: Betty Mejia [phone] Name: SADA KARIMI [facility] : 1950 Age/S: 68/F [address] Unit #: [id number] Loc: [address] [place] [address] Phys: Betty 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 No evidence of aspiration. Fluoroscopy Time: 134 sec CAK : 9.83 mGy at 1141 Reported and signed by: Gregorio Hartman M.D. CC: Jackelin Kurtz MD; Betty Mejia NP chnologist: Wanda SOSA(Rose Mary) Trnscrd Date/ Time/By: 07/02/2019 (1141) : By: ShirleyGRW PAGE 1 Signed Report [id number] 16:22:00* Test Item Value Reference Range Interpretation Comments GLUBED (test code = GLUBED) 72 mg/dL 74-106 L Performed by certified steam plant control room operator at [facility]2019-08-07 11:41:00* Test Item Value Reference Range Interpretation Comments GLUBED (test code = GLUBED) 96 mg/dL 74-106 N Performed by certified steam plant control room operator at [facility] [id number] 08:24:00* Test Item Value Reference Range Interpretation Comments GLUBED (test code = GLUBED) 68 mg/dL 74-106 L Performed by certified steam plant control room operator at [facility]2019-08-06 20:31:00* Test Item Value Reference Range Interpretation Comments GLUBED (test code = GLUBED) 81 mg/dL 74-106 N Performed by certified steam plant control room operator at [facility] [id number] 15:45:00* Test Item Value Reference Range Interpretation Comments GLUBED (test code = GLUBED) 105 mg/dL 74-106 N Performed by certified steam plant control room operator at [facility] [id number] 11:46:00* Test Item Value Reference Range Interpretation Comments GLUBED (test code = GLUBED) 120 mg/dL 74-106 H Performed by certified steam plant control room operator at [facility]2019-08-06 08:01:00* Test Item Value Reference Range Interpretation Comments GLUBED (test code = GLUBED) 80 mg/dL 74-106 N Performed by certified steam plant control room operator at [facility] BASIC METABOLIC [id number] 05:51:00* Test Item Value Reference Range Interpretation [...] CA) 7.7 mg/dL 8.5-10.1 L BASIC METABOLIC [id number] 05:51:00* Test Item Value Reference Range Interpretation [...] CA) 7.7 mg/dL 8.5-10.1 L CBC W/AUTO [id number] 05:31:00* Test Item Value Reference Range Interpretation [...] DIFF REQUIRED (test code = MDIFF) NO [id number] 21:07:00* Test Item Value Reference Range Interpretation Comments GLUBED (test code = GLUBED) 81 mg/dL 74-106 N Performed by certified steam plant control room [facility] [id number] 16:38:00* Test Item Value Reference Range Interpretation Comments GLUBED (test code = GLUBED) 78 mg/dL 74-106 N Performed by certified steam plant control room operator at [facility] BASIC METABOLIC [id number] 13:24:00* Test Item Value Reference Range Interpretation Comments SODIUM (test code = NA) 145 mmol/L 136-145 N POTASSIUM (test code = K) 2.9 mmol/L 3.5-5.1 L Re sults called to [id number] by V.LAB.P 06/29/19 1323Critical results verified and read back [...] code = CA) 7.9 mg/dL 8.5-10.1 L [id number] 12:56:00* Test Item Value Reference Range Interpretation Comments GLUBED (test code = GLUBED) 124 mg/dL 74-106 H Performed by certified steam plant control room operator at [facility] CBC W/AUTO [id number] 12:32:00* Test Item Value Reference Range Interpretation [...] code = NRBC#) 0.00 K/mm3 0.0-0.1 N [id number] 08:10:00* Test Item Value Reference Range Interpretation Comments GLUBED (test code = GLUBED) 99 mg/dL 74-106 N Performed by certified steam plant control room operator at [facility] [id number] 20:56:00* Test Item Value Reference Range Interpretation Comments GLUBED (test code = GLUBED) 95 mg/dL 74-106 N Performed by certified steam plant control room [facility] [id number] 18:55:00* Test Item Value Reference Range Interpretation Comments GLUBED (test code = GLUBED) 112 mg/dL 74-106 H Performed by certified steam plant control room operator at [facility] [id number] 12:44:00* Test Item Value Reference Range Interpretation Comments GLUBED (test code = GLUBED) 136 mg/dL 74-106 H Performed by certified steam plant control room operator at [facility] BASIC METABOLIC [id number] 11:35:00* Test Item Value Reference Range Interpretation [...] code = CA) 7.6 mg/dL 8.5-10.1 L [id number] 08:28:00* Test Item Value Reference Range Interpretation Comments GLUBED (test code = GLUBED) 118 mg/dL 74-106 H Performed by certified steam plant control room operator at [facility] CBC W/MANUAL [id number] 08:03:00* Test Item Value Reference Range Interpretation [...] (test code = PLTMORPH) NORMAL CBC W/MANUAL [id number] 05:03:00* Test Item Value Reference Range Interpretation [...] MORPHOLOGY (test code = PLTMORPH) CBC W/MANUAL [id number] 05:03:00* Test Item Value Reference Range Interpretation [...] MORPHOLOGY (test code = PLTMORPH) CBC W/MANUAL [id number] 05:03:00* Test Item Value Reference Range Interpretation [...] MORPHOLOGY (test code = PLTMORPH) CBC W/MANUAL [id number] 05:02:00* Test Item Value Reference Range Interpretation [...] MORPHOLOGY (test code = PLTMORPH) CBC W/MANUAL [id number] 05:02:00* Test Item Value Reference Range Interpretation [...] PLTEST) PLATELET MORPHOLOGY (test code = PLTMORPH) [id number] 16:09:00* Test Item Value Reference Range Interpretation Comments GLUBED (test code = GLUBED) 111 mg/dL 74-106 H Performed by certified steam plant control room [facility] [id number] 12:16:00* Test Item Value Reference Range Interpretation Comments GLUBED (test code = GLUBED) 61 mg/dL 74-106 L Performed by certified steam plant control room operator at [facility] BASIC METABOLIC [id number] 11:47:00* Test Item Value Reference Range Interpretation [...] 7.8 mg/dL 8.5-10.1 L TSH REFLEX TO [id number] 11:47:00* Test Item Value Reference Range Interpretation Comments TSH REFLEX TO FT4 (test code = TSHREFLEX) 2.7 0.4-5.5 N BASIC METABOLIC [id number] 11:37:00* Test Item Value Reference Range Interpretation [...] = CA) mg/dL 8.5-10.1 TSH REFLEX TO [id number] 11:37:00* Test Item Value Reference Range Interpretation Comments TSH REFLEX TO FT4 (test code = TSHREFLEX) 0.4-5.5 CBC W/MANUAL [id number] 09:44:00* Test Item Value Reference Range Interpretation [...] code = IMMAT) 0 % 0-0 N [id number] 09:07:00* Test Item Value Reference Range Interpretation Comments GLUBED (test code = GLUBED) 63 mg/dL 74-106 L Performed by certified steam plant control room operator at [facility] CBC W/MANUAL [id number] 08:46:00* Test Item Value Reference Range Interpretation [...] PLTEST) PLATELET MORPHOLOGY (test code = PLTMORPH) [id number] 08:46:00* Test Item Value Reference Range Interpretation Comments GLYCOSYLATED HEMOGLOBIN (HA1C) (test code = GLYHGB) 5.0 % HbA1 4. 8-6.0 N ESTIMATED AVERAGE GLUCOSE (test code = EAG) 97 MG/DL CBC W/MANUAL [id number] 08:46:00* Test Item Value Reference Range Interpretation [...] MORPHOLOGY (test code = PLTMORPH) CBC W/MANUAL [id number] 08:46:00* Test Item Value Reference Range Interpretation [...] MORPHOLOGY (test code = PLTMORPH) CBC W/MANUAL [id number] 08:46:00* Test Item Value Reference Range Interpretation [...] MORPHOLOGY (test code = PLTMORPH) CBC W/MANUAL [id number] 08:46:00* Test Item Value Reference Range Interpretation [...] PLATELET MORPHOLOGY (test code = PLTMORPH) URINALYSIS [id number] 03:08:00* Test Item Value Reference Range Interpretation [...] FEW #/LPF FEW Urine Source? Clean CatchPROTHROMBIN [id number] 22:45:00* Test Item Value Reference Range Interpretation [...] heart valves (2.5-3.5) HEMOLYZED, REDRAW REQUESTED FROM ER, SHAGGY CHAUDHARY.06/26/191935 PATIENT O N ANTICOAGULANTS? NTHROMBOPLASTIN TIME [id number] 22:45:00* Test Item Value Reference Range Interpretation Comments THROMBOPLASTIN TIME PARTIAL (test code = PTT) 30.4 seconds 25.0-36. 5 N HEMOLYZED, REDRAW REQUESTED FROM ERJET V.LAB.06/26/191935 PATIENT O N ANTICOAGULANTS? NCBC W/MANUAL [id number] 22:12:00* Test Item Value Reference Range Interpretation [...] code = IMMAT) 0 % 0-0 N [id number] 20:05:00* Test Item Value Reference Range Interpretation Comments MAGNESIUM (test code = MAG) 2.2 mg/dL 1.8-2.4 N B-TYPE NATRIURETIC [id number] 20:05:00* Test Item Value Reference Range Interpretation Comments B-TYPE NATRIURETIC PEPTIDE (test code = BNP) 144.16 pgram/mL 0-100 H LACTIC [id number] 19:27:00* Test Item Value Reference Range Interpretation Comments LACTIC ACID (test code = LACT) 1.0 mmol/L 0.4-1.9 N BASIC METABOLIC [id number] 19:26:00* Test Item Value Reference Range Interpretation [...] CA) 7.7 mg/dL 8.5-10.1 L HEPATIC FUNCTION [id number] 19:26:00* Test Item Value Reference Range Interpretation [...] reference range due to change in reagent. [id number] 19:26:00* Test Item Value Reference Range Interpretation Comments TROPONIN-I (test code = TROPI) <0.015 ng/mL 0-0.045 N CBC W/MANUAL [id number] 19:25:00* Test Item Value Reference Range Interpretation [...] MORPHOLOGY (test code = PLTMORPH) CBC W/MANUAL [id number] 19:25:00* Test Item Value Reference Range Interpretation [...] MORPHOLOGY (test code = PLTMORPH) CBC W/MANUAL [id number] 19:25:00* Test Item Value Reference Range Interpretation [...] MORPHOLOGY (test code = PLTMORPH) CBC W/MANUAL [id number] 19:25:00* Test Item Value Reference Range Interpretation [...] MORPHOLOGY (test code = PLTMORPH) CBC W/MANUAL [id number] 19:25:00* Test Item Value Reference Range Interpretation [...] MORPHOLOGY (test code = PLTMORPH) BASIC METABOLIC [id number] 19:17:00* Test Item Value Reference Range Interpretation [...] code = CA) mg/dL 8.5-10.1 HEPATIC FUNCTION [id number] 19:17:00* Test Item Value Reference Range Interpretation [...] TOTAL (test code = ALKP) IUnit/L 45-117 [id number] 19:17:00* Test Item Value Reference Range Interpretation Comments TROPONIN-I (test code = TROPI) ng/mL 0-0.045 POC LACTIC [id number] 18:59:00* Test Item Value Reference Range Interpretation Comments POC LACTIC ACID (test code = POCLAC) 1.19 MMOL/L 0.4-2.2 N - XR CHEST 1 [id number] 18:58:00 FAX: Ashley Denis [phone] [place]: St: PRE Name: SADA LANDAVERDE [facility] : [birth year] Age/S: 68/F [address] [facility] Unit #: [id number] Loc: [place] [address] Phys: Ashley Atkinson MD Acct: [id number] Dis Date: Status: PRE ER PHONE #: [phone] Exam Date: 06/26/2019 1850 FAX #: [phone] Reason: CODE SEPSIS EXAMS: CPT CODE: [id number] XR CHEST 1 V 48112 REASON FOR EXAM: CODE SEPSIS EXAM ORDER DATE: 06/26/2019 6:34 PM Ordering Caitie: Ashley Atkinson MD PROCEDURE: - XR CHEST 1 V CO MPARISON: FINDINGS: Portable AP frontal view of the chest obtaine d at 6:48 PM shows clear lungs without evidence of consolidation. There is no evidence of effusion. The heart size is minimally enlarged. Pulmonary vasculatures are unremarkable. IMPRESSION: No active dise ase. at 5503 Reported and signed by: Richie Howard M.D. CC: Ashley Atkinson MD Technologist: CARLINE CHANEY RT (R) Trnscrd Date/Time/By: 06/26/2019 (1857) : By: ShirleyVTL Orig Print D/T: S: 06/26/2019 (1900) PAGE 1 Signed Report - CT ABD PELVIS [id number] 02:44:00 Name: SADA KARIMI [facility] : 1950 Age/S: 68 / F [address] [facility] Unit #: [id number] Loc: [place] [address] Phys: Carla Hunt MD Acct: [id number] Dis Date: Status: REG ER PHONE #: [phone] Exam Date: 05/05/2019214 FAX #: [phone] Reason: ABD PAIN EXAMS: CPT CODE: [id number] CT ABD PELVIS W/CONT 19871 EXAM: - CT ABD PELVIS W/CONT HISTORY: Abdominal pain. TECHNIQUE: Axial tomograms through the abdomen and pelvis were obtained after intravenous contrast. Coronal and sagittal reformatted images are provided. This exam was performed according to our departmental dose-optimization program, which includes automated exposure control, adjustment of the mA and/or kV according to patient size and/or use of iterative reconstruction technique. COMPARISON: None available time of interpretation. FINDINGS: The visualized lung bases are clear. Again noted is a chronic trace pericardial effusion. Calcific plaques in coronary arteries. Status post cholecystectomy. The liver, spleen, pancreas, adrenal glands and kidneys demonstrate no significant abnormalities. No hydronephrosis. The appendix has a normal appearance. The bowel is unremarkable. There is no adenopathy or free fluid. Suprapubic urinary bladder catheter is present. The urinary bladder is decompressed. There is minimal chronic urinary bladder wall thickening. The osseous structures demonstrate degenerative parrish e without focal lesion. There is calcified plaque involving the abdominal aorta and it's major branching vessels. IMPRESSIO N: No definite acute abnormality. Multiple c hronic findings as above. PAGE 1 Signed Report (CONTINUED) Name: SADA KARIMI [facility] : 1950 Age/S: 68 / F [address] [facility] Unit #: [id number] Loc: [place] [address] Phys: Carla Hunt MD Acct: [id number] Dis Date: Status: REG ER PHONE #: [phone] Exam Date: 05/05/2019 021 FAX #: [phone] Reason: ABD PAIN EXAMS: CPT CODE: [id number] CT ABD PELVIS W/CONT 02562 < Continued> at 0244 Reported and signed by: Peyman Pereira MD CC: Carla Hunt MD Technologist:ISABELLE JACOBO CTDI: DLP: Trnscb Date/Time: 05/05/2019 (243) [id number] Orig Print D/T: S: 05/05/2019 (246) PAGE 2 Signed Report CBC W/AUTO [id number] 22:51:00* Test Item Value Reference Range Interpretation [...] (test code = MDIFF) NO COMPREHENSIVE METABOLIC [id number] 22:44:00* Test Item Value Reference Range Interpretation [...] due to change in reagent. COMPREHENSIVE METABOLIC [id number] 22:37:00* Test Item Value Reference Range Interpretation [...] (test code = ALKP) IUnit/L 45-117 URINALYSIS [id number] 19:29:00* Test Item Value Reference Range Interpretation [...] A UA PH DIPSTICK (test code = NDIHI) 6.0 5.0-8.0 UA PROTEIN DIPSTICK (test code [...]
--- NOTE | 2020-10-16 06:12 | Emergency Department Note ---
History of Present Illnes History of Present Illness Chief Complaint: Extremity Trauma/Pain History of Present Illness This is a 69 year old female arrived to the ED for evaluation of a right elbow hematoma, patient unable to provide history and collateral information received from nursing staff and longterm . Chief Complaint Comment Patient brought in from [facility] for hematoma to right elbow area. Per EMS, longterm wanted to rule out DVT. Historian: Banquet Steward/EMS Arrival Mode: [facility] History limited by: condition of the patient Onset (how long ago): unknown Onset quality: unable to specify Progression: unable to specify Past Medical/Family History Physician Review I have reviewed the patient's past medical and family history. Any updates have been documented here. Past Medical History Recent Fever: No Clinical Suspicion of Infectio: No New/Unexplained Change in Ment: No Past Medical History: Hypertension, CHF, CVA, A-Fib, Hypothyroidism, UTI's, Hyperlipedemia Other Medical History: DYSPHAGIA, AMS UNSPECIFIED; CONSTIPATION;HIGH CHOLESTEROL ; ANEMIA; DEMENTIA muscle wasting;neuromuscular dysfunction of bladder; chronic pain; sob; MITZI; [place]: dysphasgia; TIA; cellulitis; Past Surgical History: Cholecysctectomy Social History Smoking Cessation: Unknown if ever smoked Other Last Tetanus: UNKNOWN Review of Systems ROS Narrative Unable to obtain ROS: altered mental status Physical Exam Related Data Allergies: Coded Allergies: No Known Allergies (Unverified , 08/07/20) Triage Vital Signs Vital Signs Date Time Temp Pulse Resp B/P (MAP) Pulse Ox O2 Delivery O2 Flow Rate FiO2 10/16/20 05:16 98.3 82 20 104/56 100 Room Air Vital signs reviewed: Yes Physical Exam CONSTITUTIONAL Constitutional: Present well-developed HENT HENT: Present normocephalic, Present atraumatic, Present oropharynx clear/moist, Present nose normal HENT L/R: Present left ext ear normal, Present right ext ear normal EYES Eyes: Reports PERRL, Reports conjunctivae normal NECK Neck: Present ROM normal PULMONARY Pulmonary: Present effort normal, Present breath sounds normal CARDIOVASCULAR Cardiovascular: Present regular rhythm, Present heart sounds normal, Present capillary refill normal, Present normal rate GASTROINTESTINAL Abdominal: Present soft, Present nontender, Present bowel sounds normal GENITOURINARY Genitourinary: Present exam deferred SKIN Skin: Present warm, Present dry, Present other (skin exam reveals multiple areas of ecchymosis in various stages of healing, hemorrhagic blister noted over right lateral elbow) MUSCULOSKELETAL Musculoskeletal: Present ROM normal NEUROLOGICAL Neurological: Present alert, Present oriented x 3, Present no gross motor or sensory deficits PSYCHOLOGICAL Psychological: Present mood/affect normal, Present judgement normal Results Imaging Imaging results reviewed: Yes Assessment & Plan Medical Decision Making MDM 69-year-old female sent to the ED for evaluation by upper extremity injury, x- rays and DVT study negative. Patient stable for discharge back to facility. Assessment & Plan Final Impression: (1) Contusion of right arm Depart Disposition: DIS TO [facility]IOR [facility]IV[facility] BED Last Vital Signs Date Time Temp Pulse Resp B/P (MAP) Pulse Ox O2 Delivery O2 Flow Rate FiO2 10/16/20 05:16 98.3 82 20 104/56 100 Room Air Home Meds Reported Medications [[place]] No Conflict Check, 1 PUMP TOP DAILY 04/12/20 Melatonin (MELATONIN) 3 Mg Tablet, 5 MG PO PRN, TAB 04/12/20 Acetaminophen (ACETAMINOPHEN) 650 Mg Tablet, 650 MG PO PRN 04/12/20 Ondansetron Hcl (ZOFRAN) 8 Mg Tablet, 4 MG PO PRN 04/12/20 Dabigatran Etexilate Mesylate (PRADAXA) 75 Mg Capsule, 1 CAP PO BID 04/10/20 Ferrous Sulfate (FERROUS SULFATE) 325 Mg Tablet, 1 TAB PO BID 04/10/20 Metoprolol Tartrate (METOPROLOL TARTRATE) 50 Mg Tablet, 75 MG PO Q12HR, TAB 04/10/20 Midodrine Hcl (MIDODRINE HCL) 5 Mg Tablet, 5 MG PO BID, TAB HOLD IF SBP > 130 04/10/20 Levothyroxine Sodium (LEVOTHYROXINE SODIUM) 75 Mcg Tablet, 75 MCG PO DAILY, #30 TAB 04/10/20 Atorvastatin Calcium (ATORVASTATIN CALCIUM) 40 Mg Tablet, 40 MG PO HS, #30 TAB 04/10/20 Lactulose (LACTULOSE) 20 Gm/30 Ml Solution, 30 ML PO DAILY, EACH 04/10/20 Docusate Sodium (DOCUSATE SODIUM) 100 Mg Capsule, 100 MG PO DAILY, CAP 04/10/20 Aspirin (ASPIRIN) 81 Mg Tab.chew, 1 TAB PO DAILY 04/10/20 BLAKE BROWN DO Oct 16, 2020 06:12
--- NOTE | 2020-10-16 06:59 | NUR ---
BEDSIDE REPORT COMPLETED FROM APOLLO MORENO
--- NOTE | 2020-10-16 07:10 | Diagnostic Imaging Report ---
X-ray right shoulder 1 view. X-ray right humerus 2 views. X-ray right forearm 2 views. HISTORY: Pain. COMPARISON: None available. FINDINGS: Limited evaluation of the right shoulder due to single view. No definite acute displaced fracture. No fracture of the right humeral shaft. No fracture of the right radial and ulnar shafts. Right elbow is not well assessed. Bones are demineralized. Soft tissue swelling at the posterior aspect of the proximal forearm and elbow IMPRESSION: 1. No acute fracture of the right shoulder identified on limited single view radiograph. If there is concern for dislocation, consider dedicated 3 view study of the right shoulder. 2. No acute fracture of the right humeral, radial, ulnar shafts. 3. Suboptimal evaluation of the right elbow. Soft tissue swelling at the posterior aspect of the proximal forearm and elbow, which may relate to hematoma. Recommend dedicated 3 view radiographic study of the elbow if concern for traumatic injury. Signed by: Jose A Chaparro MD on 10/16/2020 7:06 AM
--- NOTE | 2020-10-16 07:41 | NUR ---
ULTRASOUND AT AT BEDSIDE
== END 2020-10-16 09:36 ==
LOC: ER 05:38
DX: S50.01XA Contusion of right elbow, initial encounter (principal); R60.9 Edema, unspecified; F03.90 Unspecified dementia, unspecified severity, without behavioral disturbance, psychotic disturbance, mood disturbance, and anxiety; R13.10 Dysphagia, unspecified; I10 Essential (primary) hypertension; E78.5 Hyperlipidemia, unspecified; I48.91 Unspecified atrial fibrillation; Z86.73 Personal history of transient ischemic attack (TIA), and cerebral infarction without residual deficits
CPT/HCPCS: 93971; 99284

== ENCOUNTER 2020-12-06 20:41 | Observation (INO) | payer MEDICARE, OTHER ==
[~2020-12-06] VITALS: Ht 160 cm; Wt 77.1 kg
[~2020-12-06 20:41] MED LIST changes: +ATORVASTATIN CA40 MG PEG; -ATORVASTATIN CA40 MG PO; +FERROUS SULFAT325 MG PEG; -FERROUS SULFAT325 MG PO; +MIDODRINE HCL5 MG PEG; -MIDODRINE HCL5 MG PO
[2020-12-06 21:19] LABS: BASOPHILS % 0.4 % (0.0-1.0); EOSINOPHILS # (AUTO) 0.2 (0.0-0.4); EOSINOPHILS % 2.8 % (0.0-6.0); LYMPHOCYTES # (AUTO) 0.8 (1.0-3.2); LYMPHOCYTES % 9.9 % (18.0-39.1); MEAN CORPUSCULAR HEMOGLOBIN 29.8 pg (28-32); MEAN CORPUSCULAR HGB CONC 31.7 g/dL (31-35); MEAN CORPUSCULAR VOLUME 93.8 fL (81-99); MONOCYTES # (AUTO) 0.4 (0.2-0.8); MONOCYTES % 4.8 % (4.4-11.3); NEUTROPHILS # (AUTO) 6.2 (2.1-6.9); NEUTROPHILS % 76.7 % (38.7-80.0); PLATELET COUNT 134 x10e3/uL (140-360); RED BLOOD COUNT 1.78 x10e6/uL (3.6-5.1); RED CELL DISTRIBUTION WIDTH 22.2 % (11.7-14.4)
[2020-12-06 21:21] LABS: HEMATOCRIT 16.7 % (34.2-44.1); HEMOGLOBIN 5.3 g/dL (12.0-16.0)
[2020-12-06 21:29] LABS: INR 1.18; PROTHROMBIN TIME 15.8 seconds (11.9-14.5)
[2020-12-06 21:30] LABS: PARTIAL THROMBOPLASTIN TIME 42.6 seconds (23.8-35.5)
[2020-12-06 21:38] LABS: ALBUMIN/GLOBULIN RATIO 0.7 (0.8-2.0); ANION GAP 12.7 mmol/L (8-16); CALCIUM 8.5 mg/dL (8.4-10.2); CREATININE, SERUM 1.54 mg/dL (0.57-1.11); POTASSIUM 3.7 mmol/L (3.5-5.1)
[2020-12-06] MEDS ORDERED: ONDANSETRON HCL INJ 2MG/ML 2ML 2 MG/ML VIAL IV PRN (21:45)
[2020-12-06] MEDS: DEXTROSE 5%/0.45% SOD CHL 1,000 ML IV SCH (21:59)
[2020-12-06 23:00] VITALS: BP 41/25
[2020-12-07] VITALS (7 sets, daily range): BP systolic 41–76; BP diastolic 24–47
[2020-12-07] MEDS ORDERED: ELIQUIS2.5 MG PEG (01:00)
[2020-12-07] MEDS ORDERED: THIAMINE H100 MG/1 M PEG (01:00)
[2020-12-07] MEDS ORDERED: REMERON15 MG PEG (01:00)
[2020-12-07] MEDS ORDERED: NEPHRO-VITE TABL1 EA PEG (01:00)
[2020-12-07] MEDS ORDERED: NAMENDA5 MG PEG (01:00)
[2020-12-07] MEDS ORDERED: AMIODARONE HCL200 MG PEG (01:00)
[2020-12-07] MEDS: DEXTROSE 5%/0.45% SOD CHL 1,000 ML IV SCH (13:22)
[2020-12-08 00:30] VITALS: BP 74/55
== END 2020-12-08 01:02 ==
LOC: ER 20:44 → ERHOLD 21:44 → MED/SURG3 22:34
PROVIDERS: ADMIT Internal Medicine; ATTEND Internal Medicine
DX: A41.9 Sepsis, unspecified organism (principal); R57.8 Other shock; E86.0 Dehydration; R65.20 Severe sepsis without septic shock; Z66 Do not resuscitate; I10 Essential (primary) hypertension; I48.91 Unspecified atrial fibrillation; Z79.01 Long term (current) use of anticoagulants; F03.90 Unspecified dementia, unspecified severity, without behavioral disturbance, psychotic disturbance, mood disturbance, and anxiety; Z20.822 Contact with and (suspected) exposure to COVID-19; D64.9 Anemia, unspecified; T68.XXXA Hypothermia, initial encounter
CPT/HCPCS: 36415; 80053; 82948; 85025; 85610; 85730; 86850; 86900; 96361; 99284; G0378 ×2; U0002